=== PATIENT | male | born 1940 | race Caucasian/White ===

== ENCOUNTER 2019-07-01 15:09 | Outpatient (CLI) | payer MEDICARE, OTHER, SELFPAY | END 2019-07-01 15:10 | disposition home or self-care (01) | LOC: SPT 15:11 | PROVIDERS: Family Provider Family Medicine; PCP Family Medicine; Visit Provider Podiatrist Foot & Ankle Surgery | DX: M79.671 Pain in right foot (principal) | CPT/HCPCS: L4361 ==

== ENCOUNTER 2019-11-26 12:48 | Outpatient (CLI) | payer MEDICARE, OTHER, SELFPAY ==
--- NOTE | 2019-11-26 | CT_ITS ---
WS: [id number] CT CHEST WITHOUT INTRAVENOUS CONTRAST HISTORY: LUNG NODULES TECHNIQUE: Contiguous 5 mm axial imaging performed on the thorax. Coronal and sagittal reformats are submitted. All CT scans at [facility] use at least one of these dose optimization techniq ues: automated exposure control; mA and/or kV adjustment per patient size (includes targeted exams wh ere dose is matched to clinical indication); or iterative reconstruction. CONTRAST: None DLP: 1889.43 mGycm COMPARISON: 11/20/2018 Lungs and central airway: Lungs are hyperexpanded from emphysema. Paraseptal emphysematous changes. S table nodules in the superior segment of the LEFT lower lobe. The largest measures 4.2 mm. Subpleural 5 mm nodule in the periphery of the RIGHT lower lobe is stable. No new nodules. No pneumonia. There is some very mild soft tissue thickening along the posterior wall of the trachea which may be mucus. Pleura: Normal. No pleural effusion. Heart and pericardium: Mildly enlarged heart. No effusion. Mediastinum and oriana: No adenopathy. Vessels: Extensive atherosclerosis of the aorta. No aneurysm. Mildly dilated pulmonary artery. Chest wall and lower neck: No soft tissue masses. Upper abdomen: Negative adrenal glands. There are small hypodensities in the liver which are stable a nd probably cysts. Osseous structures: Increase in thoracic kyphosis with degenerative disc disease. No osteoblastic or osteolytic bone disease. CT/CT chest wo con [id number] IMPRESSION: 1. Stable bilateral lower lobe pulmonary nodules. No change since 11/20/2018. R ecommend additional [address] follow-up to document continued stability for a total of 2 years. 2. Chronic emphysema. 3. Atherosclerosis aorta and mild dilatation of the pulmonary artery.
== END 2019-11-26 12:49 | disposition home or self-care (01) ==
LOC: RADWPI 12:56
PROVIDERS: Family Provider Family Medicine; PCP Family Medicine; Visit Provider Family Medicine
DX: R91.8 Other nonspecific abnormal finding of lung field (principal); J43.9 Emphysema, unspecified; I70.0 Atherosclerosis of aorta; I28.1 Aneurysm of pulmonary artery
CPT/HCPCS: 71250

== ENCOUNTER 2019-11-27 15:47 | Outpatient (CLI) | payer MEDICARE, OTHER, SELFPAY | END 2019-11-27 15:48 | disposition home or self-care (01) | LOC: SPT 15:48 | PROVIDERS: Family Provider Family Medicine; PCP Family Medicine; Visit Provider Podiatrist Foot & Ankle Surgery | DX: M20.21 Hallux rigidus, right foot (principal); M20.22 Hallux rigidus, left foot; L97.512 Non-pressure chronic ulcer of other part of right foot with fat layer exposed | CPT/HCPCS: 97760; L3031 ==

== ENCOUNTER 2020-04-16 07:58 | Emergency (ER) | payer MEDICARE, OTHER, SELFPAY ==
[2020-04-16 07:59] VITALS: BP 149/63; PULSE 65; RESP 18; TEMP 36.6; O2SAT 97; BMI 32.3
--- NOTE | 2020-04-16 08:02 | CT_ITS ---
WS: [id number] CT FACIAL BONES TECHNIQUE: Noncontrast facial bones with coronal and sagittal reformatted images. CLINICAL INFORMATION: Fall/injury COMPARISON: None. DLP: 846.[address] scans at [facility] use at least one of these dose optimization techniques: automat ed exposure control; mA and/or kV adjustment per patient size (includes targeted exams where dose is matched to clinical indication); or iterative reconstruction. FINDINGS: Soft tissue edema overlying the nasal bones and left facial bones. Soft tissue edema overlying the le ft orbit. Comminuted fractures involving the anterior nasal bones. Slightly displaced left nasal bone fracture. Chronic appearing nasal septal deviation. Blood products in the left maxillary sinus. Slig htly depressed left anterior wall maxillary sinus fracture. Depression measures 2.8 mm. Slightly depressed left orbital floor fracture with herniated intraorbital fat. No entrapment of the inferior rectus. Depression measures approximately 3 mm. Left lateral orbit appears normal. Normal la sophie papyracea. Both zygoma are intact. No evidence of mandibular fracture dislocation. Normal pterygoid plates. Slight anterolisthesis C4 on C5. CT/CT facial bones wo con* [id number] IMPRESSION: 1. Left inferior orbit and anterior maxillary wall fractures. 2. Slightly depressed left inferior orbit fracture measuring 3 mm with herniat ion of intraorbital fat. No tethering of the inferior rectus. Blood products in the left maxillary sinus. 3. Comminuted anterior nasal bone fractures described above. 4. Mandible is normal in appearance. No mandibular fracture dislocation. Notified Vicky Malone at 04/16/2020 8:52 AM.
--- NOTE | 2020-04-16 08:03 | CT_ITS ---
WS: [id number] CT HEAD TECHNIQUE: Noncontrast CT of the head obtained from the skullbase to the vertex. CLINICAL INFORMATION: Fall/injury COMPARISON: 5 14 DLP: 887.[address] scans at [facility] use at least one of these dose optimization techniques: automat ed exposure control; mA and/or kV adjustment per patient size (includes targeted exams where dose is matched to clinical indication); or iterative reconstruction. FINDINGS: No evidence of intracranial hemorrhage or mass effect. Ventricular system and basal cisterns are maria nt. Mild small vessel changes with mild parenchymal volume loss. No extra-axial fluid collections. No evidence of mass or mass effect. Normal nash-white differentiation. Soft tissue edema left facial soft tissues and left orbit. Fluid and blood products within left maxil twyla sinus. Mastoid air cells are well aerated. Comminuted fractures involving the anterior nasal bon es. Depressed left maxillary sinus fracture. Facial findings will be described on the facial CT. CT/CT head wo con* [id number] IMPRESSION: 1. No evidence of intracranial hemorrhage or mass effect. 2. Mild small vessel changes. Mild parenchymal volume loss. 3. Blood products in the left maxillary sinus. 4. Left anterior maxillary sinus fracture. Slightly comminuted nasal bone frac tures. Facial fractures will be described on face CT. Notified Vicky Malone at 04/16/2020 8:43 AM.
--- NOTE | 2020-04-16 08:04 | W.ED.GENADLT ---
Documented by User: Vicky Malone 04/16/20 11:55 HPI - General Adult General: Chief complaint: Fall Stated complaint: FALL Time Seen by Provider: 04/16/20 07:59 Source: patient and EMS Mode of arrival: EMS Limitations: no limitations History of Present Illness: HPI narrative: Mr. Camejo is a nice 80-year-old male who comes in after a fall at home this morning. Patient states that his slippers did not have traction and slipped causing him to fall and hit his head on the floor. He knows he was definitely dazed but does not believe that he had any loss of consciousness when he hit the ground. Patient complains of pain to his head and face. EMS reports mild confusion at the scene that resolved and transported here to the hospital. He also had significant nasal bleeding which is also resolved on his way here to the hospital. Patient denies any neck pain. He does complain of left hip pain. EMS has not had the patient ambulate and is unsure whether he was ambulatory prior to this. Patient denies being on any blood thinners or antiplatelet agents. He denies any chronic medical problems other than enlarged prostate. Patient is unaware of anything that makes his symptoms better or worse he does not have time to really evaluate for that. He has not tried anything at home for his pain or discomfort prior to coming in. Pressure on his nose did help resolve the bleeding. Associated symptoms: Deny chest pain, confusion, diaphoresis, dyspnea, malaise, nausea, rash, palpitations, syncope or vomiting Review of Systems Const: Denies: fever(s), chills, body aches, fatigue, malaise or diaphoresis Eyes: Denies: change in vision, blurry vision, photophobia, eye discomfort, eye discharge, eye redness or yellow eyes ENMT: Denies: throat pain, odynophagia, hoarseness, swelling of lips/tongue, ear or mastoid pain, ear discharge, change in hearing or nasal discharge Card: Denies: chest pain, palpitations, irregular heart rhythm, edema, lightheadedness, syncope, pre-syncope, dyspnea on exertion or orthopnea Resp: Denies: dyspnea, productive cough, non-productive cough, wheezing, hemoptysis or chest congestion GI: Denies: abdominal pain, nausea, vomiting, hematemesis, coffee ground emesis, heartburn, diarrhea, constipation, GI cramping, hematochezia or melena : Denies: flank pain, dysuria, urinary frequency, urinary urgency or hematuria Musc: Denies: neck pain, back pain, extremity pain, extremity swelling, joint pain, joint swelling, joint redness, joint warmth or joint stiffness Skin/Breast: Denies: rash, pruritus, erythema, skin pain or skin tenderness Neuro: Denies: numbness in extremities, weakness in extremities, sensory changes, lack of coordination, difficulty walking, dizziness, vertigo, confusion, Slurred speech present or seizure-like activity Mauricio/Lymph: Denies: easy bruising, easy bleeding, petechiae, purpura or enlarged lymph nodes All/Imm: Denies: urticaria, throat swelling, tongue swelling, facial swelling or acute wheezing PFSH ED PFSH: Medical History BPH (benign prostatic hyperplasia) Hallux rigidus of both feet Surgical History H/O eye surgery Family History Father Cancer Brother Diabetes Denies family history of CAD (coronary artery disease) Clotting disorder Dementia Hyperlipidemia Psychiatric illness Chronic kidney disease (CKD) Suicide Anesthesia complication Bleeding disorder Family history of premature coronary artery disease Lung disease Hypertension Stroke Social History Smoking and tobacco status: former smoker Quit status (tobacco): has quit using tobacco Second hand smoke exposure: Yes Smoking risk assessment/counseling performed?: Yes Alcohol intake: never Desire information about alcohol rehabilitation?: No Counseling given: No Desire information about substance/drug rehabilitation?: No Counseling given: No Adopted: No Caregiver/support person: No Lives independently: Yes Household members: spouse Housing: House Marital status: Current occupational status: retired Current occupational exposures/hazards: No History of recent travel: No Current gender identity: Male Physical Exam Const: COMMON NORMALS: no acute distress, patient oriented x3, no limitations and alert GENERAL APPEARANCE: cooperative HENMT: COMMON NORMALS: normocephalic, external ears normal and EAC's normal HEAD & SCALP: normal to inspection and normocephalic FACE & SINUS: normal facial exam and face symmetric NOSE: Epistaxis present bilaterally dried blood present and Other nasal findings present (Swelling with skin abrasion noted to left eyebrow. Extraocular muscles are intact. No diplopia present. Nose swollen with hematoma present. No septal hematoma seen.) EXTERNAL EAR: Yes external ears normal EXTERNAL AUDITORY CANAL: EAC's normal MOUTH: Normal oral and palatal mucosa present, lip normal and tongue normal Eye: COMMON NORMALS: Equal, round and reactive pupils present and conjunctivae normal GENERAL EYE: appearance normal, both eyes and all related structures ALIGNMENT: Yes alignment normal PERIORBITAL: periorbital findings normal EYELID: eyelids normal CONJUNCTIVA: Yes conjunctivae normal SCLERA: sclerae normal PUPIL: Yes Equal, round and reactive pupils present Neck/C-Spine: COMMON NORMALS: full ROM, no lymphadenopathy, supple, no meningeal signs and no JVD GENERAL: Yes normal visual inspection and Yes trachea midline Chest: COMMONS NORMALS: normal inspection of the chest and normal palpation of entire chest wall Resp: COMMON NORMALS: normal respiratory effort, No retractions, No use of accessory muscles and clear to auscultation bilaterally EFFORT & INSPECTION: Yes able to speak in complete sentences and Yes symmetric chest movement AUSCULTATION: clear to auscultation bilaterally, no crackles, no rales, no rhonchi and no wheezes Cardio: COMMON NORMALS: no JVD, regular rate, regular rhythm, S1 normal heart sound present and S2 normal heart sound present RATE: regular rate RHYTHM: regular rhythm HEART SOUNDS: S1 normal heart sound present, S2 normal heart sound present, no click, no gallops, no murmurs and no rubs GI: COMMON NORMALS: Soft to palpation and No hepatosplenomegaly present PALPATION: Yes Soft to palpation, No Tenderness to palpation present (GI), No Guarding due to palpation present (GI), No Rigid due to palpation, Yes No hepatosplenomegaly present, No Hernia present, No Palpable mass present and No Pulsatile mass present : COMMON NORMALS: Yes no CVA tenderness BLADDER/KIDNEY EXAM: Yes no CVA tenderness Back/Pelvis: COMMON NORMALS: no CVA tenderness, thoracic and lumbar spine normal to inspection, no thoracic nor lumbar tenderness and thoraco-lumbar ROM normal Extremity: COMMON NORMALS: normal to inspection, full ROM, capillary refill normal, no joint enlargement, no clubbing, cyanosis or edema and no calf tenderness Neuro: COMMON NORMALS: patient oriented x3, CN's II-XII intact bilaterally, moves all extremities, no focal motor deficits and no sensory deficits noted SENSORIUM/ORIENTATION: Yes alert MENINGEAL SIGNS: Yes no meningeal signs SPEECH: speech normal Psych: COMMON NORMALS: mental status grossly normal, Normal thought process present, cooperative, normal affect, speech normal and activity/motor behavior normal SPEECH: Yes normal speech THOUGHT PROCESS: Normal thought process present Course ED course: 928 -patient up and able to ambulate without any increased pain in the left hip. Vital Signs: Vital signs: Vital Signs Temperature 97.9 F 04/16/20 07:59 Pulse Rate 72 04/16/20 11:11 Respiratory Rate 14 04/16/20 11:11 Blood Pressure 103/57 04/16/20 11:11 Pulse Oximetry 96 04/16/20 11:11 MDM - General Adult MDM Narrative: Medical decision making narrative: 1030 -Mr. Camejo is a nice 80-year-old male who had a mechanical fall at home after he tripped and fell forward. He hit his head but did not have loss of consciousness. His head CT is normal. He denies any neck pain. His facial bone CT results reviewed with Dr. Tamez his global commodity manager who states the patient can follow-up with him as an outpatient. I was unable to reach Dr. George as he is not on-call but I did review the case with Dr. Hernández out of [facility] and he agrees to see the patient in follow-up. Patient understands the importance of this. The patient was able to ambulate here without increased pain in his hip but nonetheless I have recommended a CT to further evaluate and to rule out a fracture but he refuses. He believes it is just bruised. He understands that my evaluation is limited by just x-ray and a CT scan could reveal a hip fracture which could become life and limb threatening if missed. Despite my warnings the patient declines any further evaluation and wants to go home. He is confident it is just bruised and declines any further care. Patient is clearly capable of making his own decisions his is encouraged him to stay and get this evaluation but he declines. Patient does understand though he is welcome to return here at any time should he change his mind or his symptoms change or worsen. Lab Data: Attestation: I reviewed the patient's lab results. Labs: Lab Results 04/16/20 04/16/20 Range/Units 09:20 09:20 WBC 8.6 (4.0-10.0) 10^3/ uL RBC 4.66 (4.1-5.3) 10^6/u L Hgb 14.7 (11.7-16.6) g/dL Hct 44.9 (42.0-52.0) % MCV 96.4 H (80-94) fL MCH 31.5 (28.0-34.0) pg MCHC 32.7 (30.0-36.0) g/dL RDW 12.3 (12.1-15.1) % Plt Count 174 (130-400) 10^3/c mm MPV 10.9 H (7.4-10.4) fL Neut % (Auto) 87.1 % Lymph % (Auto) 5.0 % [place] % (Auto) 7.0 % Eos % (Auto) 0.5 % Baso % (Auto) 0.1 % Neut # (Auto) 7.47 (1.8-7.7) 10^3/u L Lymph # (Auto) 0.4 L (0.8-4.8) 10^3/u L [place] # (Auto) 0.6 (0.2-0.9) 10^3/u L Eos # (Auto) 0.0 (0.0-0.8) 10^3/u L Baso # (Auto) 0.0 (0.0-0.1) 10^3/u L Nucleated RBC % (a uto) 0 % Nucleated RBCs # 0.0 /100WBC Sodium 135 L (136-145) mmol/L Potassium 4.3 (3.5-5.1) mmol/L Chloride 100 (98-107) mmol/L Carbon Dioxide 26 (22-29) mmol/L Anion Gap 13.3 (5-19) BUN 18 (8-23) mg/dL Creatinine 0.8 (0.7-1.2) mg/dL GFR Calculation Not Reportable Glucose 120 H (65-115) mg/dL Calculated Osmolal ity 283 L (285-295) mOsm/k g Calcium 9.0 (8.5-10.5) mg/dL Total Bilirubin 0.5 (0.15-1.2) mg/dL AST 19 (0-40) U/L ALT 17 (0-41) U/L Alkaline Phosphata se 90 (40-130) IU/L Total Protein 6.6 (6.6-8.7) g/dL Albumin 4.0 (3.5-5.2) g/dL Globulin 2.6 (1.3-4.6) g/dL Imaging Data^: CT Head: Radiologist's impression: [address] [place] [address] CT Scan Report Signed Patient: Kendall Camejo Unit #: [id number] : 1940 Age/Sex: 80 / M ADM Date: 04/16/20 Loc: ER Room/Bed: Attending Dr: Ordering Provider/Ordering MD: Vicyk Malone DO Date of Service: 04/16/20 Procedure(s): CT head wo con* [id number] Accession Number(s): [id number] Report Number: [id number] WS: [id number] CT HEAD TECHNIQUE: Noncontrast CT of the head obtained from the skullbase to the vertex. CLINICAL INFORMATION: Fall/injury COMPARISON: 9013 DLP: 887.[address] scans at [facility] use at least one of these dose optimization techniques: automated exposure control; mA and/or kV adjustment per patient size (includes targeted exams where dose is matched to clinical indication); or iterative reconstruction. FINDINGS: No evidence of intracranial hemorrhage or mass effect. Ventricular system and basal cisterns are patent. Mild small vessel changes with mild parenchymal volume loss. No extra-axial fluid collections. No evidence of mass or mass effect. Normal nash-white differentiation. Soft tissue edema left facial soft tissues and left orbit. Fluid and blood products within left maxillary sinus. Mastoid air cells are well aerated. Comminuted fractures involving the anterior nasal bones. Depressed left maxillary sinus fracture. Facial findings will be described on the facial CT. CT/CT head wo con* [id number] IMPRESSION: 1. No evidence of intracranial hemorrhage or mass effect. 2. Mild small vessel changes. Mild parenchymal volume loss. 3. Blood products in the left maxillary sinus. 4. Left anterior maxillary sinus fracture. Slightly comminuted nasal bone fractures. Facial fractures will be described on face CT. Notified Vicky Malone at 04/16/2020 8:43 AM. Dictated By: Cipriano Salomon MD Signed By: Cipriano Salomon MD Signed Date/Time: 04/16/20 0844 DD/ CT Facial Bones: Radiologist's impression: [address] [place] [address] CT Scan Report Signed Patient: Kendall Camejo Unit #: [id number] : 1940 Age/Sex: 80 / M ADM Date: 04/16/20 Loc: ER Room/Bed: Attending Dr: Ordering Provider/Ordering MD: Vicky Malone DO Date of Service: 04/16/20 Procedure(s): CT facial bones wo con* [id number] Accession Number(s): [id number] Report Number: [id number] WS: [id number] CT FACIAL BONES TECHNIQUE: Noncontrast facial bones with coronal and sagittal reformatted images. CLINICAL INFORMATION: Fall/injury COMPARISON: None. DLP: 846.[address] scans at [facility] use at least one of these dose optimization techniques: automated exposure control; mA and/or kV adjustment per patient size (includes targeted exams where dose is matched to clinical indication); or iterative reconstruction. FINDINGS: Soft tissue edema overlying the nasal bones and left facial bones. Soft tissue edema overlying the left orbit. Comminuted fractures involving the anterior nasal bones. Slightly displaced left nasal bone fracture. Chronic appearing nasal septal deviation. Blood products in the left maxillary sinus. Slightly depressed left anterior wall maxillary sinus fracture. Depression measures 2.8 mm. Slightly depressed left orbital floor fracture with herniated intraorbital fat. No entrapment of the inferior rectus. Depression measures approximately 3 mm. Left lateral orbit appears normal. Normal lamina papyracea. Both zygoma are intact. No evidence of mandibular fracture dislocation. Normal pterygoid plates. Slight anterolisthesis C4 on C5. CT/CT facial bones wo con* [id number] IMPRESSION: 1. Left inferior orbit and anterior maxillary wall fractures. 2. Slightly depressed left inferior orbit fracture measuring 3 mm with herniation of intraorbital fat. No tethering of the inferior rectus. Blood products in the left maxillary sinus. 3. Comminuted anterior nasal bone fractures described above. 4. Mandible is normal in appearance. No mandibular fracture dislocation. Notified Vicky Malone at 04/16/2020 8:52 AM. Dictated By: Cipriano Salomon MD Signed By: Cipriano Salomon MD Signed Date/Time: 04/16/20855 DD/ 3 Pelvis: Attestation: I personally reviewed and interpreted this imaging study as follows: My impression: No acute fractures dislocations Lt. Hip: Attestation: I personally reviewed and interpreted this imaging study as follows: My impression: No acute fractures or dislocations EKG Data^: EKG 1: Attestation: I personally reviewed and interpreted this EKG as follows: EKG interpretation date: 04/16/20 EKG interpretation time: 10:17 Interpretation: Normal sinus rhythm at 68 beats a minute, no blocks, normal intervals, no acute ST-T wave changes. Computer generated interpretation: Face CT 04/16/20 08:02 IMPRESSION: 1. Left inferior orbit and anterior maxillary wall fractures. 2. Slightly depressed left inferior orbit fracture measuring 3 mm with herniation of intraorbital fat. No tethering of the inferior rectus. Blood products in the left maxillary sinus. 3. Comminuted anterior nasal bone fractures described above. 4. Mandible is normal in appearance. No mandibular fracture dislocation. Notified Vicky Malone at 04/16/2020 8:[address] 04/16/20 08:03 IMPRESSION: 1. No evidence of intracranial hemorrhage or mass effect. 2. Mild small vessel changes. Mild parenchymal volume loss. 3. Blood products in the left maxillary sinus. 4. Left anterior maxillary sinus fracture. Slightly comminuted nasal bone fractures. Facial fractures will be described on face CT. Notified Vicky Malone at 04/16/2020 8:43 AM. Hip/Pelvis X-Ray 04/16/20 08:12 Impression: Negative left hip and pelvis. Discharge Plan Discharge Patient Disposition: Home Clinical Impression: Laceration, Skin tear Concussion without loss of consciousness Qualifiers: Encounter type: initial encounter Qualified Code(s): S06.0X0A - Concussion without loss of consciousness, initial encounter Orbital floor fracture Qualifiers: Encounter type: initial encounter Fracture type: closed Laterality: left Qualified Code(s): S02.32XA - Fracture of orbital floor, left side, initial encounter for closed fracture Fracture of maxillary sinus Qualifiers: Encounter type: initial encounter Fracture type: closed Qualified Code(s): S02.401A - Maxillary fracture, unspecified side, initial encounter for closed fracture Fracture of nasal bones Qualifiers: Encounter type: initial encounter Fracture type: closed Qualified Code(s): S02.2XXA - Fracture of nasal bones, initial encounter for closed fracture Condition: Stable Prescriptions: New Zithromax Z-Abhishek 250 mg tablet See Rx Instructions .ROUTE .COMPLEX Qty: 6 RF: 0 Zofran 4 mg tablet 4 mg PO Q6H PRN (Reason: nausea and vomiting) Qty: 20 RF: 0 No Action tamsulosin 0.4 mg capsule 0.4 mg PO ONCE RF: 0 triamcinolone acetonide 0.1 % cream 1 applic TOPICAL BID RF: 0 sennosides-docusate sodium [Lax Stool Softener With Senna] 8.6-50 mg tablet 1 tab-cap PO ONCE RF: 0 potassium 99 mg tablet PO RF: 0 magnesium 250 mg tablet 250 mg PO ONCE RF: 0 Men 50 Plus Multivitamin 300-600-300 mcg tablet 1 tab PO ONCE RF: 0 (DME) Sole Supports Qty: 1 RF: 0 (DME) carbon fiber See Rx Instructions .ROUTE .MEDSUPPLY Qty: 1 RF: 0 (DME) Gel toe sleeve, right hallux See Rx Instructions .Route .MEDSUPPLY Qty: 1 RF: 0 mupirocin 2 % ointment 1 applic TOPICAL BID 42 Days Qty: 22 RF: 1 Discharge Orders: Discharge Order (Routine); Ordered 04/16/20 Ordered By: Vicky Malone Referrals: Jose George MD [Physician] - 1-3 days Robert Tamez MD [Physician] - 1-3 days Robert Floyd MD [Primary Care Provider] - 1-3 days Discharge Diet: Advance as tolerated Discharge Activity: Increase activity as tolerated Patient Instructions: Fractures - Facial, Laceration (ED), Concussion (ED), Fractures - Nasal Activity Restrictions/Additional Instructions: Please return to the ER immediately for any of the signs or symptoms listed on your discharge instruction sheets, worsening/changing of your symptoms, you are not getting better as quickly as expected, or for ANY other cause or concerns. Be certain to follow-up with Dr. Floyd in 14 days to have your sutures removed. If you change your mind and she is to have further evaluation done of your left hip you are free to return here at any time for recheck. As I explained to you some hip fractures can be hard to see and I have offered and recommended to have a CT scan of your hip done today but you have declined but if you continue to have pain in your left hip please return to the ER for recheck. Be certain to follow-up with Dr. George or with Dr. Hernández [phone] at [facility] in the next 3 to 4 days for recheck of the fractures in your nose. Do not blow your nose or try to remove the clots from your nose until seen and evaluated by the ENT doctor of your choice. Discharge Date/Time: 04/16/20 11:48 Coding Level of Care Code ED Technician [employer] for Chg Fwd Exam Comprehensive Documented by User: [email or web address] Millan 04/16/20 13:41 HPI - General Adult General: Chief complaint: Fall Stated complaint: FALL Time Seen by Provider: 04/16/20 07:59 [facility] ED PFSH: Medical History BPH (benign prostatic hyperplasia) Hallux rigidus of both feet Surgical History H/O eye surgery Family History Father Cancer Brother Diabetes Denies family history of CAD (coronary artery disease) Clotting disorder Dementia Hyperlipidemia Psychiatric illness Chronic kidney disease (CKD) Suicide Anesthesia complication Bleeding disorder Family history of premature coronary artery disease Lung disease Hypertension Stroke Social History Smoking and tobacco status: former smoker Quit status (tobacco): has quit using tobacco Second hand smoke exposure: Yes Smoking risk assessment/counseling performed?: Yes Alcohol intake: never Desire information about alcohol rehabilitation?: No Counseling given: No Desire information about substance/drug rehabilitation?: No Counseling given: No Adopted: No Caregiver/support person: No Lives independently: Yes Household members: spouse Housing: House Marital status: Current occupational status: retired Current occupational exposures/hazards: No History of recent travel: No Current gender identity: Male Procedures Laceration Laceration 1: Site: upper extremity (posterior elbow) Side (If applicable): right Size (cm): 3.5 Description: linear and other (contused) Depth: simple, single layer Local Anesthetic: lidocaine 1% and with epi Amount of anesthesia used (mL): 6 Pre-repair: wound explored, irrigated extensively, deep structures intact and extensive debridement Skin layer closed with: nylon Size (cm): 5-0 Number of sutures: 4 Technique: simple, interrupted Course ED course: large skin tear to the dorsal right hand, loose skin approximated, steri-strips with skin adhesive applied; contused soft tissue, no active bleeding. Vital Signs: Vital signs: Vital Signs Temperature 97.9 F 04/16/20 07:59 Pulse Rate 72 04/16/20 11:11 Respiratory Rate 14 04/16/20 11:11 Blood Pressure 103/57 04/16/20 11:11 Pulse Oximetry 96 04/16/20 11:11 MDM - General Adult Lab Data: Labs: Lab Results 04/16/20 04/16/20 Range/Units 09:20 09:20 WBC 8.6 (4.0-10.0) 10^3/ uL RBC 4.66 (4.1-5.3) 10^6/u L Hgb 14.7 (11.7-16.6) g/dL Hct 44.9 (42.0-52.0) % MCV 96.4 H (80-94) fL MCH 31.5 (28.0-34.0) pg MCHC 32.7 (30.0-36.0) g/dL RDW 12.3 (12.1-15.1) % Plt Count 174 (130-400) 10^3/c mm MPV 10.9 H (7.4-10.4) fL Neut % (Auto) 87.1 % Lymph % (Auto) 5.0 % [place] % (Auto) 7.0 % Eos % (Auto) 0.5 % Baso % (Auto) 0.1 % Neut # (Auto) 7.47 (1.8-7.7) 10^3/u L Lymph # (Auto) 0.4 L (0.8-4.8) 10^3/u L [place] # (Auto) 0.6 (0.2-0.9) 10^3/u L Eos # (Auto) 0.0 (0.0-0.8) 10^3/u L Baso # (Auto) 0.0 (0.0-0.1) 10^3/u L Nucleated RBC % (a uto) 0 % Nucleated RBCs # 0.0 /100WBC Sodium 135 L (136-145) mmol/L Potassium 4.3 (3.5-5.1) mmol/L Chloride 100 (98-107) mmol/L Carbon Dioxide 26 (22-29) mmol/L Anion Gap 13.3 (5-19) BUN 18 (8-23) mg/dL Creatinine 0.8 (0.7-1.2) mg/dL GFR Calculation Not Reportable Glucose 120 H (65-115) mg/dL Calculated Osmolal ity 283 L (285-295) mOsm/k g Calcium 9.0 (8.5-10.5) mg/dL Total Bilirubin 0.5 (0.15-1.2) mg/dL AST 19 (0-40) U/L ALT 17 (0-41) U/L Alkaline Phosphata se 90 (40-130) IU/L Total Protein 6.6 (6.6-8.7) g/dL Albumin 4.0 (3.5-5.2) g/dL Globulin 2.6 (1.3-4.6) g/dL EKG Data^: EKG 1: Computer generated interpretation: Face CT 04/16/20 08:02 IMPRESSION: 1. Left inferior orbit and anterior maxillary wall fractures. 2. Slightly depressed left inferior orbit fracture measuring 3 mm with herniation of intraorbital fat. No tethering of the inferior rectus. Blood products in the left maxillary sinus. 3. Comminuted anterior nasal bone fractures described above. 4. Mandible is normal in appearance. No mandibular fracture dislocation. Notified Vicky Malone at 04/16/2020 8:[address] 04/16/20 08:03 IMPRESSION: 1. No evidence of intracranial hemorrhage or mass effect. 2. Mild small vessel changes. Mild parenchymal volume loss. 3. Blood products in the left maxillary sinus. 4. Left anterior maxillary sinus fracture. Slightly comminuted nasal bone fractures. Facial fractures will be described on face CT. Notified Vicky Malone at 04/16/2020 8:43 AM. Hip/Pelvis X-Ray 04/16/20 08:12 Impression: Negative left hip and pelvis. Discharge Plan Discharge Patient Disposition: Home Clinical Impression: Laceration, Skin tear Concussion without loss of consciousness Qualifiers: Encounter type: initial encounter Qualified Code(s): S06.0X0A - Concussion without loss of consciousness, initial encounter Orbital floor fracture Qualifiers: Encounter type: initial encounter Fracture type: closed Laterality: left Qualified Code(s): S02.32XA - Fracture of orbital floor, left side, initial encounter for closed fracture Fracture of maxillary sinus Qualifiers: Encounter type: initial encounter Fracture type: closed Qualified Code(s): S02.401A - Maxillary fracture, unspecified side, initial encounter for closed fracture Fracture of nasal bones Qualifiers: Encounter type: initial encounter Fracture type: closed Qualified Code(s): S02.2XXA - Fracture of nasal bones, initial encounter for closed fracture Condition: Stable Prescriptions: New Zithromax Z-Abhishek 250 mg tablet See Rx Instructions .ROUTE .COMPLEX Qty: 6 RF: 0 Zofran 4 mg tablet 4 mg PO Q6H PRN (Reason: nausea and vomiting) Qty: 20 RF: 0 No Action tamsulosin 0.4 mg capsule 0.4 mg PO ONCE RF: 0 triamcinolone acetonide 0.1 % cream 1 applic TOPICAL BID RF: 0 sennosides-docusate sodium [Lax Stool Softener With Senna] 8.6-50 mg tablet 1 tab-cap PO ONCE RF: 0 potassium 99 mg tablet PO RF: 0 magnesium 250 mg tablet 250 mg PO ONCE RF: 0 Men 50 Plus Multivitamin 300-600-300 mcg tablet 1 tab PO ONCE RF: 0 (DME) Sole Supports Qty: 1 RF: 0 (DME) carbon fiber See Rx Instructions .ROUTE .MEDSUPPLY Qty: 1 RF: 0 (DME) Gel toe sleeve, right hallux See Rx Instructions .Route .MEDSUPPLY Qty: 1 RF: 0 mupirocin 2 % ointment 1 applic TOPICAL BID 42 Days Qty: 22 RF: 1 Discharge Orders: Discharge Order (Routine); Ordered 04/16/20 Ordered By: Vicky Malone Referrals: Jose George MD [Physician] - 1-3 days Robert Tamez MD [Physician] - 1-3 days Robert Floyd MD [Primary Care Provider] - 1-3 days Discharge Diet: Advance as tolerated Discharge Activity: Increase activity as tolerated Patient Instructions: Fractures - Facial, Laceration (ED), Concussion (ED), Fractures - Nasal Activity Restrictions/Additional Instructions: Please return to the ER immediately for any of the signs or symptoms listed on your discharge instruction sheets, worsening/changing of your symptoms, you are not getting better as quickly as expected, or for ANY other cause or concerns. Be certain to follow-up with Dr. Floyd in 14 days to have your sutures removed. If you change your mind and she is to have further evaluation done of your left hip you are free to return here at any time for recheck. As I explained to you some hip fractures can be hard to see and I have offered and recommended to have a CT scan of your hip done today but you have declined but if you continue to have pain in your left hip please return to the ER for recheck. Be certain to follow-up with Dr. George or with Dr. Hernández [phone] at [facility] and [place] in the next 3 to 4 days for recheck of the fractures in your nose. Do not blow your nose or try to remove the clots from your nose until seen and evaluated by the ENT doctor of your choice. Discharge Date/Time: 04/16/20 11:48 Coding Level of Care Code ED Technician [employer]communication Systems for Chg Fwd Exam Comprehensive
--- NOTE | 2020-04-16 08:12 | XR_ITS ---
WS: [id number] Left hip, AP and frog leg, AP pelvis, 04/16/2020 Clinical Data: Fall/injury Comparison: None. Findings: No fractures or dislocations are seen. The hip joint is intact. The soft tissues are not remarkable. The adjacent pelvis is normal. There is fecal material in the rectum. XR/XR hip LT 2-3V wo/w pel* [id number] Impression: Negative left hip and pelvis.
--- NOTE | 2020-04-16 08:33 | PC.NURSE ---
patient to ct
[2020-04-16] MEDS: tetanus-dipt-pertussis 0.5 mL SDV IM (08:45)
[2020-04-16] MEDS: sodium chloride 0.9% 1,000 ML 999 ML IV (09:27)
[2020-04-16 09:28] LABS: Basophils % 0.1 %; Eosinophils % 0.5 %; Hematocrit 44.9 % (42.0-52.0); Hemoglobin 14.7 g/dL (11.7-16.6); Lymphocytes # 0.4 10^3/uL (0.8-4.8); Mean Corpuscular HGB Conc 32.7 g/dL (30.0-36.0); Mean Corpuscular Hemoglobin 31.5 pg (28.0-34.0); Mean Corpuscular Volume 96.4 fL (80-94); Mean Platelet Volume 10.9 fL (7.4-10.4); Monocytes # 0.6 10^3/uL (0.2-0.9); Neutrophils # 7.47 10^3/uL (1.8-7.7); Neutrophils % 87.1 %; Nucleated Red Blood Cells % 0 %; Platelet Count 174 10^3/cmm (130-400); Red Blood Count 4.66 10^6/uL (4.1-5.3); Red Cell Distribution Width 12.3 % (12.1-15.1); White Blood Count 8.6 10^3/uL (4.0-10.0)
[2020-04-16 09:46] LABS: Alanine Aminotransferase 17 U/L (0-41); Alkaline Phosphatase 90 IU/L (40-130); Anion Gap 13.3 (5-19); Aspartate Amino Transferase 19 U/L (0-40); Blood Urea Nitrogen 18 mg/dL (8-23); Carbon Dioxide 26 mmol/L (22-29); Chloride 100 mmol/L (98-107); Globulin 2.6 g/dL (1.3-4.6); Glucose 120 mg/dL (65-115); Osmolality Calculated 283 mOsm/kg (285-295); Potassium 4.3 mmol/L (3.5-5.1); Sodium 135 mmol/L (136-145); Total Bilirubin 0.5 mg/dL (0.15-1.2); Total Protein 6.6 g/dL (6.6-8.7)
--- NOTE | 2020-04-16 10:11 | ECG_ITS ---
[facility] Test Date: 2020-04-16 Pat Name: Kendall Camejo Department: Room: Gender: Male Surgical Technology Instructor: : 1940 Requested By: Vicky Schwab Order Number: [id number] Young MD: Ambrosio Rubio M.D. Measurements Intervals [place] Rate: 68 P: 43 MO: 207 QRS: -37 QRSD: 90 T: -4 QT: 407 QTc: 435 Interpretive Statements SINUS RHYTHM LEFT AXIS DEVIATION [QRS AXIS < -30] LOW QRS VOLTAGE IN PRECORDIAL LEADS [QRS DEFLECTION < 1.0 mV IN CHEST LEADS] PATTERN CONSISTENT WITH PULMONARY DISEASE No previous ECG available for comparison Electronically Signed On 04-16-2020 18:23:08 CDT by Ambrosio Rubio M.D. [id number]
[2020-04-16 11:11] VITALS: BP 103/57; PULSE 72; RESP 14; O2SAT 96
[2020-04-16] MEDS: ondansetron 2 mg/ML SDV 2 mL 4 MG IM (11:21)
--- NOTE | 2020-04-16 15:43 | DCPLANNER ---
Dr. Haider office called outsole caser wanting records for patient for a follow up appointment. social work manager faxed patients records to the office of Dr. George. Patient has a follow up appointment scheduled for Monday, April 17, [address] at 8:[address] George, outsole caser was told that patient is aware of appointment.
--- NOTE | 2020-04-23 14:58 | DCPLANNER ---
Patient had a follow up appointment scheduled for 04.17.[address] George. Patient did attend appointment.
== END 2020-04-16 11:48 | disposition home or self-care (01) ==
PROVIDERS: Emergency Provider Emergency Medicine; PCP Family Medicine
DX: S06.0X0A Concussion without loss of consciousness, initial encounter (principal); S02.32XA Fracture of orbital floor, left side, initial encounter for closed fracture; S02.401A Maxillary fracture, unspecified side, initial encounter for closed fracture; S02.2XXA Fracture of nasal bones, initial encounter for closed fracture; S01.112A Laceration without foreign body of left eyelid and periocular area, initial encounter; W01.0XXA Fall on same level from slipping, tripping and stumbling without subsequent striking against object, initial encounter; Z87.891 Personal history of nicotine dependence; Z23 Encounter for immunization
CPT/HCPCS: 12002; 12345; 70450; 70486; 73502; 80053; 85025; 90471; 90715; 93005; 96360; 96372; 99282; 99284; J2405; J7030

== ENCOUNTER 2020-08-04 19:05 | Emergency (ER) | payer MEDICARE, OTHER, SELFPAY ==
[2020-08-04 19:09] VITALS: BP 162/80; PULSE 96; RESP 18; TEMP 36.7; O2SAT 98; BMI 31.8
--- NOTE | 2020-08-04 19:18 | ED_ITS ---
HPI - Extremity Problem General: Chief complaint: Extremity Problem,Nontraumatic Stated complaint: infected toe Time Seen by Provider: 08/04/20 19:13 Source: patient Mode of arrival: ambulatory Limitations: no limitations History of Present Illness: HPI Narrative: 80-year-old male complaining of redness, swelling and pain of his great toe on the right for the last 3 to 4 days. 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 Ledezma. Has developed similar symptoms about a year ago, required surgical debridement and wound care follow-up. No history of diabetes or peripheral vascular disease. No history of trauma or injury to the area. Reports subjective fever last night. MD Complaint: extremity pain Onset (ago): day(s) Associated symptoms: Reports fever(s); Deny chest pain or rash Review of Systems General: Reports: 10 or more systems reviewed and unremarkable except in HPI and below Const: Reports: fever(s), chills and body aches; Denies: fatigue, malaise or night sweats Card: Denies: chest pain, palpitations, irregular heart rhythm, edema or swelling of feet/ankles Resp: Denies: dyspnea, productive cough or wheezing GI: Denies: nausea, vomiting or diarrhea : Denies: difficulty urinating or urinary frequency Skin/Breast: Reports: erythema, sores and non-healing lesions; Denies: rash or pruritus Neuro: Denies: numbness in extremities, weakness in extremities, difficulty walking, frequent falls or dizziness Endo: Denies: polyuria or polydipsia Mauricio/Lymph: Denies: easy bruising [facility] ED PFSH: Medical History (Updated 08/04/20 @ 20:52 by Darcie John MD) BPH (benign prostatic hyperplasia) Hallux rigidus of both feet Surgical History H/O eye surgery Family History Father Cancer Brother Diabetes Denies family history of CAD (coronary artery disease) Clotting disorder Dementia Hyperlipidemia Psychiatric illness Chronic kidney disease (CKD) Suicide Anesthesia complication Bleeding disorder Family history of premature coronary artery disease Lung disease Hypertension Stroke Social History Smoking and tobacco status: former smoker Quit status (tobacco): has quit using tobacco Second hand smoke exposure: Yes Smoking risk assessment/counseling performed?: Yes Alcohol intake: never Desire information about alcohol rehabilitation?: No Counseling given: No Desire information about substance/drug rehabilitation?: No Counseling given: No Adopted: No Caregiver/support person: No Lives independently: Yes Household members: spouse Housing: House Marital status: Current occupational status: retired Current occupational exposures/hazards: No History of recent travel: No Current gender identity: Male Physical Exam Const: COMMON NORMALS: no acute distress, patient oriented x3, no limitations and healthy appearing GENERAL APPEARANCE: cooperative, comfortable and well kempt; not in distress, not anxious and not ill appearing ORIENTATION/CONSCIOUSNESS: Yes awake, Yes oriented to person and Yes oriented to place HENMT: COMMON NORMALS: normocephalic and atraumatic HEAD & SCALP: normocephalic and atraumatic FACE & SINUS: face symmetric Eye: COMMON NORMALS: Equal, round and reactive pupils present, EOMs intact bilaterally, conjunctivae normal and no scleral icterus CONJUNCTIVA: Yes conjunctivae normal PUPIL: Yes Equal, round and reactive pupils present Lymph: LYMPHATIC: no lymphadenopathy noted Resp: COMMON NORMALS: normal respiratory effort and No use of accessory muscles EFFORT & INSPECTION: Yes able to speak in complete sentences Cardio: COMMON NORMALS: regular rate, regular rhythm, S1 normal heart sound present and S2 normal heart sound present RATE: regular rate RHYTHM: regular rhythm HEART SOUNDS: S1 normal heart sound present and S2 normal heart sound present GI: COMMON NORMALS: Normal to inspection, nondistended, normoactive bowel sounds present, Soft to palpation, non-tender and No hepatosplenomegaly present PALPATION: Yes Soft to palpation and Yes No hepatosplenomegaly present Extremity: GENERAL: Yes normal exam except as noted RIGHT LOWER EXTREMITY: Yes foot & digits (Callus with central ulcer, pad of the great toe. Mild surrounding swelling) Right foot and digits: Yes inspection and Yes other (No streaking, necrosis, fluctuance, drainage) Neuro: COMMON NORMALS: patient oriented x3, CN's II-XII intact bilaterally, moves all extremities and no focal motor deficits SENSORIUM/ORIENTATION: Yes oriented to person and Yes oriented to place Psych: APPEARANCE: Yes well kempt Skin: COMMON NORMALS: no rashes or lesions noted GENERAL SKIN EXAM: no rashes or lesions noted LESIONS: lesion noted Course Vital Signs: Vital signs: Vital Signs Temperature 98.0 F 08/04/20 19:09 Pulse Rate 82 08/04/20 19:25 Respiratory Rate 18 08/04/20 19:09 Blood Pressure 162/80 08/04/20 19:09 Pulse Oximetry 98 08/04/20 19:09 MDM - Extremity (Nontraumatic) MDM Narrative: Medical decision making narrative: 80-year-old male ,hx of 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 Differential diagnosis; osteomyelitis, necrotizing fasciitis, cellulitis, gangrene Afebrile, vital signs stable. Well-appearing. Swelling and erythema limited to the toe, minimal extension to the forefoot. No leukocytosis. Baseline CRP and ESR ordered. CRP is mildly elevated 25.5, ESR is still pending. CT does not show any definitive signs of osteomyelitis at this time. Dose of IV Ancef administered, will place the patient on Keflex 3 times daily and have him follow-up as soon as possible with his electric brain wave equipment mechanic, likely will require surgical debridement again Medical Records: Attestation: I reviewed the patient's medical records. Lab Data: Attestation: I reviewed the patient's lab results. Labs: Lab Results 08/04/20 08/04/20 08/04/20 Range/Units 19:44 19:44 19:44 WBC 5.8 (4.0-10.0) 10^3/ uL RBC 4.48 (4.1-5.3) 10^6/u L Hgb 14.1 (11.7-16.6) g/dL Hct 42.9 (42.0-52.0) % MCV 95.8 H (80-94) fL MCH 31.5 (28.0-34.0) pg MCHC 32.9 (30.0-36.0) g/dL RDW 12.8 (12.1-15.1) % Plt Count 144 (130-400) 10^3/c mm MPV 12.0 H (7.4-10.4) fL Neut % (Auto) 72.7 % Lymph % (Auto) 14.4 % Desha % (Auto) 11.0 % Eos % (Auto) 1.5 % Baso % (Auto) 0.2 % Neut # (Auto) 4.25 (1.8-7.7) 10^3/u L Lymph # (Auto) 0.8 (0.8-4.8) 10^3/u L Desha # (Auto) 0.6 (0.2-0.9) 10^3/u L Eos # (Auto) 0.1 (0.0-0.8) 10^3/u L Baso # (Auto) 0.0 (0.0-0.1) 10^3/u L Nucleated RBC % (a uto) 0 % Nucleated RBCs # 0.0 /100WBC ESR 16 H (0-10) mm/hr Sodium 134 L (136-145) mmol/L Potassium 4.6 (3.5-5.1) mmol/L Chloride 99 (98-107) mmol/L Carbon Dioxide 26 (22-29) mmol/L Anion Gap 13.6 (5-19) BUN 21 (8-23) mg/dL Creatinine 1.2 (0.7-1.2) mg/dL GFR Calculation Not Reportable Glucose 135 H (65-115) mg/dL Calculated Osmolal ity 283 L (285-295) mOsm/k g Calcium 8.7 (8.5-10.5) mg/dL Total Bilirubin 0.5 (0.15-1.2) mg/dL AST 21 (0-40) U/L ALT 15 (0-41) U/L Alkaline Phosphata se 88 (40-130) IU/L C-Reactive Protein 25.0 H (0.0-4.9) mg/L Total Protein 6.5 L (6.6-8.7) g/dL Albumin 3.6 (3.5-5.2) g/dL Globulin 2.9 (1.3-4.6) g/dL Discharge Plan Discharge Patient Disposition: Home Clinical Impression: Callous ulcer, limited to breakdown of skin, Soft tissue infection of foot Condition: Stable Prescriptions: New Keflex 500 mg capsule 500 mg PO TID 7 Days Qty: 21 RF: 0 No Action tamsulosin 0.4 mg capsule 0.4 mg PO DAILY@1000 RF: 0 triamcinolone acetonide 0.1 % cream 1 applic TOPICAL BID RF: 0 sennosides-docusate sodium [Lax Stool Softener With Senna] 8.6-50 mg tablet 1 tab-cap PO DAILY PRN (Reason: Constipation) RF: 0 magnesium 250 mg tablet 250 mg PO DAILY@1000 RF: 0 Men 50 Plus Multivitamin 300-600-300 mcg tablet 1 tab PO DAILY@1000 RF: 0 (DME) Sole Supports Qty: 1 RF: 0 (DME) carbon fiber See Rx Instructions .ROUTE .MEDSUPPLY Qty: 1 RF: 0 (DME) Gel toe sleeve, right hallux See Rx Instructions .Route .MEDSUPPLY Qty: 1 RF: 0 mupirocin 2 % ointment 1 applic TOPICAL BID 42 Days Qty: 22 RF: 1 Tylenol 325 mg Tablet 325 - 650 mg PO QID PRN (Reason: fever/pain) RF: 0 Advil 200 mg Tablet 200 mg PO Q6H PRN (Reason: Pain) RF: 0 potassium 99 mg PO DAILY@1000 RF: 0 Discharge Orders: Discharge ED (Routine); Ordered 08/04/20 Ordered By: Darcie John Referrals: Robert Floyd MD [Primary Care Provider] - Discharge Diet: Advance as tolerated Discharge Activity: Resume usual activity Patient Instructions: Cellulitis (ED) Activity Restrictions/Additional Instructions: Call your electric brain wave equipment mechanic tomorrow morning to request a follow-up appointment as soon as possible. Keep the area clean and dry, wash with soap and water and covered with a fresh dressing daily. Return immediately to the ER if you develop fever, or if the swelling and redness continues to worsen or spread further. Coding Level of Care Code ED Insurance Verifier for Tanisha Fwd Exam Comprehensive
--- NOTE | 2020-08-04 19:24 | CTR_ITS ---
PROCEDURE INFORMATION: Exam: CT Right Lower Extremity Without Contrast, Foot Exam date and time: 08/04/2020 7:45 PM Age: 80 years old Clinical indication: Other: Ulcer on great toe; Additional info: Ulcer of great toe, R/O osteo TECHNIQUE: Imaging protocol: CT of the Right lower extremity without contrast was performed. Exam focused on the foot. Radiation optimization: All CT scans at this facility use at least one of these dose optimization techniques: automated exposure control; mA and/or kV adjustment per patient size (includes targeted exams where dose is matched to clinical indication); or iterative reconstruction. COMPARISON: [facility] [place] Toe RIGHT 08/16/2018 10:06 AM RADIATION DOSE METRICS: Total DLP (mGy-cm): 238.45 FINDINGS: Bones/joints: Osseous structures are diffusely demineralized. No focal aggressive lytic bone lesion. No acute periosteal bone reaction changes. No fractures. No joint space subluxation or dislocation. Osteoarthritis throughout the digits. Soft tissues: Focal soft tissue ulcer on the plantar surface of the great toe. Soft tissue thickening across the plantar surface of the great toe. No focal drainable fluid collection. Vasculature: Scattered arterial wall calcifications. CT/CT foot RT wo con* [id number] IMPRESSION: 1. No definite evidence of osteomyelitis in the right foot great toe, but MRI would provide greater sensitivity. 2. Soft tissue ulcer on the plantar surface of the great toe. Radiation Dose CTDIVOL = (mGy): DLP = 238.45 (mGy-cm)
[2020-08-04 19:25] VITALS: PULSE 82
[2020-08-04 19:53] LABS: Basophils % 0.2 %; Eosinophils # 0.1 10^3/uL (0.0-0.8); Eosinophils % 1.5 %; Hematocrit 42.9 % (42.0-52.0); Hemoglobin 14.1 g/dL (11.7-16.6); Lymphocytes # 0.8 10^3/uL (0.8-4.8); Lymphocytes % 14.4 %; Mean Corpuscular HGB Conc 32.9 g/dL (30.0-36.0); Mean Corpuscular Hemoglobin 31.5 pg (28.0-34.0); Mean Corpuscular Volume 95.8 fL (80-94); Monocytes # 0.6 10^3/uL (0.2-0.9); Neutrophils # 4.25 10^3/uL (1.8-7.7); Neutrophils % 72.7 %; Nucleated Red Blood Cells % 0 %; Platelet Count 144 10^3/cmm (130-400); Red Blood Count 4.48 10^6/uL (4.1-5.3); Red Cell Distribution Width 12.8 % (12.1-15.1); White Blood Count 5.8 10^3/uL (4.0-10.0)
[2020-08-04 20:07] LABS: Alanine Aminotransferase 15 U/L (0-41); Albumin Level 3.6 g/dL (3.5-5.2); Alkaline Phosphatase 88 IU/L (40-130); Blood Urea Nitrogen 21 mg/dL (8-23); Calcium 8.7 mg/dL (8.5-10.5); Carbon Dioxide 26 mmol/L (22-29); Chloride 99 mmol/L (98-107); Globulin 2.9 g/dL (1.3-4.6); Glucose 135 mg/dL (65-115); Osmolality Calculated 283 mOsm/kg (285-295); Sodium 134 mmol/L (136-145); Total Bilirubin 0.5 mg/dL (0.15-1.2); Total Protein 6.5 g/dL (6.6-8.7)
[2020-08-04 20:08] LABS: Anion Gap 13.6 (5-19); Aspartate Amino Transferase 21 U/L (0-40); Potassium 4.6 mmol/L (3.5-5.1)
[2020-08-04 20:40] LABS: Erythrocyte Sedimentation Rate 16 mm/hr (0-10)
[2020-08-04 21:41] VITALS: BP 153/91; PULSE 78; RESP 18; O2SAT 95
== END 2020-08-04 21:41 | disposition home or self-care (01) ==
PROVIDERS: Emergency Provider Family Medicine; PCP Family Medicine
DX: L97.511 Non-pressure chronic ulcer of other part of right foot limited to breakdown of skin (principal); L08.89 Other specified local infections of the skin and subcutaneous tissue; Z87.891 Personal history of nicotine dependence
CPT/HCPCS: 12345; 73700; 80053; 85025; 85651; 86140; 96365; 99282; 99283; J0690

== ENCOUNTER → 2020-08-18 14:41 | Outpatient (BNVA) | payer MEDICARE, OTHER, SELFPAY | PROVIDERS: PCP Family Medicine; Visit Provider Podiatrist Foot & Ankle Surgery | DX: M19.071 Primary osteoarthritis, right ankle and foot (principal); M79.671 Pain in right foot | CPT/HCPCS: 73630 ==

== ENCOUNTER 2020-12-10 08:27 | Outpatient (CLI) | payer MEDICARE, OTHER, SELFPAY ==
--- NOTE | 2020-12-10 08:52 | CT_ITS ---
WS: [id number] CT CHEST WITH INTRAVENOUS CONTRAST HISTORY: MULTIPLE LUNG NODULES TECHNIQUE: Contiguous 5 mm axial imaging performed on the thorax. Coronal and sagittal reformats are submitted. All CT scans at [facility] use at least one of these dose optimization techniq ues: automated exposure control; mA and/or kV adjustment per patient size (includes targeted exams wh ere dose is matched to clinical indication); or iterative reconstruction. CONTRAST: Omnipaque 300; 95 mL IV. DLP: 809.49 mGycm COMPARISON: 11/26/2019 and 11/20/2018 Lungs and central airway: Moderate pulmonary hyperexpansion from emphysema. Numerous bilateral subcen timeter pulmonary nodules are identified. Some of these are micronodules. The largest measures 5 mm i n the LEFT lower lobe adjacent to the fissure. No new or increasing nodule. No pneumonia. Pleura: Normal. No pleural effusion. Heart and pericardium: Normal size heart with no pericardial effusion. Mediastinum and oriana: Enlarged mediastinal and hilar lymph nodes. These were probably present also on the prior examinations but not as well-visualized without IV contrast. Largest nodule in the RIGHT i nfrahilar region measures 15 mm in diameter. Increased soft tissue surrounding the LEFT hilum measuri ng up to 10 mm. Vessels: Mild atherosclerosis aorta. No aneurysm. Chest wall and lower neck: No soft tissue masses. Upper abdomen: Suprarenal atherosclerosis aorta. No adrenal mass. Visualized liver is normal. There a re a few areas of decreased attenuation in the liver which were also present on the prior study with no increase in size. No adrenal mass. Osseous structures: Moderate thoracic spondylitic changes. No osteoblastic or osteolytic bone disease . CT/CT chest w con* [id number] IMPRESSION: 1. Long-term stability, greater than 2 years, bilateral pulmonary nodules. No additional workup of the nodules recommended. 2. On today's examination there are bilateral enlarged lymph nodes identified. The largest at the RIGHT infrahilar location with a diameter 15 mm. These lymp h nodes may have been present on prior studies but not seen because of noncontr ast evaluation. Suggest [address] follow-up to document stability. Follow-up c hest CT will need to be performed with IV contrast to better define the hilar s tructures. 3. Chronic emphysema.
[2020-12-10 09:15] LABS: Blood Urea Nitrogen 14 mg/dL (8-23)
[2020-12-10] MEDS: iohexol 300 mg/mL 100 mL Btl IV (09:22)
== END 2020-12-10 08:28 | disposition home or self-care (01) ==
PROVIDERS: PCP Family Medicine; Visit Provider Family Medicine
DX: R91.8 Other nonspecific abnormal finding of lung field (principal); J43.9 Emphysema, unspecified; R59.1 Generalized enlarged lymph nodes
CPT/HCPCS: 71260; 82565; 84520; Q9967

== ENCOUNTER 2021-03-17 08:35 | Emergency (ER) | payer MEDICARE, OTHER, SELFPAY ==
--- NOTE | 2021-03-17 | CTR_ITS ---
[facility] Final Radiology Report Call: [phone] Name: ELI LUTHER Age: 80Years M Date: 03/17/2021 SSN: [id number] : 1940 Study: CT ABDOMEN/PELVIS W Requesting Physician: CELE BOYD Images: 265 Provided Clinical History: rule out SBO Procedure Accession CTDI Vol (mGy) DLP (mGy-cm) CT ABDOMEN/PELVIS W [id number] 1758.13 PROCEDURE INFORMATION: Exam: CT Abdomen And Pelvis With Contrast Exam date and time: 03/17/2021 9:15 AM Age: 80 years old Clinical indication: Pain and injury or trauma; Blunt; Generalized; Abdominal pain; Injury date: 2 days ago; Injury details: Fall 2days ago left rib pain abd pain; Additional info: Rule out sbo TECHNIQUE: Imaging protocol: Computed tomography of the abdomen and pelvis with contrast. Total images: 265 Radiation optimization: All CT scans at this facility use at least one of these dose optimization techniques: automated exposure control; mA and/or kV adjustment per patient size (includes targeted exams where dose is matched to clinical indication); or iterative reconstruction. Contrast material: OMNI 300; Contrast volume: 95 ml; Contrast route: INTRAVENOUS (IV); COMPARISON: CT abdomen pelvis w con* [id number] 08/20/2018 8:57 AM RADIATION DOSE METRICS: Total DLP (mGy-cm): 1758.13 FINDINGS: Liver: 10 mm largest cyst noted in a liver that has multiple simple liver cysts. No further evaluation required. Gallbladder and bile ducts: Normal. No calcified stones. No ductal dilation. Pancreas: Normal. No ductal dilation. Spleen: Normal. No splenomegaly. Adrenal glands: Normal. No mass. Kidneys and ureters: 2.4 cm largest cyst noted in a right kidney that has multiple simple renal cysts. No further evaluation required. Stomach and bowel: Unremarkable. No obstruction. No mucosal thickening. Appendix: No evidence of appendicitis. Intraperitoneal space: Unremarkable. No free air. No significant fluid collection. Vasculature: Moderate atherosclerotic disease is evident. A retroaortic left renal vein is incidentally noted. Lymph nodes: Unremarkable. No enlarged lymph nodes. Urinary bladder: Unremarkable as visualized. Reproductive: Prostatomegaly noted. Bones/joints: Left 7th and 8th rib fractures noted. Facet joint degenerative changes are present. Multilevel degenerative disc disease is noted with vacuum phenomenon. Osteophytes are noted extending from the vertebrae. No acute spinal pathology is detected. Soft tissues: Small amount of fatty stranding noted in the left inferolateral chest wall felt to represent small amount of hemorrhage/bruising. IMPRESSION: 1. Left 7th and 8th rib fractures noted. 2. Small amount of fatty stranding noted in the left inferolateral chest wall felt to represent small amount of hemorrhage/bruising. COMMENTS: Consistent with the [employer]'s Incidental Findings Committee white paper (J Am Hamzah Radiol 2018): Any incidental renal lesion less than 1 cm or classified as too small to characterize, or any incidental cystic renal lesion characterized as simple- appearing, is likely benign. No follow-up imaging is recommended for these lesions per consensus recommendations based on imaging criteria. Thank you for allowing us to participate in the care of your patient. Dictated and Authenticated by: Jovani Johnson MD 03/17/2021 12:07 PM Central Time ([place] & [place]) KARINA
--- NOTE | 2021-03-17 | CTR_ITS ---
[facility] Final Radiology Report Call: [phone] Name: ELI LUTHER Age: 80Years M Date: 03/17/2021 SSN: [id number] : 1940 Study: CT CHEST WO Requesting Physician: CELE BOYD Images: 274 Provided Clinical History: lung nodules, patient needs it for outpatient followup Procedure Accession CTDI Vol (mGy) DLP (mGy-cm) CT CHEST WO [id number] 807.03 PROCEDURE INFORMATION: Exam: CT Chest Without Contrast; Diagnostic Exam date and time: 03/17/2021 9:30 AM Age: 80 years old Clinical indication: Pain and injury or trauma; Blunt trauma (contusions or hematomas); Chest wall pain and left-sided; Injury date: 2 days ago; Injury details: Fall 2days ago left rib pain abd pain; Additional info: Lung nodules, patient needs it for outpatient followup TECHNIQUE: Imaging protocol: Diagnostic computed tomography of the chest without contrast. Total images: 274 Radiation optimization: All CT scans at this facility use at least one of these dose optimization techniques: automated exposure control; mA and/or kV adjustment per patient size (includes targeted exams where dose is matched to clinical indication); or iterative reconstruction. COMPARISON: CT chest w con* [id number] 12/10/2020 9:20 AM RADIATION DOSE METRICS: Total DLP (mGy-cm): 807.03 FINDINGS: Lungs: Bleb noted at the left apex unchanged. 3 mm nodule laterally in the superior segment of the left lower lobe unchanged. 2-3 mm nodule laterally in the left upper lobe unchanged. 4 mm nodule medially in the right upper lobe unchanged. 4 mm nodule adjacent to the oblique fissure in the superior segment of the left lower lobe unchanged. Pleural spaces: Unremarkable. No pneumothorax. No pleural effusion. Heart: Unremarkable. No cardiomegaly. No pericardial effusion. Aorta: Moderate atherosclerotic disease is evident. Lymph nodes: Unremarkable. No enlarged lymph nodes. Bones/joints: Left 7th and 8th lateral rib fractures. Soft tissues: Soft tissue anchor in the right humeral head. Soft tissue anchor in the left humeral head. IMPRESSION: 1. Multiple small pulmonary nodules bilaterally unchanged. No new nodules detected.Impression. Consider followup twelve-month CT chest to further define. (Jeaneth et al., Fleischner Society, 2017) 2. Left 7th and 8th lateral rib fractures. Thank you for allowing us to participate in the care of your patient. Dictated and Authenticated by: Jovani Johnson MD 03/17/2021 12:04 PM Central Time ([place] & [place]) KARINA
[2021-03-17 09:01] VITALS: BMI 32.3
[2021-03-17 09:09] VITALS: BP 162/61; PULSE 83; RESP 26; TEMP 37.1; O2SAT 93
--- NOTE | 2021-03-17 09:30 | W.ED.GENADLT ---
HPI - General Adult General: Chief complaint: Abdominal Pain Stated complaint: severe abd pain Time Seen by Provider: 03/17/21 08:41 History of Present Illness: HPI narrative: Patient is a 80M w/ hx of constipation constipation, prior recurrent appendicitis >20 years ago presenting to the emergency room for evaluation of inability to pass stool for the last 5 days. Patient's reports using Colace and pineapple juice without any improvement in symptoms. Patient denies any abdominal pain, nausea/vomiting, or urinary symptoms. Per , patient had fever to 102 by mouth on Monday and 101 on Monday. Patient denies any respiratory symptoms including cough/runny nose/sore throat or shortness of breath. Patient went to [facility] on Monday shortly after he had an episode of fall. Patient has 8th and 9th rib fractures for which he is only on Tylenol. Endorses L lateral rib pain from the fall. Onset: 5 days ago constipation Duration: 5 days Location:home Severity:moderate Review of Systems Narrative: Constitutional: +fever, +chills. HEENT: No vision changes CV: + L sided chest pain, no palpitations PULM: no cough, no dyspnea. GI: No abdominal pain, no N/V/D. +constipation/decreased stooling : No dysuria MSKEL: No muscle pain SKIN: No new rashes, no lesions. NEURO: No headache, no focal weakness. HEME: No visible bruises PSYCH: Normal mood PFS ED PFSH: Medical History (Updated 03/17/21 @ 12:52 by Pina Cowart MD) BPH (benign prostatic hyperplasia) Hallux rigidus of both feet Surgical History H/O eye surgery Family History Father Cancer Brother Diabetes Denies family history of CAD (coronary artery disease) Clotting disorder Dementia Hyperlipidemia Psychiatric illness Chronic kidney disease (CKD) Suicide Anesthesia complication Bleeding disorder Family history of premature coronary artery disease Lung disease Hypertension Stroke Social History Quit status (tobacco): has quit using tobacco Second hand smoke exposure: Yes Smoking risk assessment/counseling performed?: Yes Alcohol intake: never Desire information about alcohol rehabilitation?: No Counseling given: No Desire information about substance/drug rehabilitation?: No Counseling given: No Adopted: No Caregiver/support person: No Lives independently: Yes Household members: spouse Housing: House Marital status: Current occupational status: retired Current occupational exposures/hazards: No History of recent travel: No Current gender identity: Male Physical Exam Narrative: EXAM NARRATIVE: Head: Atraumatic Eyes: PERRL, conjunctiva without injection ENT: Mucous membrane moist NECK: Supple, ROM intact LUNGS: LCTAB, no crackles/rhonchi CV: RRR ABDOMEN: Soft, nontender in all quadrants EXTREMITY: Normal ROM SKIN: No rash or erythema NEURO: Awake and alert, no focal motor deficits PSYCH: Normal mood and affect Course Vital Signs: Vital signs: Vital Signs Temperature 98.7 F 03/17/21 09:09 Pulse Rate 97 03/17/21 13:16 Respiratory Rate 12 03/17/21 13:16 Blood Pressure 112/89 03/17/21 13:16 Pulse Oximetry 92 03/17/21 13:16 MDM - General Adult MDM Narrative: Medical decision making narrative: 80-year-old male presenting to the emergency room with concerns for constipation decreased stooling. Lab work-up showed white count 6.1. CT abdomen pelvis not showing signs of acute focal findings. I have ordered a CT chest per patient's request for following up with nodules At this time, I have instructed the patient to continue MiraLAX for 6 weeks. Patient is aware of the importance of taking prune juice. No other acute suspicion for other acute intra-abdominal pathologies. Rx miralax and plum juice PRN constipation Disposition: Discharge. Patient counseled regarding diagnostic impression, treatment plan. Patient given ED strict return precautions to return for continuation, worsening, or development of new symptoms. Instructed to f/u w/ PCP regarding symptoms today. Patient verbalized understanding. Lab Data: Labs: Lab Results 03/17/21 03/17/21 03/17/21 09:20 09:20 09:20 WBC 6.1 10^3/uL 10^3/ uL (4.0-10.0) RBC 4.25 10^6/uL 10^6 /uL (4.1-5.3) Hgb 13.2 g/dL g/dL (11.7-16.6) Hct 40.5 % L % (42.0-52.0) MCV 95.3 fl H fl (80-94) MCH 31.1 pg pg (28.0-34.0) MCHC 32.6 g/dL g/dL (30.0-36.0) RDW 12.3 % % (12.1-15.1) Plt Count 230 10^3/cmm 10^3 /cmm (130-400) MPV 11.0 fL H fL (7.4-10.4) Neut % (Auto) 82.1 % % Lymph % (Auto) 6.3 % % [place] % (Auto) 10.6 % % Eos % (Auto) 0.3 % % Baso % (Auto) 0.2 % % Neut # (Auto) 4.97 10^3/uL 10^3 /uL (1.8-7.7) Lymph # (Auto) 0.4 10^3/uL L 10^ 3/uL (0.8-4.8) Dup[place] # (Auto) 0.6 10^3/uL 10^3/ uL (0.2-0.9) Eos # (Auto) 0.0 10^3/uL 10^3/ uL (0.0-0.8) Baso # (Auto) 0.0 10^3/uL 10^3/ uL (0.0-0.1) Nucleated RBC % (a uto) 0 % % Nucleated RBCs # 0.0 /100WBC /100W BC PT 14.90 SECONDS SEC ONDS (12.1-14.9) INR 1.14 (0.8-1.2) APTT 37.4 SECONDS H SE CONDS (23.9-36.7) Sodium 134 mmol/L L mmol /L (136-145) Potassium 4.2 mmol/L mmol/L (3.5-5.1) Chloride 96 mmol/L L mmol/ L (98-107) Carbon Dioxide 29 mmol/L mmol/L (22-29) Anion Gap 13.2 (5-19) BUN 13 mg/dL mg/dL (8-23) Creatinine 0.7 mg/dL mg/dL (0.7-1.2) GFR Calculation Not Reportable Glucose 105 mg/dL mg/dL (65-115) Calculated Osmolal ity 278 mOsm/kg L mOs m/kg (285-295) Calcium 8.9 mg/dL mg/dL (8.5-10.5) Total Bilirubin 0.5 mg/dL mg/dL (0.15-1.2) AST 18 U/L U/L (0-40) ALT 17 U/L U/L (0-41) Alkaline Phosphata se 107 IU/L IU/L (40-130) Total Protein 6.8 g/dL g/dL (6.6-8.7) Albumin 3.7 g/dL g/dL (3.5-5.2) Globulin 3.1 g/dL g/dL (1.3-4.6) Lipase 18 U/L U/L (13-60) Urine Color Urine Appearance Urine pH Ur Specific Gravit y Urine Protein Urine Glucose (UA) Urine Ketones Urine Blood Urine Nitrate Urine Bilirubin Urine Urobilinogen Ur Leukocyte Dawn ase Urine RBC Urine WBC Ur Squamous Epith Cells Amorphous Sediment Urine Bacteria 03/17/21 10:07 WBC RBC Hgb Hct MCV MCH MCHC RDW Plt Count MPV Neut % (Auto) Lymph % (Auto) Dup[place] % (Auto) Eos % (Auto) Baso % (Auto) Neut # (Auto) Lymph # (Auto) [place] # (Auto) Eos # (Auto) Baso # (Auto) Nucleated RBC % (a uto) Nucleated RBCs # PT INR APTT Sodium Potassium Chloride Carbon Dioxide Anion Gap BUN Creatinine GFR Calculation Glucose Calculated Osmolal ity Calcium Total Bilirubin AST ALT Alkaline Phosphata se Total Protein Albumin Globulin Lipase Urine Color Yellow (Yellow) Urine Appearance Clear (CLEAR) Urine pH 6 (5-7) Ur Specific Gravit y 1.010 (1.005-1.030) Urine Protein Neg (Negative) Urine Glucose (UA) Norm (Normal) Urine Ketones 1+ H (Negative) Urine Blood 2+ H (Negative) Urine Nitrate Negative (Negative) Urine Bilirubin Neg (Negative) Urine Urobilinogen Norm mg/dL mg/dL (Negative) Ur Leukocyte Dawn ase Negative (Negative) Urine RBC 0-4 /hpf H /hpf (0-2) Urine WBC None /hpf /hpf (0-5) Ur Squamous Epith Cells 0-4 /hpf H /hpf (0-5) Amorphous Sediment Not Reportable Urine Bacteria Trace /hpf /hpf (NONE) Imaging Data^: Other Imaging: Radiologist's impression: [id number] [place], [place] [address]UV Scan ReportSigned Patient: Kendall Lutherit #: [id number]: 1940cct#:[id number]/Sex: 80 / MADM Date: 03/17/21Loc: ERRoom/Bed:Attending Dr: Ordering Provider/Ordering MD: Pina Cowart MD Date of Service: 03/17/21 Procedure(s): CT chest wo con [id number] Accession Number(s): [id number] Report Number: [id number] [facility] Final Radiology Report Call: [phone] Name: KENDALL LUTHER Age: 80Years M Date: 03/17/2021 SSN: [id number] : 1940 Study: CT CHEST WO Requesting Physician: PINA COWART Images: 274 Provided Clinical History: lung nodules, patient needs it for outpatient followup Procedure Accession CTDI Vol (mGy) DLP (mGy-cm) CT CHEST WO [id number] 807.03 PROCEDURE INFORMATION: Exam: CT Chest Without Contrast; Diagnostic Exam date and time: 03/17/2021 9:30 AM Age: 80 years old Clinical indication: Pain and injury or trauma; Blunt trauma (contusions or hematomas); Chest wall pain and left-sided; Injury date: 2 days ago; Injury details: Fall 2days ago left rib pain abd pain; Additional info: Lung nodules, patient needs it for outpatient followup TECHNIQUE: Imaging protocol: Diagnostic computed tomography of the chest without contrast. Total images: 274 Radiation optimization: All CT scans at this facility use at least one of these dose optimization techniques: automated exposure control; mA and/or kV adjustment per patient size (includes targeted exams where dose is matched to clinical indication); or iterative reconstruction. COMPARISON: CT chest w con* [id number] 12/10/2020 9:20 AM RADIATION DOSE METRICS: Total DLP (mGy-cm): 807.03 FINDINGS: Lungs: Bleb noted at the left apex unchanged. 3 mm nodule laterally in the superior segment of the left lower lobe unchanged. 2-3 mm nodule laterally in the left upper lobe unchanged. 4 mm nodule medially in the right upper lobe unchanged. 4 mm nodule adjacent to the oblique fissure in the superior segment of the left lower lobe unchanged. Pleural spaces: Unremarkable. No pneumothorax. No pleural effusion. Heart: Unremarkable. No cardiomegaly. No pericardial effusion. Aorta: Moderate atherosclerotic disease is evident. Lymph nodes: Unremarkable. No enlarged lymph nodes. Bones/joints: Left 7th and 8th lateral rib fractures. Soft tissues: Soft tissue anchor in the right humeral head. Soft tissue anchor in the left humeral head. IMPRESSION: 1. Multiple small pulmonary nodules bilaterally unchanged. No new nodules detected.Impression. Consider followup twelve-month CT chest to further define. (Jeaneth et al., Fleischner Society, 2017) 2. Left 7th and 8th lateral rib fractures. Thank you for allowing us to participate in the care of your patient. Dictated and Authenticated by: Jovani Johnson MD 03/17/2021 12:04 PM Central Time ( & [place]) Dictated By:Jovani Johnson MDSigned By:Jovani Johnson MDSigned Date/Time:03/17/21 1229DD/ 1204 [facility] CenterYnc[facility] [place] [id number] Scan ReportSigned Patient: Kendall Luther MUnit #: [id number]: 1940cct#:[id number]/Sex: 80 / MADM Date: 03/17/21Loc: ERRoom/Bed:Attending Dr: Ordering Provider/Ordering MD: Pina Cowart MD Date of Service: 03/17/21 Procedure(s): CT abdomen pelvis w con* [id number] Accession Number(s): [id number] Report Number: [id number] [facility] Final Radiology Report Call: [phone] Name: KENDALL LUTHER Age: 80Years M Date: 03/17/2021 SSN: [id number] : 1940 Study: CT ABDOMEN/PELVIS W Requesting Physician: PINA COWART Images: 265 Provided Clinical History: rule out SBO Procedure Accession CTDI Vol (mGy) DLP (mGy-cm) CT ABDOMEN/PELVIS W [id number] 1758.13 PROCEDURE INFORMATION: Exam: CT Abdomen And Pelvis With Contrast Exam date and time: 03/17/2021 9:15 AM Age: 80 years old Clinical indication: Pain and injury or trauma; Blunt; Generalized; Abdominal pain; Injury date: 2 days ago; Injury details: Fall 2days ago left rib pain abd pain; Additional info: Rule out sbo TECHNIQUE: Imaging protocol: Computed tomography of the abdomen and pelvis with contrast. Total images: 265 Radiation optimization: All CT scans at this facility use at least one of these dose optimization techniques: automated exposure control; mA and/or kV adjustment per patient size (includes targeted exams where dose is matched to clinical indication); or iterative reconstruction. Contrast material: OMNI 300; Contrast volume: 95 ml; Contrast route: INTRAVENOUS (IV); COMPARISON: CT abdomen pelvis w con* [id number] 08/20/2018 8:57 AM RADIATION DOSE METRICS: Total DLP (mGy-cm): 1758.13 FINDINGS: Liver: 10 mm largest cyst noted in a liver that has multiple simple liver cysts. No further evaluation required. Gallbladder and bile ducts: Normal. No calcified stones. No ductal dilation. Pancreas: Normal. No ductal dilation. Spleen: Normal. No splenomegaly. Adrenal glands: Normal. No mass. Kidneys and ureters: 2.4 cm largest cyst noted in a right kidney that has multiple simple renal cysts. No further evaluation required. Stomach and bowel: Unremarkable. No obstruction. No mucosal thickening. Appendix: No evidence of appendicitis. Intraperitoneal space: Unremarkable. No free air. No significant fluid collection. Vasculature: Moderate atherosclerotic disease is evident. A retroaortic left renal vein is incidentally noted. Lymph nodes: Unremarkable. No enlarged lymph nodes. Urinary bladder: Unremarkable as visualized. Reproductive: Prostatomegaly noted. Bones/joints: Left 7th and 8th rib fractures noted. Facet joint degenerative changes are present. Multilevel degenerative disc disease is noted with vacuum phenomenon. Osteophytes are noted extending from the vertebrae. No acute spinal pathology is detected. Soft tissues: Small amount of fatty stranding noted in the left inferolateral chest wall felt to represent small amount of hemorrhage/bruising. IMPRESSION: 1. Left 7th and 8th rib fractures noted. 2. Small amount of fatty stranding noted in the left inferolateral chest wall felt to represent small amount of hemorrhage/bruising. COMMENTS: Consistent with the [employer]'s Incidental Findings Committee white paper (J Am Hamzah Radiol 2018): Any incidental renal lesion less than 1 cm or classified as too small to characterize, or any incidental cystic renal lesion characterized as simple-appearing, is likely benign. No follow-up imaging is recommended for these lesions per consensus recommendations based on imaging criteria. Thank you for allowing us to participate in the care of your patient. Dictated and Authenticated by: Jovani Johnson MD 03/17/2021 12:07 PM Central Time ([place] & [place]) Dictated By:Jovani Johnson MDSigned By:Jovani Johnson MDSigned Date/Time:03/17/21 1231DD/ 1230 Discharge Plan Discharge Patient Disposition: Home Clinical Impression: Chest pain, Fracture of rib, Constipation Condition: Stable Prescriptions: New Miralax 17 gram/dose powder 8.5 g PO DAILY PRN (Reason: constipation) 28 Days Qty: 510 RF: 0 acetaminophen 500 mg tablet 500 mg PO Q6H PRN (Reason: pain) 10 Days Qty: 40 RF: 0 lidocaine 5 % adhesive patch,medicated 1 patch topical DAILY PRN (Reason: pain) 15 Days Qty: 15 RF: 0 No Action tamsulosin 0.4 mg capsule 0.4 mg PO DAILY@1000 RF: 0 triamcinolone acetonide 0.1 % cream 1 applic TOPICAL BID RF: 0 sennosides-docusate sodium [Lax Stool Softener With Senna] 8.6-50 mg tablet 1 tab-cap PO DAILY PRN (Reason: Constipation) RF: 0 magnesium 250 mg tablet 250 mg PO DAILY@1000 RF: 0 Men 50 Plus Multivitamin 300-600-300 mcg tablet 1 tab PO DAILY@1000 RF: 0 (DME) Sole Supports Qty: 1 RF: 0 (DME) carbon fiber See Rx Instructions .ROUTE .MEDSUPPLY Qty: 1 RF: 0 (DME) Gel toe sleeve, right hallux See Rx Instructions .Route .MEDSUPPLY Qty: 1 RF: 0 mupirocin 2 % ointment 1 applic TOPICAL BID 42 Days Qty: 22 RF: 1 folic acid 1 mg tablet 1 mg PO DAILY RF: 0 Tylenol 325 mg Tablet 325 - 650 mg PO QID PRN (Reason: fever/pain) RF: 0 Advil 200 mg Tablet 200 mg PO Q6H PRN (Reason: Pain) RF: 0 potassium 99 mg PO DAILY@1000 RF: 0 Discharge Orders: Discharge ED (Routine); Ordered 03/17/21 Ordered By: Pina Cowart Referrals: Robert Floyd MD [Primary Care Provider] - Discharge Diet: Advance as tolerated Discharge Activity: Resume usual activity Patient Instructions: Constipation (ED) Activity Restrictions/Additional Instructions: Please follow-up with your primary care doctor in the next 24 to 48 hours. Please take MiraLAX daily for the next 4 weeks. Come back to the emergency room you have any signs of fever/chills, nausea/vomiting, or any acute complaints Coding Level of Care Code ED Jewelry Polisher for Tanisha Begum
[2021-03-17 09:46] LABS: Basophils % 0.2 %; Eosinophils % 0.3 %; Hematocrit 40.5 % (42.0-52.0); Hemoglobin 13.2 g/dL (11.7-16.6); Lymphocytes # 0.4 10^3/uL (0.8-4.8); Lymphocytes % 6.3 %; Mean Corpuscular HGB Conc 32.6 g/dL (30.0-36.0); Mean Corpuscular Hemoglobin 31.1 pg (28.0-34.0); Mean Corpuscular Volume 95.3 fl (80-94); Monocytes # 0.6 10^3/uL (0.2-0.9); Monocytes % 10.6 %; Neutrophils # 4.97 10^3/uL (1.8-7.7); Neutrophils % 82.1 %; Nucleated Red Blood Cells % 0 %; Platelet Count 230 10^3/cmm (130-400); Red Blood Count 4.25 10^6/uL (4.1-5.3); Red Cell Distribution Width 12.3 % (12.1-15.1); White Blood Count 6.1 10^3/uL (4.0-10.0)
[2021-03-17 09:52] LABS: INR 1.14 (0.8-1.2)
[2021-03-17 09:53] LABS: Partial Thromboplastin Time 37.4 SECONDS (23.9-36.7)
[2021-03-17 10:04] LABS: Alanine Aminotransferase 17 U/L (0-41); Albumin Level 3.7 g/dL (3.5-5.2); Alkaline Phosphatase 107 IU/L (40-130); Anion Gap 13.2 (5-19); Aspartate Amino Transferase 18 U/L (0-40); Blood Urea Nitrogen 13 mg/dL (8-23); Calcium 8.9 mg/dL (8.5-10.5); Carbon Dioxide 29 mmol/L (22-29); Chloride 96 mmol/L (98-107); Globulin 3.1 g/dL (1.3-4.6); Glucose 105 mg/dL (65-115); Lipase 18 U/L (13-60); Osmolality Calculated 278 mOsm/kg (285-295); Potassium 4.2 mmol/L (3.5-5.1); Sodium 134 mmol/L (136-145); Total Bilirubin 0.5 mg/dL (0.15-1.2); Total Protein 6.8 g/dL (6.6-8.7)
[2021-03-17 10:09] VITALS: BP 150/110; PULSE 84; RESP 12; O2SAT 93
[2021-03-17 10:51] LABS: Add Urine Culture? No; Add Urine Microscopic? YES; Bacteria Urine TRACE /hpf; Bilirubin Urine Neg (Negative); Blood Urine 2+ (Negative); Glucose Urine UA Norm (Normal); Ketones Urine 1+ (Negative); Leukocyte Esterase Urine Negative (Negative); Nitrate Urine Negative (Negative); Protein Urine Neg (Negative); RBC Urine 0-4 /hpf (0-2); Squamous Epithelial Cell Urine 0-4 /hpf (0-5); Urine Appearance Clear (CLEAR); Urine Color Yellow (Yellow); Urobilinogen Urine Norm (Negative); pH Urine 6 (5-7)
[2021-03-17 11:00] VITALS: BP 144/86; PULSE 85; RESP 14; O2SAT 93
[2021-03-17] MEDS: iohexol 300 mg/mL 100 mL Btl IV (11:17)
[2021-03-17 12:00] VITALS: BP 134/68; PULSE 89; RESP 20; O2SAT 92
[2021-03-17 13:16] VITALS: BP 112/89; PULSE 97; RESP 12; O2SAT 92
--- NOTE | 2021-03-18 13:18 | DCPLANNER ---
pharmacist manager had message to speak with patient about getting established with a primary care physician. pharmacist manager called and spoke with patient. He stated that he has a primary care physician, and does not need help with an appointment at this time.
== END 2021-03-17 13:17 | disposition home or self-care (01) ==
PROVIDERS: Emergency Provider Emergency Medicine; PCP Family Medicine
DX: K59.00 Constipation, unspecified (principal); R07.9 Chest pain, unspecified; S22.42XA Multiple fractures of ribs, left side, initial encounter for closed fracture; W19.XXXA Unspecified fall, initial encounter; Z87.891 Personal history of nicotine dependence
CPT/HCPCS: 71250; 74177; 80053; 81001; 83690; 85025; 85610; 85730; 99283; Q9967

== ENCOUNTER → 2021-09-13 08:47 | Outpatient (BNVA) | payer MEDICARE, OTHER, SELFPAY | PROVIDERS: PCP Family Medicine; Referring Provider Family Medicine; Visit Provider Specialist | DX: M89.8X1 Other specified disorders of bone, shoulder (principal) | CPT/HCPCS: 73000 ==

== ENCOUNTER → 2021-10-20 08:29 | Outpatient (BNVA) | payer MEDICARE, OTHER, SELFPAY | PROVIDERS: PCP Family Medicine; Visit Provider Specialist | DX: X58.XXXA Exposure to other specified factors, initial encounter (principal); Z87.891 Personal history of nicotine dependence; S42.002A Fracture of unspecified part of left clavicle, initial encounter for closed fracture | CPT/HCPCS: 73000; 99213 ==

== ENCOUNTER 2021-10-25 09:41 | Outpatient (CLI) | payer MEDICARE, OTHER, SELFPAY ==
--- NOTE | 2021-10-25 09:48 | CT_ITS ---
WS: [id number] CT CHEST TECHNIQUE: Contrast enhanced CT of the chest with coronal and sagittal reformatted images. CLINICAL INFORMATION: LYMPHADENOPATHY,HILAR COMPARISON: March 17, 2021 December 10, 2020 DLP: 841.[address] scans at [facility] use at least one of these dose optimization techniques: automated e xposure control; mA and/or kV adjustment per patient size (includes targeted exams where dose is matc hed to clinical indication); or iterative reconstruction. FINDINGS: Heterogeneously enhancing conglomeration of lymph nodes/mass in the LEFT subclavicular nicolasa on in the area of concern. This measures approximately 3.4 x 3.3 CM. Associated thickening of the LEF T platysma. Skin thickening deep to the BB marker. Recommend CT neck for further evaluation. Destructive soft tissue mass involving the LEFT 8th rib with chest wall mass extending to the pleura. Destruction of the 8th rib. This also involves the adjacent 9th rib. 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 This appears new from p revious. This appears to extend into the upper lumbar spine. This can be further evaluated with bone scan. Multiple subcentimeter pulmonary nodules are again visualized largest measuring approximately 4 mm in the LEFT lower lobe. No new suspicious pulmonary parenchymal opacities. Aortic calcification. Torre ry calcification. A few prominent hilar lymph nodes unchanged. No progressed lymphadenopathy. Normal thyroid gland. No axillary lymphadenopathy. Adrenal glands are normal. Mild diffuse fatty infiltration the liver. A few low-attenuation lesions i n both hepatic lobes likely hepatic cysts some are too small to characterize. Normal GE junction. Fat ty atrophy of the pancreas. Splenic artery calcification. CT/CT chest w con* [id number] IMPRESSION: 1. In the LEFT neck in the supra clavicular region is a LEFT neck mass/lymph n ode conglomeration measuring 3.3 x 3.4 cm compatible with neoplasm or metastati c disease. Associated skin thickening in this area. Recommend contrast-enhanced CT neck for full evaluation. 2. Destructive soft tissue mass involving the LEFT dorsal chest wall with pleu ral thickening. This results in destruction of the LEFT 8th rib. This also invo lves the LEFT 9th rib. Soft tissue mass measures approximately 3.1 x 3.6 x 5.9 CM. 3. 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 Multiple lytic and blastic lesions are visualized appear new from previous. This can be further evaluated with bone scan.
[2021-10-25] MEDS: iohexol 350 mg/mL 100 mL Btl IV (10:58)
[2021-10-25 10:59] LABS: Blood Urea Nitrogen 17 mg/dL (8-23)
== END 2021-10-25 09:42 | disposition home or self-care (01) ==
LOC: RAD 09:42
PROVIDERS: PCP Family Medicine; Visit Provider Family Medicine
DX: R59.0 Localized enlarged lymph nodes (principal)
CPT/HCPCS: 71260; 82565; 84520

== ENCOUNTER → 2021-10-27 07:46 | Outpatient (BNVA) | payer MEDICARE, OTHER, SELFPAY | PROVIDERS: PCP Family Medicine; Visit Provider Podiatrist Foot & Ankle Surgery | DX: L84 Corns and callosities (principal); G60.9 Hereditary and idiopathic neuropathy, unspecified; Q82.8 Other specified congenital malformations of skin; L97.512 Non-pressure chronic ulcer of other part of right foot with fat layer exposed; M20.21 Hallux rigidus, right foot; M20.22 Hallux rigidus, left foot; Z87.891 Personal history of nicotine dependence | CPT/HCPCS: 99214 ==

== ENCOUNTER → 2021-12-08 13:14 | Outpatient (BNVA) | payer MEDICARE, OTHER, SELFPAY | PROVIDERS: PCP Family Medicine; Visit Provider Nurse Practitioner Family | DX: I96 Gangrene, not elsewhere classified (principal); L89.312 Pressure ulcer of right buttock, stage 2 | CPT/HCPCS: 11042; 99213; A6212 ==

== ENCOUNTER 2021-12-09 15:53 | Inpatient (IN) | payer OTHER, SELFPAY ==
[2021-12-09 16:23] VITALS: BP 162/62; PULSE 81; RESP 17; TEMP 37.4; O2SAT 95
--- NOTE | 2021-12-09 16:23 | ECG_ITS ---
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 Measurements Intervals Warren Rate: 83 P: 50 CO: 188 QRS: -28 QRSD: 118 T: 0 QT: 347 QTc: 409 Interpretive Statements SINUS RHYTHM LOW QRS VOLTAGE IN PRECORDIAL LEADS [QRS DEFLECTION < 1.0 mV IN CHEST LEADS] POSSIBLE ANTERIOR MYOCARDIAL INFARCTION , OF INDETERMINATE AGE [30 ms Q WAVE IN V3/V4, OR R < 0.2 mV IN V4] Compared to ECG 04/16/2020 10:17:14 Myocardial infarct finding now present Left-axis deviation no longer present Electronically Signed On 12-10-2021 5:48:31 CDT by Albaro Salcedo M.D. [id number]
--- NOTE | 2021-12-09 16:29 | PM.HP ---
Providers/Chief Complaint Admitting Physician: Toby Puentes MD Primary Care Provider: Robert Floyd MD Chief Complaint: lymphoma History of Present Illness Kendall Camejo is a 81 year old male with past medical history of diffuse B-cell lymphoma with bony metastasis, chronic decubitus ulcer, pathological fracture of left clavicle who was admitted as a direct admit from Dr. Dickey's office because of generalized weakness, hypercalcemia. Patient received pamidronate and 1 L of fluid bolus at oncology office. Patient tells me that he has not had a bowel movement in the last 1 to 2 weeks though he is passing flatus and mucus. Denies any nausea vomiting, headache. States he is getting progressively weak in his legs. Usually is able to walk around with a cane but recently has been getting more more difficult to do the same. Denies any headache. He states he has been having shaking in the body which has been going on for quite some time has gotten worse recently which is being followed up by his primary care provider. Of note, patient has been worked up for possible chemotherapy for diffuse B-cell lymphoma and is in works for getting a port placement with surgical team most likely on coming . Review of Systems General: Reports: 10 or more systems reviewed and unremarkable except in HPI and below Const: Denies: fever(s), chills, body aches, change in appetite, change in weight, malaise, night sweats, diaphoresis, change in sleep pattern, daytime sleepiness or snoring Eyes: Denies: change in vision, blurry vision, photophobia, eye discomfort or eye discharge ENMT: Denies: throat pain, enlarged tonsils, hoarseness, mouth pain, oral sores, dry mouth, tinnitus, nasal congestion or post nasal drip Card: Denies: chest pain, palpitations, irregular heart rhythm, edema, swelling of feet/ankles, lightheadedness, syncope, pre-syncope, dyspnea on exertion, orthopnea, leg pain with exertion or acrocyanosis Resp: Denies: dyspnea, productive cough, non-productive cough, wheezing, stridor, pain on inspiration, change in phlegm color, hemoptysis or chest congestion GI: Denies: abdominal pain, nausea, vomiting, hematemesis, coffee ground emesis, dysphagia, heartburn, diarrhea, constipation, bloating, GI cramping, change in bowel habits, pain on defecation, hematochezia or melena : Denies: flank pain, difficulty urinating, dysuria, urinary frequency, urinary urgency, urinary hesitancy, urinary dribbling, difficulty starting urination, change in urine stream, nocturia or hematuria Musc: Denies: neck pain, back pain, extremity pain, joint pain, joint swelling, joint redness, joint stiffness or limited range of motion Neuro: Denies: headache(s), numbness in extremities, weakness in extremities, sensory changes, lack of coordination, difficulty walking, frequent falls, dizziness, vertigo, confusion, Slurred speech present, difficulty communicating thoughts or seizure-like activity Psych: Denies: anxiety, depression, mood swings, panic attacks, hopelessness or irritability Endo: Denies: polyuria, polydipsia, tired all the time, cold intolerance, excessive sweating, flushing or heat intolerance Mauricio/Lymph: Denies: easy bruising or easy bleeding All/Imm: Denies: tongue swelling, facial swelling or acute wheezing Medications/Allergies Home Medications Medication Instructions Recorded Confirmed Last Taken Type tamsulosin 0.4 mg capsule 0.4 mg PO QPM 07/01/19 12/10/21 08/04/20 History Sole Supports #1 ea 07/15/19 12/10/21 Unknown Rx carbon fiber #1 each 11/27/19 12/10/21 Unknown Rx Gel toe sleeve, right hallux #1 ea 12/12/19 12/10/21 Unknown Rx folic acid 1 mg tablet 1 mg PO QPM 02/16/21 12/10/21 Unknown History acetaminophen 500 mg tablet 500 mg PO Q4H PRN 12/10/21 12/10/21 Unknown History docusate sodium 100 mg capsule 100 - 200 mg PO QPM PRN 12/10/21 12/10/21 Unknown History (Colace) honey 100 % topical gel ([place] 1 ea TOPICAL DAILY 12/10/21 12/10/21 Unknown History Honey) ibuprofen-diphenhydramine citrate 1 tab PO BEDTIME 12/10/21 12/10/21 Unknown History 200 mg-38 mg tablet (Advil PM) lactulose 10 gram/15 mL oral 15 ml PO DAILY PRN 12/10/21 12/10/21 Unknown History solution ondansetron 4 mg disintegrating 4 mg PO Q8H PRN 12/10/21 12/10/21 Unknown History tablet Allergies Allergy/AdvReac Type Severity Reaction Status Date / Time meperidine [From Demerol] Allergy Mild ADR/ALGY-Hy Verified 12/10/21 07:39 potension Opioids - Morphine Analogues Allergy Mild ADR/ALGY-Hy Verified 12/10/21 07:41 potension oxycodone [From Percocet] Allergy Mild ADR/ALGY-Hy Verified 12/10/21 07:39 potension penicillin G Allergy Unknown Unknown Verified 12/10/21 07:39 Penicillins Allergy Unknown Verified 12/10/21 07:43 PFSH Acute PFSH: Medical History (Updated 12/09/21 @ 16:33 by Toby Puentes MD) Bony metastasis BPH (benign prostatic hyperplasia) 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 Diffuse large B-cell lymphoma of extranodal site Fracture of clavicle, left, closed Hallux rigidus of both feet History of fracture of clavicle Peripheral neuropathy Surgical History (Updated 12/06/21 @ 17:04 by Nic Dickey MD) History of cataract surgery Bilateral cataract excisions Hx of repair of rotator cuff S/P arthroscopic surgery of left knee S/P lymph node biopsy (11/17/21) Core needle biopsy of left supraclavicular lymph node Status post surgical removal of malignant neoplasm of skin Family History Father Cancer Brother Diabetes Denies family history of CAD (coronary artery disease) Clotting disorder Dementia Hyperlipidemia Psychiatric illness Chronic kidney disease (CKD) Suicide Anesthesia complication Bleeding disorder Family history of premature coronary artery disease Lung disease Hypertension Stroke Social History Smoking and tobacco status: former smoker Quit status (tobacco): has quit using tobacco Second hand smoke exposure: Yes Smoking risk assessment/counseling performed?: Yes Alcohol intake: never Desire information about alcohol rehabilitation?: No Counseling given: No Desire information about substance/drug rehabilitation?: No Counseling given: No Adopted: No Caregiver/support person: No Lives independently: Yes Household members: spouse Housing: House Marital status: Current occupational status: retired Current occupational exposures/hazards: No History of recent travel: No Current gender identity: Male Physical Exam Narrative: General: No acute distress, AO x3, weak, chronically sick appearing, pleasant HEENT: PERRLA, pupils bilaterally equal and reactive Chest: Normal vesicular breath sounds, no added sounds, equal good air entry bilaterally CVS: S1-S2 regular, no murmurs, no tachycardia, no gallops, no rubs Abdomen: Soft, generalized tenderness all over the belly, no guarding no rebound tenderness, no organomegaly, bowel sounds present but sluggish Neuro: No focal deficits, no facial deformity, AO x3, power 5/5 in all limbs Data : 12/10/21 03:09 12/10/21 03:09 A&P Assessment and plan (1) Generalized weakness: Status: Acute (2) Hypokalemia: Status: Acute (3) Hypercalcemia: Status: Acute (4) DEMARCUS (acute kidney injury): Status: Acute (5) Diffuse large B-cell lymphoma of extranodal site: Status: Acute (6) Bony metastasis: Status: Acute (7) Fracture of clavicle, left, closed: Status: Acute (8) Decubitus skin ulcer: Status: Acute Plan Generalized weakness/hypokalemia/hypercalcemia: Most likely secondary from dehydration in setting of diffuse B-cell lymphoma. Patient already received sodium pamidronate at oncology office. Dexamethasone 10 mg every 6 hourly. Check vitamin D and PTH, ionized calcium Monitor BMP daily. Normal saline with 20 mg of potassium 100 cc/h. If does not improve can start calcitonin. Acute kidney injury: Most likely from hypercalcemia and dehydration. Medical reconciliation for nephrotoxic drugs. Check urine lites, urine creatinine. Strict input output charting. Fluid as above. Monitor BMP daily. B-cell lymphoma/bony metastasis/pathological fracture of left clavicle: Follows up with Dr. Dickey. Being worked up for chemotherapy as an outpatient with possible port placement. Chronic decubitus skin ulcer: Looks noninfected. Continue with wound care. Hold off on any antibiotics for now. Check iron panel, TSH, A1c, B12 level, folate level, prealbumin. Check blood cultures Constipation: Aggressive bowel regimen with milk of magnesia, senna, Colace daily. CT abdomen pelvis to rule out ileus versus small bowel obstruction chest without contrast. Analgesia: Tylenol as needed, morphine Glycemic control: Not needed Nutrition: Regular diet CODE STATUS: Discussed in detail with the patient. DNR/DNI. PUD prophylaxis: Protonix DVT prophylaxis: Heparin 5000 every 12 hourly Admit to [facility] with telemetry. Attestations Medical Necessity Statement*: Admission for more than 2 midnights for management of generalized weakness, hypercalcemia, acute kidney injury in setting of diffuse B-cell lymphoma with bony metastasis Time Spent in Patient Care: Greater than 35 minutes Coding Level of Care Code Acute Skilled Helper for [facility] Fwd Diagnoses Generalized weakness R53.1 Hypokalemia E87.6 Hypercalcemia E83.52 DEMARCUS (acute kidney injury) N17.9 Diffuse large B-cell lymphoma of extranodal site C83.39 Bony metastasis C79.51 Fracture of clavicle, left, closed S42.002A Decubitus skin ulcer L89.90
--- NOTE | 2021-12-09 16:39 | USR_ITS ---
PROCEDURE INFORMATION: Exam: US Duplex Lower Extremity Veins, Bilateral Exam date and time: 12/09/2021 4:56 PM Age: 81 years old Clinical indication: Swelling (edema) of limb; Lower extremity, bilateral; Additional info: R/O dvt TECHNIQUE: Imaging protocol: Real-time Duplex ultrasound of the bilateral extremities with 2-D nash scale, color Doppler flow and spectral waveform analysis with image documentation. Complete exam focused on the bilateral lower extremity veins. COMPARISON: CT foot RT wo con* [id number] 08/04/2020 8:11 PM FINDINGS: Right deep veins: Unremarkable. The common femoral, femoral, proximal profunda femoral and popliteal veins are patent without thrombus. Normal Doppler waveforms. Normal compressibility and/or augmentation response. Right superficial veins: Saphenofemoral junction is patent without thrombus. Left deep veins: Unremarkable. The common femoral, femoral, proximal profunda femoral and popliteal veins are patent without thrombus. Normal Doppler waveforms. Normal compressibility and/or augmentation response. Left superficial veins: Saphenofemoral junction is patent without thrombus. Soft tissues: Left 5.4 x 1.1 cm Thomas's cyst. US/[place] [id number] IMPRESSION: 1. Negative for deep venous thrombosis 2. Left 5.4 x 1.1 cm Thomas's cyst.
[2021-12-09 16:45] VITALS: BMI 28.0
--- NOTE | 2021-12-09 16:57 | USCV_ITS ---
Kendall Camejo Age: 81 Gender: M : 1940 Exam Date: 12/09/2021 19:04 Ordering Phys: Toby Puentes MD Technologist: AGUSTÍN Exam Location: [facility] [place] Indication: CHF BP: / HR: 81 Rhythm: Sinus Technical Quality: Adequate MEASUREMENTS (Male / Female) Normal Values 2D ECHO LV Diastolic Diameter PLAX 5.4 cm 4.2 - 5.9 / 3.9 - 5.3 cm LV Systolic Diameter PLAX 3.9 cm IVS Diastolic Thickness 0.6 cm 0.6 - 1.0 / 0.6 - 0.9 cm IVS Systolic Thickness 1.2 cm LVPW Diastolic Thickness 1.3 cm 0.6 - 1.0 / 0.6 - 0.9 cm LVPW Systolic Thickness 1.7 cm LVOT Diameter 2.0 cm LV Ejection Fraction 2D Teich 54.0 % LV Ejection Fraction MOD 2C 62.6 % LV Ejection Fraction 2C AL 68.9 % LA Diameter 3.8 cm LA Width 4.0 cm LA Height 5.7 cm RA Width 3.9 cm RA Height 6.0 cm Aorta at Sinotubular Diameter 2.2 cm M-MODE Aortic Annulus Diameter 2.7 cm LA Ao Ratio MM 1.5 MV E Point Septal Separation 1.1 cm DOPPLER AV Peak Velocity 176.3 cm/s LVOT Peak Velocity 93.0 cm/s AV Area Cont Eq vti 2.9 cm squared AV Area Cont Eq pk 1.7 cm squared MV Peak Velocity 95.0 cm/s MV Area PHT 5.0 cm squared Mitral E to A Ratio 1.1 MV E' Velocity 53.5 cm/s Mitral E to MV E' Ratio 10.9 Mitral E to LV E' Lateral Ratio 9.6 Mitral E to LV E' Septal Ratio 12.6 TR Peak Velocity 161.5 cm/s TR Peak Gradient 10.4 mmHg TR Mean Velocity 127.0 cm/s TR Mean Gradient 8.3 mmHg TR Velocity Time Integral 37.8 cm Right Atrial Pressure 10.0 mmHg Pulmonary Artery Systolic Pressu 20.4 mmHg PV Peak Velocity 139.0 cm/s RV Acceleration Time 0.1 s RV Ejection Time 0.3 s RV AcT/ET 0.5 FINDINGS Left Ventricle Normal left ventricular size. LV systolic function is normal with EF of 55-60%. No regional wall motion abnormalities. Diastolic function is normal Right Ventricle The right ventricle is normal in size and function. Right Atrium Not well visualized Left Atrium Grossly normal Mitral Valve Mild mitral annular calcification without significant stenosis or prolapse. There is trace mitral regurgitation. Aortic Valve Aortic valve is thickened without significant stenosis. There is no aortic regurgitation. Tricuspid Valve Structurally normal tricuspid valve without significant stenosis. Mild tricuspid regurgitation. Insufficient TR jet to calculate RVSP Pulmonic Valve Not well visualized. Pericardium Normal pericardium without effusion. Aorta Normal ascending aorta dimension. IVC CONCLUSIONS LV systolic function is normal with EF of 55-60% Diastolic function is normal Mild mitral annular calcification is seen. Trace mitral regurgitation Mild tricuspid regurgitation No comparison studies are available Ambrosio Rubio MD (Electronically Signed) Final Date: 10 December 2021 13:07 S
[2021-12-09 17:21] LABS: Basophils % 0.3 %; Eosinophils # 0.1 10^3/uL (0.0-0.8); Eosinophils % 1.8 %; Hemoglobin 10.5 g/dL (11.7-16.6); Lymphocytes # 0.5 10^3/uL (0.8-4.8); Lymphocytes % 6.3 %; Mean Corpuscular HGB Conc 33.9 g/dL (30.0-36.0); Mean Corpuscular Hemoglobin 31.3 pg (28.0-34.0); Mean Corpuscular Volume 92.3 fl (80-94); Mean Platelet Volume 10.6 fL (7.4-10.4); Monocytes # 0.8 10^3/uL (0.2-0.9); Monocytes % 10.7 %; Neutrophils # 5.71 10^3/uL (1.8-7.7); Neutrophils % 80.3 %; Nucleated Red Blood Cells % 0 %; Platelet Count 235 10^3/cmm (130-400); Red Blood Count 3.36 10^6/uL (4.1-5.3); Red Cell Distribution Width 12.3 % (12.1-15.1); White Blood Count 7.1 10^3/uL (4.0-10.0)
[2021-12-09 17:31] LABS: INR 1.15 (0.8-1.2)
[2021-12-09 17:41] LABS: Alanine Aminotransferase 15 U/L (0-41); Albumin Level 3.2 g/dL (3.5-5.2); Alkaline Phosphatase 88 IU/L (40-130); Anion Gap 14.3 (5-19); Aspartate Amino Transferase 24 U/L (0-40); Blood Urea Nitrogen 26 mg/dL (8-23); Calcium 11.8 mg/dL (8.5-10.5); Carbon Dioxide 29 mmol/L (22-29); Chloride 103 mmol/L (98-107); Globulin 2.6 g/dL (1.3-4.6); Glucose 78 mg/dL (65-115); Lactic Sepsis W/Reflex 1.6 mmol/L (0.5-2.2); Osmolality Calculated 300 mOsm/kg (285-295); Phosphorus 2.9 mg/dL (2.5-4.5); Potassium 3.3 mmol/L (3.5-5.1); Sodium 143 mmol/L (136-145); Total Bilirubin 0.7 mg/dL (0.15-1.2); Total Protein 5.8 g/dL (6.6-8.7)
[2021-12-09 18:12] VITALS: O2SAT 97
[2021-12-09] MEDS: ferrous gluconate 324 mg Tablet PO (18:12)
[2021-12-09] MEDS: bisacodyl 5 mg Tablet 10 MG PO (18:12)
[2021-12-09] MEDS: nystatin 100,000 unit/mL UDC 5 mL 100000 UNIT PO ×2 (18:12→21:03)
[2021-12-09] MEDS: magnesium hydroxide 30 mL UDC PO (18:12)
[2021-12-09] MEDS: sodium chlor 0.9% + KCl 20 mEq 20 MEQ/1,000 ML BAG 100 MEQ IV (18:13)
[2021-12-09] MEDS: dexamethasone 10 mg/mL INJ IVP (18:13)
[2021-12-09] MEDS: heparin 5,000 unit/mL INJ 1 mL 5000 UNIT SUBCUT (18:13)
[2021-12-09 18:14] VITALS: O2SAT 97
--- NOTE | 2021-12-09 18:16 | CTR_ITS ---
PROCEDURE INFORMATION: Exam: CT Chest Without Contrast; Diagnostic Exam date and time: 12/09/2021 10:08 PM Age: 81 years old Clinical indication: Constipation; Prior surgery; Surgery type: Rotator cuff. Lymph node biopsy. Patient HX: Worsening general weakness. Patient states no bm x 1 week. History of lymphoma with bone mets. Also history of ckd and cad. ; Additional info: Malignancy with mets, possible sbo TECHNIQUE: Imaging protocol: Diagnostic computed tomography of the chest without contrast. Radiation optimization: All CT scans at this facility use at least one of these dose optimization techniques: automated exposure control; mA and/or kV adjustment per patient size (includes targeted exams where dose is matched to clinical indication); or iterative reconstruction. COMPARISON: CT chest w con* [id number] 10/25/2021 10:33 AM RADIATION DOSE METRICS: Total DLP (mGy-cm): 2335.07 FINDINGS: Lungs: Bibasilar atelectasis. Pleural spaces: Unremarkable. No pneumothorax. No pleural effusion. Heart: Mild cardiomegaly. Coronary artery atherosclerotic calcifications. Lymph nodes: Scattered prominent subcentimeter short axis nonspecific mediastinal lymph nodes. Vasculature: Unremarkable. No aortic aneurysm. Bones/joints: Left posterior 7th rib bony destruction with associated soft tissue density likely reflecting underlying malignancy. Multilevel lytic and sclerotic lower thoracic and lumbar spine bony lesions suggestive of metastatic disease. Soft tissues: Unremarkable. PROCEDURE INFORMATION: Exam: CT Abdomen And Pelvis Without Contrast Exam date and time: 12/09/2021 10:08 PM Age: 81 years old Clinical indication: Constipation; Prior surgery; Surgery type: Rotator cuff. Lymph node biopsy. Patient HX: Worsening general weakness. Patient states no bm x 1 week. History of lymphoma with bone mets. Also history of ckd and cad. ; Additional info: Malignancy with mets, possible sbo TECHNIQUE: Imaging protocol: Computed tomography of the abdomen and pelvis without contrast. Radiation optimization: All CT scans at this facility use at least one of these dose optimization techniques: automated exposure control; mA and/or kV adjustment per patient size (includes targeted exams where dose is matched to clinical indication); or iterative reconstruction. COMPARISON: CT abdomen pelvis w con* [id number] 03/17/2021 11:13 AM RADIATION DOSE METRICS: Total DLP (mGy-cm): 2335.07 FINDINGS: Liver: Normal. No mass. Gallbladder and bile ducts: Normal. No calcified stones. No ductal dilation. Pancreas: Normal. No ductal dilation. Spleen: Normal. No splenomegaly. Adrenal glands: Normal. No mass. Kidneys and ureters: See Urinary bladder finding. Stomach and bowel: Constipation. Appendix: No evidence of appendicitis. Intraperitoneal space: Unremarkable. No free air. No significant fluid collection. Vasculature: Unremarkable. No abdominal aortic aneurysm. Lymph nodes: Unremarkable. No enlarged lymph nodes. Urinary bladder: Layering calcification in the dependent portion of the urinary bladder measuring up to 11 mm suggestive of small bladder calculi. 5.8 mm calculus in the right aspect of the urinary bladder near the ureterovesical junction without associated hydronephrosis or hydroureter. Reproductive: Unremarkable as visualized. Bones/joints: Iliac bones demonstrates scattered somewhat lucent bony lesion suggestive of diffuse metastatic disease. Soft tissues: Unremarkable. CT/[place] [id number] IMPRESSION: 1. Scattered prominent subcentimeter short axis nonspecific mediastinal lymph nodes. 2. Mild cardiomegaly. 3. Coronary artery atherosclerotic calcifications. 4. Left posterior 7th rib bony destruction with associated soft tissue density likely reflecting underlying malignancy. 5. Multilevel lytic and sclerotic lower thoracic and lumbar spine bony lesions suggestive of metastatic disease. 6. Bibasilar atelectasis. IMPRESSION: 1. Negative for acute inflammatory process in the abdomen or pelvis. 2. Layering calcification in the dependent portion of the urinary bladder measuring up to 11 mm suggestive of small bladder calculi. 3. 5.8 mm calculus in the right aspect of the urinary bladder near the ureterovesical junction without associated hydronephrosis or hydroureter. 4. Iliac bones demonstrates scattered somewhat lucent bony lesion suggestive of diffuse metastatic disease. 5. Constipation.
[2021-12-09] MEDS: lactulose oral liq 20 gm/30 mL UDC 10 GM PO (18:55)
[2021-12-09 19:57] LABS: Thyroid Stimulating Hormone 2.42 uIU/mL (0.27-4.20)
[2021-12-09 20:00] VITALS: BP 171/73; PULSE 83; RESP 17; TEMP 37.4; O2SAT 93
[2021-12-09 20:27] VITALS: PULSE 81; O2SAT 94
[2021-12-09 20:33] LABS: Urine Creatinine 62 mg/dL (39-259)
[2021-12-09 21:27] LABS: Calcium 11.9 mg/dL (8.5-10.5)
[2021-12-09 21:28] LABS: Prealbumin 12.6 mg/dL (20-40)
[2021-12-09 21:33] LABS: Parathyroid Hormone 9.8 pg/mL (15-65)
[2021-12-09 21:42] LABS: Vitamin B12 577 pg/mL (232-1245)
[2021-12-09] MEDS: acetaminophen 325 mg Tablet 650 MG PO (21:49)
[2021-12-09 22:00] VITALS: PULSE 79
[2021-12-09 22:41] LABS: Folate Level > 20.0 ng/mL (4.5-32.2)
[2021-12-10] VITALS (12 sets, daily range): BP systolic 140–172; BP diastolic 64–83; PULSE 64–88; RESP 16–20; TEMP 36.4–37.6; O2SAT 91–97; BMI 30.6
[2021-12-10] MEDS: sodium chlor 0.9% + KCl 20 mEq 20 MEQ/1,000 ML BAG 100 MEQ IV ×3 (02:03→20:15)
[2021-12-10 03:59] LABS: Basophils % 0.2 %; Hematocrit 28.4 % (42.0-52.0); Hemoglobin 9.9 g/dL (11.7-16.6); Lymphocytes # 0.3 10^3/uL (0.8-4.8); Lymphocytes % 5.9 %; Mean Corpuscular HGB Conc 34.9 g/dL (30.0-36.0); Mean Corpuscular Hemoglobin 30.9 pg (28.0-34.0); Mean Corpuscular Volume 88.8 fl (80-94); Mean Platelet Volume 11.4 fL (7.4-10.4); Monocytes # 0.1 10^3/uL (0.2-0.9); Monocytes % 1.5 %; Neutrophils # 4.36 10^3/uL (1.8-7.7); Neutrophils % 91.8 %; Nucleated Red Blood Cells % 0 %; Platelet Count 222 10^3/cmm (130-400); Red Cell Distribution Width 12.1 % (12.1-15.1); White Blood Count 4.8 10^3/uL (4.0-10.0)
[2021-12-10 04:24] LABS: Alanine Aminotransferase 16 U/L (0-41); Albumin Level 2.8 g/dL (3.5-5.2); Alkaline Phosphatase 90 IU/L (40-130); Aspartate Amino Transferase 26 U/L (0-40); Blood Urea Nitrogen 29 mg/dL (8-23); Calcium 11.4 mg/dL (8.5-10.5); Carbon Dioxide 25 mmol/L (22-29); Chloride 105 mmol/L (98-107); Globulin 2.7 g/dL (1.3-4.6); Glucose 121 mg/dL (65-115); Magnesium 2.1 mg/dL (1.7-2.3); Osmolality Calculated 301 mOsm/kg (285-295); Phosphorus 3.3 mg/dL (2.5-4.5); Sodium 142 mmol/L (136-145); Total Bilirubin 0.4 mg/dL (0.15-1.2); Total Protein 5.5 g/dL (6.6-8.7)
[2021-12-10 04:29] LABS: Estmated Average Glucose 105; Hemoglobin A1C 5.3 % (4.0-6.0)
[2021-12-10 04:34] LABS: Anion Gap 15.7 (5-19); Potassium 3.7 mmol/L (3.5-5.1)
[2021-12-10 04:50] LABS: Chol HDL Ratio 5.07 mg/dL (1.0-5.00); Cholesterol 142 mg/dL (0-200); HDL Cholesterol 28 mg/dL (60-100); LDL Cholesterol Calculated 92 mg/dL (50-129); LDL HDL Ratio 3.29 RATIO (0.00-3.22); Triglycerides 108 mg/dL (0-150)
[2021-12-10] MEDS: heparin 5,000 unit/mL INJ 1 mL 5000 UNIT SUBCUT ×2 (05:25→17:19)
[2021-12-10] MEDS: dexamethasone 10 mg/mL INJ IVP ×5 (05:43→23:19)
[2021-12-10] MEDS: lactulose oral liq 20 gm/30 mL UDC 10 GM PO (08:42)
[2021-12-10] MEDS: nystatin 100,000 unit/mL UDC 5 mL 100000 UNIT PO ×4 (08:42→20:15)
[2021-12-10] MEDS: folic acid 1 mg Tablet PO (08:42)
[2021-12-10] MEDS: magnesium hydroxide 30 mL UDC PO (08:42)
[2021-12-10] MEDS: ferrous gluconate 324 mg Tablet PO ×2 (08:42→17:19)
[2021-12-10] MEDS: tamsulosin 0.4 mg Capsule PO (08:47)
[2021-12-10 11:40] LABS: Glucose Point of Care 146 mg/dL (70-110)
--- NOTE | 2021-12-10 13:15 | PM.PN ---
Subjective Subjective: No acute events overnight. Seen with at bedside. Denies of having any shortness of breath, nausea, vomiting. Patient still complaining of constipation. Asking for a bowel regimen. Has remained hemodynamically stable and afebrile. Vitals/I&O/Wt Last Vital Signs Temp 98.8 F 12/10/21 11:51 Pulse 78 12/10/21 11:51 Resp 16 12/10/21 11:51 BP 153/66 12/10/21 11:51 Pulse Ox 93 12/10/21 11:51 12/09/21 12/10/21 12/10/21 22:59 06:59 14:59 Intake Total 240 / 240 883.333 / 1123.333 Output Total 400 / 400 200 / 600 Balance -160 / -160 683.333 / 523.333 Weight last 48 hrs Weight 102.512 kg Weight 96.298 kg Weight 96.615 kg Physical Exam Narrative: General: No acute distress, AO x3, weak, chronically sick appearing, pleasant HEENT: PERRLA, pupils bilaterally equal and reactive Chest: Normal vesicular breath sounds, no added sounds, equal good air entry bilaterally CVS: S1-S2 regular, no murmurs, no tachycardia, no gallops, no rubs Abdomen: Soft, generalized tenderness all over the belly, no guarding no rebound tenderness, no organomegaly, bowel sounds present but sluggish Neuro: No focal deficits, no facial deformity, AO x3, power 5/5 in all limbs Data : 12/10/21 03:09 12/10/21 03:09 Micro: Microbiology 12/09/21 17:56 Blood Culture - Preliminary Blood SPECIMEN COLLECTED 12/09/21 17:12 Blood Culture - Preliminary Blood SPECIMEN COLLECTED A&P Assessment and plan (1) Generalized weakness: Status: Acute (2) Hypokalemia: Status: Acute (3) Hypercalcemia: Status: Acute (4) DEMARCUS (acute kidney injury): Status: Acute (5) Diffuse large B-cell lymphoma of extranodal site: Status: Acute (6) Bony metastasis: Status: Acute (7) Fracture of clavicle, left, closed: Status: Acute (8) Decubitus skin ulcer: Status: Acute (9) Protein-energy malnutrition: Low prealbumin. Continue to encourage patient to eat more Status: Acute Plan Generalized weakness/hypokalemia/hypercalcemia: Most likely secondary from dehydration in setting of diffuse B-cell lymphoma. Got pamidronate in oncology office on . Continue with dexamethasone 10 mg every 6 hour. Low PTH, vitamin D levels awaited. Folate levels high. Ionized calcium elevated. Start on calcitonin 100 units twice daily for 2 days. Continue normal saline 100 cc/h. 40 mg of IV Lasix Secondary output charting. Acute kidney injury: Most likely from hypercalcemia and dehydration. Medical reconciliation for nephrotoxic drugs. Check urine lites, urine creatinine. Strict input output charting. Fluid as above. Monitor BMP daily. B-cell lymphoma/bony metastasis/pathological fracture of left clavicle: Follows up with Dr. Dickey. Being worked up for chemotherapy as an outpatient with possible port placement. Due for PET scan on 12/11. Chronic decubitus skin ulcer: Looks noninfected. Continue with wound care. Constipation: Aggressive bowel regimen with milk of magnesia, senna, Colace daily. CT abdomen pelvis to rule out ileus versus small bowel obstruction chest without contrast. Enema today. Analgesia: Tylenol as needed, morphine Glycemic control: Not needed Nutrition: Regular diet CODE STATUS: Discussed in detail with the patient. DNR/DNI. PUD prophylaxis: Protonix DVT prophylaxis: Heparin 5000 every 12 hourly Continue [facility] care. Attestations Medical Necessity Statement*: Requires further hospitalization for management of acute kidney injury, hypercalcemia in setting of diffuse B-cell lymphoma Time Spent in Patient Care: Greater than 35 minutes Coding Level of Care Code Acute Linen Room Worker for [facility] Fwd Diagnoses Generalized weakness R53.1 Hypokalemia E87.6 Hypercalcemia E83.52 DEMARCUS (acute kidney injury) N17.9 Diffuse large B-cell lymphoma of extranodal site C83.39 Bony metastasis C79.51 Fracture of clavicle, left, closed S42.002A Decubitus skin ulcer L89.90 Protein-energy malnutrition E46
[2021-12-10 13:16] LABS: Specific Gravity, Urine 1.025 (1.005-1.030); Urine Appearance Clear (CLEAR); Urine Color Yellow (Yellow); pH Urine 5 (5-7)
[2021-12-10 13:17] LABS: Add Urine Culture? No; Add Urine Microscopic? YES; Bilirubin Urine Neg (Negative); Blood Urine Neg (Negative); Glucose Urine UA Norm (Normal); Ketones Urine 1+ (Negative); Leukocyte Esterase Urine Negative (Negative); Nitrate Urine Negative (Negative); Protein Urine Neg (Negative); Urobilinogen Urine Norm (Negative); WBC Urine 0-4 /hpf (0-5)
[2021-12-10 13:43] LABS: Ionized Calcium 1.6 mmol/L (1.1-1.4)
[2021-12-10] MEDS: Fleet Enema 133 mL Enema PR (13:47)
[2021-12-10] MEDS: FUROsemide 10 mg/mL SDV 4mL 40 MG IVP (13:47)
[2021-12-10 13:55] LABS: Eosinophil Urine No Eosinophils Seen; Urine Eosinophil Count 0 (0-0)
--- NOTE | 2021-12-10 13:58 | PC.NURSE ---
Enema gave per order
[2021-12-10 13:59] LABS: Urine Creatinine 92 mg/dL (39-259)
[2021-12-10] MEDS: acetaminophen 325 mg Tablet 650 MG PO (14:28)
[2021-12-10] MEDS: calcitonin,salmon 200 unit/mL SDV 2mL 100 UNIT SUBCUT (16:07)
[2021-12-10] MEDS: diphenhydrAMINE 25 mg Capsule PO (23:35)
[2021-12-11] VITALS (8 sets, daily range): BP systolic 123–170; BP diastolic 66–75; PULSE 65–86; RESP 14–17; TEMP 36.4–37.3; O2SAT 91–95
--- NOTE | 2021-12-11 00:39 | PC.NURSE ---
Dr. Madden notified of patient asking for a light sleeping pill. Benadryl x1 ordered.
[2021-12-11] MEDS: calcitonin,salmon 200 unit/mL SDV 2mL 100 UNIT SUBCUT (04:36)
[2021-12-11] MEDS: heparin 5,000 unit/mL INJ 1 mL 5000 UNIT SUBCUT ×2 (04:37→17:21)
[2021-12-11] MEDS: dexamethasone 10 mg/mL INJ IVP ×3 (04:37→17:21)
[2021-12-11] MEDS: sodium chlor 0.9% + KCl 20 mEq 20 MEQ/1,000 ML BAG 100 MEQ IV (07:44)
[2021-12-11] MEDS: magnesium hydroxide 30 mL UDC PO (07:45)
[2021-12-11] MEDS: lactulose oral liq 20 gm/30 mL UDC 10 GM PO (07:45)
[2021-12-11] MEDS: nystatin 100,000 unit/mL UDC 5 mL 100000 UNIT PO (07:45)
[2021-12-11] MEDS: ferrous gluconate 324 mg Tablet PO ×2 (07:46→17:21)
[2021-12-11] MEDS: tamsulosin 0.4 mg Capsule PO (07:46)
[2021-12-11] MEDS: folic acid 1 mg Tablet PO (07:46)
[2021-12-11 08:50] LABS: Calcium Urine Random 46.2 mg/dL
[2021-12-11 09:32] LABS: Ionized Calcium 1.4 mmol/L (1.1-1.4)
[2021-12-11 09:39] LABS: Basophils % 0.1 %; Hematocrit 33.1 % (42.0-52.0); Hemoglobin 11.3 g/dL (11.7-16.6); Lymphocytes # 0.3 10^3/uL (0.8-4.8); Lymphocytes % 1.8 %; Mean Corpuscular HGB Conc 34.1 g/dL (30.0-36.0); Mean Corpuscular Volume 90.7 fl (80-94); Mean Platelet Volume 10.9 fL (7.4-10.4); Monocytes # 0.2 10^3/uL (0.2-0.9); Monocytes % 1.4 %; Neutrophils # 15.97 10^3/uL (1.8-7.7); Neutrophils % 95.9 %; Nucleated Red Blood Cells % 0 %; Platelet Count 290 10^3/cmm (130-400); Red Blood Count 3.65 10^6/uL (4.1-5.3); Red Cell Distribution Width 12.5 % (12.1-15.1); White Blood Count 16.7 10^3/uL (4.0-10.0)
[2021-12-11 10:13] LABS: Alanine Aminotransferase 18 U/L (0-41); Albumin Level 3.6 g/dL (3.5-5.2); Alkaline Phosphatase 95 IU/L (40-130); Anion Gap 15.6 (5-19); Aspartate Amino Transferase 24 U/L (0-40); Blood Urea Nitrogen 38 mg/dL (8-23); Calcium 10.3 mg/dL (8.5-10.5); Carbon Dioxide 27 mmol/L (22-29); Chloride 104 mmol/L (98-107); Globulin 2.8 g/dL (1.3-4.6); Glucose 201 mg/dL (65-115); Osmolality Calculated 311 mOsm/kg (285-295); Potassium 3.6 mmol/L (3.5-5.1); Sodium 143 mmol/L (136-145); Total Bilirubin 0.4 mg/dL (0.15-1.2); Total Protein 6.4 g/dL (6.6-8.7)
[2021-12-11] MEDS: amlodipine 5 mg Tablet PO (11:47)
[2021-12-11 13:20] LABS: Potassium, Radom Urine 30 mmol/L; Urine Creatinine 65 mg/dL (39-259); Urine Random Chloride 60 mmol/L; Urine Random Sodium 60 mmol/L
[2021-12-11 14:13] LABS: Eosinophil Urine No Eosinophils Seen; Urine Eosinophil Count 0 (0-0)
--- NOTE | 2021-12-11 16:16 | US_ITS ---
WS: [id number] RENAL ULTRASOUND HISTORY: demetrice COMPARISON: None available. TECHNIQUE: 2-D and color Doppler imaging of the kidney submitted. Right kidney: 11.2 cm x 6.4 cm x 5.9 cm. Normal echogenicity with no hydronephrosis or mass. Left kidney: 10.2 cm x 7.3 cm x 6.2 cm. Normal echogenicity with no hydronephrosis or mass. Aorta: Normal. Urinary Bladder: Minimally distended bladder. There is mild wall thickening which may be due to under distention. Prostate gland is hypoechoic and slightly irregular measuring 3.6 x 2.6 x 3.9 cm. US/US renal BI* [id number] IMPRESSION: 1. Negative renal ultrasound. No hydronephrosis or mass identified. 2. Mild prostate gland enlargement.
--- NOTE | 2021-12-11 16:17 | P.PN_ITS ---
Subjective Subjective: No acute events overnight. Patient did have 2-3 bowel movements yesterday after enema. States he is feeling a lot better. Today on examination patient is a lot more awake and alert. Able to have complete conversation. Speech is clear. at bedside. Has remained hemodynamically stable and afebrile. Urine output documented last 24 hours 4600. Continues to remain on room air. Blood pressure mildly elevated. Vitals/I&O/Wt Last Vital Signs Temp 98.2 F 12/11/21 16:00 Pulse 76 12/11/21 16:00 Resp 14 12/11/21 16:00 BP 159/75 12/11/21 16:00 Pulse Ox 93 12/11/21 16:00 12/11/21 12/11/21 12/11/21 06:59 14:59 22:59 Intake Total 1500 / 3266.667 Output Total 700 / 2700 900 / 900 Balance 800 / 566.667 -900 / -900 Weight last 48 hrs Weight 98.571 kg Weight 102.512 kg Weight 96.298 kg Weight 96.615 kg Physical Exam Narrative: General: No acute distress, AO x3, looking stronger today, otherwise chronically sick appearing, pleasant HEENT: PERRLA, pupils bilaterally equal and reactive Chest: Normal vesicular breath sounds, no added sounds, equal good air entry bilaterally CVS: S1-S2 regular, no murmurs, no tachycardia, no gallops, no rubs Abdomen: Soft, nontender, no guarding no rebound tenderness, no organomegaly, bowel sounds present but sluggish Neuro: No focal deficits, no facial deformity, AO x3, power 5/5 in all limbs Data : 12/11/21 09:22 12/11/21 09:22 Micro: Microbiology 12/09/21 17:56 Blood Culture - Preliminary Blood NEGATIVE TO DATE 12/09/21 17:12 Blood Culture - Preliminary Blood NEGATIVE TO DATE A&P Assessment and plan (1) Generalized weakness: Status: Acute (2) Hypokalemia: Status: Acute (3) Hypercalcemia: Status: Acute (4) DEMARCUS (acute kidney injury): Status: Acute (5) Diffuse large B-cell lymphoma of extranodal site: Status: Acute (6) Bony metastasis: Status: Acute (7) Fracture of clavicle, left, closed: Status: Acute (8) Decubitus skin ulcer: Status: Acute (9) Protein-energy malnutrition: Low prealbumin. Continue to encourage patient to eat more Status: Acute Plan Generalized weakness/hypokalemia/hypercalcemia: Most likely secondary from dehydration in setting of diffuse B-cell lymphoma. Improving. Got pamidronate in oncology office on 12/09. Post 1 dose of Lasix on 12/10 Wean dexamethasone to 10 mg every 12 hours. Calcium level normal today. Ionized calcium level normal. Low PTH, vitamin D elevated. Continue calcitonin 100 units twice daily for 1 more day. Continue with IV hydration. Strict input output charting. Acute kidney injury: Stable. Most likely from hypercalcemia and dehydration. Medical reconciliation for nephrotoxic drugs. Fena: 1.2% consistent with intrinsic. Fluid as above. Monitor BMP daily. B-cell lymphoma/bony metastasis/pathological fracture of left clavicle: Follows up with Dr. Dickey. Being worked up for chemotherapy as an outpatient with possible port placement on coming Due for PET scan on 12/18. Chronic decubitus skin ulcer: Looks noninfected. Continue with wound care. Constipation: Aggressive bowel regimen with milk of magnesia, senna, Colace daily. CT abdomen pelvis to rule out ileus versus small bowel obstruction chest without contrast. Analgesia: Tylenol as needed, morphine Glycemic control: Not needed Nutrition: Regular diet CODE STATUS: Discussed in detail with the patient. DNR/DNI. PUD prophylaxis: Protonix DVT prophylaxis: Heparin 5000 every 12 hourly Continue MedSurg care. Attestations Medical Necessity Statement*: Requires further hospitalization for management of persistent acute kidney injury, resolving hypercalcemia in setting of diffuse B-cell lymphoma. Time Spent in Patient Care: Greater than 35 minutes Coding Level of Care Code Acute Math Specialist for Chg Fwd Diagnoses Generalized weakness R53.1 Hypokalemia E87.6 Hypercalcemia E83.52 DEMARCUS (acute kidney injury) N17.9 Diffuse large B-cell lymphoma of extranodal site C83.39 Bony metastasis C79.51 Fracture of clavicle, left, closed S42.002A Decubitus skin ulcer L89.90 Protein-energy malnutrition E46
[2021-12-11] MEDS: sodium chloride 0.45% 1,000 ML 100 ML IV ×2 (17:19→20:12)
[2021-12-11 20:33] LABS: Glucose Point of Care 157 mg/dL (70-110)
[2021-12-11] MEDS: diphenhydrAMINE 25 mg Capsule PO (23:12)
[2021-12-12] VITALS: BP 139/77; PULSE 82; RESP 17; TEMP 36.6; O2SAT 95
[2021-12-12] MEDS: dexamethasone 10 mg/mL INJ IVP (03:10)
[2021-12-12] MEDS: calcitonin,salmon 200 unit/mL SDV 2mL 100 UNIT SUBCUT (03:10)
[2021-12-12] MEDS: heparin 5,000 unit/mL INJ 1 mL 5000 UNIT SUBCUT (03:10)
[2021-12-12 04:00] VITALS: BP 126/71; PULSE 60; RESP 17; TEMP 36.9; O2SAT 93
[2021-12-12 04:20] LABS: Basophils % 0.1 %; Hematocrit 26.6 % (42.0-52.0); Hemoglobin 9.2 g/dL (11.7-16.6); Lymphocytes # 0.3 10^3/uL (0.8-4.8); Lymphocytes % 2.5 %; Mean Corpuscular HGB Conc 34.6 g/dL (30.0-36.0); Mean Corpuscular Hemoglobin 31.1 pg (28.0-34.0); Mean Corpuscular Volume 89.9 fl (80-94); Mean Platelet Volume 11.3 fL (7.4-10.4); Monocytes # 0.5 10^3/uL (0.2-0.9); Monocytes % 4.2 %; Neutrophils # 11.65 10^3/uL (1.8-7.7); Neutrophils % 92.6 %; Nucleated Red Blood Cells % 0 %; Platelet Count 222 10^3/cmm (130-400); Red Blood Count 2.96 10^6/uL (4.1-5.3); Red Cell Distribution Width 12.6 % (12.1-15.1); White Blood Count 12.6 10^3/uL (4.0-10.0)
[2021-12-12 04:44] LABS: Alanine Aminotransferase 17 U/L (0-41); Alkaline Phosphatase 73 IU/L (40-130); Anion Gap 12.5 (5-19); Aspartate Amino Transferase 23 U/L (0-40); Blood Urea Nitrogen 38 mg/dL (8-23); Calcium 9.3 mg/dL (8.5-10.5); Carbon Dioxide 26 mmol/L (22-29); Chloride 103 mmol/L (98-107); Globulin 2.1 g/dL (1.3-4.6); Glucose 161 mg/dL (65-115); Osmolality Calculated 299 mOsm/kg (285-295); Potassium 3.5 mmol/L (3.5-5.1); Sodium 138 mmol/L (136-145); Total Bilirubin 0.2 mg/dL (0.15-1.2); Total Protein 5.1 g/dL (6.6-8.7)
[2021-12-12 04:55] VITALS: PULSE 58
[2021-12-12 06:30] LABS: Glucose Point of Care 167 mg/dL (70-110)
[2021-12-12] MEDS: insulin lispro 100 unit/1 mL SUBCUT (07:45)
[2021-12-12] MEDS: tamsulosin 0.4 mg Capsule PO (07:45)
[2021-12-12] MEDS: folic acid 1 mg Tablet PO (07:45)
[2021-12-12] MEDS: amlodipine 5 mg Tablet PO (07:45)
[2021-12-12] MEDS: ferrous gluconate 324 mg Tablet PO (07:45)
[2021-12-12] MEDS: lactulose oral liq 20 gm/30 mL UDC 10 GM PO (07:45)
[2021-12-12] MEDS: magnesium hydroxide 30 mL UDC PO (07:46)
[2021-12-12 08:00] VITALS: BP 146/68; PULSE 74; RESP 16; TEMP 36.6; O2SAT 95
--- NOTE | 2021-12-12 09:50 | PC.SOCIAL ---
IMM update IMM updated with patient. Verbalized an understanding. Copy Pg 2 provided. Initialled, dated, timed, and placed in chart.
[2021-12-12 11:53] LABS: Glucose Point of Care 157 mg/dL (70-110)
--- NOTE | 2021-12-12 12:18 | PM.DCS ---
Discharge Providers Date of Admission: 12/09/21 15:53 Date of Discharge: December 12, 2021 Attending Provider at Admission: Toby Puentes MD Attending Provider at Discharge: Toby Puentes MD Primary Care Provider: Robert Floyd MD Diagnoses at Discharge Discharge Diagnosis (1) Generalized weakness: Status: Acute (2) Hypokalemia: Status: Acute (3) Hypercalcemia: Status: Acute (4) DEMARCUS (acute kidney injury): Status: Acute (5) Diffuse large B-cell lymphoma of extranodal site: Status: Acute (6) Bony metastasis: Status: Acute (7) Fracture of clavicle, left, closed: Status: Acute (8) Decubitus skin ulcer: Status: Acute (9) Protein-energy malnutrition: Status: Acute Reason for Visit Reason for Visit: lymphoma Hospital Course Hospital Course Kendall Camejo is a 81 year old male with past medical history of diffuse B-cell lymphoma with bony metastasis, chronic decubitus ulcer, pathological fracture of left clavicle who was admitted as a direct admit from Dr. Dickey's office because of generalized weakness, hypercalcemia. Patient received pamidronate and 1 L of fluid bolus at oncology office.? Patient tells me that he has not had a bowel movement in the last 1 to 2 weeks though he is passing flatus and mucus.? Denies any nausea vomiting, headache.? States he is getting progressively weak in his legs.? Usually is able to walk around with a cane but recently has been getting more more difficult to do the same.? Denies any headache.? He states he has been having shaking in the body which has been going on for quite some time has gotten worse recently which is being followed up by his primary care provider. Of note, patient has been worked up for possible chemotherapy for diffuse B-cell lymphoma and is in works for getting a port placement with surgical team most likely on coming . Patient under the hospital further evaluation and management of acute kidney injury, hypercalcemia. He was started on treatment with IV hydration, calcitonin. On admission patient is also complaining of extensive constipation. Ileus or SBO was ruled out. He was treated with aggressive bowel regimen. Patient responded well to the treatment and his hypercalcemia and acute kidney injury resolved. He is been discharged in hemodynamically stable condition with advised to take at least 2.5 to 3 L of fluid daily. He is advised to follow-up with his outpatient oncologist/primary care provider within next 1 week for repeat BMP. Patient is due for port insertion on coming with outpatient surgery, PET scan on coming Monday. He is to maintain his appointment with wound care on coming Monday. During hospitalization physical therapy evaluation was done and home health has been arranged for the patient for home exercise program. Physical Exam Narrative: General: No acute distress, AO x3, looking stronger today, otherwise chronically sick appearing, pleasant HEENT: PERRLA, pupils bilaterally equal and reactive Chest: Normal vesicular breath sounds, no added sounds, equal good air entry bilaterally CVS: S1-S2 regular, no murmurs, no tachycardia, no gallops, no rubs Abdomen: Soft, nontender, no guarding no rebound tenderness, no organomegaly, bowel sounds present but sluggish Neuro: No focal deficits, no facial deformity, AO x3, power 5/5 in all limbs Discharge Data Studies Completed and Pending Completed Studies During Hospitalization Category Date Time Status CT chest abdomen pelvis [[place] [id number] Cat Scan 12/09/21 18:16 Completed ] [place] [id number] Urgent Ultrasound 12/09/21 16:39 Completed CV. echo complete* [id number] Routine Ultrasound 12/09/21 16:57 Completed Pending at discharge Category Date Time Status Blood Culture Stat Lab 12/09/21 17:56 Results PTH Related [PTH Related Peptide (Protein)] Routine Lab 12/09/21 Received Vitamin D 1,25 Dihydroxy Routine Lab 12/09/21 20:56 Received US renal BI* [id number] Routine Ultrasound 12/11/21 16:16 Taken Radiology Impressions Venous Duplex 12/09/21 16:39 IMPRESSION: 1. Negative for deep venous thrombosis 2. Left 5.4 x 1.1 cm Thomas's cyst. Chest/Abdomen/Pelvis CT 12/09/21 18:16 IMPRESSION: 1. Scattered prominent subcentimeter short axis nonspecific mediastinal lymph nodes. 2. Mild cardiomegaly. 3. Coronary artery atherosclerotic calcifications. 4. Left posterior 7th rib bony destruction with associated soft tissue density likely reflecting underlying malignancy. 5. Multilevel lytic and sclerotic lower thoracic and lumbar spine bony lesions suggestive of metastatic disease. 6. Bibasilar atelectasis. IMPRESSION: 1. Negative for acute inflammatory process in the abdomen or pelvis. 2. Layering calcification in the dependent portion of the urinary bladder measuring up to 11 mm suggestive of small bladder calculi. 3. 5.8 mm calculus in the right aspect of the urinary bladder near the ureterovesical junction without associated hydronephrosis or hydroureter. 4. Iliac bones demonstrates scattered somewhat lucent bony lesion suggestive of diffuse metastatic disease. 5. Constipation. Laboratory Results WBC 12.6 10^3/uL (4.0-10.0) H 12/12/21 03:29 RBC 2.96 10^6/uL (4.1-5.3) L 12/12/21 03:29 Hgb 9.2 g/dL (11.7-16.6) L 12/12/21 03:29 Hct 26.6 % (42.0-52.0) L 12/12/21 03:29 MCV 89.9 fl (80-94) 12/12/21 03:29 MCH 31.1 pg (28.0-34.0) 12/12/21 03:29 MCHC 34.6 g/dL (30.0-36.0) 12/12/21 03:29 RDW 12.6 % (12.1-15.1) 12/12/21 03:29 Plt Count 222 10^3/cmm (130-400) 12/12/21 03:29 MPV 11.3 fL (7.4-10.4) H 12/12/21 03:29 Neut % (Auto) 92.6 % 12/12/21 03:29 Lymph % (Auto) 2.5 % 12/12/21 03:29 [place] % (Auto) 4.2 % 12/12/21 03:29 Eos % (Auto) 0.0 % 12/12/21 03:29 Baso % (Auto) 0.1 % 12/12/21 03:29 Neut # (Auto) 11.65 10^3/uL (1.8-7.7) H 12/12/21 03:29 Lymph # (Auto) 0.3 10^3/uL (0.8-4.8) L 12/12/21 03:29 [place] # (Auto) 0.5 10^3/uL (0.2-0.9) 12/12/21 03:29 Eos # (Auto) 0.0 10^3/uL (0.0-0.8) 12/12/21 03:29 Baso # (Auto) 0.0 10^3/uL (0.0-0.1) 12/12/21 03:29 Nucleated RBC % (auto) 0 % 12/12/21 03:29 Nucleated RBCs # 0.0 /100WBC 12/12/21 03:29 PT 15.00 SECONDS (12.1-14.9) H 12/09/21 17:12 INR 1.15 (0.8-1.2) 12/09/21 17:12 Sodium 138 mmol/L (136-145) 12/12/21 03:29 Potassium 3.5 mmol/L (3.5-5.1) 12/12/21 03:29 Chloride 103 mmol/L (98-107) 12/12/21 03:29 Carbon Dioxide 26 mmol/L (22-29) 12/12/21 03:29 Anion Gap 12.5 (5-19) 12/12/21 03:29 BUN 38 mg/dL (8-23) H 12/12/21 03:29 Creatinine 1.6 mg/dL (0.7-1.2) H 12/12/21 03:29 GFR Calculation Not Reportable 12/12/21 03:29 Glucose 161 mg/dL (65-115) H 12/12/21 03:29 POC Glucose 157 mg/dL (70-110) H 12/12/21 10:54 Estimat Average Glucose 105 12/10/21 03:09 Hemoglobin A1c 5.3 % (4.0-6.0) 12/10/21 03:09 Calculated Osmolality 299 mOsm/kg (285-295) H 12/12/21 03:29 Lactic Acid 1.6 mmol/L (0.5-2.2) 12/09/21 17:12 Calcium 9.3 mg/dL (8.5-10.5) 12/12/21 03:29 Ionized Calcium Ivon 1.4 mmol/L (1.1-1.4) 12/11/21 09:22 Phosphorus 3.3 mg/dL (2.5-4.5) 12/10/21 03:09 Magnesium 2.1 mg/dL (1.7-2.3) 12/10/21 03:09 Total Bilirubin 0.2 mg/dL (0.15-1.2) 12/12/21 03:29 AST 23 U/L (0-40) 12/12/21 03:29 ALT 17 U/L (0-41) 12/12/21 03:29 Alkaline Phosphatase 73 IU/L (40-130) 12/12/21 03:29 Total Protein 5.1 g/dL (6.6-8.7) L D 12/12/21 03:29 Albumin 3.0 g/dL (3.5-5.2) L 12/12/21 03:29 Globulin 2.1 g/dL (1.3-4.6) 12/12/21 03:29 Prealbumin 12.6 mg/dL (20-40) L 12/09/21 20:56 Triglycerides 108 mg/dL (0-150) 12/10/21 03:09 Triglycerides Cancelled 12/10/21 03:09 Cholesterol 142 mg/dL (0-200) 12/10/21 03:09 Cholesterol Cancelled 12/10/21 03:09 LDL Cholesterol, Calc 92 mg/dL (50-129) 12/10/21 03:09 LDL Cholesterol, Calc Cancelled 12/10/21 03:09 HDL Cholesterol 28 mg/dL (60-100) L 12/10/21 03:09 HDL Cholesterol Cancelled 12/10/21 03:09 LDL/HDL Ratio 3.29 RATIO (0.00-3.22) H 12/10/21 03:09 LDL/HDL Ratio Cancelled 12/10/21 03:09 Cholesterol/HDL Ratio 5.07 mg/dL (1.0-5.00) H 12/10/21 03:09 Cholesterol/HDL Ratio Cancelled 12/10/21 03:09 Vitamin B12 577 pg/mL (232-1245) 12/09/21 20:56 Folate > 20.0 ng/mL (4.5-32.2) 12/09/21 20:56 Procalcitonin 0.10 ng/mL (0-0.5) 12/09/21 17:12 TSH 2.42 uIU/mL (0.27-4.20) 12/09/21 17:12 PTH Intact 9.8 pg/mL (15-65) L 12/09/21 20:56 Calcium (PTH Intact) 11.9 mg/dL (8.5-10.5) H 12/09/21 20:56 Urine Color Yellow (Yellow) 12/10/21 12:15 Urine Appearance Clear (CLEAR) 12/10/21 12:15 Urine pH 5 (5-7) 12/10/21 12:15 Ur Specific [place] 1.025 (1.005-1.030) 12/10/21 12:15 Urine Protein Neg (Negative) 12/10/21 12:15 Urine Glucose (UA) Norm (Normal) 12/10/21 12:15 Urine Ketones 1+ (Negative) H 12/10/21 12:15 Urine Blood Neg (Negative) 12/10/21 12:15 Urine Nitrate Negative (Negative) 12/10/21 12:15 Urine Bilirubin Neg (Negative) 12/10/21 12:15 Urine Urobilinogen Norm mg/dL (Negative) 12/10/21 12:15 Ur Leukocyte Esterase Negative (Negative) 12/10/21 12:15 Urine RBC 5-10 /hpf (0-2) H 12/10/21 12:15 Urine WBC 0-4 /hpf (0-5) H 12/10/21 12:15 Ur Eosinophil Smear 0 (0-0) 12/11/21 Unknown Ur Squamous Epith Cells 5-10 /hpf (0-5) H 12/10/21 12:15 Amorphous Sediment Not Reportable 12/10/21 12:15 Urine Bacteria None /hpf (NONE) 12/10/21 12:15 Urine Eosinophils No eosinophils seen 12/11/21 Unknown Ur Random Sodium 60 mmol/L 12/11/21 Unknown Ur Random Potassium 30 mmol/L 12/11/21 Unknown Ur Random Chloride 60 mmol/L 12/11/21 Unknown Ur Random Calcium 46.2 mg/dL 12/10/21 12:15 Urine Creatinine 65 mg/dL (39-259) 12/11/21 Unknown Vitals Last Vital Signs Temp 98 F 12/12/21 08:00 Pulse 74 12/12/21 08:00 Resp 16 12/12/21 08:00 BP 146/68 12/12/21 08:00 Pulse Ox 95 12/12/21 08:00 Discharge Plan Discharge Patient Disposition: Home Health Service Condition: Stable Prescriptions: New amlodipine 5 mg Tablet 5 mg PO DAILY Qty: 30 0RF ferrous gluconate 324 mg (37.5 mg iron) Tablet 324 mg PO BIDWM Qty: 60 0RF magnesium hydroxide [Milk of Magnesia] 400 mg/5 mL Suspension 30 ml PO DAILY Qty: 300 0RF dexamethasone 6 mg tablet 6 mg PO DAILY Qty: 10 0RF Continued tamsulosin 0.4 mg capsule 0.4 mg PO QPM 0RF (DME) Sole Supports Qty: 1 0RF Rx Instructions: As directed (DME) carbon fiber See Rx Instructions .ROUTE .MEDSUPPLY Qty: 1 0RF Rx Instructions: As directed (DME) Gel toe sleeve, right hallux See Rx Instructions .Route .MEDSUPPLY Qty: 1 0RF Rx Instructions: As directed folic acid 1 mg tablet 1 mg PO QPM 0RF Tylenol Ex Str Rapid Release 500 mg Tablet 500 mg PO Q4H PRN (Reason: Pain) 0RF ondansetron 4 mg tablet,disintegrating 4 mg PO Q8H PRN (Reason: Nausea And Vomiting) 0RF Advil PM 200-38 mg Tablet 1 tab PO BEDTIME 0RF Manuka Honey 100 % Gel 1 ea TOPICAL DAILY 0RF lactulose 10 gram/15 mL solution 15 ml PO DAILY PRN (Reason: Constipation) Qty: 300 0RF Changed Colace 100 mg Capsule 100 - 200 mg PO QPM Qty: 30 0RF Discharge Orders: Discharge Order (Routine); Ordered 12/12/21 Ordered By: Toby Puentes Referrals: Robert Floyd MD [Primary Care Provider] - 7-10 days Discharge Diet: Regular Discharge Activity: Resume usual activity and Increase activity as tolerated Patient Instructions: Opioid Safety Activity Restrictions/Additional Instructions: Please maintain your hydration. Take at least 2.5 to 3 L of fluid daily. Take regular diet as discussed in detail. Limit your dairy product consumption. Take stool softeners as discussed in detail. You should have repeat BMP within next 1 week to 10 days. Please follow-up with your outpatient oncologist within next 1 week. You will be on steroids with dexamethasone 6 mg daily for at least next 10 days. Further dosage of dexamethasone will be continued as per your outpatient oncologist. Discharge Attestations Time Spent in Discharge Care*: greater than 30 min Specific Discharge Activities: educating patient, educating and/or supporting family/caregiver, discussing with pcp/other providers, discussing with director of casework/social workers/dc planners, documenting/other paperwork and evaluating patient/reviewing data Status at Discharge: Cognitive status at discharge: cognitively intact, Behavioral status at discharge: cooperative, Functional status at discharge: uses cane/walker, Overall status at discharge: patient is progressing back to baseline Quality Metrics Clinical Quality Measures [ No reported AMI, CVA or VTE this stay] Coding Level of Care Code Acute Chg FW DC note History Comprehensive Exam Comprehensive Medical Decision Making High Complexity Diagnoses Generalized weakness R53.1 Hypokalemia E87.6 Hypercalcemia E83.52 DEMARCUS (acute kidney injury) N17.9 Diffuse large B-cell lymphoma of extranodal site C83.39 Bony metastasis C79.51 Fracture of clavicle, left, closed S42.002A Decubitus skin ulcer L89.90 Protein-energy malnutrition E46
[2021-12-12 13:01] VITALS: BP 146/68; PULSE 74; RESP 16; TEMP 36.6; O2SAT 95
[2021-12-15 08:17] LABS: Vit D 1,25 (Oh)2, Total 113 pg/mL (18-72); Vit D2 1,25 (Oh)2 <8 pg/mL; Vit D3 1,25 (Oh)2 113 pg/mL
[2021-12-17 16:03] LABS: PTH Related Peptide (Protein) 12 pg/mL (11-20)
== END 2021-12-12 13:02 | disposition home health service (06) | DRG 683 ==
PROVIDERS: Admitting Provider Student in an Organized Health Care Education/Training Program; PCP Family Medicine; Visit Provider Student in an Organized Health Care Education/Training Program
DX: N17.9 Acute kidney failure, unspecified (principal); C83.39 Diffuse large B-cell lymphoma, extranodal and solid organ sites; M84.512A Pathological fracture in neoplastic disease, left shoulder, initial encounter for fracture; E46 Unspecified protein-calorie malnutrition; E83.52 Hypercalcemia; K59.00 Constipation, unspecified; E87.6 Hypokalemia; E86.0 Dehydration; R60.0 Localized edema; L89.322 Pressure ulcer of left buttock, stage 2; Z68.29 Body mass index [BMI] 29.0-29.9, adult; Z86.73 Personal history of transient ischemic attack (TIA), and cerebral infarction without residual deficits
CPT/HCPCS: 36415; 36416; 71250; 73000; 73020; 74176; 76770; 80053; 80061; 81001; 82310; 82330; 82340; 82436; 82542; 82570; 82607; 82652; 82746; 82962; 83036; 83605; 83615; 83735; 83970; 84100; 84133; 84134; 84145; 84300; 84443; 85025; 85610; 85999; 87040; 93005; 93306; 93970; 94664; 96365; 96366; 96372; 97110; 97116; 97161; 97530; 99204; J0630; J1100; J1644; J1815; J1940; J2430; J7040

== ENCOUNTER → 2021-12-15 09:03 | Outpatient (BNVA) | payer OTHER, MEDICARE, SELFPAY | PROVIDERS: PCP Family Medicine; Visit Provider Nurse Practitioner Family | DX: I96 Gangrene, not elsewhere classified (principal); L89.312 Pressure ulcer of right buttock, stage 2 | CPT/HCPCS: 11042 ==

== ENCOUNTER 2021-12-16 05:56 | Day surgery (SDC) | payer OTHER, MEDICARE, SELFPAY ==
[2021-12-15 13:25] VITALS: BMI 28.3
[2021-12-16] VITALS (12 sets, daily range): BP systolic 119–162; BP diastolic 57–85; PULSE 80–122; RESP 16–20; TEMP 36.1–37.2; O2SAT 92–95
--- NOTE | 2021-12-16 | SCC_ITS ---
Procedure done: Port-A-Cath placement into the right internal jugular vein with intraoperative fluoroscopy and ultrasound interpretation 3.1 seconds of fluoroscopic guidance, for a cumulative dose of 0.44 mGy, was provided to Dr. Otoole by the radiology department. C-arm images of the chest were saved for the patient's permanent record. KARINA
--- NOTE | 2021-12-16 06:34 | W.PM.OPSUD ---
Surgery/Procedure H&P Update DATE OF PROCEDURE: December 16, 2021 DATE H&P PERFORMED: 12/07/21 H&P UPDATE INFORMATION: No changes to prior documentation PREOP DIAGNOSIS: Diffuse B-cell lymphoma. PLANNED PROCEDURE: Operation Date: 12/16/21 07:00 Proposed Procedures p Portacath Placement [id number],c83.39(Not Applicable) - Luis Fernando Otoole MD
[2021-12-16] MEDS: sodium chloride 0.9% 1,000 ML 30 ML IV (07:00)
--- NOTE | 2021-12-16 07:05 | SC_ITS ---
WS: [id number] INTRAOPERATIVE TECHNIQUE: 2 Spot fluoroscopic images for intraoperative purposes. FLUOROSCOPY TIME: 3.1 seconds CLINICAL INFORMATION: intra-op COMPARISON: None. FINDINGS: RIGHT Port-A-Cath with tip in the distal SVC. No visualized pneumothorax. SC/C-arm [place] for CVA [id number] IMPRESSION: Images obtained for intraoperative purposes.
[2021-12-16] MEDS: heparin, porcine 1,000 unit/mL INJ 10 mL 2000 UNIT XX (07:13)
--- NOTE | 2021-12-16 07:17 | ANES.PREANE2 ---
Pre-Anesthetic Assessment Height/Weight: Height 1.85 m Weight 97.522 kg Temp Pulse Resp BP Pulse Ox 97.0 F L 80 18 159/82 95 12/16/21 06:26 12/16/21 06:26 12/16/21 06:26 12/16/21 06:26 12/16/21 06:26 Preop Diagnosis: Diffuse B-cell lymphoma. Operation Date: 12/16/21 07:00 Proposed Procedures p Portacath Placement [id number],c83.39(Not Applicable) - Luis Fernando Otoole MD Familial anesthetic complications: None Was Beta Sabra taken within 24 hours: N/A Was Clonidine taken within 24 hours: N/A Last intake: Intake Last Liquid Date 12/15/21 Last Liquid Time 22:00 Last Solid Date 12/15/21 Last Solid Time 18:00 Social No alcohol and No tobacco Exam alert, oriented x 3, clear to auscultation bilaterally and regular rate & rhythm Airway Submandibular: within normal limits Cervical ROM: within normal limits Mallampati: Class II Dentition: chipped CV/HEM Hypertension lymphoma Chronic Renal Insufficiency Anesthetic Plan ASA status: 3 Anesthesia: MAC Medications/Allergies Home Medications Medication Instructions Recorded Confirmed Last Taken Type tamsulosin 0.4 mg capsule 0.4 mg PO QPM 07/01/19 12/16/21 12/15/21 History Sole Supports #1 ea 07/15/19 12/10/21 Unknown Rx carbon fiber #1 each 11/27/19 12/10/21 Unknown Rx Gel toe sleeve, right hallux #1 ea 12/12/19 12/10/21 Unknown Rx folic acid 1 mg tablet 1 mg PO QPM 02/16/21 12/16/21 12/15/21 History acetaminophen 500 mg tablet 500 mg PO Q4H PRN 12/10/21 12/15/21 Unknown History honey 100 % topical gel (Manuka 1 ea TOPICAL DAILY 12/10/21 12/15/21 Unknown History Honey) ibuprofen-diphenhydramine citrate 1 tab PO BEDTIME 12/10/21 12/16/21 12/15/21 History 200 mg-38 mg tablet (Advil PM) amlodipine 5 mg tablet 5 mg PO DAILY #30 tab 12/12/21 12/16/21 12/16/21 Rx dexamethasone 6 mg tablet 6 mg PO DAILY #10 tab 12/12/21 12/16/21 12/15/21 Rx ferrous gluconate 324 mg (37.5 mg 324 mg PO BIDWM #60 tab 12/12/21 12/16/21 12/15/21 Rx iron) tablet lactulose 10 gram/15 mL oral 15 ml PO DAILY PRN #300 ml 12/12/21 12/16/21 12/14/21 Rx solution magnesium hydroxide 400 mg/5 mL 30 ml PO DAILY #300 ml 12/12/21 12/16/21 12/15/21 Rx oral suspension (Milk of Magnesia) docusate sodium 100 mg capsule 100 - 200 mg PO QPM 12/15/21 12/16/21 12/15/21 History (Colace) Allergies Allergy/AdvReac Type Severity Reaction Status Date / Time meperidine [From Demerol] Allergy Mild ADR/ALGY-Hy Verified 12/15/21 13:14 potension Opioids - Morphine Analogues Allergy Mild ADR/ALGY-Hy Verified 12/15/21 13:14 potension oxycodone [From Percocet] Allergy Mild ADR/ALGY-Hy Verified 12/15/21 13:14 potension penicillin G Allergy Unknown Unknown Verified 12/15/21 13:14 Penicillins Allergy Unknown Verified 12/15/21 13:14 Current Medications Generic Name Dose Route Start Last Admin Trade Name Freq PRN Reason Stop Dose Admin Sodium Chloride 1,000 mls @ 30 mls/hr 12/16/21 06:15 12/16/21 07:00 Sodium Chloride 0.9% IV 12/17/21 06:14 30 mls/hr .Q24H REJI Administration PFSH Anesthesia Medical History (Updated 12/13/21 @ 00:00 by ) Bony metastasis BPH (benign prostatic hyperplasia) 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 Decubitus skin ulcer Diffuse large B-cell lymphoma of extranodal site Fracture of clavicle, left, closed Hallux rigidus of both feet History of fracture of clavicle Peripheral neuropathy Protein-energy malnutrition Surgical History (Updated 12/06/21 @ 17:04 by Nic Dickey MD) History of cataract surgery Bilateral cataract excisions Hx of repair of rotator cuff S/P arthroscopic surgery of left knee S/P lymph node biopsy (11/17/21) Core needle biopsy of left supraclavicular lymph node Status post surgical removal of malignant neoplasm of skin Family History Father Cancer Brother Diabetes Denies family history of CAD (coronary artery disease) Clotting disorder Dementia Hyperlipidemia Psychiatric illness Chronic kidney disease (CKD) Suicide Anesthesia complication Bleeding disorder Family history of premature coronary artery disease Lung disease Hypertension Stroke Social History Smoking and tobacco status: former smoker Quit status (tobacco): has quit using tobacco Second hand smoke exposure: Yes Smoking risk assessment/counseling performed?: Yes Alcohol intake: never Desire information about alcohol rehabilitation?: No Counseling given: No Desire information about substance/drug rehabilitation?: No Counseling given: No Adopted: No Caregiver/support person: No Lives independently: Yes Household members: spouse Housing: House Marital status: Current occupational status: retired Current occupational exposures/hazards: No History of recent travel: No Current gender identity: Male Data Anesthesia Cardiac Studies: Echocardiogram 12/09/21
--- NOTE | 2021-12-16 07:29 | PM.OP ---
Operative Report Date of procedure: December 16, 2021 Pre-op diagnosis: Preop Diagnosis Diffuse B-cell lymphoma. Post-op diagnosis: Same. Procedure done: Port-A-Cath placement into the right internal jugular vein with intraoperative fluoroscopy and ultrasound interpretation Surgeon: General Surgery Luis Fernando Otoole MD Anesthesia: MAC Complications: None. Procedure: The patient was brought to the Operating Room and was placed in a supine position on the operating room table. A monitored anesthetic was induced. The shoulders were extended by means of a posterior shoulder roll. The anterior surface of the chest and neck were prepped and draped in a sterile fashion. Intraoperative ultrasound was used to identify the right internal jugular vein just above the clavicle as evidenced by its size and compressibility. 1% lidocaine was used for local anesthetic. The right internal jugular vein was accessed on the first pass utilizing intraoperative ultrasound with a needle and syringe as evidenced by the return of dark nonpulsatile blood. The J-wire was passed down the needle and the needle was removed. The C-arm was positioned and showed the wire extending down the vena cava. A site just inferiorly on the right chest wall was anesthetized using a combination of 1% lidocaine and 0.5% bupivacaine with 1:200,000 parts of epinephrine. A transverse incision was made and an inferior pocket was created in the subcutaneous layer using cautery in preparation for port placement. The Port-A-Cath tubing was passed from the incision through the subcutaneous layer to the exit point of the J-wire at the base of the neck. The tubing was attached to the port and was cut to an appropriate length. The introducer and sheath were passed over the J-wire, and the introducer and J-wire were removed. The Port-A-Cath tubing was passed down the sheath, which was torn away. The C-arm was positioned and showed good placement of the Port-A-Cath tubing tip in the superior vena cava. The port aspirated easily and flushed well with hep flush solution. The port was sewn in place with some interrupted sutures of 3-0 PDS. The transverse incision was closed at the dermis using a single inverted suture of 3-0 Vicryl and the skin was approximated using a running subcuticular suture of 4-0 Vicryl. The small incision just above the clavicle at the previous insertion site of the J wire was closed using a single inverted suture of 4-0 Vicryl. Benzoin and Steri-Strips were placed over the incisions and a sterile bandage followed. The patient was taken to the recovery area in stable condition postoperatively. INTRAOPERATIVE FLUOROSCOPY FINDINGS: Intraoperative fluoroscopic images of a Port-A-Cath placement were reviewed. An initial image reveals a J-wire entering the right internal jugular vein and extending down the vena cava. Subsequent images reveal a Port-A-Cath on that side of the chest with its tubing tip in good location in the superior vena cava. No obvious pneumothorax is identified.
--- NOTE | 2021-12-16 07:35 | ECG_ITS ---
[facility] Test Date: 2021-12-16 Pat Name: Kendall Camejo Department: Room: Gender: Male Terminal Manager: : 1940 Requested By: Justin Dey Order Number: [id number] Young MD: Ambrosio Rubio M.D. Measurements Intervals [place] Rate: 113 P: TX: QRS: -29 QRSD: 98 T: -27 QT: 325 QTc: 447 Interpretive Statements ATRIAL FIBRILLATION WITH RAPID VENTRICULAR RESPONSE LOW QRS VOLTAGE IN PRECORDIAL LEADS [QRS DEFLECTION < 1.0 mV IN CHEST LEADS] POSSIBLE ANTERIOR MYOCARDIAL INFARCTION , PROBABLY OLD [30 ms Q WAVE IN V3/V4, OR R < 0.2 mV IN V4] ABNORMAL RHYTHM ECG Compared to ECG 12/09/2021 16:53:50 Sinus rhythm no longer present Myocardial infarct finding still present Electronically Signed On 12-16-2021 22:33:07 CDT by Ambrosio Rubio M.D. [email or web address] medical [email or web address] health main [id number]
--- NOTE | 2021-12-16 07:41 | PC.NURSE ---
pt arrived in pacu report was given to this nurse dressings present and clean dry and intact TRANSPORTATION AIDE informed this nurse about a potential new onset of A Fib ekg ordered pt is awake and alert pt also has a fracture of his clavacle which was present prior to this procedure
[2021-12-16] MEDS: dilTIAZem 5 mg/mL SDV 5 mL IVP (08:00)
--- NOTE | 2021-12-16 08:22 | PC.NURSE ---
pt ekg finding was new onset a francie Solorzano from anesthesia ordered 5mg of Cardizem IVP pt heart rate became more stable and a lower rate was achieved pt and family were advised to follow up with primary care
--- NOTE | 2021-12-16 14:58 | ANE.PACU2 ---
Inpatient post-anesthesia follow up: Airway intact: Yes Vital signs: Temperature 97.4 F Pulse Rate 85 Respiratory Rate 18 Blood Pressure 122/57 Pulse Oximetry 94 Oxygen Delivery Me thod Room Air Oxygen Flow Rate Fraction of Inspir ed Oxygen Hydration adequate: Yes Nausea and vomiting: No Pain level: 1 Mental status: Baseline Additional Comments: A.fib with RVR, given 5mg cardizem for rate control to f/u with PCP
== END 2021-12-16 09:15 | disposition home or self-care (01) ==
PROVIDERS: PCP Family Medicine; Visit Provider Surgery
PROC: (CPT 36561; principal; 2021-12-16 07:00)
DX: C85.10 Unspecified B-cell lymphoma, unspecified site (principal); I10 Essential (primary) hypertension; N40.0 Benign prostatic hyperplasia without lower urinary tract symptoms; Z87.891 Personal history of nicotine dependence
CPT/HCPCS: 36561; 77001; 93005; C1788; J0690; J1644; J2704; J3010; J3490; J7030

== ENCOUNTER 2021-12-21 14:52 | Outpatient (CLI) | payer MEDICARE, OTHER, SELFPAY ==
[2021-12-21 15:50] LABS: Blood Urea Nitrogen 23 mg/dL (8-23); Calcium 8.8 mg/dL (8.5-10.5); Carbon Dioxide 17 mmol/L (22-29); Chloride 100 mmol/L (98-107); Glucose 130 mg/dL (65-115); Osmolality Calculated 277 mOsm/kg (285-295); Sodium 131 mmol/L (136-145)
[2021-12-21 15:55] LABS: Anion Gap 18.8 (5-19); Potassium 4.8 mmol/L (3.5-5.1)
== END 2021-12-21 14:53 | disposition home or self-care (01) ==
PROVIDERS: PCP Family Medicine; Visit Provider Family Medicine
DX: L89.322 Pressure ulcer of left buttock, stage 2 (principal)
CPT/HCPCS: 80048

== ENCOUNTER → 2021-12-22 08:06 | Outpatient (BNVA) | payer MEDICARE, OTHER, SELFPAY | PROVIDERS: PCP Family Medicine; Visit Provider Thoracic Surgery (Cardiothoracic Vascular Surgery) | DX: I96 Gangrene, not elsewhere classified (principal); L89.322 Pressure ulcer of left buttock, stage 2 | CPT/HCPCS: 97597 ==

== ENCOUNTER 2021-12-23 08:00 | Oncology outpatient (recurring) (ONCR) | payer OTHER, MEDICARE, SELFPAY ==
--- NOTE | 2021-12-06 16:33 | XRR_ITS ---
PROCEDURE INFORMATION: Exam: XR Left Shoulder Exam date and time: 12/06/2021 4:38 PM Age: 81 years old Clinical indication: Pain; Prior surgery; Surgery type: Left shoulder surgery; Patient HX: No known trauma, HX of basal cell carcinoma; Additional info: Pain left shoulder TECHNIQUE: Imaging protocol: XR Left shoulder. Views: 1 view. COMPARISON: CR XR shoulder LT min 2V* [id number] 09/06/2021 9:26 AM FINDINGS: Bones/joints: Distal left clavicular fracture. The osseous structures are intact. Rotator cuff anchors noted in the humeral head. Moderate DJD of the glenohumeral joint. Soft tissues: Normal. XR/XR shoulder LT 1V [id number] IMPRESSION: Distal left clavicular fracture.
--- NOTE | 2021-12-06 16:33 | XRR_ITS ---
PROCEDURE INFORMATION: Exam: XR Left Clavicle, Complete Exam date and time: 12/06/2021 4:38 PM Age: 81 years old Clinical indication: Pain; Shoulder; Left; Patient HX: No known trauma, HX of basal cell carcinoma; Additional info: Pain left shoulder TECHNIQUE: Imaging protocol: XR Left clavicle complete. Views: Any number of views. COMPARISON: [place] [id number] 10/20/2021 9:03 AM FINDINGS: Bones/joints: Distal left clavicular fracture. Moderate DJD of the acromioclavicular joint. Soft tissues: Normal. XR/[place] [id number] IMPRESSION: Distal left clavicular fracture.
[2021-12-06 16:59] LABS: Basophils % 0.3 %; Eosinophils # 0.1 10^3/uL (0.0-0.8); Eosinophils % 1.8 %; Hematocrit 33.3 % (42.0-52.0); Hemoglobin 11.4 g/dL (11.7-16.6); Lymphocytes # 0.5 10^3/uL (0.8-4.8); Lymphocytes % 5.8 %; Mean Corpuscular HGB Conc 34.2 g/dL (30.0-36.0); Mean Corpuscular Volume 90.5 fl (80-94); Mean Platelet Volume 11.1 fL (7.4-10.4); Monocytes # 0.8 10^3/uL (0.2-0.9); Monocytes % 10.5 %; Neutrophils # 6.43 10^3/uL (1.8-7.7); Neutrophils % 80.8 %; Nucleated Red Blood Cells % 0 %; Platelet Count 255 10^3/cmm (130-400); Red Blood Count 3.68 10^6/uL (4.1-5.3); Red Cell Distribution Width 12.3 % (12.1-15.1); White Blood Count 7.9 10^3/uL (4.0-10.0)
[2021-12-06 17:23] LABS: Alanine Aminotransferase 16 U/L (0-41); Albumin Level 3.3 g/dL (3.5-5.2); Alkaline Phosphatase 96 IU/L (40-130); Anion Gap 16.9 (5-19); Aspartate Amino Transferase 25 U/L (0-40); Blood Urea Nitrogen 34 mg/dL (8-23); Carbon Dioxide 28 mmol/L (22-29); Chloride 100 mmol/L (98-107); Globulin 3.1 g/dL (1.3-4.6); Glucose 99 mg/dL (65-115); Lactate Dehydrogenase 532 U/L (135-225); Osmolality Calculated 302 mOsm/kg (285-295); Sodium 142 mmol/L (136-145); Thyroid Stimulating Hormone 4.11 uIU/mL (0.27-4.20); Total Bilirubin 0.6 mg/dL (0.15-1.2); Total Protein 6.4 g/dL (6.6-8.7)
[2021-12-06 18:11] LABS: Potassium 2.9 mmol/L (3.5-5.1)
[2021-12-09 11:35] VITALS: BP 154/59; PULSE 70; RESP 16; TEMP 36.9; O2SAT 97
[2021-12-09] MEDS: sodium chlor 0.9% + KCl 40 mEq 40 MEQ/1,000 ML BAG 250 MEQ IV (11:45)
[2021-12-09 16:10] VITALS: BP 183/68; PULSE 86; RESP 18; TEMP 37.3; O2SAT 97
--- NOTE | 2021-12-09 16:28 | PC.NURSE ---
Patient sent to [facility] floor direct admit to room 262 via wheelchair, report given to Izabela MEJÍA. Assisted to bed and no other needs at this time.
[2021-12-23 08:32] LABS: Basophils % 0.1 %; Eosinophils % 0.1 %; Hematocrit 31.4 % (42.0-52.0); Hemoglobin 10.6 g/dL (11.7-16.6); Lymphocytes # 0.4 10^3/uL (0.8-4.8); Lymphocytes % 3.1 %; Mean Corpuscular HGB Conc 33.8 g/dL (30.0-36.0); Mean Corpuscular Hemoglobin 31.3 pg (28.0-34.0); Mean Corpuscular Volume 92.6 fl (80-94); Mean Platelet Volume 10.7 fL (7.4-10.4); Monocytes # 0.6 10^3/uL (0.2-0.9); Monocytes % 4.7 %; Neutrophils # 11.07 10^3/uL (1.8-7.7); Neutrophils % 90.9 %; Nucleated Red Blood Cells % 0 %; Platelet Count 149 10^3/cmm (130-400); Red Blood Count 3.39 10^6/uL (4.1-5.3); Red Cell Distribution Width 13.8 % (12.1-15.1); White Blood Count 12.2 10^3/uL (4.0-10.0)
[2021-12-23 08:54] LABS: Alanine Aminotransferase 16 U/L (0-41); Albumin Level 3.5 g/dL (3.5-5.2); Alkaline Phosphatase 94 IU/L (40-130); Anion Gap 13.2 (5-19); Aspartate Amino Transferase 13 U/L (0-40); Blood Urea Nitrogen 23 mg/dL (8-23); Calcium 8.7 mg/dL (8.5-10.5); Carbon Dioxide 25 mmol/L (22-29); Chloride 102 mmol/L (98-107); Globulin 2.2 g/dL (1.3-4.6); Glucose 139 mg/dL (65-115); Lactate Dehydrogenase 337 U/L (135-225); Osmolality Calculated 288 mOsm/kg (285-295); Potassium 4.2 mmol/L (3.5-5.1); Sodium 136 mmol/L (136-145); Total Bilirubin 0.4 mg/dL (0.15-1.2); Total Protein 5.7 g/dL (6.6-8.7); Uric Acid 4.3 mg/dL (3.4-7.0)
== END 2021-12-23 23:59 | disposition home or self-care (01) ==
PROVIDERS: PCP Family Medicine; Visit Provider Internal Medicine Medical Oncology
DX: C83.39 Diffuse large B-cell lymphoma, extranodal and solid organ sites (principal)
CPT/HCPCS: 36591; 73000; 73020; 80053; 83615; 84443; 84550; 85025; 96365; 96366; 99204; 99215; J2430; J7040

== ENCOUNTER → 2022-01-03 08:07 | Outpatient (BNVA) | payer OTHER, MEDICARE, SELFPAY | PROVIDERS: PCP Family Medicine; Visit Provider Internal Medicine Medical Oncology | DX: Z51.11 Encounter for antineoplastic chemotherapy (principal); C83.39 Diffuse large B-cell lymphoma, extranodal and solid organ sites; N28.89 Other specified disorders of kidney and ureter; E83.52 Hypercalcemia; Z79.52 Long term (current) use of systemic steroids; Z79.899 Other long term (current) drug therapy | CPT/HCPCS: 99214; 99215 ==

== ENCOUNTER 2022-01-05 09:30 | Oncology outpatient (recurring) (ONCR) | payer OTHER, MEDICARE, SELFPAY ==
[2022-01-03] VITALS (8 sets, daily range): BP systolic 119–152; BP diastolic 66–78; PULSE 59–79; RESP 14–16; TEMP 36.3–36.4; O2SAT 96–98; BMI 27.0
[2022-01-03 08:37] LABS: Basophils % 0.1 %; Eosinophils % 0.3 %; Hematocrit 32.9 % (42.0-52.0); Hemoglobin 11.2 g/dL (11.7-16.6); Lymphocytes # 0.4 10^3/uL (0.8-4.8); Lymphocytes % 4.4 %; Mean Corpuscular Hemoglobin 31.9 pg (28.0-34.0); Mean Corpuscular Volume 93.7 fl (80-94); Mean Platelet Volume 10.1 fL (7.4-10.4); Monocytes # 0.5 10^3/uL (0.2-0.9); Monocytes % 5.7 %; Neutrophils # 7.65 10^3/uL (1.8-7.7); Neutrophils % 88.7 %; Nucleated Red Blood Cells % 0.2 %; Platelet Count 142 10^3/cmm (130-400); Red Blood Count 3.51 10^6/uL (4.1-5.3); Red Cell Distribution Width 15.1 % (12.1-15.1); White Blood Count 8.6 10^3/uL (4.0-10.0)
[2022-01-03 09:09] LABS: Alanine Aminotransferase 15 U/L (0-41); Albumin Level 3.9 g/dL (3.5-5.2); Alkaline Phosphatase 120 IU/L (40-130); Anion Gap 15.7 (5-19); Aspartate Amino Transferase 15 U/L (0-40); Blood Urea Nitrogen 24 mg/dL (8-23); Calcium 8.5 mg/dL (8.5-10.5); Carbon Dioxide 23 mmol/L (22-29); Chloride 100 mmol/L (98-107); Globulin 2.1 g/dL (1.3-4.6); Glucose 138 mg/dL (65-115); Immunoglobulin IGG 601 mg/dL (700-1600); Lactate Dehydrogenase 333 U/L (135-225); Osmolality Calculated 286 mOsm/kg (285-295); Potassium 3.7 mmol/L (3.5-5.1); Sodium 135 mmol/L (136-145); Total Bilirubin 0.5 mg/dL (0.15-1.2)
[2022-01-03 09:39] LABS: Hepatitis A Antibody IgM Non-Reactive (Nonreactive); Hepatitis B Surface AB 111.6 (11.5-1000); Hepatitis B Surface Antigen Non-Reactive (Nonreactive); Hepatitis C Virus Antibody Non-Reactive (Nonreactive)
[2022-01-03] MEDS: acetaminophen 325 mg Tablet 650 MG PO (10:02)
[2022-01-03] MEDS: sodium chloride 0.9% 250 ML 100 ML IV (10:02)
[2022-01-03] MEDS: ondansetron 2 mg/ML SDV 2 mL 8 MG IVP (10:04)
[2022-01-03] MEDS: famotidine 20 mg/2 mL INJ IVP (10:08)
[2022-01-03] MEDS: diphenhydrAMINE 50 mg/mL SDV 1mL 25 MG IVP (10:10)
[2022-01-03 10:32] LABS: Hepatitis B Core AB, Total Reactive (Nonreactive)
[2022-01-03] MEDS: rituximab-abbs 500 MG, rituximab-abbs 350 MG in sodium chloride 0.9% 500 ML 34.4 MG IV (10:41)
[2022-01-04 08:10] VITALS: BP 149/61; PULSE 69; RESP 16; TEMP 37; O2SAT 99
[2022-01-04] MEDS: sodium chloride 0.9% 250 ML 100 ML IV (09:32)
[2022-01-04] MEDS: ondansetron 2 mg/ML SDV 2 mL 8 MG IVP (09:34)
[2022-01-04 11:15] VITALS: BP 125/52; PULSE 57; RESP 16; TEMP 36.4; O2SAT 99
[2022-01-05 09:19] VITALS: BP 154/56; PULSE 72; RESP 16; TEMP 36.6; O2SAT 97
[2022-01-05] MEDS: palonosetron 0.25 mg/5 mL SDV IVP (09:27)
[2022-01-05] MEDS: sodium chloride 0.9% 250 ML 100 ML IV (09:27)
[2022-01-05] MEDS: pegfilgrastim 6 mg/0.6 mL Kit (onpro) SUBCUT (11:04)
[2022-01-05 11:06] VITALS: BP 165/60; PULSE 64; RESP 16; TEMP 36.4; O2SAT 98
== END 2022-01-05 23:59 | disposition home or self-care (01) ==
PROVIDERS: PCP Family Medicine; Visit Provider Internal Medicine Medical Oncology
DX: C83.39 Diffuse large B-cell lymphoma, extranodal and solid organ sites (principal); Z51.11 Encounter for antineoplastic chemotherapy
CPT/HCPCS: 80053; 82784; 83615; 85025; 86705; 86706; 86709; 86803; 87340; 96367; 96375; 96377; 96413; 96415; 96417; 99215; J1100; J1200; J2405; J2469; J2506; J3490; J7030; J7040; J7050; J9070; J9181; J9370; Q5115

== ENCOUNTER 2022-01-08 03:52 | Emergency (ER) | payer OTHER, MEDICARE, SELFPAY ==
[2022-01-08] VITALS (10 sets, daily range): BP systolic 116–163; BP diastolic 65–69; PULSE 75–109; RESP 10–20; TEMP 37.1; O2SAT 97–99; BMI 27.8
--- NOTE | 2022-01-08 04:39 | CTR_ITS ---
PROCEDURE INFORMATION: Exam: CT Abdomen And Pelvis With Contrast Exam date and time: 01/08/2022 5:54 AM Age: 81 years old Clinical indication: Constipation; Additional info: Abdominal pain, vomiting TECHNIQUE: Imaging protocol: Computed tomography of the abdomen and pelvis with contrast. Radiation optimization: All CT scans at this facility use at least one of these dose optimization techniques: automated exposure control; mA and/or kV adjustment per patient size (includes targeted exams where dose is matched to clinical indication); or iterative reconstruction. Contrast material: OMNI 350; Contrast volume: 90 ml; Contrast route: INTRAVENOUS (IV); COMPARISON: [place] [id number] 12/09/2021 CT abdomen and pelvis with contrast 03/17/21 RADIATION DOSE METRICS: Total DLP (mGy-cm): 1255.63 FINDINGS: Lungs: Interstitial prominence. Termination of central venous catheter in the right atrium. Liver: Subcentimeter nodular hypodensities in the liver, which are stable when correlating with previous CT dated 03/17/21. Gallbladder and bile ducts: Unremarkable gallbladder. Pancreas: No pancreatic mass or ductal dilatation. Spleen: No splenomegaly. Adrenal glands: Unremarkable adrenals. Kidneys and ureters: Stable 8 mm nodular hypodensity in the lateral right kidney. 2.1 cm right lower pole cyst. No hydronephrosis. Stomach and bowel: Gastroduodenal wall thickening with infiltration of paraduodenal fat, in a pattern of gastroduodenitis. Small bowel dilatation without a focal transition zone. Prominent stool, in a pattern suggesting constipation. Appendix: No acute appendicitis. Intraperitoneal space: Small quantity of intraperitoneal fluid in the right upper quadrant. Vasculature: Vascular calcification. No abdominal aortic aneurysm. Lymph nodes: Subcentimeter lymph nodes. Urinary bladder: Bladder wall thickening with multiple dependent bladder calculi, the largest measuring 5 mm. Reproductive: Markedly enlarged prostate producing extrinsic compression of the bladder base with loss of normal fascial planes. Bones/joints: Osseous metastases, including a 4.7 x 4.2 by 5.0 cm ovoid lytic lesion in their posteromedial aspect of the right ilium, abutting the right sacroiliac joint. Degenerative change and disc bulging. Soft tissues: Small fat containing umbilical hernia. Subcutaneous edema. CT/CT abdomen pelvis w con* [id number] IMPRESSION: 1. Gastroduodenal wall thickening with infiltration of paraduodenal fat, in a pattern of gastroduodenitis. 2. Bladder wall thickening with multiple dependent bladder calculi, the largest measuring 5 mm. 3. Osseous metastases, including a 4.7 x 4.2 by 5.0 cm ovoid lytic lesion in their posteromedial aspect of the right ilium, abutting the right sacroiliac joint. 4. Additional findings as described above.
[2022-01-08] MEDS: sodium chloride 0.9% 1,000 ML 999 ML IV (05:00)
[2022-01-08] MEDS: ondansetron 2 mg/ML SDV 2 mL 4 MG IVP (05:00)
[2022-01-08] MEDS: ketorolac 30 mg/mL INJ 15 MG IVP (05:03)
[2022-01-08 05:10] LABS: Basophils # 0.2 10^3/uL (0.0-0.1); Basophils % 0.9 %; Hematocrit 24.4 % (42.0-52.0); Hemoglobin 8.6 g/dL (11.7-16.6); Lymphocytes # 0.1 10^3/uL (0.8-4.8); Lymphocytes % 0.7 %; Mean Corpuscular HGB Conc 35.2 g/dL (30.0-36.0); Mean Corpuscular Hemoglobin 32.2 pg (28.0-34.0); Mean Corpuscular Volume 91.4 fl (80-94); Mean Platelet Volume 10.8 fL (7.4-10.4); Monocytes # 0.2 10^3/uL (0.2-0.9); Monocytes % 1.1 %; Neutrophils # 12.93 10^3/uL (1.8-7.7); Neutrophils % 72.1 %; Nucleated Red Blood Cells % 0 %; Platelet Count 93 10^3/cmm (130-400); Red Blood Count 2.67 10^6/uL (4.1-5.3); Red Cell Distribution Width 14.9 % (12.1-15.1); White Blood Count 17.9 10^3/uL (4.0-10.0)
[2022-01-08 05:34] LABS: Alanine Aminotransferase 15 U/L (0-41); Albumin Level 3.3 g/dL (3.5-5.2); Alkaline Phosphatase 91 IU/L (40-130); Anion Gap 14.3 (5-19); Aspartate Amino Transferase 13 U/L (0-40); Blood Urea Nitrogen 41 mg/dL (8-23); Calcium 8.4 mg/dL (8.5-10.5); Carbon Dioxide 24 mmol/L (22-29); Chloride 98 mmol/L (98-107); Globulin 1.4 g/dL (1.3-4.6); Glucose 131 mg/dL (65-115); Lipase 25 U/L (13-60); Osmolality Calculated 286 mOsm/kg (285-295); Potassium 4.3 mmol/L (3.5-5.1); Sodium 132 mmol/L (136-145); Total Bilirubin 0.6 mg/dL (0.15-1.2); Total Protein 4.7 g/dL (6.6-8.7)
[2022-01-08 05:42] LABS: Slide Review Slide Review Perform
--- NOTE | 2022-01-08 06:09 | W.ED.ABDPA2 ---
Documented by User: Milan Yun DO 01/09/22 15:40 HPI - Abdominal Pain General: Chief Complaint: Abdominal Pain Stated Complaint: abd pain Time Seen by Provider: 01/08/22 04:18 Source: patient and family History of Present Illness: 81-year-old male with a history of lymphoma. He had his third chemo induction on Monday. Since that time, he has developed vomiting, and increasing belly pain. He has not been able to hold solid food down, and very little liquid. He has had increasing generalized weakness because of this. There is no report of fever. He has had some diarrhea as well. No blood in the stool MD elicited complaint: abdominal pain Pertinent past history: other Onset (ago): hour(s) Pain Consistency: constant Location: Diffuse Severity: moderate Quality: cramping and aching Migration to: no migration Associated Symptoms: Reports nausea, poor appetite and vomiting; Denies chills, fever(s), hematochezia and hematemesis Review of Systems Const: Denies: fever(s) or chills Card: Denies: chest pain Resp: Denies: dyspnea or productive cough GI: Reports: abdominal pain, nausea and vomiting; Denies: hematemesis or hematochezia PFSH ED PFSH: Medical History BPH (benign prostatic hyperplasia) 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 Decubitus skin ulcer Diffuse large B-cell lymphoma of extranodal site Fracture of clavicle, left, closed Hallux rigidus of both feet History of fracture of clavicle Peripheral neuropathy Protein-energy malnutrition Surgical History History of cataract surgery Bilateral cataract excisions Hx of repair of rotator cuff S/P arthroscopic surgery of left knee S/P lymph node biopsy (11/17/21) Core needle biopsy of left supraclavicular lymph node Status post surgical removal of malignant neoplasm of skin Family History Father Cancer Brother Diabetes Denies family history of CAD (coronary artery disease) Clotting disorder Dementia Hyperlipidemia Psychiatric illness Chronic kidney disease (CKD) Suicide Anesthesia complication Bleeding disorder Family history of premature coronary artery disease Lung disease Hypertension Stroke Social History Smoking and tobacco status: former smoker Quit status (tobacco): has quit using tobacco Second hand smoke exposure: Yes Smoking risk assessment/counseling performed?: Yes Alcohol intake: never Desire information about alcohol rehabilitation?: No Counseling given: No Desire information about substance/drug rehabilitation?: No Counseling given: No Adopted: No Caregiver/support person: No Lives independently: Yes Household members: spouse Housing: House Marital status: Current occupational status: retired Current occupational exposures/hazards: No History of recent travel: No Current gender identity: Male Physical Exam Const: GENERAL APPEARANCE: cooperative, well kempt, ill appearing (mildly) and frail appearing (mildly) HENMT: COMMON NORMALS: normocephalic and Normal external nose present HEAD & SCALP: normocephalic FACE & SINUS: normal facial exam and face symmetric NOSE: Normal external nose present Eye: COMMON NORMALS: Equal, round and reactive pupils present and EOMs intact bilaterally PUPIL: Yes Equal, round and reactive pupils present Neck/C-Spine: GENERAL: Yes trachea midline Chest: CHEST: Yes Symmetrical chest wall rise Resp: COMMON NORMALS: normal respiratory effort, No use of accessory muscles and clear to auscultation bilaterally AUSCULTATION: clear to auscultation bilaterally Cardio: COMMON NORMALS: regular rate and regular rhythm RATE: regular rate RHYTHM: regular rhythm GI: COMMON NORMALS: Soft to palpation INSPECTION: Yes abdominal distension (mild) PALPATION: Yes Soft to palpation, Yes Tenderness to palpation present (GI) (diffuse) and No Guarding due to palpation present (GI) Extremity: COMMON NORMALS: normal to inspection Neuro: MORRIS COMA SCALE: document GCS findings Garrison coma scale eye opening: Spontaneous Morris coma scale verbal response: Orientated Garrison coma scale motor response: Obey commands Garrison coma scale total score: 15 Psych: APPEARANCE: Yes well kempt Course Vital Signs: Vital signs: Vital Signs Temperature 98.7 F 01/08/22 04:01 Pulse Rate 83 01/08/22 08:50 Respiratory Rate 17 01/08/22 08:50 Blood Pressure 163/69 01/08/22 09:00 Pulse Oximetry 98 01/08/22 08:50 MDM - Abdominal Pain Medical Decision Making 81-year-old gentleman with lymphoma. He presents with vomiting, diarrhea, and generalized weakness with belly pain. His white blood cell count is 17.9 with 72% neutrophils. He is anemic with a hemoglobin of 8.6. His sodium is 132. He is given IV fluid bolus, antiemetics. CT scan of the belly is pending. He will be checked out to the next physician at shift change, who will follow up on CT findings. Lab Data : 01/08/22 05:04 01/08/22 05:04 Labs/Radiology: Radiology Impressions Abdomen/Pelvis CT 01/08/22 04:39 IMPRESSION: 1. Gastroduodenal wall thickening with infiltration of paraduodenal fat, in a pattern of gastroduodenitis. 2. Bladder wall thickening with multiple dependent bladder calculi, the largest measuring 5 mm. 3. Osseous metastases, including a 4.7 x 4.2 by 5.0 cm ovoid lytic lesion in their posteromedial aspect of the right ilium, abutting the right sacroiliac joint. 4. Additional findings as described above. Laboratory Results WBC 17.9 10^3/uL (4.0-10.0) H 01/08/22 05:04 RBC 2.67 10^6/uL (4.1-5.3) L 01/08/22 05:04 Hgb 8.6 g/dL (11.7-16.6) L 01/08/22 05:04 Hct 24.4 % (42.0-52.0) L 01/08/22 05:04 MCV 91.4 fl (80-94) 01/08/22 05:04 MCH 32.2 pg (28.0-34.0) 01/08/22 05:04 MCHC 35.2 g/dL (30.0-36.0) 01/08/22 05:04 RDW 14.9 % (12.1-15.1) 01/08/22 05:04 Plt Count 93 10^3/cmm (130-400) L 01/08/22 05:04 MPV 10.8 fL (7.4-10.4) H 01/08/22 05:04 Neut % (Auto) 72.1 % 01/08/22 05:04 Lymph % (Auto) 0.7 % 01/08/22 05:04 [place] % (Auto) 1.1 % 01/08/22 05:04 Eos % (Auto) 0.0 % 01/08/22 05:04 Baso % (Auto) 0.9 % 01/08/22 05:04 Neut # (Auto) 12.93 10^3/uL (1.8-7.7) H 01/08/22 05:04 Lymph # (Auto) 0.1 10^3/uL (0.8-4.8) L 01/08/22 05:04 [place] # (Auto) 0.2 10^3/uL (0.2-0.9) 01/08/22 05:04 Eos # (Auto) 0.0 10^3/uL (0.0-0.8) 01/08/22 05:04 Baso # (Auto) 0.2 10^3/uL (0.0-0.1) H 01/08/22 05:04 Nucleated RBC % (auto) 0 % 01/08/22 05:04 Nucleated RBCs # 0.0 /100WBC 01/08/22 05:04 Sodium 132 mmol/L (136-145) L 01/08/22 05:04 Potassium 4.3 mmol/L (3.5-5.1) 01/08/22 05:04 Chloride 98 mmol/L (98-107) 01/08/22 05:04 Carbon Dioxide 24 mmol/L (22-29) 01/08/22 05:04 Anion Gap 14.3 (5-19) 01/08/22 05:04 BUN 41 mg/dL (8-23) H 01/08/22 05:04 Creatinine 0.9 mg/dL (0.7-1.2) 01/08/22 05:04 GFR Calculation Not Reportable 01/08/22 05:04 Glucose 131 mg/dL (65-115) H 01/08/22 05:04 Calculated Osmolality 286 mOsm/kg (285-295) 01/08/22 05:04 Calcium 8.4 mg/dL (8.5-10.5) L 01/08/22 05:04 Total Bilirubin 0.6 mg/dL (0.15-1.2) 01/08/22 05:04 AST 13 U/L (0-40) 01/08/22 05:04 ALT 15 U/L (0-41) 01/08/22 05:04 Alkaline Phosphatase 91 IU/L (40-130) 01/08/22 05:04 C-Reactive Protein 3.0 mg/L (0.0-4.9) 01/08/22 05:04 Total Protein 4.7 g/dL (6.6-8.7) L 01/08/22 05:04 Albumin 3.3 g/dL (3.5-5.2) L 01/08/22 05:04 Globulin 1.4 g/dL (1.3-4.6) 01/08/22 05:04 Lipase 25 U/L (13-60) 01/08/22 05:04 Discharge Plan Discharge Patient Disposition: Home Clinical Impression: Gastritis and duodenitis, Diffuse large B-cell lymphoma of extranodal site Condition: Stable Prescriptions: New Protonix 40 mg tablet,delayed release (DR/EC) 40 mg PO BEDTIME Qty: 14 0RF No Action tamsulosin 0.4 mg capsule 0.4 mg PO QPM 0RF (DME) Sole Supports Qty: 1 0RF Rx Instructions: As directed (DME) carbon fiber See Rx Instructions .ROUTE .MEDSUPPLY Qty: 1 0RF Rx Instructions: As directed (DME) Gel toe sleeve, right hallux See Rx Instructions .Route .MEDSUPPLY Qty: 1 0RF Rx Instructions: As directed Centrum Silver Men 300-600-300 mcg tablet 1 tab PO DAILY 0RF dexamethasone 4 mg tablet 4 mg PO DAILY Qty: 30 0RF doxycycline hyclate 100 mg capsule PO 0RF allopurinol 300 mg tablet 300 mg PO DAILY Qty: 30 3RF Diflucan 100 mg tablet 100 mg PO DAILY Qty: 90 2RF Rx Instructions: For fungal infection prevention. prochlorperazine maleate [Compazine] 10 mg tablet 10 mg PO Q4H PRN (Reason: Mild Nausea) Qty: 30 3RF Bactrim DS 800-160 mg tablet 1 tab PO DAILY Qty: 24 5RF Rx Instructions: For infection prevention take on Monday, Monday and Monday while on chemo and for 3 months after completion amlodipine 5 mg tablet 5 mg PO DAILY Qty: 90 3RF folic acid 1 mg tablet 1 mg PO QPM Qty: 90 3RF prednisone 50 mg tablet See Rx Instructions .ROUTE .COMPLEX 21 Days Qty: 10 0RF Rx Instructions: Take 100 mg (2 tablets) orally on days 1 through 5 of treatment. valacyclovir 500 mg tablet 500 mg PO BID Qty: 60 5RF Rx Instructions: Continue 3 months post treatment for prevention of viral infection. olanzapine 5 mg Tablet 5 mg PO QPM Qty: 30 3RF Rx Instructions: Take for 5 days post chemo. lorazepam 1 mg Tablet 0.5 - 1 mg PO Q6H PRN (Reason: Severe Nausea) Qty: 30 3RF docusate sodium [Colace] 100 mg capsule 100 - 200 mg PO QPM 0RF acetaminophen 500 mg Tablet 500 mg PO Q4H PRN (Reason: Pain) 0RF Advil PM 200-38 mg Tablet 1 tab PO BEDTIME 0RF Manuka Honey 100 % Gel 1 ea TOPICAL DAILY 0RF magnesium hydroxide [Milk of Magnesia] 400 mg/5 mL Suspension 30 ml PO DAILY Qty: 300 0RF ferrous gluconate 324 mg (37.5 mg iron) Tablet 324 mg PO BIDWM Qty: 60 0RF lactulose 10 gram/15 mL solution 15 ml PO DAILY PRN (Reason: Constipation) Qty: 300 0RF Discharge Orders: Discharge ED (Routine); Ordered 01/08/22 Ordered By: Chevy Posada Referrals: Robert Floyd MD [Primary Care Provider] - Discharge Diet: Advance as tolerated Discharge Activity: Increase activity as tolerated and Use walker/crutches as instructed Patient Instructions: Opioid Safety Activity Restrictions/Additional Instructions: Continue all your usual medications. We have provided you a pill to take for the next 2 weeks to help reduce inflammation and increased acid production which is inflaming her stomach lining. Make sure you to drink small amounts of water, sports drinks frequently throughout the day. Follow-up with your oncologist as scheduled. You may return to this emergency department at anytime for any increasing symptoms or other concerns. 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 Decubitus skin ulcer Diffuse large B-cell lymphoma of extranodal site Fracture of clavicle, left, closed Hallux rigidus of both feet History of fracture of clavicle Peripheral neuropathy Protein-energy malnutrition Surgical History History of cataract surgery Bilateral cataract excisions Hx of repair of rotator cuff S/P arthroscopic surgery of left knee S/P lymph node biopsy (11/17/21) Core needle biopsy of left supraclavicular lymph node Status post surgical removal of malignant neoplasm of skin Family History Father Cancer Brother Diabetes Denies family history of CAD (coronary artery disease) Clotting disorder Dementia Hyperlipidemia Psychiatric illness Chronic kidney disease (CKD) Suicide Anesthesia complication Bleeding disorder Family history of premature coronary artery disease Lung disease Hypertension Stroke Social History Smoking and tobacco status: former smoker Quit status (tobacco): has quit using tobacco Second hand smoke exposure: Yes Smoking risk assessment/counseling performed?: Yes Alcohol intake: never Desire information about alcohol rehabilitation?: No Counseling given: No Desire information about substance/drug rehabilitation?: No Counseling given: No Adopted: No Caregiver/support person: No Lives independently: Yes Household members: spouse Housing: House Marital status: Current occupational status: retired Current occupational exposures/hazards: No History of recent travel: No Current gender identity: Male Course Reevaluation(s): Reevaluation #1: I assumed care of this patient from Dr. Yun pending imaging and additional work-up. I reviewed the patient's history with him and his spouse. He has lymphoma that was diagnosed recently and he received his first round of chemotherapy on Monday. He apparently is on a bowel regimen and states that they want him to have a bowel movement on a daily basis which is not been his pattern all his life. He states that since returning home on Monday evening he has tried to eat but has abdominal cramping and pain when he tries to eat. He states he has had a small bowel movement 2 days ago but it was hard. He denies any fevers or chills or other constitutional complaints at this time. Time: 06:00 Reevaluation #2: Still awaiting final CT read from radiology. I did perform a rectal examination on the patient that there was no stool within the examining fingers reach. Good rectal tone. Time: 08:05 Reevaluation #3: Reviewed CT result. Consistent with thickening likely due to his repetitive vomiting he had after chemo. No evidence of obstruction or other worrisome condition at this time. He did receive IV fluid hydration as well as he is able to take oral fluids. We will go ahead and place him on a PPI for the next 2 weeks to see if we can give him some relief. He has drinking some fluids in the emergency department. We discussed expected course and plan of care and return precautions with both he and spouse. Time: 08:38 Vital Signs: Vital signs: Vital Signs Temperature 98.7 F 01/08/22 04:01 Pulse Rate 83 01/08/22 08:50 Respiratory Rate 17 01/08/22 08:50 Blood Pressure 163/69 01/08/22 09:00 Pulse Oximetry 98 01/08/22 08:50 MDM - Abdominal Pain Medical Records I reviewed the patient's medical records. Reviewed oncology note from 03 January regarding his lymphoma and treatment plan. Lab Data I reviewed the patient's lab results. : 01/08/22 05:04 01/08/22 05:04 Labs/Radiology: Radiology Impressions Abdomen/Pelvis CT 01/08/22 04:39 IMPRESSION: 1. Gastroduodenal wall thickening with infiltration of paraduodenal fat, in a pattern of gastroduodenitis. 2. Bladder wall thickening with multiple dependent bladder calculi, the largest measuring 5 mm. 3. Osseous metastases, including a 4.7 x 4.2 by 5.0 cm ovoid lytic lesion in their posteromedial aspect of the right ilium, abutting the right sacroiliac joint. 4. Additional findings as described above. Laboratory Results WBC 17.9 10^3/uL (4.0-10.0) H 01/08/22 05:04 RBC 2.67 10^6/uL (4.1-5.3) L 01/08/22 05:04 Hgb 8.6 g/dL (11.7-16.6) L 01/08/22 05:04 Hct 24.4 % (42.0-52.0) L 01/08/22 05:04 MCV 91.4 fl (80-94) 01/08/22 05:04 MCH 32.2 pg (28.0-34.0) 01/08/22 05:04 MCHC 35.2 g/dL (30.0-36.0) 01/08/22 05:04 RDW 14.9 % (12.1-15.1) 01/08/22 05:04 Plt Count 93 10^3/cmm (130-400) L 01/08/22 05:04 MPV 10.8 fL (7.4-10.4) H 01/08/22 05:04 Neut % (Auto) 72.1 % 01/08/22 05:04 Lymph % (Auto) 0.7 % 01/08/22 05:04 [place] % (Auto) 1.1 % 01/08/22 05:04 Eos % (Auto) 0.0 % 01/08/22 05:04 Baso % (Auto) 0.9 % 01/08/22 05:04 Neut # (Auto) 12.93 10^3/uL (1.8-7.7) H 01/08/22 05:04 Lymph # (Auto) 0.1 10^3/uL (0.8-4.8) L 01/08/22 05:04 [place] # (Auto) 0.2 10^3/uL (0.2-0.9) 01/08/22 05:04 Eos # (Auto) 0.0 10^3/uL (0.0-0.8) 01/08/22 05:04 Baso # (Auto) 0.2 10^3/uL (0.0-0.1) H 01/08/22 05:04 Nucleated RBC % (auto) 0 % 01/08/22 05:04 Nucleated RBCs # 0.0 /100WBC 01/08/22 05:04 Sodium 132 mmol/L (136-145) L 01/08/22 05:04 Potassium 4.3 mmol/L (3.5-5.1) 01/08/22 05:04 Chloride 98 mmol/L (98-107) 01/08/22 05:04 Carbon Dioxide 24 mmol/L (22-29) 01/08/22 05:04 Anion Gap 14.3 (5-19) 01/08/22 05:04 BUN 41 mg/dL (8-23) H 01/08/22 05:04 Creatinine 0.9 mg/dL (0.7-1.2) 01/08/22 05:04 GFR Calculation Not Reportable 01/08/22 05:04 Glucose 131 mg/dL (65-115) H 01/08/22 05:04 Calculated Osmolality 286 mOsm/kg (285-295) 01/08/22 05:04 Calcium 8.4 mg/dL (8.5-10.5) L 01/08/22 05:04 Total Bilirubin 0.6 mg/dL (0.15-1.2) 01/08/22 05:04 AST 13 U/L (0-40) 01/08/22 05:04 ALT 15 U/L (0-41) 01/08/22 05:04 Alkaline Phosphatase 91 IU/L (40-130) 01/08/22 05:04 C-Reactive Protein 3.0 mg/L (0.0-4.9) 01/08/22 05:04 Total Protein 4.7 g/dL (6.6-8.7) L 01/08/22 05:04 Albumin 3.3 g/dL (3.5-5.2) L 01/08/22 05:04 Globulin 1.4 g/dL (1.3-4.6) 01/08/22 05:04 Lipase 25 U/L (13-60) 01/08/22 05:04 Discharge Plan Discharge Patient Disposition: Home Clinical Impression: Gastritis and duodenitis, Diffuse large B-cell lymphoma of extranodal site Condition: Stable Prescriptions: New Protonix 40 mg tablet,delayed release (DR/EC) 40 mg PO BEDTIME Qty: 14 0RF No Action tamsulosin 0.4 mg capsule 0.4 mg PO QPM 0RF (DME) Sole Supports Qty: 1 0RF Rx Instructions: As directed (DME) carbon fiber See Rx Instructions .ROUTE .MEDSUPPLY Qty: 1 0RF Rx Instructions: As directed (DME) Gel toe sleeve, right hallux See Rx Instructions .Route .MEDSUPPLY Qty: 1 0RF Rx Instructions: As directed Centrum Silver Men 300-600-300 mcg tablet 1 tab PO DAILY 0RF dexamethasone 4 mg tablet 4 mg PO DAILY Qty: 30 0RF doxycycline hyclate 100 mg capsule PO 0RF allopurinol 300 mg tablet 300 mg PO DAILY Qty: 30 3RF Diflucan 100 mg tablet 100 mg PO DAILY Qty: 90 2RF Rx Instructions: For fungal infection prevention. prochlorperazine maleate [Compazine] 10 mg tablet 10 mg PO Q4H PRN (Reason: Mild Nausea) Qty: 30 3RF Bactrim DS 800-160 mg tablet 1 tab PO DAILY Qty: 24 5RF Rx Instructions: For infection prevention take on Monday, Monday and Monday while on chemo and for 3 months after completion amlodipine 5 mg tablet 5 mg PO DAILY Qty: 90 3RF folic acid 1 mg tablet 1 mg PO QPM Qty: 90 3RF prednisone 50 mg tablet See Rx Instructions .ROUTE .COMPLEX 21 Days Qty: 10 0RF Rx Instructions: Take 100 mg (2 tablets) orally on days 1 through 5 of treatment. valacyclovir 500 mg tablet 500 mg PO BID Qty: 60 5RF Rx Instructions: Continue 3 months post treatment for prevention of viral infection. olanzapine 5 mg Tablet 5 mg PO QPM Qty: 30 3RF Rx Instructions: Take for 5 days post chemo. lorazepam 1 mg Tablet 0.5 - 1 mg PO Q6H PRN (Reason: Severe Nausea) Qty: 30 3RF docusate sodium [Colace] 100 mg capsule 100 - 200 mg PO QPM 0RF acetaminophen 500 mg Tablet 500 mg PO Q4H PRN (Reason: Pain) 0RF Advil PM 200-38 mg Tablet 1 tab PO BEDTIME 0RF Manuka Honey 100 % Gel 1 ea TOPICAL DAILY 0RF magnesium hydroxide [Milk of Magnesia] 400 mg/5 mL Suspension 30 ml PO DAILY Qty: 300 0RF ferrous gluconate 324 mg (37.5 mg iron) Tablet 324 mg PO BIDWM Qty: 60 0RF lactulose 10 gram/15 mL solution 15 ml PO DAILY PRN (Reason: Constipation) Qty: 300 0RF Discharge Orders: Discharge ED (Routine); Ordered 01/08/22 Ordered By: Chevy Posada Referrals: Robert Floyd MD [Primary Care Provider] - Discharge Diet: Advance as tolerated Discharge Activity: Increase activity as tolerated and Use walker/crutches as instructed Patient Instructions: Opioid Safety Activity Restrictions/Additional Instructions: Continue all your usual medications. We have provided you a pill to take for the next 2 weeks to help reduce inflammation and increased acid production which is inflaming her stomach lining. Make sure you to drink small amounts of water, sports drinks frequently throughout the day. Follow-up with your oncologist as scheduled. You may return to this emergency department at anytime for any increasing symptoms or other concerns. Coding Level of Care Code ED Hair Spinning Machine Operator for Tanisha Begum
[2022-01-08] MEDS: iohexol 350 mg/mL 100 mL Btl IV (06:13)
--- NOTE | 2022-01-08 07:18 | PC.NURSE ---
WHILE AT BEDSIDE PT IS IN NAD. PT DENIES ANY FURTHER NEEDS.
[2022-01-08] MEDS: pantoprazole DR 40 mg Tablet PO (09:04)
== END 2022-01-08 09:18 | disposition home or self-care (01) ==
PROVIDERS: Emergency Provider Emergency Medicine; PCP Family Medicine
DX: K29.70 Gastritis, unspecified, without bleeding (principal); K29.80 Duodenitis without bleeding; C83.39 Diffuse large B-cell lymphoma, extranodal and solid organ sites; Z87.891 Personal history of nicotine dependence
CPT/HCPCS: 74177; 80053; 83690; 85025; 86140; 96374; 96375; 99285; J1642; J1885; J2405; J7030; Q9967

== ENCOUNTER 2022-01-11 15:29 | Inpatient (IN) | payer OTHER, MEDICARE, SELFPAY ==
[2022-01-11] VITALS (64 sets, daily range): BP systolic 118–175; BP diastolic 62–111; PULSE 93–130; RESP 8–35; TEMP 36.8; O2SAT 84–97; BMI 27.8
[2022-01-11] MEDS: ondansetron 2 mg/ML SDV 2 mL 4 MG IVP (16:09)
[2022-01-11] MEDS: sodium chloride 0.9% 1,000 ML 999 ML IV (16:09)
[2022-01-11] MEDS: morphine 4 mg/mL SDV 1 mL IVP (16:09)
[2022-01-11 16:22] LABS: Hematocrit 30.7 % (42.0-52.0); Hemoglobin 10.3 g/dL (11.7-16.6); Mean Corpuscular HGB Conc 33.6 g/dL (30.0-36.0); Mean Corpuscular Volume 95.3 fl (80-94); Mean Platelet Volume 11.9 fL (7.4-10.4); Platelet Count 83 10^3/cmm (130-400); Red Blood Count 3.22 10^6/uL (4.1-5.3); Red Cell Distribution Width 14.6 % (12.1-15.1); White Blood Count 2.9 10^3/uL (4.0-10.0)
--- NOTE | 2022-01-11 16:42 | W.ED.GENADLT ---
HPI - General Adult General: Chief complaint: ER Hold Stated complaint: possiable blood reaction Time Seen by Provider: 01/11/22 15:48 Source: patient Mode of arrival: ambulatory Limitations: no limitations History of Present Illness: 81-year-old male history history of lymphoma was transfused 2 units packed red blood cells [facility]. He seemed to do well the first few hours then began having severe significant back pain leg pain chest discomfort. As well as increasing shortness of breath on arrival here he is complaining of severe back and leg pain. He denies any vomiting denies any diarrhea. Chest pain is generalized. No radiation to the arms or neck. Onset (ago): hour(s) Location: chest, back, abdomen and lower extremity Severity: severe Quality: aching and constant Pain Consistency: constant Relieving factors: none Exacerbating factors: none Associated symptoms: Reports chest pain, diaphoresis and nausea; Deny confusion, cough, decreased appetite, dyspnea, fevers/chills, headache(s), malaise, rash, palpitations, seizures, short of breath, syncope, vomiting or weakness Treatments prior to arrival: none Review of Systems Const: Reports: diaphoresis; Denies: fever(s), chills, fatigue or malaise ENMT: Denies: throat pain, ear or mastoid pain, nasal discharge or nasal congestion Card: Reports: chest pain; Denies: palpitations or syncope Resp: Denies: dyspnea GI: Reports: nausea; Denies: abdominal pain or vomiting : Denies: flank pain, difficulty urinating, dysuria, urinary frequency or urinary urgency Musc: Reports: back pain and extremity pain Skin/Breast: Denies: rash Neuro: Denies: headache(s) or confusion PFSH ED PFSH: Medical History BPH (benign prostatic hyperplasia) 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 Decubitus skin ulcer Diffuse large B-cell lymphoma of extranodal site Fracture of clavicle, left, closed Hallux rigidus of both feet History of fracture of clavicle Peripheral neuropathy Protein-energy malnutrition Surgical History History of cataract surgery Bilateral cataract excisions Hx of repair of rotator cuff S/P arthroscopic surgery of left knee S/P lymph node biopsy (11/17/21) Core needle biopsy of left supraclavicular lymph node Status post surgical removal of malignant neoplasm of skin Family History Father Cancer Brother Diabetes Denies family history of CAD (coronary artery disease) Clotting disorder Dementia Hyperlipidemia Psychiatric illness Chronic kidney disease (CKD) Suicide Anesthesia complication Bleeding disorder Family history of premature coronary artery disease Lung disease Hypertension Stroke Social History Smoking and tobacco status: former smoker Quit status (tobacco): has quit using tobacco Second hand smoke exposure: Yes Smoking risk assessment/counseling performed?: Yes Alcohol intake: never Desire information about alcohol rehabilitation?: No Counseling given: No Desire information about substance/drug rehabilitation?: No Counseling given: No Adopted: No Caregiver/support person: No Lives independently: Yes Household members: spouse Housing: House Marital status: Current occupational status: retired Current occupational exposures/hazards: No History of recent travel: No Current gender identity: Male Course Vital Signs: Vital signs: Vital Signs Temperature 97.8 F 01/13/22 08:00 Pulse Rate 100 01/13/22 08:19 Respiratory Rate 16 01/13/22 08:00 Blood Pressure 135/75 01/13/22 08:00 Pulse Oximetry 95 01/13/22 08:19 MDM - General Adult Medical Decision Making Patient requiring 2 L by nasal cannula he has severe pain his bilirubin is elevated as well as his LDH. Other labs are pending of contacted certified medical biller for the lab to evaluate for transfusion reaction. Will admit discussed the hospitalist orders written Medical Records I reviewed the patient's medical records. Lab Data I reviewed the patient's lab results. : 01/13/22 06:24 01/13/22 06:24 Radiology Impressions Chest CTA 01/12/22 03:49 IMPRESSION: 1. No CTA evidence of pulmonary embolism, thoracic aortic aneurysm or thoracic aortic dissection. 2. Right internal jugular Port-A-Cath seen with tip in the deep right atrium. Recommend clinical assessment. 3. Mild bilateral lower lobe and inferior lingular atelectasis. Associated tiny bilateral pleural effusions. No CT evidence of interstitial lung disease. 4. Degenerative changes of the thoracic spine, as noted above. Unchanged nonspecific patchy sclerotic changes of the T11 vertebral body and visualized upper thoracic spine. Unchanged left posterior 11th rib fracture seen with associated lytic destructive changes. This may represent a pathologic fracture related to osseous metastatic disease. Bone scan may be performed for complete assessment. Cervical Spine CT 01/12/22 11:15 IMPRESSION: 1. Negative for fracture or dislocation. 2. Grade 1 anterolisthesis of C4 relative to C5 of 3.5 mm likely chronic and degenerative. 3. Multilevel degenerative disc space narrowing throughout the spine. Lumbar Spine CT 01/12/22 11:15 IMPRESSION: 1. 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 2. Patchy areas of mixed lytic and sclerotic bony lesions throughout the spine suggestive of metastatic disease. 3. Bilateral dependent atelectasis. 4. L1-L2 broad-based disc bulge with moderate spinal canal and bilateral narrowing. 5. L2-L3 broad-based disc bulge with mild spinal canal and moderate to severe bilateral foraminal narrowing. 6. L3-L4 broad-based disc bulge with mild spinal canal and moderate bilateral foraminal narrowing. 7. L4-L5 broad-based disc bulge with ligamentum flavum hypertrophy and productive degenerative changes resulting in moderate to severe spinal canal and moderate to severe bilateral foraminal narrowing. 8. L5/S1 productive degenerative changes resulting in severe bilateral foraminal narrowing. ADDENDUM: 01/12/22 1746 Please ignore under findings where it states no significant disc protrusion, spinal canal or neural foraminal narrowing at L4-L5. L4-L5 findings are described in the impression. Thoracic Spine CT 01/12/22 11:15 IMPRESSION: 1. Negative for fracture or dislocation. 2. Scattered areas of lytic and sclerotic suspected metastatic disease throughout the osseous structures. 3. Bilateral dependent atelectasis versus infiltrate. 4. Emphysematous changes. 5. Cardiomegaly. 6. Coronary artery atherosclerotic calcifications. Laboratory Results WBC 2.9 10^3/uL (4.0-10.0) L 01/11/22 16:02 Corrected WBC 2.7 10^3/cmm (4.8-10.8) L 01/11/22 16:02 RBC 3.22 10^6/uL (4.1-5.3) L 01/11/22 16:02 Hgb 10.3 g/dL (11.7-16.6) L 01/11/22 16:02 Hct 30.7 % (42.0-52.0) L 01/11/22 16:02 MCV 95.3 fl (80-94) H 01/11/22 16:02 MCH 32.0 pg (28.0-34.0) 01/11/22 16:02 MCHC 33.6 g/dL (30.0-36.0) 01/11/22 16:02 RDW 14.6 % (12.1-15.1) 01/11/22 16:02 Plt Count 83 10^3/cmm (130-400) L 01/11/22 16:02 MPV 11.9 fL (7.4-10.4) H 01/11/22 16:02 Total Counted 100 (0-100) 01/11/22 16:02 Atypical Lymphs % 7.0 % (0-5) H 01/11/22 16:02 Absolute Neutrophils 2.3 10^3/cmm (1.4-6.5) 01/11/22 16:02 Segmented Neutrophils 77 % 01/11/22 16:02 Abs Segm Neuts (Man) 2.2 10/cmm (1.6-7.1) 01/11/22 16:02 Band Neutrophils 1.0 % 01/11/22 16:02 Abs Band Neuts (Man) 0.0 10^3/cmm (0.0-1.2) 01/11/22 16:02 Absolute Lymphocytes 0.4 10^3/cmm (1.2-3.4) L 01/11/22 16:02 Lymphocytes (Manual) 7 % 01/11/22 16:02 Monocytes (Manual) 5.0 % 01/11/22 16:02 Absolute Monocytes 0.1 10^3/cmm (0.1-0.6) 01/11/22 16:02 Eosinophils (Manual) 1 % 01/11/22 16:02 Absolute Eosinophils 0.0 10^3/cmm (0.0-0.7) 01/11/22 16:02 Basophils (Manual) 0.0 % 01/11/22 16:02 Absolute Basophils 0.0 10^3/cmm (0.0-0.2) 01/11/22 16:02 Myelocytes 2.0 % 01/11/22 16:02 Nucleated RBCs 9.0 /100WBC (0-1) H 01/11/22 16:02 Platelet Estimate Decreased (Normal) 01/11/22 16:02 Haptoglobin 145.0 mg/L (30-200) 01/11/22 16:02 PT 13.80 SECONDS (12.1-14.9) 01/11/22 16:02 INR 1.03 (0.8-1.2) 01/11/22 16:02 APTT 20.2 SECONDS (23.9-36.7) L 01/11/22 16:02 Fibrinogen 233 mg/dL (174-498) 01/11/22 16:02 D-Dimer 2.56 ug/mIFEU (0-0.59) H 01/11/22 16:02 Sodium 130 mmol/L (136-145) L 01/11/22 16:02 Potassium 4.6 mmol/L (3.5-5.1) 01/11/22 16:02 Chloride 94 mmol/L (98-107) L 01/11/22 16:02 Carbon Dioxide 21 mmol/L (22-29) L 01/11/22 16:02 Anion Gap 19.6 (5-19) H 01/11/22 16:02 BUN 27 mg/dL (8-23) H 01/11/22 16:02 Creatinine 1.1 mg/dL (0.7-1.2) 01/11/22 16:02 GFR Calculation Not Reportable 01/11/22 16:02 Glucose 132 mg/dL (65-115) H 01/11/22 16:02 Calculated Osmolality 277 mOsm/kg (285-295) L 01/11/22 16:02 Calcium 8.3 mg/dL (8.5-10.5) L 01/11/22 16:02 Total Bilirubin 2.6 mg/dL (0.15-1.2) H 01/11/22 16:02 AST 23 U/L (0-40) 01/11/22 16:02 ALT 25 U/L (0-41) 01/11/22 16:02 Alkaline Phosphatase 109 IU/L (40-130) 01/11/22 16:02 Lactate Dehydrogenase 615 U/L (135-225) H 01/11/22 16:02 Total Protein 5.4 g/dL (6.6-8.7) L 01/11/22 16:02 Albumin 3.8 g/dL (3.5-5.2) 01/11/22 16:02 Globulin 1.6 g/dL (1.3-4.6) 01/11/22 16:02 Reaction Clerical Check suma Camejo 01/11/22 17:45 Pre-Trans Blood Type Ap 01/11/22 17:45 Pre-Trans Urine RBC Not noted 01/11/22 17:45 Post-Trans Blood Type A Positive 01/11/22 17:45 Post-Tx Visible Hemolys No hemolysis 01/11/22 17:45 Post-Trans GANESH Negative 01/11/22 17:45 Discharge Plan Discharge Patient Disposition: Admitted As Inpatient Admit Provider: Cristian Moran Clinical Impression: Transfusion reaction, Diffuse large B-cell lymphoma of extranodal site, Hypercalcemia Condition: Stable Coding Level of Care Code ED Scientific Database Curator for Tanisha Begum
[2022-01-11] MEDS: morphine 4 mg/mL SDV 1 mL 2 MG IVP ×2 (16:47→17:26)
[2022-01-11] MEDS: diphenhydrAMINE 50 mg/mL SDV 1mL IVP (16:48)
[2022-01-11 16:51] LABS: INR 1.03 (0.8-1.2); Partial Thromboplastin Time 20.2 SECONDS (23.9-36.7)
[2022-01-11 16:54] LABS: D Dimer 2.56 ug/mIFEU (0-0.59)
[2022-01-11 16:58] LABS: Alanine Aminotransferase 25 U/L (0-41); Albumin Level 3.8 g/dL (3.5-5.2); Alkaline Phosphatase 109 IU/L (40-130); Anion Gap 19.6 (5-19); Aspartate Amino Transferase 23 U/L (0-40); Blood Urea Nitrogen 27 mg/dL (8-23); Calcium 8.3 mg/dL (8.5-10.5); Carbon Dioxide 21 mmol/L (22-29); Chloride 94 mmol/L (98-107); Globulin 1.6 g/dL (1.3-4.6); Glucose 132 mg/dL (65-115); Osmolality Calculated 277 mOsm/kg (285-295); Potassium 4.6 mmol/L (3.5-5.1); Sodium 130 mmol/L (136-145); Total Bilirubin 2.6 mg/dL (0.15-1.2); Total Protein 5.4 g/dL (6.6-8.7)
[2022-01-11 17:24] LABS: Slide Review Slide Review Perform
[2022-01-11 17:25] LABS: Absolute Segmented Neutrophil 2.2 10/cmm (1.6-7.1); Corrected White Blood Count 2.7 10^3/cmm (4.8-10.8); Eosinophils 1 %; Lymphocytes 7 %; Lymphocytes Absolute 0.4 10^3/cmm (1.2-3.4); Monocytes Absolute 0.1 10^3/cmm (0.1-0.6); Segmented Neutrophils 77 %; Total Cells Counted 100 (0-100)
[2022-01-11 17:26] LABS: Absolute Neutrophil 2.3 10^3/cmm (1.4-6.5); Platelet Estimate Decreased (Normal)
[2022-01-11 18:07] LABS: Lactate Dehydrogenase 615 U/L (135-225)
--- NOTE | 2022-01-11 18:12 | PC.NURSE ---
PT PLACED ON CONTINUOUS NIBP, SPO2, AND CM
--- NOTE | 2022-01-11 18:15 | P.HP_ITS ---
Providers/Chief Complaint Primary Care Provider: Robert Floyd MD Chief Complaint: possiable blood reaction History of Present Illness 81 year old male with past medical history of diffuse B-cell lymphoma with bony metastasis , currently on chemotherapy, chemotherapy received last Monday, chronic decubitus ulcer, pathological fracture of left clavicle, gout, initially he was sent to the ER for possible Acute hemolytic transfusion reaction, as on the day of admission he had received 2 units PRBC as outpatient, for anemia. When I interacted with the patient he was predominantly complaining of severe back pain, he denied any chest pain shortness of breath, Rash, fever or chills, nausea vomiting cough. At baseline patient is very ambulatory according to the history provided by the . Upon arrival in the ER, he was worked up for above-mentioned complaint. Pertinent imaging studies: CTA chest: No pulmonary vascular congestion no interstitial edema no pulmonary embolism, Mild bilateral lower lobe and inferior lingular atelectasis. CT spine: Is negative for any acute fracture or dislocation: Scattered areas of lytic and sclerotic suspected metastatic disease throughout the osseous structures.1. 5 cm lytic metastatic disease to the right ilium abutting the sacroiliac joint, similar to prior exam.Patchy areas of mixed lytic and sclerotic bony lesions throughout the spine suggestive of metastatic disease .Bilateral dependent atelectasis.L1-L2 broad-based disc bulge with moderate spinal canal and bilateral narrowing. L2-L3 broad-based disc bulge with mild spinal canal and moderate to severe bilateral foraminal narrowing. L3-L4 broad- based disc bulge with mild spinal canal and moderate bilateral foraminal narrowing. L4-L5 broad-based disc bulge with ligamentum flavum hypertrophy and productive degenerative changes resulting in moderate to severe spinal canal and moderate to severe bilateral foraminal narrowing. L5/S1 productive degenerative changes resulting in severe bilateral foraminal narrowing. Recent CT abdomen and pelvis done has shown: Bladder wall thickening with multiple dependent bladder calculi, the largest measuring 5 mm. Osseous metastases, including a 4.7 x 4.2 by 5.0 cm ovoid lytic lesion in their posteromedial aspect of the right ilium, abutting the right sacroiliac joint. Pertinent labs: WBC 2.9 , H&H: 10.3/ 30 PLT : 83 , serum sodium 130, serum potassium: 4.6 , BUN serum creatinine: 27/1.1 , total bilirubin 2.6, LDH 615, haptoglobin:145, Serum lactate normal. Review of Systems General: Reports: 10 or more systems reviewed and unremarkable except in HPI and below Narrative: 69-year-old currently not in acute distress being admitted for carlo st pain evaluation Const: Denies: fever(s), chills, body aches, change in appetite or diaphoresis Card: Denies: palpitations, edema, swelling of feet/ankles, dyspnea on exertion, orthopnea or leg pain with exertion Resp: Denies: dyspnea, productive cough, wheezing or pain on inspiration GI: Denies: abdominal pain, nausea, vomiting, diarrhea or constipation : Denies: flank pain or difficulty urinating Musc: Denies: back pain, extremity pain or extremity swelling Neuro: Denies: headache(s), difficulty walking or confusion Medications/Allergies Home Medications Medication Instructions Recorded Confirmed Last Taken Type tamsulosin 0.4 mg capsule 0.4 mg PO QPM 07/01/19 01/11/22 01/10/22 History Sole Supports #1 ea 07/15/19 01/11/22 Unknown Rx carbon fiber #1 each 11/27/19 01/11/22 Unknown Rx Gel toe sleeve, right hallux #1 ea 12/12/19 01/11/22 Unknown Rx acetaminophen 500 mg tablet 1,000 mg PO Q4H PRN 12/10/21 01/11/22 01/11/22 15:00 History 1000 mg ibuprofen-diphenhydramine citrate 1 tab PO BEDTIME 12/10/21 01/11/22 01/11/22 00:00 History 200 mg-38 mg tablet (Advil PM) lactulose 10 gram/15 mL oral 15 ml PO DAILY PRN #300 ml 12/12/21 01/11/22 01/10/22 Rx solution lorazepam 1 mg tablet 0.5 - 1 mg PO Q6H PRN #30 tab 12/29/21 01/11/22 Unknown Rx olanzapine 5 mg tablet 5 mg PO QPM #30 tab 12/29/21 01/11/22 01/07/22 Rx prochlorperazine maleate 10 mg 10 mg PO Q4H PRN #30 tab 12/29/21 01/11/22 Unknown Rx tablet (Compazine) folic acid 1 mg tablet 1 mg PO QPM #90 tab 01/04/22 01/11/2222 Rx prednisone 50 mg tablet See Rx Instructions .ROUTE 01/04/22 01/11/22 01/07/22 Rx .COMPLEX 21 Days #10 tab finished 01/07/22 pantoprazole 40 mg tablet,delayed 40 mg PO BEDTIME #14 tab 01/08/22 01/11/22 01/11/22 14:30 Rx release (Protonix) allopurinol 300 mg tablet 300 mg PO QAM 01/11/22 01/11/22 01/11/22 06:30 History amlodipine 5 mg tablet 5 mg PO QAM 01/11/22 01/11/22 01/11/22 06:30 History dexamethasone 4 mg tablet 2 mg PO QAM 01/11/22 01/11/22 01/11/22 History fluconazole 100 mg tablet 100 mg PO QAM 01/11/22 01/11/22 01/11/22 06:30 History (Diflucan) sennosides 8.6 mg-docusate sodium 2 tab PO BID 01/11/22 01/11/22 01/11/22 06:30 History 50 mg tablet (Senokot-S) sulfamethoxazole 800 1 tab PO .ON MON,MON,Mon01/11/22 01/11/22 Unknown History mg-trimethoprim 160 mg tablet (Bactrim DS) valacyclovir 500 mg tablet 500 mg PO QAM 01/11/22 01/11/22 01/11/22 06:30 History see pharmacy comment Allergies Allergy/AdvReac Type Severity Reaction Status Date / Time meperidine [From Demerol] Allergy Mild ADR/ALGY-Hy Verified 01/10/22 08:46 potension Opioids - Morphine Analogues Allergy Mild ADR/ALGY-Hy Verified 01/10/22 08:46 potension oxycodone [From Percocet] Allergy Mild ADR/ALGY-Hy Verified 01/10/22 08:46 potension PFSH Acute PFSH: Medical History BPH (benign prostatic hyperplasia) 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 Decubitus skin ulcer Diffuse large B-cell lymphoma of extranodal site Fracture of clavicle, left, closed Hallux rigidus of both feet History of fracture of clavicle Peripheral neuropathy Protein-energy malnutrition Surgical History History of cataract surgery Bilateral cataract excisions Hx of repair of rotator cuff S/P arthroscopic surgery of left knee S/P lymph node biopsy (11/17/21) Core needle biopsy of left supraclavicular lymph node Status post surgical removal of malignant neoplasm of skin Family History Father Cancer Brother Diabetes Denies family history of CAD (coronary artery disease) Clotting disorder Dementia Hyperlipidemia Psychiatric illness Chronic kidney disease (CKD) Suicide Anesthesia complication Bleeding disorder Family history of premature coronary artery disease Lung disease Hypertension Stroke Social History Smoking and tobacco status: former smoker Quit status (tobacco): has quit using tobacco Second hand smoke exposure: Yes Smoking risk assessment/counseling performed?: Yes Alcohol intake: never Desire information about alcohol rehabilitation?: No Counseling given: No Desire information about substance/drug rehabilitation?: No Counseling given: No Adopted: No Caregiver/support person: No Lives independently: Yes Household members: spouse Housing: House Marital status: Current occupational status: retired Current occupational exposures/hazards: No History of recent travel: No Current gender identity: Male Vitals/I&O/Wt Last Vital Signs Temp 98.2 F 01/11/22 15:36 Pulse 130 H 01/11/22 15:36 Resp 16 01/11/22 17:26 BP 151/111 01/11/22 15:36 Pulse Ox 97 01/11/22 17:26 Weight last 48 hrs Weight 92.986 kg Physical Exam Const: COMMON NORMALS: patient oriented x3 HENMT: COMMON NORMALS: normocephalic and atraumatic HEAD & SCALP: normocephalic and atraumatic Eye: GENERAL EYE: appearance normal, both eyes and all related structures Chest: CHEST: Yes Symmetrical chest wall rise Resp: COMMON NORMALS: clear to auscultation bilaterally EFFORT & INSPECTION: Yes symmetric chest movement AUSCULTATION: clear to auscultation bilaterally Cardio: COMMON NORMALS: regular rate, regular rhythm, S1 normal heart sound present, S2 normal heart sound present, No gallops present (Cardio), No murmurs present (Cardio), No rub (Cardio) and Peripheral pulses 2+ throughout RATE: regular rate RHYTHM: regular rhythm HEART SOUNDS: S1 normal heart sound present and S2 normal heart sound present PERIPHERAL PULSES: Peripheral pulses 2+ throughout GI: COMMON NORMALS: Normal to inspection, nondistended, normoactive bowel sounds present, Soft to palpation, non-tender, No hepatosplenomegaly present and no masses AUSCULTATION: Yes normoactive bowel sounds PALPATION: Yes Soft to palpation and Yes No hepatosplenomegaly present RECTAL EXAM: Yes deferred Extremity: COMMON NORMALS: no clubbing, cyanosis or edema and no pedal edema Neuro: COMMON NORMALS: patient oriented x3 Data : 01/12/22 03:50 01/12/22 03:50 A&P Assessment and plan (1) Anemia: Status: Acute (2) Diffuse large B-cell lymphoma of extranodal site: Status: Acute (3) Hyponatremia: Status: Acute (4) Hyperbilirubinemia: Status: Acute (5) Thrombocytopenia: Status: Acute (6) Leukopenia: Status: Acute Plan 81 year old male with past medical history of diffuse B-cell lymphoma with bony metastasis , currently on chemotherapy, chemotherapy received last Monday, c hronic decubitus ulcer, pathological fracture of left clavicle, gout, initially he was sent to the ER for possible Acute hemolytic transfusion reaction, as on the day of admission he had received 2 units PRBC as outpatient, for anemia. When I interacted with the patient he was predominantly complaining of severe back pain, he denied any chest pain shortness of breath, Rash, fever or chills, nausea vomiting cough. At baseline patient is very ambulatory according to the history provided by the . Based on the lab works: Patient is neither having acute hemolytic transfusion reaction, he does not have any prior history of blood transfusion, delayed hemolytic transfusion reaction is not in question. Clinically as well as based on imaging studies patient was not in volume overload it is less likely that patient was in TACO, CT chest failed to show any acute lung injury, hence TRALI is out of question. Both these diagnosis was in consideration while admitting the patient, and was discussed with ER physician. Overnight Lasix given has resulted in hyponatremia, as well as low systolic bl ood pressure. Assessment: Anemia Leukopenia Thrombocytopenia Severe back pain: Secondary to metastatic disease Diffuse B-cell lymphoma 5 cm lytic metastatic disease to the right ilium abutting the sacroiliac joint, Plan: S/p 2 units PRBC transfusion monitor H&H Follow blood culture Follow urine culture Empirically on Zosyn Pain control We will keep him on dexamethasone IV Orthopedic consult Cautious use of narcotics, to avoid hypoventilation associated hypoxia CODE STATUS: Full code DVT prophylaxis: SCDs Attestations Medical Necessity Statement*: Patient is to be in hospital for management of, severe back pain, metastatic disease, anemia. Anticipated length of stay greater than 2 midnights Time Spent in Patient Care: Greater than 35 minutes (>than 50% of time spent in counselling and/or direct pt care on unit) . Coding Level of Care Code Acute Dialysis Patient Care Technician for Chg Fwd Exam Comprehensive Diagnoses Anemia D64.9 Diffuse large B-cell lymphoma of extranodal site C83.39 Hyponatremia E87.1 Hyperbilirubinemia E80.6 Thrombocytopenia D69.6 Leukopenia D72.819
[2022-01-11] MEDS: HYDROmorphone 1 mg/mL INJ 1 mL 0.5 MG IVP (18:29)
--- NOTE | 2022-01-11 18:47 | PC.NURSE ---
dr. holcomb notified of blood bank report of non hemolytic reaction from blood transfusion
[2022-01-11] MEDS: HYDROmorphone 1 mg/mL INJ 1 mL 2 MG IVP (19:21)
[2022-01-11] MEDS: sodium chloride 0.9% 1,000 ML 100 ML IV (19:33)
[2022-01-11] MEDS: pantoprazole DR 40 mg Tablet PO (21:02)
[2022-01-11 21:10] LABS: Fibrinogen 233 mg/dL (174-498)
[2022-01-11] MEDS: HYDROcodone-acetaminophen 5-325 mg Tablet 1 TAB PO (23:54)
[2022-01-12] VITALS (146 sets, daily range): BP systolic 97–152; BP diastolic 51–92; PULSE 11–127; RESP 11–40; TEMP 36.6–37.5; O2SAT 75–98
[2022-01-12] MEDS: HYDROmorphone 1 mg/mL INJ 1 mL 2 MG IVP ×2 (01:45→07:50)
--- NOTE | 2022-01-12 03:49 | CTR_ITS ---
PROCEDURE INFORMATION: Exam: CTA Chest With Contrast Exam date and time: 01/12/2022 4:53 AM Age: 81 years old Clinical indication: Abnormal findings; Abnormal diagnostic tests; Elevated d-dimer; Shortness of breath; Prior surgery; Surgery type: Chest port; Patient HX: SOB with elevated d dimer. Hypoxic requiring 10 L of 02 on non rebreather. ; Additional info: Hypoxia, tachycardia TECHNIQUE: Imaging protocol: Computed tomographic angiography of the chest with contrast. 3D rendering (Not supervised by radiologist): MIP and/or 3D reconstructed images were created by the technologist. Radiation optimization: All CT scans at this facility use at least one of these dose optimization techniques: automated exposure control; mA and/or kV adjustment per patient size (includes targeted exams where dose is matched to clinical indication); or iterative reconstruction. Contrast material: OMNI 350; Contrast volume: 56 ml; Contrast route: INTRAVENOUS (IV); COMPARISON: [place] [id number] 12/09/2021 10:08 PM RADIATION DOSE METRICS: Total DLP (mGy-cm): 520.81 FINDINGS: Tubes, catheters and devices: Right internal jugular Port-A-Cath is seen with tip in the deep right atrium. Recommend clinical assessment. Pulmonary arteries: No CT evidence for segmental pulmonary emboli. The main pulmonary arteries and outflow trunk are unremarkable. Aorta: No thoracic aortic aneurysm. No thoracic aortic dissection. Trachea: The central airway is normal. Lungs: Unchanged minimal the left apical subpleural blebs are seen, suggestive of emphysematous change. Mild bilateral lower lobe and inferior lingular atelectasis is seen. Associated tiny bilateral pleural effusions. No CT evidence of interstitial lung disease. Pleural spaces: No pneumothorax. Heart: There is unchanged mild 4 chamber cardiomegaly. No pericardial effusion. Unchanged mild coronary arterial atherosclerotic vascular calcifications. Lymph nodes: No enlarged lymph nodes. Bones/joints: Medium-sized anterolateral degenerative osteophytes are seen in the mid to lower thoracic spine. Small upper thoracic spine degenerative osteophytes are seen. Degenerative disc disease changes are seen throughout the lumbar spine, moderate to severe in the lower lumbar region. Some unchanged nonspecific patchy sclerotic changes are seen involving the T11 vertebral body and visualized upper lumbar spine. Unchanged left posterior 11th rib fracture is seen with associated lytic destructive changes. This may represent a pathologic fracture related to osseous metastatic disease. Bone scan may be performed for complete assessment. Soft tissues: Unremarkable. Other findings: The visualized abdomen shows a moderately fluid distended stomach. Moderate gas and fecal material is seen in visualized colonic loops in the abdomen. Moderately distended gallbladder is seen. No calcified stones. CT/CT angio chest PE protcl [id number] IMPRESSION: 1. No CTA evidence of pulmonary embolism, thoracic aortic aneurysm or thoracic aortic dissection. 2. Right internal jugular Port-A-Cath seen with tip in the deep right atrium. Recommend clinical assessment. 3. Mild bilateral lower lobe and inferior lingular atelectasis. Associated tiny bilateral pleural effusions. No CT evidence of interstitial lung disease. 4. Degenerative changes of the thoracic spine, as noted above. Unchanged nonspecific patchy sclerotic changes of the T11 vertebral body and visualized upper thoracic spine. Unchanged left posterior 11th rib fracture seen with associated lytic destructive changes. This may represent a pathologic fracture related to osseous metastatic disease. Bone scan may be performed for complete assessment.
--- NOTE | 2022-01-12 03:49 | ECG_ITS ---
[facility] Test Date: 2022-01-12 Pat Name: Kendall Camejo Department: Room: ED Gender: Male Qa Developer: : 1940 Requested By: Chema Espinoza Order Number: [id number] Young MD: Ambrosio Rubio M.D. Measurements Intervals [place] Rate: 116 P: -17 RI: 177 QRS: -25 QRSD: 94 T: 0 QT: 295 QTc: 411 Interpretive Statements SINUS TACHYCARDIA BORDERLINE LEFT AXIS DEVIATION [QRS AXIS < -20] MODERATE VOLTAGE CRITERIA FOR LVH, CONSIDER NORMAL VARIANT [MEETS CRITERIA IN ONE OF: R(aVL), S(V1), R(V5), R(V5/V6)+S(V1)] Compared to ECG 12/16/2021 07:36:46 Atrial fibrillation no longer present Myocardial infarct finding no longer present Electronically Signed On 01-12-2022 16:30:40 CDT by Ambrosio Rubio M.D. [id number]
--- NOTE | 2022-01-12 03:55 | W.PM.EVENTAC ---
Event Note Event Note: Received notification patient has some persistent hypoxia since last night, perhaps somewhat worse currently, 85%, requiring 5 L of oxygen, he is going to be transition to simple mask oxygen. Tachycardia slightly worse as well. He denies any cough, does state that he is having some chest pressure symptoms. He denies normally using supplemental oxygen. Discussed with him regarding hypoxia, tachycardia. Noted abnormal D-dimer. Transfusion reaction studies noted normal. Discussed with him concern of possibility of PE with discussion of assessment options, he is agreeable with assessment with CT angiogram after discussion of risks. This should help additionally assess for possibility of pneumonia, fluid overload. Trali, taco or additional considerations after blood transfusion. Discussed also with him also regarding testing for COVID-19. We will also assess troponin EKG series given chest pressure. We will also additionally draw the morning labs earlier currently for reassessment of blood counts, chemistries including calcium, phosphorus, uric acid for assessment for possibility of TLS. NB earlier tonight was having difficulty urinating and Robbins catheter placed for urinary retention with 725 mL out. Assess UA..
[2022-01-12 04:01] LABS: Basophils % 1.4 %; Hematocrit 24.2 % (42.0-52.0); Hemoglobin 8.6 g/dL (11.7-16.6); Lymphocytes # 0.1 10^3/uL (0.8-4.8); Lymphocytes % 3.4 %; Mean Corpuscular HGB Conc 35.5 g/dL (30.0-36.0); Mean Corpuscular Hemoglobin 31.5 pg (28.0-34.0); Mean Corpuscular Volume 88.6 fl (80-94); Mean Platelet Volume 10.7 fL (7.4-10.4); Monocytes # 0.2 10^3/uL (0.2-0.9); Monocytes % 15.2 %; Neutrophils % 57.9 %; Nucleated Red Blood Cells # 0.3 /100WBC; Nucleated Red Blood Cells % 17.2 %; Platelet Count 61 10^3/cmm (130-400); Red Blood Count 2.73 10^6/uL (4.1-5.3); Red Cell Distribution Width 15.5 % (12.1-15.1); White Blood Count 1.5 10^3/uL (4.0-10.0)
[2022-01-12 04:10] LABS: INR 1.16 (0.8-1.2)
[2022-01-12 04:11] LABS: Partial Thromboplastin Time 29.6 SECONDS (23.9-36.7)
[2022-01-12 04:17] LABS: Alanine Aminotransferase 35 U/L (0-41); Albumin Level 3.2 g/dL (3.5-5.2); Alkaline Phosphatase 90 IU/L (40-130); Anion Gap 12.4 (5-19); Aspartate Amino Transferase 47 U/L (0-40); Blood Urea Nitrogen 28 mg/dL (8-23); Calcium 7.6 mg/dL (8.5-10.5); Carbon Dioxide 24 mmol/L (22-29); Chloride 94 mmol/L (98-107); Globulin 1.4 g/dL (1.3-4.6); Glucose 120 mg/dL (65-115); Lactate (Lactic Acid level) 1.5 mmol/L (0.5-2.2); Osmolality Calculated 269 mOsm/kg (285-295); Phosphorus 2.8 mg/dL (2.5-4.5); Potassium 4.4 mmol/L (3.5-5.1); Sodium 126 mmol/L (136-145); Total Bilirubin 1.6 mg/dL (0.15-1.2); Total Protein 4.6 g/dL (6.6-8.7); Troponin(5th) Baseline 29 ng/L (0-15); Uric Acid 3.4 mg/dL (3.4-7.0)
[2022-01-12 04:22] LABS: Neutrophils # 0.84 10^3/uL (1.8-7.7); Slide Review Slide Review Perform
[2022-01-12 04:41] LABS: Add Urine Culture? Yes; Add Urine Microscopic? YES; Bacteria Urine TRACE /hpf; Bilirubin Urine Neg (Negative); Blood Urine 3+ (Negative); Glucose Urine UA Norm (Normal); Ketones Urine Negative (Negative); Leukocyte Esterase Urine Negative (Negative); Nitrate Urine Negative (Negative); Protein Urine Neg (Negative); RBC Urine 15-25 /hpf (0-2); Squamous Epithelial Cell Urine 0-4 /hpf (0-5); Urine Appearance Clear (CLEAR); Urine Color Yellow (Yellow); Urobilinogen Urine Norm (Negative); WBC Urine 0-4 /hpf (0-5); pH Urine 5 (5-7)
[2022-01-12] MEDS: iohexol 350 mg/mL 100 mL Btl IV (05:15)
[2022-01-12] MEDS: FUROsemide 10 mg/mL SDV 4mL 40 MG IVP (05:28)
[2022-01-12] MEDS: piperacillin-tazobactam 3.375 GM in sodium chloride 0.9% (plus) 50 ML IV ×2 (05:38→20:25)
[2022-01-12 05:40] LABS: Adenovirus Not Detected (NOT DETECT); Chlamydia Pneumoniae Not Detected (NOT DETECT); Coronavirus 229E,HKU1,NL63,OC4 Not Detected (NOT DETECT); Human Metapneumovirus Not Detected (NOT DETECT); Human Rhinovirus/Enterovirus Not Detected (NOT DETECT); Influenza A Not Detected (NOT DETECT); Influenza A H1 Not Detected (NOT DETECT); Influenza A H1-2009 Not Detected (NOT DETECT); Influenza A H3 Not Detected (NOT DETECT); Influenza B Not Detected (NOT DETECT); Mycoplasma Pneumoniae Not Detected (NOT DETECT); Parainfluenza Virus Type 1 Not Detected (NOT DETECT); Parainfluenza Virus Type 2 Not Detected (NOT DETECT); Parainfluenza Virus Type 3 Not Detected (NOT DETECT); Parainfluenza Virus Type 4 Not Detected (NOT DETECT); Respiratory Syncytial Virus A Not Detected (NOT DETECT); Respiratory Syncytial Virus B Not Detected (NOT DETECT); SARS-COV-2 Not Detected (NOT DETECT)
[2022-01-12] MEDS: allopurinol 300 mg Tablet PO (05:45)
[2022-01-12] MEDS: amlodipine 5 mg Tablet PO (05:45)
--- NOTE | 2022-01-12 05:49 | ECG_ITS ---
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 Measurements Intervals [place] Rate: 111 P: 15 VT: 186 QRS: -27 QRSD: 98 T: 9 QT: 307 QTc: 418 Interpretive Statements SINUS TACHYCARDIA WITH OCCASIONAL SUPRAVENTRICULAR PREMATURE COMPLEXES BORDERLINE LEFT AXIS DEVIATION [QRS AXIS < -20] MINIMAL VOLTAGE CRITERIA FOR LVH, CONSIDER NORMAL VARIANT [MEETS CRITERIA IN ONE OF: R(aVL), S(V1), R(V5), R(V5/V6)+S(V1)] ABNORMAL RHYTHM ECG Compared to ECG 01/12/2022 04:17:10 No significant changes Electronically Signed On 01-12-2022 16:34:39 CDT by Ambrosio Rubio M.D. [id number]
[2022-01-12 06:41] LABS: Troponin 5 2HR 29.83 ng/L (0-15)
[2022-01-12 07:08] LABS: Troponin 5 2HR Delta 0.83 ABS# (0-10)
--- NOTE | 2022-01-12 09:49 | ECG_ITS ---
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 Measurements Intervals [place] Rate: 116 P: 11 MT: 191 QRS: -26 QRSD: 101 T: -11 QT: 309 QTc: 429 Interpretive Statements SINUS TACHYCARDIA BORDERLINE LEFT AXIS DEVIATION [QRS AXIS < -20] VOLTAGE CRITERIA FOR LVH [MEETS CRITERIA IN ONE OF: R(aVL), S(V1), R(V5), R(V5/V6)+S(V1)] Compared to ECG 01/12/2022 06:05:35 No significant changes Electronically Signed On 01-12-2022 16:34:01 CDT by Ambrosio Rubio M.D. [id number]
[2022-01-12 10:21] LABS: Troponin 5 6HR 28.62 ng/L (0-15)
[2022-01-12 10:26] LABS: Troponin 5 6HR Delta -0.38 ng/L (0-12)
[2022-01-12] MEDS: HYDROcodone-acetaminophen 5-325 mg Tablet 1 TAB PO (10:54)
--- NOTE | 2022-01-12 11:15 | CTR_ITS ---
PROCEDURE INFORMATION: Exam: CT Lumbar Spine Without Contrast Exam date and time: 01/12/2022 2:23 PM Age: 81 years old Clinical indication: Pain and condition or disease; Low back pain; Patient HX: Back pain, lymphoma; Additional info: Severe pain TECHNIQUE: Imaging protocol: Computed tomography of the lumbar spine without contrast. Radiation optimization: All CT scans at this facility use at least one of these dose optimization techniques: automated exposure control; mA and/or kV adjustment per patient size (includes targeted exams where dose is matched to clinical indication); or iterative reconstruction. COMPARISON: CT thoracic spin wo con* [id number] 01/12/2022 2:18 PM RADIATION DOSE METRICS: Total DLP (mGy-cm): 1665.7 FINDINGS: Bones/joints: 5 cm lytic metastatic disease to the right ilium abutting the sacroiliac joint, similar to prior exam. Patchy areas of mixed lytic and sclerotic bony lesions throughout the spine suggestive of metastatic disease. L1-L2: L1-L2 broad-based disc bulge with moderate spinal canal and bilateral narrowing. L2-L3: L2-L3 broad-based disc bulge with mild spinal canal and moderate to severe bilateral foraminal narrowing. L3-L4: L3-L4 broad-based disc bulge with mild spinal canal and moderate bilateral foraminal narrowing. L4-L5: No significant disc protrusion. No severe spinal canal stenosis. No significant neural foraminal narrowing. L5-S1: L5/S1 productive degenerative changes resulting in severe bilateral foraminal narrowing. Lungs: Bilateral dependent atelectasis. Soft tissues: L4-L5 broad-based disc bulge with ligamentum flavum hypertrophy and productive degenerative changes resulting in moderate to severe spinal canal and moderate to severe bilateral foraminal narrowing. CT/CT lumbar spine wo con* [id number] IMPRESSION: 1. 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 2. Patchy areas of mixed lytic and sclerotic bony lesions throughout the spine suggestive of metastatic disease. 3. Bilateral dependent atelectasis. 4. L1-L2 broad-based disc bulge with moderate spinal canal and bilateral narrowing. 5. L2-L3 broad-based disc bulge with mild spinal canal and moderate to severe bilateral foraminal narrowing. 6. L3-L4 broad-based disc bulge with mild spinal canal and moderate bilateral foraminal narrowing. 7. L4-L5 broad-based disc bulge with ligamentum flavum hypertrophy and productive degenerative changes resulting in moderate to severe spinal canal and moderate to severe bilateral foraminal narrowing. 8. L5/S1 productive degenerative changes resulting in severe bilateral foraminal narrowing.
--- NOTE | 2022-01-12 11:15 | CTR_ITS ---
PROCEDURE INFORMATION: Exam: CT Cervical Spine Without Contrast Exam date and time: 01/12/2022 2:14 PM Age: 81 years old Clinical indication: Condition or disease; Other: Lymphoma; Additional info: Severe pain in the lumbar region. TECHNIQUE: Imaging protocol: Computed tomography of the cervical spine without contrast. Radiation optimization: All CT scans at this facility use at least one of these dose optimization techniques: automated exposure control; mA and/or kV adjustment per patient size (includes targeted exams where dose is matched to clinical indication); or iterative reconstruction. COMPARISON: CT angio chest PE protcl [id number] 01/12/2022 4:53 AM RADIATION DOSE METRICS: Total DLP (mGy-cm): 534.04 FINDINGS: Bones/joints: Grade 1 anterolisthesis of C4 relative to C5 of 3.5 mm likely chronic and degenerative. C2-C3: No significant disc protrusion. No severe spinal canal stenosis. No significant neural foraminal narrowing. C3-C4: No significant disc protrusion. No severe spinal canal stenosis. No significant neural foraminal narrowing. C4-C5: No significant disc protrusion. No severe spinal canal stenosis. No significant neural foraminal narrowing. C5-C6: No significant disc protrusion. No severe spinal canal stenosis. No significant neural foraminal narrowing. C6-C7: No significant disc protrusion. No severe spinal canal stenosis. No significant neural foraminal narrowing. C7-T1: No significant disc protrusion. No severe spinal canal stenosis. No significant neural foraminal narrowing. Lungs: Lung apices are normal. Soft tissues: Unremarkable. Other findings: Multilevel degenerative disc space narrowing throughout the spine. CT/CT cervical spin wo con* [id number] IMPRESSION: 1. Negative for fracture or dislocation. 2. Grade 1 anterolisthesis of C4 relative to C5 of 3.5 mm likely chronic and degenerative. 3. Multilevel degenerative disc space narrowing throughout the spine.
--- NOTE | 2022-01-12 11:15 | CTR_ITS ---
PROCEDURE INFORMATION: Exam: CT Thoracic Spine Without Contrast Exam date and time: 01/12/2022 2:18 PM Age: 81 years old Clinical indication: Pain and condition or disease; Other: Lymphoma with diffuse spine pain; Pain in thoracic spine; Patient HX: Back pain; Additional info: Severe pain TECHNIQUE: Imaging protocol: Computed tomography of the thoracic spine without contrast. Radiation optimization: All CT scans at this facility use at least one of these dose optimization techniques: automated exposure control; mA and/or kV adjustment per patient size (includes targeted exams where dose is matched to clinical indication); or iterative reconstruction. COMPARISON: CT cervical spin wo con* [id number] 01/12/2022 2:14 PM RADIATION DOSE METRICS: Total DLP (mGy-cm): 1669.3 FINDINGS: Bones/joints: Scattered areas of lytic and sclerotic suspected metastatic disease throughout the osseous structures. T1-T2: No significant disc protrusion. No severe spinal canal stenosis. No significant neural foraminal narrowing. T2-T3: No significant disc protrusion. No severe spinal canal stenosis. No significant neural foraminal narrowing. T3-T4: No significant disc protrusion. No severe spinal canal stenosis. No significant neural foraminal narrowing. T4-T5: No significant disc protrusion. No severe spinal canal stenosis. No significant neural foraminal narrowing. T5-T6: No significant disc protrusion. No severe spinal canal stenosis. No significant neural foraminal narrowing. T6-T7: No significant disc protrusion. No severe spinal canal stenosis. No significant neural foraminal narrowing. T7-T8: No significant disc protrusion. No severe spinal canal stenosis. No significant neural foraminal narrowing. T8-T9: No significant disc protrusion. No severe spinal canal stenosis. No significant neural foraminal narrowing. T9-T10: No significant disc protrusion. No severe spinal canal stenosis. No significant neural foraminal narrowing. T10-T11: No significant disc protrusion. No severe spinal canal stenosis. No significant neural foraminal narrowing. T11-T12: No significant disc protrusion. No severe spinal canal stenosis. No significant neural foraminal narrowing. T12-L1: No significant disc protrusion. No severe spinal canal stenosis. No significant neural foraminal narrowing. Heart: Cardiomegaly. Lungs: Bilateral dependent atelectasis versus infiltrate. Vasculature: Coronary artery atherosclerotic calcifications. Other findings: Emphysematous changes. CT/CT thoracic spin wo con* [id number] IMPRESSION: 1. Negative for fracture or dislocation. 2. Scattered areas of lytic and sclerotic suspected metastatic disease throughout the osseous structures. 3. Bilateral dependent atelectasis versus infiltrate. 4. Emphysematous changes. 5. Cardiomegaly. 6. Coronary artery atherosclerotic calcifications.
--- NOTE | 2022-01-12 12:36 | PC.NURSE ---
Pt O2 dropped to 85% with good wave form. Pt currently on 10L simple mask. Pt switch to 15L non-rebreather. Pt O2 increased to 96%. This nurse was ordered to switch back to simple mask with 15L per Dr Moran. Pt 02 currently 92%
[2022-01-12 18:36] LABS: ABG PCO2 38.4 mmHg (35-45); ABG PH Result 7.43 (7.35-7.45); Alveolar-Arterial Oxygen Gradi 3.3 mmHg (5-10); Arterial Blood Gas Hematocrit 27.6 % (42-52); Base Excess ABG 1.4 mmol/L (-2.0-2.0); Blood Gas Allen Test Pos; Blood Gas Operator Identificat MONRO; Blood Gas Sample Site Radial, right; Blood Gas Sample Type Arterial; Carboxyhemoglobin 1.1 %THgb (0.4-20.1); HCO3 ABG 25.7 mmol/L (22-26); HGB O2 Sat 94.6 % (95-100); Ionized Calcium Level - ABG 1.1 mmol/L (1.1-1.4); Methemoglobin 0.5 % (0.4-1.5); Oxygen Device OXY MASK; Oxygen Saturation ABG 96.1; PO2 ABG 75.1 mmHg (80.0-100.0)
--- NOTE | 2022-01-12 18:59 | P.PN_ITS ---
Subjective Subjective: Patient was seen and examined this morning continues to complain of significant back pain, patient is hyponatremic this morning Likely secondary to Lasix given overnight. Patient has constantly required IV as well as oral narcotics, due to severe back pain As well as hip pain, secondary to metastatic disease. Medications: Medication Review Details: Generic Name Dose Route Start Last Admin Trade Name Freq PRN Reason Stop Dose Admin Hydrocodone Bitart /Acetaminophen 1 tab 01/11/22 18:06 01/12/22 10:54 Hydrocodone-Acet aminophen 5-325 Mg Tablet PO 1 tab Q4H PRN Administration MODERATE TO SEVER E PAIN Allopurinol 300 mg 01/12/22 06:00 01/12/22 05:45 Allopurinol 300 Mg Tablet PO 300 mg QAM REJI Administration Amlodipine Besylat e 5 mg 01/12/22 06:00 01/12/22 05:45 Amlodipine 5 Mg Tablet PO 5 mg QAM REJI Administration Hydromorphone HCl 2 mg 01/11/22 18:54 01/12/22 07:50 Hydromorphone 1 Mg/Ml Inj 1 Ml IVP 2 mg Q4H PRN Administration pain Piperacillin Sod/T azobactam 50 mls @ 12.5 mls /hr 01/12/22 04:30 01/12/22 09:48 Sod 3.375 gm/ So dium Chloride IV Infused Q8H REJI Infusion Protocol Pantoprazole Sodiu m 40 mg 01/11/22 21:00 01/11/22 21:[address] 40 Mg Tablet PO 40 mg BEDTIME REJI Administration Vitals/I&O/Wt Last Vital Signs Temp 99.5 F 01/12/22 04:15 Pulse 104 H 01/12/22 18:18 Resp 15 01/12/22 18:18 BP 123/64 01/12/22 18:18 Pulse Ox 90 01/12/22 18:18 01/12/22 01/12/22 01/12/22 06:59 14:59 22:59 Intake Total 50 / 50 Output Total 1025 / 1025 2800 / 2800 Balance -1025 / -1009 -2750 / -2750 Weight last 48 hrs Weight 92.986 kg Physical Exam Const: COMMON NORMALS: patient oriented x3 HENMT: COMMON NORMALS: normocephalic and atraumatic HEAD & SCALP: normocephalic and atraumatic Eye: GENERAL EYE: appearance normal, both eyes and all related structures Chest: CHEST: Yes Symmetrical chest wall rise Resp: COMMON NORMALS: clear to auscultation bilaterally EFFORT & INSPECTION: Yes symmetric chest movement AUSCULTATION: clear to auscultation bilaterally Cardio: COMMON NORMALS: regular rate, regular rhythm, S1 normal heart sound present, S2 normal heart sound present, No gallops present (Cardio), No murmurs present (Cardio), No rub (Cardio) and Peripheral pulses 2+ throughout RATE: regular rate RHYTHM: regular rhythm HEART SOUNDS: S1 normal heart sound present and S2 normal heart sound present PERIPHERAL PULSES: Peripheral pulses 2+ throughout GI: COMMON NORMALS: Normal to inspection, nondistended, normoactive bowel sounds present, Soft to palpation, non-tender, No hepatosplenomegaly present and no masses AUSCULTATION: Yes normoactive bowel sounds PALPATION: Yes Soft to palpation and Yes No hepatosplenomegaly present RECTAL EXAM: Yes deferred Extremity: COMMON NORMALS: no clubbing, cyanosis or edema and no pedal edema Neuro: COMMON NORMALS: patient oriented x3 Urinary Catheter Management: Robbins: Cath Placed During This Visit: yes Urinary Catheter Date of Insertion: 01/12/22 Urinary Catheter Time of Insertion: 01:28 Data : 01/12/22 03:50 01/12/22 03:50 Micro: Microbiology 01/12/22 09:35 Blood Culture - Preliminary Blood SPECIMEN COLLECTED 01/12/22 09:30 Blood Culture - Preliminary Blood SPECIMEN COLLECTED A&P Assessment and plan (1) Anemia: Status: Acute (2) Diffuse large B-cell lymphoma of extranodal site: Status: Acute (3) Hyponatremia: Status: Acute (4) Hyperbilirubinemia: Status: Acute (5) Thrombocytopenia: Status: Acute (6) Leukopenia: Status: Acute Plan 81 year old male with past medical history of diffuse B-cell lymphoma with bony metastasis , currently on chemotherapy, chemotherapy received last Monday, chronic decubitus ulcer, pathological fracture of left clavicle, gout, initially he was sent to the ER for possible Acute hemolytic transfusion reaction, as on the day of admission he had received 2 units PRBC as outpatient, for anemia. When I interacted with the patient he was predominantly complaining of severe back pain, he denied any chest pain shortness of breath, Rash, fever or chills, nausea vomiting cough. At baseline patient is very ambulatory according to the history provided by the . Based on the lab works: Patient is neither having acute hemolytic transfusion reaction, he does not have any prior history of blood transfusion, delayed hemolytic transfusion reaction is not in question. Clinically as well as based on imaging studies patient was not in volume overload it is less likely that patient was in TACO, CT chest failed to show any acute lung injury, hence TRALI is out of question. Both these diagnosis was in consideration while admitting the patient, and was discussed with ER physician. Overnight Lasix given has resulted in hyponatremia, as well as low systolic blood pressure. Assessment: Anemia Hyponatremia: Possibly secondary to overdiuresis: Leukopenia Thrombocytopenia Afebrile neutropenia Severe back pain: Secondary to metastatic disease Diffuse B-cell lymphoma 5 cm lytic metastatic disease to the right ilium abutting the sacroiliac joint, Plan: S/p 2 units PRBC transfusion monitor H&H Follow blood culture Follow urine culture Empirically on Zosyn Pain control Bowel regimen We will keep him on dexamethasone IV Orthopedic consult Cautious use of narcotics, to avoid hypoventilation associated hypoxia CODE STATUS: Full code DVT prophylaxis: SCDs Attestations Medical Necessity Statement*: Patient is to be in hospital for management of, intractable back pain, need for IV pain meds. 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
[2022-01-12] MEDS: dexamethasone 10 mg/mL INJ IVP (20:23)
[2022-01-12] MEDS: pantoprazole DR 40 mg Tablet PO (20:24)
[2022-01-12] MEDS: tamsulosin 0.4 mg Capsule PO (20:24)
[2022-01-12] MEDS: folic acid 1 mg Tablet PO (20:24)
[2022-01-12] MEDS: bisacodyl 5 mg Tablet 10 MG PO (20:24)
[2022-01-13] VITALS (7 sets, daily range): BP systolic 111–142; BP diastolic 62–75; PULSE 96–101; RESP 16–19; TEMP 36.4–36.8; O2SAT 91–95
--- NOTE | 2022-01-13 00:30 | PC.NURSE ---
This nurse entered the patient's room because he continuos pulse oximeter machine was alarming. The patient had his oxymask sitting on his chest. The patient's oxygen saturation level was 73%. This nurse replaced the patient's mask at the current setting of 10L, the patient took 2.5 minutes to recover to 91%. Patient's nurse was notified.
[2022-01-13] MEDS: amlodipine 5 mg Tablet PO (05:01)
[2022-01-13] MEDS: piperacillin-tazobactam 3.375 GM in sodium chloride 0.9% (plus) 50 ML IV ×3 (05:01→20:06)
[2022-01-13] MEDS: allopurinol 300 mg Tablet PO (05:01)
[2022-01-13 07:08] LABS: Hematocrit 25.6 % (42.0-52.0); Hemoglobin 8.8 g/dL (11.7-16.6); Lymphocytes # 0.1 10^3/uL (0.8-4.8); Lymphocytes % 2.4 %; Mean Corpuscular HGB Conc 34.4 g/dL (30.0-36.0); Mean Corpuscular Hemoglobin 31.7 pg (28.0-34.0); Mean Corpuscular Volume 92.1 fl (80-94); Mean Platelet Volume 11.1 fL (7.4-10.4); Monocytes # 0.1 10^3/uL (0.2-0.9); Monocytes % 6.8 %; Neutrophils # 1.69 10^3/uL (1.8-7.7); Nucleated Red Blood Cells # 0.1 /100WBC; Nucleated Red Blood Cells % 3.4 %; Platelet Count 49 10^3/cmm (130-400); Red Blood Count 2.78 10^6/uL (4.1-5.3); Red Cell Distribution Width 14.9 % (12.1-15.1); White Blood Count 2.1 10^3/uL (4.0-10.0)
[2022-01-13 07:56] LABS: Alanine Aminotransferase 100 U/L (0-41); Albumin Level 2.9 g/dL (3.5-5.2); Alkaline Phosphatase 261 IU/L (40-130); Aspartate Amino Transferase 48 U/L (0-40); Blood Urea Nitrogen 28 mg/dL (8-23); Calcium 7.5 mg/dL (8.5-10.5); Carbon Dioxide 23 mmol/L (22-29); Chloride 91 mmol/L (98-107); Globulin 1.9 g/dL (1.3-4.6); Glucose 147 mg/dL (65-115); Osmolality Calculated 270 mOsm/kg (285-295); Sodium 126 mmol/L (136-145); Total Bilirubin 0.7 mg/dL (0.15-1.2); Total Protein 4.8 g/dL (6.6-8.7)
[2022-01-13 08:05] LABS: Slide Review Slide Review Perform
[2022-01-13] MEDS: dexamethasone 10 mg/mL INJ IVP (08:30)
--- NOTE | 2022-01-13 09:45 | PC.CHAP ---
Pastoral Care Encounter/Spiritual Assessment Type of Contact [] Declined vending machine refiller visit [] Patient/Family/Request visit [] Outpatient visit [] Follow-up visit [] Physician referral [] Code/Alert [] Routine visit [] Staff referral [] Actively dying [] Patient sleeping [] Family support [] [] Out of room [] Palliative care [] [] Receiving care in room [] Pre-surgical visit [] Trauma [] Long length of stay [] ICU visit [x] Other: Lsolation Relational/Emotional Strength [] Patient feels connected with others/family/visitors/staff [] Distress [] Loneliness/isolation [] Abandonment Spirituality of Patient [] Person of Shanice [] Attends Scientologist of their Shanice [] Believes in Prayer [] Reads Bible or Mandaen materials [] There are Spiritual issues to be addressed Pawn Shop Keeper Interventions [] Prayer [] Active listening [] Non-anxious presence [] Spiritual/emotional support [] Crisis/trauma care [] Spiritual counseling [] Bereavement support [] Provided bereavement packet [] Provided Bible/devotional materials [] Provided toy/stuffed animal, coloring book to patient or family member [] Provided Communion [] Anointing/[place] [] Salvation [] Completed spiritual assessment [] Other: Impact on Illness or Injury [] Angry [] Fearful [] Anxious [] Often cries [] Exhaustion [] Unable to work [] Unable to attend moravian [] Unable to walk/stand [] Unable to read [] Unable to drive [] Unable to eat/drink [] Unable to sleep [] Unable to be with family [] Patient intubated [] Other: Summary Lsolation Time spent with patient 5 mins
[2022-01-13] MEDS: sodium chloride 0.9% 1,000 ML 50 ML IV (12:59)
[2022-01-13] MEDS: sodium chloride 0.9% 500 ML 999 ML IV (12:59)
--- NOTE | 2022-01-13 13:42 | PM.PN ---
Subjective Subjective: Patient was seen and examined this morning, back pain is slightly improved today, continues to have hyponatremia, platelet count has also decreased, no evident bleeding petechiae purpura, H&H is stable, WBC count has improved Medications: Medication Review Details: Generic Name Dose Route Start Last Admin Trade Name Bgq PRN Reason Stop Dose Admin Hydrocodone Bitart /Acetaminophen 1 tab 01/11/22 18:06 01/12/22 10:54 Hydrocodone-Acet aminophen 5-325 Mg Tablet PO 1 tab Q4H PRN Administration MODERATE TO SEVER E PAIN Allopurinol 300 mg 01/12/22 06:00 01/12/22 05:45 Allopurinol 300 Mg Tablet PO 300 mg QAM REJI Administration Amlodipine Besylat e 5 mg 01/12/22 06:00 01/12/22 05:45 Amlodipine 5 Mg Tablet PO 5 mg QAM REJI Administration Hydromorphone HCl 2 mg 01/11/22 18:54 01/12/22 07:50 Hydromorphone 1 Mg/Ml Inj 1 Ml IVP 2 mg Q4H PRN Administration pain Piperacillin Sod/T azobactam 50 mls @ 12.5 mls /hr 01/12/22 04:30 01/12/22 09:48 Sod 3.375 gm/ So dium Chloride IV Infused Q8H REJI Infusion Protocol Pantoprazole Sodiu m 40 mg 01/11/22 21:00 01/11/22 21:[address] 40 Mg Tablet PO 40 mg BEDTIME REJI Administration Vitals/I&O/Wt Last Vital Signs Temp 97.9 F 01/13/22 12:00 Pulse 97 01/13/22 12:00 Resp 18 01/13/22 12:00 BP 133/64 01/13/22 12:00 Pulse Ox 92 01/13/22 12:00 01/12/22 01/13/22 01/13/22 22:59 06:59 14:59 Intake Total 1000 / 1050 460 / 1510 550 / 550 Output Total 900 / 3700 Balance 1000 / -1750 -440 / -2190 550 / 550 Weight last 48 hrs Weight 98.157 kg Weight 92.986 kg Physical Exam Const: COMMON NORMALS: patient oriented x3 HENMT: COMMON NORMALS: normocephalic and atraumatic HEAD & SCALP: normocephalic and atraumatic Eye: GENERAL EYE: appearance normal, both eyes and all related structures Chest: CHEST: Yes Symmetrical chest wall rise Resp: COMMON NORMALS: clear to auscultation bilaterally EFFORT & INSPECTION: Yes symmetric chest movement AUSCULTATION: clear to auscultation bilaterally Cardio: COMMON NORMALS: regular rate, regular rhythm, S1 normal heart sound present, S2 normal heart sound present, No gallops present (Cardio), No murmurs present (Cardio), No rub (Cardio) and Peripheral pulses 2+ throughout RATE: regular rate RHYTHM: regular rhythm HEART SOUNDS: S1 normal heart sound present and S2 normal heart sound present PERIPHERAL PULSES: Peripheral pulses 2+ throughout GI: COMMON NORMALS: Normal to inspection, nondistended, normoactive bowel sounds present, Soft to palpation, non-tender, No hepatosplenomegaly present and no masses AUSCULTATION: Yes normoactive bowel sounds PALPATION: Yes Soft to palpation and Yes No hepatosplenomegaly present RECTAL EXAM: Yes deferred Extremity: COMMON NORMALS: no clubbing, cyanosis or edema and no pedal edema Neuro: COMMON NORMALS: patient oriented x3 Urinary Catheter Management: Robbins: Cath Placed During This Visit: yes Reason for Continuing Indwelling Catheter: Other Urinary Catheter Date of Insertion: 01/12/22 Urinary Catheter Time of Insertion: 01:28 Data : 01/13/22 06:24 01/13/22 06:24 Micro: Microbiology 01/12/22 09:35 Blood Culture - Preliminary Blood NEGATIVE TO DATE 01/12/22 09:30 Blood Culture - Preliminary Blood NEGATIVE TO DATE 01/12/22 04:14 Urine Culture - Preliminary Urine,Clean Catch A&P Assessment and plan (1) Anemia: Status: Acute (2) Diffuse large B-cell lymphoma of extranodal site: Status: Acute (3) Hyponatremia: Status: Acute (4) Hyperbilirubinemia: Status: Acute (5) Thrombocytopenia: Status: Acute (6) Leukopenia: Status: Acute Plan 81 year old male with past medical history of diffuse B-cell lymphoma with bony metastasis , currently on chemotherapy, chemotherapy received last Monday, chronic decubitus ulcer, pathological fracture of left clavicle, gout, initially he was sent to the ER for possible Acute hemolytic transfusion reaction, as on the day of admission he had received 2 units PRBC as outpatient, for anemia. When I interacted with the patient he was predominantly complaining of severe back pain, he denied any chest pain shortness of breath, Rash, fever or chills, nausea vomiting cough. At baseline patient is very ambulatory according to the history provided by the . Based on the lab works: Patient is neither having acute hemolytic transfusion reaction, he does not have any prior history of blood transfusion, delayed hemolytic transfusion reaction is not in question. Clinically as well as based on imaging studies patient was not in volume overload it is less likely that patient was in TACO, CT chest failed to show any acute lung injury, hence TRALI is out of question. Both these diagnosis was in consideration while admitting the patient, and was discussed with ER physician. Overnight Lasix given has resulted in hyponatremia, as well as low systolic blood pressure. Assessment: Anemia Hyponatremia: Possibly secondary to overdiuresis: Leukopenia Chronic thrombocytopenia Afebrile neutropenia Severe back pain: Secondary to metastatic disease Diffuse B-cell lymphoma 5 cm lytic metastatic disease to the right ilium abutting the sacroiliac joint, Plan: S/p 2 units PRBC transfusion monitor H&H Blood culture: NTD Urine culture: NTD Monitor BMP MRI lumbar and thoracic spine: Empirically on Zosyn Pain control Bowel regimen We will keep him on dexamethasone IV Continue gentle IV hydration with normal saline 50 cc an hour Orthopedic consult Cautious use of narcotics, to avoid hypoventilation associated hypoxia CODE STATUS: Full code DVT prophylaxis: SCDs Attestations Medical Necessity Statement*: Patient is to the hospital for management of, intractable back pain. Coding Level of Care Code Acute Organic Search Lead for g Fwd Exam Comprehensive Diagnoses Anemia D64.9 Diffuse large B-cell lymphoma of extranodal site C83.39 Hyponatremia E87.1 Hyperbilirubinemia E80.6 Thrombocytopenia D69.6 Leukopenia D72.819
--- NOTE | 2022-01-13 15:23 | PM.CONSULT ---
Providers/Reason For Consult Consulting Physician/Specialty*: Ortho Spine Reason for Consult*: Back Pain Attending Physician: Cristian Moran MD Primary Care Provider: Robert Floyd MD History of Present Illness History of Present Illness Kendall Camejo is a 81 year old male who has been treated for lymphoma by Dr. Dickey with 1 round of chemo. Orthopedic spine was consulted due to back pain. Patient was evaluated in room 260 bed 1 states he does not have back pain. The who is present states that he has had back pain since September. The nursing staff indicated that he has not complained of back pain. Patient is in no apparent distress on examination. He is moving both lower extremities slowly. Activities are restricted due to his condition. Patient's denies any falls or trauma to his back. She states following the transfusion his back pain got considerably worse. An extensive review of the patient's past medical history, surgical history, allergies, medications, family history, social history, and review of systems was completed Review of Systems General: Reports: 10 or more systems reviewed and unremarkable except in HPI and below Narrative: 69-year-old currently not in acute distress being admitted for chest pain evaluation Const: Denies: fever(s), chills, body aches, change in appetite or diaphoresis Card: Denies: palpitations, edema, swelling of feet/ankles, dyspnea on exertion, orthopnea or leg pain with exertion Resp: Denies: dyspnea, productive cough, wheezing or pain on inspiration GI: Denies: abdominal pain, nausea, vomiting, diarrhea or constipation : Denies: flank pain or difficulty urinating Musc: Denies: back pain, extremity pain or extremity swelling Neuro: Denies: headache(s), difficulty walking or confusion Medications/Allergies Home Medications Medication Instructions Recorded Confirmed Last Taken Type tamsulosin 0.4 mg capsule 0.4 mg PO QPM 07/01/19 01/11/22 01/10/22 History Sole Supports #1 ea 07/15/19 01/11/22 Unknown Rx carbon fiber #1 each 11/27/19 01/11/22 Unknown Rx Gel toe sleeve, right hallux #1 ea 12/12/19 01/11/22 Unknown Rx acetaminophen 500 mg tablet 1,000 mg PO Q4H PRN 12/10/21 01/11/22 01/11/22 15:00 History 1000 mg ibuprofen-diphenhydramine citrate 1 tab PO BEDTIME 12/10/21 01/11/22 01/11/22 00:00 History 200 mg-38 mg tablet (Advil PM) lactulose 10 gram/15 mL oral 15 ml PO DAILY PRN #300 ml 12/12/21 01/11/22 01/10/22 Rx solution lorazepam 1 mg tablet 0.5 - 1 mg PO Q6H PRN #30 tab 12/29/21 01/11/22 Unknown Rx olanzapine 5 mg tablet 5 mg PO QPM #30 tab 12/29/21 01/11/22 01/07/22 Rx prochlorperazine maleate 10 mg 10 mg PO Q4H PRN #30 tab 12/29/21 01/11/22 Unknown Rx tablet (Compazine) folic acid 1 mg tablet 1 mg PO QPM #90 tab 01/04/22 01/11/22 01/10/22 Rx prednisone 50 mg tablet See Rx Instructions .ROUTE 01/04/22 01/11/22 01/07/22 Rx .COMPLEX 21 Days #10 tab finished 01/07/22 pantoprazole 40 mg tablet,delayed 40 mg PO BEDTIME #14 tab 01/08/22 01/11/22 01/11/22 14:30 Rx release (Protonix) allopurinol 300 mg tablet 300 mg PO QAM 01/11/22 01/11/22 01/11/22 06:30 History amlodipine 5 mg tablet 5 mg PO QAM 01/11/22 01/11/22 01/11/22 06:30 History dexamethasone 4 mg tablet 2 mg PO QAM 01/11/22 01/11/22 01/11/22 History fluconazole 100 mg tablet 100 mg PO QAM 01/11/22 01/11/22 01/11/22 06:30 History (Diflucan) sennosides 8.6 mg-docusate sodium 2 tab PO BID 01/11/22 01/11/22 01/11/22 06:30 History 50 mg tablet (Senokot-S) sulfamethoxazole 800 1 tab PO .ON MON,WED,FRI 01/11/22 01/11/22 Unknown History mg-trimethoprim 160 mg tablet (Bactrim DS) valacyclovir 500 mg tablet 500 mg PO QAM 01/11/22 01/11/22 01/11/22 06:30 History see pharmacy comment Allergies Allergy/AdvReac Type Severity Reaction Status Date / Time meperidine [From Demerol] Allergy Mild ADR/ALGY-Hy Verified 01/10/22 08:46 potension Opioids - Morphine Analogues Allergy Mild ADR/ALGY-Hy Verified 01/10/22 08:46 potension oxycodone [From Percocet] Allergy Mild ADR/ALGY-Hy Verified 01/10/22 08:46 potension Current Medications Generic Name Dose Route Start Last Admin Trade Name Freq PRN Reason Stop Dose Admin Hydrocodone Bitart/Acetaminophen 1 tab 01/11/22 18:06 01/12/22 10:54 Hydrocodone-Acetaminophen 5-325 Mg Tablet PO 1 tab Q4H PRN Administration MODERATE TO SEVERE PAIN Allopurinol 300 mg 01/12/22 06:00 01/13/22 05:01 Allopurinol 300 Mg Tablet PO 300 mg QAM REJI Administration Amlodipine Besylate 5 mg 01/12/22 06:00 01/13/22 05:01 Amlodipine 5 Mg Tablet PO 5 mg QAM REJI Administration Bisacodyl 10 mg 01/11/22 18:06 01/12/22 20:24 Bisacodyl 5 Mg Tablet PO 10 mg DAILY PRN Administration Constipation (see protocol) Protocol Dexamethasone 10 mg 01/13/22 09:00 01/13/22 08:30 Dexamethasone 10 Mg/Ml Inj IVP 10 mg DAILY REJI Administration Folic Acid 1 mg 01/12/22 18:00 01/12/22 20:24 Folic Acid 1 Mg Tablet PO 1 mg QPM REJI Administration Piperacillin Sod/Tazobactam 50 mls @ 12.5 mls/hr 01/12/22 04:30 01/13/22 12:50 Sod 3.375 gm/ Sodium Chloride IV 12.5 mls/hr Q8H REJI Administration Protocol Sodium Chloride 1,000 mls @ 50 mls/hr 01/13/22 11:30 01/13/22 12:59 Sodium Chloride 0.9% IV 50 mls/hr .Q20H REJI Administration Pantoprazole Sodium 40 mg 01/11/22 21:00 01/12/22 20:[address] 40 Mg Tablet PO 40 mg BEDTIME REJI Administration Tamsulosin HCl 0.4 mg 01/12/22 18:00 01/12/22 20:24 Tamsulosin 0.4 Mg Capsule PO 0.4 mg QPM REJI Administration PFSH Acute PFSH: Medical History BPH (benign prostatic hyperplasia) 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 Decubitus skin ulcer Diffuse large B-cell lymphoma of extranodal site Fracture of clavicle, left, closed Hallux rigidus of both feet History of fracture of clavicle Peripheral neuropathy Protein-energy malnutrition Surgical History History of cataract surgery Bilateral cataract excisions Hx of repair of rotator cuff S/P arthroscopic surgery of left knee S/P lymph node biopsy (11/17/21) Core needle biopsy of left supraclavicular lymph node Status post surgical removal of malignant neoplasm of skin Family History Father Cancer Brother Diabetes Denies family history of CAD (coronary artery disease) Clotting disorder Dementia Hyperlipidemia Psychiatric illness Chronic kidney disease (CKD) Suicide Anesthesia complication Bleeding disorder Family history of premature coronary artery disease Lung disease Hypertension Stroke Social History Smoking and tobacco status: former smoker Quit status (tobacco): has quit using tobacco Second hand smoke exposure: Yes Smoking risk assessment/counseling performed?: Yes Alcohol intake: never Desire information about alcohol rehabilitation?: No Counseling given: No Desire information about substance/drug rehabilitation?: No Counseling given: No Adopted: No Caregiver/support person: No Lives independently: Yes Household members: spouse Housing: House Marital status: Current occupational status: retired Current occupational exposures/hazards: No History of recent travel: No Current gender identity: Male Vitals/I&O/Wt Last Vital Signs Temp 97.9 F 01/13/22 12:00 Pulse 97 01/13/22 12:00 Resp 18 01/13/22 12:00 BP 133/64 01/13/22 12:00 Pulse Ox 92 01/13/22 12:00 01/13/22 01/13/22 01/13/22 06:59 14:59 22:59 Intake Total 460 / 1510 550 / 550 Output Total 900 / 3700 Balance -440 / -2190 550 / 550 Weight last 48 hrs Weight 216 lb 6.4 oz Weight 205 lb Physical Exam Narrative: He is alert in no obvious distress. Answers questions slowly but appropriately. He has no palpable pain in the thoracic or lumbar spine. Has negative logroll laterally. Skin is warm to the touch feet are warm good cap refill he is able to move both lower extremities slowly. Appears to be neurovascular intact and fires in all motor groups of both lower extremities. Feet are warm good cap refill dorsalis pedis and posterior tib pulses are palpable. Calves are supple no medial thigh tenderness. HENMT: COMMON NORMALS: normocephalic and atraumatic HEAD & SCALP: normocephalic and atraumatic Resp: OTHER: Labored breathing he is on oxygen via nasal cannula Cardio: COMMON NORMALS: regular rate and regular rhythm RATE: regular rate RHYTHM: regular rhythm GI: COMMON NORMALS: Soft to palpation and non-tender PALPATION: Yes Soft to palpation : COMMON NORMALS: Yes no CVA tenderness BLADDER/KIDNEY EXAM: Yes no CVA tenderness Back/Pelvis: COMMON NORMALS: no CVA tenderness Psych: COMMON NORMALS: cooperative Urinary Catheter Management: Robbins: Cath Placed During This Visit: yes Reason for Continuing Indwelling Catheter: Other Urinary Catheter Date of Insertion: 01/12/22 Urinary Catheter Time of Insertion: 01:28 Data : 01/13/22 06:24 01/13/22 06:24 Micro: Microbiology 01/12/22 09:35 Blood Culture - Preliminary Blood NEGATIVE TO DATE 01/12/22 09:30 Blood Culture - Preliminary Blood NEGATIVE TO DATE 01/12/22 04:14 Urine Culture - Preliminary Urine,Clean Catch A&P Assessment and plan (1) Back pain: At this point will obtain a thoracic and lumbar MRI scan. We will see him back after those studies in the meantime keep him bedrest. Discussed this with the family they understand all questions were discussed. Status: Acute Coding Level of Care Code Acute [employer] for Tanisha Begum Diagnoses Back pain M54.9
[2022-01-13] MEDS: folic acid 1 mg Tablet PO (17:53)
[2022-01-13] MEDS: tamsulosin 0.4 mg Capsule PO (17:53)
[2022-01-13] MEDS: pantoprazole DR 40 mg Tablet PO (20:06)
[2022-01-14] VITALS (8 sets, daily range): BP systolic 114–133; BP diastolic 64–79; PULSE 86–115; RESP 16–20; TEMP 36.4–36.9; O2SAT 92–98
[2022-01-14] MEDS: piperacillin-tazobactam 3.375 GM in sodium chloride 0.9% (plus) 50 ML IV ×3 (04:27→20:31)
[2022-01-14] MEDS: allopurinol 300 mg Tablet PO (05:09)
[2022-01-14] MEDS: amlodipine 5 mg Tablet PO (05:09)
[2022-01-14 06:02] LABS: Hematocrit 22.9 % (42.0-52.0); Hemoglobin 7.9 g/dL (11.7-16.6); Mean Corpuscular HGB Conc 34.5 g/dL (30.0-36.0); Mean Corpuscular Hemoglobin 31.6 pg (28.0-34.0); Mean Corpuscular Volume 91.6 fl (80-94); Mean Platelet Volume 11.9 fL (7.4-10.4); Platelet Count 35 10^3/cmm (130-400); Red Cell Distribution Width 14.7 % (12.1-15.1); White Blood Count 2.2 10^3/uL (4.0-10.0)
[2022-01-14 06:41] LABS: INR 1.26 (0.8-1.2)
[2022-01-14 06:42] LABS: Absolute Segmented Neutrophil 1.5 10/cmm (1.6-7.1); Band Neutrophils Absolute 0.6 10^3/cmm (0.0-1.2); Eosinophils 0 %; Lymphocytes 2 %; Partial Thromboplastin Time 30.4 SECONDS (23.9-36.7); Segmented Neutrophils 67 %; Slide Review Slide Review Perform; Total Cells Counted 100 (0-100)
[2022-01-14 06:43] LABS: Basophilic Stippling Trace; Hypochromasia Trace; Platelet Estimate Decreased (Normal)
--- NOTE | 2022-01-14 07:04 | P.PN_ITS ---
Subjective Subjective: Patient was resting comfortably when I walked in this morning. Patient denies any back pain. He stated he was up walking yesterday Vitals/I&O/Wt Last Vital Signs Temp 98.4 F 01/14/22 04:00 Pulse 89 01/14/22 04:00 Resp 19 H 01/14/22 04:00 BP 133/71 01/14/22 04:00 Pulse Ox 95 01/14/22 04:00 01/13/22 01/14/22 01/14/22 22:59 06:59 14:59 Intake Total 290 / 840 690 / 1530 Output Total 800 / 800 600 / 1400 Balance -510 / 40 90 / 130 Weight last 48 hrs Weight 215 lb Weight 216 lb 6.4 oz Weight 216 lb 6.4 oz Physical Exam 2 Narrative: 5 / 5 motor strength in bilateral lower extremities. Sensation intact. Urinary Catheter Management: Robbins: Cath Placed During This Visit: yes Reason for Continuing Indwelling Catheter: Acute Urinary Retention or Obstruction Urinary Catheter Date of Insertion: 01/12/22 Urinary Catheter Time of Insertion: 01:28 Data : 01/14/22 05:31 01/13/22 06:24 Micro: Microbiology 01/12/22 09:35 Blood Culture - Preliminary Blood NEGATIVE TO DATE 01/12/22 09:30 Blood Culture - Preliminary Blood NEGATIVE TO DATE 01/12/22 04:14 Urine Culture - Preliminary Urine,Clean Catch A&P Assessment and plan (1) Diffuse large B-cell lymphoma of extranodal site: CT scan showed diffuse lymphoma throughout the spine. At this point MRI is ordered. Clinically patient seems to be doing well I am not sure that we would do anything new with the information from the MRI however it might be nice just to see where the lymphoma is and how much is compressing on the spinal cord or any other critical structures. Status: Acute Attestations Medical Necessity Statement*: Per primary service Coding Level of Care Code Acute [employer] for Tanisha Begum Diagnoses Diffuse large B-cell lymphoma of extranodal site C83.39
[2022-01-14 07:17] LABS: Fibrinogen 367 mg/dL (174-498)
[2022-01-14] MEDS: dexamethasone 10 mg/mL INJ IVP (08:38)
[2022-01-14] MEDS: sodium chloride 0.9% 1,000 ML 50 ML IV (08:44)
[2022-01-14 09:13] LABS: Alanine Aminotransferase 102 U/L (0-41); Alkaline Phosphatase 450 IU/L (40-130); Anion Gap 15.7 (5-19); Aspartate Amino Transferase 40 U/L (0-40); Blood Urea Nitrogen 28 mg/dL (8-23); Calcium 7.4 mg/dL (8.5-10.5); Carbon Dioxide 22 mmol/L (22-29); Chloride 94 mmol/L (98-107); Creatinine Clr Calc Pharmacy 89.1342; Globulin 1.6 g/dL (1.3-4.6); Glucose 148 mg/dL (65-115); Osmolality Calculated 274 mOsm/kg (285-295); Potassium 3.7 mmol/L (3.5-5.1); Sodium 128 mmol/L (136-145); Total Bilirubin 0.6 mg/dL (0.15-1.2); Total Protein 4.6 g/dL (6.6-8.7)
--- NOTE | 2022-01-14 10:15 | MRR_ITS ---
PROCEDURE INFORMATION: Exam: MR Lumbar Spine Without Contrast Exam date and time: 01/14/2022 4:40 PM Age: 81 years old Clinical indication: Low back pain; Additional info: Severe back pain TECHNIQUE: Imaging protocol: Magnetic resonance imaging of the lumbar spine without contrast. COMPARISON: CT lumbar spine wo con* [id number] 01/12/2022 2:23 PM FINDINGS: Limitations: Study is significantly limited by patient motion. Bones/joints: There are bone marrow replacement lesions at T12, L1, L2 and L3 consistent with bone metastasis as identified on the recent CT scan of the lumbar spine. There is also prominent lytic metastasis involving the right iliac bone adjacent to the posterior aspect of the right sacroiliac joint. No fracture is identified. Spinal cord: Tip of the conus is at L1 and is unremarkable. T12-L1: Mild degenerative changes in the facet joints. No significant central canal or foraminal stenosis. L1-L2: Moderate diffuse posterior bulging of the disc. Hypertrophic degenerative changes in the facet joints without significant sagittal or foraminal stenosis. L2-L3: Hypertrophic degenerative changes in the facet joints with medial spur formation and moderate posterior bulging of the disc. Mild to moderate central canal stenosis narrowing the sagittal diameter of the canal to approximately 9 mm. Severe bilateral foraminal stenosis. L3-L4: Hypertrophic changes in the facet joints and hypertrophy of ligamentum flavum. Mild central canal stenosis. Moderate bilateral foraminal narrowing. L4-L5: Hypertrophic changes in the facet joints and hypertrophy of ligamentum flavum causing mild relative central canal stenosis. No focal disc herniation. Moderate foraminal narrowing on the right. L5-S1: Decreased height of the disc space without focal disc herniation. Degenerative changes in facet joints with moderate right and severe left foraminal narrowing. Soft tissues: Unremarkable. MR/MR lumbar spine wo con* [id number] IMPRESSION: 1. Extensive bone metastasis 2. No acute fracture 3. Degenerative changes and multilevel spinal stenosis as described.
--- NOTE | 2022-01-14 10:15 | MRR_ITS ---
PROCEDURE INFORMATION: Exam: MR Thoracic Spine Without Contrast Exam date and time: 01/14/2022 4:18 PM Age: 81 years old Clinical indication: Pain in thoracic spine; Additional info: Severe back pain TECHNIQUE: Imaging protocol: Magnetic resonance imaging of the thoracic spine without contrast. COMPARISON: CT thoracic spin wo con* [id number] 01/12/2022 2:18 PM FINDINGS: Limitations: Study is significantly limited by patient motion. Bones/joints: There are marrow replacement lesions consistent with bone metastasis in the vertebral bodies at T6, T7, T8, T11, T12 and L1. There is metastatic lesion also involving the right pedicle and lamina and transverse process of T11 and there is also some metastatic disease seen at the edge of the exam involving L2 vertebral body. Please see MRI of the lumbar spine. There is also metastatic lesion involving left pedicle and superior inferior articular facets of T8 and right pedicle and posterior arch at T6. The upper thoracic spine is somewhat limited due to motion but there does appear to be some metastatic disease also involving right side T4-T5. Spinal cord: There is no gross evidence for epidural mass or cord compression. The thoracic cord has a grossly normal appearance on all sequences. Discs/Spinal canal/Neural foramina: No significant disc disease. No significant spinal canal stenosis. Soft tissues: Unremarkable. MR/MR thoracic spin wo con* [id number] IMPRESSION: 1. Limited exam due to patient motion 2. 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
--- NOTE | 2022-01-14 13:47 | P.PN_ITS ---
Subjective Subjective: Patient was seen and examined this morning, denied any back pain, hyponatremia is improving, supplemental oxygen requirement is going down, working with physical therapy. Unfortunately platelet count has continued to decrease, Medications: Medication Review Details: Generic Name Dose Route Start Last Admin Trade Name Celia PRN Reason Stop Dose Admin Hydrocodone Bitart /Acetaminophen 1 tab 01/11/22 18:06 01/12/22 10:54 Hydrocodone-Acet aminophen 5-325 Mg Tablet PO 1 tab Q4H PRN Administration MODERATE TO SEVER E PAIN Allopurinol 300 mg 01/12/22 06:00 01/12/22 05:45 Allopurinol 300 Mg Tablet PO 300 mg QAM REJI Administration Amlodipine Besylat e 5 mg 01/12/22 06:00 01/12/22 05:45 Amlodipine 5 Mg Tablet PO 5 mg QAM REJI Administration Hydromorphone HCl 2 mg 01/11/22 18:54 01/12/22 07:50 Hydromorphone 1 Mg/Ml Inj 1 Ml IVP 2 mg Q4H PRN Administration pain Piperacillin Sod/T azobactam 50 mls @ 12.5 mls /hr 01/12/22 04:30 01/12/22 09:48 Sod 3.375 gm/ So dium Chloride IV Infused Q8H REJI Infusion Protocol Pantoprazole Sodiu m 40 mg 01/11/22 21:00 01/11/22 21:[address] 40 Mg Tablet PO 40 mg BEDTIME REJI Administration Vitals/I&O/Wt Last Vital Signs Temp 98.0 F 01/14/22 12:00 Pulse 91 01/14/22 12:00 Resp 17 01/14/22 12:00 BP 119/67 01/14/22 12:00 Pulse Ox 96 01/14/22 12:00 01/13/22 01/14/22 01/14/22 22:59 06:59 14:59 Intake Total 290 / 840 690 / 1530 1277.5 / 1277.5 Output Total 800 / 800 600 / 1400 Balance -510 / 40 90 / 130 1277.5 / 1277.5 Weight last 48 hrs Weight 97.522 kg Weight 98.157 kg Weight 98.157 kg Physical Exam Const: COMMON NORMALS: patient oriented x3 HENMT: COMMON NORMALS: normocephalic and atraumatic HEAD & SCALP: normocephalic and atraumatic Eye: GENERAL EYE: appearance normal, both eyes and all related structures Chest: CHEST: Yes Symmetrical chest wall rise Resp: COMMON NORMALS: clear to auscultation bilaterally EFFORT & INSPECTION: Yes symmetric chest movement AUSCULTATION: clear to auscultation bilaterally Cardio: COMMON NORMALS: regular rate, regular rhythm, S1 normal heart sound present, S2 normal heart sound present, No gallops present (Cardio), No murmurs present (Cardio), No rub (Cardio) and Peripheral pulses 2+ throughout RATE: regular rate RHYTHM: regular rhythm HEART SOUNDS: S1 normal heart sound present and S2 normal heart sound present PERIPHERAL PULSES: Peripheral pulses 2+ throughout GI: COMMON NORMALS: Normal to inspection, nondistended, normoactive bowel sounds present, Soft to palpation, non-tender, No hepatosplenomegaly present and no masses AUSCULTATION: Yes normoactive bowel sounds PALPATION: Yes Soft to palpation and Yes No hepatosplenomegaly present RECTAL EXAM: Yes deferred Extremity: COMMON NORMALS: no clubbing, cyanosis or edema and no pedal edema Neuro: COMMON NORMALS: patient oriented x3 Urinary Catheter Management: Robbins: Cath Placed During This Visit: yes Reason for Continuing Indwelling Catheter: Acute Urinary Retention or Obstruction Urinary Catheter Date of Insertion: 01/12/22 Urinary Catheter Time of Insertion: 01:28 Data : 01/14/22 05:31 01/14/22 08:21 Micro: Microbiology 01/12/22 04:14 Urine Culture - Final Urine,Clean Catch 01/12/22 09:35 Blood Culture - Preliminary Blood NEGATIVE TO DATE 01/12/22 09:30 Blood Culture - Preliminary Blood NEGATIVE TO DATE A&P Assessment and plan (1) Anemia: Status: Acute (2) Diffuse large B-cell lymphoma of extranodal site: Status: Acute (3) Hyponatremia: Status: Acute (4) Hyperbilirubinemia: Status: Acute (5) Thrombocytopenia: Status: Acute (6) Leukopenia: Status: Acute Plan 81 year old male with past medical history of diffuse B-cell lymphoma with bony metastasis , currently on chemotherapy, chemotherapy received last Monday, chronic decubitus ulcer, pathological fracture of left clavicle, gout, initially he was sent to the ER for possible Acute hemolytic transfusion reaction, as on the day of admission he had received 2 units PRBC as outpatient, for anemia. When I interacted with the patient he was predominantly complaining of severe back pain, he denied any chest pain shortness of breath, Rash, fever or chills, nausea vomiting cough. At baseline patient is very ambulatory according to the history provided by the . Based on the lab works: Patient is neither having acute hemolytic transfusion reaction, he does not have any prior history of blood transfusion, delayed hemolytic transfusion reaction is not in question. Clinically as well as based on imaging studies patient was not in volume overload it is less likely that patient was in TACO, CT chest failed to show any acute lung injury, hence TRALI is out of question. Both these diagnosis was in consideration while admitting the patient, and was discussed with ER physician. Overnight Lasix given has resulted in hyponatremia, as well as low systolic blood pressure. Assessment: Anemia Hyponatremia: Possibly secondary to overdiuresis: Leukopenia Chronic thrombocytopenia Afebrile neutropenia Severe back pain: Secondary to metastatic disease Diffuse B-cell lymphoma 5 cm lytic metastatic disease to the right ilium abutting the sacroiliac joint, Plan: S/p 2 units PRBC transfusion monitor H&H Blood culture: NTD Urine culture: NTD Monitor BMP MRI lumbar and thoracic spine: Consistent with extensive metastatic disease. Empirically on Zosyn Monitor DIC panel Pain control Bowel regimen We will keep him on dexamethasone IV Continue gentle IV hydration with normal saline 50 cc an hour Orthopedic consult Cautious use of narcotics, to avoid hypoventilation associated hypoxia CODE STATUS: Full code DVT prophylaxis: SCDs Attestations Medical Necessity Statement*: Patient is to the hospital for management of anemia thrombocytopenia. Coding Level of Care Code Acute Digester Operator Helper for Rogerg Fwd Exam Comprehensive Diagnoses Anemia D64.9 Diffuse large B-cell lymphoma of extranodal site C83.39 Hyponatremia E87.1 Hyperbilirubinemia E80.6 Thrombocytopenia D69.6 Leukopenia D72.819
[2022-01-14] MEDS: bisacodyl 5 mg Tablet 10 MG PO (17:53)
[2022-01-14] MEDS: tamsulosin 0.4 mg Capsule PO (17:54)
[2022-01-14] MEDS: folic acid 1 mg Tablet PO (17:54)
[2022-01-14] MEDS: pantoprazole DR 40 mg Tablet PO (20:31)
[2022-01-15] VITALS (9 sets, daily range): BP systolic 107–132; BP diastolic 61–79; PULSE 68–105; RESP 12–21; TEMP 36.6–37; O2SAT 93–98
[2022-01-15] MEDS: piperacillin-tazobactam 3.375 GM in sodium chloride 0.9% (plus) 50 ML IV ×2 (03:53→11:57)
[2022-01-15] MEDS: sodium chloride 0.9% 1,000 ML 50 ML IV (03:53)
[2022-01-15] MEDS: dexamethasone 4 mg Tablet 2 MG PO (09:20)
[2022-01-15] MEDS: fluconazole 100 mg Tablet PO (09:21)
[2022-01-15] MEDS: amlodipine 5 mg Tablet PO (09:21)
[2022-01-15] MEDS: allopurinol 300 mg Tablet PO (09:21)
--- NOTE | 2022-01-15 10:02 | PC.SOCIAL ---
IMM Update pg 2 of IMM updated and reviewed w/ patient and his . Copy provided and Copy placed in chart dated and initialed.
--- NOTE | 2022-01-15 10:21 | PC.NURSE ---
port accessed with no blood return and unable to flush. port deaccessed d/t inability to flush or aspirate.
[2022-01-15] MEDS: lactulose oral liq 20 gm/30 mL UDC PO ×2 (11:56→21:10)
--- NOTE | 2022-01-15 12:02 | P.PN_ITS ---
Subjective Subjective: Patient was seen and examined this morning, continue to be weak, lethargic,no significant improvement since yesterday,family at bedside.Hb is trending down, as well as the platelet count, no evident bleeding or petechiae , purpura noted. Medications: Medication Review Details: Generic Name Dose Route Start Last Admin Trade Name Freq PRN Reason Stop Dose Admin Hydrocodone Bitart /Acetaminophen 1 tab 01/11/22 18:06 01/12/22 10:54 Hydrocodone-Acet aminophen 5-325 Mg Tablet PO 1 tab Q4H PRN Administration MODERATE TO SEVER E PAIN Allopurinol 300 mg 01/12/22 06:00 01/12/22 05:45 Allopurinol 300 Mg Tablet PO 300 mg QAM REJI Administration Amlodipine Besylat e 5 mg 01/12/22 06:00 01/12/22 05:45 Amlodipine 5 Mg Tablet PO 5 mg QAM REJI Administration Hydromorphone HCl 2 mg 01/11/22 18:54 01/12/22 07:50 Hydromorphone 1 Mg/Ml Inj 1 Ml IVP 2 mg Q4H PRN Administration pain Piperacillin Sod/T azobactam 50 mls @ 12.5 mls /hr 01/12/22 04:30 01/12/22 09:48 Sod 3.375 gm/ So dium Chloride IV Infused Q8H REJI Infusion Protocol Pantoprazole Sodiu m 40 mg 01/11/22 21:00 01/11/22 21:[address] 40 Mg Tablet PO 40 mg BEDTIME REJI Administration Vitals/I&O/Wt Last Vital Signs Temp 98.6 F 01/15/22 08:00 Pulse 97 01/15/22 08:30 Resp 12 01/15/22 08:00 BP 127/79 01/15/22 08:00 Pulse Ox 98 01/15/22 08:30 01/14/22 01/15/22 01/15/22 22:59 06:59 14:59 Intake Total 170 / 1447.5 1727.5 / 3175.0 340 / 340 Output Total 900 / 900 600 / 1500 250 / 250 Balance -730 / 547.5 1127.5 / 1675.0 90 / 90 Weight last 48 hrs Weight 95.028 kg Weight 97.522 kg Weight 98.157 kg Physical Exam Const: COMMON NORMALS: patient oriented x3 HENMT: COMMON NORMALS: normocephalic and atraumatic HEAD & SCALP: normocephalic and atraumatic Eye: GENERAL EYE: appearance normal, both eyes and all related structures Chest: CHEST: Yes Symmetrical chest wall rise Resp: COMMON NORMALS: clear to auscultation bilaterally EFFORT & INSPECTION: Yes symmetric chest movement AUSCULTATION: clear to auscultation bilaterally Cardio: COMMON NORMALS: regular rate, regular rhythm, S1 normal heart sound present, S2 normal heart sound present, No gallops present (Cardio), No murmurs present (Cardio), No rub (Cardio) and Peripheral pulses 2+ throughout RATE: regular rate RHYTHM: regular rhythm HEART SOUNDS: S1 normal heart sound present and S2 normal heart sound present PERIPHERAL PULSES: Peripheral pulses 2+ throughout GI: COMMON NORMALS: Normal to inspection, nondistended, normoactive bowel sounds present, Soft to palpation, non-tender, No hepatosplenomegaly present and no masses AUSCULTATION: Yes normoactive bowel sounds PALPATION: Yes Soft to palpation and Yes No hepatosplenomegaly present RECTAL EXAM: Yes deferred Extremity: COMMON NORMALS: no clubbing, cyanosis or edema and no pedal edema Neuro: COMMON NORMALS: patient oriented x3 Urinary Catheter Management: Robbins: Cath Placed During This Visit: yes Reason for Continuing Indwelling Catheter: Acute Urinary Retention or Obstruction Urinary Catheter Date of Insertion: 01/12/22 Urinary Catheter Time of Insertion: 01:28 Data : 01/15/22 10:22 01/15/22 10:22 Micro: Microbiology 01/12/22 04:14 Urine Culture - Final Urine,Clean Catch A&P Assessment and plan (1) Anemia: Status: Acute (2) Diffuse large B-cell lymphoma of extranodal site: Status: Acute (3) Hyponatremia: Status: Acute (4) Hyperbilirubinemia: Status: Acute (5) Thrombocytopenia: Status: Acute (6) Leukopenia: Status: Acute Plan 81 year old male with past medical history of diffuse B-cell lymphoma with bony metastasis , currently on chemotherapy, chemotherapy received last Monday, chronic decubitus ulcer, pathological fracture of left clavicle, gout, initially he was sent to the ER for possible Acute hemolytic transfusion reaction, as on the day of admission he had received 2 units PRBC as outpatient, for anemia. When I interacted with the patient he was predominantly complaining of severe back pain, he denied any chest pain shortness of breath, Rash, fever or chills, nausea vomiting cough. At baseline patient is very ambulatory according to the history provided by the . Based on the lab works: Patient is neither having acute hemolytic transfusion reaction, he does not have any prior history of blood transfusion, delayed hemolytic transfusion reaction is not in question. Clinically as well as based on imaging studies patient was not in volume overload it is less likely that patient was in TACO, CT chest failed to show any acute lung injury, hence TRALI is out of question. Both these diagnosis was in consideration while admitting the patient, and was discussed with ER physician. Overnight Lasix given has resulted in hyponatremia, as well as low systolic blood pressure. Assessment: Anemia Hyponatremia: Possibly secondary to overdiuresis: Leukopenia Chronic thrombocytopenia with acute Severe worsening likely secondary to recent chemotherapy. 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 Was Empirically on Zosyn has been discontinued as the cultures have remained negative, and to prevent medication associated thrombocytopenia.Will Narrow Abx coverage to rocephin. Monitor DIC panel Pain control Bowel regimen Was on dexamethasone IV Was on gentle IV hydration with normal saline 50 cc an hour Orthopedic consult Cautious use of narcotics, to avoid hypoventilation associated hypoxia CODE STATUS: Full code DVT prophylaxis: SCDs Attestations Medical Necessity Statement*: Patient needs to be in hospital for the m anagement of severe thrombocytopenia, anemia . Time Spent in Patient Care: Greater than 35 minutes (>than 50% of time spent in counselling and/or direct pt care on unit) . Coding Level of Care Code Acute Blacking Machine Operator for g Fwd Exam Comprehensive Diagnoses Anemia D64.9 Diffuse large B-cell lymphoma of extranodal site C83.39 Hyponatremia E87.1 Hyperbilirubinemia E80.6 Thrombocytopenia D69.6 Leukopenia D72.819
--- NOTE | 2022-01-15 12:56 | PC.NURSE ---
22 gauge, aspirates and flushes sluggishly
[2022-01-15 14:01] LABS: Basophils # 0.1 10^3/uL (0.0-0.1); Basophils % 1.4 %; Hematocrit 21.1 % (42.0-52.0); Hemoglobin 7.6 g/dL (11.7-16.6); Lymphocytes # 0.1 10^3/uL (0.8-4.8); Mean Corpuscular Hemoglobin 31.3 pg (28.0-34.0); Mean Corpuscular Volume 86.8 fl (80-94); Mean Platelet Volume 12.1 fL (7.4-10.4); Monocytes # 0.1 10^3/uL (0.2-0.9); Monocytes % 3.3 %; Neutrophils # 2.72 10^3/uL (1.8-7.7); Neutrophils % 75.2 %; Nucleated Red Blood Cells # 0.2 /100WBC; Nucleated Red Blood Cells % 5.2 %; Platelet Count 31 10^3/cmm (130-400); Red Blood Count 2.43 10^6/uL (4.1-5.3); Red Cell Distribution Width 14.6 % (12.1-15.1); White Blood Count 3.6 10^3/uL (4.0-10.0)
[2022-01-15 14:12] LABS: Alanine Aminotransferase 80 U/L (0-41); Alkaline Phosphatase 430 IU/L (40-130); Anion Gap 10.4 (5-19); Aspartate Amino Transferase 28 U/L (0-40); Blood Urea Nitrogen 28 mg/dL (8-23); Calcium 7.6 mg/dL (8.5-10.5); Carbon Dioxide 23 mmol/L (22-29); Chloride 95 mmol/L (98-107); Globulin 1.6 g/dL (1.3-4.6); Glucose 148 mg/dL (65-115); Osmolality Calculated 268 mOsm/kg (285-295); Potassium 3.4 mmol/L (3.5-5.1); Sodium 125 mmol/L (136-145); Total Bilirubin 0.6 mg/dL (0.15-1.2); Total Protein 4.6 g/dL (6.6-8.7)
[2022-01-15 14:20] LABS: Slide Review Slide Review Perform
[2022-01-15] MEDS: lidocaine 1% 5 ML in potassium chloride premix 100 ML 25 ML IV (15:19)
[2022-01-15] MEDS: FUROsemide 10 mg/mL SDV 2mL 20 MG IVP (15:20)
[2022-01-15] MEDS: lanolin oint 7 gm 1 APPLIC TOPICAL ×2 (15:40→17:34)
[2022-01-15] MEDS: sodium chloride 1 gm Tablet 2 GM PO (17:30)
[2022-01-15] MEDS: folic acid 1 mg Tablet PO (17:31)
[2022-01-15] MEDS: HYDROcodone-acetaminophen 5-325 mg Tablet 1 TAB PO (17:32)
[2022-01-15] MEDS: tamsulosin 0.4 mg Capsule PO (17:33)
[2022-01-15] MEDS: pantoprazole DR 40 mg Tablet PO (21:09)
[2022-01-16] VITALS (13 sets, daily range): BP systolic 102–148; BP diastolic 64–75; PULSE 83–102; RESP 14–18; TEMP 36.3–37.1; O2SAT 93–99
[2022-01-16 06:25] LABS: Basophils % 0.3 %; Hemoglobin 6.8 g/dL (11.7-16.6); Lymphocytes # 0.1 10^3/uL (0.8-4.8); Lymphocytes % 2.2 %; Mean Corpuscular HGB Conc 36.2 g/dL (30.0-36.0); Mean Corpuscular Hemoglobin 31.8 pg (28.0-34.0); Mean Corpuscular Volume 87.9 fl (80-94); Mean Platelet Volume 10.6 fL (7.4-10.4); Monocytes # 0.1 10^3/uL (0.2-0.9); Monocytes % 3.4 %; Neutrophils # 2.51 10^3/uL (1.8-7.7); Neutrophils % 77.7 %; Nucleated Red Blood Cells # 0.1 /100WBC; Nucleated Red Blood Cells % 4.3 %; Red Blood Count 2.14 10^6/uL (4.1-5.3); Red Cell Distribution Width 14.6 % (12.1-15.1); White Blood Count 3.2 10^3/uL (4.0-10.0)
[2022-01-16 06:41] LABS: INR 1.17 (0.8-1.2)
[2022-01-16 06:42] LABS: Partial Thromboplastin Time 24.4 SECONDS (23.9-36.7)
[2022-01-16 06:43] LABS: Alanine Aminotransferase 61 U/L (0-41); Albumin Level 2.8 g/dL (3.5-5.2); Alkaline Phosphatase 379 IU/L (40-130); Anion Gap 11.7 (5-19); Aspartate Amino Transferase 19 U/L (0-40); Blood Urea Nitrogen 27 mg/dL (8-23); Calcium 7.4 mg/dL (8.5-10.5); Carbon Dioxide 24 mmol/L (22-29); Chloride 103 mmol/L (98-107); Globulin 1.2 g/dL (1.3-4.6); Glucose 144 mg/dL (65-115); Osmolality Calculated 288 mOsm/kg (285-295); Potassium 3.7 mmol/L (3.5-5.1); Sodium 135 mmol/L (136-145); Total Bilirubin 0.5 mg/dL (0.15-1.2)
[2022-01-16 06:48] LABS: Fibrinogen 218 mg/dL (174-498)
[2022-01-16 07:46] LABS: Slide Review Slide Review Perform
[2022-01-16 07:50] LABS: Hematocrit 18.8 % (42.0-52.0)
[2022-01-16 07:51] LABS: Platelet Count 25 10^3/cmm (130-400)
[2022-01-16] MEDS: cefTRIAXone 1,000 MG in sodium chloride 0.9% (plus) 50 ML 100 MG IV (09:12)
[2022-01-16] MEDS: sodium chloride 1 gm Tablet 2 GM PO (09:19)
[2022-01-16] MEDS: fluconazole 100 mg Tablet PO (09:20)
[2022-01-16] MEDS: allopurinol 300 mg Tablet PO (09:21)
[2022-01-16] MEDS: dexamethasone 4 mg Tablet 2 MG PO (09:21)
[2022-01-16] MEDS: amlodipine 5 mg Tablet PO (09:21)
[2022-01-16] MEDS: sodium chloride 0.9% (100 ml) 100 ML (11:35)
--- NOTE | 2022-01-16 13:19 | PC.NURSE ---
Patient found attempting to place legs over the side of the bed, patient was repositioned into the bed and bed alarm was reset. Patient's came back from getting lunch and found patient attempting to put legs over the side of bed again. Patient was again repositioned in bed. Patient denies any pain, just stated he was wanting to get up to the chair. Reminded patient that he was in the chair for approx 20 minutes this morning and became weak and uncomfortable. Patient agreed. Patient's began feeding patient soup for lunch and patient appears pleasant and comfortable at this time. Bed Exit alarm sensitivity increased and reset prior to exiting the room. Patient's reports he is very rarely this agitated .
--- NOTE | 2022-01-16 13:29 | P.PN_ITS ---
Subjective Subjective: Patient was seen and examined this morning, continue to be weak, lethargic,no significant improvement since yesterday,family at bedside.Hb is trending down, as well as the platelet count, no evident bleeding noted, current plan is for transfusion of 1 unit PRBC , monitor CBC. Medications: Medication Review Details: Generic Name Dose Route Start Last Admin Trade Name Freq PRN Reason Stop Dose Admin Hydrocodone Bitart /Acetaminophen 1 tab 01/11/22 18:06 01/12/22 10:54 Hydrocodone-Acet aminophen 5-325 Mg Tablet PO 1 tab Q4H PRN Administration MODERATE TO SEVER E PAIN Allopurinol 300 mg 01/12/22 06:00 01/12/22 05:45 Allopurinol 300 Mg Tablet PO 300 mg QAM REJI Administration Amlodipine Besylat e 5 mg 01/12/22 06:00 01/12/22 05:45 Amlodipine 5 Mg Tablet PO 5 mg QAM REJI Administration Hydromorphone HCl 2 mg 01/11/22 18:54 01/12/22 07:50 Hydromorphone 1 Mg/Ml Inj 1 Ml IVP 2 mg Q4H PRN Administration pain Piperacillin Sod/T azobactam 50 mls @ 12.5 mls /hr 01/12/22 04:30 01/12/22 09:48 Sod 3.375 gm/ So dium Chloride IV Infused Q8H REJI Infusion Protocol Pantoprazole Sodiu m 40 mg 01/11/22 21:00 01/11/22 21:[address] 40 Mg Tablet PO 40 mg BEDTIME REJI Administration Vitals/I&O/Wt Last Vital Signs Temp 97.8 F 01/16/22 12:23 Pulse 96 01/16/22 12:23 Resp 16 01/16/22 12:23 BP 130/64 01/16/22 12:23 Pulse Ox 94 01/16/22 12:23 01/15/22 01/16/22 01/16/22 22:59 06:59 14:59 Intake Total 1171.667 / 1511.667 610 / 2121.667 630 / 630 Output Total 1400 / 1650 700 / 2350 Balance -228.333 / -138.333 -90 / -228.333 630 / 630 Weight last 48 hrs Weight 92.941 kg Weight 95.028 kg Physical Exam Const: COMMON NORMALS: patient oriented x3 HENMT: COMMON NORMALS: normocephalic and atraumatic HEAD & SCALP: normocephalic and atraumatic Eye: GENERAL EYE: appearance normal, both eyes and all related structures Chest: CHEST: Yes Symmetrical chest wall rise Resp: COMMON NORMALS: clear to auscultation bilaterally EFFORT & INSPECTION: Yes symmetric chest movement AUSCULTATION: clear to auscultation bilaterally Cardio: COMMON NORMALS: regular rate, regular rhythm, S1 normal heart sound present, S2 normal heart sound present, No gallops present (Cardio), No murmurs present (Cardio), No rub (Cardio) and Peripheral pulses 2+ throughout RATE: regular rate RHYTHM: regular rhythm HEART SOUNDS: S1 normal heart sound present and S2 normal heart sound present PERIPHERAL PULSES: Peripheral pulses 2+ throughout GI: COMMON NORMALS: Normal to inspection, nondistended, normoactive bowel sounds present, Soft to palpation, non-tender, No hepatosplenomegaly present and no masses AUSCULTATION: Yes normoactive bowel sounds PALPATION: Yes Soft to palpation and Yes No hepatosplenomegaly present RECTAL EXAM: Yes deferred Extremity: COMMON NORMALS: no clubbing, cyanosis or edema and no pedal edema Neuro: COMMON NORMALS: patient oriented x3 Urinary Catheter Management: Robbins: Cath Placed During This Visit: yes Reason for Continuing Indwelling Catheter: Acute Urinary Retention or Obstruction Urinary Catheter Date of Insertion: 01/12/22 Urinary Catheter Time of Insertion: 01:28 Data : 01/16/22 06:01 01/16/22 06:01 A&P Assessment and plan (1) Anemia: Status: Acute (2) Diffuse large B-cell lymphoma of extranodal site: Status: Acute (3) Hyponatremia: Status: Acute (4) Hyperbilirubinemia: Status: Acute (5) Thrombocytopenia: Status: Acute (6) Leukopenia: Status: Acute Plan 81 year old male with past medical history of diffuse B-cell lymphoma with bony metastasis , currently on chemotherapy, chemotherapy received last Monday, chronic decubitus ulcer, pathological fracture of left clavicle, gout, initially he was sent to the ER for possible Acute hemolytic transfusion reaction, as on the day of admission he had received 2 units PRBC as outpatient, for anemia. When I interacted with the patient he was predominantly complaining of severe back pain, he denied any chest pain shortness of breath, Rash, fever or chills, nausea vomiting cough. At baseline patient is very ambulatory according to the history provided by the . Based on the lab works: Patient is neither having acute hemolytic transfusion reaction, he does not have any prior history of blood transfusion, delayed hemolytic transfusion reaction is not in question. Clinically as well as based on imaging studies patient was not in volume overload it is less likely that pat ient was in TACO, CT chest failed to show any acute lung injury, hence TRALI is out of question. Both these diagnosis was in consideration while admitting the patient, and was discussed with ER physician. Overnight Lasix given has resulted in hyponatremia, as well as low systolic blood pressure. Assessment: Anemia Hyponatremia: Possibly secondary to overdiuresis: Leukopenia Chronic thrombocytopenia with acute Severe worsening likely secondary to recent chemotherapy. Low clinical suspicion for TTP ( Now schitocytes on PBS,Low Plasmic SCore, ) ITP, hemolytic uremic syndrome, DIC , HIT Afebrile neutropenia Severe Back pain: Secondary to metastatic disease Diffuse B-cell lymphoma 5 cm lytic metastatic disease to the right ilium abutting the sacroiliac joint, Plan: S/p 3 units PRBC transfusion monitor H&H, transfuse to manitain Hb >7 Monitor P/C Blood culture: NTD Urine culture: NTD Monitor BMP MRI lumbar and thoracic spine: Consistent with extensive metastatic disease. Was Empirically on Zosyn has been discontinued as the cultures have remained negative, and to prevent medication associated thrombocytopenia.Will Narrow Abx coverage to rocephin. Monitor DIC panel Pain control Bowel regimen Was on dexamethasone IV Was on gentle IV hydration with normal saline 50 cc an hour Orthopedic consult Cautious use of narcotics, to avoid hypoventilation associated hypoxia CODE STATUS: Full code DVT prophylaxis: SCDs Attestations Medical Necessity Statement*: Patient is to be in hospital for management of anemia severe thrombocytopenia. Coding Level of Care Code Acute Work Measurement Engineer for Chg Fwd Exam Comprehensive Diagnoses Anemia D64.9 Diffuse large B-cell lymphoma of extranodal site C83.39 Hyponatremia E87.1 Hyperbilirubinemia E80.6 Thrombocytopenia D69.6 Leukopenia D72.819
[2022-01-16] MEDS: diphenhydrAMINE 50 mg/mL SDV 1mL 25 MG IVP (14:24)
[2022-01-16 15:54] LABS: Hematocrit 22.4 % (42.0-52.0); Hemoglobin 7.7 g/dL (11.7-16.6); Mean Corpuscular HGB Conc 34.4 g/dL (30.0-36.0); Mean Corpuscular Hemoglobin 31.4 pg (28.0-34.0); Mean Corpuscular Volume 91.4 fl (80-94); Red Blood Count 2.45 10^6/uL (4.1-5.3); Red Cell Distribution Width 14.5 % (12.1-15.1); White Blood Count 4.3 10^3/uL (4.0-10.0)
[2022-01-16 16:13] LABS: Platelet Count 25 10^3/cmm (130-400)
[2022-01-16 16:17] LABS: Absolute Segmented Neutrophil 3.5 10/cmm (1.6-7.1); Band Neutrophils Absolute 0.5 10^3/cmm (0.0-1.2); Eosinophils 0 %; Lymphocytes 5 %; Lymphocytes Absolute 0.2 10^3/cmm (1.2-3.4); Segmented Neutrophils 81 %; Total Cells Counted 100 (0-100)
[2022-01-16 16:18] LABS: Anisocytosis Trace; Ovalocytes Trace; Platelet Estimate Decreased (Normal); Poikilocytosis Trace; Smudge Cells Trace
[2022-01-16] MEDS: HYDROmorphone 1 mg/mL INJ 1 mL 0.5 MG IVP (16:33)
[2022-01-16] MEDS: folic acid 1 mg Tablet PO (18:31)
[2022-01-16] MEDS: tamsulosin 0.4 mg Capsule PO (18:31)
[2022-01-16] MEDS: pantoprazole DR 40 mg Tablet PO (20:55)
[2022-01-17] VITALS (7 sets, daily range): BP systolic 115–136; BP diastolic 62–72; PULSE 71–90; RESP 16–18; TEMP 36.4–37; O2SAT 95–98
[2022-01-17 05:12] LABS: Basophils % 0.6 %; Hemoglobin 7.2 g/dL (11.7-16.6); Lymphocytes # 0.1 10^3/uL (0.8-4.8); Lymphocytes % 2.3 %; Mean Corpuscular HGB Conc 35.3 g/dL (30.0-36.0); Mean Corpuscular Hemoglobin 31.6 pg (28.0-34.0); Mean Corpuscular Volume 89.5 fl (80-94); Mean Platelet Volume 11.6 fL (7.4-10.4); Monocytes # 0.1 10^3/uL (0.2-0.9); Monocytes % 3.1 %; Neutrophils # 2.73 10^3/uL (1.8-7.7); Nucleated Red Blood Cells # 0.2 /100WBC; Nucleated Red Blood Cells % 5.7 %; Red Blood Count 2.28 10^6/uL (4.1-5.3); Red Cell Distribution Width 14.7 % (12.1-15.1); White Blood Count 3.5 10^3/uL (4.0-10.0)
[2022-01-17 05:25] LABS: INR 1.21 (0.8-1.2)
[2022-01-17 05:26] LABS: Partial Thromboplastin Time 23.8 SECONDS (23.9-36.7)
[2022-01-17 05:31] LABS: Fibrinogen 164 mg/dL (174-498)
[2022-01-17 05:39] LABS: Alanine Aminotransferase 44 U/L (0-41); Albumin Level 2.9 g/dL (3.5-5.2); Alkaline Phosphatase 301 IU/L (40-130); Anion Gap 10.9 (5-19); Aspartate Amino Transferase 16 U/L (0-40); Blood Urea Nitrogen 23 mg/dL (8-23); Calcium 7.4 mg/dL (8.5-10.5); Carbon Dioxide 25 mmol/L (22-29); Chloride 103 mmol/L (98-107); Globulin 1.2 g/dL (1.3-4.6); Glucose 130 mg/dL (65-115); Osmolality Calculated 285 mOsm/kg (285-295); Potassium 3.9 mmol/L (3.5-5.1); Sodium 135 mmol/L (136-145); Total Bilirubin 0.5 mg/dL (0.15-1.2); Total Protein 4.1 g/dL (6.6-8.7)
[2022-01-17 06:04] LABS: Hematocrit 20.4 % (42.0-52.0); Platelet Count 23 10^3/cmm (130-400); Slide Review Slide Review Perform
[2022-01-17] MEDS: cefTRIAXone 1,000 MG in sodium chloride 0.9% (plus) 50 ML 100 MG IV (09:10)
[2022-01-17] MEDS: amlodipine 5 mg Tablet PO (09:10)
[2022-01-17] MEDS: dexamethasone 4 mg Tablet 2 MG PO (09:10)
[2022-01-17] MEDS: allopurinol 300 mg Tablet PO (09:10)
[2022-01-17] MEDS: fluconazole 100 mg Tablet PO (09:11)
--- NOTE | 2022-01-17 11:38 | PC.SOCIAL ---
IMM Updated Updated pt & spouse on IMM. No questions voiced. Provided pt a copy. Initialed, dated, & timed copy in chart.
[2022-01-17] MEDS: acetaminophen 325 mg Tablet 650 MG PO (14:33)
[2022-01-17] MEDS: cyclobenzaprine 10 mg Tablet 5 MG PO (14:34)
--- NOTE | 2022-01-17 15:14 | PM.PN ---
Subjective Subjective: Hospital course, labs appreciated. Examination patient lying comfortably in bed. Saturating over 92% on nasal cannula. at bedside. Patient denies any nausea, vomiting, headache. Complaining of feeling weak. States back pain is better. Had a long goals of care discussion with both patient and patient's family. Care also discussed with patient's outpatient oncologist Dr. Dickey. Patient has remained hemodynamically stable and afebrile otherwise. Vitals/I&O/Wt Last Vital Signs Temp 98.6 F 01/17/22 12:00 Pulse 90 01/17/22 12:00 Resp 16 01/17/22 12:00 BP 115/71 01/17/22 12:00 Pulse Ox 96 01/17/22 12:00 01/17/22 01/17/22 01/17/22 06:59 14:59 22:59 Intake Total 290 / 290 Output Total 500 / 1750 Balance -500 / -670 290 / 290 Weight last 48 hrs Weight 92.941 kg Physical Exam Narrative: General: No acute distress, AO x3, chronically ill-appearing, pallor present HEENT: PERRLA, pupils bilaterally equal and reactive Chest: Normal vesicular breath sounds, no added sounds, equal good air entry bilaterally CVS: S1-S2 regular, no murmurs, no tachycardia, no gallops, no rubs Abdomen: Soft, nontender, no organomegaly, bowel sounds present Neuro: No focal deficits, no facial deformity, AO x3, power 4/5 in all limbs Urinary Catheter Management: Robbins: Cath Placed During This Visit: yes Reason for Continuing Indwelling Catheter: Acute Urinary Retention or Obstruction Urinary Catheter Date of Insertion: 01/12/22 Urinary Catheter Time of Insertion: :28 Data : 01/17/22 04:25 01/17/22 04:25 Micro: Microbiology 01/12/22 09:35 Blood Culture - Final Blood NO GROWTH AFTER 5 DAYS 01/12/22 09:30 Blood Culture - Final Blood NO GROWTH AFTER 5 DAYS A&P Assessment and plan (1) Anemia: Status: Acute (2) Thrombocytopenia: Status: Acute (3) Leukopenia: Status: Acute (4) Diffuse large B-cell lymphoma of extranodal site: Status: Acute (5) Hyponatremia: Status: Acute (6) Hyperbilirubinemia: Status: Acute (7) Back pain: Status: Acute (8) Physical deconditioning: Status: Acute (9) Protein-energy malnutrition: Status: Acute Plan 81 year old male with past medical history of diffuse B-cell lymphoma with bony metastasis , currently on chemotherapy, chemotherapy received last Monday, chronic decubitus ulcer, pathological fracture of left clavicle, gout, initially he was sent to the ER for possible transfusion related reaction while he was getting second unit of of his blood transfusion. During hospitalization found to have extensive metastasis to spine. Anemia/thrombocytopenia/leukopenia: Not neutropenic. Secondary to large B-cell lymphoma. Post first cycle of chemotherapy. Received overall 3 units of blood transfusion. Hemoglobin/platelets stable for now. Fall precaution. Monitor hemoglobin, platelets. Care discussed in detail with patient's outpatient oncologist. Next cycle due in 2 weeks. As per my conversation with Dr. Dickey if patient does not improve within next 2 weeks, palliative care should be the way to go but for now we should see how his clinical picture is for next 2 weeks. Appreciate recommendations. Discontinue ceftriaxone as patient is not neutropenic. Continue home dexamethasone, valacyclovir, fluconazole. Hyponatremia: Secondary to overdiuresis. Resolved. Hypoxia: On admission concern for acute lung injury, TACO. Patient back to baseline oxygen supplementation. Monitor intake and output. Blood culture, urine cultures so far negative. Keep saturation over 90%. Severe physical deconditioning: Physical therapy evaluation appreciated. Patient would benefit from outpatient rehab. Family agreeable. electronics engineering manager alerted. Analgesia: Tylenol 650 mg every 6 hours as needed, morphine 1 mg every 4 hours as needed. Glycemic control: Not needed Nutrition: Soft mechanical, Glucerna with each meal. CODE STATUS: Full code. PUD prophylaxis: Protonix DVT prophylaxis: SCDs Discharge planning: Plan to discharge to SNF for further rehabilitation for next couple of weeks for patient to get stronger as patient is at high risk of fall, bleeding stroke. Continue with care at [facility] floor. Attestations Medical Necessity Statement*: Requires further hospitalization for management of anemia/thrombocytopenia secondary to diffuse B-cell lymphoma while safe discharge planning is sought secondary to severe physical deconditioning Time Spent in Patient Care: Greater than 35 minutes Coding Level of Care Code Acute Local Operator for g Fwd Diagnoses Anemia D64.9 Diffuse large B-cell lymphoma of extranodal site C83.39 Hyponatremia E87.1 Hyperbilirubinemia E80.6 Thrombocytopenia D69.6 Leukopenia D72.819 Back pain M54.9 Physical deconditioning R53.81 Protein-energy malnutrition E46
[2022-01-17] MEDS: tamsulosin 0.4 mg Capsule PO (16:44)
[2022-01-17] MEDS: HYDROcodone-acetaminophen 5-325 mg Tablet 1 TAB PO ×2 (16:45→23:06)
[2022-01-17] MEDS: folic acid 1 mg Tablet PO (16:45)
[2022-01-17] MEDS: pantoprazole DR 40 mg Tablet PO (20:14)
[2022-01-18] VITALS: BP 138/71; PULSE 69; RESP 18; TEMP 36.4; O2SAT 99
[2022-01-18] MEDS: cyclobenzaprine 10 mg Tablet 5 MG PO ×3 (00:49→20:34)
[2022-01-18 03:47] LABS: Basophils % 0.7 %; Hematocrit 21.2 % (42.0-52.0); Hemoglobin 7.6 g/dL (11.7-16.6); Lymphocytes # 0.1 10^3/uL (0.8-4.8); Lymphocytes % 1.4 %; Mean Corpuscular HGB Conc 35.8 g/dL (30.0-36.0); Mean Corpuscular Hemoglobin 31.3 pg (28.0-34.0); Mean Corpuscular Volume 87.2 fl (80-94); Mean Platelet Volume 11.7 fL (7.4-10.4); Monocytes # 0.2 10^3/uL (0.2-0.9); Monocytes % 4.3 %; Neutrophils % 79.6 %; Nucleated Red Blood Cells # 0.2 /100WBC; Nucleated Red Blood Cells % 4.3 %; Platelet Count 30 10^3/cmm (130-400); Red Blood Count 2.43 10^6/uL (4.1-5.3); Red Cell Distribution Width 14.4 % (12.1-15.1); White Blood Count 4.2 10^3/uL (4.0-10.0)
[2022-01-18 04:00] VITALS: BP 150/74; PULSE 66; RESP 18; TEMP 36.3; O2SAT 98
[2022-01-18 04:06] LABS: Slide Review Slide Review Perform
[2022-01-18 04:10] LABS: Alanine Aminotransferase 37 U/L (0-41); Albumin Level 2.8 g/dL (3.5-5.2); Alkaline Phosphatase 287 IU/L (40-130); Anion Gap 11.7 (5-19); Aspartate Amino Transferase 15 U/L (0-40); Blood Urea Nitrogen 21 mg/dL (8-23); Calcium 7.6 mg/dL (8.5-10.5); Carbon Dioxide 24 mmol/L (22-29); Chloride 102 mmol/L (98-107); Globulin 1.3 g/dL (1.3-4.6); Glucose 168 mg/dL (65-115); Osmolality Calculated 285 mOsm/kg (285-295); Potassium 3.7 mmol/L (3.5-5.1); Sodium 134 mmol/L (136-145); Total Bilirubin 0.4 mg/dL (0.15-1.2); Total Protein 4.1 g/dL (6.6-8.7)
[2022-01-18 08:00] VITALS: BP 134/68; PULSE 66; RESP 16; TEMP 36.5; O2SAT 96
--- NOTE | 2022-01-18 08:11 | PM.PN ---
Subjective Subjective: Patient resting comfortably. He has been working with physical therapy to mobilize him. Reports intermittent back pain. Vitals/I&O/Wt Last Vital Signs Temp 97.4 F L 01/18/22 04:00 Pulse 66 01/18/22 04:00 Resp 18 01/18/22 04:00 BP 150/74 01/18/22 04:00 Pulse Ox 98 01/18/22 04:00 01/17/22 01/18/22 01/18/22 22:59 06:59 14:59 Intake Total 240 / 770 Output Total 1425 / 1425 Balance 240 / 770 -1425 / -655 Physical Exam Narrative: He is alert orient x3 has good general appearance normal mood and affect. Moves both lower extremities fires in all motor groups with 4/5 muscle strength. Moderate tenderness with palpation through the thoracolumbar spine. Has good sensation light touch in all dermatomal layers of the thoracic spine as well as neurovascular intact in both lower extremities. Calves are supple no medial thigh tenderness. Dorsalis pedis and posterior tib pulses are weak but palpable. HENMT: COMMON NORMALS: normocephalic HEAD & SCALP: normocephalic Resp: COMMON NORMALS: normal respiratory effort Cardio: COMMON NORMALS: regular rate and regular rhythm RATE: regular rate RHYTHM: regular rhythm GI: COMMON NORMALS: Soft to palpation PALPATION: Yes Soft to palpation : COMMON NORMALS: Yes no CVA tenderness BLADDER/KIDNEY EXAM: Yes no CVA tenderness Back/Pelvis: COMMON NORMALS: no CVA tenderness Psych: COMMON NORMALS: mental status grossly normal and cooperative Urinary Catheter Management: Robbins: Cath Placed During This Visit: yes Reason for Continuing Indwelling Catheter: Acute Urinary Retention or Obstruction Urinary Catheter Date of Insertion: 01/12/22 Urinary Catheter Time of Insertion: 01:28 Data : 01/18/22 03:38 01/18/22 03:38 Micro: Microbiology 01/12/22 09:35 Blood Culture - Final Blood NO GROWTH AFTER 5 DAYS 01/12/22 09:30 Blood Culture - Final Blood NO GROWTH AFTER 5 DAYS Other data: MR/MR thoracic spin wo con* [id number] IMPRESSION: 1. Limited exam due to patient motion 2. 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 MR/MR lumbar spine wo con* [id number] IMPRESSION: 1. Extensive bone metastasis 2. No acute fracture 3. Degenerative changes and multilevel spinal stenosis as described. A&P Assessment and plan (1) Low back pain radiating to both legs: Reviewed the MRI scans of the thoracic and lumbar spine with him. At this point discussed with Dr. Cote there is nothing he has to offer surgically. We will continue with physical therapy. We will see him back in the office in 4 weeks time to reevaluate. Status: Acute (2) Spinal stenosis, lumbar region, without neurogenic claudication: Status: Acute Attestations Medical Necessity Statement*: defer to medical team Coding Level of Care Code Acute Sustainable Communities Designer for g Fwd Diagnoses Low back pain radiating to both legs M54.50; M79.604; M79.605 Spinal stenosis, lumbar region, without neurogenic claudication M48.061
[2022-01-18] MEDS: amlodipine 5 mg Tablet PO (09:33)
[2022-01-18] MEDS: allopurinol 300 mg Tablet PO (09:33)
[2022-01-18] MEDS: dexamethasone 4 mg Tablet 2 MG PO (09:33)
[2022-01-18] MEDS: fluconazole 100 mg Tablet PO (09:34)
[2022-01-18] MEDS: valACYclovir 1,000 mg Tablet 500 MG PO (09:36)
[2022-01-18 12:00] VITALS: BP 108/63; PULSE 88; RESP 12; TEMP 36.4; O2SAT 99
--- NOTE | 2022-01-18 13:46 | PC.NURSE ---
Wound Care Spoke to Mayo at wound care at [facility] to verify patient previous wound care orders, apply maylin to buttock and cover with optifoam, change qdaily. Mayo would like patient to follow up with wound care once discharged, at this time mayo stated she would discharge patient due to not having a visit in the last 30 days. Updated Case management Sher of request.
--- NOTE | 2022-01-18 14:22 | P.PN_ITS ---
Subjective Subjective: No complaints overnight. Sitting up in bed today. Denies any nausea vomiting, headache. at bedside. Working with physical therapy. Has remained hemodynamically stable and afebrile. On 3 L saturating 98%. Patient seen yesterday by outpatient oncologist Dr. Dickey in the evening. Vitals/I&O/Wt Last Vital Signs Temp 97.5 F L 01/18/22 12:00 Pulse 88 01/18/22 12:00 Resp 12 01/18/22 12:00 BP 108/63 01/18/22 12:00 Pulse Ox 99 01/18/22 12:00 01/17/22 01/18/22 01/18/22 22:59 06:59 14:59 Intake Total 240 / 770 120 / 120 Output Total 1425 / 1425 Balance 240 / 770 -1425 / -655 120 / 120 Physical Exam Narrative: General: No acute distress, AO x3, chronically ill-appearing, pallor present HEENT: PERRLA, pupils bilaterally equal and reactive Chest: Normal vesicular breath sounds, no added sounds, equal good air entry bilaterally CVS: S1-S2 regular, no murmurs, no tachycardia, no gallops, no rubs Abdomen: Soft, nontender, no organomegaly, bowel sounds present Neuro: No focal deficits, no facial deformity, AO x3, power 4/5 in all limbs Urinary Catheter Management: Robbins: Cath Placed During This Visit: yes Reason for Continuing Indwelling Catheter: Acute Urinary Retention or Obstruction Urinary Catheter Date of Insertion: 01/12/22 Urinary Catheter Time of Insertion: 01:28 Data : 01/18/22 03:38 01/18/22 03:38 Micro: Microbiology 01/12/22 09:35 Blood Culture - Final Blood NO GROWTH AFTER 5 DAYS 01/12/22 09:30 Blood Culture - Final Blood NO GROWTH AFTER 5 DAYS A&P Assessment and plan (1) Anemia: Status: Acute (2) Thrombocytopenia: Status: Acute (3) Leukopenia: Status: Acute (4) Diffuse large B-cell lymphoma of extranodal site: Status: Acute (5) Hyponatremia: Status: Acute (6) Hyperbilirubinemia: Status: Acute (7) Back pain: Status: Acute (8) Physical deconditioning: Status: Acute (9) Protein-energy malnutrition: Status: Acute Plan 81 year old male with past medical history of diffuse B-cell lymphoma with bony metastasis , currently on chemotherapy, chemotherapy received last Monday, chronic decubitus ulcer, pathological fracture of left clavicle, gout, initially he was sent to the ER for possible transfusion related reaction while he was getting second unit of of his blood transfusion. During hospitalization found to have extensive metastasis to spine. Anemia/thrombocytopenia/leukopenia: Not neutropenic. Secondary to large B-cell lymphoma. Post first cycle of chemotherapy. Received overall 3 units of blood transfusion. Hemoglobin/platelets stable for now. Fall precaution. Monitor hemoglobin, platelets. Care discussed in detail with patient's outpatient oncologist. Next cycle due in 2 weeks. As per my conversation with Dr. Dickey if patient does not improve within next 2 weeks, palliative care should be the way to go but for now we should see how his clinical picture is for next 2 weeks. Appreciate recommendations. Discontinue ceftriaxone as patient is not neutropenic. Continue home dexamethasone, valacyclovir, fluconazole. Hyponatremia: Secondary to overdiuresis. Resolved. Hypoxia: On admission concern for acute lung injury, TACO. Patient back to baseline oxygen supplementation. Monitor intake and output. Blood culture, urine cultures so far negative. Keep saturation over 90%. Severe physical deconditioning: Physical therapy evaluation appreciated. Patient would benefit from outpatient rehab. Family agreeable. credit portfolio manager alerted. Analgesia: Tylenol 650 mg every 6 hours as needed, morphine 1 mg every 4 hours as needed. Glycemic control: Not needed Nutrition: Soft mechanical, Glucerna with each meal. CODE STATUS: Full code. PUD prophylaxis: Protonix DVT prophylaxis: SCDs Discharge planning: Plan to discharge to SNF for further rehabilitation for next couple of weeks for patient to get stronger as patient is at high risk of fall, bleeding stroke. Continue with care at [facility] floor. Plan for day: Continue with physical therapy. Continue with oxygen supplementation. Pain management. Monitor CBC in AM. Stop antibiotics. Continue with home prophylaxis. Plan for discharge to SNF once patient is accepted. Patient as per case management has been declined by [facility]. Family wants to try [place]. As per conversation with oncology patient would not need any more chemotherapy for next 2 weeks. If patient improves and blood counts and and his physical deconditioning with physical therapy in 2 weeks plan will be to continue chemotherapy otherwise possible hospice. Both patient and are agreeable. Attestations Medical Necessity Statement*: Requires further hospitalization for management of anemia/thrombocytopenia in a patient with large B-cell lymphoma requiring multiple transfusion, severe physical deconditioning while safe discharge planni ng is sought as patient is at high risk of fall and bleeding Time Spent in Patient Care: 16 - 35 minutes Coding Level of Care Code Acute Asbestos Pipe Supervisor for Chg Fwd Diagnoses Anemia D64.9 Thrombocytopenia D69.6 Leukopenia D72.819 Diffuse large B-cell lymphoma of extranodal site C83.39 Hyponatremia E87.1 Hyperbilirubinemia E80.6 Back pain M54.9 Physical deconditioning R53.81 Protein-energy malnutrition E46
[2022-01-18] MEDS: HYDROcodone-acetaminophen 5-325 mg Tablet 1 TAB PO (15:34)
[2022-01-18 16:00] VITALS: BP 115/71; PULSE 83; RESP 16; TEMP 36.4; O2SAT 98
[2022-01-18] MEDS: tamsulosin 0.4 mg Capsule PO (18:07)
[2022-01-18] MEDS: folic acid 1 mg Tablet PO (18:07)
[2022-01-18 19:47] VITALS: BP 123/76; PULSE 92; RESP 16; TEMP 36.7; O2SAT 97
[2022-01-18] MEDS: pantoprazole DR 40 mg Tablet PO (20:34)
[2022-01-19] VITALS (9 sets, daily range): BP systolic 110–133; BP diastolic 69–81; PULSE 75–130; RESP 16–18; TEMP 36.6–37; O2SAT 94–99
[2022-01-19] MEDS: HYDROcodone-acetaminophen 5-325 mg Tablet 1 TAB PO ×2 (01:02→16:27)
[2022-01-19 08:35] LABS: Hematocrit 22.7 % (42.0-52.0); Hemoglobin 7.6 g/dL (11.7-16.6); Mean Corpuscular HGB Conc 33.5 g/dL (30.0-36.0); Mean Corpuscular Hemoglobin 31.1 pg (28.0-34.0); Mean Platelet Volume 11.3 fL (7.4-10.4); Platelet Count 42 10^3/cmm (130-400); Red Blood Count 2.44 10^6/uL (4.1-5.3); Red Cell Distribution Width 14.7 % (12.1-15.1); White Blood Count 4.7 10^3/uL (4.0-10.0)
--- NOTE | 2022-01-19 09:04 | PC.SOCIAL ---
IMM Updated Updated pt on IMM. No questions voiced. Provided pt a copy. Initialed, dated, & timed copy in chart.
[2022-01-19] MEDS: valACYclovir 1,000 mg Tablet 500 MG PO (09:23)
[2022-01-19] MEDS: fluconazole 100 mg Tablet PO (09:24)
[2022-01-19] MEDS: amlodipine 5 mg Tablet PO (09:25)
[2022-01-19] MEDS: dexamethasone 4 mg Tablet 2 MG PO (09:25)
[2022-01-19] MEDS: allopurinol 300 mg Tablet PO (09:25)
[2022-01-19 09:30] LABS: Slide Review Slide Review Perform
[2022-01-19 09:31] LABS: Absolute Neutrophil 4.2 10^3/cmm (1.4-6.5); Absolute Segmented Neutrophil 3.8 10/cmm (1.6-7.1); Band Neutrophils Absolute 0.4 10^3/cmm (0.0-1.2); Eosinophils 1 %; Lymphocytes 2 %; Monocytes Absolute 0.1 10^3/cmm (0.1-0.6); Platelet Estimate Decreased (Normal); Segmented Neutrophils 81 %; Total Cells Counted 100 (0-100)
--- NOTE | 2022-01-19 14:08 | PM.PN ---
Subjective Subjective: No acute events overnight. Patient sitting up in chair today working with physical therapy. No new complaints. Vitals/I&O/Wt Last Vital Signs Temp 98.3 F 01/19/22 12:00 Pulse 100 01/19/22 12:00 Resp 16 01/19/22 12:00 BP 110/74 01/19/22 12:00 Pulse Ox 97 01/19/22 12:00 O2 Del Method 01/19/22 12:00 O2 Flow Rate 3 01/18/22 20:00 01/18/22 01/19/22 01/19/22 22:59 06:59 14:59 Intake Total 240 / 360 360 / 360 Output Total 700 / 700 800 / 1500 Balance -460 / -340 -800 / -1140 360 / 360 Physical Exam Narrative: General: No acute distress, AO x3, chronically ill-appearing, pallor present HEENT: PERRLA, pupils bilaterally equal and reactive Chest: Normal vesicular breath sounds, no added sounds, equal good air entry bilaterally CVS: S1-S2 regular, no murmurs, no tachycardia, no gallops, no rubs Abdomen: Soft, nontender, no organomegaly, bowel sounds present Neuro: No focal deficits, no facial deformity, AO x3, power 4/5 in all limbs Urinary Catheter Management: Robbins: Cath Placed During This Visit: yes Reason for Continuing Indwelling Catheter: Acute Urinary Retention or Obstruction Urinary Catheter Date of Insertion: 01/12/22 Urinary Catheter Time of Insertion: 01:28 Data : 01/19/22 08:08 01/18/22 03:38 A&P Assessment and plan (1) Anemia: Status: Acute (2) Thrombocytopenia: Status: Acute (3) Leukopenia: Status: Acute (4) Diffuse large B-cell lymphoma of extranodal site: Status: Acute (5) Hyponatremia: Status: Acute (6) Hyperbilirubinemia: Status: Acute (7) Back pain: Status: Acute (8) Physical deconditioning: Status: Acute (9) Protein-energy malnutrition: Status: Acute Plan 81 year old male with past medical history of diffuse B-cell lymphoma with bony metastasis , currently on chemotherapy, chemotherapy received last Monday, chronic decubitus ulcer, pathological fracture of left clavicle, gout, initially he was sent to the ER for possible transfusion related reaction while he was getting second unit of of his blood transfusion. During hospitalization found to have extensive metastasis to spine. Anemia/thrombocytopenia/leukopenia: Not neutropenic. Secondary to large B-cell lymphoma. Post first cycle of chemotherapy. Received overall 3 units of blood transfusion. Hemoglobin/platelets stable for now. Fall precaution. Monitor hemoglobin, platelets. Care discussed in detail with patient's outpatient oncologist. Next cycle due in 2 weeks. As per my conversation with Dr. Dickey if patient does not improve within next 2 weeks, palliative care should be the way to go but for now we should see how his clinical picture is for next 2 weeks. Appreciate recommendations. Discontinue ceftriaxone as patient is not neutropenic. Continue home dexamethasone, valacyclovir, fluconazole. Hyponatremia: Secondary to overdiuresis. Resolved. Hypoxia: On admission concern for acute lung injury, TACO. Patient back to baseline oxygen supplementation. Monitor intake and output. Blood culture, urine cultures so far negative. Keep saturation over 90%. Severe physical deconditioning: Physical therapy evaluation appreciated. Patient would benefit from outpatient rehab. Family agreeable. home visit field care manager alerted. Analgesia: Tylenol 650 mg every 6 hours as needed, morphine 1 mg every 4 hours as needed. Glycemic control: Not needed Nutrition: Soft mechanical, Glucerna with each meal. CODE STATUS: Full code. PUD prophylaxis: Protonix DVT prophylaxis: SCDs Discharge planning: Plan to discharge to SNF for further rehabilitation for next couple of weeks for patient to get stronger as patient is at high risk of fall, bleeding stroke. [facility]. Plan for day: Awaiting safe discharge planning. Monitor CBC daily. Physical therapy. CODE STATUS discussion. Discussed in detail with patient and patient's at bedside given poor baseline health secondary to advanced large B-cell lymphoma, multiple blood transfusion, severe deconditioning if he would still want chest compressions or intubation and an adverse event of him having any difficulty in breathing or heart stopping. Both patient and patient's would like to talk amongst each other and revert back. Attestations Medical Necessity Statement*: Requires further hospitalization while safe discharge planning to SNF given severe physical deconditioning in a patient with large B-cell lymphoma Time Spent in Patient Care: 16 - 35 minutes Coding Level of Care Code Acute Personal Injury Attorney for g Fwd Diagnoses Anemia D64.9 Thrombocytopenia D69.6 Leukopenia D72.819 Diffuse large B-cell lymphoma of extranodal site C83.39 Hyponatremia E87.1 Hyperbilirubinemia E80.6 Back pain M54.9 Physical deconditioning R53.81 Protein-energy malnutrition E46
[2022-01-19] MEDS: tamsulosin 0.4 mg Capsule PO (17:16)
[2022-01-19] MEDS: folic acid 1 mg Tablet PO (17:16)
[2022-01-19] MEDS: pantoprazole DR 40 mg Tablet PO (20:33)
[2022-01-20] VITALS (8 sets, daily range): BP systolic 119–133; BP diastolic 69–73; PULSE 78–132; RESP 12–16; TEMP 36.7–37; O2SAT 94–96
--- NOTE | 2022-01-20 01:06 | PC.NURSE ---
right port patent and intact
[2022-01-20] MEDS: dexamethasone 4 mg Tablet 2 MG PO (06:02)
[2022-01-20] MEDS: valACYclovir 1,000 mg Tablet 500 MG PO (06:02)
[2022-01-20] MEDS: fluconazole 100 mg Tablet PO (06:02)
[2022-01-20] MEDS: allopurinol 300 mg Tablet PO (06:03)
[2022-01-20] MEDS: amlodipine 5 mg Tablet PO (06:03)
--- NOTE | 2022-01-20 10:14 | PC.NURSE ---
sit to stand used to go to the restroom
--- NOTE | 2022-01-20 13:49 | P.DS_ITS ---
Discharge Providers Date of Admission: 01/12/22 00:01 Date of Discharge: January 20, 2022 Attending Provider at Admission: Cristian Moran MD Attending Provider at Discharge: Toby Puentes MD Primary Care Provider: Robert Floyd MD Diagnoses at Discharge Discharge Diagnosis (1) Anemia: Status: Acute (2) Thrombocytopenia: Status: Acute (3) Leukopenia: Status: Acute (4) Diffuse large B-cell lymphoma of extranodal site: Status: Acute (5) Hyponatremia: Status: Acute (6) Hyperbilirubinemia: Status: Acute (7) Back pain: Status: Acute (8) Physical deconditioning: Status: Acute (9) Protein-energy malnutrition: Status: Acute Reason for Visit Reason for Visit: possiable blood reaction Hospital Course Hospital Course 81 year old male with past medical history of diffuse B-cell lymphoma with bony metastasis , currently on chemotherapy,? chemotherapy received last Monday, chronic decubitus ulcer, pathological fracture of left clavicle, gout, initially he was sent to the ER for possible Acute hemolytic transfusion reaction, as on the day of admission he had received 2 units PRBC as outpatient, for anemia. On interaction in the ER patient was predominately complaining of severe back pain. He denied any chest pain or difficulty in breathing. He underwent multiple CT imaging of his back during hospitalization which were consistent with metastasis. Orthopedic was consulted and they recommended him to have physical therapy with pain regimen. Patient required further 2 more units of blood transfusion during hospitalization. His hemoglobin and platelet count remained stable. He continued to work with physical therapy. Patient was also seen by his outpatient oncologist during hospitalization. Patient's next chemotherapy cycle is in 2 weeks. As per the oncology team if patient does not improve within next 2 weeks which means if his blood counts do not stabilize the next 2 weeks or his physical deconditioning does not improve after 2 weeks then the option would be palliative care otherwise to continue to the next cycle of chemotherapy. Patient and patient's family were agreeable to the plan of care. Given advanced age, severe physical deconditioning because of diffuse B-cell lymphoma safe discharge planning was sought in detail with patient's family and they wanted patient to be discharged to SNF as possible. Multiple SNF in the area had decline the patient. Further discharge planning of SNF outside the area versus home with home health were discussed in detail with patient and [facility] . He opted for discharge to home with home health. Physical Exam Narrative: General: No acute distress, AO x3, chronically ill-appearing, pallor present HEENT: PERRLA, pupils bilaterally equal and reactive Chest: Normal vesicular breath sounds, no added sounds, equal good air entry bilaterally CVS: S1-S2 regular, no murmurs, no tachycardia, no gallops, no rubs Abdomen: Soft, nontender, no organomegaly, bowel sounds present Neuro: No focal deficits, no facial deformity, AO x3, power 4/5 in all limbs Urinary Catheter Management: Robbins: Cath Placed During This Visit: yes Reason for Continuing Indwelling Catheter: Acute Urinary Retention or Obstruction Urinary Catheter Date of Insertion: 01/12/22 Urinary Catheter Time of Insertion: 01:28 Discharge Data Studies Completed and Pending Completed Studies During Hospitalization Category Date Time Status CT cervical spine wo con [CT cervical spin wo con* Cat Scan 01/12/22 11:15 Completed [id number]] Routine CT lumbar spine wo con* [id number] Routine Cat Scan 01/12/22 11:[address] thoracic spine wo con [CT thoracic spin wo con* Cat Scan 01/12/22 11:15 Completed 11589] Routine CTA PE [CT angio chest PE protcl [id number]] Stat Cat Scan 01/12/22 03:49 Completed MR lumbar spine wo con* [id number] Routine MRI 01/14/22 10:15 Completed MR thoracic spin wo con* [id number] Routine MRI 01/14/22 10:15 Completed Radiology Impressions Chest CTA 01/12/22 03:49 IMPRESSION: 1. No CTA evidence of pulmonary embolism, thoracic aortic aneurysm or thoracic aortic dissection. 2. Right internal jugular Port-A-Cath seen with tip in the deep right atrium. Recommend clinical assessment. 3. Mild bilateral lower lobe and inferior lingular atelectasis. Associated tiny bilateral pleural effusions. No CT evidence of interstitial lung disease. 4. Degenerative changes of the thoracic spine, as noted above. Unchanged nonspecific patchy sclerotic changes of the T11 vertebral body and visualized upper thoracic spine. Unchanged left posterior 11th rib fracture seen with associated lytic destructive changes. This may represent a pathologic fracture related to osseous metastatic disease. Bone scan may be performed for complete assessment. Cervical Spine CT 01/12/22 11:15 IMPRESSION: 1. Negative for fracture or dislocation. 2. Grade 1 anterolisthesis of C4 relative to C5 of 3.5 mm likely chronic and degenerative. 3. Multilevel degenerative disc space narrowing throughout the spine. Lumbar Spine CT 01/12/22 11:15 IMPRESSION: 1. 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 2. Patchy areas of mixed lytic and sclerotic bony lesions throughout the spine suggestive of metastatic disease. 3. Bilateral dependent atelectasis. 4. L1-L2 broad-based disc bulge with moderate spinal canal and bilateral narrowing. 5. L2-L3 broad-based disc bulge with mild spinal canal and moderate to severe bilateral foraminal narrowing. 6. L3-L4 broad-based disc bulge with mild spinal canal and moderate bilateral foraminal narrowing. 7. L4-L5 broad-based disc bulge with ligamentum flavum hypertrophy and productive degenerative changes resulting in moderate to severe spinal canal and moderate to severe bilateral foraminal narrowing. 8. L5/S1 productive degenerative changes resulting in severe bilateral foraminal narrowing. ADDENDUM: 01/12/22 3784 Please ignore under findings where it states no significant disc protrusion, spinal canal or neural foraminal narrowing at L4-L5. L4-L5 findings are described in the impression. Thoracic Spine CT 01/12/22 11:15 IMPRESSION: 1. Negative for fracture or dislocation. 2. Scattered areas of lytic and sclerotic suspected metastatic disease throughout the osseous structures. 3. Bilateral dependent atelectasis versus infiltrate. 4. Emphysematous changes. 5. Cardiomegaly. 6. Coronary artery atherosclerotic calcifications. Lumbar Spine MRI 01/14/22 10:15 IMPRESSION: 1. Extensive bone metastasis 2. No acute fracture 3. Degenerative changes and multilevel spinal stenosis as described. Thoracic Spine MRI 01/14/22 10:15 IMPRESSION: 1. Limited exam due to patient motion 2. 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 Laboratory Results WBC 4.7 10^3/uL (4.0-10.0) 01/19/22 08:08 Corrected WBC Cancelled 01/16/22 05:25 RBC 2.44 10^6/uL (4.1-5.3) L 01/19/22 08:08 Hgb 7.6 g/dL (11.7-16.6) L 01/19/22 08:08 Hct 22.7 % (42.0-52.0) L 01/19/22 08:08 MCV 93.0 fl (80-94) D 01/19/22 08:08 MCH 31.1 pg (28.0-34.0) 01/19/22 08:08 MCHC 33.5 g/dL (30.0-36.0) D 01/19/22 08:08 RDW 14.7 % (12.1-15.1) 01/19/22 08:08 Plt Count 42 10^3/cmm (130-400) L D 01/19/22 08:08 MPV 11.3 fL (7.4-10.4) H 01/19/22 08:08 Gran % Cancelled 01/16/22 05:25 Neut % (Auto) 79.6 % 01/18/22 03:38 Lymph % (Auto) Not Reportable 01/19/22 08:08 Hardin % (Auto) Not Reportable 01/19/22 08:08 Eos % (Auto) 0.0 % 01/18/22 03:38 Baso % (Auto) 0.7 % 01/18/22 03:38 Neut # (Auto) 3.30 10^3/uL (1.8-7.7) 01/18/22 03:38 Lymph # (Auto) Not Reportable 01/19/22 08:08 Hardin # (Auto) Not Reportable 01/19/22 08:08 Eos # (Auto) 0.0 10^3/uL (0.0-0.8) 01/18/22 03:38 Baso # (Auto) 0.0 10^3/uL (0.0-0.1) 01/18/22 03:38 Absolute Gran (auto) Cancelled 01/16/22 05:25 Nucleated RBC % (auto) 4.3 % 01/18/22 03:38 Total Counted 100 (0-100) 01/19/22 08:08 Atypical Lymphs % Not Reportable 01/19/22 08:08 Absolute Neutrophils 4.2 10^3/cmm (1.4-6.5) 01/19/22 08:08 Segmented Neutrophils 81 % 01/19/22 08:08 Abs Segm Neuts (Man) 3.8 10/cmm (1.6-7.1) 01/19/22 08:08 Band Neutrophils 9.0 % 01/19/22 08:08 Abs Band Neuts (Man) 0.4 10^3/cmm (0.0-1.2) 01/19/22 08:08 Absolute Lymphocytes 0.2 10^3/cmm (1.2-3.4) L 01/16/22 15:40 Lymphocytes (Manual) 2 % 01/19/22 08:08 Monocytes (Manual) 2.0 % 01/19/22 08:08 Absolute Monocytes 0.1 10^3/cmm (0.1-0.6) 01/19/22 08:08 Eosinophils (Manual) 1 % 01/19/22 08:08 Absolute Eosinophils 0.0 10^3/cmm (0.0-0.7) 01/19/22 08:08 Basophils (Manual) 1.0 % 01/19/22 08:08 Absolute Basophils 0.0 10^3/cmm (0.0-0.2) 01/19/22 08:08 Metamyelocytes 4.0 % 01/19/22 08:08 Myelocytes 2.0 % 01/11/22 16:02 Nucleated RBCs 2.0 /100WBC (0-1) H 01/16/22 15:40 Nucleated RBCs # 0.2 /100WBC 01/18/22 03:38 Smudge Cells Trace 01/16/22 15:40 Platelet Estimate Decreased (Normal) 01/19/22 08:08 Hypochromasia Trace 01/14/22 05:31 Poikilocytosis Trace 01/16/22 15:40 Basophilic Stippling Trace 01/14/22 05:31 Anisocytosis Trace 01/16/22 15:40 Ovalocytes Trace 01/16/22 15:40 Haptoglobin 92.0 mg/L (30-200) 01/12/22 03:50 PT 15.60 SECONDS (12.1-14.9) H 01/17/22 04:25 INR 1.21 (0.8-1.2) H 01/17/22 04:25 APTT 23.8 SECONDS (23.9-36.7) L 01/17/22 04:25 Fibrinogen 164 mg/dL (174-498) L 01/17/22 04:25 Fibrin Degrad Products Pos, 10-40 ug/mL (NEG) H 01/14/22 08:21 D-Dimer 2.56 ug/mIFEU (0-0.59) H 01/11/22 16:02 Specimen Type Arterial 01/12/22 18:18 Sample Site Radial, right 01/12/22 18:18 ABG pH 7.43 (7.35-7.45) 01/12/22 18:18 ABG pCO2 38.4 mmHg (35-45) 01/12/22 18:18 ABG pO2 75.1 mmHg (80.0-100.0) L 01/12/22 18:18 ABG HCO3 25.7 mmol/L (22-26) 01/12/22 18:18 ABG O2 Saturation 96.1 01/12/22 18:18 ABG Base Excess 1.4 mmol/L (-2.0-2.0) 01/12/22 18:18 Kieran Test Pos 01/12/22 18:18 A-a O2 Gradient 3.3 mmHg (5-10) L 01/12/22 18:18 Hematocrit 27.6 % (42-52) L 01/12/22 18:18 Hgb O2 Saturation 94.6 % (95-100) L 01/12/22 18:18 Carboxyhemoglobin 1.1 %THgb (0.4-20.1) 01/12/22 18:18 Methemoglobin 0.5 % (0.4-1.5) 01/12/22 18:18 Total Hemoglobin 9.0 g/dL (14-18) L 01/12/22 18:18 Sodium 127.0 mmol/L (131-143) L 01/12/22 18:18 Potassium 4.0 mmol/L (3.5-5.0) 01/12/22 18:18 Glucose 104.0 mg/dL (70-115) 01/12/22 18:18 Ionized Calcium 1.1 mmol/L (1.1-1.4) 01/12/22 18:18 O2 Delivery Device Oxy mask 01/12/22 18:18 O2 Liters/Min 15.0 % 01/12/22 18:18 Lagging Machine Operator ID Monro 01/12/22 18:18 Sodium 134 mmol/L (136-145) L 01/18/22 03:38 Potassium 3.7 mmol/L (3.5-5.1) 01/18/22 03:38 Chloride 102 mmol/L (98-107) 01/18/22 03:38 Carbon Dioxide 24 mmol/L (22-29) 01/18/22 03:38 Anion Gap 11.7 (5-19) 01/18/22 03:38 BUN 21 mg/dL (8-23) 01/18/22 03:38 Creatinine 0.7 mg/dL (0.7-1.2) 01/18/22 03:38 GFR Calculation Not Reportable 01/18/22 03:38 Glucose 168 mg/dL (65-115) H 01/18/22 03:38 Calculated Osmolality 285 mOsm/kg (285-295) 01/18/22 03:38 Lactate 1.5 mmol/L (0.5-2.2) 01/12/22 03:50 Uric Acid 3.4 mg/dL (3.4-7.0) 01/12/22 03:50 Calcium 7.6 mg/dL (8.5-10.5) L 01/18/22 03:38 Phosphorus 2.8 mg/dL (2.5-4.5) 01/12/22 03:50 Total Bilirubin 0.4 mg/dL (0.15-1.2) 01/18/22 03:38 Direct Bilirubin 0.50 mg/dL (0.00-0.30) H 01/12/22 03:50 AST 15 U/L (0-40) 01/18/22 03:38 ALT 37 U/L (0-41) 01/18/22 03:38 Alkaline Phosphatase 287 IU/L (40-130) H 01/18/22 03:38 Lactate Dehydrogenase 615 U/L (135-225) H 01/11/22 16:02 Troponin T Baseline 29 ng/L (0-15) H 01/12/22 03:50 Troponin T 120 Minute 29.83 ng/L (0-15) H 01/12/22 06:10 Delta Troponin T 0.83 ABS# (0-10) 01/12/22 06:10 Troponin T Hi Sens 6Hr 28.62 ng/L (0-15) H 01/12/22 09:35 Troponin T Hi Sens 6Hr Delta -0.38 ng/L (0-12) L 01/12/22 09:35 Total Protein 4.1 g/dL (6.6-8.7) L 01/18/22 03:38 Albumin 2.8 g/dL (3.5-5.2) L 01/18/22 03:38 Globulin 1.3 g/dL (1.3-4.6) 01/18/22 03:38 Urine Color Yellow (Yellow) 01/12/22 04:14 Urine Appearance Clear (CLEAR) 01/12/22 04:14 Urine pH 5 (5-7) 01/12/22 04:14 Ur Specific [place] 1.020 (1.005-1.030) 01/12/22 04:14 Urine Protein Neg (Negative) 01/12/22 04:14 Urine Glucose (UA) Norm (Normal) 01/12/22 04:14 Urine Ketones Negative (Negative) 01/12/22 04:14 Urine Blood 3+ (Negative) H 01/12/22 04:14 Urine Nitrate Negative (Negative) 01/12/22 04:14 Urine Bilirubin Neg (Negative) 01/12/22 04:14 Urine Urobilinogen Norm mg/dL (Negative) 01/12/22 04:14 Ur Leukocyte Esterase Negative (Negative) 01/12/22 04:14 Urine RBC 15-25 /hpf (0-2) H 01/12/22 04:14 Urine WBC 0-4 /hpf (0-5) H 01/12/22 04:14 Ur Squamous Epith Cells 0-4 /hpf (0-5) H 01/12/22 04:14 Amorphous Sediment Not Reportable 01/12/22 04:14 Urine Bacteria Trace /hpf (NONE) 01/12/22 04:14 Coronavirus 229E (PCR) Not detected (NOT DETECT) 01/12/22 03:48 SARS-CoV-2 (PCR) Not detected (NOT DETECT) 01/12/22 03:48 Blood Type A Positive 01/16/22 07:07 Rho(D) Type Positive 01/16/22 07:07 Antibody Screen Negative 01/16/22 07:07 Crossmatch See Detail 01/16/22 07:07 Reaction Clerical Check suma Camejo 01/11/22 17:45 Pre-Trans Blood Type Ap 01/11/22 17:45 Pre-Trans Urine RBC Not noted 01/11/22 17:45 Post-Trans Blood Type A Positive 01/11/22 17:45 Post-Tx Visible Hemolys No hemolysis 01/11/22 17:45 Post-Trans GANESH Negative 01/11/22 17:45 Vitals Last Vital Signs Temp 98.3 F 01/20/22 12:00 Pulse 91 01/20/22 12:00 Resp 16 01/20/22 12:00 BP 119/72 01/20/22 12:00 Pulse Ox 95 01/20/22 12:00 O2 Del Method 01/20/22 12:00 O2 Flow Rate 3 01/18/22 20:00 Discharge Plan Discharge Patient Disposition: Home Health Service Condition: Stable Prescriptions: Continued tamsulosin 0.4 mg capsule 0.4 mg PO QPM (DME) Sole Supports Qty: 1 0RF Rx Instructions: As directed (DME) carbon fiber See Rx Instructions .ROUTE .MEDSUPPLY Qty: 1 0RF Rx Instructions: As directed (DME) Gel toe sleeve, right hallux See Rx Instructions .Route .MEDSUPPLY Qty: 1 0RF Rx Instructions: As directed prochlorperazine maleate [Compazine] 10 mg tablet 10 mg PO Q4H PRN (Reason: Mild Nausea) Qty: 30 3RF folic acid 1 mg tablet 1 mg PO QPM Qty: 90 3RF prednisone 50 mg tablet See Rx Instructions .ROUTE .COMPLEX 21 Days Qty: 10 0RF Rx Instructions: Take 100 mg (2 tablets) orally on days 1 through 5 of treatment. olanzapine 5 mg Tablet 5 mg PO QPM Qty: 30 3RF Rx Instructions: Take for 5 days post chemo. lorazepam 1 mg Tablet 0.5 - 1 mg PO Q6H PRN (Reason: Severe Nausea) Qty: 30 3RF acetaminophen 500 mg Tablet 1,000 mg PO Q4H PRN (Reason: Pain) Advil PM 200-38 mg Tablet 1 tab PO BEDTIME lactulose 10 gram/15 mL solution 15 ml PO DAILY PRN (Reason: Constipation) Qty: 300 0RF pantoprazole [Protonix] 40 mg tablet,delayed release (DR/EC) 40 mg PO BEDTIME Qty: 14 0RF Senokot-S 8.6-50 mg Tablet 2 tab PO BID Diflucan 100 mg tablet 100 mg PO QAM Rx Instructions: For fungal infection prevention. amlodipine 5 mg tablet 5 mg PO QAM valacyclovir 500 mg tablet 500 mg PO QAM Rx Instructions: Continue 3 months post treatment for prevention of viral infection. Bactrim DS 800-160 mg tablet 1 tab PO .ON MON,MON,MON Rx Instructions: For infection prevention take on Monday, Monday and Monday while on chemo and for 3 months after completion dexamethasone 4 mg tablet 2 mg PO QAM allopurinol 300 mg tablet 300 mg PO QAM Discharge Orders: Discharge Order (Routine); Ordered 01/20/22 Ordered By: Toby Puentes Referrals: Robert Floyd MD [Primary Care Provider] - 4-7 days Discharge Diet: Advance as tolerated and Regular Discharge Activity: Resume usual activity and Increase activity as tolerated Patient Instructions: Opioid Safety Activity Restrictions/Additional Instructions: Please follow-up with your primary care provider within next 1 week. Please follow-up with your oncologist within next 2 weeks. Please repeat CBC with your primary care provider in 1 week. Discharge Attestations Time Spent in Discharge Care*: greater than 30 min Specific Discharge Activities: educating patient, educating and/or supporting family/caregiver, discussing with pcp/other providers, discussing with director of casework/social workers/dc planners, documenting/other paperwork and evaluating patient/reviewing data Status at Discharge: Cognitive status at discharge: cognitively intact , Behavioral status at discharge: cooperative , Functional status at discharge: other assisted ambulation , Overall status at discharge: patient is not back to baseline Quality Metrics Clinical Quality Measures [ No reported AMI, CVA or VTE this stay] Coding Level of Care Code Acute [facility] DC note Diagnoses Anemia D64.9 Thrombocytopenia D69.6 Leukopenia D72.819 Diffuse large B-cell lymphoma of extranodal site C83.39 Hyponatremia E87.1 Hyperbilirubinemia E80.6 Back pain M54.9 Physical deconditioning R53.81 Protein-energy malnutrition E46
--- NOTE | 2022-01-20 14:59 | PC.NURSE ---
deaccessed. dressing applied for d/c. education provided to remove at home
== END 2022-01-20 15:10 | disposition home health service (06) | DRG 948 ==
LOC: ER 16:44 → ER IP 23:17 → MEDSURG 01-12 17:26
PROVIDERS: Internal Medicine; Admitting Provider Internal Medicine; Emergency Provider Family Medicine; PCP Family Medicine; Visit Provider Student in an Organized Health Care Education/Training Program
DX: G89.3 Neoplasm related pain (acute) (chronic) (principal); C83.39 Diffuse large B-cell lymphoma, extranodal and solid organ sites; E46 Unspecified protein-calorie malnutrition; E87.1 Hypo-osmolality and hyponatremia; M84.512A Pathological fracture in neoplastic disease, left shoulder, initial encounter for fracture; I95.2 Hypotension due to drugs; T50.1X5A Adverse effect of loop [high-ceiling] diuretics, initial encounter; D63.0 Anemia in neoplastic disease; D69.59 Other secondary thrombocytopenia; D72.818 Other decreased white blood cell count; M10.9 Gout, unspecified; N40.0 Benign prostatic hyperplasia without lower urinary tract symptoms; E83.52 Hypercalcemia; E80.6 Other disorders of bilirubin metabolism; R09.02 Hypoxemia; R53.81 Other malaise; L89.319 Pressure ulcer of right buttock, unspecified stage; M48.061 Spinal stenosis, lumbar region without neurogenic claudication; M79.604 Pain in right leg; M79.605 Pain in left leg; G62.9 Polyneuropathy, unspecified; Z68.27 Body mass index [BMI] 27.0-27.9, adult; Z87.891 Personal history of nicotine dependence; Z79.899 Other long term (current) drug therapy; Z85.828 Personal history of other malignant neoplasm of skin; Z91.81 History of falling
CPT/HCPCS: 36415; 36430; 36591; 36600; 51702; 71275; 72125; 72128; 72131; 72146; 72148; 80051; 80053; 80503; 81001; 82248; 82330; 82805; 83010; 83540; 83550; 83605; 83615; 84100; 84484; 84550; 85007; 85025; 85027; 85362; 85378; 85384; 85610; 85730; 86850; 86900; 86920; 87040; 87086; 87635; 93005; 94760; 94762; 96365; 96375; 96376; 97110; 97161; 97530; 99214; 99291; J0696; J1100; J1170; J1200; J1940; J2270; J2405; J2543; J3480; J7030; J7040; J8540; P9016; P9040; P9047; Q9967

== ENCOUNTER 2022-01-17 08:00 | Oncology outpatient (recurring) (ONCR) | payer OTHER, MEDICARE, SELFPAY ==
[2022-01-10 08:47] LABS: Basophils % 0.7 %; Eosinophils # 0.1 10^3/uL (0.0-0.8); Eosinophils % 1.8 %; Hematocrit 22.2 % (42.0-52.0); Hemoglobin 7.3 g/dL (11.7-16.6); Lymphocytes # 0.1 10^3/uL (0.8-4.8); Lymphocytes % 3.9 %; Mean Corpuscular HGB Conc 32.9 g/dL (30.0-36.0); Mean Corpuscular Hemoglobin 31.9 pg (28.0-34.0); Mean Corpuscular Volume 96.9 fl (80-94); Mean Platelet Volume 11.7 fL (7.4-10.4); Monocytes # 0.2 10^3/uL (0.2-0.9); Monocytes % 7.9 %; Neutrophils # 2.06 10^3/uL (1.8-7.7); Nucleated Red Blood Cells % 0 %; Platelet Count 76 10^3/cmm (130-400); Red Blood Count 2.29 10^6/uL (4.1-5.3); Red Cell Distribution Width 14.9 % (12.1-15.1); White Blood Count 2.8 10^3/uL (4.0-10.0)
[2022-01-10 09:27] LABS: Neutrophils % 85.7 %; Slide Review Slide Review Perform
[2022-01-10 10:34] LABS: Iron 82 ug/dL (59-158); Percent Saturation 46.5 % (20-50); Total Iron Binding Capacity 176 mcg/dl; Unsaturated Iron Binding 94 ug/dL (112-347)
[2022-01-11] VITALS (7 sets, daily range): BP systolic 108–125; BP diastolic 63–69; PULSE 80–94; RESP 18; TEMP 36.4–36.9; O2SAT 97–99
[2022-01-11] MEDS: diphenhydrAMINE 25 mg Capsule PO (08:38)
[2022-01-11] MEDS: acetaminophen 325 mg Tablet 650 MG PO (08:38)
[2022-01-11] MEDS: sodium chloride 0.9% 100 mL Bag IV (08:43)
[2022-01-11] MEDS: FUROsemide 10 mg/mL SDV 2mL 20 MG IVP (11:26)
--- NOTE | 2022-01-11 15:16 | PC.NURSE ---
phone call from the stating he was having some back pain that is getting harder even after taking tylenol. Rosa MEJÍA stated that he needed to make a visit to hospital er for evaulation,mm
== END 2022-01-23 23:59 | disposition home or self-care (01) ==
PROVIDERS: PCP Family Medicine; Visit Provider Internal Medicine Medical Oncology
DX: Z53.9 Procedure and treatment not carried out, unspecified reason (principal)
CPT/HCPCS: 36430; 36591; 83540; 83550; 85025; 86850; 86900; 86920; 96375; 99214; J1940; P9040

== ENCOUNTER 2022-01-20 22:10 | Observation (INO) | payer OTHER, MEDICARE, SELFPAY ==
--- NOTE | 2022-01-20 22:15 | XRR_ITS ---
PROCEDURE INFORMATION: Exam: XR Chest Exam date and time: 01/20/2022 10:24 PM Age: 81 years old Clinical indication: Shortness of breath; Additional info: SOB TECHNIQUE: Imaging protocol: Radiologic exam of the chest. Views: 1 view. COMPARISON: [place] [id number] 12/09/2021 10:08 PM FINDINGS: Tubes, catheters and devices: Interval placement of a right Mediport catheter. Lungs: Unremarkable. No consolidation. Pleural spaces: Unremarkable. No pleural effusion. No pneumothorax. Heart/Mediastinum: Unremarkable. No cardiomegaly. Vasculature: Calcification of the thoracic aorta and/or great vessels consistent with atherosclerotic vessel disease. Bones/joints: Unremarkable. Other findings: Stable postoperative changes over the right shoulder. XR/XR chest 1V portable [id number] IMPRESSION: 1. Interval placement of a right Mediport catheter. 2. No acute findings.
--- NOTE | 2022-01-20 22:16 | ECG_ITS ---
[facility] Test Date: 2022-01-20 Pat Name: Kendall Camejo Department: Room: Gender: Male Manager Law: : 1940 Requested By: Duong Elmore Order Number: [id number] Young MD: Meme Gardner M.D. Measurements Intervals [place] Rate: 94 P: 21 OR: 196 QRS: -29 QRSD: 97 T: 13 QT: 348 QTc: 435 Interpretive Statements SINUS RHYTHM MINIMAL VOLTAGE CRITERIA FOR LVH, CONSIDER NORMAL VARIANT [MEETS CRITERIA IN ONE OF: R(aVL), S(V1), R(V5), R(V5/V6)+S(V1)] POSSIBLE ANTERIOR MYOCARDIAL INFARCTION , OF INDETERMINATE AGE [30 ms Q WAVE IN V3/V4, OR R < 0.2 mV IN V4] Compared to ECG 01/12/2022 09:46:31 Myocardial infarct finding now present Sinus tachycardia no longer present Electronically Signed On 01-21-2022 10:33:36 CDT by Meme Gardner M.D. [id number]
[2022-01-20 22:17] VITALS: BP 104/75; PULSE 100; RESP 16; TEMP 36.9; O2SAT 97; BMI 27.8
--- NOTE | 2022-01-20 22:56 | W.ED.WEAKNES ---
HPI - Weakness General: Chief complaint: Weakness Stated complaint: general weakness Time Seen by Provider: 01/20/22 22:14 Source: patient and EMS Mode of arrival: EMS Limitations: no limitations History of Present Illness: 81-year-old male who has a history of cancer who was recently admitted here for a week states he had left this morning states since being home he has been gradually getting weaker and very fatigued he states that he started having dark stools at home as well. He denies any history of GI bleeds. Denies any fever denies any vomiting denies any increase in pain from his chronic pain. 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 Otoole Protein-energy malnutrition Surgical History History of cataract surgery Bilateral cataract excisions Hx of repair of rotator cuff S/P arthroscopic surgery of left knee S/P lymph node biopsy (11/17/21) Core needle biopsy of left supraclavicular lymph node Status post surgical removal of malignant neoplasm of skin Family History Father Cancer Brother Diabetes Denies family history of CAD (coronary artery disease) Clotting disorder Dementia Hyperlipidemia Psychiatric illness Chronic kidney disease (CKD) Suicide Anesthesia complication Bleeding disorder Family history of premature coronary artery disease Lung disease Hypertension Stroke Social History Smoking and tobacco status: former smoker Quit status (tobacco): has quit using tobacco Second hand smoke exposure: Yes Smoking risk assessment/counseling performed?: Yes Alcohol intake: never Desire information about alcohol rehabilitation?: No Counseling given: No Desire information about substance/drug rehabilitation?: No Counseling given: No Adopted: No Caregiver/support person: No Lives independently: Yes Household members: spouse Housing: House Marital status: Current occupational status: retired Current occupational exposures/hazards: No History of recent travel: No Current gender identity: Male Physical Exam Const: COMMON NORMALS: no acute distress, patient oriented x3 and healthy appearing HENMT: COMMON NORMALS: normocephalic and atraumatic HEAD & SCALP: normocephalic and atraumatic Eye: COMMON NORMALS: Equal, round and reactive pupils present and EOMs intact bilaterally PUPIL: Yes Equal, round and reactive pupils present Neck/C-Spine: COMMON NORMALS: full ROM and supple Chest: COMMONS NORMALS: normal inspection of the chest and normal palpation of entire chest wall Resp: COMMON NORMALS: normal respiratory effort, No retractions, No use of accessory muscles and clear to auscultation bilaterally AUSCULTATION: clear to auscultation bilaterally Cardio: COMMON NORMALS: regular rate, regular rhythm and No murmurs present (Cardio) RATE: regular rate RHYTHM: regular rhythm GI: COMMON NORMALS: Normal to inspection, nondistended, normoactive bowel sounds present, Soft to palpation, non-tender and no masses PALPATION: Yes Soft to palpation : OTHER: hemoccult positive Extremity: COMMON NORMALS: normal to inspection and full ROM Neuro: COMMON NORMALS: patient oriented x3, moves all extremities and no focal motor deficits Psych: COMMON NORMALS: mental status grossly normal, Normal thought process present and cooperative THOUGHT PROCESS: Normal thought process present Skin: COMMON NORMALS: no rashes or lesions noted and no wounds GENERAL SKIN EXAM: no rashes or lesions noted Course Vital Signs: Vital signs: Vital Signs Temperature 98.4 F 01/20/22 22:17 Pulse Rate 88 01/20/22 23:20 Respiratory Rate 17 01/20/22 23:20 Blood Pressure 104/75 01/20/22 23:20 Pulse Oximetry 97 01/20/22 23:20 Oxygen Delivery Me thod 01/20/22 23:20 MDM - Weakness Medical Decision Making Patient presents with generalized weakness he does have Hemoccult positive stool and had dark stool at home. Rectal exam did show darker stool but is not tarry in nature. His vital signs here are normal his hemoglobin is at his baseline spoke to hospitalist will admit for his GI bleed. Lab Data : 01/20/22 22:55 01/20/22 22:55 Radiology Impressions Chest X-Ray 01/20/22 22:15 IMPRESSION: 1. Interval placement of a right Mediport catheter. 2. No acute findings. Laboratory Results WBC 8.6 10^3/uL (4.0-10.0) 01/20/22 22:55 RBC 2.76 10^6/uL (4.1-5.3) L 01/20/22 22:55 Hgb 8.7 g/dL (11.7-16.6) L 01/20/22 22:55 Hct 25.5 % (42.0-52.0) L 01/20/22 22:55 MCV 92.4 fl (80-94) 01/20/22 22:55 MCH 31.5 pg (28.0-34.0) 01/20/22 22:55 MCHC 34.1 g/dL (30.0-36.0) 01/20/22 22:55 RDW 14.9 % (12.1-15.1) 01/20/22 22:55 Plt Count 69 10^3/cmm (130-400) L 01/20/22 22:55 MPV 11.2 fL (7.4-10.4) H 01/20/22 22:55 Lymph % (Auto) Not Reportable 01/20/22 22:55 [place] % (Auto) Not Reportable 01/20/22 22:55 Lymph # (Auto) Not Reportable 01/20/22 22:55 [place] # (Auto) Not Reportable 01/20/22 22:55 Total Counted 100 (0-100) 01/20/22 22:55 Atypical Lymphs % 2.0 % (0-5) 01/20/22 22:55 Absolute Neutrophils 7.4 10^3/cmm (1.4-6.5) H 01/20/22 22:55 Segmented Neutrophils 70 % 01/20/22 22:55 Abs Segm Neuts (Man) 6.0 10/cmm (1.6-7.1) 01/20/22 22:55 Band Neutrophils 16.0 % 01/20/22 22:55 Abs Band Neuts (Man) 1.4 10^3/cmm (0.0-1.2) H 01/20/22 22:55 Absolute Lymphocytes 0.5 10^3/cmm (1.2-3.4) L 01/20/22 22:55 Lymphocytes (Manual) 4 % 01/20/22 22:55 Monocytes (Manual) 2.0 % 01/20/22 22:55 Absolute Monocytes 0.2 10^3/cmm (0.1-0.6) 01/20/22 22:55 Eosinophils (Manual) 0 % 01/20/22 22: Absolute Eosinophils 0.0 10^3/cmm (0.0-0.7) 01/20/22 22:55 Basophils (Manual) 0.0 % 01/20/22 22:55 Absolute Basophils 0.0 10^3/cmm (0.0-0.2) 01/20/22 22:55 Metamyelocytes 5.0 % 01/20/22 22:55 Myelocytes 1.0 % 01/20/22 22:55 Toxic Granulation 2+ H 01/20/22 22:55 Platelet Estimate Decreased (Normal) 01/20/22 22:55 PT 14.90 SECONDS (12.1-14.9) 01/20/22 22:55 INR 1.14 (0.8-1.2) 01/20/22 22:55 Sodium 134 mmol/L (136-145) L 01/20/22 22:55 Potassium 3.6 mmol/L (3.5-5.1) 01/20/22 22:55 Chloride 99 mmol/L (98-107) 01/20/22 22:55 Carbon Dioxide 24 mmol/L (22-29) 01/20/22 22:55 Anion Gap 14.6 (5-19) 01/20/22 22:55 BUN 21 mg/dL (8-23) 01/20/22 22:55 Creatinine 0.8 mg/dL (0.7-1.2) 01/20/22 22:55 GFR Calculation Not Reportable 01/20/22 22:55 Glucose 147 mg/dL (65-115) H 01/20/22 22:55 Calculated Osmolality 284 mOsm/kg (285-295) L 01/20/22 22:55 Calcium 7.9 mg/dL (8.5-10.5) L 01/20/22 22:55 Total Bilirubin 0.5 mg/dL (0.15-1.2) 01/20/22 22:55 AST 14 U/L (0-40) 01/20/22 22:55 ALT 30 U/L (0-41) 01/20/22 22:55 Alkaline Phosphatase 236 IU/L (40-130) H 01/20/22 22:55 Troponin T Baseline 37 ng/L (0-15) H 01/20/22 22:55 Total Protein 4.4 g/dL (6.6-8.7) L 01/20/22 22:55 Albumin 3.3 g/dL (3.5-5.2) L 01/20/22 22:55 Globulin 1.1 g/dL (1.3-4.6) L 01/20/22 22:55 Urine Color Yellow (Yellow) 01/20/22 23:15 Urine Appearance Clear (CLEAR) 01/20/22 23:15 Urine pH 5 (5-7) 01/20/22 23:15 Ur Specific [place] 1.020 (1.005-1.030) 01/20/22 23:15 Urine Protein 1+ (Negative) H 01/20/22 23:15 Urine Glucose (UA) Norm (Normal) 01/20/22 23:15 Urine Ketones 1+ (Negative) H 01/20/22 23:15 Urine Blood 3+ (Negative) H 01/20/22 23:15 Urine Nitrate Negative (Negative) 01/20/22 23:15 Urine Bilirubin Neg (Negative) 01/20/22 23:15 Urine Urobilinogen 1 mg/dL (Negative) H 01/20/22 23:15 Ur Leukocyte Esterase Negative (Negative) 01/20/22 23:15 Urine RBC 15-25 /hpf (0-2) H 01/20/22 23:15 Urine WBC 0-4 /hpf (0-5) H 01/20/22 23:15 Ur Squamous Epith Cells 0-4 /hpf (0-5) H 01/20/22 23:15 Calcium Oxalate Crystal 0-4 /hpf H 01/20/22 23:15 Amorphous Sediment Not Reportable 01/20/22 23:15 Urine Bacteria 1+ /hpf (NONE) H 01/20/22 23:15 Urine Mucus 3+ /hpf 01/20/22 23:15 EKG Data EKG 1: I personally reviewed and interpreted this EKG as follows: EKG interpretation date: 01/20/22 EKG interpretation time: 22:29 Interpretation: nsr hr [address] or t wave abnormalities qrs 97 qtc 399 Discharge Plan Discharge Patient Disposition: Admitted As Inpatient Clinical Impression: Diffuse large B-cell lymphoma of extranodal site, Bony metastasis, GI bleed, Weakness Condition: Stable Prescriptions: No Action tamsulosin 0.4 mg capsule 0.4 mg PO QPM (DME) Sole Supports Qty: 1 0RF Rx Instructions: As directed (DME) carbon fiber See Rx Instructions .ROUTE .MEDSUPPLY Qty: 1 0RF Rx Instructions: As directed (DME) Gel toe sleeve, right hallux See Rx Instructions .Route .MEDSUPPLY Qty: 1 0RF Rx Instructions: As directed prochlorperazine maleate [Compazine] 10 mg tablet 10 mg PO Q4H PRN (Reason: Mild Nausea) Qty: 30 3RF folic acid 1 mg tablet 1 mg PO QPM Qty: 90 3RF prednisone 50 mg tablet See Rx Instructions .ROUTE .COMPLEX 21 Days Qty: 10 0RF Rx Instructions: Take 100 mg (2 tablets) orally on days 1 through 5 of treatment. olanzapine 5 mg Tablet 5 mg PO QPM Qty: 30 3RF Rx Instructions: Take for 5 days post chemo. lorazepam 1 mg Tablet 0.5 - 1 mg PO Q6H PRN (Reason: Severe Nausea) Qty: 30 3RF acetaminophen 500 mg Tablet 1,000 mg PO Q4H PRN (Reason: Pain) Advil PM 200-38 mg Tablet 1 tab PO BEDTIME lactulose 10 gram/15 mL solution 15 ml PO DAILY PRN (Reason: Constipation) Qty: 300 0RF pantoprazole [Protonix] 40 mg tablet,delayed release (DR/EC) 40 mg PO BEDTIME Qty: 14 0RF Senokot-S 8.6-50 mg Tablet 2 tab PO BID Diflucan 100 mg tablet 100 mg PO QAM Rx Instructions: For fungal infection prevention. amlodipine 5 mg tablet 5 mg PO QAM valacyclovir 500 mg tablet 500 mg PO QAM Rx Instructions: Continue 3 months post treatment for prevention of viral infection. Bactrim DS 800-160 mg tablet 1 tab PO .ON MON,MON,MON Rx Instructions: For infection prevention take on Monday, Monday and Monday while on chemo and for 3 months after completion dexamethasone 4 mg tablet 2 mg PO QAM allopurinol 300 mg tablet 300 mg PO QAM Referrals: Robert Floyd MD [Primary Care Provider] - Coding Level of Care Code ED Refueling [place] for Chg Fwd Exam Comprehensive
[2022-01-20 23:03] LABS: Hematocrit 25.5 % (42.0-52.0); Hemoglobin 8.7 g/dL (11.7-16.6); Mean Corpuscular HGB Conc 34.1 g/dL (30.0-36.0); Mean Corpuscular Hemoglobin 31.5 pg (28.0-34.0); Mean Corpuscular Volume 92.4 fl (80-94); Mean Platelet Volume 11.2 fL (7.4-10.4); Platelet Count 69 10^3/cmm (130-400); Red Blood Count 2.76 10^6/uL (4.1-5.3); Red Cell Distribution Width 14.9 % (12.1-15.1); White Blood Count 8.6 10^3/uL (4.0-10.0)
[2022-01-20 23:16] LABS: INR 1.14 (0.8-1.2)
[2022-01-20 23:20] VITALS: BP 104/75; PULSE 88; RESP 17; O2SAT 97
[2022-01-20 23:22] LABS: Alanine Aminotransferase 30 U/L (0-41); Albumin Level 3.3 g/dL (3.5-5.2); Alkaline Phosphatase 236 IU/L (40-130); Anion Gap 14.6 (5-19); Aspartate Amino Transferase 14 U/L (0-40); Blood Urea Nitrogen 21 mg/dL (8-23); Calcium 7.9 mg/dL (8.5-10.5); Carbon Dioxide 24 mmol/L (22-29); Chloride 99 mmol/L (98-107); Globulin 1.1 g/dL (1.3-4.6); Glucose 147 mg/dL (65-115); Osmolality Calculated 284 mOsm/kg (285-295); Potassium 3.6 mmol/L (3.5-5.1); Sodium 134 mmol/L (136-145); Total Bilirubin 0.5 mg/dL (0.15-1.2); Total Protein 4.4 g/dL (6.6-8.7)
[2022-01-20] MEDS: sodium chloride 0.9% 1,000 ML 999 ML IV (23:22)
[2022-01-20] MEDS: pantoprazole 40 mg SDV 80 MG IVP (23:22)
[2022-01-20 23:25] LABS: Troponin(5th) Baseline 37 ng/L (0-15)
[2022-01-20 23:33] LABS: Add Urine Culture? Yes; Add Urine Microscopic? YES; Bacteria Urine 1+ /hpf; Bilirubin Urine Neg (Negative); Blood Urine 3+ (Negative); Calcium Oxalate Crystals Urine 0-4 /hpf; Glucose Urine UA Norm (Normal); Ketones Urine 1+ (Negative); Leukocyte Esterase Urine Negative (Negative); Mucus Urine 3+ /hpf; Nitrate Urine Negative (Negative); Protein Urine 1+ (Negative); RBC Urine 15-25 /hpf (0-2); Squamous Epithelial Cell Urine 0-4 /hpf (0-5); Urine Appearance Clear (CLEAR); Urine Color Yellow (Yellow); Urobilinogen Urine 1 mg/dL (Negative); WBC Urine 0-4 /hpf (0-5); pH Urine 5 (5-7)
[2022-01-21] VITALS (17 sets, daily range): BP systolic 107–150; BP diastolic 55–81; PULSE 73–86; RESP 12–26; TEMP 36.4–36.9; O2SAT 91–97
[2022-01-21] LABS: Slide Review Slide Review Perform
[2022-01-21 00:01] LABS: Absolute Neutrophil 7.4 10^3/cmm (1.4-6.5); Band Neutrophils Absolute 1.4 10^3/cmm (0.0-1.2); Eosinophils 0 %; Lymphocytes 4 %; Lymphocytes Absolute 0.5 10^3/cmm (1.2-3.4); Monocytes Absolute 0.2 10^3/cmm (0.1-0.6); Platelet Estimate Decreased (Normal); Segmented Neutrophils 70 %; Total Cells Counted 100 (0-100); Toxic Granulation 2+
--- NOTE | 2022-01-21 00:16 | ECG_ITS ---
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 Measurements Intervals [place] Rate: 80 P: 79 MS: 185 QRS: -29 QRSD: 95 T: 16 QT: 395 QTc: 456 Interpretive Statements SINUS RHYTHM BORDERLINE LEFT AXIS DEVIATION [QRS AXIS < -20] Compared to ECG 01/20/2022 22:29:13 Myocardial infarct finding no longer present Electronically Signed On 01-21-2022 10:36:37 CDT by Meme Gardner M.D. [id number]
[2022-01-21 01:26] LABS: Troponin 5 2HR 37.82 ng/L (0-15); Troponin 5 2HR Delta 0.82 ABS# (0-10)
--- NOTE | 2022-01-21 04:26 | ECG_ITS ---
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 Measurements Intervals [place] Rate: 76 P: 82 [place]: 206 QRS: -30 QRSD: 101 T: 15 QT: 400 QTc: 450 Interpretive Statements SINUS RHYTHM BORDERLINE LEFT AXIS DEVIATION [QRS AXIS < -20] Compared to ECG 01/21/2022 01:40:54 No significant changes Electronically Signed On 01-21-2022 10:36:08 CDT by Meme Gardner M.D. [id number]
--- NOTE | 2022-01-21 04:42 | P.HP_ITS ---
Providers/Chief Complaint Admitting Physician: Mihaela Castro MD Primary Care Provider: Robert Floyd MD Chief Complaint: general weakness History of Present Illness Kendall Camejo is a 81 year old male with past medical history of diffuse B- cell lymphoma with bony metastasis , currently on chemotherapy,chronic decubitus ulcer, pathological fracture of left clavicle, gout discharged earlier on 01/20. Please see discharge summary for details. He returned in the evening due to p ersisting fatigue and feeling unwell. He noticed black tarry stools. Hemoccult + in the ER. Review of Systems General: Reports: 10 or more systems reviewed and unremarkable except in HPI and below Const: Denies: fever(s), chills or body aches Eyes: Denies: change in vision, blurry vision or photophobia ENMT: Reports: hoarseness; Denies: throat pain, enlarged tonsils, odynophagia or nasal congestion Card: Denies: chest pain, palpitations, irregular heart rhythm, edema, swelling of feet/ankles, lightheadedness, pre-syncope, dyspnea on exertion or orthopnea Resp: Denies: dyspnea, productive cough, non-productive cough, wheezing, stridor, pain on inspiration, change in phlegm color, hemoptysis or chest congestion GI: Denies: abdominal pain, nausea, vomiting, hematemesis, coffee ground emesis, dysphagia, heartburn, diarrhea, constipation, GI cramping, change in stool character, hematochezia or melena : Denies: flank pain, dysuria, urinary frequency, urinary urgency, urinary hesitancy or hematuria Musc: Denies: neck pain, back pain, extremity pain, joint swelling, joint warmth or deformity Neuro: Denies: headache(s), numbness in extremities, weakness in extremities, sensory changes, difficulty walking, frequent falls, dizziness, vertigo, behavioral changes, Slurred speech present or seizure-like activity Psych: Denies: anxiety, depression, suicidal ideation or homicidal ideation Endo: Denies: polyuria, polydipsia, tired all the time, cold intolerance or hot flashes Mauricio/Lymph: Denies: easy bruising or easy bleeding Medications/Allergies Home Medications Medication Instructions Recorded Confirmed Last Taken Type tamsulosin 0.4 mg capsule 0.4 mg PO QPM 07/01/19 01/21/22 01/10/22 History Sole Supports #1 ea 07/15/19 01/21/22 Unknown Rx carbon fiber #1 ea 11/27/19 01/21/22 Unknown Rx Gel toe sleeve, right hallux #1 ea 12/12/19 01/21/22 Unknown Rx acetaminophen 500 mg tablet 1,000 mg PO Q4H PRN Pain 12/10/21 01/21/22 01/11/22 15:00 History 1000 mg ibuprofen-diphenhydramine citrate 1 tab PO BEDTIME 12/10/21 01/21/22 01/11/22 00:00 History 200 mg-38 mg tablet (Advil PM) lactulose 10 gram/15 mL oral 15 ml PO DAILY PRN Constipation 12/12/21 01/21/22 01/10/22 Rx solution #300 mL lorazepam 1 mg tablet 0.5 - 1 mg PO Q6H PRN Severe 12/29/21 01/21/22 Unknown Rx Nausea #30 tabs olanzapine 5 mg tablet 5 mg PO QPM Breakthrough Nausea 12/29/21 01/21/22 01/07/22 Rx and Vomitting #30 tabs prochlorperazine maleate 10 mg 10 mg PO Q4H PRN Mild Nausea #30 12/29/21 01/21/22 Unknown Rx tablet (Compazine) tabs folic acid 1 mg tablet 1 mg PO QPM #90 tabs 01/04/22 01/21/22 01/10/22 Rx prednisone 50 mg tablet See Rx Instructions .Route 01/04/22 01/21/22 01/07/22 Rx .COMPLEX 21 days #10 tabs finished 01/07/22 allopurinol 300 mg tablet 300 mg PO QAM 01/11/22 01/21/22 01/11/22 06:30 History amlodipine 5 mg tablet 5 mg PO QAM 01/11/22 01/21/22 01/11/22 06:30 History dexamethasone 4 mg tablet 2 mg PO QAM 01/11/22 01/21/22 01/11/22 History fluconazole 100 mg tablet 100 mg PO QAM 01/11/22 01/21/22 01/11/22 06:30 History (Diflucan) sennosides 8.6 mg-docusate sodium 2 tab PO BID as directed 01/11/22 01/21/22 01/11/22 06:30 History 50 mg tablet (Senokot-S) sulfamethoxazole 800 1 tab PO .ON MON,MON,Mon01/11/22 01/21/22 Unknown History mg-trimethoprim 160 mg tablet (Bactrim DS) valacyclovir 500 mg tablet 500 mg PO QAM 01/11/22 01/21/22 01/11/22 06:30 History see pharmacy comment pantoprazole 40 mg tablet,delayed 40 mg PO BID #14 tabs 01/22/22 01/21/22 01/11/22 14:30 Rx release (Protonix) Allergies Allergy/AdvReac Type Severity Reaction Status Date / Time meperidine [From Demerol] Allergy Mild ADR/ALGY-Hy Verified 01/10/22 08:46 potension Opioids - Morphine Analogues Allergy Mild ADR/ALGY-Hy Verified 01/10/22 08:46 potension oxycodone [From Percocet] Allergy Mild ADR/ALGY-Hy Verified 01/10/22 08:46 potension PFSH Acute PFSH: Medical History BPH (benign prostatic hyperplasia) 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 Otoole Protein-energy malnutrition Surgical History History of cataract surgery Bilateral cataract excisions Hx of repair of rotator cuff S/P arthroscopic surgery of left knee S/P lymph node biopsy (11/17/21) Core needle biopsy of left supraclavicular lymph node Status post surgical removal of malignant neoplasm of skin Family History Father Cancer Brother Diabetes Denies family history of CAD (coronary artery disease) Clotting disorder Dementia Hyperlipidemia Psychiatric illness Chronic kidney disease (CKD) Suicide Anesthesia complication Bleeding disorder Family history of premature coronary artery disease Lung disease Hypertension Stroke Social History Smoking and tobacco status: former smoker Quit status (tobacco): has quit using tobacco Second hand smoke exposure: Yes Smoking risk assessment/counseling performed?: Yes Alcohol intake: never Desire information about alcohol rehabilitation?: No Counseling given: No Desire information about substance/drug rehabilitation?: No Counseling given: No Adopted: No Caregiver/support person: No Lives independently: Yes Household members: spouse Housing: House Marital status: Current occupational status: retired Current occupational exposures/hazards: No History of recent travel: No Current gender identity: Male Vitals/I&O/Wt Last Vital Signs Temp 97.7 F 01/21/22 02:00 Pulse 81 01/21/22 02:00 Resp 26 H 01/21/22 02:00 BP 132/67 01/21/22 02:00 Pulse Ox 97 01/21/22 02:00 O2 Del Method 01/21/22 01:42 01/20/22 01/20/22 01/21/22 14:59 22:59 06:59 Intake Total 1000 / 1000 Balance 1000 / 1000 Weight last 48 hrs Weight 92.986 kg Physical Exam Narrative: General: No acute distress, AO x3 HEENT: PERRLA, pupils bilaterally equal and reactive, pallors not present Chest: Normal vesicular breath sounds, no added sounds, equal good air entry bilaterally CVS: S1-S2 regular, no murmurs, no tachycardia, no gallops, no rubs Abdomen: Soft, nontender, no organomegaly, bowel sounds present Neuro: No focal deficits, no facial deformity, AO x3, power 5/5 in all limbs Data : 01/22/22 05:24 01/20/22 22:55 Other Labs: Radiology Impressions Chest X-Ray 01/20/22 22:15 IMPRESSION: 1. Interval placement of a right Mediport catheter. 2. No acute findings. Laboratory Results WBC 8.6 10^3/uL (4.0-10.0) 01/20/22 22:55 RBC 2.76 10^6/uL (4.1-5.3) L 01/20/22 22:55 Hgb 8.7 g/dL (11.7-16.6) L 01/20/22 22:55 Hct 25.5 % (42.0-52.0) L 01/20/22 22:55 MCV 92.4 fl (80-94) 01/20/22 22:55 MCH 31.5 pg (28.0-34.0) 01/20/22 22:55 MCHC 34.1 g/dL (30.0-36.0) 01/20/22 22:55 RDW 14.9 % (12.1-15.1) 01/20/22 22:55 Plt Count 69 10^3/cmm (130-400) L 01/20/22 22:55 MPV 11.2 fL (7.4-10.4) H 01/20/22 22:55 Lymph % (Auto) Not Reportable 01/20/22 22:55 [place] % (Auto) Not Reportable 01/20/22 22:55 Lymph # (Auto) Not Reportable 01/20/22 22:55 [place] # (Auto) Not Reportable 01/20/22 22:55 Total Counted 100 (0-100) 01/20/22 22: Atypical Lymphs % 2.0 % (0-5) 01/20/22 22:55 Absolute Neutrophils 7.4 10^3/cmm (1.4-6.5) H 01/20/22 22:55 Segmented Neutrophils 70 % 01/20/22 22:55 Abs Segm Neuts (Man) 6.0 10/cmm (1.6-7.1) 01/20/22 22:55 Band Neutrophils 16.0 % 01/20/22 22:55 Abs Band Neuts (Man) 1.4 10^3/cmm (0.0-1.2) H 01/20/22 22:55 Absolute Lymphocytes 0.5 10^3/cmm (1.2-3.4) L 01/20/22 22:55 Lymphocytes (Manual) 4 % 01/20/22 22:55 Monocytes (Manual) 2.0 % 01/20/22 22:55 Absolute Monocytes 0.2 10^3/cmm (0.1-0.6) 01/20/22 22:55 Eosinophils (Manual) 0 % 01/20/22 22:55 Absolute Eosinophils 0.0 10^3/cmm (0.0-0.7) 01/20/22 22:55 Basophils (Manual) 0.0 % 01/20/22 22:55 Absolute Basophils 0.0 10^3/cmm (0.0-0.2) 01/20/22 22:55 Metamyelocytes 5.0 % 01/20/22 22:55 Myelocytes 1.0 % 01/20/22 22:55 Toxic Granulation 2+ H 01/20/22 22:55 Platelet Estimate Decreased (Normal) 01/20/22 22:55 PT 14.90 SECONDS (12.1-14.9) 01/20/22 22:55 INR 1.14 (0.8-1.2) 01/20/22 22:55 Sodium 134 mmol/L (136-145) L 01/20/22 22:55 Potassium 3.6 mmol/L (3.5-5.1) 01/20/22 22:55 Chloride 99 mmol/L (98-107) 01/20/22 22:55 Carbon Dioxide 24 mmol/L (22-29) 01/20/22 22:55 Anion Gap 14.6 (5-19) 01/20/22 22:55 BUN 21 mg/dL (8-23) 01/20/22 22:55 Creatinine 0.8 mg/dL (0.7-1.2) 01/20/22 22:55 GFR Calculation Not Reportable 01/20/22 22:55 Glucose 147 mg/dL (65-115) H 01/20/22 22:55 Calculated Osmolality 284 mOsm/kg (285-295) L 01/20/22 22:55 Calcium 7.9 mg/dL (8.5-10.5) L 01/20/22 22:55 Total Bilirubin 0.5 mg/dL (0.15-1.2) 01/20/22 22:55 AST 14 U/L (0-40) 01/20/22 22:55 ALT 30 U/L (0-41) 01/20/22 22:55 Alkaline Phosphatase 236 IU/L (40-130) H 01/20/22 22:55 Troponin T Baseline 37 ng/L (0-15) H 01/20/22 22:55 Troponin T 120 Minute 37.82 ng/L (0-15) H 01/21/22 01:00 Delta Troponin T 0.82 ABS# (0-10) 01/21/22 01:00 Total Protein 4.4 g/dL (6.6-8.7) L 01/20/22 22:55 Albumin 3.3 g/dL (3.5-5.2) L 01/20/22 22:55 Globulin 1.1 g/dL (1.3-4.6) L 01/20/22 22:55 Urine Color Yellow (Yellow) 01/20/22 23:15 Urine Appearance Clear (CLEAR) 01/20/22 23:15 Urine pH 5 (5-7) 01/20/22 23:15 Ur Specific [place] 1.020 (1.005-1.030) 01/20/22 23:15 Urine Protein 1+ (Negative) H 01/20/22 23:15 Urine Glucose (UA) Norm (Normal) 01/20/22 23:15 Urine Ketones 1+ (Negative) H 01/20/22 23:15 Urine Blood 3+ (Negative) H 01/20/22 23:15 Urine Nitrate Negative (Negative) 01/20/22 23:15 Urine Bilirubin Neg (Negative) 01/20/22 23:15 Urine Urobilinogen 1 mg/dL (Negative) H 01/20/22 23:15 Ur Leukocyte Esterase Negative (Negative) 01/20/22 23:15 Urine RBC 15-25 /hpf (0-2) H 01/20/22 23:15 Urine WBC 0-4 /hpf (0-5) H 01/20/22 23:15 Ur Squamous Epith Cells 0-4 /hpf (0-5) H 01/20/22 23:15 Calcium Oxalate Crystal 0-4 /hpf H 01/20/22 23:15 Amorphous Sediment Not Reportable 01/20/22 23:15 Urine Bacteria 1+ /hpf (NONE) H 01/20/22 23:15 Urine Mucus 3+ /hpf 01/20/22 23:15 Blood Type A Positive 01/20/22 23:50 Rho(D) Type Positive 01/20/22 23:50 Antibody Screen Negative 01/20/22 23:50 A&P Assessment and plan (1) GI bleed: Patient discharged earlier today, returns with dark stools concerning for rian. Stool hemoccult + trend H&H , currently Hb >8.5 transfusion threshols <7 If falling Hb may need further GI work up Status: Deleted Attestations Medical Necessity Statement*: less than 2 midnight anticipated for management of possible rian, trend H&H and vital signs Coding Level of Care Code Acute Extractions Technologist for [place] Fwd Diagnoses GI bleed K92.2
[2022-01-21] MEDS: dexamethasone 4 mg Tablet 2 MG PO (05:16)
[2022-01-21] MEDS: amlodipine 5 mg Tablet PO (05:16)
[2022-01-21] MEDS: valACYclovir 1,000 mg Tablet 500 MG PO (05:16)
[2022-01-21] MEDS: allopurinol 300 mg Tablet PO (05:16)
[2022-01-21] MEDS: fluconazole 100 mg Tablet PO (05:17)
[2022-01-21] MEDS: pantoprazole 40 mg SDV IVP ×2 (05:18→17:21)
[2022-01-21 06:22] LABS: Hematocrit 21.8 % (42.0-52.0); Hemoglobin 7.3 g/dL (11.7-16.6)
[2022-01-21 06:32] LABS: Troponin 5 6HR 37.11 ng/L (0-15)
[2022-01-21 06:37] LABS: Troponin 5 6HR Delta 0.11 ng/L (0-12)
[2022-01-21] MEDS: sucralfate 1 gm Tablet PO ×4 (06:41→20:57)
--- NOTE | 2022-01-21 09:51 | PC.CHAP ---
Pastoral Care Encounter/Spiritual Assessment Type of Contact [] Declined rural mail contractor visit [] Patient/Family/Request visit [] Outpatient visit [] Follow-up visit [] Physician referral [] Code/Alert [x] Routine visit [] Staff referral [] Actively dying [] Patient sleeping [] Family support [] [] Out of room [] Palliative care [] [] Receiving care in room [] Pre-surgical visit [] Trauma [] Long length of stay [] ICU visit [] Other: Relational/Emotional Strength [x] Patient feels connected with others/family/visitors/staff [] Distress [] Loneliness/isolation [] Abandonment Spirituality of Patient [x] Person of Shanice [] Attends Jewish of their Shanice [x] Believes in Prayer [] Reads Bible or Mandaeism materials [] There are Spiritual issues to be addressed Senior Data Integration Developer Interventions [x] Prayer [x] Active listening x [] Non-anxious presence [] Spiritual/emotional support [] Crisis/trauma care [x] Spiritual counseling [] Bereavement support [] Provided bereavement packet [] Provided Bible/devotional materials [] Provided toy/stuffed animal, coloring book to patient or family member [] Provided Communion [] Anointing/Simpson [] Salvation []x Completed spiritual assessment [] Other: Impact on Illness or Injury [] Angry [] Fearful [] Anxious [] Often cries [] Exhaustion [] Unable to work [] Unable to attend synagogue [] Unable to walk/stand [] Unable to read [] Unable to drive [] Unable to eat/drink [] Unable to sleep [] Unable to be with family [] Patient intubated [] Other: Summary Time spent with patient 10 min
[2022-01-21 10:39] LABS: Hematocrit 22.2 % (42.0-52.0); Hemoglobin 7.6 g/dL (11.7-16.6)
[2022-01-21] MEDS: sulfamethoxazole-trimeth DS 160-800 mg Tablet 1 TAB PO (10:55)
--- NOTE | 2022-01-21 13:00 | PM.PN ---
Subjective Subjective: Patient was discharged yesterday in the evening but ended up coming back to the hospital the same night. Admitted at 1:30 AM. As per the after reaching home patient felt severely weak and was not able to take care of his condition along with 1 possible episode of soft black color bowel movement so he was brought to the ER. Today morning examination patient lying comfortably in bed. States he is feeling extremely weak. Not more than what he was feeling prior to getting discharge yesterday. Denies any nausea, vomiting, headache. We discussed safe discharge planning in detail. We discussed the options of discharge to SNF with hospice, discharge to home with home health, discharge to SNF with physical therapy. We discussed that we are finding it difficult to get patient placed at SNF with ongoing active chemotherapy and he was declined by multiple SNF on last admission. Patient and family would prefer for him to be in SNF around the area. Given all of the above patient states it is most important for him to get stronger and for now would want to hold off on any further chemotherapy going forward. He states he does not think his body can take any more chemotherapy for now. is in agreements. Plan to hold off on chemotherapy going forward. Case management alerted for SNF with physical therapy without chemotherapy. Vitals/I&O/Wt Last Vital Signs Temp 98.4 F 01/21/22 12:37 Pulse 80 01/21/22 12:37 Resp 16 01/21/22 12:37 BP 129/55 01/21/22 12:37 Pulse Ox 96 01/21/22 12:37 O2 Del Method 01/21/22 11:58 01/20/22 01/21/22 01/21/22 22:59 06:59 14:59 Intake Total 1020 / 1020 0 / 0 Output Total 300 / 300 Balance 720 / 720 0 / 0 Weight last 48 hrs Weight 92.986 kg Data : 01/21/22 10:20 01/20/22 22:55 A&P Assessment and plan (1) GI bleed: Stool for occult blood present in the ER. Hemoglobin has remained stable. Hemoglobin seem to [place] 2 times as on discharge. Hold off on any further hemoglobin check today until patient has hemodynamic instability. 2 units of blood transfusion. Status: Acute (2) Physical deconditioning: Status: Acute (3) Protein-energy malnutrition: Status: Acute (4) Leukopenia: Status: Acute (5) Thrombocytopenia: Status: Acute (6) Anemia: Status: Acute (7) Diffuse large B-cell lymphoma of extranodal site: Status: Acute Plan Anemia/thrombocytopenia/leukopenia: Not neutropenic. Secondary to large B-cell lymphoma.? Post first cycle of chemotherapy. Received overall 3 units of blood transfusion. Hemoglobin/platelets stable for now. Fall precaution.? Monitor hemoglobin, platelets. No more chemotherapy as per discussion between the family members and patient at least until patient becomes stronger with physical therapy. Patient wants to hold off on any further chemotherapy for now. Continue home dexamethasone, valacyclovir, fluconazole. We discussed safe discharge planning in detail. We discussed the options of discharge to SNF with hospice, discharge to home with home health, discharge to SNF with physical therapy. We discussed that we are finding it difficult to get patient placed at SNF with ongoing active chemotherapy and he was declined by multiple SNF on last admission. Patient and family would prefer for him to be in SNF around the area. Given all of the above patient states it is most important for him to get stronger and for now would want to hold off on any further chemotherapy going forward. He states he does not think his body can take any more chemotherapy for now. is in agreements. Plan to hold off on chemotherapy going forward. Case management alerted for SNF with physical therapy without chemotherapy. Analgesia: Tylenol 650 mg every 6 hours as needed, morphine 1 mg every 4 hours as needed. Glycemic control: Not needed Nutrition: Full liquid diet, boost with each meal CODE STATUS: Full code. PUD prophylaxis: Protonix DVT prophylaxis: SCDs Attestations Medical Necessity Statement*: Requires further hospitalization for management of severe physical deconditioning, protein energy malnutrition in a patient with diffuse large B-cell lymphoma while safe discharge planning is SNF is sought as patient is severely deconditioned and is not able to take care of patient at home. Time Spent in Patient Care: Greater than 35 minutes Coding Level of Care Code Acute Telephone Supervisor for Chg Fwd Diagnoses GI bleed K92.2 Physical deconditioning R53.81 Protein-energy malnutrition E46 Leukopenia D72.819 Thrombocytopenia D69.6 Anemia D64.9 Diffuse large B-cell lymphoma of extranodal site C83.39
[2022-01-21] MEDS: acetaminophen 325 mg Tablet 650 MG PO (13:02)
[2022-01-21] MEDS: sodium chloride 0.9% (100 ml) 100 ML ×2 (13:03→17:21)
[2022-01-21] MEDS: folic acid 1 mg Tablet PO (17:20)
[2022-01-21] MEDS: OLANZapine 5 mg TABLET PO (17:20)
[2022-01-21] MEDS: tamsulosin 0.4 mg Capsule PO (17:21)
--- NOTE | 2022-01-21 17:56 | PC.PT ---
Discussed PT evaluation need, as patient was just discharged from here with senior care specialist, senior care specialist states PT evaluation no longer needed as [facility] has accepted prior PT notes, and patient is to be discharged or tomorrow, no need for PT evaluation.
[2022-01-21 22:06] LABS: Hematocrit 27.5 % (42.0-52.0); Hemoglobin 9.4 g/dL (11.7-16.6)
[2022-01-22] VITALS: BP 151/83; PULSE 83; RESP 13; TEMP 36.4; O2SAT 95
[2022-01-22 04:00] VITALS: BP 120/64; PULSE 69; RESP 12; TEMP 36.6; O2SAT 95
[2022-01-22] MEDS: fluconazole 100 mg Tablet PO (04:50)
[2022-01-22] MEDS: allopurinol 300 mg Tablet PO (04:50)
[2022-01-22] MEDS: amlodipine 5 mg Tablet PO (04:50)
[2022-01-22] MEDS: valACYclovir 1,000 mg Tablet 500 MG PO (04:51)
[2022-01-22] MEDS: dexamethasone 4 mg Tablet 2 MG PO (04:51)
[2022-01-22] MEDS: sucralfate 1 gm Tablet PO ×2 (04:51→11:23)
[2022-01-22] MEDS: pantoprazole 40 mg SDV IVP (04:52)
[2022-01-22 05:35] LABS: SARS Covid-2 Antigen Negative (Negative)
[2022-01-22 05:53] LABS: Hematocrit 27.7 % (42.0-52.0); Hemoglobin 9.1 g/dL (11.7-16.6); Mean Corpuscular HGB Conc 32.9 g/dL (30.0-36.0); Mean Corpuscular Hemoglobin 30.1 pg (28.0-34.0); Mean Corpuscular Volume 91.7 fl (80-94); Mean Platelet Volume 10.6 fL (7.4-10.4); Platelet Count 70 10^3/cmm (130-400); Red Blood Count 3.02 10^6/uL (4.1-5.3); Red Cell Distribution Width 16.9 % (12.1-15.1)
[2022-01-22 07:03] LABS: Slide Review Slide Review Perform
[2022-01-22 07:08] LABS: Absolute Segmented Neutrophil 4.9 10/cmm (1.6-7.1); Band Neutrophils Absolute 1.1 10^3/cmm (0.0-1.2); Corrected White Blood Count 6.7 10^3/cmm (4.8-10.8); Eosinophils 0 %; Lymphocytes 3 %; Lymphocytes Absolute 0.2 10^3/cmm (1.2-3.4); Segmented Neutrophils 70 %; Total Cells Counted 100 (0-100)
[2022-01-22 07:11] LABS: Platelet Estimate Decreased (Normal)
[2022-01-22 07:25] VITALS: BP 122/69; PULSE 74; RESP 18; TEMP 36.6; O2SAT 97
--- NOTE | 2022-01-22 09:54 | P.DS_ITS ---
Discharge Providers Date of Admission: 01/21/22 00:57 Date of Discharge: January 22, 2022 Attending Provider at Admission: Mihaela Castro MD Attending Provider at Discharge: Toby Puentes MD Primary Care Provider: Robert Floyd MD Diagnoses at Discharge Discharge Diagnosis (1) GI bleed: Status: Acute (2) Physical deconditioning: Status: Acute (3) Protein-energy malnutrition: Status: Acute (4) Leukopenia: Status: Acute (5) Thrombocytopenia: Status: Acute (6) Anemia: Status: Acute (7) Diffuse large B-cell lymphoma of extranodal site: Status: Acute Reason for Visit Reason for Visit: general weakness Hospital Course Hospital Course 81 year old male with past medical history of diffuse B-cell lymphoma with bony metastasis , currently on chemotherapy,? chemotherapy received last Monday, chronic decubitus ulcer, pathological fracture of left clavicle, gout he was initially in the hospital from 01/11-0 01/20 when he was treated for acute anemia requiring 3 units of blood transfusion and severe physical deconditioning. On his prior admission multiple attempts to place at [facility] patient and patient's [place] were done but unfortunately was declined. Family chose patient to be discharged home with home health. He was eventually discharged on 01/20. Patient presented back to the ER on 01/20 night because of extreme weakness, tiredness with unable to take care of him at home. On admission the standers also concern for possible melena. His hemoglobin during hospitalization remained stable but because of extreme weakness he received a unit of blood transfusion to which his hemoglobin responded well. Again discharge planning was discussed in detail. We discussed the options of discharge to SNF with hospice, discharge to home with home health, discharge to SNF with physical therapy.? We discussed that we are finding it difficult to get patient placed at SNF with ongoing active chemotherapy and he was declined by multiple SNF on last admission.? Patient and family would prefer for him to be in SNF around the area.? Given all of the above patient states it is most important for him to get stronger and for now would want to hold off on any further chemotherapy going forward.? He states he does not think his body can take any more chemotherapy for now.? is in agreements.? Plan to hold off on chemotherapy going forward. Patient has been accepted at SNF. He is been discharged in hemodynamically stable condition for further rehabitation. Physical Exam Narrative: General: No acute distress, AO x3 HEENT: PERRLA, pupils bilaterally equal and reactive, pallors not present Chest: Normal vesicular breath sounds, no added sounds, equal good air entry radha aterally CVS: S1-S2 regular, no murmurs, no tachycardia, no gallops, no rubs Abdomen: Soft, nontender, no organomegaly, bowel sounds present Neuro: No focal deficits, no facial deformity, AO x3, power 5/5 in all limbs Discharge Data Studies Completed and Pending Completed Studies During Hospitalization Category Date Time Status XR chest 1V portable [id number] Urgent Exams 01/20/22 22:15 Completed Pending at discharge Category Date Time Status Urine Culture Stat Lab 01/20/22 23:15 Received Radiology Impressions Chest X-Ray 01/20/22 22:15 IMPRESSION: 1. Interval placement of a right Mediport catheter. 2. No acute findings. Laboratory Results WBC 7.0 10^3/uL (4.0-10.0) 01/22/22 05:24 Corrected WBC 6.7 10^3/cmm (4.8-10.8) 01/22/22 05:24 RBC 3.02 10^6/uL (4.1-5.3) L 01/22/22 05:24 Hgb 9.1 g/dL (11.7-16.6) L 01/22/22 05:24 Hct 27.7 % (42.0-52.0) L 01/22/22 05:24 MCV 91.7 fl (80-94) 01/22/22 05:24 MCH 30.1 pg (28.0-34.0) 01/22/22 05:24 MCHC 32.9 g/dL (30.0-36.0) 01/22/22 05:24 RDW 16.9 % (12.1-15.1) H 01/22/22 05:24 Plt Count 70 10^3/cmm (130-400) L 01/22/22 05:24 MPV 10.6 fL (7.4-10.4) H 01/22/22 05:24 Lymph % (Auto) Not Reportable 01/22/22 05:24 [place] % (Auto) Not Reportable 01/22/22 05:24 Lymph # (Auto) Not Reportable 01/22/22 05:24 [place] # (Auto) Not Reportable 01/22/22 05:24 Total Counted 100 (0-100) 01/22/22 05:24 Atypical Lymphs % 0.0 % (0-5) 01/22/22 05:24 Absolute Neutrophils 6.0 10^3/cmm (1.4-6.5) 01/22/22 05:24 Segmented Neutrophils 70 % 01/22/22 05:24 Abs Segm Neuts (Man) 4.9 10/cmm (1.6-7.1) 01/22/22 05:24 Band Neutrophils 16.0 % 01/22/22 05:24 Abs Band Neuts (Man) 1.1 10^3/cmm (0.0-1.2) 01/22/22 05:24 Absolute Lymphocytes 0.2 10^3/cmm (1.2-3.4) L 01/22/22 05:24 Lymphocytes (Manual) 3 % 01/22/22 05:24 Monocytes (Manual) 0.0 % 01/22/22 05:24 Absolute Monocytes 0.0 10^3/cmm (0.1-0.6) L 01/22/22 05:24 Eosinophils (Manual) 0 % 01/22/22 05:24 Absolute Eosinophils 0.0 10^3/cmm (0.0-0.7) 01/22/22 05:24 Basophils (Manual) 0.0 % 01/22/22 05:24 Absolute Basophils 0.0 10^3/cmm (0.0-0.2) 01/22/22 05:24 Metamyelocytes 9.0 % 01/22/22 05:24 Myelocytes 2.0 % 01/22/22 05:24 Nucleated RBCs 4.0 /100WBC (0-1) H 01/22/22 05:24 Toxic Granulation 2+ H 01/20/22 22:55 Platelet Estimate Decreased (Normal) 01/22/22 05:24 PT 14.90 SECONDS (12.1-14.9) 01/20/22 22:55 INR 1.14 (0.8-1.2) 01/20/22 22:55 Sodium 134 mmol/L (136-145) L 01/20/22 22:55 Potassium 3.6 mmol/L (3.5-5.1) 01/20/22 22:55 Chloride 99 mmol/L (98-107) 01/20/22 22:55 Carbon Dioxide 24 mmol/L (22-29) 01/20/22 22:55 Anion Gap 14.6 (5-19) 01/20/22 22:55 BUN 21 mg/dL (8-23) 01/20/22 22:55 Creatinine 0.8 mg/dL (0.7-1.2) 01/20/22 22:55 GFR Calculation Not Reportable 01/20/22 22:55 Glucose 147 mg/dL (65-115) H 01/20/22 22:55 Calculated Osmolality 284 mOsm/kg (285-295) L 01/20/22 22:55 Calcium 7.9 mg/dL (8.5-10.5) L 01/20/22 22:55 Total Bilirubin 0.5 mg/dL (0.15-1.2) 01/20/22 22:55 AST 14 U/L (0-40) 01/20/22 22:55 ALT 30 U/L (0-41) 01/20/22 22:55 Alkaline Phosphatase 236 IU/L (40-130) H 01/20/22 22:55 Troponin T Baseline 37 ng/L (0-15) H 01/20/22 22:55 Troponin T 120 Minute 37.82 ng/L (0-15) H 01/21/22 01:00 Delta Troponin T 0.82 ABS# (0-10) 01/21/22 01:00 Troponin T Hi Sens 6Hr 37.11 ng/L (0-15) H 01/21/22 05:15 Troponin T Hi Sens 6Hr Delta 0.11 ng/L (0-12) 01/21/22 05:15 Total Protein 4.4 g/dL (6.6-8.7) L 01/20/22 22:55 Albumin 3.3 g/dL (3.5-5.2) L 01/20/22 22:55 Globulin 1.1 g/dL (1.3-4.6) L 01/20/22 22:55 Urine Color Yellow (Yellow) 01/20/22 23:15 Urine Appearance Clear (CLEAR) 01/20/22 23:15 Urine pH 5 (5-7) 01/20/22 23:15 Ur Specific [place] 1.020 (1.005-1.030) 01/20/22 23:15 Urine Protein 1+ (Negative) H 01/20/22 23:15 Urine Glucose (UA) Norm (Normal) 01/20/22 23:15 Urine Ketones 1+ (Negative) H 01/20/22 23:15 Urine Blood 3+ (Negative) H 01/20/22 23:15 Urine Nitrate Negative (Negative) 01/20/22 23:15 Urine Bilirubin Neg (Negative) 01/20/22 23:15 Urine Urobilinogen 1 mg/dL (Negative) H 01/20/22 23:15 Ur Leukocyte Esterase Negative (Negative) 01/20/22 23:15 Urine RBC 15-25 /hpf (0-2) H 01/20/22 23:15 Urine WBC 0-4 /hpf (0-5) H 01/20/22 23:15 Ur Squamous Epith Cells 0-4 /hpf (0-5) H 01/20/22 23:15 Calcium Oxalate Crystal 0-4 /hpf H 01/20/22 23:15 Amorphous Sediment Not Reportable 01/20/22 23:15 Urine Bacteria 1+ /hpf (NONE) H 01/20/22 23:15 Urine Mucus 3+ /hpf 01/20/22 23:15 SARS-CoV-2 Ag (Rapid) Negative (Negative) 01/22/22 04:55 Blood Type A Positive 01/21/22 10:23 Rho(D) Type Positive 01/21/22 10:23 Antibody Screen Negative 01/21/22 10:23 Crossmatch See Detail 01/21/22 10:23 Vitals Last Vital Signs Temp 97.8 F 01/22/22 07:25 Pulse 74 01/22/22 07:25 Resp 18 01/22/22 07:25 BP 122/69 01/22/22 07:25 Pulse Ox 97 01/22/22 07:25 O2 Del Method 01/22/22 07:25 Discharge Plan Discharge Patient Disposition: Xfer SNF Condition: Stable Prescriptions: Continued tamsulosin 0.4 mg capsule 0.4 mg PO QPM (DME) Sole Supports Qty: 1 0RF Rx Instructions: As directed (DME) carbon fiber See Rx Instructions .ROUTE .MEDSUPPLY Qty: 1 0RF Rx Instructions: As directed (DME) Gel toe sleeve, right hallux See Rx Instructions .Route .MEDSUPPLY Qty: 1 0RF Rx Instructions: As directed prochlorperazine maleate [Compazine] 10 mg tablet 10 mg PO Q4H PRN (Reason: Mild Nausea) Qty: 30 3RF folic acid 1 mg tablet 1 mg PO QPM Qty: 90 3RF prednisone 50 mg tablet See Rx Instructions .ROUTE .COMPLEX 21 Days Qty: 10 0RF Rx Instructions: Take 100 mg (2 tablets) orally on days 1 through 5 of treatment. olanzapine 5 mg Tablet 5 mg PO QPM Qty: 30 3RF Rx Instructions: Take for 5 days post chemo. lorazepam 1 mg Tablet 0.5 - 1 mg PO Q6H PRN (Reason: Severe Nausea) Qty: 30 3RF acetaminophen 500 mg Tablet 1,000 mg PO Q4H PRN (Reason: Pain) Advil PM 200-38 mg Tablet 1 tab PO BEDTIME lactulose 10 gram/15 mL solution 15 ml PO DAILY PRN (Reason: Constipation) Qty: 300 0RF sennosides-docusate sodium [Senokot-S] 8.6-50 mg Tablet 2 tab PO BID fluconazole [Diflucan] 100 mg tablet 100 mg PO QAM Rx Instructions: For fungal infection prevention. amlodipine 5 mg tablet 5 mg PO QAM valacyclovir 500 mg tablet 500 mg PO QAM Rx Instructions: Continue 3 months post treatment for prevention of viral infection. sulfamethoxazole-trimethoprim [Bactrim DS] 800-160 mg tablet 1 tab PO .ON MON,MON,MON Rx Instructions: For infection prevention take on Monday, Monday and Monday while on chemo and for 3 months after completion dexamethasone 4 mg tablet 2 mg PO QAM allopurinol 300 mg tablet 300 mg PO QAM Changed Protonix 40 mg tablet,delayed release (DR/EC) 40 mg PO BID Qty: 14 0RF Discharge Orders: Discharge Order (Routine); Ordered 01/22/22 Ordered By: Toby Puentes Referrals: Robert Floyd MD [Primary Care Provider] - 7-10 days Nic Dickey MD [Hospitalist] - 2 weeks Discharge Diet: Cardiac Discharge Activity: Resume usual activity and Increase activity as tolerated Patient Instructions: Opioid Safety Activity Restrictions/Additional Instructions: Please increase your physical activity as much as possible. Continue working with physical therapy as discussed in detail. Please follow-up with a primary care provider within next 1 week for repeat CBC. Please follow-up with Dr. Dickey in 2 weeks Discharge Attestations Time Spent in Discharge Care*: greater than 30 min Specific Discharge Activities: educating patient, educating and/or supporting family/caregiver, discussing with case briefer/social workers/dc planners, documenting/other paperwork and evaluating patient/reviewing data Status at Discharge: Cognitive status at discharge: cognitively intact , Behavioral status at discharge: cooperative , Functional status at discharge: other assisted ambulation , Overall status at discharge: patient has a new baseline Quality Metrics Clinical Quality Measures [ No reported AMI, CVA or VTE this stay] Coding Level of Care Code Acute Chg FW DC note Diagnoses GI bleed K92.2 Physical deconditioning R53.81 Protein-energy malnutrition E46 Leukopenia D72.819 Thrombocytopenia D69.6 Anemia D64.9 Diffuse large B-cell lymphoma of extranodal site C83.39
[2022-01-22 11:40] VITALS: BP 119/68; PULSE 69; RESP 18; TEMP 36.7; O2SAT 96
[2022-01-22 12:55] VITALS: BP 119/68; PULSE 69; RESP 18; TEMP 36.7; O2SAT 96
== END 2022-01-22 12:57 | disposition skilled nursing facility (03) ==
LOC: ER 01-21 00:31 → MEDSURG 01-21 02:14
PROVIDERS: Admitting Provider Student in an Organized Health Care Education/Training Program; Emergency Provider Emergency Medicine; PCP Family Medicine; Visit Provider Student in an Organized Health Care Education/Training Program
DX: K92.2 Gastrointestinal hemorrhage, unspecified (principal); R53.81 Other malaise; E46 Unspecified protein-calorie malnutrition; D72.819 Decreased white blood cell count, unspecified; D69.6 Thrombocytopenia, unspecified; D64.9 Anemia, unspecified; C83.39 Diffuse large B-cell lymphoma, extranodal and solid organ sites; N40.0 Benign prostatic hyperplasia without lower urinary tract symptoms; Z87.891 Personal history of nicotine dependence
CPT/HCPCS: 36415; 36430; 36591; 71045; 80053; 81001; 84484; 85007; 85014; 85018; 85025; 85610; 86850; 86900; 86920; 87086; 87426; 93005; 96361; 96374; 96376; 99285; C9113; G0378; J7030; J8540; P9016

== ENCOUNTER 2022-01-29 11:24 | Inpatient (IN) | payer OTHER, MEDICARE, SELFPAY ==
[2022-01-29] VITALS (16 sets, daily range): BP systolic 95–122; BP diastolic 45–60; PULSE 72–107; RESP 14–18; TEMP 36.6–36.9; O2SAT 93–100; BMI 25.4; BMI 26.6
--- NOTE | 2022-01-29 11:29 | ED_ITS ---
HPI - Weakness General: Chief complaint: Weakness Stated complaint: GENERAL WEAKNESS Time Seen by Provider: 01/29/22 11:29 History of Present Illness: Mr. Camejo is a 81-year-old gentleman with complex past medical history including hypertension, hyperlipidemia, diffuse large B- cell lymphoma, recurrent anemia and recent hospitalization who presents to the emergency department due to new seizure-like episode and weakness. The patient reports lower blood pressure than normal yesterday while in a rehab nursing facility and received IV fluids. He was supposed to have a 1 day trial at home today however upon attempting to get in the car he felt generalized weakness and partially fell. He then had a witnessed seizure with shaking and eyes rolled into the back of his head. This lasted approximately 30 seconds and had a short postictal period. No reported history of seizures. He currently has a generalized headache which is moderate in intensity. He endorses generalized malaise and weakness. No other specific changes in health, exacerbating, or alleviating factors identified. 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 Otoole Protein-energy malnutrition Surgical History History of cataract surgery Bilateral cataract excisions Hx of repair of rotator cuff S/P arthroscopic surgery of left knee S/P lymph node biopsy (11/17/21) Core needle biopsy of left supraclavicular lymph node Status post surgical removal of malignant neoplasm of skin Family History Father Cancer Brother Diabetes Denies family history of CAD (coronary artery disease) Clotting disorder Dementia Hyperlipidemia Psychiatric illness Chronic kidney disease (CKD) Suicide Anesthesia complication Bleeding disorder Family history of premature coronary artery disease Lung disease Hypertension Stroke Social History (Updated 01/29/22 @ 16:29 by Chema Espinoza MD) Smoking and tobacco status: former smoker Quit status (tobacco): has quit using tobacco Second hand smoke exposure: Yes Smoking risk assessment/counseling performed?: Yes Alcohol intake: never Desire information about alcohol rehabilitation?: No Counseling given: No Desire information about substance/drug rehabilitation?: No Counseling given: No Adopted: No Caregiver/support person: No Lives independently: Yes Household members: spouse Housing: Other Details: Rehabbing at [facility] Marital status: Current occupational status: retired Current occupational exposures/hazards: No History of recent travel: No Current gender identity: Male Physical Exam Const: COMMON NORMALS: patient oriented x3 and alert GENERAL APPEARANCE: cooperative, well developed and ill appearing (chronically) HENMT: COMMON NORMALS: normocephalic and atraumatic HEAD & SCALP: normocephalic and atraumatic THROAT: posterior oropharynx normal Eye: COMMON NORMALS: conjunctivae normal CONJUNCTIVA: Yes conjunctivae normal SCLERA: sclerae normal Neck/C-Spine: COMMON NORMALS: supple GENERAL: Yes trachea midline Resp: COMMON NORMALS: clear to auscultation bilaterally EFFORT & INSPECTION: Yes able to speak in complete sentences AUSCULTATION: clear to auscultation bilaterally Cardio: COMMON NORMALS: regular rate and regular rhythm RATE: regular rate RHYTHM: regular rhythm GI: COMMON NORMALS: Soft to palpation PALPATION: Yes Soft to palpation and No Tenderness to palpation present (GI) PERCUSSION: normal to percussion RECTAL EXAM: Yes normal sphincter tone and Yes heme positive stool 2+; Negative for gross blood Back/Pelvis: OTHER: Small stage II pressure injuries on the bilateral medial infra gluteal region surrounded by stage I. No vesicular lesions or other rash. Extremity: GENERAL: Yes normal exam except as noted and No edema Neuro: COMMON NORMALS: patient oriented x3, CN's II-XII intact bilaterally, moves all extremities, no focal motor deficits and no sensory deficits noted SENSORIUM/ORIENTATION: Yes alert and No Orientation impaired Psych: COMMON NORMALS: mental status grossly normal and Normal thought process present THOUGHT PROCESS: Normal thought process present Course ED course: - Patient was seen and evaluated by me at bedside - Patient placed on cardiac monitors, IV access obtained - Initial evaluation notable for exam as above. EKG shows sinus rhythm with nonspecific ST segment abnormalities, no STEMI. - Labs personally interpreted by me - Fluids, analgesia, and proton pump inhibitor given - Labs notable for mild leukocytosis, significant anemia. Mild metabolic stress identified on metabolic panel. Lactic acid elevated. No UTI. -Patient consented for blood transfusion and transfusion ordered. - Imaging notable for head CT and cervical spine CT with degenerative changes, no acute process. CT chest abdomen pelvis with likely metastatic disease and recent past nephrolithiasis that are now bladder stones. - Upon serial reexamination after treatment the patient was improved - Based on patient history, evaluation, and testing as interpreted the most likely cause of the patient's condition is seizure which is new onset perhaps related to anemia with orthostatic symptoms. - The results of ED evaluation were discussed with the patient including plan for admission due to requirement for level of care not available if discharged to prevent significant worsening/deterioration. - Admitting service was contacted and Dr Espinoza with the hospitalist service agreed to admit the patient - Patient was admitted without further deterioration or significant events. Note: Click bubbles or prepopulated duron in note writing are used for assistance with data collection and billing and are inherently more limited than narrative and other text portions of this note. Please use narrative for additional clinical history and defer to narrative/free test for any case of contradictory information. If information appears in only free text or click bubble it should be considered present or absent as reported. Please contact note parts data writer for clarifications of clinical information or contradictory information. MDM is a brief summary, contradictory or erroneous seeming information should be clarified and full note should be reviewed. Vital Signs: Vital signs: Vital Signs Temperature 98.1 F 02/03/22 16:34 Pulse Rate 91 02/03/22 16:34 Respiratory Rate 16 02/03/22 16:34 Blood Pressure 151/76 02/03/22 16:34 Pulse Oximetry 98 02/03/22 16:34 Oxygen Delivery Nv thod 02/03/22 16:00 Oxygen Flow Rate 2 02/03/22 07:56 MDM - Weakness Medical Decision Making 81-year-old gentleman with complex past medical history presenting for any seizure-like episode which is new. Patient found to have significant anemia likely secondary to GI bleed though no gross blood on rectal exam. Patient consented for transfusion and transfusion ordered. Admitted for further management. Medical Records I reviewed the patient's medical records. Lab Data I reviewed the patient's lab results. : 02/03/22 10:16 02/02/22 05:38 Radiology Impressions Cervical Spine CT 01/29/22 11:43 IMPRESSION: There are degenerative changes as described above. No evidence for acute fracture. Head CT 01/29/22 11:43 IMPRESSION: There are senescent changes of the brain as described above. No evidence for large acute ischemic infarction or acute intracranial injury. Chest/Abdomen/Pelvis CT 01/29/22 12:38 IMPRESSION: Destructive changes at the posterior aspect of the left 8th rib are unchanged from the prior study. There are degenerative changes in the visualized spine. IMPRESSION: 1. Stable lytic lesion involving the right iliac bone. There are mixed lucent/sclerotic densities in multiple lower thoracic/lumbar vertebra as well, similar to the prior study. Findings raise concern for osseous metastatic disease. 2. There is a 3 mm calculus in the bladder adjacent to the left UVJ and a 2 mm calculus in the bladder adjacent to the right UVJ which were not seen on the prior study. No evidence for hydronephrosis or hydroureter. 3. Colonic constipation is present. 4. The bladder wall appears somewhat thickened. This is nonspecific and may represent bladder outlet obstruction, inflammation or infection. Neoplastic process is included in the differential. Venous Duplex 01/29/22 16:34 IMPRESSION: No evidence of deep vein thrombosis. Laboratory Results WBC 10.2 10^3/uL (4.0-10.0) H 01/29/22 12:05 Corrected WBC 9.6 10^3/cmm (4.8-10.8) 01/29/22 12:05 RBC 1.62 10^6/uL (4.1-5.3) L 01/29/22 12:05 Hgb 5.1 g/dL (11.7-16.6) L* 01/29/22 12:05 Hct 16.0 % (42.0-52.0) L* 01/29/22 12:05 Hct 16.0 % (42.0-52.0) L* 01/29/22 12:05 MCV 98.8 fl (80-94) H 01/29/22 12:05 MCH 31.5 pg (28.0-34.0) 01/29/22 12:05 MCHC 31.9 g/dL (30.0-36.0) 01/29/22 12:05 RDW 18.6 % (12.1-15.1) H 01/29/22 12:05 Plt Count 135 10^3/cmm (130-400) 01/29/22 12:05 MPV 10.4 fL (7.4-10.4) 01/29/22 12:05 Neut % (Auto) Tractor Expert 01/29/22 12:05 Lymph % (Auto) Tractor Expert 01/29/22 12:05 [place] % (Auto) Tractor Expert 01/29/22 12:05 Eos % (Auto) Tractor Expert 01/29/22 12:05 Baso % (Auto) Tractor Expert 01/29/22 12:05 Reticulocyte % (Auto) 6.4 % (0.5-2.0) H 01/29/22 12:05 Neut # (Auto) Tractor Expert 01/29/22 12:05 Lymph # (Auto) Tractor Expert 01/29/22 12:05 [place] # (Auto) Tractor Expert 01/29/22 12:05 Eos # (Auto) Tractor Expert 01/29/22 12:05 Baso # (Auto) Tractor Expert 01/29/22 12:05 Nucleated RBC % (auto) Tractor Expert 01/29/22 12:05 Total Counted 100 (0-100) 01/29/22 12:05 Atypical Lymphs % 0.0 % (0-5) 01/29/22 12:05 Absolute Neutrophils 9.3 10^3/cmm (1.4-6.5) H 01/29/22 12:05 Segmented Neutrophils 80 % 01/29/22 12:05 Abs Segm Neuts (Man) 8.2 10/cmm (1.6-7.1) H 01/29/22 12:05 Band Neutrophils 11.0 % 01/29/22 12:05 Abs Band Neuts (Man) 1.1 10^3/cmm (0.0-1.2) 01/29/22 12:05 Absolute Lymphocytes 0.0 10^3/cmm (1.2-3.4) L 01/29/22 12:05 Lymphocytes (Manual) 0 % 01/29/22 12:05 Monocytes (Manual) 4.0 % 01/29/22 12:05 Absolute Monocytes 0.4 10^3/cmm (0.1-0.6) 01/29/22 12:05 Eosinophils (Manual) 0 % 01/29/22 12:05 Absolute Eosinophils 0.0 10^3/cmm (0.0-0.7) 01/29/22 12:05 Basophils (Manual) 0.0 % 01/29/22 12:05 Absolute Basophils 0.0 10^3/cmm (0.0-0.2) 01/29/22 12:05 Metamyelocytes 1.0 % 01/29/22 12:05 Myelocytes 4.0 % 01/29/22 12:05 Nucleated RBCs 6.0 /100WBC (0-1) H 01/29/22 12:05 Nucleated RBCs # Tractor Expert 01/29/22 12:05 Platelet Estimate Normal (Normal) 01/29/22 12:05 Polychromasia Trace 01/29/22 12:05 Anisocytosis 1+ H 01/29/22 12:05 Microcytosis Trace 01/29/22 12:05 Macrocytosis Trace 01/29/22 12:05 Retic Production Index 2.56 01/29/22 12:05 Haptoglobin 128.0 mg/L (30-200) 01/29/22 12:05 D-Dimer 9.59 ug/mIFEU (0-0.59) H 01/29/22 12:05 Sodium 138 mmol/L (136-145) 01/29/22 12:05 Potassium 4.1 mmol/L (3.5-5.1) 01/29/22 12:05 Chloride 103 mmol/L (98-107) 01/29/22 12:05 Carbon Dioxide 20 mmol/L (22-29) L 01/29/22 12:05 Anion Gap 19.1 (5-19) H 01/29/22 12:05 BUN 41 mg/dL (8-23) H 01/29/22 12:05 Creatinine 0.9 mg/dL (0.7-1.2) 01/29/22 12:05 GFR Calculation Not Reportable 01/29/22 12:05 Glucose 152 mg/dL (65-115) H 01/29/22 12:05 POC Glucose 163 mg/dL (70-110) H 01/29/22 12:07 Calculated Osmolality 299 mOsm/kg (285-295) H 01/29/22 12:05 Lactate 4.3 mmol/L (0.5-2.2) H* 01/29/22 12:05 Calcium 8.9 mg/dL (8.5-10.5) 01/29/22 12:05 Magnesium 1.8 mg/dL (1.7-2.3) 01/29/22 12:05 Total Bilirubin 0.3 mg/dL (0.15-1.2) 01/29/22 12:05 AST 16 U/L (0-40) 01/29/22 12:05 ALT 18 U/L (0-41) 01/29/22 12:05 Alkaline Phosphatase 85 IU/L (40-130) 01/29/22 12:05 Lactate Dehydrogenase 623 U/L (135-225) H 01/29/22 12:05 Creatine Kinase 28 U/L (39-308) L 01/29/22 12:05 C-Reactive Protein 3.0 mg/L (0.0-4.9) 01/29/22 12:05 NT-Pro-B Natriuret Pep 687 pg/mL (0-450) H 01/29/22 12:05 Total Protein 4.3 g/dL (6.6-8.7) L 01/29/22 12:05 Albumin 2.8 g/dL (3.5-5.2) L 01/29/22 12:05 Globulin 1.5 g/dL (1.3-4.6) 01/29/22 12:05 Procalcitonin 0.14 ng/mL (0-0.5) 01/29/22 12:05 TSH 7.46 uIU/mL (0.27-4.20) H 01/29/22 12:05 Free T4 1.16 ng/dL (0.82-1.77) 01/29/22 12:05 Blood Type A Positive 01/29/22 12:45 Rho(D) Type Positive 01/29/22 12:45 Antibody Screen Negative 01/29/22 12:45 Crossmatch See Detail 01/29/22 12:45 Critical Care Time Critical Care Time: Critical Care Time: Yes Total Critical Care Time: 45 Attestation: Due to a high probability of clinically significant, possibly life threatening deterioration, the patient required my highest level of attention and prepare dness to intervene emergently and I personally spent this critical care time directly and personally managing the patient. This critical care time included obtaining a history; examining the patient; pulse oximetry; ordering and review of laboratory and imaging studies; arranging urgent treatment with development of a management plan; evaluation of patient's response to treatment; frequent reassessment; and, discussions with other providers as applicable. It was exclusive of separately billable procedures. Primary system involved is neuro and GI/vascular Discharge Plan Discharge Patient Disposition: Admitted As Inpatient Admit Provider: Chema Espinoza Clinical Impression: GI bleed, Diffuse large B-cell lymphoma of extranodal site, Acute on chronic blood loss anemia, Syncope, Observed seizure-like activity, Acidosis, lactic, At risk for fluid volume overload Condition: Stable Discharge Diet: Usual diet Discharge Activity: Resume usual activity Coding Level of Care Code ED Transmission Builder for Chg Fwd Exam Comprehensive
--- NOTE | 2022-01-29 11:32 | ECG_ITS ---
[facility] Test Date: 2022-01-29 Pat Name: Kendall Camejo Department: Room: Gender: Male Crew Leader: : 1940 Requested By: Frandy Hebert Order Number: [id number] Young MD: Albaro Salcedo M.D. Measurements Intervals [place] Rate: 103 P: 20 VA: 167 QRS: -12 QRSD: 102 T: 33 QT: 322 QTc: 422 Interpretive Statements SINUS TACHYCARDIA POSSIBLE ANTERIOR MYOCARDIAL INFARCTION , PROBABLY OLD [30 ms Q WAVE IN V3/V4, OR R < 0.2 mV IN V4] ABNORMAL RHYTHM ECG Compared to ECG 01/21/2022 04:26:59 Myocardial infarct finding now present Sinus rhythm no longer present Electronically Signed On 01-29-2022 19:09:54 CDT by Albaro Salcedo M.D. [id number]
--- NOTE | 2022-01-29 11:43 | CTR_ITS ---
PROCEDURE INFORMATION: Exam: CT Head Without Contrast Exam date and time: 01/29/2022 12:26 PM Age: 81 years old Clinical indication: Injury or trauma; Fall; Blunt trauma (contusions or hematomas); Additional info: New headache, seizure like episode TECHNIQUE: Imaging protocol: Computed tomography of the head without contrast. Radiation optimization: All CT scans at this facility use at least one of these dose optimization techniques: automated exposure control; mA and/or kV adjustment per patient size (includes targeted exams where dose is matched to clinical indication); or iterative reconstruction. COMPARISON: CT head wo con* [id number] 04/16/2020 8:20 AM RADIATION DOSE METRICS: Total DLP (mGy-cm): 1075.28 FINDINGS: Brain: There is diffuse cerebral atrophy present, consistent with this patient's age. No evidence for acute intracranial hemorrhage.Periventricular and subcortical white matter low densities are present which at this age likely represent microvascular ischemic change. Cerebral ventricles: No ventriculomegaly. Paranasal sinuses: Visualized sinuses are unremarkable. No fluid levels. Mastoid air cells: Visualized mastoid air cells are well aerated. Bones/joints: Unremarkable. No acute fracture. Soft tissues: Unremarkable. Other findings: No evidence for large acute ischemic infarction. Please note acute ischemia can be occult by head CT. CT/CT head wo con* [id number] IMPRESSION: There are senescent changes of the brain as described above. No evidence for large acute ischemic infarction or acute intracranial injury.
--- NOTE | 2022-01-29 11:43 | CTR_ITS ---
PROCEDURE INFORMATION: Exam: CT Cervical Spine Without Contrast Exam date and time: 01/29/2022 12:29 PM Age: 81 years old Clinical indication: Injury or trauma; Fall; Blunt trauma TECHNIQUE: Imaging protocol: Computed tomography of the cervical spine without contrast. Radiation optimization: All CT scans at this facility use at least one of these dose optimization techniques: automated exposure control; mA and/or kV adjustment per patient size (includes targeted exams where dose is matched to clinical indication); or iterative reconstruction. COMPARISON: CT cervical spin wo con* [id number] 01/12/2022 2:14 PM RADIATION DOSE METRICS: Total DLP (mGy-cm): 166.67 FINDINGS: Bones/joints: Grade 1 degenerative anterolisthesis of C3 on C4 and of C6 on C7. Discs/Spinal canal/Neural foramina: There are degenerative changes throughout the visualized spine including marginal osteophyte formations, endplate degenerative changes, and facet arthropathy. Multilevel disc space narrowing. There are multilevel broad-based disc osteophyte complexes which indent the anterior thecal sac and result in varying degrees of bilateral neuroforamina narrowing. Lungs: Lung apices are normal. Soft tissues: There are benign-appearing soft tissue calcifications. CT/CT cervical spin wo con* [id number] IMPRESSION: There are degenerative changes as described above. No evidence for acute fracture.
[2022-01-29] MEDS: sodium chloride 0.9% 1,000 ML 999 ML IV (12:11)
[2022-01-29 12:13] LABS: Glucose Point of Care 163 mg/dL (70-110)
[2022-01-29 12:19] LABS: Mean Corpuscular HGB Conc 31.9 g/dL (30.0-36.0); Mean Corpuscular Hemoglobin 31.5 pg (28.0-34.0); Mean Corpuscular Volume 98.8 fl (80-94); Mean Platelet Volume 10.4 fL (7.4-10.4); Platelet Count 135 10^3/cmm (130-400); Red Blood Count 1.62 10^6/uL (4.1-5.3); Red Cell Distribution Width 18.6 % (12.1-15.1); White Blood Count 10.2 10^3/uL (4.0-10.0)
[2022-01-29 12:31] LABS: Hemoglobin 5.1 g/dL (11.7-16.6)
[2022-01-29 12:37] LABS: D Dimer 9.59 ug/mIFEU (0-0.59)
--- NOTE | 2022-01-29 12:38 | CTR_ITS ---
PROCEDURE INFORMATION: Exam: CTA Chest With Contrast Exam date and time: 01/29/2022 2:11 PM Age: 81 years old Clinical indication: Injury or trauma; Fall; Generalized; Blunt trauma (contusions or hematomas); Additional info: Syncope, elevated ddimer, trauma TECHNIQUE: Imaging protocol: Computed tomographic angiography of the chest with contrast. 3D rendering (Not supervised by radiologist): MIP and/or 3D reconstructed images were created by the technologist. Radiation optimization: All CT scans at this facility use at least one of these dose optimization techniques: automated exposure control; mA and/or kV adjustment per patient size (includes targeted exams where dose is matched to clinical indication); or iterative reconstruction. Contrast material: OMNI 350; Contrast volume: 95 ml; Contrast route: INTRAVENOUS (IV); COMPARISON: CT angio chest PE protcl [id number] 01/12/2022 4:53 AM RADIATION DOSE METRICS: Total DLP (mGy-cm): 1210.34 FINDINGS: Tubes, catheters and devices: [id number] catheter tip terminates in the right atrium, also seen on the prior study. Pulmonary arteries: Normal. No pulmonary emboli. Aorta: Unremarkable. No aortic aneurysm. No aortic dissection. Lungs: There are small bulla at the lung apices. Pleural spaces: Unremarkable. No pneumothorax. No pleural effusion. Heart: Multivessel atherosclerotic disease which involves the coronary arteries. Lymph nodes: Unremarkable. No enlarged lymph nodes. Bones/joints: Destructive changes at the posterior aspect of the left 8th rib are unchanged from the prior study. There are degenerative changes in the visualized spine. Soft tissues: Unremarkable. PROCEDURE INFORMATION: Exam: CT Abdomen And Pelvis With Contrast Exam date and time: 01/29/2022 2:11 PM Age: 81 years old Clinical indication: Injury or trauma; Fall; Generalized; Blunt trauma (contusions or hematomas); Additional info: Syncope, elevated ddimer, trauma TECHNIQUE: Imaging protocol: Computed tomography of the abdomen and pelvis with contrast. Radiation optimization: All CT scans at this facility use at least one of these dose optimization techniques: automated exposure control; mA and/or kV adjustment per patient size (includes targeted exams where dose is matched to clinical indication); or iterative reconstruction. Contrast material: OMNI 350; Contrast volume: 95 ml; Contrast route: INTRAVENOUS (IV); COMPARISON: CT abdomen pelvis w con* [id number] 01/08/2022 5:54 AM RADIATION DOSE METRICS: Total DLP (mGy-cm): 1210.34 FINDINGS: Heart: Multivessel atherosclerotic disease which involves the coronary arteries. Liver: There are sub cm well-circumscribed low-density hepatic lesions with benign features, unchanged from the prior exam. Follow-up is not necessary for these lesions. Gallbladder and bile ducts: Normal. No calcified stones. No ductal dilation. Pancreas: Normal. No ductal dilation. Spleen: Normal. No splenomegaly. Adrenal glands: Normal. No mass. Kidneys and ureters: There are cysts with benign features in the right kidney the larger of which measures 21 mm, stable from the prior study. Follow-up is not necessary. Stomach and bowel: Colonic constipation is present. Appendix: No evidence of appendicitis. Intraperitoneal space: Unremarkable. No free air. No significant fluid collection. Vasculature: Unremarkable. No abdominal aortic aneurysm. Lymph nodes: Unremarkable. No enlarged lymph nodes. Urinary bladder: Calculi along the posterior bladder wall are unchanged from the prior study. There is a 3 mm calculus in the bladder adjacent to the left UVJ and a 2 mm calculus in the bladder adjacent to the right UVJ which were not seen on the prior study. No evidence for hydronephrosis or hydroureter. Bladder wall appears to be somewhat thickened. There is a Robbins catheter and air in the bladder. Reproductive: Unremarkable as visualized. Bones/joints: Lytic lesion involving the right iliac bone measures 4.2 x 3.2 cm in AP/transverse dimensions, similar to the prior study. There are mixed lucent/sclerotic densities in multiple lower thoracic/lumbar vertebra as well, similar to the prior study. There are degenerative changes in the visualized spine. Broad-based disc osteophyte complexes at the L4-L5 and L5-S1 level contribute to bilateral neural foraminal narrowing. Soft tissues: Unremarkable. CT/CT angio chest w abd pel w con IMPRESSION: Destructive changes at the posterior aspect of the left 8th rib are unchanged from the prior study. There are degenerative changes in the visualized spine. IMPRESSION: 1. Stable lytic lesion involving the right iliac bone. There are mixed lucent/sclerotic densities in multiple lower thoracic/lumbar vertebra as well, similar to the prior study. Findings raise concern for osseous metastatic disease. 2. There is a 3 mm calculus in the bladder adjacent to the left UVJ and a 2 mm calculus in the bladder adjacent to the right UVJ which were not seen on the prior study. No evidence for hydronephrosis or hydroureter. 3. Colonic constipation is present. 4. The bladder wall appears somewhat thickened. This is nonspecific and may represent bladder outlet obstruction, inflammation or infection. Neoplastic process is included in the differential.
[2022-01-29 12:49] LABS: Slide Review Slide Review Perform
[2022-01-29 12:51] LABS: NT Pro B Type Natriuretic Pept 687 pg/mL (0-450); Procalcitonin 0.14 ng/mL (0-0.5); Thyroid Stimulating Hormone 7.46 uIU/mL (0.27-4.20)
[2022-01-29 12:56] LABS: Absolute Segmented Neutrophil 8.2 10/cmm (1.6-7.1); Band Neutrophils Absolute 1.1 10^3/cmm (0.0-1.2); Corrected White Blood Count 9.6 10^3/cmm (4.8-10.8); Monocytes Absolute 0.4 10^3/cmm (0.1-0.6); Segmented Neutrophils 80 %; Total Cells Counted 100 (0-100)
[2022-01-29 12:57] LABS: Eosinophils 0 %; Polychromasia Trace
[2022-01-29 12:58] LABS: Absolute Neutrophil 9.3 10^3/cmm (1.4-6.5); Anisocytosis 1+; Macrocytosis Trace; Microcytosis Trace; Platelet Estimate Normal (Normal)
[2022-01-29 13:02] LABS: Alanine Aminotransferase 18 U/L (0-41); Albumin Level 2.8 g/dL (3.5-5.2); Alkaline Phosphatase 85 IU/L (40-130); Anion Gap 19.1 (5-19); Aspartate Amino Transferase 16 U/L (0-40); Blood Urea Nitrogen 41 mg/dL (8-23); Calcium 8.9 mg/dL (8.5-10.5); Carbon Dioxide 20 mmol/L (22-29); Chloride 103 mmol/L (98-107); Creatine Phosphokinase 28 U/L (39-308); Globulin 1.5 g/dL (1.3-4.6); Glucose 152 mg/dL (65-115); Magnesium 1.8 mg/dL (1.7-2.3); Osmolality Calculated 299 mOsm/kg (285-295); Potassium 4.1 mmol/L (3.5-5.1); Sodium 138 mmol/L (136-145); Total Bilirubin 0.3 mg/dL (0.15-1.2); Total Protein 4.3 g/dL (6.6-8.7)
[2022-01-29 13:08] LABS: Lactate (Lactic Acid level) 4.3 mmol/L (0.5-2.2)
[2022-01-29 13:09] LABS: Lymphocytes 0 %
[2022-01-29 13:26] LABS: Free T4 Free Thyroxine 1.16 ng/dL (0.82-1.77)
[2022-01-29] MEDS: pantoprazole 40 mg SDV 80 MG IVP (14:04)
[2022-01-29] MEDS: fentaNYL 50 mcg/mL INJ 2mL 25 MCG IVP (14:04)
--- NOTE | 2022-01-29 16:19 | PM.HP ---
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 He returns to ER today after collapse, syncope, tremors, generally weak, feeling cold, in ER on presentation tachycardia, heart rate 107, hemoglobin 5.1. Stool positive for occult blood. Received 2000 mL fluid bolus. 80 mg IV Protonix. Agreeable to RBC transfusion with 2 units requested. And discussion of CODE STATUS, in case of cardiac arrest he would not want CPR. In case of temporary respiratory failure he would be okay with transient intubation and MV support. Review of Systems Const: Reports: fatigue; Denies: fever(s), chills, body aches or malaise Eyes: Denies: change in vision, eye discomfort or eye redness ENMT: Denies: throat pain, oral sores or ear or mastoid pain Card: Reports: edema and syncope; Denies: chest pain Resp: Denies: dyspnea, productive cough, change in phlegm color or hemoptysis GI: Reports: vomiting (1 episode this morning at care home) and constipation; Denies: abdominal pain, nausea, diarrhea, hematochezia or melena : Denies: flank pain, difficulty urinating, urinary frequency or hematuria Musc: Denies: back pain, joint swelling or joint redness Skin/Breast: Denies: rash or new lesions Neuro: Denies: headache(s), numbness in extremities, weakness in extremities, dizziness, confusion or seizure-like activity Endo: Denies: polyuria or polydipsia Mauricio/Lymph: Denies: easy bleeding or tender lymph nodes All/Imm: Denies: urticaria or tongue swelling Medications/Allergies Home Medications Medication Instructions Recorded Confirmed Last Taken Type tamsulosin 0.4 mg capsule 0.4 mg PO QPM 07/01/19 01/29/22 01/10/22 History Sole Supports #1 ea 07/15/19 01/29/22 Unknown Rx carbon fiber #1 ea 11/27/19 01/29/22 Unknown Rx Gel toe sleeve, right hallux #1 ea 12/12/19 01/29/22 Unknown Rx acetaminophen 500 mg tablet 1,000 mg PO Q4H PRN Pain 12/10/21 01/29/22 01/11/22 15:00 History 1000 mg ibuprofen-diphenhydramine citrate 1 tab PO BEDTIME 12/10/21 01/29/22 01/11/22 00:00 History 200 mg-38 mg tablet (Advil PM) prochlorperazine maleate 10 mg 10 mg PO Q4H PRN Mild Nausea #30 12/29/21 01/29/22 Unknown Rx tablet (Compazine) tabs folic acid 1 mg tablet 1 mg PO QPM #90 tabs 01/04/22 01/29/22 01/10/22 Rx allopurinol 300 mg tablet 300 mg PO QAM 01/11/22 01/29/22 01/11/22 06:30 History dexamethasone 4 mg tablet 2 mg PO QAM 01/11/22 01/29/22 01/11/22 History fluconazole 100 mg tablet 100 mg PO QAM 01/11/22 01/29/22 01/11/22 06:30 History (Diflucan) sennosides 8.6 mg-docusate sodium 2 tab PO BID 01/11/22 01/29/22 01/11/22 06:30 History 50 mg tablet (Senokot-S) sulfamethoxazole 800 1 tab PO .ON MON,WED,Mon01/11/22 01/29/22 Unknown History mg-trimethoprim 160 mg tablet (Bactrim DS) valacyclovir 500 mg tablet 500 mg PO QAM 01/11/22 01/29/22 01/11/22 06:30 History see pharmacy comment pantoprazole 40 mg tablet,delayed 40 mg PO BID #14 tabs 01/22/22 01/29/22 01/11/22 14:30 Rx release (Protonix) lactulose 10 gram/15 mL oral 15 ml PO Q12H PRN Constipation 01/29/22 01/29/22 Unknown History solution lorazepam 1 mg tablet 0.5 mg PO Q6H PRN Severe Nausea 01/29/22 01/29/22 Unknown History Allergies Allergy/AdvReac Type Severity Reaction Status Date / Time meperidine [From Demerol] Allergy Mild ADR/ALGY-Hy Verified 01/10/22 08:46 potension Opioids - Morphine Analogues Allergy Mild ADR/ALGY-Hy Verified 01/10/22 08:46 potension oxycodone [From Percocet] Allergy Mild ADR/ALGY-Hy Verified 01/10/22 08:46 potension PFSH Acute PFSH: Medical History BPH (benign prostatic hyperplasia) 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 Otoole Protein-energy malnutrition Surgical History History of cataract surgery Bilateral cataract excisions Hx of repair of rotator cuff S/P arthroscopic surgery of left knee S/P lymph node biopsy (11/17/21) Core needle biopsy of left supraclavicular lymph node Status post surgical removal of malignant neoplasm of skin Family History Father Cancer Brother Diabetes Denies family history of CAD (coronary artery disease) Clotting disorder Dementia Hyperlipidemia Psychiatric illness Chronic kidney disease (CKD) Suicide Anesthesia complication Bleeding disorder Family history of premature coronary artery disease Lung disease Hypertension Stroke Social History (Updated 01/29/22 @ 16:29 by Chema Espinoza MD) Smoking and tobacco status: former smoker Quit status (tobacco): has quit using tobacco Second hand smoke exposure: Yes Smoking risk assessment/counseling performed?: Yes Alcohol intake: never Desire information about alcohol rehabilitation?: No Counseling given: No Desire information about substance/drug rehabilitation?: No Counseling given: No Adopted: No Caregiver/support person: No Lives independently: Yes Household members: spouse Housing: Other Details: Rehabbing at [facility] Marital status: Current occupational status: retired Current occupational exposures/hazards: No History of recent travel: No Current gender identity: Male Vitals/I&O/Wt Last Vital Signs Temp 97.9 F 01/29/22 11:28 Pulse 92 01/29/22 15:44 Resp 15 01/29/22 15:44 BP 122/45 01/29/22 15:44 Pulse Ox 100 01/29/22 15:44 O2 Del Method 01/29/22 15:44 Weight last 48 hrs Weight 85.275 kg Physical Exam Narrative: Accompanied by his Const: COMMON NORMALS: patient oriented x3 and alert GENERAL APPEARANCE: cooperative and frail appearing ORIENTATION/CONSCIOUSNESS: Yes awake OTHER: Pale HENMT: COMMON NORMALS: oropharynx normal Neck/C-Spine: COMMON NORMALS: no JVD Resp: COMMON NORMALS: normal respiratory effort and clear to auscultation bilaterally AUSCULTATION: clear to auscultation bilaterally Cardio: COMMON NORMALS: no JVD, regular rhythm, S1 normal heart sound present, S2 normal heart sound present and No murmurs present (Cardio) RHYTHM: regular rhythm HEART SOUNDS: S1 normal heart sound present and S2 normal heart sound present GI: COMMON NORMALS: Normal to inspection, nondistended, normoactive bowel sounds present, Soft to palpation and non-tender PALPATION: Yes Soft to palpation : OTHER: Robbins Extremity: COMMON NORMALS: no joint enlargement and no pedal edema Neuro: COMMON NORMALS: patient oriented x3 and moves all extremities SENSORIUM/ORIENTATION: Yes alert Data : 01/29/22 12:05 01/29/22 12:05 Micro: Microbiology 01/29/22 12:05 Blood Culture - Preliminary Blood SPECIMEN COLLECTED 01/29/22 12:00 Blood Culture - Preliminary Blood SPECIMEN COLLECTED A&P Assessment and plan (1) GI bleed: Received 1 L IV fluid. Monitor vital signs. Tachycardia with improvement. Pending 2 units RBC transfusion. Suspect likely GI bleed with positive Hemoccult, nausea and episode of vomiting this morning. D-dimer is abnormal, will additionally check LDH, haptoglobin, reticulocyte. T bili is normal. Received 80 mg IV Protonix. Continue twice daily. Stop NSAID. May not be able to discontinue steroid due to prolonged course, acute illness. Surgical consultation appreciated. Status: Acute (2) Acute on chronic blood loss anemia: As above Status: Acute (3) Syncope: Likely due to symptomatic acute on chronic anemia, hypovolemia. Status post 1 L fluid bolus. Pending blood transfusion. Bedrest for now. Status: Acute (4) Observed seizure-like activity: Suspect related to syncopal event. Seizure precautions. Monitor for any recurrence of episodes. In case of recurrence, consider additional work-up. Head CT with senescent changes. Status: Acute (5) Acidosis, lactic: Suspect due to acute on chronic anemia, hypovolemia. Status: Acute (6) Weakness: Has been undergoing rehabilitation at [facility]. However, his requests if possible to look at options in town. Requested CM consultation. Status: Acute (7) Robbins catheter in place prior to arrival: Robbins catheter placed for urinary retention on 01/12. Noted mild leukocytosis 10.2, neutrophilia. Sinus tachycardia on presentation likely due to hypovolemia and acute anemia, however, will replace Robbins, collect UA. Status: Acute (8) Urinary retention: Reports history of BPH, used to be on tamsulosin in the past. Continue tamsulosin. For now replace Robbins due to bedrest, acute anemia, hypokalemia, for accurate I&O. Consider voiding trial prior to discharge. Status: Acute (9) Bladder wall thickening: Incidentally noted on CT. Nonspecific, possibly bladder outlet obstruction, inflammation or infection. Neoplastic process not excluded. Did have urinary retention for which Robbins had to be placed on 01/12. Noted mild leukocytosis 10.2, neutrophilia. Sinus tachycardia on presentation likely due to hypovolemia and acute anemia, however, will replace Robbins, collect UA. Additionally follow-up outpatient. Status: Acute (10) BPH (benign prostatic hyperplasia): Status: Acute (11) D-dimer, elevated: No obvious PE on CT chest with contrast. Assess lower extremity duplex. Suspect possibly related to bleeding, additionally assess LDH, haptoglobin, reticulocyte's. Assess DIC panel. Status: Acute Plan TSH level elevated: Normal free T4. Possibly subclinical hypothyroidism. Follow-up on outpatient basis. BL LE edema: Elevated D-dimer. Assess venous duplex. Nephrolithiasis constantly noted on CT abdomen pelvis with 3 mm stone in the bladder adjacent to left UVJ and a 2 mm abscess in the bladder adjacent to the right UVJ. No evidence of hydronephrosis or hydroureter. Constipation Decub History of hypercalcemia DLBCL: Continue Decadron 2 mg for now, continue Bactrim, valacyclovir. Destructive changes noted in the eighth rib unchanged from prior on CT chest. Stable lytic lesion in the right iliac bone and CT abdomen pelvis. Port-A-Cath in place Attestations Medical Necessity Statement*: Admission of over 2 midnights is anticipated for assessment and plan of acute on chronic anemia, upper GI bleed in a gentleman with underlying DLBCL, chronic anemia, additional coronary disease as above. Coding Level of Care Code Acute Women'S Studies Lecturer for g Fwd Diagnoses GI bleed K92.2 Acute on chronic blood loss anemia D62 Syncope R55 Observed seizure-like activity R56.9 Acidosis, lactic E87.2 Weakness R53.[address] prior to arrival Z97.8 Urinary retention R33.9 Bladder wall thickening N32.89 BPH (benign prostatic hyperplasia) N40.0 D-dimer, elevated R79.89
--- NOTE | 2022-01-29 16:34 | USR_ITS ---
PROCEDURE INFORMATION: Exam: US Duplex Lower Extremity Veins, Bilateral Exam date and time: 01/29/2022 4:36 PM Age: 81 years old Clinical indication: Swelling (edema) of limb; Lower extremity, bilateral; Additional info: Edema, elev dimer TECHNIQUE: Imaging protocol: Real-time Duplex ultrasound of the bilateral extremities with 2-D nash scale, color Doppler flow and spectral waveform analysis with image documentation. Complete exam focused on the bilateral lower extremity veins. COMPARISON: CT foot RT wo con* [id number] 08/04/2020 8:11 PM FINDINGS: Right deep veins: Unremarkable. The common femoral, femoral, proximal profunda femoral and popliteal veins are patent without thrombus. Normal Doppler waveforms. Normal compressibility and/or augmentation response. Right superficial veins: Saphenofemoral junction is patent without thrombus. Left deep veins: Unremarkable. The common femoral, femoral, proximal profunda femoral and popliteal veins are patent without thrombus. Normal Doppler waveforms. Normal compressibility and/or augmentation response. Left superficial veins: Saphenofemoral junction is patent without thrombus. Soft tissues: Unremarkable. US/[place] [id number] IMPRESSION: No evidence of deep vein thrombosis.
[2022-01-29 17:10] LABS: Lactate Dehydrogenase 623 U/L (135-225)
[2022-01-29 17:14] LABS: Retic Production Index 2.56; Reticulocyte % 6.4 % (0.5-2.0)
[2022-01-29 17:56] LABS: Hemoglobin 4.4 g/dL (11.7-16.6)
[2022-01-29] MEDS: tamsulosin 0.4 mg Capsule PO (18:07)
[2022-01-29] MEDS: folic acid 1 mg Tablet PO (18:07)
[2022-01-29] MEDS: sennosides-docusate Tablet 2 TAB PO (18:07)
[2022-01-29 18:08] LABS: INR 1.35 (0.8-1.2); Partial Thromboplastin Time 24.7 SECONDS (23.9-36.7)
[2022-01-29 18:18] LABS: D Dimer 5.71 ug/mIFEU (0-0.59)
[2022-01-29] MEDS: iohexol 350 mg/mL 100 mL Btl IV (18:42)
[2022-01-29 19:45] LABS: Fibrinogen 133 mg/dL (174-498)
--- NOTE | 2022-01-29 20:50 | PC.NURSE ---
PRBC'S Starting first unit of PRBC's. Will monitor closely
[2022-01-29] MEDS: LORazepam 0.5 mg Tablet PO (21:16)
[2022-01-29 23:04] LABS: Add Urine Microscopic? NO; Charge for UA Resulting for Rev
[2022-01-29 23:17] LABS: Urine Color Yellow (Yellow)
[2022-01-29 23:18] LABS: Bilirubin Urine Neg (Negative); Blood Urine Neg (Negative); Glucose Urine UA Norm (Normal); Ketones Urine Negative (Negative); Leukocyte Esterase Urine Negative (Negative); Nitrate Urine Negative (Negative); Protein Urine Neg (Negative); Urine Appearance Clear (CLEAR); Urobilinogen Urine Neg (Negative); pH Urine 5 (5-7)
--- NOTE | 2022-01-29 23:54 | PC.NURSE ---
TRANSFUSION First unit of PRBC's finished. Ed well
[2022-01-30] VITALS (11 sets, daily range): BP systolic 101–121; BP diastolic 49–73; PULSE 66–90; RESP 15–18; TEMP 36.2–36.8; O2SAT 94–100
[2022-01-30] MEDS: sodium chloride 0.9% (100 ml) 100 ML 125 ML ×2 (00:12→04:26)
--- NOTE | 2022-01-30 00:55 | PC.NURSE ---
PRBC'S Second unit of PRBC's has been started by RN. Will monitor closely
[2022-01-30] MEDS: pantoprazole 40 mg SDV 80 MG IVP ×2 (02:27→13:28)
--- NOTE | 2022-01-30 04:14 | PC.NURSE ---
TRANSFUSION Second unit of PRBC's infused without any difficulties
[2022-01-30] MEDS: dexamethasone 4 mg Tablet 2 MG PO (06:09)
[2022-01-30] MEDS: fluconazole 100 mg Tablet PO (06:09)
[2022-01-30] MEDS: allopurinol 300 mg Tablet PO (06:10)
[2022-01-30] MEDS: valACYclovir 1,000 mg Tablet 500 MG PO (06:10)
[2022-01-30 07:08] LABS: Basophils % 0.3 %; Eosinophils % 0.1 %; Hematocrit 21.2 % (42.0-52.0); Hemoglobin 7.1 g/dL (11.7-16.6); Lymphocytes # 0.1 10^3/uL (0.8-4.8); Lymphocytes % 1.4 %; Mean Corpuscular HGB Conc 33.5 g/dL (30.0-36.0); Mean Corpuscular Hemoglobin 31.7 pg (28.0-34.0); Mean Corpuscular Volume 94.6 fl (80-94); Mean Platelet Volume 10.7 fL (7.4-10.4); Monocytes # 0.5 10^3/uL (0.2-0.9); Monocytes % 7.4 %; Neutrophils # 5.59 10^3/uL (1.8-7.7); Nucleated Red Blood Cells # 0.5 /100WBC; Nucleated Red Blood Cells % 6.3 %; Platelet Count 111 10^3/cmm (130-400); Red Blood Count 2.24 10^6/uL (4.1-5.3); Red Cell Distribution Width 16.9 % (12.1-15.1); White Blood Count 7.2 10^3/uL (4.0-10.0)
[2022-01-30 07:44] LABS: Alanine Aminotransferase 13 U/L (0-41); Albumin Level 2.7 g/dL (3.5-5.2); Alkaline Phosphatase 69 IU/L (40-130); Aspartate Amino Transferase 16 U/L (0-40); Blood Urea Nitrogen 32 mg/dL (8-23); Carbon Dioxide 22 mmol/L (22-29); Chloride 106 mmol/L (98-107); Glucose 104 mg/dL (65-115); Osmolality Calculated 287 mOsm/kg (285-295); Sodium 135 mmol/L (136-145); Total Bilirubin 0.7 mg/dL (0.15-1.2); Total Protein 3.7 g/dL (6.6-8.7)
[2022-01-30 07:54] LABS: Neutrophils % 90.8 %
[2022-01-30 07:55] LABS: Slide Review Slide Review Perform
[2022-01-30] MEDS: sennosides-docusate Tablet 2 TAB PO ×2 (08:01→18:18)
--- NOTE | 2022-01-30 09:38 | P.CONIM_ITS ---
Providers/Reason For Consult Consulting Physician/Specialty*: General Surgery Dr. Hahn Reason for Consult*: anemia Requesting Physician: Hospitalist service Attending Physician: Chema Espinoza Primary Care Provider: Robert Floyd MD History of Present Illness History of Present Illness Kendall Camejo is a 81 year old male who presents to the ER with weakness, feeling cold tremors and collapse. Patient is noted to be tachycardic, normotensive but his hemoglobin was 5.1. Patient therefore he received 2 units PRBC. He was noted to have dark stools and FOBT was positive. Patient denies any abdominal pain, nausea, vomiting, hematemesis or melena or hematochezia. He received chemotherapy for B-cell lymphoma 3 weeks ago. Patient had a colonoscopy a long time ago. His hemoglobin is up to 7.1 after transfusion. He was recently hospitalized with acute on chronic anemia and received 1 unit PRBC about a week ago Review of Systems General: Reports: 10 or more systems reviewed and unremarkable except in HPI and below Medications/Allergies Home Medications Medication Instructions Recorded Confirmed Last Taken Type tamsulosin 0.4 mg capsule 0.4 mg PO QPM 07/01/19 01/29/22 01/10/22 History Sole Supports #1 ea 07/15/19 01/29/22 Unknown Rx carbon fiber #1 ea 11/27/19 01/29/22 Unknown Rx Gel toe sleeve, right hallux #1 ea 12/12/19 01/29/22 Unknown Rx acetaminophen 500 mg tablet 1,000 mg PO Q4H PRN Pain 12/10/21 01/29/22 01/11/22 15:00 History 1000 mg ibuprofen-diphenhydramine citrate 1 tab PO BEDTIME 12/10/21 01/29/22 01/11/22 00:00 History 200 mg-38 mg tablet (Advil PM) prochlorperazine maleate 10 mg 10 mg PO Q4H PRN Mild Nausea #30 12/29/21 01/29/22 Unknown Rx tablet (Compazine) tabs folic acid 1 mg tablet 1 mg PO QPM #90 tabs 01/04/22 01/29/22 01/10/22 Rx allopurinol 300 mg tablet 300 mg PO QAM 01/11/22 01/29/22 01/11/22 06:30 History dexamethasone 4 mg tablet 2 mg PO QAM 01/11/22 01/29/22 01/11/22 History fluconazole 100 mg tablet 100 mg PO QAM 01/11/22 01/29/22 01/11/22 06:30 History (Diflucan) sennosides 8.6 mg-docusate sodium 2 tab PO BID 01/11/22 01/29/22 01/11/22 06:30 History 50 mg tablet (Senokot-S) sulfamethoxazole 800 1 tab PO .ON MON,MON,Mon01/11/22 01/29/22 Unknown History mg-trimethoprim 160 mg tablet (Bactrim DS) valacyclovir 500 mg tablet 500 mg PO QAM 01/11/22 01/29/22 01/11/22 06:30 History see pharmacy comment pantoprazole 40 mg tablet,delayed 40 mg PO BID #14 tabs 01/22/22 01/29/22 01/11/22 14:30 Rx release (Protonix) lactulose 10 gram/15 mL oral 15 ml PO Q12H PRN Constipation 01/29/22 01/29/22 Unknown History solution lorazepam 1 mg tablet 0.5 mg PO Q6H PRN Severe Nausea 01/29/22 01/29/22 Unknown History Allergies Allergy/AdvReac Type Severity Reaction Status Date / Time meperidine [From Demerol] Allergy Mild ADR/ALGY-Hy Verified 01/10/22 08:46 potension Opioids - Morphine Analogues Allergy Mild ADR/ALGY-Hy Verified 01/10/22 08:46 potension oxycodone [From Percocet] Allergy Mild ADR/ALGY-Hy Verified 01/10/22 08:46 potension Current Medications Generic Name Dose Route Start Last Admin Trade Name Freq PRN Reason Stop Dose Admin Allopurinol 300 mg 01/30/22 06:00 01/30/22 06:10 Allopurinol 300 Mg Tablet PO 300 mg QAM REJI Administration Dexamethasone 2 mg 01/30/22 06:00 01/30/22 06:09 Dexamethasone 4 Mg Tablet PO 2 mg QAM REJI Administration Fluconazole 100 mg 01/30/22 06:00 01/30/22 06:09 Fluconazole 100 Mg Tablet PO 100 mg QAM REJI Administration Folic Acid 1 mg 01/29/22 18:00 01/29/22 18:07 Folic Acid 1 Mg Tablet PO 1 mg QPM REJI Administration Lorazepam 0.5 mg 01/29/22 16:47 01/29/22 21:16 Lorazepam 0.5 Mg Tablet PO 0.5 mg Q6H PRN Administration Severe Nausea Pantoprazole Sodium 80 mg 01/30/22 02:00 01/30/22 02:27 Pantoprazole 40 Mg Sdv IVP 80 mg Q12H REJI Administration Senna/Docusate Sodium 2 tab 01/29/22 18:00 01/30/22 08:01 Sennosides-Docusate Tablet PO 2 tab BID REJI Administration Tamsulosin HCl 0.4 mg 01/29/22 18:00 01/29/22 18:07 Tamsulosin 0.4 Mg Capsule PO 0.4 mg QPM REJI Administration Valacyclovir HCl 500 mg 01/30/22 06:00 01/30/22 06:10 Valacyclovir 1,000 Mg Tablet PO 500 mg QAM REJI Administration PFSH Acute PFSH: Medical History BPH (benign prostatic hyperplasia) 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 Otoole Protein-energy malnutrition Surgical History History of cataract surgery Bilateral cataract excisions Hx of repair of rotator cuff S/P arthroscopic surgery of left knee S/P lymph node biopsy (11/17/21) Core needle biopsy of left supraclavicular lymph node Status post surgical removal of malignant neoplasm of skin Family History Father Cancer Brother Diabetes Denies family history of CAD (coronary artery disease) Clotting disorder Dementia Hyperlipidemia Psychiatric illness Chronic kidney disease (CKD) Suicide Anesthesia complication Bleeding disorder Family history of premature coronary artery disease Lung disease Hypertension Stroke Social History (Updated 01/29/22 @ 16:29 by Chema Espinoza MD) Smoking and tobacco status: former smoker Quit status (tobacco): has quit using tobacco Second hand smoke exposure: Yes Smoking risk assessment/counseling performed?: Yes Alcohol intake: never Desire information about alcohol rehabilitation?: No Counseling given: No Desire information about substance/drug rehabilitation?: No Counseling given: No Adopted: No Caregiver/support person: No Lives independently: Yes Household members: spouse Housing: Other Details: Rehabbing at [facility] Marital status: Current occupational status: retired Current occupational exposures/hazards: No History of recent travel: No Current gender identity: Male Vitals/I&O/Wt Last Vital Signs Temp 98 F 01/30/22 08:00 Pulse 76 01/30/22 08:00 Resp 16 01/30/22 08:00 BP 110/49 01/30/22 08:00 Pulse Ox 97 01/30/22 08:00 O2 Del Method 01/30/22 04:17 01/29/22 01/30/22 01/30/22 22:59 06:59 14:59 Intake Total 0 / 800 800 / 800 Output Total 1550 / 1550 Balance 0 / -750 -750 / -750 Weight last 48 hrs Weight 192 lb 3.2 oz Weight 208 lb Weight 188 lb Physical Exam Narrative: HEENT: Normocephalic Eye: Sclera /conjunctiva normal Abdomen: Soft to palpation Neurological: Oriented to place person and time Skin: Intact, no lesions appreciated on gross exam Data : 01/30/22 10:00 01/30/22 06:30 Micro: Microbiology 01/29/22 12:05 Blood Culture - Preliminary Blood SPECIMEN COLLECTED 01/29/22 12:00 Blood Culture - Preliminary Blood SPECIMEN COLLECTED A&P Assessment and plan (1) GI bleed: 81-year-old male who presents with generalized weakness, fatigue and was noted to have a hemoglobin of 5. His hemoglobin is up to 7 after 2 units PRBC. He denies any chest pain or abdominal pain today. Clear liquid diet today N.p.o. after midnight GoLytely starting at noon Plan for EGD/colonoscopy under [facility] tomorrow Procedure, risks, benefits and alternatives have been discussed with the patient who wishes to proceed with surgery. Status: Acute Consult Attestations Medical Necessity Statement: As per attending physician Coding Level of Care Code Acute Inclusion Teacher for Chg Fwd Diagnoses GI bleed K92.2
[2022-01-30 10:28] LABS: Hemoglobin 7.6 g/dL (11.7-16.6)
[2022-01-30] MEDS: peg /e-lyte soln 4,000 mL Btl 4000 ML PO (13:29)
[2022-01-30 14:24] LABS: Hemoglobin 8.4 g/dL (11.7-16.6)
--- NOTE | 2022-01-30 14:56 | PM.PN ---
Subjective Subjective: He has started feeling better after blood transfusion. Today he is feeling little bit stronger. Denies any new complaints. He spoke with surgery and they discussed upper and lower endoscopic evaluation tomorrow. Vitals/I&O/Wt Last Vital Signs Temp 98.3 F 01/30/22 11:33 Pulse 77 01/30/22 11:33 Resp 15 01/30/22 11:33 BP 121/73 01/30/22 11:33 Pulse Ox 97 01/30/22 11:33 O2 Del Method 01/30/22 04:17 01/29/22 01/30/22 01/30/22 22:59 06:59 14:59 Intake Total 0 / 0 800 / 800 Output Total 1550 / 1550 Balance 0 / 0 -750 / -750 Weight last 48 hrs Weight 87.18 kg Weight 94.347 kg Weight 85.275 kg Physical Exam Narrative: Accompanied by family Const: COMMON NORMALS: patient oriented x3 and alert GENERAL APPEARANCE: cooperative and frail appearing ORIENTATION/CONSCIOUSNESS: Yes awake OTHER: Pale HENMT: COMMON NORMALS: oropharynx normal Neck/C-Spine: COMMON NORMALS: no JVD Resp: COMMON NORMALS: normal respiratory effort and clear to auscultation bilaterally AUSCULTATION: clear to auscultation bilaterally Cardio: COMMON NORMALS: no JVD, regular rhythm, S1 normal heart sound present, S2 normal heart sound present and No murmurs present (Cardio) RHYTHM: regular rhythm HEART SOUNDS: S1 normal heart sound present and S2 normal heart sound present GI: COMMON NORMALS: Normal to inspection, nondistended, normoactive bowel sounds present, Soft to palpation and non-tender PALPATION: Yes Soft to palpation : OTHER: Robbins Extremity: COMMON NORMALS: no joint enlargement GENERAL: Yes edema (Trace) Neuro: COMMON NORMALS: patient oriented x3 and moves all extremities SENSORIUM/ORIENTATION: Yes alert Data : 01/30/22 14:05 01/30/22 06:30 Micro: Microbiology 01/29/22 12:05 Blood Culture - Preliminary Blood NEGATIVE TO DATE 01/29/22 12:00 Blood Culture - Preliminary Blood NEGATIVE TO DATE A&P Assessment and plan (1) GI bleed: Responded well to RBC transfusion. Plans for upper and lower endoscopy tomorrow. LDH with elevation, but likely due to DLBCL. Haptoglobin not low. Good reticulocyte response. D-dimer elevation with some fibrin regulation products. We will follow-up DIC panel, although does not appear to have any persistent bleeding. Doubt DIC. Follow-up hemoglobin. Additional 1 unit RBC is on hold in case needed. However, hemoglobin now appears to be rising. Suspect likely GI bleed with positive Hemoccult, nausea and episode of vomiting this morning. 80 mg IV Protonix twice daily. Stop NSAID. May not be able to discontinue steroid due to prolonged course, acute illness. Surgical consultation appreciated. Status: Acute (2) Acute on chronic blood loss anemia: As above Status: Acute (3) Syncope: Likely due to symptomatic acute on chronic anemia, hypovolemia. Status post 1 L fluid bolus. 2 units of blood transfusion. Feeling better. Up to bedside commode with assist. Status: Acute (4) Observed seizure-like activity: Suspect related to syncopal event. Seizure precautions. Monitor for any recurrence of episodes. In case of recurrence, consider additional work-up. Head CT with senescent changes. Status: Acute (5) Acidosis, lactic: Resolving with improving bicarb and anion gap normalized. Suspect due to acute on chronic anemia, hypovolemia. Status: Acute (6) Weakness: Improved. His requested going to a rehab place in [facility] if possible, alternatively she is wondering if he could go home after he is done with his hospitalization here. Please obtain additional reassessment by PT once acute blood loss anemia is stable. Has been undergoing rehabilitation at [facility] until now. Requested CM consultation. Status: Acute (7) Robbins catheter in place prior to arrival: Robbins catheter placed for urinary retention on 01/12. Noted mild leukocytosis 10.2, neutrophilia. Sinus tachycardia on presentation likely due to hypovolemia and acute anemia. Requested for replacement. UA collected and not suggestive of UTI. Has been on tamsulosin. Consider voiding trial prior to discharge. Urinary bladder stones: Follow-up with urology. Status: Acute (8) Urinary retention: Reports history of BPH, used to be on tamsulosin in the past. Continue tamsulosin. For now replace Robbins due to bedrest, acute anemia, hypokalemia, for accurate I&O. Consider voiding trial prior to discharge. Status: Acute (9) Bladder wall thickening: Incidentally noted on CT. Nonspecific, possibly bladder outlet obstruction, inflammation or infection. Neoplastic process not excluded. Did have urinary retention for which Robbins had to be placed on 01/12. Noted mild leukocytosis 10.2, neutrophilia. Sinus tachycardia on presentation likely due to hypovolemia and acute anemia. Requested Robbins catheter to be replaced. UA collected and unremarkable. Additionally follow-up outpatient. Status: Acute (10) BPH (benign prostatic hyperplasia): Status: Acute (11) D-dimer, elevated: Improving. Suspect secondary to bleeding. No obvious PE on CT chest with contrast. Assess lower extremity duplex. Repeat DIC panel. Status: Acute Plan TSH level elevated: Normal free T4. Possibly subclinical hypothyroidism. Follow-up on outpatient basis. BL LE edema: Elevated D-dimer. Normal venous duplex. Nephrolithiasis constantly noted on CT abdomen pelvis with 3 mm stone in the bladder adjacent to left UVJ and a 2 mm abscess in the bladder adjacent to the right UVJ. No evidence of hydronephrosis or hydroureter. Follow-up with urology. Constipation Decub History of hypercalcemia DLBCL: Continue Decadron 2 mg for now, continue Bactrim, valacyclovir. Destructive changes noted in the eighth rib unchanged from prior on CT chest. Stable lytic lesion in the right iliac bone and CT abdomen pelvis. Port-A-Cath in place Attestations Medical Necessity Statement*: Continue admission for assessment management of acute blood loss anemia, GI bleeding. 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
[2022-01-30] MEDS: tamsulosin 0.4 mg Capsule PO (18:17)
[2022-01-30] MEDS: folic acid 1 mg Tablet PO (18:18)
[2022-01-30] MEDS: ondansetron 2 mg/ML SDV 2 mL 4 MG IVP (21:49)
[2022-01-31] VITALS (12 sets, daily range): BP systolic 93–121; BP diastolic 55–68; PULSE 68–83; RESP 14–18; TEMP 36.2–36.8; O2SAT 94–100
[2022-01-31] MEDS: pantoprazole 40 mg SDV 80 MG IVP (02:14)
[2022-01-31 05:34] LABS: Basophils % 0.2 %; Lymphocytes # 0.1 10^3/uL (0.8-4.8); Lymphocytes % 2.3 %; Mean Corpuscular HGB Conc 35.3 g/dL (30.0-36.0); Mean Corpuscular Hemoglobin 31.7 pg (28.0-34.0); Mean Corpuscular Volume 89.8 fl (80-94); Mean Platelet Volume 10.5 fL (7.4-10.4); Monocytes # 0.4 10^3/uL (0.2-0.9); Monocytes % 6.3 %; Neutrophils # 4.98 10^3/uL (1.8-7.7); Neutrophils % 80.8 %; Nucleated Red Blood Cells # 0.3 /100WBC; Nucleated Red Blood Cells % 5.2 %; Platelet Count 111 10^3/cmm (130-400); Red Blood Count 2.05 10^6/uL (4.1-5.3); Red Cell Distribution Width 17.2 % (12.1-15.1); White Blood Count 6.2 10^3/uL (4.0-10.0)
[2022-01-31 05:53] LABS: Anion Gap 12.4 (5-19); Blood Urea Nitrogen 25 mg/dL (8-23); Calcium 7.6 mg/dL (8.5-10.5); Carbon Dioxide 25 mmol/L (22-29); Chloride 105 mmol/L (98-107); Glucose 107 mg/dL (65-115); Osmolality Calculated 293 mOsm/kg (285-295); Potassium 3.4 mmol/L (3.5-5.1); Sodium 139 mmol/L (136-145)
[2022-01-31 06:20] LABS: Hematocrit 18.4 % (42.0-52.0); Hemoglobin 6.5 g/dL (11.7-16.6)
[2022-01-31 06:21] LABS: Slide Review Slide Review Perform
--- NOTE | 2022-01-31 08:50 | PM.PN ---
Subjective Subjective: Patient did have dark stools overnight and his hemoglobin is down to 6.5 again Medications: Reviewed: Yes Vitals/I&O/Wt Last Vital Signs Temp 97.8 F 01/31/22 04:00 Pulse 70 01/31/22 04:00 Resp 18 01/31/22 04:00 BP 111/66 01/31/22 04:00 Pulse Ox 98 01/31/22 04:00 O2 Del Method 01/30/22 04:17 01/30/22 01/31/22 01/31/22 22:59 06:59 14:59 Output Total 0 / 0 0 / 0 1050 / 1050 Balance 0 / 240 0 / 240 -1050 / -1050 Weight last 48 hrs Weight 192 lb 3.2 oz Weight 208 lb Weight 188 lb Data : 01/31/22 05:15 01/31/22 05:15 Micro: Microbiology 01/29/22 12:05 Blood Culture - Preliminary Blood Staphylococcus epidermidis 01/29/22 12:00 Blood Culture - Preliminary Blood Staphylococcus epidermidis A&P Assessment and plan (1) GI bleed: 81-year-old male who presents with generalized weakness, fatigue and was noted to have a hemoglobin of 5. His hemoglobin is up to 7 after 2 units PRBC but is down to 6.5 today. 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
[2022-01-31] MEDS: sulfamethoxazole-trimeth DS 160-800 mg Tablet 1 TAB PO (10:05)
[2022-01-31] MEDS: sennosides-docusate Tablet 2 TAB PO ×2 (10:06→17:26)
--- NOTE | 2022-01-31 12:27 | PM.PN ---
Subjective Subjective: Hemoglobin down to 6.5 this morning. Getting one unit PRBC transfusion. Recheck Hb post transfusion.EGD awaited. Medications: Reviewed: Yes Vitals/I&O/Wt Last Vital Signs Temp 98.0 F 01/31/22 10:39 Pulse 82 01/31/22 10:39 Resp 17 01/31/22 10:39 BP 115/57 01/31/22 10:39 Pulse Ox 94 01/31/22 10:39 O2 Del Method 01/30/22 04:17 01/30/22 01/31/22 01/31/22 22:59 06:59 14:59 Intake Total 0 / 0 Output Total 0 / 0 0 / 0 2600 / 2600 Balance 0 / 240 0 / 240 -2600 / -2600 Weight last 48 hrs Weight 87.18 kg Weight 94.347 kg Data : 01/31/22 05:15 01/31/22 05:15 Micro: Microbiology 01/29/22 12:05 Blood Culture - Preliminary Blood Staphylococcus epidermidis 01/29/22 12:00 Blood Culture - Preliminary Blood Staphylococcus epidermidis A&P Assessment and plan (1) GI bleed: hb to 6.5 this am, getting PRBC transfusion. Continue 80 mg IV Protonix twice daily. Stop NSAID. May not be able to discontinue steroid due to prolonged course, acute illness. Surgical consultation appreciated. FOR EGD today Status: Acute (2) Acute on chronic blood loss anemia: As above Status: Acute (3) Syncope: Likely due to symptomatic acute on chronic anemia, hypovolemia. nw hemodynamically stable Status: Acute (4) Observed seizure-like activity: Suspect related to syncopal event. Seizure precautions. Monitor for any recurrence of episodes. In case of recurrence, consider additional work-up. Head CT with senescent changes. Status: Acute (5) Acidosis, lactic: Resolving with improving bicarb and anion gap normalized. Suspect due to acute on chronic anemia, hypovolemia. Status: Acute (6) Weakness: Status: Acute (7) Robbins catheter in place prior to arrival: Robbins catheter placed for urinary retention on 01/12. Status: Acute (8) Urinary retention: Reports history of BPH, used to be on tamsulosin in the past. Continue tamsulosin. For now replace Robbins due to bedrest, acute anemia, hypokalemia, for accurate I&O. Consider voiding trial prior to discharge. Status: Acute (9) Bladder wall thickening: Incidentally noted on CT. Nonspecific, possibly bladder outlet obstruction, inflammation or infection. Neoplastic process not excluded. Did have urinary retention for which Robbins had to be placed on 01/12. Follow up outpatient. Status: Acute (10) BPH (benign prostatic hyperplasia): Status: Acute (11) D-dimer, elevated: Improving. Suspect secondary to bleeding. No obvious PE on CT chest with contrast. Assess lower extremity duplex. Repeat DIC panel. Status: Acute Plan TSH level elevated: Normal free T4. Possibly subclinical hypothyroidism. Follow-up on outpatient basis. BL LE edema: Elevated D-dimer. Normal venous duplex. Constipation Decub History of hypercalcemia DLBCL: Continue Decadron 2 mg for now, continue Bactrim, valacyclovir. Discussed case with Dr. 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
--- NOTE | 2022-01-31 13:43 | ANES.PREANE2 ---
Pre-Anesthetic Assessment Height/Weight: Height 1.88 m Weight 87.18 kg Temp Pulse Resp BP Pulse Ox O2 Del Method 98.0 F 82 17 115/57 94 01/31/22 10:39 01/31/22 10:39 01/31/22 10:39 01/31/22 10:39 01/31/22 10:39 01/30/22 04:17 Preop Diagnosis: Diffuse B-cell lymphoma. Operation Date: 01/31/22 10:30 Proposed Procedures p EGD/COLON(Not Applicable) - Benito Hahn MD s Colonoscopy(Not Applicable) - Benito Hahn MD Familial anesthetic complications: none Was Beta Sabra taken within 24 hours: N/A Was Clonidine taken within 24 hours: N/A Last intake: Intake Last Solid Date 01/30/22 Social No alcohol and No tobacco Exam alert, oriented x 3, clear to auscultation bilaterally and regular rate & rhythm Airway Mallampati: Class II Dentition: full Pulmonary None reported CV/HEM Anemia DEMARCUS Metabolic B cell lymphoma Anesthetic Plan ASA status: 4 Anesthesia: MAC Risk of > 500 ml blood loss (7ml/kg in children): No Medications/Allergies Home Medications Medication Instructions Recorded Confirmed Last Taken Type tamsulosin 0.4 mg capsule 0.4 mg PO QPM 07/01/19 01/29/22 01/10/22 History Sole Supports #1 ea 07/15/19 01/29/22 Unknown Rx carbon fiber #1 ea 11/27/19 01/29/22 Unknown Rx Gel toe sleeve, right hallux #1 ea 12/12/19 01/29/22 Unknown Rx acetaminophen 500 mg tablet 1,000 mg PO Q4H PRN Pain 12/10/21 01/29/22 01/11/22 15:00 History 1000 mg ibuprofen-diphenhydramine citrate 1 tab PO BEDTIME 12/10/21 01/29/22 01/11/22 00:00 History 200 mg-38 mg tablet (Advil PM) prochlorperazine maleate 10 mg 10 mg PO Q4H PRN Mild Nausea #30 12/29/21 01/29/22 Unknown Rx tablet (Compazine) tabs folic acid 1 mg tablet 1 mg PO QPM #90 tabs 01/04/22 01/29/22 01/10/22 Rx allopurinol 300 mg tablet 300 mg PO QAM 01/11/22 01/29/22 01/11/22 06:30 History dexamethasone 4 mg tablet 2 mg PO QAM 01/11/22 01/29/22 01/11/22 History fluconazole 100 mg tablet 100 mg PO QAM 01/11/22 01/29/22 01/11/22 06:30 History (Diflucan) sennosides 8.6 mg-docusate sodium 2 tab PO BID 01/11/22 01/29/22 01/11/22 06:30 History 50 mg tablet (Senokot-S) sulfamethoxazole 800 1 tab PO .ON MON,MON,Mon01/11/22 01/29/22 Unknown History mg-trimethoprim 160 mg tablet (Bactrim DS) valacyclovir 500 mg tablet 500 mg PO QAM 01/11/22 01/29/22 01/11/22 06:30 History see pharmacy comment pantoprazole 40 mg tablet,delayed 40 mg PO BID #14 tabs 01/22/22 01/29/22 01/11/22 14:30 Rx release (Protonix) lactulose 10 gram/15 mL oral 15 ml PO Q12H PRN Constipation 01/29/22 01/29/22 Unknown History solution lorazepam 1 mg tablet 0.5 mg PO Q6H PRN Severe Nausea 01/29/22 01/29/22 Unknown History Allergies Allergy/AdvReac Type Severity Reaction Status Date / Time meperidine [From Demerol] Allergy Mild ADR/ALGY-Hy Verified 01/10/22 08:46 potension Opioids - Morphine Analogues Allergy Mild ADR/ALGY-Hy Verified 01/10/22 08:46 potension oxycodone [From Percocet] Allergy Mild ADR/ALGY-Hy Verified 01/10/22 08:46 potension Current Medications Generic Name Dose Route Start Last Admin Trade Name Freq PRN Reason Stop Dose Admin Allopurinol 300 mg 01/30/22 06:00 01/31/22 07:19 Allopurinol 300 Mg Tablet PO Not Given QAM REJI Dexamethasone 2 mg 01/30/22 06:00 01/31/22 07:19 Dexamethasone 4 Mg Tablet PO Not Given QAM REJI Fluconazole 100 mg 01/30/22 06:00 01/31/22 07:19 Fluconazole 100 Mg Tablet PO Not Given QAM REJI Folic Acid 1 mg 01/29/22 18:00 01/30/22 18:18 Folic Acid 1 Mg Tablet PO 1 mg QPM REJI Administration Lorazepam 0.5 mg 01/29/22 16:47 01/29/22 21:16 Lorazepam 0.5 Mg Tablet PO 0.5 mg Q6H PRN Administration Severe Nausea Ondansetron HCl 4 mg 01/29/22 16:50 01/30/22 21:49 Ondansetron 2 Mg/Ml Sdv 2 Ml IVP 4 mg Q8H PRN Administration vomiting, or N/V if npo Pantoprazole Sodium 80 mg 01/30/22 02:00 01/31/22 02:14 Pantoprazole 40 Mg Sdv IVP 80 mg Q12H REJI Administration Senna/Docusate Sodium 2 tab 01/29/22 18:00 01/31/22 10:06 Sennosides-Docusate Tablet PO 2 tab BID REJI Administration Tamsulosin HCl 0.4 mg 01/29/22 18:00 01/30/22 18:17 Tamsulosin 0.4 Mg Capsule PO 0.4 mg QPM REJI Administration Trimethoprim/Sulfamethoxazole 1 tab 01/31/22 09:00 01/31/22 10:05 Sulfamethoxazole-Trimeth Ds 160-800 Mg Tablet PO 1 tab MoWeFr REJI Administration Protocol Valacyclovir HCl 500 mg 01/30/22 06:00 01/31/22 07:20 Valacyclovir 1,000 Mg Tablet PO Not Given QAM REJI PFSH Anesthesia Medical History BPH (benign prostatic hyperplasia) 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 Otoole Protein-energy malnutrition Surgical History History of cataract surgery Bilateral cataract excisions Hx of repair of rotator cuff S/P arthroscopic surgery of left knee S/P lymph node biopsy (11/17/21) Core needle biopsy of left supraclavicular lymph node Status post surgical removal of malignant neoplasm of skin Family History Father Cancer Brother Diabetes Denies family history of CAD (coronary artery disease) Clotting disorder Dementia Hyperlipidemia Psychiatric illness Chronic kidney disease (CKD) Suicide Anesthesia complication Bleeding disorder Family history of premature coronary artery disease Lung disease Hypertension Stroke Social History (Updated 01/29/22 @ 16:29 by Chema Espinoza MD) Smoking and tobacco status: former smoker Quit status (tobacco): has quit using tobacco Second hand smoke exposure: Yes Smoking risk assessment/counseling performed?: Yes Alcohol intake: never Desire information about alcohol rehabilitation?: No Counseling given: No Desire information about substance/drug rehabilitation?: No Counseling given: No Adopted: No Caregiver/support person: No Lives independently: Yes Household members: spouse Housing: Other Details: Rehabbing at [facility] Marital status: Current occupational status: retired Current occupational exposures/hazards: No History of recent travel: No Current gender identity: Male Data Anesthesia : 01/31/22 05:15 01/31/22 05:15 Short CBC 01/29/22 01/29/22 01/30/22 Range/Units 12:05 17:32 06:30 WBC 7.2 (4.0-10.0) 10^3/uL Hgb 4.4 L* 7.1 L D (11.7-16.6) g/dL Hct 16.0 L* 21.2 L D (42.0-52.0) % MCV 94.6 H (80-94) fl Plt Count 111 L (130-400) 10^3/cmm Neut % (Auto) 90.8 % Neut # (Auto) 5.59 (1.8-7.7) 10^3/uL 01/30/22 01/30/22 01/31/22 Range/Units 10:00 14:05 05:15 WBC 6.2 (4.0-10.0) 10^3/uL Hgb 7.6 L 8.4 L 6.5 L* (11.7-16.6) g/dL Hct 18.4 L* (42.0-52.0) % MCV 89.8 D (80-94) fl Plt Count 111 L (130-400) 10^3/cmm Neut % (Auto) 80.8 % Neut # (Auto) 4.98 (1.8-7.7) 10^3/uL BMP 01/30/22 01/31/22 06:30 05:15 Sodium 135 L 139 Potassium 4.0 3.4 L Chloride 106 105 Carbon Dioxide 22 25 BUN 32 H 25 H Creatinine 0.7 0.7 Glucose 104 107 Calcium 8.0 L 7.6 L Liver Function 01/30/22 Range/Units 06:30 Total Bilirubin 0.7 (0.15-1.2) mg/dL AST 16 (0-40) U/L ALT 13 (0-41) U/L Alkaline Phosphatase 69 (40-130) IU/L Albumin 2.7 L (3.5-5.2) g/dL Urine 01/29/22 Range/Units 22:45 Urine Color Yellow (Yellow) Urine Appearance Clear (CLEAR) Urine pH 5 (5-7) Ur Specific [place] 1.020 (1.005-1.030) Urine Protein Neg (Negative) Urine Glucose (UA) Norm (Normal) Urine Ketones Negative (Negative) Urine Nitrate Negative (Negative) Urine Bilirubin Neg (Negative) Ur Leukocyte Esterase Negative (Negative) Blood Bank 01/29/22 12:45 Blood Type A Positive Rho(D) Type Positive Antibody Screen Negative Coags 01/29/22 17:32 PT 17.00 H INR 1.35 H APTT 24.7 Fibrinogen 133 L Fibrin Degrad Products Pos, 10-40 H D-Dimer 5.71 H Microbiology 01/29/22 12:05 Blood Culture - Preliminary Blood Staphylococcus epidermidis 01/29/22 12:00 Blood Culture - Preliminary Blood Staphylococcus epidermidis Cardiac Studies: Echocardiogram 12/09/21
[2022-01-31] MEDS: sodium chloride 0.9% 1,000 ML 30 ML IV ×2 (14:00→16:03)
--- NOTE | 2022-01-31 14:40 | ANE.PACU2 ---
Inpatient post-anesthesia follow up: Airway intact: Yes Vital signs: Temperature 97.2 F Pulse Rate 76 Respiratory Rate 14 Blood Pressure 93/55 Pulse Oximetry 100 Oxygen Delivery Me thod [ Room Air Current Rate & Del adan] Oxygen Delivery Me thod Nasal Cannula Oxygen Flow Rate 3 Fraction of Inspir ed Oxygen Hydration adequate: Yes Nausea and vomiting: No Pain level: 1 Mental status: Baseline
[2022-01-31] MEDS: bisacodyl 5 mg Tablet 40 MG PO (16:04)
[2022-01-31] MEDS: magnesium citrate Btl 296 mL PO ×2 (16:05→20:38)
[2022-01-31 17:00] LABS: Hematocrit 22.5 % (42.0-52.0)
[2022-01-31] MEDS: tamsulosin 0.4 mg Capsule PO (17:26)
[2022-01-31] MEDS: folic acid 1 mg Tablet PO (17:26)
[2022-01-31 23:05] LABS: Bacillus cereus group Not Detected (NOT DETECT); Bacillus subtillis group Not Detected (NOT DETECT); Corynebacterium Not Detected (NOT DETECT); Cutibacterium acnes (P.acnes) Not Detected (NOT DETECT); Enterococcus Not Detected (NOT DETECT); Enterococcus faecalis Not Detected (NOT DETECT); Enterococcus faecium Not Detected (NOT DETECT); Lactobacillus species Not Detected (NOT DETECT); Listeria Not Detected (NOT DETECT); Listeria monocytogenes Not Detected (NOT DETECT); Micrococcus Not Detected (NOT DETECT); Pan Candida Not Detected (NOT DETECT); Pan Gram-Negative Not Detected (NOT DETECT); Staphylococcus epidermidis Detected (NOT DETECT); Staphylococcus lugdunensis Not Detected (NOT DETECT); Staphylococcus species Detected (NOT DETECT); Streptococcus agalactiae Not Detected (NOT DETECT); Streptococcus anginosus group Not Detected (NOT DETECT); Streptococcus pneumoniae Not Detected (NOT DETECT); Streptococcus pyogenes Not Detected (NOT DETECT); Streptococcus species Not Detected (NOT DETECT); mecA Detected (NOT DETECT); mecC Not Detected (NOT DETECT)
[2022-02-01] VITALS (16 sets, daily range): BP systolic 78–149; BP diastolic 49–72; PULSE 62–91; RESP 14–20; TEMP 36.3–37.1; O2SAT 93–100
[2022-02-01] MEDS: pantoprazole 40 mg SDV 80 MG IVP (03:06)
[2022-02-01 05:50] LABS: Basophils % 0.4 %; Eosinophils % 0.4 %; Hematocrit 22.4 % (42.0-52.0); Hemoglobin 7.5 g/dL (11.7-16.6); Lymphocytes # 0.1 10^3/uL (0.8-4.8); Lymphocytes % 1.6 %; Mean Corpuscular HGB Conc 33.5 g/dL (30.0-36.0); Mean Corpuscular Hemoglobin 31.8 pg (28.0-34.0); Mean Corpuscular Volume 94.9 fl (80-94); Mean Platelet Volume 10.3 fL (7.4-10.4); Monocytes # 0.4 10^3/uL (0.2-0.9); Neutrophils # 4.18 10^3/uL (1.8-7.7); Neutrophils % 81.3 %; Nucleated Red Blood Cells # 0.2 /100WBC; Nucleated Red Blood Cells % 3.3 %; Platelet Count 114 10^3/cmm (130-400); Red Blood Count 2.36 10^6/uL (4.1-5.3); Red Cell Distribution Width 18.1 % (12.1-15.1); White Blood Count 5.1 10^3/uL (4.0-10.0)
[2022-02-01] MEDS: allopurinol 300 mg Tablet PO (05:51)
[2022-02-01] MEDS: fluconazole 100 mg Tablet PO (05:54)
[2022-02-01] MEDS: valACYclovir 1,000 mg Tablet 500 MG PO (05:54)
[2022-02-01] MEDS: dexamethasone 4 mg Tablet 2 MG PO (05:54)
[2022-02-01 06:10] LABS: Anion Gap 10.2 (5-19); Blood Urea Nitrogen 17 mg/dL (8-23); Calcium 7.3 mg/dL (8.5-10.5); Carbon Dioxide 26 mmol/L (22-29); Chloride 106 mmol/L (98-107); Glucose 92 mg/dL (65-115); Osmolality Calculated 289 mOsm/kg (285-295); Potassium 3.2 mmol/L (3.5-5.1); Sodium 139 mmol/L (136-145)
[2022-02-01 06:30] LABS: Add RBC Morph Yes; Slide Review Slide Review Perform
[2022-02-01 06:31] LABS: RBC Morph Comp No
[2022-02-01 06:32] LABS: Anisocytosis 2+; Giant Platelets Trace; Macrocytosis 2+; Microcytosis Trace; Polychromasia 1+
[2022-02-01 06:33] LABS: Ovalocytes Trace
[2022-02-01] MEDS: sennosides-docusate Tablet 2 TAB PO ×2 (08:33→16:30)
--- NOTE | 2022-02-01 12:36 | P.PN_ITS ---
Subjective Subjective: Hemoglobin is 7.5 this morning had 1 episode of melanotic appearing bowel movement. Awaiting colonoscopy this afternoon. This was unable to be completed yesterday due to incomplete bowel prep. Medications: Reviewed: Yes Vitals/I&O/Wt Last Vital Signs Temp 98.5 F 02/01/22 11:10 Pulse 81 02/01/22 11:10 Resp 18 02/01/22 11:10 BP 123/59 02/01/22 11:10 Pulse Ox 96 02/01/22 08:50 O2 Del Method 02/01/22 08:50 O2 Flow Rate 3 01/31/22 20:00 01/31/22 02/01/22 02/01/22 22:59 06:59 14:59 Intake Total 780 / 780 0 / 0 Output Total 1000 / 3600 Balance 780 / -1820 -1000 / -2820 0 / 0 Weight last 48 hrs Weight 74.48 kg Physical Exam Narrative: General: No acute distress, AO x3 HEENT: PERRLA, pupils bilaterally equal and reactive, pallors not present Chest: Normal vesicular breath sounds, no added sounds, equal good air entry bilaterally CVS: S1-S2 regular, no murmurs, no tachycardia, no gallops, no rubs Abdomen: Soft, nontender, no organomegaly, bowel sounds present Neuro: No focal deficits, no facial deformity, AO x3, power 5/5 in all limbs Data : 02/01/22 05:15 02/01/22 05:15 Micro: Microbiology 01/29/22 12:05 Blood Culture - Preliminary Blood Staphylococcus epidermidis 01/29/22 12:00 Blood Culture - Preliminary Blood Staphylococcus epidermidis A&P Assessment and plan (1) GI bleed: hb to 7.5 this am, getting PRBC transfusion. 1 episode of melena reported by RN. Continue 80 mg IV Protonix twice daily. Stop NSAID. May not be able to d iscontinue steroid due to prolonged course, acute illness. Surgical consultation appreciated. Awaiting colonoscopy today Transfusion threshold to be at hemoglobin of 8. Status: Acute (2) Acute on chronic blood loss anemia: As above Status: Acute (3) Syncope: Likely due to symptomatic acute on chronic anemia, hypovolemia. nw hemodynamically stable Status: Acute (4) Observed seizure-like activity: Suspect related to syncopal event. Seizure precautions. Monitor for any recurrence of episodes. No further recurrence. CT head with senescent changes. Status: Acute (5) Acidosis, lactic: Resolved Status: Acute (6) Weakness: Multifactorial related to underlying malignancy, deconditioning. Status: Acute (7) Robbins catheter in place prior to arrival: Robbins catheter placed for urinary retention on 01/12. Status: Acute (8) Urinary retention: Trial of voiding, remove Robbins Status: Acute (9) Bladder wall thickening: Incidentally noted on CT. Nonspecific, possibly bladder outlet obstruction, inflammation or infection. Neoplastic process not excluded. Did have urinary retention for which Robbins had to be placed on 01/12. Follow up outpatient. Status: Acute (10) BPH (benign prostatic hyperplasia): Status: Acute (11) D-dimer, elevated: Improving. Suspect secondary to bleeding. No obvious PE on CT chest with contrast. Assess lower extremity duplex. Repeat DIC panel. Status: Acute Plan TSH level elevated: Normal free T4. Possibly subclinical hypothyroidism. Follow-up on outpatient basis. BL LE edema: Elevated D-dimer. Normal venous duplex. Constipation Decub History of hypercalcemia DLBCL: Continue Decadron 2 mg for now, continue Bactrim, valacyclovir. Discussed case with Dr. Dickey, who will review recent CT CAP and assess if patient is a candidate for further chemo Port-A-Cath in place Staff epidermidis bacteremia and reported on blood cultures from January 29, 2022. Suspect this might be related to contaminant, however given the presence of Port-A-Cath we will repeat cultures to ensure that blood cultures are clear. Attestations Medical Necessity Statement*: Colonoscopy today. 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
[2022-02-01] MEDS: sodium chloride 0.9% 1,000 ML 30 ML IV (12:40)
--- NOTE | 2022-02-01 12:45 | PM.PN ---
Subjective Subjective: no issues overnight, recieved further bowel prep since he was not well prepped yesterday Medications: Reviewed: Yes Vitals/I&O/Wt Last Vital Signs Temp 98.5 F 02/01/22 11:10 Pulse 81 02/01/22 11:10 Resp 18 02/01/22 11:10 BP 123/59 02/01/22 11:10 Pulse Ox 96 02/01/22 08:50 O2 Del Method 02/01/22 08:50 O2 Flow Rate 3 01/31/22 20:00 01/31/22 02/01/22 02/01/22 22:59 06:59 14:59 Intake Total 780 / 780 0 / 0 Output Total 1000 / 3600 Balance 780 / -2820 -1000 / -2820 0 / 0 Weight last 48 hrs Weight 164 lb 3.2 oz Physical Exam Narrative: Abdomen: soft Data : 02/01/22 05:15 02/01/22 05:15 Micro: Microbiology 01/29/22 12:05 Blood Culture - Preliminary Blood Staphylococcus epidermidis 01/29/22 12:00 Blood Culture - Preliminary Blood Staphylococcus epidermidis A&P Assessment and plan (1) GI bleed: Plan for colonoscopy under the MAC today Status: Acute Attestations Medical Necessity Statement*: gi bleed Coding Level of Care Code Acute Entry Level Software Engineer for Tanisha Begum Diagnoses GI bleed K92.2
--- NOTE | 2022-02-01 13:21 | PC.NURSE ---
Blood infused by Merrill Farah CRNA. Last set of vital signs documented.
--- NOTE | 2022-02-01 15:09 | ANE.PACU2 ---
Inpatient post-anesthesia follow up: Airway intact: Yes Vital signs: Temperature 97.4 F Pulse Rate 81 Respiratory Rate 16 Blood Pressure 107/56 Pulse Oximetry 95 Oxygen Delivery Me thod [ Room Air Current Rate & Del adan] Oxygen Delivery Me thod Room Air Oxygen Flow Rate 2 Fraction of Inspir ed Oxygen Hydration adequate: Yes Nausea and vomiting: No Pain level: 1 Mental status: Baseline
[2022-02-01] MEDS: folic acid 1 mg Tablet PO (16:29)
[2022-02-01] MEDS: tamsulosin 0.4 mg Capsule PO (16:30)
--- NOTE | 2022-02-01 16:58 | PC.SOCIAL ---
IMM Update Pg. 2 of IMM Updated. Initialed, dated, and timed, copy placed in chart. Copy provided at bedside.
[2022-02-01 20:21] LABS: Hematocrit 30.6 % (42.0-52.0); Hemoglobin 10.1 g/dL (11.7-16.6)
[2022-02-02] VITALS (7 sets, daily range): BP systolic 113–142; BP diastolic 61–72; PULSE 71–91; RESP 15–18; TEMP 36.4–36.9; O2SAT 96–97
[2022-02-02] MEDS: pantoprazole 40 mg SDV 80 MG IVP ×2 (02:17→13:59)
[2022-02-02] MEDS: fluconazole 100 mg Tablet PO (06:04)
[2022-02-02] MEDS: valACYclovir 1,000 mg Tablet 500 MG PO (06:04)
[2022-02-02] MEDS: dexamethasone 4 mg Tablet 2 MG PO (06:04)
[2022-02-02] MEDS: allopurinol 300 mg Tablet PO (06:04)
[2022-02-02 06:17] LABS: Basophils % 0.2 %; Eosinophils % 0.4 %; Hematocrit 28.6 % (42.0-52.0); Hemoglobin 9.7 g/dL (11.7-16.6); Lymphocytes # 0.1 10^3/uL (0.8-4.8); Lymphocytes % 1.4 %; Mean Corpuscular HGB Conc 33.9 g/dL (30.0-36.0); Mean Corpuscular Hemoglobin 31.8 pg (28.0-34.0); Mean Corpuscular Volume 93.8 fl (80-94); Mean Platelet Volume 10.4 fL (7.4-10.4); Monocytes # 0.4 10^3/uL (0.2-0.9); Monocytes % 7.1 %; Neutrophils # 4.27 10^3/uL (1.8-7.7); Neutrophils % 84.2 %; Nucleated Red Blood Cells # 0.1 /100WBC; Platelet Count 108 10^3/cmm (130-400); Red Blood Count 3.05 10^6/uL (4.1-5.3); Red Cell Distribution Width 17.3 % (12.1-15.1); White Blood Count 5.1 10^3/uL (4.0-10.0)
[2022-02-02 06:54] LABS: Anion Gap 9.5 (5-19); Blood Urea Nitrogen 15 mg/dL (8-23); Calcium 7.1 mg/dL (8.5-10.5); Carbon Dioxide 26 mmol/L (22-29); Chloride 104 mmol/L (98-107); Glucose 92 mg/dL (65-115); Osmolality Calculated 282 mOsm/kg (285-295); Potassium 3.5 mmol/L (3.5-5.1); Sodium 136 mmol/L (136-145)
[2022-02-02 07:22] LABS: Slide Review Slide Review Perform
[2022-02-02] MEDS: sulfamethoxazole-trimeth DS 160-800 mg Tablet 1 TAB PO (09:32)
--- NOTE | 2022-02-02 15:37 | P.PN_ITS ---
Subjective Subjective: Hemoglobin improved to 10.1, stable at 9.7 this morning. Patient had 1 bowel movement at 4 AM, this was not melanotic. He has no hematemesis. He has an appetite and wishes to advance his diet. We will advance him from a full liquid to regular diet today and monitor for any further episodes of bleeding. Recheck hemoglobin in the morning. He underwent repeat colonoscopy yesterday after bowel prep, no clear source of bleeding was identified Medications: Reviewed: Yes Vitals/I&O/Wt Last Vital Signs Temp 98.1 F 02/02/22 15:15 Pulse 84 02/02/22 15:15 Resp 18 02/02/22 15:15 BP 115/72 02/02/22 15:15 Pulse Ox 97 02/02/22 15:15 O2 Del Method 02/02/22 15:15 O2 Flow Rate 2 02/01/22 13:32 02/02/22 02/02/22 02/02/22 06:59 14:59 22:59 Intake Total 1000 / 2019 720 / 720 Balance 1000 / 1720 720 / 720 Weight last 48 hrs Weight 89.539 kg Weight 74.48 kg Physical Exam Narrative: General: No acute distress, AO x3 HEENT: PERRLA, pupils bilaterally equal and reactive, pallors not present Chest: Normal vesicular breath sounds, no added sounds, equal good air entry bilaterally CVS: S1-S2 regular, no murmurs, no tachycardia, no gallops, no rubs Abdomen: Soft, nontender, no organomegaly, bowel sounds present Neuro: No focal deficits, no facial deformity, AO x3, power 5/5 in all limbs Urinary Catheter Management: Harvey: Cath Placed During This Visit: yes, but has since been removed by the nurse Reason for Continuing Indwelling Catheter: Decision to DC Catheter Urinary Catheter Date of Insertion: 01/12/22 Date Urinary Catheter Removed: 02/01/22 Time Urinary Catheter Discontinued: 16:40 Data : 02/02/22 05:38 02/02/22 05:38 Micro: Microbiology 02/01/22 20:01 Blood Culture - Preliminary Blood SPECIMEN COLLECTED 02/01/22 20:02 Blood Culture - Preliminary Blood SPECIMEN COLLECTED 01/29/22 12:00 Blood Culture - Preliminary Blood Staphylococcus epidermidis 01/29/22 12:05 Blood Culture - Preliminary Blood Staphylococcus epidermidis A&P Assessment and plan (1) GI bleed: hb to 9.7 this am, no melanotic bowel movements noted Continue 80 mg IV Protonix twice daily. Will transition to Protonix 40 mg p.o. twice daily and Carafate upon discharge. No obvious source of bleeding was identified on upper or lower endoscopy, however may be related to duodenitis that was visualized on the upper GI study. Stop NSAID. May be related to steroid induced gastritis additionally. Discussed with Dr. Dickey today, patient can start steroid taper, he is no longer planned for any chemotherapy in the near future. Additionally will additionally Discontinue fluconazole and acyclovir prophylaxis Bactrim can discontinue once patient has been tapered off of steroids. Status: Acute (2) Acute on chronic blood loss anemia: As above Status: Acute (3) Syncope: Likely due to symptomatic acute on chronic anemia, hypovolemia. nw hemodynamically stable Status: Acute (4) Observed seizure-like activity: Suspect related to syncopal event. Seizure precautions. Monitor for any recurrence of episodes. No further recurrence. CT head with senescent changes. Status: Acute (5) Acidosis, lactic: Resolved Status: Acute (6) Weakness: Multifactorial related to underlying malignancy, deconditioning. Status: Acute (7) Harvey catheter in place prior to arrival: Status: Acute (8) Urinary retention: harvey removed, patient is voiding urine Status: Acute (9) Bladder wall thickening: Incidentally noted on CT. Nonspecific, possibly bladder outlet obstruction, inflammation or infection. Neoplastic process not excluded. Did have urinary retention for which Harvey had to be placed on 01/12. Follow up outpatient. Status: Acute (10) BPH (benign prostatic hyperplasia): Status: Acute (11) D-dimer, elevated: Improving. Suspect secondary to bleeding. No obvious PE on CT chest with contrast. Assess lower extremity duplex. Repeat DIC panel. Status: Acute Plan Port-A-Cath in place Staff epidermidis bacteremia and reported on blood cultures from January 29, 2022. Suspect this might be related to contaminant, however given the presence of Port-A-Cath we will repeat cultures to ensure that blood cultures are clear. Currently no growth from February 01, 2022. Attestations Medical Necessity Statement*: Advance diet today, monitor for any further episodes of bleeding, trend hemoglobin in the morning. Coding Level of Care Code Acute Scrubber System Attendant for Tanisha Begum Diagnoses GI bleed K92.2 Acute on chronic blood loss anemia D62 Syncope R55 Observed seizure-like activity R56.9 Acidosis, lactic E87.2 Weakness R53.[address] prior to arrival Z97.8 Urinary retention R33.9 Bladder wall thickening N32.89 BPH (benign prostatic hyperplasia) N40.0 D-dimer, elevated R79.89
[2022-02-02] MEDS: folic acid 1 mg Tablet PO (17:33)
[2022-02-02] MEDS: tamsulosin 0.4 mg Capsule PO (17:33)
[2022-02-03] MEDS: pantoprazole 40 mg SDV 80 MG IVP ×2 (02:20→14:22)
[2022-02-03 04:00] VITALS: BP 124/64; PULSE 68; RESP 13; TEMP 36.7; O2SAT 95
[2022-02-03] MEDS: dexamethasone 4 mg Tablet 2 MG PO (05:35)
[2022-02-03] MEDS: valACYclovir 1,000 mg Tablet 500 MG PO (05:35)
[2022-02-03] MEDS: fluconazole 100 mg Tablet PO (05:35)
[2022-02-03] MEDS: allopurinol 300 mg Tablet PO (05:36)
[2022-02-03 08:00] VITALS: BP 143/72; PULSE 70; RESP 16; TEMP 36.8; O2SAT 97
[2022-02-03] MEDS: sennosides-docusate Tablet 2 TAB PO (09:53)
[2022-02-03 10:32] LABS: Hematocrit 34.8 % (42.0-52.0); Hemoglobin 11.6 g/dL (11.7-16.6)
[2022-02-03 11:47] VITALS: BP 134/71; PULSE 92; RESP 16; TEMP 36.5; O2SAT 98
--- NOTE | 2022-02-03 13:04 | PC.SOCIAL ---
IMM Updated Updated pt on IMM. No questions voiced. Provided pt a copy. Initialed, dated, & timed copy in chart.
[2022-02-03] MEDS: acetaminophen 325 mg Tablet 650 MG PO (14:21)
--- NOTE | 2022-02-03 15:14 | PM.DCS ---
Discharge Providers Date of Admission: 01/29/22 16:34 Date of Discharge: February 03, 2022 Attending Provider at Admission: Chema Espinoza Attending Provider at Discharge: Mihaela Castro MD Consults: Dr. Dereck Hahn, general surgery Primary Care Provider: Robert Floyd MD Diagnoses at Discharge Discharge Diagnosis (1) GI bleed: Status: Acute (2) Acute on chronic blood loss anemia: Status: Acute (3) Syncope: Status: Acute (4) Observed seizure-like activity: Status: Acute (5) Acidosis, lactic: Status: Acute (6) Weakness: Status: Acute (7) Robbins catheter in place prior to arrival: Status: Acute (8) Urinary retention: Status: Acute (9) Bladder wall thickening: Status: Acute (10) BPH (benign prostatic hyperplasia): Status: Acute (11) D-dimer, elevated: Status: Acute Reason for Visit Reason for Visit: GENERAL WEAKNESS Hospital Course Hospital Course 81-year-old gentleman with 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 He presented to the hospital with worsening generalized weakness. He was found to have a hemoglobin of 5.1. He had had a syncopal episode at the detention earlier that evening. His stool was positive for occult blood. Melanotic stools were noted. He underwent upper and lower GI endoscopy with findings of duodenitis with small amount of bleeding noted in the second portion of duodenum. Lower GI endoscopy showed no source of bleeding. Proximal ascending colon could not be visualized due to a tortuous colon. Patient received blood transfusion during the course of admission. His hemoglobin eventually stabilized and at the time of discharge is at ~11. He has had no further episodes of melena in the last 36 hours. No hematemesis. Patient feels improvement in his fatigue and weakness. Regarding his DLBCL, due to poor current functional status chemotherapy is currently on hold. He is instructed to follow-up with Dr. Dickey in the next 1 to 2 weeks to decide further course. For now after discussion with his outpatient oncologist, it has been decided to taper down the dexamethasone slowly over the next 3 to 4 weeks. He can discontinue fluconazole and acyclovir prophylaxis since he is not getting any chemo currently. Bactrim prophylaxis to continue until dexamethasone tapers off. It can then be discontinued. Patient has elected to return home with in-home services and home health services rather than returning to the detention. Physical Exam Narrative: General: No acute distress, AO x3 HEENT: PERRLA, pupils bilaterally equal and reactive, pallors not present Chest: Normal vesicular breath sounds, no added sounds, equal good air entry bilaterally CVS: S1-S2 regular, no murmurs, no tachycardia, no gallops, no rubs Abdomen: Soft, nontender, no organomegaly, bowel sounds present Neuro: No focal deficits, no facial deformity, AO x3, power 5/5 in all limbs Urinary Catheter Management: Robbins: Cath Placed During This Visit: yes, but has since been removed by the nurse Reason for Continuing Indwelling Catheter: Decision to DC Catheter Urinary Catheter Date of Insertion: 01/12/22 Date Urinary Catheter Removed: 02/01/22 Time Urinary Catheter Discontinued: 16:40 Discharge Data Studies Completed and Pending Completed Studies During Hospitalization Category Date Time Status CT cervical spin wo con* [id number] Stat Cat Scan 01/29/22 11:[address] head wo con* [id number] Stat Cat Scan 01/29/22 11:[address] abdomen pelvis [CT angio chest w abd pel w Cat Scan 01/29/22 12:38 Completed con] [place] [id number] Routine Ultrasound 01/29/22 16:34 Completed Pending at discharge Category Date Time Status ABO/Rh Type Routine Lab 01/29/22 12:45 Results Blood Culture Stat Lab 02/01/22 20:01 Results Complete Crossmatch Routine Lab 01/29/22 12:45 Results Irradiated Leuko Red RBC Routine Lab 01/30/22 08:30 Results Leukocyte Reduced RBC Routine Lab 01/29/22 12:45 Results Type and Screen Routine Lab 01/29/22 12:45 Results Radiology Impressions Cervical Spine CT 01/29/22 11:43 IMPRESSION: There are degenerative changes as described above. No evidence for acute fracture. Head CT 01/29/22 11:43 IMPRESSION: There are senescent changes of the brain as described above. No evidence for large acute ischemic infarction or acute intracranial injury. Chest/Abdomen/Pelvis CT 01/29/22 12:38 IMPRESSION: Destructive changes at the posterior aspect of the left 8th rib are unchanged from the prior study. There are degenerative changes in the visualized spine. IMPRESSION: 1. Stable lytic lesion involving the right iliac bone. There are mixed lucent/sclerotic densities in multiple lower thoracic/lumbar vertebra as well, similar to the prior study. Findings raise concern for osseous metastatic disease. 2. There is a 3 mm calculus in the bladder adjacent to the left UVJ and a 2 mm calculus in the bladder adjacent to the right UVJ which were not seen on the prior study. No evidence for hydronephrosis or hydroureter. 3. Colonic constipation is present. 4. The bladder wall appears somewhat thickened. This is nonspecific and may represent bladder outlet obstruction, inflammation or infection. Neoplastic process is included in the differential. Venous Duplex 01/29/22 16:34 IMPRESSION: No evidence of deep vein thrombosis. Laboratory Results WBC 5.1 10^3/uL (4.0-10.0) 02/02/22 05:38 Corrected WBC 9.6 10^3/cmm (4.8-10.8) 01/29/22 12:05 RBC 3.05 10^6/uL (4.1-5.3) L 02/02/22 05:38 Hgb 11.6 g/dL (11.7-16.6) L 02/03/22 10:16 Hct 34.8 % (42.0-52.0) L 02/03/22 10:16 MCV 93.8 fl (80-94) 02/02/22 05:38 MCH 31.8 pg (28.0-34.0) 02/02/22 05:38 MCHC 33.9 g/dL (30.0-36.0) 02/02/22 05:38 RDW 17.3 % (12.1-15.1) H 02/02/22 05:38 Plt Count 108 10^3/cmm (130-400) L 02/02/22 05:38 MPV 10.4 fL (7.4-10.4) 02/02/22 05:38 Neut % (Auto) 84.2 % 02/02/22 05:38 Lymph % (Auto) 1.4 % 02/02/22 05:38 [place] % (Auto) 7.1 % 02/02/22 05:38 Eos % (Auto) 0.4 % 02/02/22 05:38 Baso % (Auto) 0.2 % 02/02/22 05:38 Reticulocyte % (Auto) 6.4 % (0.5-2.0) H 01/29/22 12:05 Neut # (Auto) 4.27 10^3/uL (1.8-7.7) 02/02/22 05:38 Lymph # (Auto) 0.1 10^3/uL (0.8-4.8) L 02/02/22 05:38 [place] # (Auto) 0.4 10^3/uL (0.2-0.9) 02/02/22 05:38 Eos # (Auto) 0.0 10^3/uL (0.0-0.8) 02/02/22 05:38 Baso # (Auto) 0.0 10^3/uL (0.0-0.1) 02/02/22 05:38 Nucleated RBC % (auto) 1.0 % 02/02/22 05:38 Total Counted 100 (0-100) 01/29/22 12:05 Atypical Lymphs % 0.0 % (0-5) 01/29/22 12:05 Absolute Neutrophils 9.3 10^3/cmm (1.4-6.5) H 01/29/22 12:05 Segmented Neutrophils 80 % 01/29/22 12:05 Abs Segm Neuts (Man) 8.2 10/cmm (1.6-7.1) H 01/29/22 12:05 Band Neutrophils 11.0 % 01/29/22 12:05 Abs Band Neuts (Man) 1.1 10^3/cmm (0.0-1.2) 01/29/22 12:05 Absolute Lymphocytes 0.0 10^3/cmm (1.2-3.4) L 01/29/22 12:05 Lymphocytes (Manual) 0 % 01/29/22 12:05 Monocytes (Manual) 4.0 % 01/29/22 12:05 Absolute Monocytes 0.4 10^3/cmm (0.1-0.6) 01/29/22 12:05 Eosinophils (Manual) 0 % 01/29/22 12:05 Absolute Eosinophils 0.0 10^3/cmm (0.0-0.7) 01/29/22 12:05 Basophils (Manual) 0.0 % 01/29/22 12:05 Absolute Basophils 0.0 10^3/cmm (0.0-0.2) 01/29/22 12:05 Metamyelocytes 1.0 % 01/29/22 12:05 Myelocytes 4.0 % 01/29/22 12:05 Nucleated RBCs 6.0 /100WBC (0-1) H 01/29/22 12:05 Nucleated RBCs # 0.1 /100WBC 02/02/22 05:38 Platelet Estimate Normal (Normal) 01/29/22 12:05 Giant Platelets Trace 02/01/22 05:15 Polychromasia 1+ H 02/01/22 05:15 Anisocytosis 2+ H 02/01/22 05:15 Microcytosis Trace 02/01/22 05:15 Macrocytosis 2+ H 02/01/22 05:15 Ovalocytes Trace 02/01/22 05:15 Retic Production Index 2.56 01/29/22 12:05 Haptoglobin 128.0 mg/L (30-200) 01/29/22 12:05 PT 17.00 SECONDS (12.1-14.9) H 01/29/22 17:32 INR 1.35 (0.8-1.2) H 01/29/22 17:32 APTT 24.7 SECONDS (23.9-36.7) 01/29/22 17:32 Fibrinogen 133 mg/dL (174-498) L 01/29/22 17:32 Fibrin Degrad Products Pos, 10-40 ug/mL (NEG) H 01/29/22 17:32 D-Dimer 5.71 ug/mIFEU (0-0.59) H 01/29/22 17:32 Sodium 136 mmol/L (136-145) 02/02/22 05:38 Potassium 3.5 mmol/L (3.5-5.1) 02/02/22 05:38 Chloride 104 mmol/L (98-107) 02/02/22 05:38 Carbon Dioxide 26 mmol/L (22-29) 02/02/22 05:38 Anion Gap 9.5 (5-19) 02/02/22 05:38 BUN 15 mg/dL (8-23) 02/02/22 05:38 Creatinine 0.7 mg/dL (0.7-1.2) 02/02/22 05:38 GFR Calculation Not Reportable 02/02/22 05:38 Glucose 92 mg/dL (65-115) 02/02/22 05:38 POC Glucose 163 mg/dL (70-110) H 01/29/22 12:07 Calculated Osmolality 282 mOsm/kg (285-295) L 02/02/22 05:38 Lactate 4.3 mmol/L (0.5-2.2) H* 01/29/22 12:05 Calcium 7.1 mg/dL (8.5-10.5) L 02/02/22 05:38 Magnesium 1.8 mg/dL (1.7-2.3) 01/29/22 12:05 Total Bilirubin 0.7 mg/dL (0.15-1.2) 01/30/22 06:30 AST 16 U/L (0-40) 01/30/22 06:30 ALT 13 U/L (0-41) 01/30/22 06:30 Alkaline Phosphatase 69 IU/L (40-130) 01/30/22 06:30 Lactate Dehydrogenase 623 U/L (135-225) H 01/29/22 12:05 Creatine Kinase 28 U/L (39-308) L 01/29/22 12:05 C-Reactive Protein 3.0 mg/L (0.0-4.9) 01/29/22 12:05 NT-Pro-B Natriuret Pep 687 pg/mL (0-450) H 01/29/22 12:05 Total Protein 3.7 g/dL (6.6-8.7) L 01/30/22 06:30 Albumin 2.7 g/dL (3.5-5.2) L 01/30/22 06:30 Globulin 1.0 g/dL (1.3-4.6) L 01/30/22 06:30 Procalcitonin 0.14 ng/mL (0-0.5) 01/29/22 12:05 TSH 7.46 uIU/mL (0.27-4.20) H 01/29/22 12:05 Free T4 1.16 ng/dL (0.82-1.77) 01/29/22 12:05 Urine Color Yellow (Yellow) 01/29/22 22:45 Urine Appearance Clear (CLEAR) 01/29/22 22:45 Urine pH 5 (5-7) 01/29/22 22:45 Ur Specific [place] 1.020 (1.005-1.030) 01/29/22 22:45 Urine Protein Neg (Negative) 01/29/22 22:45 Urine Glucose (UA) Norm (Normal) 01/29/22 22:45 Urine Ketones Negative (Negative) 01/29/22 22:45 Urine Blood Neg (Negative) 01/29/22 22:45 Urine Nitrate Negative (Negative) 01/29/22 22:45 Urine Bilirubin Neg (Negative) 01/29/22 22:45 Urine Urobilinogen Neg mg/dL (Negative) 01/29/22 22:45 Ur Leukocyte Esterase Negative (Negative) 01/29/22 22:45 Blood Type A Positive 01/29/22 12:45 Rho(D) Type Positive 01/29/22 12:45 Antibody Screen Negative 01/29/22 12:45 Crossmatch See Detail 01/29/22 12:45 Vitals Last Vital Signs Temp 97.7 F 02/03/22 11:47 Pulse 92 02/03/22 11:47 Resp 16 02/03/22 11:47 BP 134/71 02/03/22 11:47 Pulse Ox 98 02/03/22 11:47 O2 Del Method 02/03/22 11:47 O2 Flow Rate 2 02/03/22 07:56 Discharge Plan Discharge Patient Disposition: Home Health Service Condition: Stable Prescriptions: New sucralfate [Carafate] 1 gram tablet 1 g PO Q6H 28 Days Qty: 112 0RF Continued tamsulosin 0.4 mg capsule 0.4 mg PO QPM (DME) Sole Supports Qty: 1 0RF Rx Instructions: As directed (DME) carbon fiber See Rx Instructions .ROUTE .MEDSUPPLY Qty: 1 0RF Rx Instructions: As directed (DME) Gel toe sleeve, right hallux See Rx Instructions .Route .MEDSUPPLY Qty: 1 0RF Rx Instructions: As directed prochlorperazine maleate [Compazine] 10 mg tablet 10 mg PO Q4H PRN (Reason: Mild Nausea) Qty: 30 3RF folic acid 1 mg tablet 1 mg PO QPM Qty: 90 3RF acetaminophen 500 mg Tablet 1,000 mg PO Q4H PRN (Reason: Pain) sennosides-docusate sodium [Senokot-S] 8.6-50 mg Tablet 2 tab PO BID sulfamethoxazole-trimethoprim [Bactrim DS] 800-160 mg tablet 1 tab PO .ON MON,MON,MON Rx Instructions: For infection prevention take on Monday, Monday and Monday while on chemo and for 3 months after completion allopurinol 300 mg tablet 300 mg PO QAM pantoprazole [Protonix] 40 mg tablet,delayed release (DR/EC) 40 mg PO BID Qty: 14 0RF lorazepam 1 mg tablet 0.5 mg PO Q6H PRN (Reason: Severe Nausea) lactulose 10 gram/15 mL solution 15 ml PO Q12H PRN (Reason: Constipation) Discontinued Advil PM 200-38 mg Tablet 1 tab PO BEDTIME fluconazole [Diflucan] 100 mg tablet 100 mg PO QAM Rx Instructions: For fungal infection prevention. valacyclovir 500 mg tablet 500 mg PO QAM Rx Instructions: Continue 3 months post treatment for prevention of viral infection. dexamethasone 4 mg tablet 2 mg PO QAM Discharge Orders: Discharge Order (Routine); Ordered 02/03/22 Ordered By: Mihaela Castro Referrals: Robert Floyd MD [Primary Care Provider] - Benito Hahn MD [Physician] - 1 month Nic Dickey MD [Hospitalist] - 7-10 days [facility] [Provider Group] Discharge Diet: Usual diet Discharge Activity: Resume usual activity Patient Instructions: GI Discharge Instructions, Opioid Safety Discharge Attestations Time Spent in Discharge Care*: greater than 30 min Status at Discharge: Cognitive status at discharge: cognitively intact, Behavioral status at discharge: cooperative, Quality Metrics Clinical Quality Measures [ No reported AMI, CVA or VTE this stay] Coding Level of Care Code Acute Chg FW DC note Diagnoses GI bleed K92.2 Acute on chronic blood loss anemia D62 Syncope R55 Observed seizure-like activity R56.9 Acidosis, lactic E87.2 Weakness R53.[address] prior to arrival Z97.8 Urinary retention R33.9 Bladder wall thickening N32.89 BPH (benign prostatic hyperplasia) N40.0 D-dimer, elevated R79.89
[2022-02-03 16:00] VITALS: BP 151/76; PULSE 91; RESP 16; TEMP 36.7; O2SAT 98
[2022-02-03 16:34] VITALS: BP 151/76; PULSE 91; RESP 16; TEMP 36.7; O2SAT 98
--- NOTE | 2022-02-03 17:40 | PC.NURSE ---
Discharge Note Patient discharged to home via wheelchair accompanied by spouse]. Discharge instructions reviewed with patient and/or passenger representative. Mobile pharmacy medications and/or prescriptions provided. Belongings/home medications returned.
== END 2022-02-03 16:30 | disposition home health service (06) | DRG 378 ==
LOC: ER 15:03 → MEDSURG 16:02
PROVIDERS: Surgery; Admitting Provider Internal Medicine; Emergency Provider Emergency Medicine; PCP Family Medicine; Visit Provider Student in an Organized Health Care Education/Training Program
PROC: 0DJ08ZZ Inspection of Upper Intestinal Tract, Via Natural or Artificial Opening Endoscopic (ICD-10-PCS; CPT 43235; principal; 2022-01-31 10:30)
PROC: 0DJD8ZZ Inspection of Lower Intestinal Tract, Via Natural or Artificial Opening Endoscopic (ICD-10-PCS; CPT 45330; 2022-01-31 10:30)
PROC: 0DJD8ZZ Inspection of Lower Intestinal Tract, Via Natural or Artificial Opening Endoscopic (ICD-10-PCS; CPT 45378; principal; 2022-02-01 13:00)
DX: K29.81 Duodenitis with bleeding (principal); C83.39 Diffuse large B-cell lymphoma, extranodal and solid organ sites; D62 Acute posthemorrhagic anemia; E87.2 Acidosis; R55 Syncope and collapse; R56.9 Unspecified convulsions; N40.1 Benign prostatic hyperplasia with lower urinary tract symptoms; R33.8 Other retention of urine; I10 Essential (primary) hypertension; E78.5 Hyperlipidemia, unspecified; R79.1 Abnormal coagulation profile; R60.0 Localized edema; N20.0 Calculus of kidney; K59.00 Constipation, unspecified; Z96.0 Presence of urogenital implants; Z87.891 Personal history of nicotine dependence; Z79.899 Other long term (current) drug therapy; Z92.21 Personal history of antineoplastic chemotherapy; Z95.828 Presence of other vascular implants and grafts; Z79.52 Long term (current) use of systemic steroids
CPT/HCPCS: 36415; 36416; 36430; 36591; 43235; 45330; 45378; 70450; 71275; 72125; 74177; 80048; 80053; 81003; 82550; 82962; 83010; 83605; 83615; 83735; 83880; 84145; 84439; 84443; 85007; 85014; 85018; 85025; 85045; 85362; 85378; 85384; 85610; 85730; 86140; 86850; 86900; 86920; 87040; 87077; 87150; 87186; 87205; 93005; 93970; 96361; 96374; 96375; 99285; C9113; J2405; J2704; J3010; J7030; J8540; P9016; P9040; Q9967

== ENCOUNTER 2022-02-21 08:00 | Oncology outpatient (recurring) (ONCR) | payer MEDICARE, OTHER, SELFPAY ==
[2022-02-14 09:36] LABS: Basophils % 0.4 %; Eosinophils % 0.8 %; Hematocrit 30.5 % (42.0-52.0); Hemoglobin 9.7 g/dL (11.7-16.6); Lymphocytes # 0.2 10^3/uL (0.8-4.8); Lymphocytes % 3.1 %; Mean Corpuscular HGB Conc 31.8 g/dL (30.0-36.0); Mean Corpuscular Hemoglobin 31.4 pg (28.0-34.0); Mean Corpuscular Volume 98.7 fl (80-94); Mean Platelet Volume 9.8 fL (7.4-10.4); Monocytes # 0.4 10^3/uL (0.2-0.9); Neutrophils # 4.11 10^3/uL (1.8-7.7); Neutrophils % 84.4 %; Nucleated Red Blood Cells % 0 %; Platelet Count 132 10^3/cmm (130-400); Red Blood Count 3.09 10^6/uL (4.1-5.3); Red Cell Distribution Width 17.9 % (12.1-15.1); White Blood Count 4.9 10^3/uL (4.0-10.0)
[2022-02-14 10:06] LABS: Alanine Aminotransferase 19 U/L (0-41); Albumin Level 3.1 g/dL (3.5-5.2); Alkaline Phosphatase 97 U/L (40-130); Anion Gap 12.7 (5-19); Aspartate Amino Transferase 15 U/L (0-40); Blood Urea Nitrogen 16 mg/dL (8-23); Calcium 8.6 mg/dL (8.5-10.5); Carbon Dioxide 27 mmol/L (22-29); Chloride 101 mmol/L (98-107); Globulin 1.7 g/dL (1.3-4.6); Glucose 118 mg/dL (65-115); Iron 86 ug/dL (59-158); Lactate Dehydrogenase 446 U/L (135-225); Osmolality Calculated 286 mOsm/kg (285-295); Percent Saturation 46.2 % (20-50); Potassium 3.7 mmol/L (3.5-5.1); Sodium 137 mmol/L (136-145); Total Bilirubin 0.5 mg/dL (0.15-1.2); Total Iron Binding Capacity 186 mcg/dl; Total Protein 4.8 g/dL (6.6-8.7); Unsaturated Iron Binding 100 ug/dL (112-347)
[2022-02-14 10:30] VITALS: BMI 25.9
[2022-02-14] MEDS: sodium chloride 0.9% 250 ML 75 ML IV (10:54)
[2022-02-14] MEDS: acetaminophen 325 mg Tablet 650 MG PO (10:55)
[2022-02-14] MEDS: diphenhydrAMINE 50 mg/mL SDV 1mL 25 MG IVP (10:55)
[2022-02-14] MEDS: ondansetron 2 mg/ML SDV 2 mL 8 MG IVP (10:56)
[2022-02-14] MEDS: famotidine 20 mg/2 mL INJ IVP (10:56)
[2022-02-14] MEDS: [UNRECOGNIZED DRUG - REMARK] 500 MG IV (16:05)
[2022-02-14 16:59] VITALS: BP 123/60; PULSE 78; RESP 18; TEMP 36.4; O2SAT 97
[2022-02-15] MEDS: sodium chloride 0.9% 250 ML 100 ML IV (09:02)
[2022-02-15] MEDS: ondansetron 2 mg/ML SDV 2 mL 8 MG IVP (09:04)
[2022-02-15 09:54] VITALS: BP 122/53; PULSE 92; RESP 16; TEMP 36.9; O2SAT 99
[2022-02-15 11:13] VITALS: BP 124/54; PULSE 78; RESP 16; TEMP 36.4; O2SAT 96
[2022-02-16] MEDS: sodium chloride 0.9% 250 ML 100 ML IV (09:09)
[2022-02-16] MEDS: palonosetron 0.25 mg/5 mL SDV IVP (09:10)
[2022-02-16 11:05] VITALS: BP 133/63; PULSE 84; RESP 16; TEMP 36.3; O2SAT 98
[2022-02-17 08:45] LABS: Basophils % 0.2 %; Hematocrit 26.8 % (42.0-52.0); Hemoglobin 8.7 g/dL (11.7-16.6); Lymphocytes # 0.1 10^3/uL (0.8-4.8); Lymphocytes % 0.8 %; Mean Corpuscular HGB Conc 32.5 g/dL (30.0-36.0); Mean Corpuscular Hemoglobin 31.9 pg (28.0-34.0); Mean Corpuscular Volume 98.2 fl (80-94); Mean Platelet Volume 9.9 fL (7.4-10.4); Monocytes # 0.1 10^3/uL (0.2-0.9); Monocytes % 1.6 %; Neutrophils # 6.09 10^3/uL (1.8-7.7); Neutrophils % 96.8 %; Nucleated Red Blood Cells % 0 %; Platelet Count 142 10^3/cmm (130-400); Red Blood Count 2.73 10^6/uL (4.1-5.3); Red Cell Distribution Width 17.4 % (12.1-15.1); White Blood Count 6.3 10^3/uL (4.0-10.0)
[2022-02-17] MEDS: pegfilgrastim-bmez 6 mg/0.6 mL SYR SUBCUT (09:13)
[2022-02-17 09:17] VITALS: BP 128/56; PULSE 74; RESP 18; TEMP 36.4; O2SAT 98
[2022-02-21 08:39] LABS: Hematocrit 27.2 % (42.0-52.0); Hemoglobin 8.7 g/dL (11.7-16.6); Lymphocytes # 0.1 10^3/uL (0.8-4.8); Lymphocytes % 3.1 %; Mean Corpuscular Hemoglobin 31.5 pg (28.0-34.0); Mean Corpuscular Volume 98.6 fl (80-94); Mean Platelet Volume 10.5 fL (7.4-10.4); Monocytes # 0.1 10^3/uL (0.2-0.9); Monocytes % 7.3 %; Neutrophils # 1.64 10^3/uL (1.8-7.7); Nucleated Red Blood Cells % 0 %; Platelet Count 71 10^3/cmm (130-400); Red Blood Count 2.76 10^6/uL (4.1-5.3); Red Cell Distribution Width 17.1 % (12.1-15.1); White Blood Count 1.9 10^3/uL (4.0-10.0)
[2022-02-21 09:00] LABS: Alanine Aminotransferase 16 U/L (0-41); Albumin Level 3.2 g/dL (3.5-5.2); Alkaline Phosphatase 107 U/L (40-130); Anion Gap 15.8 (5-19); Aspartate Amino Transferase 11 U/L (0-40); Blood Urea Nitrogen 17 mg/dL (8-23); Calcium 8.3 mg/dL (8.5-10.5); Carbon Dioxide 28 mmol/L (22-29); Chloride 99 mmol/L (98-107); Globulin 1.3 g/dL (1.3-4.6); Glucose 113 mg/dL (65-115); Osmolality Calculated 290 mOsm/kg (285-295); Potassium 3.8 mmol/L (3.5-5.1); Sodium 139 mmol/L (136-145); Total Bilirubin 0.6 mg/dL (0.15-1.2); Total Protein 4.5 g/dL (6.6-8.7)
[2022-02-21 10:30] VITALS: BP 105/58; PULSE 99; RESP 18; TEMP 36.6; O2SAT 97
== END 2022-02-23 23:59 | disposition home or self-care (01) ==
PROVIDERS: PCP Family Medicine; Visit Provider Internal Medicine Medical Oncology
DX: C83.39 Diffuse large B-cell lymphoma, extranodal and solid organ sites (principal)
CPT/HCPCS: 36591; 80053; 82274; 83540; 83550; 83615; 85025; 96367; 96372; 96375; 96401; 96413; 96415; 96417; 99214; J1100; J1200; J2405; J2469; J3490; J7030; J7040; J7050; J9070; J9181; J9370; Q5115; Q5120

== ENCOUNTER → 2022-03-03 13:17 | Outpatient (BNVA) | payer OTHER, MEDICARE, SELFPAY | PROVIDERS: PCP Family Medicine; Visit Provider Surgery | DX: D50.9 Iron deficiency anemia, unspecified (principal); K92.2 Gastrointestinal hemorrhage, unspecified | CPT/HCPCS: 99213 ==

== ENCOUNTER → 2022-03-07 08:10 | Outpatient (BNVA) | payer OTHER, MEDICARE, SELFPAY | PROVIDERS: PCP Family Medicine; Visit Provider Internal Medicine Medical Oncology | DX: Z53.9 Procedure and treatment not carried out, unspecified reason (principal) | CPT/HCPCS: 99214 ==

== ENCOUNTER 2022-03-08 08:00 | Oncology outpatient (recurring) (ONCR) | payer OTHER, MEDICARE, SELFPAY ==
--- NOTE | 2022-02-24 | XR_ITS ---
Date/Time of Exam: 02/24/2022 9:34 AM Reason For Exam: Right arm pain after fall No fracture or dislocation. Articular relationships at the elbow and shoulder are intact. Anchoring screw in the humeral head. 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 IMPRESSION: 1. Intact right humerus. Additional minor findings as above. MTDD
[2022-02-24 08:55] LABS: Basophils % 0.6 %; Hematocrit 25.6 % (42.0-52.0); Hemoglobin 8.4 g/dL (11.7-16.6); Lymphocytes # 0.1 10^3/uL (0.8-4.8); Lymphocytes % 3.3 %; Mean Corpuscular HGB Conc 32.8 g/dL (30.0-36.0); Mean Corpuscular Hemoglobin 31.8 pg (28.0-34.0); Mean Platelet Volume 10.9 fL (7.4-10.4); Monocytes # 0.4 10^3/uL (0.2-0.9); Monocytes % 12.9 %; Neutrophils # 2.32 10^3/uL (1.8-7.7); Neutrophils % 69.7 %; Nucleated Red Blood Cells % 0 %; Platelet Count 75 10^3/cmm (130-400); Red Blood Count 2.64 10^6/uL (4.1-5.3); Red Cell Distribution Width 17.2 % (12.1-15.1); White Blood Count 3.3 10^3/uL (4.0-10.0)
[2022-02-24 09:29] VITALS: RESP 18
[2022-02-24] MEDS: morphine 4 mg/mL SDV 1 mL SUBCUT (09:29)
--- NOTE | 2022-02-24 09:34 | XR_ITS ---
WS: [id number] Exam: XR shoulder RT 1V [id number] Date/Time of Exam: 02/24/2022 9:34 AM Reason For Exam: Right arm pain after fall No fracture or dislocation. Articular relationships at the elbow and shoulder are intact. Anchoring s crew in the humeral head. 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
[2022-02-24 09:43] LABS: Slide Review Slide Review Perform
[2022-02-24 09:58] LABS: Alanine Aminotransferase 13 U/L (0-41); Albumin Level 3.3 g/dL (3.5-5.2); Alkaline Phosphatase 95 U/L (40-130); Anion Gap 13.9 (5-19); Aspartate Amino Transferase 10 U/L (0-40); Blood Urea Nitrogen 14 mg/dL (8-23); Calcium 8.1 mg/dL (8.5-10.5); Carbon Dioxide 25 mmol/L (22-29); Chloride 98 mmol/L (98-107); Globulin 1.7 g/dL (1.3-4.6); Glucose 143 mg/dL (65-115); Osmolality Calculated 279 mOsm/kg (285-295); Potassium 3.9 mmol/L (3.5-5.1); Sodium 133 mmol/L (136-145); Total Bilirubin 0.6 mg/dL (0.15-1.2)
[2022-02-24] MEDS: sodium chloride 0.9% 500 ML 999 ML IV (10:01)
[2022-02-24 11:47] VITALS: BP 108/63; PULSE 68; RESP 16; TEMP 36.4; O2SAT 100
[2022-03-01] VITALS (10 sets, daily range): BP systolic 100–117; BP diastolic 62–81; PULSE 72–96; RESP 18; TEMP 33.3–36.8; O2SAT 96–99
[2022-03-01 08:38] LABS: Basophils % 0.3 %; Eosinophils % 0.1 %; Hematocrit 23.7 % (42.0-52.0); Hemoglobin 7.6 g/dL (11.7-16.6); Lymphocytes # 0.1 10^3/uL (0.8-4.8); Lymphocytes % 1.1 %; Mean Corpuscular HGB Conc 32.1 g/dL (30.0-36.0); Mean Corpuscular Hemoglobin 31.9 pg (28.0-34.0); Mean Corpuscular Volume 99.6 fl (80-94); Monocytes # 0.4 10^3/uL (0.2-0.9); Monocytes % 4.6 %; Neutrophils # 7.94 10^3/uL (1.8-7.7); Nucleated Red Blood Cells % 0 %; Platelet Count 246 10^3/cmm (130-400); Red Blood Count 2.38 10^6/uL (4.1-5.3); Red Cell Distribution Width 17.6 % (12.1-15.1); White Blood Count 9.3 10^3/uL (4.0-10.0)
[2022-03-01 09:31] LABS: Slide Review Slide Review Perform
[2022-03-01] MEDS: sodium chloride 0.9% 250 ML IV (10:28)
[2022-03-01] MEDS: acetaminophen 325 mg Tablet 650 MG PO (10:29)
[2022-03-01] MEDS: FUROsemide 10 mg/mL SDV 2mL 20 MG IVP (10:30)
[2022-03-01] MEDS: diphenhydrAMINE 25 mg Capsule PO (10:30)
[2022-03-07 08:52] LABS: Basophils % 0.2 %; Hematocrit 29.4 % (42.0-52.0); Hemoglobin 9.2 g/dL (11.7-16.6); Lymphocytes # 0.1 10^3/uL (0.8-4.8); Lymphocytes % 1.2 %; Mean Corpuscular HGB Conc 31.3 g/dL (30.0-36.0); Mean Corpuscular Hemoglobin 30.9 pg (28.0-34.0); Mean Corpuscular Volume 98.7 fl (80-94); Mean Platelet Volume 9.2 fL (7.4-10.4); Monocytes # 0.6 10^3/uL (0.2-0.9); Monocytes % 6.9 %; Neutrophils % 87.3 %; Nucleated Red Blood Cells % 0 %; Platelet Count 347 10^3/cmm (130-400); Red Blood Count 2.98 10^6/uL (4.1-5.3); Red Cell Distribution Width 16.9 % (12.1-15.1); White Blood Count 8.9 10^3/uL (4.0-10.0)
[2022-03-07 09:15] LABS: Alanine Aminotransferase 20 U/L (0-41); Albumin Level 2.9 g/dL (3.5-5.2); Alkaline Phosphatase 89 U/L (40-130); Aspartate Amino Transferase 16 U/L (0-40); Blood Urea Nitrogen 14 mg/dL (8-23); Calcium 8.4 mg/dL (8.5-10.5); Carbon Dioxide 25 mmol/L (22-29); Chloride 101 mmol/L (98-107); Creatinine Clr Calc Pharmacy 88.0404; Globulin 2.4 g/dL (1.3-4.6); Glucose 173 mg/dL (65-115); Lactate Dehydrogenase 307 U/L (135-225); Osmolality Calculated 287 mOsm/kg (285-295); Sodium 136 mmol/L (136-145); Total Bilirubin 0.3 mg/dL (0.15-1.2); Total Protein 5.3 g/dL (6.6-8.7)
[2022-03-07] MEDS: acetaminophen 325 mg Tablet 650 MG PO (09:41)
[2022-03-07] MEDS: ondansetron 2 mg/ML SDV 2 mL 8 MG IVP (09:41)
[2022-03-07] MEDS: sodium chloride 0.9% 250 ML 100 ML IV (09:41)
[2022-03-07] MEDS: famotidine 20 mg/2 mL INJ IVP (09:42)
[2022-03-07] MEDS: diphenhydrAMINE 50 mg/mL SDV 1mL 25 MG IVP (09:44)
[2022-03-07] MEDS: rituximab-abbs 500 MG, rituximab-abbs 350 MG in sodium chloride 0.9% 500 ML 68 MG IV (10:11)
[2022-03-07 10:15] VITALS: BP 116/63; PULSE 90; RESP 16; TEMP 36.4; O2SAT 97
[2022-03-07 10:45] VITALS: BP 112/57; PULSE 98; RESP 16; TEMP 36.8; O2SAT 97
[2022-03-07 11:15] VITALS: BP 109/62; PULSE 86; RESP 16; TEMP 36.6; O2SAT 96
[2022-03-07 11:45] VITALS: BP 125/63; PULSE 80; RESP 16; TEMP 36.5; O2SAT 97
[2022-03-07 15:54] VITALS: BP 114/63; PULSE 80; RESP 16; TEMP 36.3; O2SAT 98
[2022-03-08] MEDS: sodium chloride 0.9% 250 ML 100 ML IV (08:13)
[2022-03-08] MEDS: ondansetron 2 mg/ML SDV 2 mL 8 MG IVP (08:13)
[2022-03-08 08:15] VITALS: BP 127/55; PULSE 103; RESP 18; TEMP 36.3; O2SAT 98
[2022-03-08 08:22] VITALS: BP 113/48; PULSE 76; TEMP 36.7; O2SAT 98
[2022-03-08 10:30] VITALS: BP 113/48; PULSE 76; TEMP 36.7; O2SAT 98
== END 2022-03-08 09:49 | disposition home or self-care (01) ==
PROVIDERS: PCP Family Medicine; Visit Provider Internal Medicine Medical Oncology
DX: Z51.11 Encounter for antineoplastic chemotherapy (principal); Z79.52 Long term (current) use of systemic steroids; C83.39 Diffuse large B-cell lymphoma, extranodal and solid organ sites
CPT/HCPCS: 36415; 36430; 36591; 73020; 73030; 73060; 80053; 83615; 85025; 86850; 86900; 86920; 96365; 96367; 96372; 96374; 96375; 96413; 96415; 96417; J1100; J1200; J1940; J2270; J2405; J3490; J7030; J7040; J7050; J9070; J9181; J9370; P9016; Q5115

== ENCOUNTER 2022-03-14 08:00 | Oncology outpatient (recurring) (ONCR) | payer OTHER, MEDICARE, SELFPAY ==
[2022-03-09 08:08] VITALS: BP 125/52; PULSE 99; RESP 18; TEMP 36.3; O2SAT 99
[2022-03-09] MEDS: sodium chloride 0.9% 250 ML 100 ML IV (08:16)
[2022-03-09] MEDS: palonosetron 0.25 mg/5 mL SDV IVP (08:17)
[2022-03-09] MEDS: pegfilgrastim 6 mg/0.6 mL Kit (onpro) SUBCUT (10:13)
[2022-03-09 10:14] VITALS: BP 128/55; PULSE 82; RESP 16; TEMP 36.2; O2SAT 97
[2022-03-14] VITALS (13 sets, daily range): BP systolic 96–123; BP diastolic 46–59; PULSE 87–121; RESP 14–18; TEMP 36.4–36.7; O2SAT 96–98
[2022-03-14 08:41] LABS: Eosinophils % 0.3 %; Hematocrit 25.6 % (42.0-52.0); Hemoglobin 8.2 g/dL (11.7-16.6); Mean Corpuscular Hemoglobin 31.5 pg (28.0-34.0); Mean Corpuscular Volume 98.5 fl (80-94); Mean Platelet Volume 11.2 fL (7.4-10.4); Monocytes # 0.3 10^3/uL (0.2-0.9); Monocytes % 6.5 %; Neutrophils # 3.57 10^3/uL (1.8-7.7); Neutrophils % 89.2 %; Nucleated Red Blood Cells % 0 %; Platelet Count 102 10^3/cmm (130-400); Red Cell Distribution Width 16.3 % (12.1-15.1)
[2022-03-14 09:08] LABS: Alanine Aminotransferase 11 U/L (0-41); Albumin Level 2.7 g/dL (3.5-5.2); Alkaline Phosphatase 100 U/L (40-130); Anion Gap 14.3 (5-19); Aspartate Amino Transferase 8 U/L (0-40); Blood Urea Nitrogen 14 mg/dL (8-23); Calcium 8.2 mg/dL (8.5-10.5); Carbon Dioxide 27 mmol/L (22-29); Chloride 100 mmol/L (98-107); Globulin 2.1 g/dL (1.3-4.6); Glucose 182 mg/dL (65-115); Osmolality Calculated 291 mOsm/kg (285-295); Potassium 3.3 mmol/L (3.5-5.1); Sodium 138 mmol/L (136-145); Total Bilirubin 0.6 mg/dL (0.15-1.2); Total Protein 4.8 g/dL (6.6-8.7)
[2022-03-14] MEDS: diphenhydrAMINE 25 mg Capsule PO (09:28)
[2022-03-14] MEDS: acetaminophen 325 mg Tablet 650 MG PO (09:28)
[2022-03-14] MEDS: sodium chloride 0.9% 100 mL Bag 50 ML IV (10:13)
[2022-03-14] MEDS: FUROsemide 10 mg/mL SDV 2mL 20 MG IVP (12:00)
== END 2022-03-25 23:59 | disposition home or self-care (01) ==
PROVIDERS: Nurse Practitioner; PCP Family Medicine; Visit Provider Internal Medicine Medical Oncology
DX: Z53.9 Procedure and treatment not carried out, unspecified reason (principal); C83.39 Diffuse large B-cell lymphoma, extranodal and solid organ sites; M79.601 Pain in right arm
CPT/HCPCS: 36430; 80053; 85025; 86850; 86900; 86920; 96367; 96375; 96377; 96413; J1100; J1940; J2469; J2506; J7030; J7050; J9181; P9016

== ENCOUNTER 2022-03-17 10:20 | Oncology outpatient (recurring) (ONCR) | payer OTHER, MEDICARE, SELFPAY ==
[2022-03-17 10:45] LABS: Basophils # 0.1 10^3/uL (0.0-0.1); Basophils % 1.1 %; Hematocrit 28.7 % (42.0-52.0); Hemoglobin 9.4 g/dL (11.7-16.6); Lymphocytes # 0.1 10^3/uL (0.8-4.8); Lymphocytes % 2.1 %; Mean Corpuscular HGB Conc 32.8 g/dL (30.0-36.0); Mean Corpuscular Hemoglobin 31.5 pg (28.0-34.0); Mean Corpuscular Volume 96.3 fl (80-94); Mean Platelet Volume 11.2 fL (7.4-10.4); Monocytes # 0.5 10^3/uL (0.2-0.9); Monocytes % 9.7 %; Neutrophils # 3.63 10^3/uL (1.8-7.7); Neutrophils % 76.7 %; Nucleated Red Blood Cells % 0 %; Platelet Count 101 10^3/cmm (130-400); Red Blood Count 2.98 10^6/uL (4.1-5.3); Red Cell Distribution Width 16.3 % (12.1-15.1); White Blood Count 4.7 10^3/uL (4.0-10.0)
[2022-03-17 11:18] LABS: Slide Review Slide Review Perform
[2022-03-17 11:20] LABS: Alanine Aminotransferase 8 U/L (0-41); Albumin Level 2.8 g/dL (3.5-5.2); Alkaline Phosphatase 94 U/L (40-130); Anion Gap 13.7 (5-19); Aspartate Amino Transferase 10 U/L (0-40); Blood Urea Nitrogen 11 mg/dL (8-23); Calcium 8.4 mg/dL (8.5-10.5); Carbon Dioxide 27 mmol/L (22-29); Chloride 99 mmol/L (98-107); Glucose 133 mg/dL (65-115); Osmolality Calculated 283 mOsm/kg (285-295); Potassium 3.7 mmol/L (3.5-5.1); Sodium 136 mmol/L (136-145); Total Bilirubin 0.3 mg/dL (0.15-1.2); Total Protein 4.8 g/dL (6.6-8.7)
[2022-03-17] MEDS: acetaminophen 500 mg Tablet PO (11:49)
== END 2022-03-25 23:59 | disposition home or self-care (01) ==
PROVIDERS: PCP Family Medicine; Visit Provider Internal Medicine Medical Oncology
DX: D69.6 Thrombocytopenia, unspecified (principal); D62 Acute posthemorrhagic anemia
CPT/HCPCS: 36591; 80053; 85025

== ENCOUNTER 2022-04-04 10:00 | Oncology outpatient (recurring) (ONCR) | payer OTHER, MEDICARE, SELFPAY ==
[2022-03-28 09:22] LABS: Basophils % 0.2 %; Eosinophils % 0.1 %; Hematocrit 28.3 % (42.0-52.0); Hemoglobin 8.9 g/dL (11.7-16.6); Lymphocytes # 0.1 10^3/uL (0.8-4.8); Lymphocytes % 1.6 %; Mean Corpuscular HGB Conc 31.4 g/dL (30.0-36.0); Mean Corpuscular Hemoglobin 31.2 pg (28.0-34.0); Mean Corpuscular Volume 99.3 fl (80-94); Mean Platelet Volume 9.2 fL (7.4-10.4); Monocytes # 0.8 10^3/uL (0.2-0.9); Monocytes % 8.5 %; Neutrophils # 7.74 10^3/uL (1.8-7.7); Neutrophils % 87.3 %; Nucleated Red Blood Cells % 0 %; Platelet Count 360 10^3/cmm (130-400); Red Blood Count 2.85 10^6/uL (4.1-5.3); Red Cell Distribution Width 16.6 % (12.1-15.1); White Blood Count 8.9 10^3/uL (4.0-10.0)
[2022-03-28 10:38] LABS: Alanine Aminotransferase 8 U/L (0-41); Albumin Level 2.9 g/dL (3.5-5.2); Alkaline Phosphatase 102 U/L (40-130); Anion Gap 16.2 (5-19); Aspartate Amino Transferase 10 U/L (0-40); Blood Urea Nitrogen 12 mg/dL (8-23); Calcium 8.8 mg/dL (8.5-10.5); Carbon Dioxide 24 mmol/L (22-29); Chloride 100 mmol/L (98-107); Globulin 2.2 g/dL (1.3-4.6); Glucose 138 mg/dL (65-115); Lactate Dehydrogenase 242 U/L (135-225); Osmolality Calculated 284 mOsm/kg (285-295); Potassium 4.2 mmol/L (3.5-5.1); Sodium 136 mmol/L (136-145); Total Bilirubin 0.4 mg/dL (0.15-1.2); Total Protein 5.1 g/dL (6.6-8.7)
[2022-03-28] MEDS: sodium chloride 0.9% 250 ML 75 ML IV (11:29)
[2022-03-28] MEDS: acetaminophen 325 mg Tablet 650 MG PO (11:30)
[2022-03-28] MEDS: ondansetron 2 mg/ML SDV 2 mL 8 MG IVP (11:32)
[2022-03-28] MEDS: famotidine 20 mg/2 mL INJ IVP (11:34)
[2022-03-28] MEDS: diphenhydrAMINE 50 mg/mL SDV 1mL 25 MG IVP (11:36)
[2022-03-28] MEDS: rituximab-abbs 500 MG, rituximab-abbs 350 MG in sodium chloride 0.9% 500 ML 195 MG IV (11:56)
[2022-03-28 12:03] VITALS: BP 115/67; PULSE 93; RESP 16; TEMP 36.3; O2SAT 98
[2022-03-28 12:35] VITALS: BP 108/63; PULSE 80; RESP 16; TEMP 36.3; O2SAT 91
[2022-03-28 13:06] VITALS: BP 110/57; PULSE 91; RESP 16; TEMP 36.1; O2SAT 96
[2022-03-28 17:45] VITALS: BP 141/63; PULSE 98; RESP 16; TEMP 36.1; O2SAT 98
[2022-03-29 09:20] VITALS: BP 130/72; PULSE 80; RESP 18; TEMP 36.6; O2SAT 97
[2022-03-29] MEDS: sodium chloride 0.9% 250 ML 75 ML IV (09:28)
[2022-03-29] MEDS: ondansetron 2 mg/ML SDV 2 mL 8 MG IVP (09:29)
[2022-03-29 11:05] VITALS: BP 120/78; PULSE 74; RESP 18; TEMP 37.1; O2SAT 98
[2022-03-30] MEDS: sodium chloride 0.9% 250 ML 75 ML IV (09:19)
[2022-03-30] MEDS: palonosetron 0.25 mg/5 mL SDV IVP (09:20)
[2022-03-30] MEDS: pegfilgrastim 6 mg/0.6 mL Kit (onpro) SUBCUT (11:16)
[2022-03-30 11:25] VITALS: BP 133/66; PULSE 87; RESP 18; TEMP 36.2; O2SAT 97
[2022-04-04 10:14] VITALS: BP 108/60; PULSE 93; RESP 16; TEMP 36.2; O2SAT 98
[2022-04-04 10:20] LABS: Basophils % 0.8 %; Eosinophils % 0.4 %; Hematocrit 28.2 % (42.0-52.0); Hemoglobin 9.3 g/dL (11.7-16.6); Lymphocytes # 0.1 10^3/uL (0.8-4.8); Lymphocytes % 1.2 %; Mean Corpuscular Hemoglobin 32.6 pg (28.0-34.0); Mean Corpuscular Volume 98.9 fl (80-94); Mean Platelet Volume 11.5 fL (7.4-10.4); Monocytes # 0.4 10^3/uL (0.2-0.9); Monocytes % 8.8 %; Nucleated Red Blood Cells % 0 %; Platelet Count 82 10^3/cmm (130-400); Red Blood Count 2.85 10^6/uL (4.1-5.3); Red Cell Distribution Width 16.1 % (12.1-15.1)
[2022-04-04 10:52] LABS: Neutrophils % 88.8 %; Slide Review Slide Review Perform
== END 2022-04-05 10:41 | disposition home or self-care (01) ==
PROVIDERS: Nurse Practitioner; PCP Family Medicine; Visit Provider Internal Medicine Medical Oncology
DX: C83.39 Diffuse large B-cell lymphoma, extranodal and solid organ sites (principal); D62 Acute posthemorrhagic anemia; Z79.899 Other long term (current) drug therapy
CPT/HCPCS: 36591; 80053; 83615; 85025; 86850; 86900; 96367; 96372; 96375; 96377; 96413; 96415; 96417; 99214; 99215; J1100; J1200; J2405; J2469; J2506; J3490; J7030; J7040; J7050; J9070; J9181; J9370; Q5115

== ENCOUNTER 2022-04-25 06:30 | Inpatient (IN) | payer OTHER, SELFPAY ==
[2022-04-25] VITALS (7 sets, daily range): BP systolic 95–122; BP diastolic 47–99; PULSE 90–102; RESP 13–18; TEMP 36.8–37.5; O2SAT 94–97; BMI 26.9
--- NOTE | 2022-04-25 06:48 | ECG_ITS ---
[facility] Test Date: 2022-04-25 Pat Name: Kendall Camejo Department: Room: Gender: Male Visual Supervisor: : 1940 Requested By: Hernesto Bang Order Number: [id number] Young MD: Aleksander Fitzgerald M.D. Measurements Intervals [place] Rate: 96 P: IA: QRS: -24 QRSD: 89 T: 9 QT: 327 QTc: 414 Interpretive Statements ATRIAL FIBRILLATION LOW QRS VOLTAGE IN PRECORDIAL LEADS [QRS DEFLECTION < 1.0 mV IN CHEST LEADS] POSSIBLE ANTERIOR MYOCARDIAL INFARCTION , PROBABLY OLD [30 ms Q WAVE IN V3/V4, OR R < 0.2 mV IN V4] ABNORMAL RHYTHM ECG Compared to ECG 01/29/2022 11:32:36 Low QRS voltage now present Sinus tachycardia no longer present Myocardial infarct finding still present Electronically Signed On 04-25-2022 14:53:32 CDT by Aleksander Fitzgerald M.D. [id number]
[2022-04-25] MEDS: sodium chloride 0.9% 1,000 ML 999 ML IV (06:55)
[2022-04-25 07:10] LABS: Hematocrit 25.5 % (42.0-52.0); Hemoglobin 8.4 g/dL (11.7-16.6); INR 1.13 (0.8-1.2); Lymphocytes % 12.5 %; Mean Corpuscular HGB Conc 32.9 g/dL (30.0-36.0); Mean Corpuscular Hemoglobin 32.2 pg (28.0-34.0); Mean Corpuscular Volume 97.7 fl (80-94); Mean Platelet Volume 11.4 fL (7.4-10.4); Monocytes # 0.1 10^3/uL (0.2-0.9); Monocytes % 43.8 %; Nucleated Red Blood Cells % 0 %; Platelet Count 78 10^3/cmm (130-400); Red Blood Count 2.61 10^6/uL (4.1-5.3); Red Cell Distribution Width 18.5 % (12.1-15.1)
[2022-04-25 07:11] LABS: Partial Thromboplastin Time 27.5 SECONDS (23.9-36.7)
[2022-04-25 07:17] LABS: Alanine Aminotransferase 8 U/L (0-41); Albumin Level 2.9 g/dL (3.5-5.2); Alkaline Phosphatase 73 U/L (40-130); Anion Gap 14.8 (5-19); Aspartate Amino Transferase 7 U/L (0-40); Blood Urea Nitrogen 22 mg/dL (8-23); Calcium 8.6 mg/dL (8.5-10.5); Carbon Dioxide 27 mmol/L (22-29); Chloride 95 mmol/L (98-107); Globulin 1.6 g/dL (1.3-4.6); Glucose 98 mg/dL (65-115); Osmolality Calculated 279 mOsm/kg (285-295); Potassium 3.8 mmol/L (3.5-5.1); Sodium 133 mmol/L (136-145); Total Bilirubin 0.9 mg/dL (0.15-1.2); Total Protein 4.5 g/dL (6.6-8.7)
--- NOTE | 2022-04-25 07:31 | ED_ITS ---
HPI - Weakness General: Chief complaint: Weakness Stated complaint: Generalized Weakness Time Seen by Provider: 04/25/22 06:33 Source: patient Mode of arrival: ambulatory History of Present Illness: 82-year-old male presents emergency room complaining of generalized weakness. Patient was diagnosed with B-cell lymphoma earlier this year. His last chemo was 1 week ago. He had bloody bowel movement x1. He is not on any anticoagulants he has had problems with GI bleed in the past according to his old record. Does not have any abdominal pain now denies any dysuria urgency or frequency no fever sweats or chills. Patient had a GI bleed in January of this year which required admission. He is known to have multiple osseous metastasis. On follow-up imaging there has been signs of improvement of his tumor including some osseous tumors. MD Complaint: generalized weakness (Hematochezia single episode) Duration: improved Location: generalized Migration: none Severity: mild Relieving factors: none Exacerbating factors: none Associated symptoms: Denies chest pain, chills, confusion, melena, decreased appetite, diaphoresis, dysuria, easy bruising, fever(s), headache(s), myalgias, nausea, rash, short of breath, syncope or vomiting Review of Systems Const: Denies: fever(s), chills or diaphoresis Card: Denies: chest pain or syncope GI: Denies: nausea, vomiting or melena : Denies: dysuria Neuro: Denies: headache(s) or confusion Mauricio/Lymph: Denies: easy bruising PFSH ED PFSH: Medical History Bladder wall thickening BPH (benign prostatic hyperplasia) 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 Otoole S/P arthroscopic surgery of left knee S/P lymph node biopsy (11/17/21) Core needle biopsy of left supraclavicular lymph node Status post surgical removal of malignant neoplasm of skin Family History Father Cancer Brother Diabetes Denies family history of CAD (coronary artery disease) Clotting disorder Dementia Hyperlipidemia Psychiatric illness Chronic kidney disease (CKD) Suicide Anesthesia complication Bleeding disorder Family history of premature coronary artery disease Lung disease Hypertension Stroke Social History Smoking and tobacco status: never smoked Quit status (tobacco): has quit using tobacco Second hand smoke exposure: Yes Smoking risk assessment/counseling performed?: Yes Alcohol intake: never Desire information about alcohol rehabilitation?: No Counseling given: No Desire information about substance/drug rehabilitation?: No Counseling given: No Adopted: No Caregiver/support person: No Lives independently: Yes Household members: spouse Housing: Other Details: Rehabbing at [facility] Marital status: Current occupational status: retired Current occupational exposures/hazards: No History of recent travel: No Current gender identity: Male Physical Exam Const: COMMON NORMALS: no acute distress GENERAL APPEARANCE: cooperative and comfortable ORIENTATION/CONSCIOUSNESS: Yes awake, Yes oriented to person, Yes oriented to place and Yes oriented to time HENMT: COMMON NORMALS: normocephalic, atraumatic and hearing grossly normal bilaterally HEAD & SCALP: normocephalic and atraumatic Lymph: LYMPHATIC: no lymphadenopathy noted and no lymphedema noted Resp: COMMON NORMALS: normal respiratory effort, No retractions, No use of accessory muscles and clear to auscultation bilaterally AUSCULTATION: clear to auscultation bilaterally Cardio: COMMON NORMALS: regular rate, regular rhythm and No murmurs present (Cardio) RATE: regular rate RHYTHM: regular rhythm GI: COMMON NORMALS: Soft to palpation and No hepatosplenomegaly present AUSCULTATION: Yes normoactive bowel sounds PALPATION: Yes Soft to palpation, No Tenderness to palpation present (GI), No Guarding due to palpation present (GI) and Yes No hepatosplenomegaly present Extremity: COMMON NORMALS: normal to inspection, capillary refill normal, no clubbing, cyanosis or edema, no calf tenderness and no pedal edema Neuro: SENSORIUM/ORIENTATION: Yes oriented to person, Yes oriented to place and Yes oriented to time Skin: COMMON NORMALS: no rashes or lesions noted GENERAL SKIN EXAM: no rashes or lesions noted Course Vital Signs: Vital signs: Vital Signs Temperature 99.3 F 04/25/22 06:37 Pulse Rate 102 H 04/25/22 06:37 Respiratory Rate 16 04/25/22 06:37 Blood Pressure 114/99 04/25/22 06:37 Pulse Oximetry 96 04/25/22 06:37 Oxygen Delivery Me thod 04/25/22 06:37 MDM - Weakness Medical Decision Making Rectal bleeding with leukocytopenia and decreased absolute neutrophil count cultures done. Discussed with hospitalist will admit in reverse isolation monitor for further bleeding. He has had problems with GI bleed in the past and required transfusion. His hemoglobin at this time is borderline at 8.4 but he does not require transfusion immediately. He is also thrombocytopenic with a platelet count of 78. His hemoglobin 7 days ago was 9.9. Medical Records I reviewed the patient's medical records. Lab Data I reviewed the patient's lab results. : 04/25/22 06:30 04/25/22 06:30 Radiology Impressions Chest X-Ray 04/25/22 08:14 IMPRESSION: No significant cardiopulmonary abnormality. Laboratory Results WBC 0.2 10^3/uL (4.0-10.0) L* 04/25/22 06:30 RBC 2.61 10^6/uL (4.1-5.3) L 04/25/22 06:30 Hgb 8.4 g/dL (11.7-16.6) L 04/25/22 06:30 Hct 25.5 % (42.0-52.0) L 04/25/22 06:30 MCV 97.7 fl (80-94) H 04/25/22 06:30 MCH 32.2 pg (28.0-34.0) 04/25/22 06:30 MCHC 32.9 g/dL (30.0-36.0) 04/25/22 06:30 RDW 18.5 % (12.1-15.1) H 04/25/22 06:30 Plt Count 78 10^3/cmm (130-400) L 04/25/22 06:30 MPV 11.4 fL (7.4-10.4) H 04/25/22 06:30 Neut % (Auto) 43.7 % 04/25/22 06:30 Lymph % (Auto) 12.5 % 04/25/22 06:30 [place] % (Auto) 43.8 % 04/25/22 06:30 Eos % (Auto) 0.0 % 04/25/22 06:30 Baso % (Auto) 0.0 % 04/25/22 06:30 Neut # (Auto) 0.06 10^3/uL (1.8-7.7) L* 04/25/22 06:30 Lymph # (Auto) 0.0 10^3/uL (0.8-4.8) L 04/25/22 06:30 [place] # (Auto) 0.1 10^3/uL (0.2-0.9) L 04/25/22 06:30 Eos # (Auto) 0.0 10^3/uL (0.0-0.8) 04/25/22 06:30 Baso # (Auto) 0.0 10^3/uL (0.0-0.1) 04/25/22 06:30 Nucleated RBC % (auto) 0 % 04/25/22 06:30 Nucleated RBCs # 0.0 /100WBC 04/25/22 06:30 PT 14.80 SECONDS (12.1-14.9) 04/25/22 06:30 INR 1.13 (0.8-1.2) 04/25/22 06:30 APTT 27.5 SECONDS (23.9-36.7) 04/25/22 06:30 Sodium 133 mmol/L (136-145) L 04/25/22 06:30 Potassium 3.8 mmol/L (3.5-5.1) 04/25/22 06:30 Chloride 95 mmol/L (98-107) L 04/25/22 06:30 Carbon Dioxide 27 mmol/L (22-29) 04/25/22 06:30 Anion Gap 14.8 (5-19) 04/25/22 06:30 BUN 22 mg/dL (8-23) 04/25/22 06:30 Creatinine 0.6 mg/dL (0.7-1.2) L 04/25/22 06:30 GFR Calculation Not Reportable 04/25/22 06:30 Glucose 98 mg/dL (65-115) 04/25/22 06:30 Calculated Osmolality 279 mOsm/kg (285-295) L 04/25/22 06:30 Calcium 8.6 mg/dL (8.5-10.5) 04/25/22 06:30 Total Bilirubin 0.9 mg/dL (0.15-1.2) 04/25/22 06:30 AST 7 U/L (0-40) 04/25/22 06:30 ALT 8 U/L (0-41) 04/25/22 06:30 Alkaline Phosphatase 73 U/L (40-130) 04/25/22 06:30 Total Protein 4.5 g/dL (6.6-8.7) L 04/25/22 06:30 Albumin 2.9 g/dL (3.5-5.2) L 04/25/22 06:30 Globulin 1.6 g/dL (1.3-4.6) 04/25/22 06:30 Discharge Plan Discharge Patient Disposition: Admitted As Inpatient Clinical Impression: Acute lower GI bleeding, Diffuse large B-cell lymphoma of extranodal site, Thrombocytopenia Condition: Stable Prescriptions: No Action tamsulosin 0.4 mg capsule 0.4 mg PO QPM valacyclovir 500 mg tablet 500 mg PO BID ondansetron 4 mg tablet,disintegrating 4 mg PO Q8H PRN Digestive Advantage Advanced 10 billion cell capsule See Rx Instructions PO DAILY Rx Instructions: 1 tablet orally daily; meloxicam 15 mg tablet 15 mg PO DAILY Qty: 30 1RF folic acid 1 mg tablet 1 mg PO QPM Qty: 90 3RF hydrocodone-acetaminophen 5-300 mg tablet 1 tab PO Q4H PRN (Reason: pain) 30 Days Qty: 60 0RF potassium chloride 10 mEq capsule, extended release 10 meq PO BID Qty: 60 2RF furosemide 20 mg tablet 20 mg PO DAILY Qty: 30 2RF sulfamethoxazole-trimethoprim [Bactrim DS] 800-160 mg tablet 1 tab PO .ON MON,MON,MON Rx Instructions: For infection prevention take on Monday, Monday and Monday while on chemo and for 3 months after completion sennosides-docusate sodium [Senokot-S] 8.6-50 mg tablet 2 tab PO BID PRN pantoprazole [Protonix] 40 mg tablet,delayed release (DR/EC) 40 mg PO BID Qty: 14 0RF Referrals: Robert Floyd MD [Primary Care Provider] - Patient Instructions: Opioid Safety, Pain Management Coding Level of Care Code ED Medical Office Representative for Chg Fwd Exam Comprehensive
[2022-04-25 07:35] LABS: Neutrophils % 43.7 %; Slide Review Slide Review Perform
[2022-04-25 07:52] LABS: Neutrophils # 0.06 10^3/uL (1.8-7.7); White Blood Count 0.2 10^3/uL (4.0-10.0)
--- NOTE | 2022-04-25 08:14 | XRR_ITS ---
PROCEDURE INFORMATION: Exam: XR Chest Exam date and time: 04/25/2022 8:22 AM Age: 82 years old Clinical indication: Patient HX: Generalized weakness, cancer PT. PT had round #5 of chemo Monday and has felt extreme weakness for 2 days now. HX of bone lymphoma; Additional info: Neutropenia TECHNIQUE: Imaging protocol: Radiologic exam of the chest. Views: 1 view. COMPARISON: CR (CHEST, ) 01/20/2022 10:24 PM FINDINGS: Tubes, catheters and devices: A MediPort catheter is present with the tip projecting in the SVC. Lungs: Unremarkable. No consolidation. Pleural spaces: Unremarkable. No pleural effusion. No pneumothorax. Heart/Mediastinum: Unremarkable. No cardiomegaly. Bones/joints: Unremarkable. XR/XR chest 1V portable [id number] IMPRESSION: No significant cardiopulmonary abnormality.
--- NOTE | 2022-04-25 09:57 | P.HP_ITS ---
Providers/Chief Complaint Admitting Physician: Vamsi Urrutia MD Primary Care Provider: Robert Floyd MD Chief Complaint: Generalized Weakness History of Present Illness Kendall Camejo is a 82 year old male who presents to the hospital with complaints of fatigue. He has had significant low energy for the last 2 days, with decreased urination, decreased oral intake including fluids. He has not had any fever. He recently had chemotherapy,R-CEOP, April 18. He received Neulasta with this on April 20. He reports no significant shortness of breath. There was some concern he had constipation. He has been urinating very frequently. did give him some stool softener and now he some loose stool. When he was constipated he forced to stool out had a little bit of bright red blood, but has not seen any since. His last transfusion was on April 11. Review of Systems General: Reports: 10 or more systems reviewed and unremarkable except in HPI and below Const: Reports: fatigue and malaise; Denies: fever(s) or chills Eyes: Denies: change in vision ENMT: Denies: throat pain Card: Denies: chest pain Resp: Denies: dyspnea GI: Reports: other (Anorexia); Denies: abdominal pain, nausea or vomiting : Reports: urinary frequency; Denies: flank pain Musc: Denies: neck pain Skin/Breast: Denies: rash Neuro: Denies: headache(s) Psych: Denies: anxiety or depression Endo: Denies: polyuria Mauricio/Lymph: Denies: easy bruising All/Imm: Denies: urticaria Medications/Allergies Home Medications Medication Instructions Recorded Confirmed Last Taken Type tamsulosin 0.4 mg capsule 0.4 mg PO QPM 07/01/19 04/18/22 01/10/22 History folic acid 1 mg tablet 1 mg PO QPM #90 tabs 01/04/22 04/18/22 01/10/22 Rx sulfamethoxazole 800 1 tab PO .ON MON,MON,Mon01/11/22 04/18/22 Unknown History mg-trimethoprim 160 mg tablet (Bactrim DS) pantoprazole 40 mg tablet,delayed 40 mg PO BID #14 tabs 01/22/22 04/18/22 01/11/22 14:30 Rx release (Protonix) sennosides 8.6 mg-docusate sodium 2 tab PO BID PRN 02/10/22 04/18/22 Unknown History 50 mg tablet (Senokot-S) hydrocodone 5 mg-acetaminophen 300 1 tab PO Q4H PRN pain 30 days #60 02/24/22 04/18/22 Unknown Rx mg tablet tabs furosemide 20 mg tablet 20 mg PO DAILY #30 tabs 03/14/22 04/18/22 Unknown Rx potassium chloride 10 mEq 10 meq PO BID #60 caps 03/14/22 04/18/22 Unknown Rx capsule,extended release L.acidoph, paracasei,B. lactis 10 See Rx Instructions PO DAILY 03/28/22 03/28/22 Unknown History billion cell capsule (Digestive Advantage Advanced Probiotic) meloxicam 15 mg tablet 15 mg PO DAILY #30 tabs 03/28/22 04/18/22 Unknown Rx ondansetron 4 mg disintegrating 4 mg PO Q8H PRN 03/28/22 04/18/22 Unknown History tablet valacyclovir 500 mg tablet 500 mg PO BID 03/28/22 04/18/22 Unknown History Allergies Allergy/AdvReac Type Severity Reaction Status Date / Time meperidine [From Demerol] Allergy Mild ADR/ALGY-Hy Verified 04/18/22 09:54 potension PFSH Acute PFSH: Medical History Bladder wall thickening BPH (benign prostatic hyperplasia) 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 Otoole S/P arthroscopic surgery of left knee S/P lymph node biopsy (11/17/21) Core needle biopsy of left supraclavicular lymph node Status post surgical removal of malignant neoplasm of skin Family History Father Cancer Brother Diabetes Denies family history of CAD (coronary artery disease) Clotting disorder Dementia Hyperlipidemia Psychiatric illness Chronic kidney disease (CKD) Suicide Anesthesia complication Bleeding disorder Family history of premature coronary artery disease Lung disease Hypertension Stroke Social History Smoking and tobacco status: never smoked Quit status (tobacco): has quit using tobacco Second hand smoke exposure: Yes Smoking risk assessment/counseling performed?: Yes Alcohol intake: never Desire information about alcohol rehabilitation?: No Counseling given: No Desire information about substance/drug rehabilitation?: No Counseling given: No Adopted: No Caregiver/support person: No Lives independently: Yes Household members: spouse Housing: Other Details: Rehabbing at [facility] Marital status: Current occupational status: retired Current occupational exposures/hazards: No History of recent travel: No Current gender identity: Male Vitals/I&O/Wt Last Vital Signs Temp 99.3 F 04/25/22 06:37 Pulse 102 H 04/25/22 06:37 Resp 16 04/25/22 06:37 BP 114/99 04/25/22 06:37 Pulse Ox 96 04/25/22 06:37 O2 Del Method 04/25/22 06:37 Weight last 48 hrs Weight 87.997 kg Physical Exam Narrative: General exam is a white male, no distress, tired appearing HEENT: Atraumatic normocephalic. Pupils equally round. Oropharynx clear. Neck is supple no lymphadenopathy thyromegaly Cardiovascular regular rate and rhythm without murmur, no S3 or S4 Lungs clear no wheezing or crackles Abdomen is soft nontender positive bowel sounds. No obvious organomegaly exams deferred Extremities show trace edema bilaterally. No cyanosis or clubbing. Skin no rash Neuro no obvious focal deficits. Data : 04/25/22 06:30 04/25/22 06:30 Other Labs: ANC is 600 INR 1.13 Calcium 8.6 LFTs normal Albumin 2.9 Urinalysis pending Chest x-ray no infiltrate Blood culture was obtained Micro: Microbiology 04/25/22 09:00 Blood Culture - Preliminary Blood SPECIMEN COLLECTED 04/25/22 07:04 Blood Culture - Preliminary Blood SPECIMEN COLLECTED A&P Assessment and plan (1) Neutropenia: Significant neutropenia, with ANC of 600. He is very fatigued, and having significant lower urinary tract symptoms. He has had a precipitous drop in his counts since last draw. There is concern his ANC will be less than 500, and he has a past culture of staph epidermidis in his blood in January. He has been receiving some p.o. antibiotic lately, I believe for prophylaxis. Cannot exclude infection/bacteremia at this time. Observation currently Urine and blood cultures IV antibiotics consisting of cefepime and vancomycin (2) Fatigue: Secondary to above (3) Lower urinary tract symptoms: Check urine culture and UA with micro Bladder scan (4) Anemia: (5) Thrombocytopenia: (6) Diffuse large B-cell lymphoma of extranodal site: Recently received chemotherapy, April 18 through Did receive Neulasta on the Plan Multiple other medical problems as outlined in past medical history Full code SCDs for DVT prophylaxis Attestations Medical Necessity Statement*: Will require less than 2 midnight stay for evaluation and treatment. If counts worsen, will need to be made regular admission. Coding Level of Care Code Acute Web Search Evaluator for g Fwd Diagnoses Neutropenia D70.9 Fatigue R53.83 Lower urinary tract symptoms R39.9 Anemia D64.9 Thrombocytopenia D69.6 Diffuse large B-cell lymphoma of extranodal site C83.39
[2022-04-25] MEDS: cefepime 2,000 MG in sodium chloride 0.9% (plus) 50 ML 100 MG IV ×2 (11:48→21:40)
[2022-04-25] MEDS: sodium chloride 0.9% 1,000 ML 50 ML IV (13:28)
[2022-04-25] MEDS: vancomycin 1,500 MG/300 ML PIGGYBACK 200 MG IV ×2 (13:28→22:25)
[2022-04-25 13:32] LABS: Add Urine Microscopic? NO; Charge for UA Resulting for Rev
[2022-04-25 13:45] LABS: Bilirubin Urine Neg (Negative); Blood Urine Neg (Negative); Glucose Urine UA Norm (Normal); Ketones Urine Negative (Negative); Leukocyte Esterase Urine Negative (Negative); Nitrate Urine Negative (Negative); Protein Urine Neg (Negative); Urine Appearance Clear (CLEAR); Urine Color Dark Yellow (Yellow); Urobilinogen Urine Neg (Negative); pH Urine 6 (5-7)
[2022-04-25] MEDS: tamsulosin 0.4 mg Capsule PO (18:23)
[2022-04-25] MEDS: pantoprazole DR 40 mg Tablet PO (18:23)
--- NOTE | 2022-04-25 19:28 | PC.NURSE ---
Shift report/handoff given to Lauren Myers LPN and Jeane Thornton RN.
--- NOTE | 2022-04-25 20:42 | PC.NURSE ---
PATIENT A&O, VSS. PATIENT FREQUENTLY NEEDS UP TO URINATE BUT CAN ONLY PRODUCE SMALL AMOUNTS AT TIME. PATIENT'S ANKLE/FEET 2+ PITTING EDEMA. PEDAL PULSE PALPATED AND MARKED ON LEFT FOOT, UNABLE TO PALPATE RIGHT PEDAL PULSE. BOTH FEET WARM AND PINK. PATIENT REPORTS MILD PAIN IN UPPER SHOULDERS. NO FURTHER NEEDS AT THIS TIME.
[2022-04-25] MEDS: acetaminophen 325 mg Tablet 650 MG PO (22:25)
--- NOTE | 2022-04-25 22:39 | PC.NURSE ---
PATIENT ROUNDED ON AND ASSISTED TO BARROW WORKER ORDER TO USE URINAL. PATIENT STATED FRUSTRATION DUE TO URINARY FREQUENCY. PATIENT ASSISTED BACK INTO BED AND INTO COMFORTABLE POSITION. VANCOMYCIN HUNG, IV SITE INSPECTED AND APPEARED PATENT AND ASYMPTOMATIC. PATIENT REPORTED NO FURTHER NEEDS AT THIS TIME.
[2022-04-26] VITALS (17 sets, daily range): BP systolic 99–130; BP diastolic 54–74; PULSE 70–89; RESP 13–20; TEMP 36.6–37.2; O2SAT 93–98
[2022-04-26 05:18] LABS: Eosinophils % 3.6 %; Hematocrit 23.6 % (42.0-52.0); Hemoglobin 7.5 g/dL (11.7-16.6); Lymphocytes % 3.6 %; Mean Corpuscular HGB Conc 31.8 g/dL (30.0-36.0); Mean Corpuscular Hemoglobin 32.2 pg (28.0-34.0); Mean Corpuscular Volume 101.3 fl (80-94); Monocytes # 0.1 10^3/uL (0.2-0.9); Monocytes % 39.3 %; Neutrophils % 35.6 %; Nucleated Red Blood Cells % 0 %; Red Blood Count 2.33 10^6/uL (4.1-5.3); Red Cell Distribution Width 18.4 % (12.1-15.1)
[2022-04-26 05:22] LABS: White Blood Count 0.3 10^3/uL (4.0-10.0)
[2022-04-26 05:26] LABS: Platelet Count 10 10^3/cmm (130-400)
[2022-04-26 05:39] LABS: Alanine Aminotransferase 6 U/L (0-41); Albumin Level 2.6 g/dL (3.5-5.2); Alkaline Phosphatase 66 U/L (40-130); Anion Gap 13.1 (5-19); Aspartate Amino Transferase 6 U/L (0-40); Blood Urea Nitrogen 15 mg/dL (8-23); Calcium 8.3 mg/dL (8.5-10.5); Carbon Dioxide 24 mmol/L (22-29); Chloride 99 mmol/L (98-107); Globulin 1.5 g/dL (1.3-4.6); Glucose 106 mg/dL (65-115); Magnesium 1.6 mg/dL (1.7-2.3); Osmolality Calculated 277 mOsm/kg (285-295); Potassium 3.1 mmol/L (3.5-5.1); Sodium 133 mmol/L (136-145); Total Bilirubin 0.7 mg/dL (0.15-1.2); Total Protein 4.1 g/dL (6.6-8.7)
--- NOTE | 2022-04-26 06:04 | PC.NURSE ---
SHIFT SUMMARY Pt is very weak but some improvement through the night. Getting up to bedside or BSC to urinate. 1-2 assist and using walker does fair. Urinates freq with amts from 100-250ml at a time. Says he has been having problems with this for awhile now but worse since chemo. Is on Reverse isolation with critical values of WBC, platelets and ANC.
--- NOTE | 2022-04-26 09:26 | P.PN_ITS ---
Subjective Subjective: Kendall reports he feels little better today. May have a little more energy. No pain. Still feels cold. Medications: Reviewed: Yes Vitals/I&O/Wt Last Vital Signs Temp 98.3 F 04/26/22 08:00 Pulse 74 04/26/22 08:00 Resp 17 04/26/22 08:00 BP 113/71 04/26/22 08:00 Pulse Ox 95 04/26/22 08:00 O2 Del Method 04/26/22 08:00 04/25/22 04/26/22 04/26/22 22:59 06:59 14:59 Intake Total 350 / 1640 450 / 2090 Output Total 450 / 450 825 / 1275 Balance -100 / 1190 -375 / 815 Weight last 48 hrs Weight 92.533 kg Weight 87.997 kg Physical Exam Narrative: General exam no distress. Neck is supple no lymphadenopathy thyromegaly Cardiovascular regular rate and rhythm without murmur, no S3 or S4 Lungs clear no wheezing or crackles Abdomen is soft nontender positive bowel sounds. No obvious organomegaly Extremities show trace edema bilaterally. No cyanosis or clubbing. Skin no rash Data : 04/26/22 04:41 04/26/22 04:41 Micro: Microbiology 04/25/22 09:00 Blood Culture - Preliminary Blood NEGATIVE TO DATE 04/25/22 07:04 Blood Culture - Preliminary Blood NEGATIVE TO DATE A&P Assessment and plan (1) Neutropenia: Significant neutropenia. ANC slightly higher today at 1000. Hopefully this will increase further tomorrow. He is very fatigued, and having significant lower urinary tract symptoms. Changed to regular admission Urine and blood cultures negative at this time. Urinalysis was not obvious for infection IV antibiotics consisting of cefepime and vancomycin (2) Fatigue: Secondary to above (3) Lower urinary tract symptoms: UA negative (4) Anemia: Worsened today with hemoglobin of 7.5. Transfuse 1 unit packed red blood cells considering his severe thrombocytopenia (5) Thrombocytopenia: Platelet count has dropped significantly. Platelet transfusion ordered. Recheck counts following transfusion as well as tomorrow (6) Diffuse large B-cell lymphoma of extranodal site: Recently received chemotherapy, April 18 through Did receive Neulasta on the Plan Hypokalemia, supplement Hypomagnesemia, supplement multiple other medical problems as outlined in past medical history Full code SCDs for DVT prophylaxis Attestations Medical Necessity Statement*: Needs continued hospitalization secondary to pancytopenia with significant reduction in platelet count and need for transfusion as well as empiric antibiotics until cultures are negative. Coding Level of Care Code Acute Doughnut Icer Machine for Chg Fwd Diagnoses Neutropenia D70.9 Fatigue R53.83 Lower urinary tract symptoms R39.9 Anemia D64.9 Thrombocytopenia D69.6 Diffuse large B-cell lymphoma of extranodal site C83.39
[2022-04-26] MEDS: pantoprazole DR 40 mg Tablet PO ×2 (09:27→17:14)
[2022-04-26] MEDS: potassium chloride ER 20 mEq Tablet 40 MEQ PO (09:27)
[2022-04-26] MEDS: magnesium sulfate premix 2 GM/50 ML PIGGYBACK IV (09:27)
[2022-04-26] MEDS: cefepime 2,000 MG in sodium chloride 0.9% (plus) 50 ML 100 MG IV ×2 (09:28→23:00)
[2022-04-26] MEDS: vancomycin 1,500 MG/300 ML PIGGYBACK 200 MG IV (09:33)
[2022-04-26] MEDS: acetaminophen 325 mg Tablet 650 MG PO (09:48)
[2022-04-26] MEDS: sodium chloride 0.9% (100 ml) 100 ML ×2 (15:45→17:12)
[2022-04-26] MEDS: tamsulosin 0.4 mg Capsule PO (17:14)
--- NOTE | 2022-04-26 19:06 | PC.NURSE ---
BEDSIDE REPORT TAKEN FROM MADDIE RN. PATIENT RESTING IN BED, A&O, VSS. SPOUSE AT BEDSIDE. PATIENT REPORTED NO NEEDS AT THIS TIME.
[2022-04-26 21:45] LABS: Vancomycin Trough 17.6 ug/mL (10-15)
[2022-04-26] MEDS: vancomycin 1,500 MG/300 ML PIGGYBACK 150 MG IV (23:27)
[2022-04-27] VITALS (21 sets, daily range): BP systolic 91–133; BP diastolic 45–71; PULSE 80–95; RESP 14–18; TEMP 36.4–37.3; O2SAT 93–98
[2022-04-27 01:58] LABS: Basophils % 0.7 %; Eosinophils % 2.1 %; Hematocrit 21.9 % (42.0-52.0); Hemoglobin 7.1 g/dL (11.7-16.6); Lymphocytes # 0.1 10^3/uL (0.8-4.8); Lymphocytes % 3.4 %; Mean Corpuscular HGB Conc 32.4 g/dL (30.0-36.0); Mean Corpuscular Hemoglobin 31.6 pg (28.0-34.0); Mean Corpuscular Volume 97.3 fl (80-94); Mean Platelet Volume 11.1 fL (7.4-10.4); Monocytes # 0.3 10^3/uL (0.2-0.9); Monocytes % 19.2 %; Neutrophils % 66.4 %; Nucleated Red Blood Cells % 0 %; Platelet Count 85 10^3/cmm (130-400); Red Blood Count 2.25 10^6/uL (4.1-5.3); Red Cell Distribution Width 18.6 % (12.1-15.1); White Blood Count 1.5 10^3/uL (4.0-10.0)
[2022-04-27 02:21] LABS: Neutrophils # 0.97 10^3/uL (1.8-7.7)
[2022-04-27 02:27] LABS: Alanine Aminotransferase 7 U/L (0-41); Albumin Level 2.5 g/dL (3.5-5.2); Alkaline Phosphatase 58 U/L (40-130); Anion Gap 12.4 (5-19); Aspartate Amino Transferase 7 U/L (0-40); Blood Urea Nitrogen 14 mg/dL (8-23); Calcium 7.9 mg/dL (8.5-10.5); Carbon Dioxide 25 mmol/L (22-29); Chloride 101 mmol/L (98-107); Globulin 1.5 g/dL (1.3-4.6); Glucose 99 mg/dL (65-115); Magnesium 1.9 mg/dL (1.7-2.3); Osmolality Calculated 281 mOsm/kg (285-295); Potassium 3.4 mmol/L (3.5-5.1); Sodium 135 mmol/L (136-145); Total Bilirubin 0.6 mg/dL (0.15-1.2)
[2022-04-27] MEDS: potassium chloride ER 20 mEq Tablet 40 MEQ PO ×2 (07:01→12:25)
--- NOTE | 2022-04-27 07:29 | PC.NURSE ---
BEDSIDE REPORT GIVEN TO CECILIO MEJÍA AND BHARGAV BROOKSN. PATIENT UP TO CHAIR, CALL LIGHT AVAILABLE, BEDSIDE TABLE WITHIN REACH. PATIENT INSTRUCTED TO USE CALL LIGHT BEFORE ATTEMPTING TO GET UP.
--- NOTE | 2022-04-27 09:05 | USCV_ITS ---
Kendall Camejo Age: 82 Gender: M : 1940 Exam Date: 04/27/2022 10:11 Ordering Phys: Vamsi Urrutia MD Technologist: DHARMESH Exam Location: [facility] – [place] Indication: Positive Blood Culture BP: 133 / 71 HR: 80 Rhythm: Sinus Technical Quality: Suboptimal MEASUREMENTS (Male / Female) Normal Values 2D ECHO LVOT Diameter 2.0 cm LV Ejection Fraction MOD 2C 61.4 % LV Ejection Fraction 2C AL 64.1 % LA Diameter 3.7 cm LA Width 3.6 cm LA Height 5.2 cm RA Width 2.8 cm RA Height 5.7 cm Aorta at Sinotubular Diameter 2.3 cm M-MODE Aortic Annulus Diameter 3.2 cm LA Ao Ratio MM 1.1 MV E Point Septal Separation 1.1 cm DOPPLER AV Peak Velocity 233.8 cm/s LVOT Peak Velocity 130.0 cm/s AV Area Cont Eq vti 1.8 cm squared AV Area Cont Eq pk 1.7 cm squared MV Peak Velocity 115.0 cm/s MV Area PHT 3.7 cm squared Mitral E to A Ratio 0.7 MV E' Velocity 47.5 cm/s Mitral E to MV E' Ratio 8.0 Mitral E to LV E' Lateral Ratio 6.5 Mitral E to LV E' Septal Ratio 10.5 TR Peak Velocity 181.9 cm/s TR Peak Gradient 13.2 mmHg TR Mean Velocity 152.9 cm/s TR Mean Gradient 9.6 mmHg TR Velocity Time Integral 38.9 cm TV Peak E Velocity 50.0 cm/s Right Atrial Pressure 8.0 mmHg Pulmonary Artery Systolic Pressu 21.2 mmHg PV Peak Velocity 80.0 cm/s RV Acceleration Time 0.1 s RV Ejection Time 0.2 s RV AcT/ET 0.4 FINDINGS Left Ventricle Normal left ventricular size, systolic function and wall thickness, with no regional wall motion abnormalities. Grade I/IV diastolic dysfunction (abnormal relaxation filling pattern), normal to mildly elevated filling pressures. Left ventricular ejection fraction is estimated at 60 %. Right Ventricle Normal right ventricular size and systolic function. Right Atrium Mildly increased right atrial size. Left Atrium Mildly increased left atrial size. Mitral Valve Structurally normal mitral valve without significant stenosis or prolapse. There is no mitral regurgitation. Aortic Valve Structurally normal trileaflet aortic valve. Mild aortic valve calcification. Mild aortic valve stenosis, mean gradient 9.6 mmHg, JULIETH 1.8 cm squared. Mild aortic valve regurgitation. Tricuspid Valve Structurally normal tricuspid valve. Trace tricuspid valve regurgitation. Pulmonic Valve Pulmonic valve not well visualized. Pericardium Normal pericardium without effusion. Aorta Normal ascending aorta dimension. IVC The inferior vena cava appears normal. CONCLUSIONS Normal left ventricular size, systolic function and wall thickness, with no regional wall motion abnormalities. Grade I/IV diastolic dysfunction (abnormal relaxation filling pattern), normal to mildly elevated filling pressures. Left ventricular ejection fraction is estimated at 60 %. Mildly increased right atrial size. Mildly increased left atrial size. Structurally normal trileaflet aortic valve. Mild aortic valve calcification. Mild aortic valve stenosis, mean gradient 9.6 mmHg, JULIETH 1.8 cm squared. Mild aortic valve regurgitation. 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 Dr. Aleksander Fitzgerald MD (Electronically Signed) Final Date: 27 April 2022 15:11 S
--- NOTE | 2022-04-27 09:09 | P.PN_ITS ---
Subjective Subjective: Feels better. Less chilling. No fever. Still not very hungry. Medications: Reviewed: Yes Vitals/I&O/Wt Last Vital Signs Temp 97.8 F 04/27/22 08:00 Pulse 81 04/27/22 08:00 Resp 18 04/27/22 08:00 BP 133/71 04/27/22 08:00 Pulse Ox 97 04/27/22 08:00 O2 Del Method 04/27/22 08:00 04/26/22 04/27/22 04/27/22 22:59 06:59 14:59 Intake Total 546.467 / 2387.467 590 / 2977.467 Output Total 1125 / 1125 575 / 1700 Balance -578.533 / 1262.467 15 / 1277.467 Weight last 48 hrs Weight 92.533 kg Physical Exam Narrative: General exam no distress. Neck is supple no lymphadenopathy thyromegaly Cardiovascular regular rate and rhythm without murmur, no S3 or S4. Port without erythema Lungs clear no wheezing or crackles Abdomen is soft nontender positive bowel sounds. No obvious organomegaly Extremities show trace edema bilaterally. No cyanosis or clubbing. Skin no rash Data : 04/27/22 01:41 04/27/22 01:41 Micro: Microbiology 04/27/22 07:50 Blood Culture - Preliminary Blood SPECIMEN COLLECTED 04/27/22 07:50 Blood Culture - Preliminary Blood SPECIMEN COLLECTED 04/25/22 07:04 Blood Culture - Preliminary Blood 04/25/22 09:00 Blood Culture - Preliminary Blood A&P Assessment and plan (1) Neutropenia: Significant neutropenia. White blood cell count has increased to 1.5, with an ANC of 970. Counts seem to be recovering. Urine and blood cultures negative at this time. Urinalysis was not obvious for infection IV antibiotics consisting of cefepime and vancomycin Blood cultures 3 out of 4 bottles now with gram-positive cocci in clusters and small gram-positive rods. From talking to micro it appears to out of 4 bottles are with the cocci, likely coag negative staph that were drawn out of the port and 3 out of 4 bottles appear to have small gram-positive rods consistent with corynebacterium. Both organisms however are yet to be identified. Further information will be available tomorrow. Secondary to this finding we will get an infectious disease consult Consult surgery regarding removal of port. Notified his oncologist as well. Make sure he has peripheral access. Hopefully we can bridge time to PICC with just peripheral IVs. Transthoracic echo today to look for valvular lesions. If any are seen, he may not need a JOE. If none are seen JOE will be arranged for. (2) Fatigue: Secondary to above Improving (3) Lower urinary tract symptoms: UA negative (4) Anemia: Blood transfusion today. Hemoglobin 7.1. No obvious active bleeding. (5) Thrombocytopenia: Following platelet transfusion on April 26, platelet count has rebounded to 85,000. (6) Diffuse large B-cell lymphoma of extranodal site: Recently received chemotherapy, April 18 through Did receive Neulasta on the Plan Hypokalemia, supplement Hypomagnesemia, supplemented and normal today multiple other medical problems as outlined in past medical history Full code SCDs for DVT prophylaxis Attestations Medical Necessity Statement*: Needs continued hospital stay for IV antibiotics secondary to positive blood culture in this previously neutropenic patient with concern of port infection. Coding Level of Care Code Acute Internist Medical Doctor Md for [facility] Fwd Diagnoses Neutropenia D70.9 Fatigue R53.83 Lower urinary tract symptoms R39.9 Anemia D64.9 Thrombocytopenia D69.6 Diffuse large B-cell lymphoma of extranodal site C83.39
[2022-04-27] MEDS: acetaminophen 325 mg Tablet 650 MG PO ×2 (09:43→20:45)
[2022-04-27] MEDS: pantoprazole DR 40 mg Tablet PO ×2 (10:03→17:00)
[2022-04-27] MEDS: polyethylene glycol 3350 Pkt 17 gm PO (10:03)
[2022-04-27] MEDS: cefepime 2,000 MG in sodium chloride 0.9% (plus) 50 ML 100 MG IV ×2 (11:24→23:18)
[2022-04-27] MEDS: sodium chloride 0.9% (100 ml) 100 ML 75 ML ×2 (12:18→17:01)
[2022-04-27] MEDS: vancomycin 1,500 MG/300 ML PIGGYBACK 200 MG IV ×2 (12:21→23:52)
--- NOTE | 2022-04-27 14:20 | P.CONIM_ITS ---
Providers/Reason For Consult Consulting Physician/Specialty*: Dr. Dereck Sneed, DO/General surgery Reason for Consult*: Mediport removal Attending Physician: Vamsi Urrutia MD Primary Care Provider: Robert Floyd MD History of Present Illness History of Present Illness Kendall Camejo is a 82 year old male, with diffuse large B-cell lymphoma, was found to be bacteremic and has a Mediport in place for chemotherapy. He is currently in the hospital with neutropenia. He denies any significant pain, nausea, emesis, diarrhea or constipation. General surgery was consulted for Mediport removal. Review of Systems General: Reports: 10 or more systems reviewed and unremarkable except in HPI and below Medications/Allergies Home Medications Medication Instructions Recorded Confirmed Last Taken Type tamsulosin 0.4 mg capsule 0.4 mg PO QPM 07/01/19 04/25/22 01/10/22 History folic acid 1 mg tablet 1 mg PO QPM #90 tabs 01/04/22 04/25/22 01/10/22 Rx sulfamethoxazole 800 1 tab PO .ON MON,MON,Mon01/11/22 04/25/22 Unknown History mg-trimethoprim 160 mg tablet (Bactrim DS) pantoprazole 40 mg tablet,delayed 40 mg PO BID #14 tabs 01/22/22 04/25/22 01/11/22 14:30 Rx release (Protonix) sennosides 8.6 mg-docusate sodium 2 tab PO BID PRN Constipation 02/10/22 04/25/22 Unknown History 50 mg tablet (Senokot-S) hydrocodone 5 mg-acetaminophen 300 1 tab PO Q4H PRN pain 30 days #60 02/24/22 Unknown Rx mg tablet tabs furosemide 20 mg tablet 20 mg PO DAILY #30 tabs 03/14/22 04/25/22 Unknown Rx potassium chloride 10 mEq 10 meq PO BID #60 caps 03/14/22 04/25/22 Unknown Rx capsule,extended release L.acidoph, paracasei,B. lactis 10 10 cell PO DAILY 03/28/22 04/25/22 Unknown History billion cell capsule (Digestive Advantage Advanced Probiotic) meloxicam 15 mg tablet 15 mg PO DAILY #30 tabs 03/28/22 04/25/22 Unknown Rx ondansetron 4 mg disintegrating 4 mg PO Q8H PRN Nausea And Vomiting 03/28/22 04/25/22 Unknown History tablet valacyclovir 500 mg tablet 500 mg PO BID 03/28/22 04/25/22 Unknown History cephalexin 500 mg capsule 500 mg PO BID 04/25/22 04/25/22 Unknown History fluconazole 100 mg tablet See Rx Instructions .Route .COMPLEX 04/25/22 04/25/22 Unknown History Allergies Allergy/AdvReac Type Severity Reaction Status Date / Time meperidine [From Demerol] Allergy Mild ADR/ALGY-Hy Verified 04/25/22 12:06 potension Current Medications Generic Name Dose Route Start Last Admin Trade Name Freq PRN Reason Stop Dose Admin Acetaminophen 650 mg 04/25/22 12:21 04/27/22 09:43 Acetaminophen 325 Mg Tablet PO 650 mg Q6H PRN Administration Mild/Mod Pain Or Temp >/= 101 Cefepime HCl 2,000 mg/ Sodium 50 mls @ 100 mls/hr 04/25/22 10:00 04/27/22 11:24 Chloride IV 100 mls/hr Q12H REJI Administration Protocol Vancomycin/PEG/NADA/Lysine/Water 1,500 mg in 300 mls @ 200 mls/hr 04/25/22 10:30 04/27/22 12:21 Vancocin IV 200 mls/hr Q12H REJI Administration Non-Formulary Medication 500 mg 04/25/22 18:00 04/27/22 10:03 Valacyclovir PO 500 mg BID REJI Administration Pantoprazole Sodium 40 mg 04/25/22 18:00 04/27/22 10:[address] 40 Mg Tablet PO 40 mg BID REJI Administration Polyethylene Glycol 17 gm 04/27/22 09:20 04/27/22 10:03 Polyethylene Glycol 3350 Pkt 17 Gm PO 17 gm DAILY REJI Administration Tamsulosin HCl 0.4 mg 04/25/22 18:00 04/26/22 17:14 Tamsulosin 0.4 Mg Capsule PO 0.4 mg QPM REJI Administration PFSH Acute PFSH: Medical History Bladder wall thickening BPH (benign prostatic hyperplasia) 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 Otoole S/P arthroscopic surgery of left knee S/P lymph node biopsy (11/17/21) Core needle biopsy of left supraclavicular lymph node Status post surgical removal of malignant neoplasm of skin Family History Father Cancer Brother Diabetes Denies family history of CAD (coronary artery disease) Clotting disorder Dementia Hyperlipidemia Psychiatric illness Chronic kidney disease (CKD) Suicide Anesthesia complication Bleeding disorder Family history of premature coronary artery disease Lung disease Hypertension Stroke Social History Smoking and tobacco status: never smoked Quit status (tobacco): has quit using tobacco Second hand smoke exposure: Yes Smoking risk assessment/counseling performed?: Yes Alcohol intake: never Desire information about alcohol rehabilitation?: No Counseling given: No Desire information about substance/drug rehabilitation?: No Counseling given: No Adopted: No Caregiver/support person: No Lives independently: Yes Household members: spouse Housing: Other Details: Rehabbing at [facility] Marital status: Current occupational status: retired Current occupational exposures/hazards: No History of recent travel: No Current gender identity: Male Vitals/I&O/Wt Last Vital Signs Temp 97.6 F 04/27/22 11:37 Pulse 80 04/27/22 12:00 Resp 18 04/27/22 12:00 BP 105/45 04/27/22 12:00 Pulse Ox 96 04/27/22 12:00 O2 Del Method 04/27/22 12:00 04/26/22 04/27/22 04/27/22 22:59 06:59 14:59 Intake Total 546.467 / 2387.467 590 / 2977.467 0 / 0 Output Total 1125 / 1125 575 / 1700 150 / 150 Balance -578.533 / 1262.467 15 / 1277.467 -150 / -150 Physical Exam Narrative: General : Patient is well developed , no acute distress, oriented x3 Head : Normal cephalic, a-traumatic. Ears : Pinnae and external canal are normal. Hearing is normal. Eyes : PERRLA, Sclera and injection are normal. No conjunctival discharge. Nose : Mucous membranes are without erythema. Throat : buccal mucosa is normal, gums are without significant recession or hypertrophy. Lungs : Equal chest rise bilaterally, no use of accessory muscles, trachea is midline. Cor : Rate and rhythm are normal. Abdomen : Soft, ND, NT, no g/r/m Extremities : No edema, no cyanosis or clubbing, dorsalis pedis pulses are present bilaterally, non-tender to palpation of calves. Upper extremities are normal bilaterally. Back : non-tender to palpation, no CVA tenderness. Neuro : CN II - XII intact, Upper and lower extremities have equal and full strength Data : 04/28/22 02:14 04/28/22 02:14 Micro: Microbiology 04/25/22 13:25 Urine Culture - Final Urine,Voided 04/27/22 07:50 Blood Culture - Preliminary Blood SPECIMEN COLLECTED 04/27/22 07:50 Blood Culture - Preliminary Blood SPECIMEN COLLECTED 04/25/22 07:04 Blood Culture - Preliminary Blood 04/25/22 09:00 Blood Culture - Preliminary Blood A&P Assessment and plan (1) Bacteremia: (2) Neutropenia: (3) Diffuse large B-cell lymphoma of extranodal site: Plan N.p.o. after midnight 2 OR tomorrow for removal of Mediport The risks and benefits of the procedure, including but not limited to, bleeding, infection at the site, scar, numbness, pain, or explained to the patient. He is understanding of the risks and wishes to proceed. He still has 1 more treatment course of chemotherapy. I am available for future Mediport placement if necessary. 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
[2022-04-27] MEDS: FUROsemide 10 mg/mL SDV 2mL 20 MG IVP (14:53)
[2022-04-27] MEDS: tamsulosin 0.4 mg Capsule PO (17:00)
[2022-04-28] VITALS (15 sets, daily range): BP systolic 111–189; BP diastolic 51–87; PULSE 76–100; RESP 17–20; TEMP 36.4–36.9; O2SAT 91–100
--- NOTE | 2022-04-28 01:13 | PC.NURSE ---
Respiratory Patient is short of breath with activity.
[2022-04-28 03:20] LABS: Anion Gap 11.6 (5-19); Blood Urea Nitrogen 13 mg/dL (8-23); Calcium 8.3 mg/dL (8.5-10.5); Carbon Dioxide 25 mmol/L (22-29); Chloride 102 mmol/L (98-107); Glucose 99 mg/dL (65-115); Osmolality Calculated 280 mOsm/kg (285-295); Potassium 3.6 mmol/L (3.5-5.1); Sodium 135 mmol/L (136-145)
[2022-04-28 03:51] LABS: Mean Corpuscular HGB Conc 32.6 g/dL (30.0-36.0); Mean Corpuscular Hemoglobin 30.6 pg (28.0-34.0); Mean Platelet Volume 11.7 fL (7.4-10.4); Platelet Count 87 10^3/cmm (130-400); Red Blood Count 3.17 10^6/uL (4.1-5.3); Red Cell Distribution Width 18.8 % (12.1-15.1); White Blood Count 5.9 10^3/uL (4.0-10.0)
[2022-04-28 04:24] LABS: Hematocrit 29.8 % (42.0-52.0); Hemoglobin 9.7 g/dL (11.7-16.6)
[2022-04-28 04:29] LABS: Band Neutrophils Absolute 0.8 10^3/cmm (0.0-1.2); Lymphocytes 3 %; Segmented Neutrophils 67 %; Total Cells Counted 100 (0-100)
[2022-04-28 04:30] LABS: Absolute Neutrophil 4.8 10^3/cmm (1.4-6.5); Anisocytosis 2+; Eosinophils 0 %; Giant Platelets 1+; Lymphocytes Absolute 0.2 10^3/cmm (1.2-3.4); Monocytes Absolute 0.8 10^3/cmm (0.1-0.6); Platelet Estimate Decreased (Normal)
[2022-04-28 04:31] LABS: Polychromasia Trace; Toxic Vacuolation 2+
--- NOTE | 2022-04-28 09:40 | PM.PN ---
Subjective Subjective: Kendall reports he is feeling tired today. He is ready to get his port out. Infectious disease saw him last night and has given me some recommendations, and follow-up plans. He denies any chest pain or shortness of breath. Medications: Reviewed: Yes Vitals/I&O/Wt Last Vital Signs Temp 97.6 F 04/28/22 07:39 Pulse 78 04/28/22 07:39 Resp 18 04/28/22 07:39 BP 111/51 04/28/22 07:39 Pulse Ox 94 04/28/22 07:39 O2 Del Method 04/28/22 07:39 04/27/22 04/28/22 04/28/22 22:59 06:59 14:59 Intake Total 1050 / 1050 1000 / 2050 Output Total 200 / 350 800 / 1150 300 / 300 Balance 850 / 700 200 / 900 -300 / -300 Physical Exam Narrative: General exam no distress. Neck is supple no lymphadenopathy thyromegaly Cardiovascular regular rate and rhythm without murmur, no S3 or S4. Port without erythema Lungs clear no wheezing or crackles Abdomen is soft nontender positive bowel sounds. No obvious organomegaly Extremities show trace edema bilaterally. No cyanosis or clubbing. Skin no rash Data : 04/28/22 02:14 04/28/22 02:14 Micro: Microbiology 04/27/22 07:50 Blood Culture - Preliminary Blood NEGATIVE TO DATE 04/27/22 07:50 Blood Culture - Preliminary Blood NEGATIVE TO DATE 04/25/22 07:04 Blood Culture - Preliminary Blood Staphylococcus sp coag neg Corynebacterium species 04/25/22 09:00 Blood Culture - Preliminary Blood Staphylococcus sp coag neg Corynebacterium species 04/25/22 13:25 Urine Culture - Final Urine,Voided A&P Assessment and plan (1) Neutropenia: Counts recovering nicely Currently on cefepime and vancomycin Blood cultures 3 out of 4 bottles now with coag negative staph and corynebacterium. He had staph epidermis grew in January. Appreciate infectious disease consult Surgery consult today to remove port secondary to bacteremia Probable PICC line tomorrow if repeat cultures remain negative as they are today Plan for 6 weeks of IV antibiotics currently, hopefully daptomycin. We will try to certify through insurance. Transthoracic echo did not demonstrate any large vegetation (2) Fatigue: Secondary to above Improving (3) Lower urinary tract symptoms: UA negative (4) Anemia: Received 3 units of packed red blood cells while in the hospital. Hemoglobin improved today and 9.7 (5) Thrombocytopenia: Received 2 units of platelets in the hospital. Platelet count stable currently. (6) Diffuse large B-cell lymphoma of extranodal site: Recently received chemotherapy, April 18 through Did receive Neulasta on the Plan Hypokalemia, resolved Hypomagnesemia, resolved multiple other medical problems as outlined in past medical history Full code SCDs for DVT prophylaxis Hopefully can arrange outpatient IV antibiotics, have port removed and PICC placed and discharge tomorrow. Attestations Medical Necessity Statement*: Needs continued hospitalization for IV antibiotics secondary to bacteremia, removal of port today. Coding Level of Care Code Acute Agriculture Intern for [facility] Fwd Diagnoses Neutropenia D70.9 Fatigue R53.83 Lower urinary tract symptoms R39.9 Anemia D64.9 Thrombocytopenia D69.6 Diffuse large B-cell lymphoma of extranodal site C83.39
--- NOTE | 2022-04-28 10:39 | W.PM.OPSUD ---
Surgery/Procedure H&P Update DATE OF PROCEDURE: April 28, 2022 DATE H&P PERFORMED: 04/27/22 PREOP DIAGNOSIS: bacteremia PLANNED PROCEDURE: Operation Date: 04/28/22 10:50 Proposed Procedures p Portacath Removal(Right) - Dereck Sneed DO
[2022-04-28] MEDS: cefepime 2,000 MG in sodium chloride 0.9% (plus) 50 ML 100 MG IV ×2 (11:51→21:07)
--- NOTE | 2022-04-28 12:50 | PM.OP ---
Operative Report Date of procedure: April 28, 2022 Pre-op diagnosis: Preop Diagnosis bacteremia Post-op diagnosis: same Procedure done: Mediport removal Specimens removed/disposition: Mediport Pathology: Catheter tip sent to pathology Surgeon: Dr. Dereck Sened DO Anesthesia: Local Estimated blood loss (mL): 5 Complications: None parent Brief History: This is a very pleasant 82-year-old gentleman undergoing chemotherapy for diffuse large B-cell lymphoma, who developed bacteremia. Mediport removal was indicated. The risks and benefits were explained and documented. Procedure: Patient was taken to the operating room and her right chest was prepped and draped in a sterile manner. 20 mL of 1% lidocaine with epinephrine was infiltrated around the MediPort. Using a 15 blade the previous incision was opened, the subcutaneous tissue was divided using electrocautery and MediPort along the catheter was dissected free from the surrounding subcutaneous tissue and removed entirely. A [id number] stitch was placed and the catheter tract with 3-0 Vicryl. The wound was irrigated with saline, hemostasis ensured with electrocautery and subcutaneous tissue was loosely approximated using 3-0 Vicryl suture. 4x4 and sterile dressings were used as a pressure dressing. The patient was transferred to the recovery room in stable condition. The MediPort tip was sent to pathology
[2022-04-28] MEDS: tamsulosin 0.4 mg Capsule PO (16:35)
[2022-04-28] MEDS: vancomycin 1,500 MG/300 ML PIGGYBACK 200 MG IV (16:35)
[2022-04-28] MEDS: pantoprazole DR 40 mg Tablet PO (16:35)
[2022-04-29] VITALS: BP 109/62; PULSE 91; RESP 16; TEMP 36.8; O2SAT 96
[2022-04-29 02:55] LABS: Basophils # 0.1 10^3/uL (0.0-0.1); Basophils % 0.7 %; Eosinophils % 0.1 %; Hematocrit 28.2 % (42.0-52.0); Hemoglobin 9.1 g/dL (11.7-16.6); Lymphocytes # 0.2 10^3/uL (0.8-4.8); Lymphocytes % 1.7 %; Mean Corpuscular HGB Conc 32.3 g/dL (30.0-36.0); Mean Corpuscular Hemoglobin 30.6 pg (28.0-34.0); Mean Corpuscular Volume 94.9 fl (80-94); Mean Platelet Volume 11.6 fL (7.4-10.4); Monocytes # 0.7 10^3/uL (0.2-0.9); Monocytes % 7.2 %; Neutrophils # 6.78 10^3/uL (1.8-7.7); Neutrophils % 75.3 %; Nucleated Red Blood Cells % 0.2 %; Platelet Count 96 10^3/cmm (130-400); Red Blood Count 2.97 10^6/uL (4.1-5.3); Red Cell Distribution Width 19.2 % (12.1-15.1)
[2022-04-29 03:09] LABS: Anion Gap 12.1 (5-19); Blood Urea Nitrogen 11 mg/dL (8-23); Calcium 8.2 mg/dL (8.5-10.5); Carbon Dioxide 25 mmol/L (22-29); Chloride 101 mmol/L (98-107); Glucose 104 mg/dL (65-115); Magnesium 1.7 mg/dL (1.7-2.3); Osmolality Calculated 280 mOsm/kg (285-295); Potassium 3.1 mmol/L (3.5-5.1); Sodium 135 mmol/L (136-145)
[2022-04-29 03:13] LABS: Vancomycin Trough 23.3 ug/mL (10-15)
--- NOTE | 2022-04-29 03:33 | PC.NURSE ---
Vancomycin was prepared to be administered, after preparation trough resulted higher than 20, contacted pharmacy and they said it would be retimed. The vancomycin was never started and wasted in pyxsis.
[2022-04-29 04:54] VITALS: BP 137/65; PULSE 82; RESP 16; TEMP 36.9
--- NOTE | 2022-04-29 05:03 | PC.NURSE ---
Patient stated he does not want to wear the SCDs anymore.
[2022-04-29 07:48] VITALS: BP 145/76; PULSE 79; RESP 15; TEMP 36.5; O2SAT 98
--- NOTE | 2022-04-29 09:27 | PM.CONSULT ---
Providers/Reason For Consult Consulting Physician/Specialty*: Mihaela Castro MD/ Infectious Disease Reason for Consult*: port infection, bacteremia Attending Physician: Vamsi Urrutia MD Primary Care Provider: Robert Floyd MD History of Present Illness History of Present Illness Kendall Camejo is a 82 year old male with diffuse large B-cell lymphoma with bony, muscular and liana involvement s/p chemo with R-CEOP starting 12/2020, most recent cycle 5/6 on 04/18/22. His repeat CT scans appear to show some improvement in the mass at the posterior left 8th rib and slight improvement in the right sacral lesion.? There was no obvious disease progression. His clinical course has been complicated by acute on chronic anemia due to GI bleeding related to duodenitis on EGD on 02/01/22. He is currently admitted since April 25 after presenting here with generalized fatigue malaise poor oral intake and dehydration after receiving chemotherapy between April 18 to April 20. He received last Neulasta on April 20. He was found to have significant pancytopenia for which she received transfusion with packed red blood cells and platelets during the course of admission here. He had significant lower urinary tract symptoms for which he underwent an infectious evaluation. Additionally it was noted that from his admission in January 2022 for GI bleed, his blood cultures had shown staph epidermidis which was deemed to be a contaminant at that time. During the course of current evaluation he has been found to have bacteremia with corynebacterium and coag negative staph for which infectious disease evaluation is currently being sought. Concern is for port infection. It appears he has been on Bactrim as outpatient for neutropenic prophylaxis. He denies any fever but has had some chills. Review of systems positive for fatigue. He has been on IV cefepime and vancomycin during the course of admission. Counts are now currently recovering with an ANC of 900. Review of Systems General: Reports: 10 or more systems reviewed and unremarkable except in HPI and below Const: Reports: fever(s) and chills; Denies: body aches Eyes: Denies: change in vision, blurry vision or photophobia ENMT: Reports: hoarseness; Denies: throat pain, enlarged tonsils, odynophagia or nasal congestion Card: Denies: chest pain, palpitations, irregular heart rhythm, edema, swelling of feet/ankles, lightheadedness, pre-syncope, dyspnea on exertion or orthopnea Resp: Denies: dyspnea, productive cough, non-productive cough, wheezing, stridor, pain on inspiration, change in phlegm color, hemoptysis or chest congestion GI: Denies: abdominal pain, nausea, vomiting, hematemesis, coffee ground emesis, dysphagia, heartburn, diarrhea, constipation, GI cramping, change in stool character, hematochezia or melena : Denies: flank pain, dysuria, urinary frequency, urinary urgency, urinary hesitancy or hematuria Musc: Denies: neck pain, back pain, extremity pain, joint swelling, joint warmth or deformity Neuro: Denies: headache(s), numbness in extremities, weakness in extremities, sensory changes, difficulty walking, frequent falls, dizziness, vertigo, behavioral changes, Slurred speech present or seizure-like activity Psych: Denies: anxiety, depression, suicidal ideation or homicidal ideation Endo: Denies: polyuria, polydipsia, tired all the time, cold intolerance or hot flashes Mauricio/Lymph: Denies: easy bruising or easy bleeding Medications/Allergies Home Medications Medication Instructions Recorded Confirmed Last Taken Type tamsulosin 0.4 mg capsule 0.4 mg PO QPM 07/01/19 04/25/22 01/10/22 History folic acid 1 mg tablet 1 mg PO QPM #90 tabs 01/04/22 04/25/22 01/10/22 Rx sulfamethoxazole 800 1 tab PO .ON MON,WED,Mon01/11/22 04/25/22 Unknown History mg-trimethoprim 160 mg tablet (Bactrim DS) pantoprazole 40 mg tablet,delayed 40 mg PO BID #14 tabs 01/22/22 04/25/22 01/11/22 14:30 Rx release (Protonix) sennosides 8.6 mg-docusate sodium 2 tab PO BID PRN Constipation 02/10/22 04/25/22 Unknown History 50 mg tablet (Senokot-S) hydrocodone 5 mg-acetaminophen 300 1 tab PO Q4H PRN pain 30 days #60 02/24/22 04/25/22 Unknown Rx mg tablet tabs furosemide 20 mg tablet 20 mg PO DAILY #30 tabs 03/14/22 04/25/22 Unknown Rx potassium chloride 10 mEq 10 meq PO BID #60 caps 03/14/22 04/25/22 Unknown Rx capsule,extended release L.acidoph, paracasei,B. lactis 10 10 cell PO DAILY 03/28/22 04/25/22 Unknown History billion cell capsule (Digestive Advantage Advanced Probiotic) meloxicam 15 mg tablet 15 mg PO DAILY #30 tabs 03/28/22 04/25/22 Unknown Rx ondansetron 4 mg disintegrating 4 mg PO Q8H PRN Nausea And Vomiting 03/28/22 04/25/22 Unknown History tablet valacyclovir 500 mg tablet 500 mg PO BID 03/28/22 04/25/22 Unknown History cephalexin 500 mg capsule 500 mg PO BID 04/25/22 04/25/22 Unknown History fluconazole 100 mg tablet See Rx Instructions .Route .COMPLEX 04/25/22 04/25/22 Unknown History Allergies Allergy/AdvReac Type Severity Reaction Status Date / Time meperidine [From Demerol] Allergy Mild ADR/ALGY-Hy Verified 04/25/22 12:06 potension Current Medications Generic Name Dose Route Start Last Admin Trade Name Freq PRN Reason Stop Dose Admin Acetaminophen 650 mg 04/25/22 12:21 04/27/22 20:45 Acetaminophen 325 Mg Tablet PO 650 mg Q6H PRN Administration Mild/Mod Pain Or Temp >/= 101 Non-Formulary Medication 500 mg 04/25/22 18:00 04/28/22 16:47 Valacyclovir PO 500 mg BID REJI Administration Pantoprazole Sodium 40 mg 04/25/22 18:00 04/28/22 16:[address] 40 Mg Tablet PO 40 mg BID REJI Administration Polyethylene Glycol 17 gm 04/27/22 09:20 04/28/22 09:00 Polyethylene Glycol 3350 Pkt 17 Gm PO Not Given DAILY REJI Tamsulosin HCl 0.4 mg 04/25/22 18:00 04/28/22 16:35 Tamsulosin 0.4 Mg Capsule PO 0.4 mg QPM REJI Administration PFSH Acute PFSH: Medical History Bladder wall thickening BPH (benign prostatic hyperplasia) 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 Otoole S/P arthroscopic surgery of left knee S/P lymph node biopsy (11/17/21) Core needle biopsy of left supraclavicular lymph node Status post surgical removal of malignant neoplasm of skin Family History Father Cancer Brother Diabetes Denies family history of CAD (coronary artery disease) Clotting disorder Dementia Hyperlipidemia Psychiatric illness Chronic kidney disease (CKD) Suicide Anesthesia complication Bleeding disorder Family history of premature coronary artery disease Lung disease Hypertension Stroke Social History Smoking and tobacco status: never smoked Quit status (tobacco): has quit using tobacco Second hand smoke exposure: Yes Smoking risk assessment/counseling performed?: Yes Alcohol intake: never Desire information about alcohol rehabilitation?: No Counseling given: No Desire information about substance/drug rehabilitation?: No Counseling given: No Adopted: No Caregiver/support person: No Lives independently: Yes Household members: spouse Housing: Other Details: Rehabbing at [facility] Marital status: Current occupational status: retired Current occupational exposures/hazards: No History of recent travel: No Current gender identity: Male Vitals/I&O/Wt Last Vital Signs Temp 97.7 F 04/29/22 07:48 Pulse 79 04/29/22 07:48 Resp 15 04/29/22 07:48 BP 145/76 04/29/22 07:48 Pulse Ox 98 04/29/22 07:48 O2 Del Method 04/29/22 07:48 O2 Flow Rate 95 04/29/22 04:54 04/28/22 04/29/22 04/29/22 22:59 06:59 14:59 Intake Total 470 / 520 240 / 240 Output Total 200 / 500 350 / 850 Balance 270 / 20 -350 / -330 240 / 240 Physical Exam Narrative: General: No acute distress, AO x3 HEENT: PERRLA, pupils bilaterally equal and reactive, pallors not present Chest: Normal vesicular breath sounds, no added sounds, equal good air entry bilaterally CVS: S1-S2 regular, no murmurs, no tachycardia, no gallops, no rubs Abdomen: Soft, nontender, no organomegaly, bowel sounds present Neuro: No focal deficits, no facial deformity, AO x3, power 5/5 in all limbs Data : 04/29/22 02:27 04/29/22 02:27 Micro: Microbiology 04/25/22 09:00 Blood Culture - Preliminary Blood Staphylococcus epidermidis Corynebacterium species 04/27/22 07:50 Blood Culture - Preliminary Blood NEGATIVE TO DATE 04/27/22 07:50 Blood Culture - Preliminary Blood NEGATIVE TO DATE Blood cultures : 04/25/22: Port blood cx 2 bottles staph epidermidis , 2 bottles with Corynebacterium sp S epidermi M.I.C. RX --------- ------ * Ampicillin 4 R * Ciprofloxacin <=1 S * Clindamycin <=0.5 S * Erythromycin >4 R * Gentamicin <=4 S * Levofloxacin <=1 S * Linezolid 2 S * Oxacillin >2 R * Penicillin >8 R * Rifampin <=1 S * Tetracycline <=4 S * Trimethoprim/Sulfamethoxazole >2/38 R Vancomycin 2 S Daptomycin <=0.5 S 04/25: PBCx: Corynebacterium sp 04/27: peripheral blood cx : negative thus far Previous blood c x: 01/29/22: Staph epidermidis 3 bottles S epidermi M.I.C. RX --------- ------ * Ampicillin >8 R * Ciprofloxacin >2 R * Clindamycin <=0.5 R * Erythromycin >4 R * Gentamicin <=4 S * Levofloxacin >4 R * Linezolid >4 R * Oxacillin >2 R * Penicillin >8 R * Rifampin <=1 S * Tetracycline >8 R * Trimethoprim/Sulfamethoxazole >2/38 R Vancomycin 2 S Daptomycin <=0.5 S 02/01/22: PBCX: no growth (no directed treatment during this time) Other data: TTE 04/27/22 : CONCLUSIONS ?Normal left ventricular size, systolic function and wall ?thickness, with no regional wall motion abnormalities. Grade ?I/IV diastolic dysfunction (abnormal relaxation filling ?pattern), normal to mildly elevated filling pressures. Left ?ventricular ejection fraction is estimated at 60 %. ?Mildly increased right atrial size. ?Mildly increased left atrial size. ?Structurally normal trileaflet aortic valve. Mild aortic valve ?calcification. Mild aortic valve stenosis, mean gradient 9.6 ?mmHg, JULIETH 1.8 cm squared. Mild aortic valve regurgitation. ?When compared to the previous study from November of this year, ?aortic stenosis and aortic insufficiency have developed. A&P Assessment and plan (1) Bacteremia: (2) Port or reservoir infection: Plan Patient with significant past medical history as noted above, currently on chemotherapy with R-CHOP for DLBCL. Admitted currently for pancytopenia which is improved after having received Neulasta and blood transfusions during course of admission. Had some complaints with chills and given neutropenia underwent evaluation for infectious sources of which blood cultures returned positive. Port cultures currently are positive for staph epidermidis and corynebacterium, peripheral blood culture positive for corynebacterium. Review of past culture data shows that patient had positive blood cultures with staph epidermidis in January 2022. I am uncertain if the cultures from January are from the port or periphery. His blood culture was thought to be a contaminant at that time as peripheral blood cultures were clear on February 01, 2022 without directed treatment apart from outpatient Bactrim prophylaxis (he was on chronic dexamethasone at that time). 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 Agree with port removal. Patient can have a PICC line once cultures are negative for 48 hours. TTE without gross vegetations, however does show some new aortic wall thickening with regurgitation which was not seen on TTE from November 2021. Duration of bacteremia is currently unknown at this time. Since duration cannot be certain and he has some new changes on his transthoracic echocardiogram we will plan to treat for 6 weeks as an endovascular infection/ possible endocarditis. Discussed with patient the option of undergoing JOE to further clarify however given that duration may have been prolonged, would plan to treat at least for 4 weeks for an endovascular infection. With a JOE being negative, a 4-week duration may be appropriate versus a 6-week duration commitment right now for possible endocarditis. Given his pancytopenia, low platelets, intermittent GI bleeding, poor functional status and plans for further chemotherapy, after discussion of risks and benefits decision has been made to defer JOE and continue treatment for 6 weeks for possible endocarditis. Choosing daptomycin 8mg/kg q24h over vancomycin at this point in time mainly for once a day scheduling. Patient wishes to return to home and undergo abx infusion at home. His is overwhelmed with the idea of administering abx multiple times a day at home with twice a week trough monitoring (at least a BID dosing for vancomycin) and may instead opt for outpatient infusions at the GI lab if unable to do this at home. To enable ease of once daily administration, will choose daptomycin at this time. HH services are established. F/up ID clinic 05/03/22 via telemedicine. Thereafter at 6 weeks. Consult Attestations Medical Necessity Statement: per admitting Coding Level of Care Code Acute Mysql Database Administrator for Tanisha Begum Diagnoses Bacteremia R78.81 Port or reservoir infection T80.212A
[2022-04-29] MEDS: potassium chloride ER 20 mEq Tablet 40 MEQ PO ×2 (09:36→11:32)
[2022-04-29] MEDS: polyethylene glycol 3350 Pkt 17 gm PO (09:37)
[2022-04-29] MEDS: pantoprazole DR 40 mg Tablet PO (09:37)
--- NOTE | 2022-04-29 09:39 | PM.DCS ---
Discharge Providers Date of Admission: 04/26/22 09:59 Date of Discharge: April 29, 2022 Attending Provider at Admission: Vamsi Urrutia MD Attending Provider at Discharge: aVmsi Urrutia MD Primary Care Provider: Robert Floyd MD Diagnoses at Discharge Discharge Diagnosis (1) Neutropenia: Status: Acute (2) Fatigue: Status: Acute (3) Lower urinary tract symptoms: Status: Acute (4) Anemia: Status: Acute (5) Thrombocytopenia: Status: Acute (6) Diffuse large B-cell lymphoma of extranodal site: Status: Acute Reason for Visit Reason for Visit: Generalized Weakness Hospital Course Hospital Course Kendall is an 82-year-old white male who presented to the emergency department with complaints of severe fatigue. He was found to be neutropenic. He had recently received chemotherapy for his lymphoma. There was concern of infection. Blood cultures were obtained, he was placed on broad-spectrum antibiotics. During the hospital stay his platelet count went down significantly to 10,000. He was transfused 2 units of platelets. Hemoglobin also declined significantly and he ultimately received 3 units of blood while in the hospital. Blood cultures came back staph epidermidis as well as corynebacteria. This was in 3 out of 4 bottles. He had previously cultured positive in January. Secondary to his bacteremia his port was removed. A PICC line was placed. Infectious disease consultation obtained. He will have 4 to 6 weeks of daptomycin as an outpatient IV through his PICC line. He will follow-up with oncology, his primary care provider, and infectious disease. He will get a CBC in 1 week, and CMP and CK weekly. Questions were answered from the family and patient who agreed with plan. Physical Exam Narrative: General exam no distress Neck is supple no lymphadenopathy thyromegaly Cardiovascular regular rate and rhythm, dressing right chest where port was removed Lungs clear Abdomen is soft with positive bowel sounds Extremities no cyanosis clubbing or edema Discharge Data Studies Completed and Pending Completed Studies During Hospitalization Category Date Time Status XR chest 1V portable [id number] Stat Exams 04/25/22 08:14 Completed CV. echo complete* [id number] Routine Ultrasound 04/27/22 09:05 Completed Pending at discharge Category Date Time Status Blood Culture Stat Lab 04/25/22 09:00 Results Blood Culture Stat Lab 04/27/22 07:50 Results Catheter Tip Culture Routine Lab 04/28/22 12:40 Received Complete Crossmatch Routine Lab 04/26/22 07:15 Results Irradiated Leuko Red RBC Routine Lab 04/26/22 07:15 Results Leukocyte Reduced RBC Routine Lab 04/26/22 07:15 Results Platelets Leukoreduced Irradia Routine Lab 04/26/22 07:15 Results Type and Screen Routine Lab 04/26/22 07:15 Results Radiology Impressions Chest X-Ray 04/25/22 08:14 IMPRESSION: No significant cardiopulmonary abnormality. Laboratory Results WBC 9.0 10^3/uL (4.0-10.0) 04/29/22 02:27 RBC 2.97 10^6/uL (4.1-5.3) L 04/29/22 02:27 Hgb 9.1 g/dL (11.7-16.6) L 04/29/22 02:27 Hct 28.2 % (42.0-52.0) L 04/29/22 02:27 MCV 94.9 fl (80-94) H 04/29/22 02:27 MCH 30.6 pg (28.0-34.0) 04/29/22 02:27 MCHC 32.3 g/dL (30.0-36.0) 04/29/22 02:27 RDW 19.2 % (12.1-15.1) H 04/29/22 02:27 Plt Count 96 10^3/cmm (130-400) L 04/29/22 02:27 MPV 11.6 fL (7.4-10.4) H 04/29/22 02:27 Neut % (Auto) 75.3 % 04/29/22 02:27 Lymph % (Auto) 1.7 % 04/29/22 02:27 Reagan % (Auto) 7.2 % 04/29/22 02:27 Eos % (Auto) 0.1 % 04/29/22 02:27 Baso % (Auto) 0.7 % 04/29/22 02:27 Neut # (Auto) 6.78 10^3/uL (1.8-7.7) 04/29/22 02:27 Lymph # (Auto) 0.2 10^3/uL (0.8-4.8) L 04/29/22 02:27 Reagan # (Auto) 0.7 10^3/uL (0.2-0.9) 04/29/22 02:27 Eos # (Auto) 0.0 10^3/uL (0.0-0.8) 04/29/22 02:27 Baso # (Auto) 0.1 10^3/uL (0.0-0.1) 04/29/22 02:27 Nucleated RBC % (auto) 0.2 % 04/29/22 02:27 Total Counted 100 (0-100) 04/28/22 02:14 Atypical Lymphs % 1.0 % (0-5) 04/28/22 02:14 Absolute Neutrophils 4.8 10^3/cmm (1.4-6.5) 04/28/22 02:14 Segmented Neutrophils 67 % 04/28/22 02:14 Abs Segm Neuts (Man) 4.0 10/cmm (1.6-7.1) 04/28/22 02:14 Band Neutrophils 14.0 % 04/28/22 02:14 Abs Band Neuts (Man) 0.8 10^3/cmm (0.0-1.2) 04/28/22 02:14 Absolute Lymphocytes 0.2 10^3/cmm (1.2-3.4) L 04/28/22 02:14 Lymphocytes (Manual) 3 % 04/28/22 02:14 Monocytes (Manual) 13.0 % 04/28/22 02:14 Absolute Monocytes 0.8 10^3/cmm (0.1-0.6) H 04/28/22 02:14 Eosinophils (Manual) 0 % 04/28/22 02:14 Absolute Eosinophils 0.0 10^3/cmm (0.0-0.7) 04/28/22 02:14 Basophils (Manual) 0.0 % 04/28/22 02:14 Absolute Basophils 0.0 10^3/cmm (0.0-0.2) 04/28/22 02:14 Metamyelocytes 2.0 % 04/28/22 02:14 Nucleated RBCs # 0.0 /100WBC 04/29/22 02:27 Toxic Vacuolation 2+ H 04/28/22 02:14 Platelet Estimate Decreased (Normal) 04/28/22 02:14 Giant Platelets 1+ H 04/28/22 02:14 Polychromasia Trace 04/28/22 02:14 Anisocytosis 2+ H 04/28/22 02:14 PT 14.80 SECONDS (12.1-14.9) 04/25/22 06:30 INR 1.13 (0.8-1.2) 04/25/22 06:30 APTT 27.5 SECONDS (23.9-36.7) 04/25/22 06:30 Sodium 135 mmol/L (136-145) L 04/29/22 02:27 Potassium 3.1 mmol/L (3.5-5.1) L 04/29/22 02:27 Chloride 101 mmol/L (98-107) 04/29/22 02:27 Carbon Dioxide 25 mmol/L (22-29) 04/29/22 02:27 Anion Gap 12.1 (5-19) 04/29/22 02:27 BUN 11 mg/dL (8-23) 04/29/22 02:27 Creatinine 0.7 mg/dL (0.7-1.2) 04/29/22 02:27 GFR Calculation Not Reportable 04/29/22 02:27 Glucose 104 mg/dL (65-115) 04/29/22 02:27 Calculated Osmolality 280 mOsm/kg (285-295) L 04/29/22 02:27 Calcium 8.2 mg/dL (8.5-10.5) L 04/29/22 02:27 Magnesium 1.7 mg/dL (1.7-2.3) 04/29/22 02:27 Total Bilirubin 0.6 mg/dL (0.15-1.2) 04/27/22 01:41 AST 7 U/L (0-40) 04/27/22 01:41 ALT 7 U/L (0-41) 04/27/22 01:41 Alkaline Phosphatase 58 U/L (40-130) 04/27/22 01:41 Total Protein 4.0 g/dL (6.6-8.7) L 04/27/22 01:41 Albumin 2.5 g/dL (3.5-5.2) L 04/27/22 01:41 Globulin 1.5 g/dL (1.3-4.6) 04/27/22 01:41 Urine Color Dark yellow (Yellow) 04/25/22 13:25 Urine Appearance Clear (CLEAR) 04/25/22 13:25 Urine pH 6 (5-7) 04/25/22 13:25 Ur Specific [place] 1.010 (1.005-1.030) 04/25/22 13:25 Urine Protein Neg (Negative) 04/25/22 13:25 Urine Glucose (UA) Norm (Normal) 04/25/22 13:25 Urine Ketones Negative (Negative) 04/25/22 13:25 Urine Blood Neg (Negative) 04/25/22 13:25 Urine Nitrate Negative (Negative) 04/25/22 13:25 Urine Bilirubin Neg (Negative) 04/25/22 13:25 Urine Urobilinogen Neg mg/dL (Negative) 04/25/22 13:25 Ur Leukocyte Esterase Negative (Negative) 04/25/22 13:25 Vancomycin Trough 23.3 ug/mL (10-15) H 04/29/22 02:27 Blood Type A Positive 04/26/22 07:15 Rho(D) Type Positive 04/26/22 07:15 Antibody Screen Negative 04/26/22 07:15 Crossmatch See Detail 04/26/22 07:15 Vitals Last Vital Signs Temp 97.7 F 04/29/22 07:48 Pulse 79 04/29/22 07:48 Resp 15 04/29/22 07:48 BP 145/76 04/29/22 07:48 Pulse Ox 98 04/29/22 07:48 O2 Del Method 04/29/22 07:48 O2 Flow Rate 95 04/29/22 04:54 Discharge Plan Discharge Patient Disposition: Home Health Service Condition: Stable Prescriptions: Continued tamsulosin 0.4 mg capsule 0.4 mg PO QPM valacyclovir 500 mg tablet 500 mg PO BID ondansetron 4 mg tablet,disintegrating 4 mg PO Q8H PRN (Reason: Nausea And Vomiting) Digestive Advantage Advanced 10 billion cell capsule 10 cell PO DAILY meloxicam 15 mg tablet 15 mg PO DAILY Qty: 30 1RF folic acid 1 mg tablet 1 mg PO QPM Qty: 90 3RF hydrocodone-acetaminophen 5-300 mg tablet 1 tab PO Q4H PRN (Reason: pain) 30 Days Qty: 60 0RF potassium chloride 10 mEq capsule, extended release 10 meq PO BID Qty: 60 2RF furosemide 20 mg tablet 20 mg PO DAILY Qty: 30 2RF fluconazole 100 mg tablet See Rx Instructions .ROUTE .COMPLEX Rx Instructions: 100 mg orally DIRECTED sulfamethoxazole-trimethoprim [Bactrim DS] 800-160 mg tablet 1 tab PO .ON MON,MON,MON Rx Instructions: For infection prevention take on Monday, Monday and Monday while on chemo and for 3 months after completion sennosides-docusate sodium [Senokot-S] 8.6-50 mg tablet 2 tab PO BID PRN (Reason: Constipation) pantoprazole [Protonix] 40 mg tablet,delayed release (DR/EC) 40 mg PO BID Qty: 14 0RF Discontinued cephalexin 500 mg capsule 500 mg PO BID Discharge Orders: Discharge Order (Routine); Ordered 04/29/22 Ordered By: Vamsi Urrutia Referrals: [facility] [Outside] [facility] ([facility]) [Outside] Mihaela Castro MD [Hospitalist] - 4-7 days (Please arrange for Monday, infectious disease clinic, May 03) Robert Floyd MD [Primary Care Provider] - 4-7 days Discharge Diet: Regular Discharge Activity: Increase activity as tolerated Patient Instructions: Opioid Safety, Pain Management Activity Restrictions/Additional Instructions: Take all medicine as prescribed Return for any concerns Oncology will call you for any lab or early follow-up CMP, CK every 1 week while on IV antibiotic daptomycin infusions CBC in 1 week, please also send to oncology, Dr. Dickey Patient's Health Concerns: Low white blood cell counts, bacteremia Assessment: Bacteremia Plan of Treatment: Port removed. Daptomycin for 6 weeks Discharge Attestations Time Spent in Discharge Care*: greater than 30 min Status at Discharge: Cognitive status at discharge: cognitively intact, Behavioral status at discharge: cooperative, Quality Metrics Clinical Quality Measures [ No reported AMI, CVA or VTE this stay] Coding Level of Care Code Acute Chg FW DC note Diagnoses Neutropenia D70.9 Fatigue R53.83 Lower urinary tract symptoms R39.9 Anemia D64.9 Thrombocytopenia D69.6 Diffuse large B-cell lymphoma of extranodal site C83.39
--- NOTE | 2022-04-29 10:42 | PC.CHAP ---
Pastoral Care Encounter/Spiritual Assessment Type of Contact [] Declined personal care aid visit [] Patient/Family/Request visit [] Outpatient visit [] Follow-up visit [] Physician referral [] Code/Alert [x] Routine visit [] Staff referral [] Actively dying [] Patient sleeping [] Family support [] [] Out of room [] Palliative care [] [] Receiving care in room [] Pre-surgical visit [] Trauma [] Long length of stay [] ICU visit [] Other: Relational/Emotional Strength [x] Patient feels connected with others/family/visitors/staff [] Distress [] Loneliness/isolation [] Abandonment Spirituality of Patient x] Person of Shanice [x] Attends Pentecostal of their Shanice [x] Believes in Prayer [x] Reads Bible or Confucianism materials [] There are Spiritual issues to be addressed Ground Defence Officer Interventions x[] Prayer [x] Active listening [x] Non-anxious presence [x] Spiritual/emotional support [] Crisis/trauma care [] Spiritual counseling [] Bereavement support [] Provided bereavement packet [x] Provided Bible/devotional materials [] Provided toy/stuffed animal, coloring book to patient or family member [] Provided Communion [] Anointing/[place] [] Salvation []x Completed spiritual assessment [] Other: Impact on Illness or Injury [] Angry [] Fearful [] Anxious [] Often cries [] Exhaustion [] Unable to work [] Unable to attend taoist [] Unable to walk/stand [] Unable to read [] Unable to drive [] Unable to eat/drink [] Unable to sleep [] Unable to be with family [] Patient intubated [] Other: Summary Time spent with patient 20 min
[2022-04-29 11:29] VITALS: BP 116/73; PULSE 88; RESP 15; TEMP 36.5; O2SAT 98
[2022-04-29] MEDS: DAPTOmycin 800 MG in sodium chloride 0.9% (100 ml) 100 ML 100 MG IV (11:32)
--- NOTE | 2022-04-29 11:55 | PC.SOCIAL ---
IMM update IMM updated with patient and . Verbalized an understanding. Copy Pg 2 provided. Initialled, dated, timed, and placed in chart.
--- NOTE | 2022-04-29 13:09 | XR_ITS ---
WS: [id number] Exam: XR chest 1V portable [id number] Date/Time of Exam: 04/29/2022 1:09 PM Reason For Exam: Post PICC insertion Comparison 04/25/2022 Right-sided PICC line is visualized and appears to end in the upper third of the SVC. The lungs are c lear and fully expanded. Normal cardiomediastinal silhouette for technique. Bony structures are intac t. Previously noted right-sided port has been removed. XR/XR chest 1V portable [id number] IMPRESSION: 1. Right-sided PICC line ending in the upper one third of the SVC. 2. No acute cardiopulmonary finding.
[2022-04-29 15:42] VITALS: BP 116/73; PULSE 88; RESP 15; TEMP 36.5; O2SAT 98
== END 2022-04-29 15:44 | disposition home health service (06) | DRG 314 ==
LOC: ER 10:03 → MEDSURG 10:57
PROVIDERS: Surgery; Admitting Provider Internal Medicine; Emergency Provider Family Medicine; PCP Family Medicine; Visit Provider Internal Medicine
PROC: 0JPT0WZ Removal of Totally Implantable Vascular Access Device from Trunk Subcutaneous Tissue and Fascia, Open Approach (ICD-10-PCS; CPT 36589; principal; 2022-04-28 10:40)
DX: T80.211A Bloodstream infection due to central venous catheter, initial encounter (principal); D61.810 Antineoplastic chemotherapy induced pancytopenia; C83.39 Diffuse large B-cell lymphoma, extranodal and solid organ sites; I38 Endocarditis, valve unspecified; D62 Acute posthemorrhagic anemia; T80.212A Local infection due to central venous catheter, initial encounter; D70.1 Agranulocytosis secondary to cancer chemotherapy; T45.1X5A Adverse effect of antineoplastic and immunosuppressive drugs, initial encounter; B95.7 Other staphylococcus as the cause of diseases classified elsewhere; E87.6 Hypokalemia; E83.42 Hypomagnesemia; E86.0 Dehydration; N40.1 Benign prostatic hyperplasia with lower urinary tract symptoms; R35.0 Frequency of micturition; Z95.9 Presence of cardiac and vascular implant and graft, unspecified; Z79.899 Other long term (current) drug therapy
CPT/HCPCS: 36415; 36430; 36569; 71045; 80048; 80053; 80202; 81003; 83735; 85007; 85025; 85610; 85730; 86850; 86900; 86920; 87040; 87070; 87075; 87077; 87086; 87186; 87205; 93005; 93306; G0378; J0692; J0878; J1940; J3370; J3475; J7030; P9037; P9040

== ENCOUNTER 2022-04-25 09:30 | Oncology outpatient (recurring) (ONCR) | payer OTHER, MEDICARE, SELFPAY ==
[2022-04-11] VITALS (10 sets, daily range): BP systolic 104–120; BP diastolic 60–78; PULSE 65–88; RESP 16–18; TEMP 36.2–36.9; O2SAT 95–99
[2022-04-11 09:33] LABS: Hematocrit 24.7 % (42.0-52.0); Hemoglobin 7.8 g/dL (11.7-16.6); Mean Corpuscular HGB Conc 31.6 g/dL (30.0-36.0); Mean Corpuscular Hemoglobin 32.5 pg (28.0-34.0); Mean Corpuscular Volume 102.9 fl (80-94); Mean Platelet Volume 10.7 fL (7.4-10.4); Platelet Count 138 10^3/cmm (130-400); Red Cell Distribution Width 18.6 % (12.1-15.1); White Blood Count 6.9 10^3/uL (4.0-10.0)
[2022-04-11 10:03] LABS: Slide Review Slide Review Perform
[2022-04-11 10:08] LABS: Absolute Segmented Neutrophil 5.9 10/cmm (1.6-7.1); Band Neutrophils Absolute 0.3 10^3/cmm (0.0-1.2); Lymphocytes 3 %; Monocytes Absolute 0.3 10^3/cmm (0.1-0.6); Segmented Neutrophils 85 %; Total Cells Counted 100 (0-100)
[2022-04-11 10:09] LABS: Eosinophils 0 %; Lymphocytes Absolute 0.2 10^3/cmm (1.2-3.4); Poikilocytosis Trace
[2022-04-11 10:10] LABS: Anisocytosis 2+; Macrocytosis 1+
[2022-04-11 10:11] LABS: Absolute Neutrophil 6.1 10^3/cmm (1.4-6.5); Platelet Estimate Normal (Normal)
[2022-04-11] MEDS: sodium chloride 0.9% 100 mL Bag 250 ML IV (10:31)
[2022-04-11] MEDS: diphenhydrAMINE 25 mg Capsule PO (10:31)
[2022-04-11] MEDS: acetaminophen 325 mg Tablet 650 MG PO (10:31)
[2022-04-18 08:42] LABS: Basophils % 0.4 %; Eosinophils % 0.1 %; Hemoglobin 9.9 g/dL (11.7-16.6); Lymphocytes # 0.1 10^3/uL (0.8-4.8); Mean Corpuscular HGB Conc 31.9 g/dL (30.0-36.0); Mean Corpuscular Hemoglobin 31.7 pg (28.0-34.0); Mean Corpuscular Volume 99.4 fl (80-94); Mean Platelet Volume 9.3 fL (7.4-10.4); Monocytes # 0.6 10^3/uL (0.2-0.9); Monocytes % 8.1 %; Neutrophils # 7.03 10^3/uL (1.8-7.7); Nucleated Red Blood Cells % 0 %; Platelet Count 190 10^3/cmm (130-400); Red Blood Count 3.12 10^6/uL (4.1-5.3); Red Cell Distribution Width 18.9 % (12.1-15.1); White Blood Count 7.9 10^3/uL (4.0-10.0)
[2022-04-18 09:09] LABS: Alanine Aminotransferase 9 U/L (0-41); Albumin Level 3.1 g/dL (3.5-5.2); Alkaline Phosphatase 113 U/L (40-130); Anion Gap 16.9 (5-19); Aspartate Amino Transferase 12 U/L (0-40); Blood Urea Nitrogen 17 mg/dL (8-23); Carbon Dioxide 25 mmol/L (22-29); Chloride 101 mmol/L (98-107); Globulin 2.2 g/dL (1.3-4.6); Glucose 141 mg/dL (65-115); Lactate Dehydrogenase 360 U/L (135-225); Osmolality Calculated 292 mOsm/kg (285-295); Potassium 3.9 mmol/L (3.5-5.1); Sodium 139 mmol/L (136-145); Total Bilirubin 0.3 mg/dL (0.15-1.2); Total Protein 5.3 g/dL (6.6-8.7)
[2022-04-18] MEDS: sodium chloride 0.9% 250 ML 75 ML IV (10:48)
[2022-04-18] MEDS: ondansetron 2 mg/ML SDV 2 mL 8 MG IVP (10:52)
[2022-04-18] MEDS: famotidine 20 mg/2 mL INJ IVP (10:54)
[2022-04-18] MEDS: diphenhydrAMINE 50 mg/mL SDV 1mL 25 MG IVP (10:56)
[2022-04-18] MEDS: acetaminophen 325 mg Tablet 650 MG PO (11:01)
[2022-04-18 11:23] VITALS: BP 111/70; PULSE 101; RESP 16; TEMP 36.3; O2SAT 96
[2022-04-18 12:00] VITALS: BP 105/60; PULSE 81; RESP 16; TEMP 36; O2SAT 95
[2022-04-18 12:32] VITALS: BP 103/60; PULSE 82; RESP 16; TEMP 36.4; O2SAT 92
[2022-04-18 17:16] VITALS: BP 113/65; PULSE 80; RESP 16; TEMP 36.9; O2SAT 98
[2022-04-19 08:27] VITALS: BP 114/70; PULSE 85; RESP 16; TEMP 36.9; O2SAT 98
[2022-04-19] MEDS: sodium chloride 0.9% 250 ML 75 ML IV (08:31)
[2022-04-19] MEDS: ondansetron 2 mg/ML SDV 2 mL 8 MG IVP (08:32)
[2022-04-19 10:10] VITALS: BP 112/6; PULSE 78; RESP 16; TEMP 37.1; O2SAT 93
[2022-04-20 08:32] VITALS: BP 112/61; PULSE 69; RESP 16; TEMP 37; O2SAT 98
[2022-04-20] MEDS: sodium chloride 0.9% 250 ML 75 ML IV (08:40)
[2022-04-20] MEDS: palonosetron 0.25 mg/5 mL SDV IVP (08:40)
[2022-04-20] MEDS: pegfilgrastim 6 mg/0.6 mL Kit (onpro) SUBCUT (10:15)
[2022-04-20 10:17] VITALS: BP 121/64; PULSE 86; RESP 16; TEMP 36.7; O2SAT 98
== END 2022-04-25 23:59 | disposition home or self-care (01) ==
PROVIDERS: PCP Family Medicine; Visit Provider Internal Medicine Medical Oncology
DX: C83.39 Diffuse large B-cell lymphoma, extranodal and solid organ sites
CPT/HCPCS: 36430; 36591; 80053; 83615; 85007; 85025; 86850; 86900; 86920; 96367; 96375; 96377; 96413; 96415; 96417; 99214; J1100; J1200; J2405; J2469; J2506; J3490; J7030; J7040; J7050; J9070; J9181; J9370; P9016; Q5115

== ENCOUNTER 2022-05-02 12:04 | Outpatient (CLI) | payer MEDICARE, OTHER, SELFPAY ==
[2022-05-02 13:32] LABS: Basophils % 0.3 %; Eosinophils % 0.2 %; Hematocrit 30.3 % (42.0-52.0); Hemoglobin 9.6 g/dL (11.7-16.6); Lymphocytes # 0.2 10^3/uL (0.8-4.8); Lymphocytes % 1.8 %; Mean Corpuscular HGB Conc 31.7 g/dL (30.0-36.0); Mean Corpuscular Volume 97.7 fl (80-94); Mean Platelet Volume 11.1 fL (7.4-10.4); Monocytes # 0.6 10^3/uL (0.2-0.9); Monocytes % 7.2 %; Neutrophils # 6.79 10^3/uL (1.8-7.7); Nucleated Red Blood Cells % 0 %; Platelet Count 166 10^3/cmm (130-400); Red Cell Distribution Width 18.6 % (12.1-15.1); White Blood Count 8.8 10^3/uL (4.0-10.0)
[2022-05-02 13:55] LABS: Alanine Aminotransferase 8 U/L (0-41); Albumin Level 2.9 g/dL (3.5-5.2); Alkaline Phosphatase 106 U/L (40-130); Aspartate Amino Transferase 12 U/L (0-40); Blood Urea Nitrogen 12 mg/dL (8-23); Creatine Phosphokinase 23 U/L (39-308); Globulin 1.6 g/dL (1.3-4.6); Total Bilirubin 0.4 mg/dL (0.15-1.2); Total Protein 4.5 g/dL (6.6-8.7)
[2022-05-02 14:15] LABS: Neutrophils % 90.5 %
[2022-05-02 14:16] LABS: Slide Review Slide Review Perform
== END 2022-05-02 12:05 | disposition home or self-care (01) ==
LOC: LAB 12:43
PROVIDERS: PCP Family Medicine; Visit Provider Student in an Organized Health Care Education/Training Program
DX: C83.31 Diffuse large B-cell lymphoma, lymph nodes of head, face, and neck (principal); D63.0 Anemia in neoplastic disease
CPT/HCPCS: 80076; 82550; 82565; 84520; 85025

== ENCOUNTER 2022-05-09 12:41 | Outpatient (CLI) | payer MEDICARE, OTHER, SELFPAY ==
[2022-05-09 13:11] LABS: Basophils % 0.5 %; Eosinophils % 0.3 %; Hematocrit 29.9 % (42.0-52.0); Hemoglobin 9.4 g/dL (11.7-16.6); Lymphocytes # 0.2 10^3/uL (0.8-4.8); Lymphocytes % 3.2 %; Mean Corpuscular HGB Conc 31.4 g/dL (30.0-36.0); Mean Corpuscular Hemoglobin 31.1 pg (28.0-34.0); Mean Platelet Volume 10.3 fL (7.4-10.4); Monocytes # 0.5 10^3/uL (0.2-0.9); Monocytes % 8.1 %; Neutrophils # 5.11 10^3/uL (1.8-7.7); Neutrophils % 86.4 %; Nucleated Red Blood Cells % 0 %; Platelet Count 196 10^3/cmm (130-400); Red Blood Count 3.02 10^6/uL (4.1-5.3); Red Cell Distribution Width 18.1 % (12.1-15.1); White Blood Count 5.9 10^3/uL (4.0-10.0)
[2022-05-09 13:28] LABS: Alanine Aminotransferase 8 U/L (0-41); Albumin Level 3.2 g/dL (3.5-5.2); Alkaline Phosphatase 92 U/L (40-130); Blood Urea Nitrogen 16 mg/dL (8-23); Creatine Phosphokinase 33 U/L (39-308); Total Bilirubin 0.4 mg/dL (0.15-1.2); Total Protein 5.2 g/dL (6.6-8.7)
[2022-05-09 14:22] LABS: Aspartate Amino Transferase 17 U/L (0-40)
== END 2022-05-09 12:42 | disposition home or self-care (01) ==
LOC: LAB 12:42
PROVIDERS: PCP Family Medicine; Visit Provider Student in an Organized Health Care Education/Training Program
DX: R78.81 Bacteremia (principal)
CPT/HCPCS: 80076; 82550; 82565; 84520; 85025

== ENCOUNTER 2022-05-11 08:15 | Oncology outpatient (recurring) (ONCR) | payer MEDICARE, OTHER, SELFPAY ==
[2022-05-11 09:00] LABS: Basophils % 0.6 %; Eosinophils % 0.3 %; Hematocrit 31.6 % (42.0-52.0); Hemoglobin 10.1 g/dL (11.7-16.6); Lymphocytes # 0.2 10^3/uL (0.8-4.8); Lymphocytes % 2.9 %; Mean Corpuscular Hemoglobin 32.1 pg (28.0-34.0); Mean Corpuscular Volume 100.3 fl (80-94); Mean Platelet Volume 9.8 fL (7.4-10.4); Monocytes # 0.6 10^3/uL (0.2-0.9); Monocytes % 8.1 %; Neutrophils # 6.19 10^3/uL (1.8-7.7); Neutrophils % 86.8 %; Nucleated Red Blood Cells % 0 %; Platelet Count 228 10^3/cmm (130-400); Red Blood Count 3.15 10^6/uL (4.1-5.3); Red Cell Distribution Width 18.5 % (12.1-15.1); White Blood Count 7.1 10^3/uL (4.0-10.0)
[2022-05-11 09:23] LABS: Alanine Aminotransferase 8 U/L (0-41); Albumin Level 3.5 g/dL (3.5-5.2); Alkaline Phosphatase 107 U/L (40-130); Anion Gap 15.3 (5-19); Aspartate Amino Transferase 14 U/L (0-40); Blood Urea Nitrogen 15 mg/dL (8-23); Calcium 9.6 mg/dL (8.5-10.5); Carbon Dioxide 26 mmol/L (22-29); Chloride 101 mmol/L (98-107); Globulin 2.2 g/dL (1.3-4.6); Glucose 105 mg/dL (65-115); Lactate Dehydrogenase 324 U/L (135-225); Osmolality Calculated 287 mOsm/kg (285-295); Potassium 4.3 mmol/L (3.5-5.1); Sodium 138 mmol/L (136-145); Total Bilirubin 0.5 mg/dL (0.15-1.2); Total Protein 5.7 g/dL (6.6-8.7)
== END 2022-05-25 23:59 | disposition home or self-care (01) ==
PROVIDERS: PCP Family Medicine; Visit Provider Internal Medicine Medical Oncology
DX: C83.39 Diffuse large B-cell lymphoma, extranodal and solid organ sites (principal); C79.51 Secondary malignant neoplasm of bone; C79.89 Secondary malignant neoplasm of other specified sites; D50.0 Iron deficiency anemia secondary to blood loss (chronic); K29.81 Duodenitis with bleeding; R53.1 Weakness; R53.0 Neoplastic (malignant) related fatigue; Z95.828 Presence of other vascular implants and grafts; Z79.899 Other long term (current) drug therapy; Z92.21 Personal history of antineoplastic chemotherapy; Z92.3 Personal history of irradiation
CPT/HCPCS: 36592; 80053; 83615; 85025; 86850; 86900; 99214

== ENCOUNTER 2022-05-16 14:04 | Outpatient (CLI) | payer MEDICARE, OTHER, SELFPAY ==
[2022-05-16 14:17] LABS: Basophils % 0.3 %; Hematocrit 43.9 % (42.0-52.0); Hemoglobin 14.1 g/dL (11.7-16.6); Lymphocytes # 0.1 10^3/uL (0.8-4.8); Lymphocytes % 4.1 %; Mean Corpuscular HGB Conc 32.1 g/dL (30.0-36.0); Mean Corpuscular Volume 99.5 fl (80-94); Mean Platelet Volume 9.9 fL (7.4-10.4); Monocytes # 0.3 10^3/uL (0.2-0.9); Monocytes % 9.5 %; Neutrophils # 2.47 10^3/uL (1.8-7.7); Neutrophils % 84.1 %; Nucleated Red Blood Cells % 0 %; Platelet Count 160 10^3/cmm (130-400); Red Blood Count 4.41 10^6/uL (4.1-5.3); Red Cell Distribution Width 19.1 % (12.1-15.1); White Blood Count 2.9 10^3/uL (4.0-10.0)
[2022-05-16 14:39] LABS: Alanine Aminotransferase 7 U/L (0-41); Albumin Level 3.1 g/dL (3.5-5.2); Alkaline Phosphatase 106 U/L (40-130); Aspartate Amino Transferase 17 U/L (0-40); Blood Urea Nitrogen 19 mg/dL (8-23); Creatine Phosphokinase 35 U/L (39-308); Globulin 2.3 g/dL (1.3-4.6); Total Bilirubin 0.3 mg/dL (0.15-1.2); Total Protein 5.4 g/dL (6.6-8.7)
== END 2022-05-16 14:05 | disposition home or self-care (01) ==
PROVIDERS: PCP Family Medicine; Visit Provider Student in an Organized Health Care Education/Training Program
DX: R78.81 Bacteremia (principal)
CPT/HCPCS: 36415; 80076; 82550; 82565; 84520; 85025

== ENCOUNTER 2022-05-23 06:00 | Outpatient (CLI) | payer MEDICARE, OTHER, SELFPAY ==
[2022-05-23 18:32] LABS: Basophils % 0.4 %; Eosinophils # 0.1 10^3/uL (0.0-0.8); Eosinophils % 2.4 %; Hematocrit 29.5 % (42.0-52.0); Hemoglobin 9.2 g/dL (11.7-16.6); Lymphocytes # 0.2 10^3/uL (0.8-4.8); Lymphocytes % 3.2 %; Mean Corpuscular HGB Conc 31.2 g/dL (30.0-36.0); Mean Corpuscular Hemoglobin 32.9 pg (28.0-34.0); Mean Corpuscular Volume 105.4 fl (80-94); Mean Platelet Volume 10.2 fL (7.4-10.4); Monocytes # 0.5 10^3/uL (0.2-0.9); Neutrophils # 4.48 10^3/uL (1.8-7.7); Neutrophils % 84.4 %; Nucleated Red Blood Cells % 0 %; Platelet Count 270 10^3/cmm (130-400); Red Cell Distribution Width 19.5 % (12.1-15.1); White Blood Count 5.3 10^3/uL (4.0-10.0)
[2022-05-23 18:53] LABS: Alanine Aminotransferase 7 U/L (0-41); Albumin Level 3.3 g/dL (3.5-5.2); Alkaline Phosphatase 103 U/L (40-130); Blood Urea Nitrogen 21 mg/dL (8-23); Creatine Phosphokinase 37 U/L (39-308); Globulin 2.1 g/dL (1.3-4.6); Total Bilirubin 0.3 mg/dL (0.15-1.2); Total Protein 5.4 g/dL (6.6-8.7)
[2022-05-23 18:55] LABS: Aspartate Amino Transferase 18 U/L (0-40)
== END 2022-05-23 06:01 | disposition home or self-care (01) ==
LOC: LAB 07-23 11:46
PROVIDERS: PCP Emergency Medicine Emergency Medical Services; Visit Provider Student in an Organized Health Care Education/Training Program
DX: R78.81 Bacteremia (principal)
CPT/HCPCS: 80076; 82550; 84520; 85025

== ENCOUNTER 2022-05-30 15:15 | Outpatient (CLI) | payer MEDICARE, OTHER, SELFPAY ==
[2022-05-30 16:35] LABS: Basophils % 0.4 %; Eosinophils # 0.1 10^3/uL (0.0-0.8); Eosinophils % 2.3 %; Lymphocytes # 0.2 10^3/uL (0.8-4.8); Lymphocytes % 3.7 %; Mean Corpuscular HGB Conc 30.1 g/dL (30.0-36.0); Mean Corpuscular Hemoglobin 33.3 pg (28.0-34.0); Mean Corpuscular Volume 110.9 fl (80-94); Mean Platelet Volume 9.7 fL (7.4-10.4); Monocytes # 0.6 10^3/uL (0.2-0.9); Monocytes % 11.2 %; Neutrophils # 4.17 10^3/uL (1.8-7.7); Neutrophils % 81.6 %; Nucleated Red Blood Cells % 0 %; Platelet Count 276 10^3/cmm (130-400); Red Blood Count 1.74 10^6/uL (4.1-5.3); White Blood Count 5.1 10^3/uL (4.0-10.0)
[2022-05-30 16:42] LABS: Hemoglobin 5.8 g/dL (11.7-16.6)
[2022-05-30 16:43] LABS: Hematocrit 19.3 % (42.0-52.0); Slide Review Slide Review Perform
[2022-05-30 16:57] LABS: Alkaline Phosphatase 107 U/L (40-130); Blood Urea Nitrogen 19 mg/dL (8-23); Globulin 2.4 g/dL (1.3-4.6); Total Bilirubin 0.3 mg/dL (0.15-1.2); Total Protein 5.4 g/dL (6.6-8.7)
[2022-05-30 16:58] LABS: Alanine Aminotransferase 7 U/L (0-41); Aspartate Amino Transferase 21 U/L (0-40); Creatine Phosphokinase 50 U/L (39-308)
== END 2022-05-30 15:16 | disposition home or self-care (01) ==
LOC: LAB 15:16
PROVIDERS: PCP Family Medicine; Visit Provider Student in an Organized Health Care Education/Training Program
DX: R78.81 Bacteremia (principal)
CPT/HCPCS: 80076; 82550; 82565; 84520; 85025

== ENCOUNTER 2022-06-06 13:53 | Outpatient (CLI) | payer MEDICARE, OTHER, SELFPAY ==
[2022-06-06 13:09] LABS: Basophils % 0.3 %; Eosinophils # 0.1 10^3/uL (0.0-0.8); Eosinophils % 2.2 %; Hematocrit 28.6 % (42.0-52.0); Hemoglobin 9.3 g/dL (11.7-16.6); Lymphocytes # 0.2 10^3/uL (0.8-4.8); Lymphocytes % 5.2 %; Mean Corpuscular HGB Conc 32.5 g/dL (30.0-36.0); Mean Corpuscular Hemoglobin 33.8 pg (28.0-34.0); Mean Platelet Volume 9.9 fL (7.4-10.4); Monocytes # 0.5 10^3/uL (0.2-0.9); Monocytes % 15.4 %; Neutrophils # 2.48 10^3/uL (1.8-7.7); Neutrophils % 76.3 %; Nucleated Red Blood Cells % 0 %; Platelet Count 240 10^3/cmm (130-400); Red Blood Count 2.75 10^6/uL (4.1-5.3); White Blood Count 3.3 10^3/uL (4.0-10.0)
[2022-06-06 13:38] LABS: Alanine Aminotransferase 10 U/L (0-41); Albumin Level 3.4 g/dL (3.5-5.2); Blood Urea Nitrogen 15 mg/dL (8-23); Creatine Phosphokinase 33 U/L (39-308); Globulin 1.8 g/dL (1.3-4.6); Total Bilirubin 0.3 mg/dL (0.15-1.2); Total Protein 5.2 g/dL (6.6-8.7)
[2022-06-06 13:49] LABS: Alkaline Phosphatase 110 U/L (40-130); Aspartate Amino Transferase 14 U/L (0-40)
== END 2022-06-06 13:54 | disposition home or self-care (01) ==
PROVIDERS: PCP Family Medicine; Visit Provider Student in an Organized Health Care Education/Training Program
DX: R78.81 Bacteremia (principal)
CPT/HCPCS: 80076; 82550; 82565; 84520; 85025

== ENCOUNTER 2022-06-14 11:09 | Oncology outpatient (recurring) (ONCR) | payer OTHER, SELFPAY ==
[2022-05-31 08:39] LABS: Basophils % 0.2 %; Eosinophils # 0.1 10^3/uL (0.0-0.8); Eosinophils % 2.1 %; Hematocrit 29.9 % (42.0-52.0); Hemoglobin 9.8 g/dL (11.7-16.6); Lymphocytes # 0.2 10^3/uL (0.8-4.8); Lymphocytes % 3.1 %; Mean Corpuscular HGB Conc 32.8 g/dL (30.0-36.0); Mean Corpuscular Hemoglobin 33.7 pg (28.0-34.0); Mean Corpuscular Volume 102.7 fl (80-94); Mean Platelet Volume 9.4 fL (7.4-10.4); Monocytes # 0.6 10^3/uL (0.2-0.9); Monocytes % 11.3 %; Neutrophils % 82.5 %; Nucleated Red Blood Cells % 0 %; Platelet Count 226 10^3/cmm (130-400); Red Blood Count 2.91 10^6/uL (4.1-5.3); Red Cell Distribution Width 18.6 % (12.1-15.1); White Blood Count 4.9 10^3/uL (4.0-10.0)
[2022-06-08 09:49] LABS: Alanine Aminotransferase 8 U/L (0-41); Albumin Level 3.6 g/dL (3.5-5.2); Alkaline Phosphatase 111 U/L (40-130); Anion Gap 14.1 (5-19); Aspartate Amino Transferase 12 U/L (0-40); Blood Urea Nitrogen 24 mg/dL (8-23); Calcium 9.2 mg/dL (8.5-10.5); Carbon Dioxide 25 mmol/L (22-29); Chloride 99 mmol/L (98-107); Globulin 1.8 g/dL (1.3-4.6); Glucose 118 mg/dL (65-115); Lactate Dehydrogenase 209 U/L (135-225); Osmolality Calculated 283 mOsm/kg (285-295); Potassium 4.1 mmol/L (3.5-5.1); Sodium 134 mmol/L (136-145); Total Bilirubin 0.3 mg/dL (0.15-1.2); Total Protein 5.4 g/dL (6.6-8.7)
[2022-06-14 12:21] LABS: Basophils % 0.3 %; Eosinophils # 0.1 10^3/uL (0.0-0.8); Eosinophils % 1.5 %; Hematocrit 31.2 % (42.0-52.0); Hemoglobin 10.3 g/dL (11.7-16.6); Lymphocytes # 0.3 10^3/uL (0.8-4.8); Lymphocytes % 9.6 %; Mean Corpuscular Hemoglobin 33.7 pg (28.0-34.0); Mean Platelet Volume 9.4 fL (7.4-10.4); Monocytes # 0.7 10^3/uL (0.2-0.9); Monocytes % 20.6 %; Neutrophils # 2.33 10^3/uL (1.8-7.7); Neutrophils % 67.7 %; Nucleated Red Blood Cells % 0 %; Platelet Count 283 10^3/cmm (130-400); Red Blood Count 3.06 10^6/uL (4.1-5.3); Red Cell Distribution Width 16.5 % (12.1-15.1); White Blood Count 3.4 10^3/uL (4.0-10.0)
[2022-06-14 12:44] LABS: Alanine Aminotransferase 8 U/L (0-41); Albumin Level 3.7 g/dL (3.5-5.2); Alkaline Phosphatase 124 U/L (40-130); Anion Gap 13.6 (5-19); Aspartate Amino Transferase 12 U/L (0-40); Blood Urea Nitrogen 18 mg/dL (8-23); Calcium 9.6 mg/dL (8.5-10.5); Carbon Dioxide 27 mmol/L (22-29); Chloride 98 mmol/L (98-107); Globulin 2.3 g/dL (1.3-4.6); Glucose 119 mg/dL (65-115); Iron 33 ug/dL (59-158); Osmolality Calculated 281 mOsm/kg (285-295); Percent Saturation 17.8 % (20-50); Potassium 4.6 mmol/L (3.5-5.1); Sodium 134 mmol/L (136-145); Total Bilirubin 0.4 mg/dL (0.15-1.2); Total Iron Binding Capacity 185 mcg/dl; Unsaturated Iron Binding 152 ug/dL (112-347)
[2022-06-14 13:00] LABS: Immunoglobulin IGA 50 mg/dL (70-400); Immunoglobulin IGG 310 mg/dL (700-1600); Immunoglobulin IGM 25 mg/dL (40-230)
[2022-06-14 13:01] LABS: Vitamin B12 680 pg/mL (232-1245)
[2022-06-15 06:24] LABS: PROTEIN, TOTAL 5.3 g/dL (6.1-8.1)
[2022-06-15 12:29] LABS: KAPPA LIGHT CHAIN, FREE, SERUM 13.1 mg/L (3.3-19.4); LAMBDA LIGHT CHAIN, FREE, SERU 8.2 mg/L (5.7-26.3)
[2022-06-15 16:15] LABS: ALBUMIN 3.2 g/dL (3.8-4.8); ALPHA 1 GLOBULIN 0.4 g/dL (0.2-0.3); ALPHA 2 GLOBULIN 0.8 g/dL (0.5-0.9); BETA 1 GLOBULIN 0.4 g/dL (0.4-0.6); BETA 2 GLOBULIN 0.2 g/dL (0.2-0.5); GAMMA GLOBULIN 0.3 g/dL (0.8-1.7)
== END 2022-06-25 23:59 | disposition home or self-care (01) ==
PROVIDERS: Nurse Practitioner; PCP Emergency Medicine Emergency Medical Services; Visit Provider Internal Medicine Medical Oncology
DX: C83.39 Diffuse large B-cell lymphoma, extranodal and solid organ sites (principal); D64.9 Anemia, unspecified; R78.81 Bacteremia
CPT/HCPCS: 36415; 36591; 36592; 80053; 82607; 82784; 83540; 83550; 83615; 83883; 84155; 84165; 85025; 87040; 99214

== ENCOUNTER 2022-07-06 07:44 | Outpatient (CLI) | payer OTHER, SELFPAY ==
[2022-07-06] MEDS: iohexol 350 mg/mL 500 mL Btl (per mL) PO (07:58)
[2022-07-06 08:25] LABS: Basophils % 0.2 %; Eosinophils # 0.1 10^3/uL (0.0-0.8); Eosinophils % 1.8 %; Hematocrit 31.7 % (42.0-52.0); Hemoglobin 10.3 g/dL (11.7-16.6); Lymphocytes # 0.2 10^3/uL (0.8-4.8); Lymphocytes % 4.5 %; Mean Corpuscular HGB Conc 32.5 g/dL (30.0-36.0); Mean Corpuscular Hemoglobin 33.9 pg (28.0-34.0); Mean Corpuscular Volume 104.3 fl (80-94); Mean Platelet Volume 9.3 fL (7.4-10.4); Monocytes # 0.5 10^3/uL (0.2-0.9); Neutrophils # 4.03 10^3/uL (1.8-7.7); Neutrophils % 82.1 %; Nucleated Red Blood Cells % 0 %; Platelet Count 258 10^3/cmm (130-400); Red Blood Count 3.04 10^6/uL (4.1-5.3); Red Cell Distribution Width 14.2 % (12.1-15.1); White Blood Count 4.9 10^3/uL (4.0-10.0)
[2022-07-06 08:49] LABS: Alanine Aminotransferase 7 U/L (0-41); Albumin Level 3.8 g/dL (3.5-5.2); Alkaline Phosphatase 119 U/L (40-130); Anion Gap 12.1 (5-19); Aspartate Amino Transferase 10 U/L (0-40); Blood Urea Nitrogen 19 mg/dL (8-23); Carbon Dioxide 29 mmol/L (22-29); Chloride 104 mmol/L (98-107); Globulin 1.8 g/dL (1.3-4.6); Glucose 120 mg/dL (65-115); Lactate Dehydrogenase 175 U/L (135-225); Osmolality Calculated 295 mOsm/kg (285-295); Potassium 4.1 mmol/L (3.5-5.1); Sodium 141 mmol/L (136-145); Total Bilirubin 0.4 mg/dL (0.15-1.2); Total Protein 5.6 g/dL (6.6-8.7)
[2022-07-06] MEDS: iohexol 350 mg/mL 500 mL Btl (per mL) IV (09:27)
--- NOTE | 2022-07-06 09:30 | CT_ITS ---
WS: [id number] CT CHEST, ABDOMEN, AND PELVIS TECHNIQUE: Contrast-enhanced CT of the chest, abdomen, and pelvis with coronal and sagittal reformatt ed images. CLINICAL INFORMATION: lymphoma COMPARISON: PET/CT March 19, 2022 DLP: 1246.[address] scans at [facility] use at least one of these dose optimization techniques: automated e xposure control; mA and/or kV adjustment per patient size (includes targeted exams where dose is matc hed to clinical indication); or iterative reconstruction. CT CHEST ABDOMEN PELVIS: Mild chronic emphysematous changes. No acute pulmonary infiltrates. No focal pneumonia or pleural flu id. Normal caliber thoracic aorta. Aortic Calcification. Proximal main pulmonary arteries are patent. No mediastinal or hilar lymphadenopathy. Tiny esophageal hiatal hernia. No axillary lymphadenopathy. Adrenal glands are normal. Low-attenuation lesions in the liver likely hepatic cysts. These are uncha nged compared to the prior studies. Normal portal vein and splenic vein. Fatty atrophy of the pancrea s. Normal spleen. Normal caliber abdominal aorta. Celiac and SMA are patent. Enlarged heterogeneous enhancing prostate measuring 5.5 CM. Thickening of the seminal vesicles bilate rally. Bladder cystocele. Evidence of bladder outlet obstruction. Normal gallbladder. No periaortic or retroperitoneal lymphadenopathy. No inguinal lymphadenopathy. No evidence of high-grade small or large bowel obstruction. Adrenal glands are normal. Normal renal par enchymal enhancement. No hydronephrosis. Stable RIGHT renal cyst measuring 2.1 Cm. Additional smaller RIGHT renal cyst. Moderate thoracic kyphosis. Diffuse mixed lytic and sclerotic bony lesions throughout the visualized bony structures more prominent in the lower thoracic and lumbar spine. These are similar to the prior study. Dominant RIGHT iliac lesion appears stable. Stable LEFT 8th posterior rib lesion. CT/CT chest abd pel w con* IMPRESSION: 1. No evidence of progressed disease in the chest abdomen or pelvis. 2. Numerous lytic and sclerotic osseous lesions are stable. Stable dominant RI GHT iliac lesions. 3. No evidence of new or progressed lymphadenopathy in the chest abdomen or pe lvis. No axillary lymphadenopathy. 4. Enlarged prostate measuring 5.5 CCM. Bladder cystocele evidence of bladder outlet obstruction. Recommend correlation PSA. 5. No other remarkable changes compared to previous.
[2022-07-08 10:09] LABS: Iron 47 ug/dL (59-158); Total Iron Binding Capacity 188 mcg/dl; Unsaturated Iron Binding 141 ug/dL (112-347)
[2022-07-08 10:28] LABS: Ferritin 1511 ng/mL (30-400)
== END 2022-07-06 07:45 | disposition home or self-care (01) ==
LOC: ONCMED 07:45
PROVIDERS: Nurse Practitioner; PCP Emergency Medicine Emergency Medical Services; Visit Provider Internal Medicine Medical Oncology
DX: C83.39 Diffuse large B-cell lymphoma, extranodal and solid organ sites (principal)
CPT/HCPCS: 36415; 71260; 74177; 80053; 82728; 83540; 83550; 83615; 85025; Q9967

== ENCOUNTER → 2022-07-08 07:47 | Outpatient (BNVA) | payer OTHER, SELFPAY | PROVIDERS: PCP Emergency Medicine Emergency Medical Services; Visit Provider Internal Medicine Medical Oncology | DX: C83.39 Diffuse large B-cell lymphoma, extranodal and solid organ sites (principal); C79.51 Secondary malignant neoplasm of bone; D80.1 Nonfamilial hypogammaglobulinemia; Z79.899 Other long term (current) drug therapy; N40.0 Benign prostatic hyperplasia without lower urinary tract symptoms; Z92.21 Personal history of antineoplastic chemotherapy; Z92.3 Personal history of irradiation | CPT/HCPCS: 99214 ==

== ENCOUNTER 2022-08-16 11:36 | Oncology outpatient (recurring) (ONCR) | payer OTHER, SELFPAY ==
[2022-08-16 12:30] LABS: Basophils % 0.2 %; Eosinophils # 0.1 10^3/uL (0.0-0.8); Eosinophils % 2.7 %; Hemoglobin 11.2 g/dL (11.7-16.6); Lymphocytes # 0.3 10^3/uL (0.8-4.8); Lymphocytes % 5.7 %; Mean Corpuscular Hemoglobin 33.8 pg (28.0-34.0); Mean Corpuscular Volume 105.7 fl (80-94); Mean Platelet Volume 10.4 fL (7.4-10.4); Monocytes # 0.4 10^3/uL (0.2-0.9); Neutrophils # 4.21 10^3/uL (1.8-7.7); Neutrophils % 82.4 %; Nucleated Red Blood Cells % 0 %; Platelet Count 214 10^3/cmm (130-400); Red Blood Count 3.31 10^6/uL (4.1-5.3); Red Cell Distribution Width 13.3 % (12.1-15.1); White Blood Count 5.1 10^3/uL (4.0-10.0)
[2022-08-16 13:18] LABS: Alanine Aminotransferase 12 U/L (0-41); Albumin Level 3.5 g/dL (3.5-5.2); Alkaline Phosphatase 127 U/L (40-130); Blood Urea Nitrogen 25 mg/dL (8-23); Calcium 9.1 mg/dL (8.5-10.5); Carbon Dioxide 25 mmol/L (22-29); Chloride 102 mmol/L (98-107); Globulin 2.5 g/dL (1.3-4.6); Glucose 102 mg/dL (65-115); Iron 53 ug/dL (59-158); Osmolality Calculated 289 mOsm/kg (285-295); Sodium 137 mmol/L (136-145); Total Bilirubin 0.3 mg/dL (0.15-1.2); Vitamin B12 845 pg/mL (232-1245)
[2022-08-16 13:20] LABS: Anion Gap 14.5 (5-19); Percent Saturation 26.6 % (20-50); Potassium 4.5 mmol/L (3.5-5.1); Total Iron Binding Capacity 199 mcg/dl; Unsaturated Iron Binding 146 ug/dL (112-347)
[2022-08-16 13:21] LABS: Aspartate Amino Transferase 24 U/L (0-40); Lactate Dehydrogenase 339 U/L (135-225)
== END 2022-08-23 23:59 | disposition home or self-care (01) ==
PROVIDERS: PCP Emergency Medicine Emergency Medical Services; Visit Provider Internal Medicine Medical Oncology
DX: C83.38 Diffuse large B-cell lymphoma, lymph nodes of multiple sites (principal); C79.51 Secondary malignant neoplasm of bone; D70.9 Neutropenia, unspecified; R78.81 Bacteremia; B95.7 Other staphylococcus as the cause of diseases classified elsewhere; D50.9 Iron deficiency anemia, unspecified; K21.9 Gastro-esophageal reflux disease without esophagitis; Z79.2 Long term (current) use of antibiotics; Z79.899 Other long term (current) drug therapy; Z87.891 Personal history of nicotine dependence
CPT/HCPCS: 36415; 80053; 82607; 83540; 83550; 83615; 84153; 85025; 99214

== ENCOUNTER 2022-11-07 11:42 | Oncology outpatient (recurring) (ONCR) | payer OTHER, SELFPAY ==
[2022-11-07 12:33] LABS: Basophils % 0.2 %; Eosinophils # 0.1 10^3/uL (0.0-0.8); Hemoglobin 10.8 g/dL (11.7-16.6); Lymphocytes # 0.3 10^3/uL (0.8-4.8); Lymphocytes % 5.2 %; Mean Corpuscular HGB Conc 32.7 g/dL (30.0-36.0); Mean Corpuscular Volume 106.8 fl (80-94); Mean Platelet Volume 9.5 fL (7.4-10.4); Monocytes # 0.5 10^3/uL (0.2-0.9); Monocytes % 9.8 %; Neutrophils % 81.6 %; Nucleated Red Blood Cells % 0 %; Platelet Count 170 10^3/cmm (130-400); Red Blood Count 3.09 10^6/uL (4.1-5.3); Red Cell Distribution Width 14.2 % (12.1-15.1)
[2022-11-07 12:54] LABS: Alanine Aminotransferase 13 U/L (0-41); Alkaline Phosphatase 114 U/L (40-130); Anion Gap 15.6 (5-19); Aspartate Amino Transferase 17 U/L (0-40); Blood Urea Nitrogen 29 mg/dL (8-23); Calcium 8.8 mg/dL (8.5-10.5); Carbon Dioxide 25 mmol/L (22-29); Chloride 103 mmol/L (98-107); Globulin 1.7 g/dL (1.3-4.6); Glucose 97 mg/dL (65-115); Iron 72 ug/dL (59-158); Lactate Dehydrogenase 235 U/L (135-225); Osmolality Calculated 294 mOsm/kg (285-295); Percent Saturation 36.1 % (20-50); Potassium 4.6 mmol/L (3.5-5.1); Sodium 139 mmol/L (136-145); Total Bilirubin 0.3 mg/dL (0.15-1.2); Total Iron Binding Capacity 199 mcg/dl; Total Protein 5.7 g/dL (6.6-8.7); Unsaturated Iron Binding 127 ug/dL (112-347)
[2022-11-07 14:41] LABS: Vitamin B12 1056 pg/mL (232-1245)
== END 2022-11-23 23:59 | disposition home or self-care (01) ==
PROVIDERS: PCP Emergency Medicine Emergency Medical Services; Visit Provider Internal Medicine Medical Oncology
DX: C83.39 Diffuse large B-cell lymphoma, extranodal and solid organ sites (principal); C79.51 Secondary malignant neoplasm of bone; D64.9 Anemia, unspecified; Z79.2 Long term (current) use of antibiotics; Z79.899 Other long term (current) drug therapy; Z87.891 Personal history of nicotine dependence
CPT/HCPCS: 80053; 82607; 83540; 83550; 83615; 85025; 99214

== ENCOUNTER 2023-01-09 12:26 | Outpatient (CLI) | payer OTHER, SELFPAY ==
[2023-01-09] MEDS: iohexol 350 mg/mL 500 mL Btl (per mL) PO (12:55)
--- NOTE | 2023-01-09 13:30 | CTR_ITS ---
PROCEDURE INFORMATION: Exam: CT Chest With Contrast; Diagnostic Exam date and time: 01/09/2023 2:18 PM Age: 82 years old Clinical indication: Condition or disease; Other: Lumphoma, bone; Other: Lymphoma bone cancer; Prior surgery; Surgery date: 6+ months; Surgery type: Colorectal; Additional info: Follow up TECHNIQUE: Imaging protocol: Diagnostic computed tomography of the chest with contrast. Radiation optimization: All CT scans at this facility use at least one of these dose optimization techniques: automated exposure control; mA and/or kV adjustment per patient size (includes targeted exams where dose is matched to clinical indication); or iterative reconstruction. Contrast material: OMNI 350; Contrast volume: 95 ml; Contrast route: INTRAVENOUS (IV); REPORTING DATA: Count of CT and Cardiac NM exams in prior 12 months: This patient has received 9 known CTs and 0 known cardiac nuclear medicine studies in the 12 months prior to the current study. COMPARISON: CT chest abdpel w/*[id number] 07/06/2022 9:16 AM RADIATION DOSE METRICS: Total DLP (mGy-cm): 1370.57 FINDINGS: Lungs: Emphysematous changes. Pleural spaces: Unremarkable. No pneumothorax. No pleural effusion. Heart: Unremarkable. No cardiomegaly. No pericardial effusion. Coronary arteries: Coronary artery atherosclerotic calcifications. Lymph nodes: Unremarkable. No enlarged lymph nodes. Vasculature: Unremarkable. No aortic aneurysm. Bones/joints: Unremarkable. No acute fracture. Soft tissues: Unremarkable. PROCEDURE INFORMATION: Exam: CT Abdomen And Pelvis With Contrast Exam date and time: 01/09/2023 2:18 PM Age: 82 years old Clinical indication: Condition or disease; Other: Lumphoma, bone; Other: Lymphoma bone cancer; Prior surgery; Surgery date: 6+ months; Surgery type: Colorectal; Additional info: Follow up TECHNIQUE: Imaging protocol: Computed tomography of the abdomen and pelvis with contrast. Radiation optimization: All CT scans at this facility use at least one of these dose optimization techniques: automated exposure control; mA and/or kV adjustment per patient size (includes targeted exams where dose is matched to clinical indication); or iterative reconstruction. Contrast material: OMNI 350; Contrast volume: 95 ml; Contrast route: INTRAVENOUS (IV); REPORTING DATA: Count of CT and Cardiac NM exams in prior 12 months: This patient has received 9 known CTs and 0 known cardiac nuclear medicine studies in the 12 months prior to the current study. COMPARISON: CT chest abdpel w/*[id number] 07/06/2022 9:16 AM RADIATION DOSE METRICS: Total DLP (mGy-cm): 1370.57 FINDINGS: Liver: Hepatic steatosis. Scattered hepatic cysts. Gallbladder and bile ducts: Normal. No calcified stones. No ductal dilation. Pancreas: Normal. No ductal dilation. Spleen: Normal. No splenomegaly. Adrenal glands: Normal. No mass. Kidneys and ureters: Right kidney cyst, negative for follow-up advised. Minimal perinephric edema bilaterally likely reflecting renal insufficiency. Stomach and bowel: Constipation. Appendix: No evidence of appendicitis. Intraperitoneal space: Unremarkable. No free air. No significant fluid collection. Vasculature: Unremarkable. No abdominal aortic aneurysm. Lymph nodes: Unremarkable. No enlarged lymph nodes. Urinary bladder: 8.8 mm depending urinary bladder calculus. Reproductive: Prostate gland enlarged in the base urinary bladder. Bones/joints: Unremarkable. No acute fracture. Soft tissues: Unremarkable. CT/CT chest abdpel w/*[id number] IMPRESSION: 1. Negative for adenopathy or mass lesion. 2. Coronary artery atherosclerotic calcifications. 3. Emphysematous changes. IMPRESSION: 1. Negative for adenopathy or mass lesion. 2. Hepatic steatosis. 3. Scattered hepatic cysts. 4. Constipation. 5. Right kidney cyst, negative for follow-up advised. 6. Prostate gland enlarged in the base urinary bladder. 7. 8.8 mm depending urinary bladder calculus. 8. Minimal perinephric edema bilaterally likely reflecting renal insufficiency. COMMENTS: Consistent with the [employer]'s Incidental Findings Committee white paper (J Am Hamzah Radiol 2018): Any incidental renal lesion less than 1 cm or classified as too small to characterize, or any incidental cystic renal lesion characterized as simple-appearing, is likely benign. No follow-up imaging is recommended for these lesions per consensus recommendations based on imaging criteria.
[2023-01-09 14:17] LABS: Blood Urea Nitrogen 27 mg/dL (8-23)
[2023-01-09] MEDS: iohexol 350 mg/mL 500 mL Btl (per mL) IV (14:39)
== END 2023-01-09 12:27 | disposition home or self-care (01) ==
PROVIDERS: PCP Emergency Medicine Emergency Medical Services; Visit Provider Internal Medicine Medical Oncology
DX: C83.39 Diffuse large B-cell lymphoma, extranodal and solid organ sites (principal); K76.0 Fatty (change of) liver, not elsewhere classified; K76.89 Other specified diseases of liver; N40.0 Benign prostatic hyperplasia without lower urinary tract symptoms; K59.00 Constipation, unspecified; N28.1 Cyst of kidney, acquired
CPT/HCPCS: 71260; 74177; 82565; 84520; Q9967

== ENCOUNTER → 2023-01-30 13:44 | Outpatient (BNVA) | payer MEDICARE, OTHER, SELFPAY | PROVIDERS: PCP Emergency Medicine Emergency Medical Services; Visit Provider Podiatrist Foot & Ankle Surgery | DX: L60.8 Other nail disorders (principal); G60.9 Hereditary and idiopathic neuropathy, unspecified; M20.21 Hallux rigidus, right foot; M20.22 Hallux rigidus, left foot; L60.1 Onycholysis | CPT/HCPCS: 99213 ==

== ENCOUNTER 2023-02-08 10:41 | Oncology outpatient (recurring) (ONCR) | payer MEDICARE, OTHER, SELFPAY ==
[2023-02-08 10:48] VITALS: BP 134/57; PULSE 71; RESP 18; TEMP 36.9; O2SAT 97
[2023-02-08 10:59] LABS: Basophils % 0.2 %; Eosinophils # 0.1 10^3/uL (0.0-0.8); Eosinophils % 1.3 %; Hematocrit 37.1 % (42.0-52.0); Hemoglobin 11.8 g/dL (11.7-16.6); Lymphocytes # 0.3 10^3/uL (0.8-4.8); Lymphocytes % 4.9 %; Mean Corpuscular HGB Conc 31.8 g/dL (30.0-36.0); Mean Corpuscular Hemoglobin 32.1 pg (28.0-34.0); Mean Corpuscular Volume 100.8 fl (80-94); Mean Platelet Volume 9.8 fL (7.4-10.4); Monocytes # 0.5 10^3/uL (0.2-0.9); Monocytes % 8.3 %; Neutrophils # 5.18 10^3/uL (1.8-7.7); Neutrophils % 84.5 %; Nucleated Red Blood Cells % 0 %; Platelet Count 208 10^3/cmm (130-400); Red Blood Count 3.68 10^6/uL (4.1-5.3); Red Cell Distribution Width 12.6 % (12.1-15.1); White Blood Count 6.1 10^3/uL (4.0-10.0)
[2023-02-08 11:34] LABS: Alanine Aminotransferase 11 U/L (0-41); Alkaline Phosphatase 132 U/L (40-130); Aspartate Amino Transferase 16 U/L (0-40); Blood Urea Nitrogen 30 mg/dL (8-23); Calcium 8.9 mg/dL (8.5-10.5); Carbon Dioxide 28 mmol/L (22-29); Chloride 103 mmol/L (98-107); Globulin 1.9 g/dL (1.3-4.6); Glucose 99 mg/dL (65-115); Osmolality Calculated 296 mOsm/kg (285-295); Sodium 140 mmol/L (136-145); Total Bilirubin 0.4 mg/dL (0.15-1.2); Total Protein 5.9 g/dL (6.6-8.7)
[2023-02-08 11:42] LABS: Anion Gap 13.6 (5-19); Lactate Dehydrogenase 235 U/L (135-225); Potassium 4.6 mmol/L (3.5-5.1)
[2023-02-08 13:19] LABS: Folate Level > 20.0 ng/mL (4.5-32.2)
== END 2023-02-23 23:59 | disposition home or self-care (01) ==
PROVIDERS: PCP Emergency Medicine Emergency Medical Services; Visit Provider Internal Medicine Medical Oncology
DX: C83.39 Diffuse large B-cell lymphoma, extranodal and solid organ sites (principal); D64.9 Anemia, unspecified; R78.81 Bacteremia; C79.51 Secondary malignant neoplasm of bone; D70.1 Agranulocytosis secondary to cancer chemotherapy; T45.1X5A Adverse effect of antineoplastic and immunosuppressive drugs, initial encounter; B95.7 Other staphylococcus as the cause of diseases classified elsewhere; Z79.2 Long term (current) use of antibiotics; Z79.52 Long term (current) use of systemic steroids; Z79.899 Other long term (current) drug therapy; Z95.828 Presence of other vascular implants and grafts; G60.9 Hereditary and idiopathic neuropathy, unspecified; M20.21 Hallux rigidus, right foot; M20.22 Hallux rigidus, left foot; L60.1 Onycholysis; L60.8 Other nail disorders
CPT/HCPCS: 36415; 80053; 82746; 83615; 85025; 99213; 99214

== ENCOUNTER 2023-05-15 13:17 | Oncology outpatient (recurring) (ONCR) | payer OTHER, SELFPAY ==
[2023-05-15 12:58] VITALS: BP 132/65; PULSE 71; RESP 16; TEMP 36.9; O2SAT 97
[2023-05-15 13:18] LABS: Basophils % 0.2 %; Eosinophils # 0.1 10^3/uL (0.0-0.8); Eosinophils % 1.4 %; Hematocrit 35.3 % (37-53); Lymphocytes # 0.4 10^3/uL (0.8-4.8); Lymphocytes % 7.1 %; Mean Corpuscular Hemoglobin 32.1 pg (27-33); Mean Corpuscular Volume 100.3 fl (82-101); Mean Platelet Volume 10.1 fL (7.4-10.4); Monocytes # 0.5 10^3/uL (0.2-0.9); Monocytes % 8.6 %; Neutrophils # 4.87 10^3/uL (1.8-7.7); Neutrophils % 82.4 %; Nucleated Red Blood Cells % 0 %; Platelet Count 199 10^3/cmm (157-399); Red Blood Count 3.52 10^6/uL (3.85-5.65); Red Cell Distribution Width 13.9 % (12.1-15.1); White Blood Count 5.91 10^3/uL (3.29-11.43)
[2023-05-15 13:35] LABS: Alanine Aminotransferase 18 U/L (0-41); Albumin Level 3.7 g/dL (3.5-5.2); Alkaline Phosphatase 113 U/L (40-130); Anion Gap 11.7 (5-19); Aspartate Amino Transferase 15 U/L (0-40); Blood Urea Nitrogen 25 mg/dL (8-23); Calcium 9.2 mg/dL (8.5-10.5); Carbon Dioxide 28 mmol/L (22-29); Chloride 105 mmol/L (98-107); Globulin 2.1 g/dL (1.3-4.6); Glucose 98 mg/dL (65-115); Lactate Dehydrogenase 186 U/L (135-225); Osmolality Calculated 294 mOsm/kg (285-295); Potassium 4.7 mmol/L (3.5-5.1); Sodium 140 mmol/L (136-145); Total Bilirubin 0.3 mg/dL (0.15-1.2); Total Protein 5.8 g/dL (6.6-8.7)
== END 2023-05-25 23:59 | disposition home or self-care (01) ==
PROVIDERS: PCP Emergency Medicine Emergency Medical Services; Visit Provider Internal Medicine Medical Oncology
DX: C83.39 Diffuse large B-cell lymphoma, extranodal and solid organ sites (principal); D64.9 Anemia, unspecified; R78.81 Bacteremia; C79.51 Secondary malignant neoplasm of bone; D70.1 Agranulocytosis secondary to cancer chemotherapy; T45.1X5A Adverse effect of antineoplastic and immunosuppressive drugs, initial encounter; B95.7 Other staphylococcus as the cause of diseases classified elsewhere; Z79.2 Long term (current) use of antibiotics; Z79.52 Long term (current) use of systemic steroids; Z79.899 Other long term (current) drug therapy; Z95.828 Presence of other vascular implants and grafts; G60.9 Hereditary and idiopathic neuropathy, unspecified; M20.21 Hallux rigidus, right foot; M20.22 Hallux rigidus, left foot; L60.1 Onycholysis; L60.8 Other nail disorders; D80.1 Nonfamilial hypogammaglobulinemia
CPT/HCPCS: 36415; 80053; 83615; 85025; 99214

== ENCOUNTER 2023-05-25 13:08 | Outpatient (CLI) | payer OTHER, SELFPAY ==
--- NOTE | 2023-05-25 13:30 | US_ITS ---
WS: [id number] ULTRASOUND SOFT TISSUES RIGHT upper extremity. HISTORY: right upper arm mass COMPARISON: None available. TECHNIQUE: 2-D and color Doppler imaging is submitted. Palpable area along the lateral RIGHT upper extremity corresponds to a nearly isoechoic mass within t he soft tissues measuring 4.3 x 1.2 x 3.5 cm. This is most consistent with a benign lipoma. No increa sed vascularity. IMPRESSION: Benign appearing lipoma soft tissues of the RIGHT upper extremity.
== END 2023-05-25 13:09 | disposition home or self-care (01) ==
LOC: RAD 13:08
PROVIDERS: Absent Provider Family Medicine; PCP Emergency Medicine Emergency Medical Services; Visit Provider Internal Medicine Medical Oncology
DX: D17.21 Benign lipomatous neoplasm of skin and subcutaneous tissue of right arm (principal)
CPT/HCPCS: 76882

== ENCOUNTER → 2023-05-30 14:18 | Outpatient (BNVA) | payer OTHER, SELFPAY | PROVIDERS: PCP Emergency Medicine Emergency Medical Services; Visit Provider Student in an Organized Health Care Education/Training Program | DX: M25.511 Pain in right shoulder; M12.811 Other specific arthropathies, not elsewhere classified, right shoulder | CPT/HCPCS: 20610; 73030; 99204; J3301 ==

== ENCOUNTER → 2023-07-13 13:50 | Outpatient (BNVA) | payer OTHER, SELFPAY | PROVIDERS: PCP Emergency Medicine Emergency Medical Services; Referring Provider Emergency Medicine Emergency Medical Services; Visit Provider Surgery | DX: D64.9 Anemia, unspecified (principal); K92.2 Gastrointestinal hemorrhage, unspecified | CPT/HCPCS: 99204; 99214 ==

== ENCOUNTER 2023-07-14 09:44 | Outpatient (CLI) | payer OTHER, SELFPAY | END 2023-07-14 09:45 | disposition home or self-care (01) | LOC: LAB 09:45 | PROVIDERS: PCP Emergency Medicine Emergency Medical Services; Visit Provider Surgery | DX: D64.9 Anemia, unspecified (principal); K92.2 Gastrointestinal hemorrhage, unspecified | CPT/HCPCS: 82274 ==

== ENCOUNTER 2023-07-21 13:17 | Outpatient (CLI) | payer OTHER, MEDICARE, SELFPAY ==
--- NOTE | 2023-07-21 14:30 | CT_ITS ---
WS: [id number] CT CHEST, ABDOMEN, AND PELVIS TECHNIQUE: Contrast-enhanced CT of the chest, abdomen, and pelvis with coronal and sagittal reformatt ed images. CLINICAL INFORMATION: compare to previous COMPARISON: 01/09/2023 and 07/06/2022 DLP: 1336.[address] scans at [facility] use at least one of these dose optimization techniques: automated e xposure control; mA and/or kV adjustment per patient size (includes targeted exams where dose is matc hed to clinical indication); or iterative reconstruction. CT CHEST: The lungs are well aerated. Advanced chronic emphysematous changes. No acute pulmonary infiltrates. S light bibasilar atelectasis. No new suspicious pulmonary parenchymal abnormalities. Tiny noncalcified nodule RIGHT middle lobe measuring 3 mm is stable. Aortic calcification. Proximal pulmonary arteries are patent. No mediastinal or hilar lymphadenopathy . No axillary lymphadenopathy. Moderate thoracic kyphosis. Advanced spondylitic changes thoracic spin e. Stable mottled lytic and sclerotic lesions in the thoracic spine appear unchanged. CT ABDOMEN AND PELVIS: A few small incidental hepatic cysts. Normal gallbladder. Normal spleen. Normal GE junction. Adrenal glands are normal. Normal renal parenchymal enhancement. No hydronephrosis. Stable RIGHT renal cyst. Fatty atrophy of the pancreas. Normal portal vein and splenic vein. Tiny fat-containing umbilical hernia. Bladder cystocele. Marked enlargement of the prostate measuring 6.4 x 4.6 cm similar to previous. Recommend correlation PSA. Mild thickening of the seminal vesicles bilaterally. Rectal constipation. Mixed lytic and sclerotic metastasis in the pelvic bony structures are similar i n appearance. Lumbar bony metastasis similar in appearance compared to previous. IMPRESSION: 1. No evidence of new or progressed disease in the chest abdomen or pelvis. 2. No lymphadenopathy in the chest abdomen or pelvis. 3. Numerous lytic and sclerotic osseous lesions are stable. Stable dominant RIGHT iliac lesions. 4. Markedly enlarged prostate. Recommend correlation PSA. 5. No other suspicious findings.
[2023-07-21 15:03] LABS: Blood Urea Nitrogen 27 mg/dL (8-23)
[2023-07-21] MEDS: iohexol 350 mg/mL 500 mL Btl (per mL) IV (17:07)
[2023-07-21] MEDS: iohexol 350 mg/mL 500 mL Btl (per mL) PO (17:07)
== END 2023-07-21 13:18 | disposition home or self-care (01) ==
PROVIDERS: PCP Emergency Medicine Emergency Medical Services; Visit Provider Internal Medicine Medical Oncology
DX: C83.39 Diffuse large B-cell lymphoma, extranodal and solid organ sites (principal); M89.9 Disorder of bone, unspecified
CPT/HCPCS: 71260; 74177; 82565; 84520; Q9967

== ENCOUNTER 2023-07-27 07:09 | Day surgery (SDC) | payer OTHER, SELFPAY ==
--- NOTE | 2023-07-27 07:25 | P.HPUD_ITS ---
Surgery/Procedure H&P Update DATE OF PROCEDURE: July 27, 2023 DATE H&P PERFORMED: 07/13/22 PLANNED PROCEDURE: Operation Date: 07/27/23 08:20 Proposed Procedures p [id number] egd D64.9(Not Applicable) - Lisandro Garcia MD
--- NOTE | 2023-07-27 07:25 | W.PM.OPSUD ---
Surgery/Procedure H&P Update DATE OF PROCEDURE: July 27, 2023 DATE H&P PERFORMED: 07/13/22 PLANNED PROCEDURE: Operation Date: 07/27/23 08:20 Proposed Procedures p [id number] egd D64.9(Not Applicable) - Lisandro Garcia MD
[2023-07-27 07:34] VITALS: BP 133/67; PULSE 76; RESP 18; TEMP 36.9; O2SAT 96; BMI 26.4
--- NOTE | 2023-07-27 07:37 | ANES.PREANE2 ---
Pre-Anesthetic Assessment Height/Weight: Height 1.88 m Operation Date: 07/27/23 08:20 Proposed Procedures p [id number] egd D64.9(Not Applicable) - Lisandro Garcia MD Was Beta Sabra taken within 24 hours: N/A Was Clonidine taken within 24 hours: N/A Social No alcohol and No tobacco Exam alert, oriented x 3, clear to auscultation bilaterally and regular rate & rhythm Airway Submandibular: within normal limits Cervical ROM: within normal limits Mallampati: Class II History/ROS No significant history except as noted and No significant complaints Pulmonary None reported CV/HEM None reported hx Afib Hepatic None reported GI None reported gerd but controlled Metabolic None reported Musc/skel None reported Neuropsych None reported Anesthetic Plan ASA status: 3 Anesthesia: MAC Risk of > 500 ml blood loss (7ml/kg in children): Yes, adequate IV access and fluids planned Other Pertinent Information hx lymphoma Medications/Allergies Home Medications Medication Instructions Recorded Confirmed Last Taken Type tamsulosin 0.4 mg capsule 0.4 mg PO QPM 07/01/19 07/25/23 07/24/23 History sennosides 8.6 mg-docusate sodium 2 tab PO BID PRN Constipation 02/10/22 07/25/23 Unknown History 50 mg tablet (Senokot-S) hydrocodone 5 mg-acetaminophen 300 1 tab PO Q4H PRN pain 30 days #60 02/24/22 07/25/23 Unknown Rx mg tablet tabs zmcsulck-cmk-vialr acid 0.4 1 tab PO DAILY 08/16/22 07/25/23 07/24/23 History mg-lycopene 300 mcg-lutein 250 mcg tablet (Centrum Silver) folic acid 1 mg tablet 1 mg PO DAILY 11/07/22 07/25/23 07/26/23 17:00 History acetaminophen 500 mg tablet 500 mg PO Q6H PRN Pain 02/08/23 07/25/23 07/26/23 History (Tylenol Extra Strength) lactulose 10 gram oral packet 10 g PO DAILY PRN constipation 05/15/23 07/25/23 Unknown History polyethylene glycol 3350 17 4 g PO DAILY PRN laxative effect 05/15/23 07/25/23 Unknown History gram/dose oral powder (Miralax) zinc oxide 10 % topical cream 1 applic topical BID 05/15/23 07/25/2324 History midodrine 2.5 mg tablet 2.5 mg PO TID 07/25/23 07/25/23 07/26/23 17:00 History omeprazole 40 mg capsule,delayed 40 mg PO DAILY 07/25/23 07/25/23 07/25/23 History release Allergies Allergy/AdvReac Type Severity Reaction Status Date / Time Opioids - Morphine Analogues Allergy Severe ADR/ALGY-Hy Verified 07/25/23 09:02 potension meperidine [From Demerol] Allergy Mild ADR/ALGY-Hy Verified 07/25/23 09:02 potension PFSH Anesthesia Medical History Bladder wall thickening Urinary retention Protein-energy malnutrition Diffuse large B-cell lymphoma of extranodal site History of fracture of clavicle Decubitus skin ulcer 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 Otoole S/P lymph node biopsy (11/17/21) Core needle biopsy of left supraclavicular lymph node Status post surgical removal of malignant neoplasm of skin S/P arthroscopic surgery of left knee Hx of repair of rotator cuff History of cataract surgery Bilateral cataract excisions Family History Father Cancer Brother Diabetes Denies family history of CAD (coronary artery disease) Clotting disorder Dementia Hyperlipidemia Psychiatric illness Chronic kidney disease (CKD) Suicide Anesthesia complication Bleeding disorder Family history of premature coronary artery disease Lung disease Hypertension Stroke Social History Smoking and tobacco/nicotine status: former use of tobacco/nicotine Quit status (tobacco/nicotine): has quit using Year quit tobacco: 1994 Former quit date comment: smoked 20 years Second hand smoke exposure: Yes Alcohol intake: never Substance/Drug Use: never Adopted: No Caregiver/support person: No Lives independently: Yes Household members: spouse Housing: Other Details: Rehabbing at [facility] Marital status: Current occupational status: retired Current occupational exposures/hazards: No Do you think of yourself as: Straight/Heterosexual Current gender identity: Male Data Anesthesia Cardiac Studies: Echocardiogram 04/27/22
[2023-07-27] MEDS: sodium chloride 0.9% 1,000 ML 30 ML IV (07:41)
[2023-07-27 08:16] VITALS: BP 110/60; PULSE 69; RESP 18; TEMP 36.8; O2SAT 92
[2023-07-27 08:26] VITALS: BP 112/58; PULSE 69; RESP 18; O2SAT 93
[2023-07-27 08:36] VITALS: BP 119/62; PULSE 68; RESP 16; O2SAT 94
--- NOTE | 2023-07-27 09:00 | ANE.PACU2 ---
Inpatient post-anesthesia follow up: Airway intact: Yes Vital signs: Temperature 98.2 F Pulse Rate 68 Respiratory Rate 16 Blood Pressure 119/62 Pulse Oximetry 94 Oxygen Delivery Me thod Room Air Oxygen Flow Rate Fraction of Inspir ed Oxygen Hydration adequate: Yes Nausea and vomiting: No Pain level: 1 Mental status: Baseline
== END 2023-07-27 08:59 | disposition home or self-care (01) ==
PROVIDERS: PCP Emergency Medicine Emergency Medical Services; Visit Provider Surgery
PROC: 0DJ08ZZ Inspection of Upper Intestinal Tract, Via Natural or Artificial Opening Endoscopic (ICD-10-PCS; CPT 43235; principal; 2023-07-27 08:20)
DX: D50.9 Iron deficiency anemia, unspecified (principal); I48.91 Unspecified atrial fibrillation; N40.0 Benign prostatic hyperplasia without lower urinary tract symptoms; Z87.891 Personal history of nicotine dependence
CPT/HCPCS: 43239; 88305; J2704; J7030

== ENCOUNTER → 2023-08-09 15:27 | Outpatient (BNVA) | payer OTHER, SELFPAY | PROVIDERS: PCP Emergency Medicine Emergency Medical Services; Visit Provider Surgery | DX: Z09 Encounter for follow-up examination after completed treatment for conditions other than malignant neoplasm (principal) | CPT/HCPCS: 99212 ==

== ENCOUNTER 2023-08-10 13:51 | Oncology outpatient (recurring) (ONCR) | payer OTHER, SELFPAY ==
[2023-08-10 14:21] LABS: Basophils % 0.3 %; Eosinophils # 0.1 10^3/uL (0.0-0.8); Eosinophils % 2.1 %; Lymphocytes # 0.5 10^3/uL (0.8-4.8); Lymphocytes % 6.7 %; Mean Corpuscular HGB Conc 31.4 g/dL (30-55); Mean Corpuscular Hemoglobin 30.8 pg (27-33); Mean Platelet Volume 9.9 fL (7.4-10.4); Monocytes # 0.7 10^3/uL (0.2-0.9); Monocytes % 9.7 %; Neutrophils # 5.42 10^3/uL (1.8-7.7); Neutrophils % 80.8 %; Nucleated Red Blood Cells % 0 %; Platelet Count 172 10^3/cmm (157-399); Red Blood Count 3.57 10^6/uL (3.85-5.65); Red Cell Distribution Width 14.6 % (12.1-15.1); White Blood Count 6.71 10^3/uL (3.29-11.43)
[2023-08-10 14:45] LABS: Alanine Aminotransferase 11 U/L (0-41); Albumin Level 3.8 g/dL (3.5-5.2); Alkaline Phosphatase 112 U/L (40-130); Anion Gap 11.3 (5-19); Aspartate Amino Transferase 15 U/L (0-40); Blood Urea Nitrogen 27 mg/dL (8-23); Calcium 8.6 mg/dL (8.5-10.5); Carbon Dioxide 29 mmol/L (22-29); Chloride 101 mmol/L (98-107); Globulin 2.5 g/dL (1.3-4.6); Glucose 103 mg/dL (65-115); Lactate Dehydrogenase 187 U/L (135-225); Osmolality Calculated 289 mOsm/kg (285-295); Potassium 4.3 mmol/L (3.5-5.1); Sodium 137 mmol/L (136-145); Total Bilirubin 0.4 mg/dL (0.15-1.2); Total Protein 6.3 g/dL (6.6-8.7)
[2023-08-10 16:32] LABS: Iron 33 ug/dL (59-158); Percent Saturation 16.8 % (20-50); Total Iron Binding Capacity 196 mcg/dl; Unsaturated Iron Binding 163 ug/dL (112-347)
[2023-08-10 16:44] LABS: Ferritin 1369 ng/mL (30-400)
[2023-08-11 13:00] LABS: Erythrocyte Sedimentation Rate 6 mm/hr (0-10)
[2023-08-11 13:11] LABS: C Reactive Protein 36.6 mg/L (0.0-4.9)
[2023-08-15 11:24] LABS: Soluble Transferrin Receptor 1.75 mg/L (0.76-1.76)
== END 2023-08-24 23:59 | disposition home or self-care (01) ==
PROVIDERS: PCP Emergency Medicine Emergency Medical Services; Visit Provider Internal Medicine Medical Oncology
DX: C83.39 Diffuse large B-cell lymphoma, extranodal and solid organ sites (principal); D64.9 Anemia, unspecified; Z92.21 Personal history of antineoplastic chemotherapy; M25.512 Pain in left shoulder; R53.83 Other fatigue
CPT/HCPCS: 36415; 80053; 82728; 83540; 83550; 83615; 84238; 85025; 85651; 86140; 99214

== ENCOUNTER 2023-09-20 12:33 | Oncology outpatient (recurring) (ONCR) | payer OTHER, SELFPAY ==
[2023-09-20 12:52] LABS: Basophils % 0.2 %; Eosinophils # 0.1 10^3/uL (0.0-0.8); Hematocrit 36.8 % (37-53); Lymphocytes # 0.5 10^3/uL (0.8-4.8); Lymphocytes % 7.9 %; Mean Corpuscular HGB Conc 32.1 g/dL (30-55); Mean Corpuscular Hemoglobin 30.6 pg (27-33); Mean Corpuscular Volume 95.3 fl (82-101); Mean Platelet Volume 10.2 fL (7.4-10.4); Monocytes # 0.6 10^3/uL (0.2-0.9); Monocytes % 10.1 %; Neutrophils # 4.86 10^3/uL (1.8-7.7); Neutrophils % 80.5 %; Nucleated Red Blood Cells % 0 %; Platelet Count 171 10^3/cmm (157-399); Red Blood Count 3.86 10^6/uL (3.85-5.65); Red Cell Distribution Width 14.5 % (12.1-15.1); White Blood Count 6.04 10^3/uL (3.29-11.43)
[2023-09-20 13:09] LABS: Alanine Aminotransferase 14 U/L (0-41); Alkaline Phosphatase 128 U/L (40-130); Anion Gap 13.5 (5-19); Aspartate Amino Transferase 15 U/L (0-40); Blood Urea Nitrogen 25 mg/dL (8-23); C Reactive Protein 39.7 mg/L (0.0-4.9); Calcium 9.2 mg/dL (8.5-10.5); Carbon Dioxide 27 mmol/L (22-29); Chloride 102 mmol/L (98-107); Globulin 2.6 g/dL (1.3-4.6); Glucose 97 mg/dL (65-115); Lactate Dehydrogenase 185 U/L (135-225); Osmolality Calculated 290 mOsm/kg (285-295); Potassium 4.5 mmol/L (3.5-5.1); Sodium 138 mmol/L (136-145); Total Bilirubin 0.4 mg/dL (0.15-1.2); Total Protein 6.6 g/dL (6.6-8.7)
[2023-09-20 13:15] LABS: Erythrocyte Sedimentation Rate 25 mm/hr (0-10)
[2023-09-20 16:04] LABS: Iron 36 ug/dL (59-158); Percent Saturation 19.5 % (20-50); Total Iron Binding Capacity 184 mcg/dl; Unsaturated Iron Binding 148 ug/dL (112-347)
[2023-09-20 16:20] LABS: Ferritin 1166 ng/mL (30-400)
== END 2023-09-24 23:59 | disposition home or self-care (01) ==
LOC: ONCMED 12:34
PROVIDERS: PCP Emergency Medicine Emergency Medical Services; Visit Provider Internal Medicine Medical Oncology
DX: C83.39 Diffuse large B-cell lymphoma, extranodal and solid organ sites (principal); D64.9 Anemia, unspecified; R78.81 Bacteremia; C79.51 Secondary malignant neoplasm of bone; D70.1 Agranulocytosis secondary to cancer chemotherapy; T45.1X5A Adverse effect of antineoplastic and immunosuppressive drugs, initial encounter; B95.7 Other staphylococcus as the cause of diseases classified elsewhere; Z79.2 Long term (current) use of antibiotics; Z79.52 Long term (current) use of systemic steroids; Z79.899 Other long term (current) drug therapy; Z95.828 Presence of other vascular implants and grafts; G60.9 Hereditary and idiopathic neuropathy, unspecified; M20.21 Hallux rigidus, right foot; M20.22 Hallux rigidus, left foot; L60.1 Onycholysis; L60.8 Other nail disorders; D80.1 Nonfamilial hypogammaglobulinemia
CPT/HCPCS: 36415; 80053; 82728; 83540; 83550; 83615; 84238; 85025; 85651; 86140; 99214

== ENCOUNTER 2023-09-25 09:07 | Oncology outpatient (recurring) (ONCR) | payer OTHER, SELFPAY ==
[2023-09-25 11:52] LABS: Add Urine Microscopic? NO; Charge for UA Resulting for Rev
[2023-09-25 11:58] LABS: Bilirubin Urine Neg (Negative); Blood Urine Neg (Negative); Glucose Urine UA Norm (Normal); Ketones Urine Negative (Negative); Leukocyte Esterase Urine Negative (Negative); Nitrate Urine Negative (Negative); Protein Urine Neg (Negative); Specific Gravity, Urine 1.015 (1.005-1.030); Urine Appearance Clear (CLEAR); Urine Color Yellow (Yellow); Urobilinogen Urine Norm (Negative); pH Urine 6.5 (5-7)
== END 2023-10-24 23:59 | disposition home or self-care (01) ==
LOC: ONCMED 09:07
PROVIDERS: PCP Emergency Medicine Emergency Medical Services; Visit Provider Internal Medicine Medical Oncology
DX: C83.39 Diffuse large B-cell lymphoma, extranodal and solid organ sites (principal); D64.9 Anemia, unspecified; R78.81 Bacteremia; C79.51 Secondary malignant neoplasm of bone; D70.1 Agranulocytosis secondary to cancer chemotherapy; T45.1X5A Adverse effect of antineoplastic and immunosuppressive drugs, initial encounter; B95.7 Other staphylococcus as the cause of diseases classified elsewhere; Z79.2 Long term (current) use of antibiotics; Z79.52 Long term (current) use of systemic steroids; Z79.899 Other long term (current) drug therapy; Z95.828 Presence of other vascular implants and grafts; G60.9 Hereditary and idiopathic neuropathy, unspecified; M20.21 Hallux rigidus, right foot; M20.22 Hallux rigidus, left foot; L60.1 Onycholysis; L60.8 Other nail disorders; D80.1 Nonfamilial hypogammaglobulinemia
CPT/HCPCS: 36415; 81003; 87040; 87086

== ENCOUNTER → 2023-09-26 15:13 | Outpatient (BNVA) | payer OTHER, SELFPAY | PROVIDERS: PCP Emergency Medicine Emergency Medical Services; Visit Provider Student in an Organized Health Care Education/Training Program | DX: M12.811 Other specific arthropathies, not elsewhere classified, right shoulder (principal) | CPT/HCPCS: 99213 ==

== ENCOUNTER 2023-10-31 14:57 | Outpatient (CLI) | payer OTHER, SELFPAY ==
--- NOTE | 2023-10-31 15:00 | PETR_ITS ---
PROCEDURE INFORMATION: Exam: PET/CT Skull Base to Mid-thigh Exam date and time: 10/31/2023 3:30 PM Age: 83 years old Clinical indication: Condition or disease; Primary cancer: Diffuse large b cell lymphoma; Follow-up oncological assessment; Prior surgery; Surgery date: 1-6 months; Surgery type: Port; Patient HX: PT had recent fall, bruised head, left arm and left shoulder; Additional info: Restaging LABS AND CLINICAL REPORTS: Glucose: 99 mg/dl Treatment strategy for malignancy (PET staging): Initial Staging (PI) TECHNIQUE: Imaging protocol: Following at least four-hour fasting and following the injection of radiopharmaceutical, low dose CT images were obtained. Then, PET images were obtained. Attenuation corrected images were constructed using the CT scan. Fused images of PET and CT were reviewed. The standardized uptake values (SUV) reported below are maximum values within a region of interest, expressed in gm/ml. Exam includes orbital meatal line to mid-thigh. Radiopharmaceutical: 11.59 mCi F-18 FDG (Fluorodeoxyglucose), IV. Time of imaging post radiopharmaceutical administration: 1 hour Injection site: Right wrist COMPARISON: PT PET Scan 03/19/2022 8:41 AM FINDINGS: Brain: Visualized brain has normal physiologic uptake. Pharynx: No abnormal uptake. Larynx: No abnormal uptake. Lungs, pleura and trachea: No abnormal uptake. Heart: Normal physiologic uptake. Mediastinal space: No abnormal uptake. Liver: No abnormal uptake. Gallbladder and bile ducts: No abnormal uptake. Pancreas: No abnormal uptake. Spleen: No abnormal uptake. Adrenal glands: No abnormal uptake. Kidneys and ureters: Normal physiologic uptake. Stomach and bowel: No abnormal uptake. Vasculature: No abnormal uptake. Lymph nodes: No abnormal uptake. No lymphadenopathy in the head, neck, chest, abdomen, pelvis, and extremities. Bones/joints: No abnormal uptake in the visualized axial and appendicular skeleton. Soft tissues: No abnormal uptake in the visualized head, neck, chest, abdomen, pelvis, and extremities. [id number] IMPRESSION: No abnormal radiotracer uptake. No evidence of disease recurrence.
== END 2023-10-31 14:58 | disposition home or self-care (01) ==
LOC: RAD 14:57
PROVIDERS: Family Provider Family Medicine; PCP Emergency Medicine Emergency Medical Services; Visit Provider Internal Medicine Medical Oncology
DX: C83.39 Diffuse large B-cell lymphoma, extranodal and solid organ sites (principal)
CPT/HCPCS: 78815; A9552

== ENCOUNTER 2023-11-09 13:22 | Oncology outpatient (recurring) (ONCR) | payer OTHER, SELFPAY ==
[2023-11-09 13:39] LABS: Basophils % 0.3 %; Eosinophils # 0.1 10^3/uL (0.0-0.8); Eosinophils % 1.6 %; Hematocrit 35.4 % (37-53); Lymphocytes # 0.4 10^3/uL (0.8-4.8); Mean Corpuscular HGB Conc 31.9 g/dL (30-55); Mean Corpuscular Hemoglobin 30.6 pg (27-33); Mean Corpuscular Volume 95.9 fl (82-101); Mean Platelet Volume 10.1 fL (7.4-10.4); Monocytes # 0.5 10^3/uL (0.2-0.9); Monocytes % 8.2 %; Neutrophils # 5.05 10^3/uL (1.8-7.7); Neutrophils % 82.4 %; Nucleated Red Blood Cells % 0 %; Platelet Count 161 10^3/cmm (157-399); Red Blood Count 3.69 10^6/uL (3.85-5.65); Red Cell Distribution Width 13.9 % (12.1-15.1); White Blood Count 6.13 10^3/uL (3.29-11.43)
[2023-11-09 13:56] LABS: Alanine Aminotransferase 9 U/L (0-41); Albumin Level 3.8 g/dL (3.5-5.2); Alkaline Phosphatase 113 U/L (40-130); Anion Gap 14.1 (5-19); Aspartate Amino Transferase 14 U/L (0-40); Blood Urea Nitrogen 28 mg/dL (8-23); Calcium 8.8 mg/dL (8.5-10.5); Carbon Dioxide 29 mmol/L (22-29); Chloride 105 mmol/L (98-107); Globulin 2.6 g/dL (1.3-4.6); Glucose 116 mg/dL (65-115); Iron 38 ug/dL (59-158); Osmolality Calculated 302 mOsm/kg (285-295); Percent Saturation 20.5 % (20-50); Potassium 5.1 mmol/L (3.5-5.1); Sodium 143 mmol/L (136-145); Total Bilirubin 0.3 mg/dL (0.15-1.2); Total Iron Binding Capacity 185 mcg/dl; Total Protein 6.4 g/dL (6.6-8.7); Unsaturated Iron Binding 147 ug/dL (112-347)
[2023-11-09 14:09] LABS: Ferritin 1285 ng/mL (30-400)
[2023-11-09 15:48] LABS: Erythrocyte Sedimentation Rate 11 mm/hr (0-10)
[2023-11-09 16:03] LABS: C Reactive Protein 19.3 mg/L (0.0-4.9); Lactate Dehydrogenase 210 U/L (135-225)
== END 2023-11-24 23:59 | disposition home or self-care (01) ==
PROVIDERS: Nurse Practitioner Family; Family Provider Family Medicine; PCP Emergency Medicine Emergency Medical Services; Visit Provider Internal Medicine Medical Oncology
DX: C83.39 Diffuse large B-cell lymphoma, extranodal and solid organ sites (principal); D50.0 Iron deficiency anemia secondary to blood loss (chronic); R78.81 Bacteremia; C79.51 Secondary malignant neoplasm of bone; D70.1 Agranulocytosis secondary to cancer chemotherapy; T45.1X5A Adverse effect of antineoplastic and immunosuppressive drugs, initial encounter; B95.7 Other staphylococcus as the cause of diseases classified elsewhere; Z79.2 Long term (current) use of antibiotics; Z79.52 Long term (current) use of systemic steroids; Z79.899 Other long term (current) drug therapy; Z95.828 Presence of other vascular implants and grafts; G60.9 Hereditary and idiopathic neuropathy, unspecified; M20.21 Hallux rigidus, right foot; M20.22 Hallux rigidus, left foot; L60.1 Onycholysis; L60.8 Other nail disorders; D80.1 Nonfamilial hypogammaglobulinemia
CPT/HCPCS: 36415; 80053; 82728; 83540; 83550; 83615; 85025; 85651; 86140; 99214

== ENCOUNTER → 2024-01-09 13:15 | Outpatient (BNVA) | payer OTHER, SELFPAY | PROVIDERS: Family Provider Family Medicine; PCP Emergency Medicine Emergency Medical Services; Visit Provider Student in an Organized Health Care Education/Training Program | DX: M12.811 Other specific arthropathies, not elsewhere classified, right shoulder (principal) | CPT/HCPCS: 99214 ==

== ENCOUNTER 2024-02-07 13:33 | Oncology outpatient (recurring) (ONCR) | payer OTHER, SELFPAY ==
[2024-02-07 14:03] LABS: Basophils % 0.1 %; Eosinophils # 0.1 10^3/uL (0.0-0.8); Hematocrit 34.6 % (37-53); Lymphocytes # 0.5 10^3/uL (0.8-4.8); Lymphocytes % 6.9 %; Mean Corpuscular HGB Conc 32.1 g/dL (30-55); Mean Corpuscular Hemoglobin 30.7 pg (27-33); Mean Corpuscular Volume 95.8 fl (82-101); Mean Platelet Volume 10.1 fL (7.4-10.4); Monocytes # 0.6 10^3/uL (0.2-0.9); Monocytes % 8.6 %; Neutrophils % 83.1 %; Nucleated Red Blood Cells % 0 %; Platelet Count 144 10^3/cmm (157-399); Red Blood Count 3.61 10^6/uL (3.85-5.65); Red Cell Distribution Width 14.1 % (12.1-15.1); White Blood Count 6.86 10^3/uL (3.29-11.43)
[2024-02-07 14:22] LABS: Alanine Aminotransferase 10 U/L (0-41); Albumin Level 3.9 g/dL (3.5-5.2); Alkaline Phosphatase 122 U/L (40-130); Anion Gap 14.4 (5-19); Aspartate Amino Transferase 13 U/L (0-40); Blood Urea Nitrogen 31 mg/dL (8-23); Carbon Dioxide 26 mmol/L (22-29); Chloride 102 mmol/L (98-107); Globulin 2.2 g/dL (1.3-4.6); Glucose 117 mg/dL (65-115); Iron 24 ug/dL (59-158); Lactate Dehydrogenase 160 U/L (135-225); Osmolality Calculated 294 mOsm/kg (285-295); Percent Saturation 13.4 % (20-50); Potassium 4.4 mmol/L (3.5-5.1); Sodium 138 mmol/L (136-145); Total Bilirubin 0.4 mg/dL (0.15-1.2); Total Iron Binding Capacity 178 mcg/dl; Total Protein 6.1 g/dL (6.6-8.7); Unsaturated Iron Binding 154 ug/dL (112-347)
[2024-02-07 14:34] LABS: Ferritin 1095 ng/mL (30-400)
== END 2024-02-24 23:59 | disposition home or self-care (01) ==
PROVIDERS: Nurse Practitioner Family; Family Provider Family Medicine; PCP Emergency Medicine Emergency Medical Services; Visit Provider Internal Medicine Medical Oncology
DX: C83.39 Diffuse large B-cell lymphoma, extranodal and solid organ sites (principal); D50.0 Iron deficiency anemia secondary to blood loss (chronic); R78.81 Bacteremia; C79.51 Secondary malignant neoplasm of bone; D70.1 Agranulocytosis secondary to cancer chemotherapy; T45.1X5A Adverse effect of antineoplastic and immunosuppressive drugs, initial encounter; B95.7 Other staphylococcus as the cause of diseases classified elsewhere; Z79.2 Long term (current) use of antibiotics; Z79.52 Long term (current) use of systemic steroids; Z79.899 Other long term (current) drug therapy; Z95.828 Presence of other vascular implants and grafts; G60.9 Hereditary and idiopathic neuropathy, unspecified; M20.21 Hallux rigidus, right foot; M20.22 Hallux rigidus, left foot; L60.1 Onycholysis; L60.8 Other nail disorders; D80.1 Nonfamilial hypogammaglobulinemia
CPT/HCPCS: 36415; 80053; 82728; 83540; 83550; 83615; 84238; 85025; 99214

== ENCOUNTER → 2024-02-20 16:15 | Outpatient (BNVA) | payer OTHER, SELFPAY | PROVIDERS: Family Provider Family Medicine; PCP Emergency Medicine Emergency Medical Services; Visit Provider Student in an Organized Health Care Education/Training Program | DX: Z01.818 Encounter for other preprocedural examination (principal); M12.811 Other specific arthropathies, not elsewhere classified, right shoulder | CPT/HCPCS: 36415; 80053; 81003; 81015; 85025 ==

== ENCOUNTER 2024-02-28 07:37 | Outpatient (CLI) | payer OTHER, SELFPAY ==
--- NOTE | 2024-02-28 08:00 | CT_ITS ---
WS: [id number] CT RIGHT SHOULDER, NONCONTRAST. HISTORY: DJD SHOULDER Technique: All CT scans at [facility] use at least one of these dose optimization techniques: automated exposure control; mA and/or kV adjustment per patient size (includes targeted exams where dose is matched to clinical indication); or iterative reconstruction. DLP: 453.33 mGy.cm COMPARISON: Radiograph 05/30/2023 Moderate narrowing of the AC joint. There is a small osteophyte or bony fragment along the AC joint w hich is well-corticated. There is a small osseous density measuring 5 mm inferior to the acromion wit hin the acromiohumeral joint space. Humeral head is markedly high riding and there is extensive loss of cartilage with fraying along the humeral head. Multiple subchondral cystic changes. Remodeling of the glenoid. Marked narrowing of the glenohumeral joint. No fractures are identified. There is a sing le anchor identified in the humeral head. Severe atrophy of the supraspinatus muscle. At least moderate atrophy of the infraspinatus muscle. Sl ight atrophy of the subscapularis muscle. No destructive bone lesions. The visualized lung demonstrates mild peripheral interstitial thickening . Partially calcified 4 mm nodule RIGHT upper lobe. CT/CT shoulder RT wo con* [id number] IMPRESSION: 1. 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 Remodeling of the glenoid. 2. Moderate AC joint arthritis. 3. Well-corticated, 5 mm osseous fragment in the acromiohumeral joint space. 4. Severe atrophy of the supraspinatus muscle with at least moderate atrophy o f the infraspinatus muscle. 5. Single anchor RIGHT humeral head from prior rotator cuff repair.
== END 2024-02-28 07:38 | disposition home or self-care (01) ==
LOC: RAD 07:38
PROVIDERS: Family Provider Family Medicine; PCP Nurse Practitioner Family; Visit Provider Student in an Organized Health Care Education/Training Program
DX: M19.011 Primary osteoarthritis, right shoulder
CPT/HCPCS: 73200

== ENCOUNTER → 2024-03-05 08:05 | Outpatient (BNVA) | payer OTHER, MEDICARE, SELFPAY | PROVIDERS: Family Provider Family Medicine; PCP Nurse Practitioner Family; Visit Provider Family Medicine | DX: Z01.818 Encounter for other preprocedural examination (principal); I49.8 Other specified cardiac arrhythmias; Q24.8 Other specified congenital malformations of heart | CPT/HCPCS: 93005 ==

== ENCOUNTER 2024-03-18 18:00 | Observation (INO) | payer OTHER, SELFPAY ==
[2024-03-18] VITALS (14 sets, daily range): BP systolic 100–142; BP diastolic 48–69; PULSE 64–81; RESP 12–19; TEMP 36.2–36.7; O2SAT 91–99; BMI 26.0
[2024-03-18] MEDS: lactated ringers 500 ML IV (10:22)
[2024-03-18] MEDS: ketorolac 30 mg/mL INJ IVP (10:23)
[2024-03-18] MEDS: acetaminophen 1,000 MG/100 ML PIGGYBACK 400 MG IV (10:26)
[2024-03-18] MEDS: sodium chloride 0.9% 1,000 ML 30 ML IV (10:42)
[2024-03-18 10:46] LABS: Basophils % 0.2 %; Eosinophils # 0.1 10^3/uL (0.0-0.8); Eosinophils % 0.9 %; Hematocrit 36.5 % (37-53); Lymphocytes # 0.5 10^3/uL (0.8-4.8); Lymphocytes % 7.4 %; Mean Corpuscular HGB Conc 31.5 g/dL (30-55); Mean Corpuscular Hemoglobin 30.4 pg (27-33); Mean Corpuscular Volume 96.6 fl (82-101); Monocytes # 0.6 10^3/uL (0.2-0.9); Monocytes % 9.4 %; Neutrophils % 81.9 %; Nucleated Red Blood Cells % 0 %; Platelet Count 139 10^3/cmm (157-399); Red Blood Count 3.78 10^6/uL (3.85-5.65); Red Cell Distribution Width 13.8 % (12.1-15.1); White Blood Count 6.47 10^3/uL (3.29-11.43)
[2024-03-18 11:03] LABS: Anion Gap 13.4 (5-19); Blood Urea Nitrogen 27 mg/dL (8-23); Calcium 8.8 mg/dL (8.5-10.5); Carbon Dioxide 25 mmol/L (22-29); Chloride 106 mmol/L (98-107); Creatinine Clr Calc Pharmacy 69.3999; Glucose 99 mg/dL (65-115); Osmolality Calculated 295 mOsm/kg (285-295); Potassium 4.4 mmol/L (3.5-5.1); Sodium 140 mmol/L (136-145)
--- NOTE | 2024-03-18 12:20 | P.HPUD_ITS ---
Surgery/Procedure H&P Update DATE OF PROCEDURE: March 18, 2024 DATE H&P PERFORMED: 02/20/24 H&P UPDATE INFORMATION: I have reviewed H&P completed within last 30 days, I have examined patient prior to procedure and No changes to prior documentation CHANGES TO PREVIOUS DOCUMENTATION: No change in health since prior visits been cleared by his primary provider as well as has heme-onc physician. He is cleared preoperative clearance process no supervisor records change how since last visit no new urinary symptoms at this point in time. Patient this point time is ready to proceed with surgical intervention today for right reverse total shoulder arthroplasty. Patient understands the ins and outs procedure was benefits complication alternatives surgery and through shared decision making lacks proceed with surgical invention. All questions have been answered at this time. PREOP DIAGNOSIS: Right shoulder rotator cuff arthropathy PRIMARY INDICATION FOR PROCEDURE: Right shoulder rotator cuff arthropathy PLANNED PROCEDURE: Operation Date: 03/18/24 14:40 Proposed Procedures p Total Reverse Shoulder Arthroplasty(Right) - Durga Leone DO
--- NOTE | 2024-03-18 13:37 | PC.NURSE ---
Pt prepped for interscaline block with anesthesia pt was placed on 2L oxygen with nasal cannula and a heart monitor. The time out was performed then the block was placed. 20cc of 0.5% ropivicaine was injected into the site to give pt post surgical relief.
--- NOTE | 2024-03-18 13:40 | ANES.PREANE2 ---
Pre-Anesthetic Assessment Height/Weight: Height 1.88 m Weight 92.079 kg Temp Pulse Resp BP Pulse Ox O2 Del Method 97.7 F 66 16 142/59 96 Room Air 03/18/24 10:13 03/18/24 10:13 03/18/24 10:13 03/18/24 10:13 03/18/24 10:13 03/18/24 10:13 Preop Diagnosis: Right shoulder rotator cuff arthropathy Operation Date: 03/18/24 14:40 Proposed Procedures p Total Reverse Shoulder Arthroplasty(Right) - Durga Leone DO Familial anesthetic complications: None Was Beta Sabra taken within 24 hours: N/A Was Clonidine taken within 24 hours: N/A Last intake: Intake Last Liquid Date 03/17/24 Last Liquid Time 21: Last Solid Date 03/17/24 Last Solid Time 21:30 Social No alcohol and No tobacco Exam alert, oriented x 3, clear to auscultation bilaterally and regular rate & rhythm Airway Mallampati: Class II Dentition: full Musc/skel B cell lymphoma Anesthetic Plan ASA status: 3 Anesthesia: General and Regional (specify below) Risk of > 500 ml blood loss (7ml/kg in children): No Medications/Allergies Home Medications Medication Instructions Recorded Confirmed Last Taken Type tamsulosin 0.4 mg capsule 0.4 mg PO QPM 07/01/19 03/18/24 03/16/24 History acetaminophen 500 mg tablet 500 mg PO Q6H PRN Pain 02/08/23 03/18/24 03/17/24 History (Tylenol Extra Strength) midodrine 2.5 mg tablet 2.5 mg PO TID 07/25/23 03/18/24 03/17/24 History Allergies Allergy/AdvReac Type Severity Reaction Status Date / Time Opioids - Morphine Analogues Allergy Severe ADR/ALGY-Hy Verified 03/13/24 18:47 potension meperidine [From Demerol] Allergy Mild ADR/ALGY-Hy Verified 03/13/24 18:47 potension Penicillins Allergy ADR-Dizzine Verified 03/13/24 18:47 ss Current Medications Generic Name Dose Route Start Last Admin Trade Name Freq PRN Reason Stop Dose Admin Sodium Chloride 1,000 mls @ 30 mls/hr 03/18/24 10:15 03/18/24 10:42 Sodium Chloride 0.9% IV 03/19/24 10:14 30 mls/hr .Q24H REJI Administration PFSH Anesthesia Medical History Bladder wall thickening Urinary retention Protein-energy malnutrition Diffuse large B-cell lymphoma of extranodal site History of fracture of clavicle Decubitus skin ulcer 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 Otoole S/P lymph node biopsy (11/17/21) Core needle biopsy of left supraclavicular lymph node Status post surgical removal of malignant neoplasm of skin S/P arthroscopic surgery of left knee Hx of repair of rotator cuff History of cataract surgery Bilateral cataract excisions Family History Father Cancer Brother Diabetes Denies family history of CAD (coronary artery disease) Clotting disorder Dementia Hyperlipidemia Psychiatric illness Chronic kidney disease (CKD) Suicide Anesthesia complication Bleeding disorder Family history of premature coronary artery disease Lung disease Hypertension Stroke Social History Smoking and tobacco/nicotine status: never used tobacco/nicotine Quit status (tobacco/nicotine): has quit using Year quit tobacco: 1994 Former quit date comment: smoked 20 years Second hand smoke exposure: Yes Alcohol intake: never Substance/Drug Use: never Adopted: No Caregiver/support person: No Lives independently: Yes Household members: spouse Housing: Other Details: Rehabbing at [facility] Marital status: Current occupational status: retired Current occupational exposures/hazards: No Do you think of yourself as: Straight/Heterosexual Current gender identity: Male Data Anesthesia 03/18/24 10:31 03/18/24 10:31 Short CBC 03/18/24 Range/Units 10:31 WBC 6.47 (3.29-11.43) 10^3/uL Hgb 11.50 (11.27-16.99) g/dL Hct 36.5 L (37-53) % MCV 96.6 (82-101) fl Plt Count 139 L (157-399) 10^3/cmm Neut % (Auto) 81.9 % Neut # (Auto) 5.30 (1.8-7.7) 10^3/uL BMP 03/18/24 10:31 Sodium 140 Potassium 4.4 Chloride 106 Carbon Dioxide 25 BUN 27 H Creatinine 1.0 Glucose 99 Calcium 8.8 Blood Bank 03/18/24 10:31 Blood Type A Positive Rho(D) Type Rh positive Antibody Screen Negative Cardiac Studies: Echocardiogram 04/27/22
--- NOTE | 2024-03-18 13:41 | ANES.PROC ---
Anesthesia Procedures Procedure/Date: 03/18/24 Nerve Block ^: Nerve Block 1: Main Anesthesia: general anesthesia Time Out Performed: Yes Consent: requested by attending/covering physician, from patient, from other, risks and benefits reviewed and patient agrees to proceed Nerve block location: interscalene (R) Anesthesia monitors applied: pulse oximetry, EKG, BP cuff and oxygen Nerve block position: semi sitting Anesthetic Used: ropivicaine 0.5% (20 ml) and with decadron (4 mg) Ultrasound used to: recognize landmarks, visualize and ID brachial plexus, in supraclavicular region and visualize and ID interscalene groove Nerve Stimulator Used?: No Interscalene/Femoral BLK: 2 stimuplex 22 g needle used for position and inplane approach, visualize local anesthetic spread and no vascular puncture identified Injection: neg aspiration of heme Patient Tolerated Procedure: well Complications: none
[2024-03-18] MEDS: ceFAZolin 2,000 MG in sodium chloride 0.9% (plus) 50 ML 100 MG IV ×2 (14:19→20:47)
[2024-03-18] MEDS: tranexamic acid 1,000 mg/10mL SDV 1000 MG IV (14:59)
[2024-03-18] MEDS: vancomycin 1,000 MG SDV 1000 MG XX (15:34)
--- NOTE | 2024-03-18 17:06 | W.PM.BPON ---
Date of Procedure: 03/18/2024 Surgeon: Durga Leone DO Guest Service Aide(s): Daryl Leone PA-C Procedure(s) performed: Right reverse total shoulder arthroplasty Right shoulder biceps tenodesis Right shoulder removal proximal humerus metal rotator cuff anchor Findings of the procedure(s): Patient was found to have severe right shoulder rotator cuff arthropathy with complete collapse of the glenohumeral joint with a superior endplate needed glenoid with prominent inferior osteophytes. Patient underwent a biceps tenodesis as well as a right reverse total shoulder arthroplasty without issues or complications given the deformity I did have to use a small augment to the superior and posterior aspect of the glenoid. Patient tolerated procedure without issues or complications taken to PACU stable condition will be admitted postoperatively. Patient will be in sling will be nonweightbearing and no active range of motion of shoulder for 6 weeks. Estimated blood loss: 75 mL Specimen(s) removed: Humerus and glenoid reamings removed not sent for pathology Post-operative diagnosis: Right shoulder rotator cuff arthropathy
--- NOTE | 2024-03-18 17:09 | PM.OP ---
Operative Report Date of procedure: March 18, 2024 Surgeon: Durga Leone DO Wildlife Control Agent: Daryl Leone PA-C: PA was necessary for assistance in this case with shoulder positioning to execute the procedure, assistance with instrumentation, as well as implantation, assist with wound closure and dressing application. Procedure: Preop Diagnosis?Right shoulder shoulder degenerative joint disease Post-op diagnosis:? Same Procedure done:? Right?reverse?total shoulder arthroplasty Right shoulder biceps tenodesis Right shoulder removal proximal humerus metal rotator cuff anchor Implants:? [employer]?reverse?total shoulder arthroplasty comprehensive system Size 16 mm micro humeral stem 36 mm glenosphere diameter standard offset Glenosphere mini baseplate Central screw?6.5 mm by 30 mm Fixed locking screws (25 mm, 20 mm, 15 mm) Standard mini humeral tray with +0 mm polyethylene thickness Surgeon:? Durga Leone DO Estimated blood loss:? 75 mL IV fluids:? 1000 mL Urine output:? 300 mL Complications:? None Findings:? See operative report narrative Condition: stable Disposition: floor Brief History:? Pt is a pleasant 83year-old male who is worked up in the outpatient setting for chronic Right shoulder arthrtitis with rotator cuff arthropathy.? Pt has failed conservative treatment and? was interested in further treatment options we talked about? continued nonoperative versus operative intervention. Given patient's chronic cuff arthropathy would recommend Right?reverse?total shoulder arthroplasty.? Pt has been medically optimized and cleared for surgery by the anesthesia department.? Through shared decision-making pt like to proceed with a Right?reverse?total shoulder arthroplasty.? All questions been answered at this time once again pt understands the risk benefits complication alternatives the treatment option understanding risk of surgery pt agrees to proceed.? All questions answered. Procedure:? Patient seen evaluated in the preoperative holding area.? Consent was reviewed and signed with patient once again detailed out the ins and outs of the procedure.? Correct extremity was marked.? Final questions answered.? Patient was seen evaluated by Anesthesia Department once cleared for surgery pt was taken back to the operative suite.? pt was placed in supine position all bony prominences well-padded patient was appropriate secured to the bed pt underwent anesthesia per the anesthesia department once appropriately anesthetized he was then subsequently set into a lazy beachchair position utilizing our standard OR table.? Once we confirmed appropriate positioning we then subsequently prepped and draped the Right upper extremity in standard orthopedic fashion.? Final timeout performed.? Patient received appropriate preoperative antibiotics. Standard deltopectoral approach was then made just lateral to the coracoid.? I utilized electrocautery to maintain exact hemostasis throughout my dissection.? I subsequently identified the cephalic vein dissected this out carefully and this was taken medially with Cobell retractor and I entered the deltopectoral interval.? Next I released the clavipectoral fascia and at this point time identified the bicep tendon.? This was then isolated and I opened up the bicipital groove within the interval taken this all the way to its insertion site.? I subsequently released the bicep tendon all this was subsequently maintained I then performed under appropriate tension of bicep tenodesis to the pectoralis muscle and fascia.? The proximal end of the tendon was then resected.? Of note patient had significant attenuation of subscapularis tendon as well as tearing of rotator cuff.? I then subsequently performed a subscapularis remanent peel off of the lesser tuberosity this was tagged with 0 Vicryl suture and utilized for manipulation throughout the case.? I then subsequently performed a complete release in standard fashion with care to stay directly onto bone and protecting axillary nerve throughout the case.? Once standard residual release was performed I then protected the entirety of the humeral head and subsequently began with my humeral stem prep. Canal finder was used just off the articular margin and canal centralizer was satisfactory.? I then subsequently broached up to appropriate depth and canal fit which was determined to be 16.? 16 broach was left in and subsequently brought in plan to guide of 30 degrees retroversion was then placed with my cutting guide pinned into appropriate position and making sure my rotation and version was appropriate once satisfactory and pinned in the place the intramedullary canal reamer was then subsequently removed and an oscillating saw was then used to perform my humeral head resection.? This was then subsequently removed. Embedded within the proximal humerus was patient's previous rotator cuff medical anchor. I then utilized a rongeur and remove this to its entirety. I then sequentially broached up to appropriate size which was a size 16 mm humeral stem with care to once again maintained my appropriate version.? Once I was satisfied with this I then placed the metal cap left the stem in place to maintain appropriate integrity of the humeral head while performing work on the glenoid.?? Next I then placed appropriate retraction posterior inferior posterior superior as well as anterior.? I had excellent visualization of the glenoid at this point time juhi my appropriate position.? I utilized electrocautery and remove the entirety of the labrum so I had full visualization of the glenoid.? I then utilized the [employer] comprehensive targeting guide within 10 degree tilt. I kept my tilt to roughly 5 degrees per my preoperative plan. Preoperative plan did show significant glenoid superior inclination and as a result we will planning for augmentation superiorly. Appearance of the glenoid was consistent with this with slight retroversion. central guidepin was then inserted and confirmed to be in appropriate position confirmed with preop CT plan. once satisfied with this placement I then introduced my reamer. At this point in time patient did have significant inferior osteophytes. I reamed to 50% of the inferior bone was captured and would accommodate for a small augments. Utilizing [employer]'s augment system I subsequently drilled our additional pin and our augmented screw baseplate to get gentle reamings off the superior and slightly posterior aspect of the glenoid where augment was going to be placed. This scuffed up the glenoid and would be accommodating for a baseplate with small augment. I then called for this implant. And then opened up our porous glenosphere mini baseplate with small augment and this was impacted in appropriate position and rotation. This had appropriate bony contact. Next I then subsequently drilled and measured my central screw and placed in appropriate length 30 mm central screw.? This had excellent fixation and purchase.? At this point time I are removed any small residual osteophytes inferiorly and at this point then I subsequently drilled measured and placed 3 locking screws circumferentially around the mini baseplate size screws were 25 mm, 20 mm, 15 mm. These were placed superiorly I subsequently drilled inferiorly but did not feel as though I had excellent purchase in the bone as this given his deformity of his glenoid was resting right on the inferior aspect of the bone as result this was left alone as a had good fixation with the central screw and subsequently drilled my anterior and posterior screws as well as my superior these all had excellent fixation and bony purchase. These all had excellent fixation and I satisfied with baseplate .? Next I then opened up our glenosphere 36 diameter set this to the appropriate offset B which is given 1.5 mm offset which is standard offset inferiorly this was then impacted and had excellent fixation.? Utilize a tonsil and hand to confirm excellent fixation of the glenosphere. ?This was then subsequently removed and then I subsequently placed the appropriate trial humeral tray which was trialed with a standard offset onto my trial 16 mm humeral stem this was subsequently reduced.? Shoulder had excellent range of motion and stability. He was determined this was the appropriate implant. this had satisfactory range of motion and excellent stability and appropriately tension.? This was determined to be my final implant.? I then subsequently dislocate the shoulder.? I then subsequently removed the trial implantations of the humerus.? Final implants were called and open for of a size 16 micro humeral stem as well as a +0 polyethylene and mini humeral tray.? This was opened and set up appropriately on the back table.? I then subsequently impacted the micro humeral stem size 16 and appropriate position which was exact as our trial implantation once again maintaining our appropriate version that was preset and marked and then next I subsequently dried the trunnion and impacted the appropriate humeral tray with +0 mm thickness poly.? This was then subsequently reduced and had excellent fixation range of motion and stability with appropriate tensioning.? No evidence of instability was noted.? I then subsequently opened Pulsavac and thoroughly irrigated the incision with 3 L of normal saline.? I then subsequently placed a gram of vancomycin powder for infection prophylaxis.? I then subsequently closed the subcutaneous layer with 0 and 2-0 STRATAFIX suture a running 3-0 strata fix was then performed of the skin edges and then reinforce the skin edges with perineo.? A ALEX dressing was then applied.? Sling applied. Patient was then awakened from anesthesia and taken to PACU in stable condition.? Patient tolerated procedure without any complications. Disposition: Patient taken to PACU in stable condition recovering well will be admitted to the floor postoperatively internal medicine will be on board for medical management.? Patient will be nonweightbearing to the Right shoulder.? Sling on in place.? Patient will receive appropriate postoperative pain medication DVT prophylaxis on the floor.? Will receive appropriate discharge structure as well as pain medication DVT prophylaxis.? We will work with PT/OT.? Plan will be for discharge home with home health care. Patient family understand agree with current plan. Questions answered.? Patient to follow-up with me in the office in 2 weeks.
--- NOTE | 2024-03-18 17:14 | XRR_ITS ---
PROCEDURE INFORMATION: Exam: XR Right Shoulder Exam date and time: 03/18/2024 5:22 PM Age: 83 years old Clinical indication: Device placement; Joint replacement hardware; Prior surgery; Surgery date: Post-operative (0-2 days); Surgery type: Post op RT shoulder; Additional info: S/P R reverse tsa TECHNIQUE: Imaging protocol: Radiologic exam of the right shoulder. Views: 2 or more views. COMPARISON: CT shoulder RT wo con* [id number] 02/28/2024 8:01 AM FINDINGS: Bones/joints: A right shoulder prosthesis is well seated and well aligned. Intra-articular air is noted. Soft tissues: Normal. XR/XR shoulder RT min 2V* [id number] IMPRESSION: Intact postoperative shoulder prosthesis
--- NOTE | 2024-03-18 17:22 | PM.PACU ---
PACU note Narrative: Patient is an 83-year-old male just underwent a right reverse total shoulder arthroplasty. Patient transferred to PACU in stable condition. Pain is well controlled. shoulder Dressing on , dry and in place. Patient's operative arm is in a shoulder immobilizer. Patient is awake and alert. Patient's fingers are warm with good perfusion. Normal cap refill under 2 seconds. Unable to assess further range of motion in arm due to sling. Unable to assess sensation and further motor due to residual spinal block. Exam: somnolent, arousable Disposition: admitted
--- NOTE | 2024-03-18 18:30 | ANE.PACU2 ---
Inpatient post-anesthesia follow up: Airway intact: Yes Vital signs: Temperature 97.9 F Pulse Rate 63 Respiratory Rate 16 Blood Pressure 113/67 Pulse Oximetry 94 Oxygen Delivery Me thod Room Air Oxygen Flow Rate 8 Fraction of Inspir ed Oxygen Hydration adequate: Yes Nausea and vomiting: No Pain level: 1 Mental status: Baseline
[2024-03-18] MEDS: acetaminophen 500 mg Tablet 1000 MG PO (20:05)
[2024-03-18] MEDS: calcium carb-vit d 600mg/400unit 1 Tablet 1 EACH PO (20:05)
[2024-03-18] MEDS: iron polysaccharide complex 150 mg Capsule PO (20:06)
[2024-03-18] MEDS: docusate sodium 100 mg Capsule PO (20:06)
[2024-03-18] MEDS: tranexamic acid 1,000 MG/100 ML PREMIX 600 MG IV (20:06)
[2024-03-18] MEDS: lactated ringers 1,000 ML 75 ML IV (20:06)
[2024-03-18] MEDS: chlorhexidine gluconate 0.12% Btl 473 mL 30 ML MUCOUS MEM (20:49)
--- NOTE | 2024-03-19 01:36 | P.CONIM_ITS ---
Providers/Reason For Consult 2 Consulting Physician/Specialty*: Orthopedic surgery Reason for Consult*: medical management postop Reverse TSA Attending Physician: Durga Leone DO Primary Care Provider: Robert Floyd MD History of Present Illness History of Present Illness Pleasant 83-year-old gentleman with history of lymphoma in remission, orthostatic hypotension, BPH, anemia, other medical problems, underwent total shoulder replacement last night. He reports he is doing well postoperatively apart from the shoulder immobilizer strap cutting into his skin in the left lower chest wall. Otherwise pain is under control. She denies chest pain or pressure. No trouble breathing. He intends to use the incentive spirometer. He is planning for likely return home later today after reassessment. Review of Systems 2 Const: Denies: fever(s), chills, body aches or malaise ENMT: Denies: throat pain Card: Denies: chest pain, edema, pre-syncope or dyspnea on exertion Resp: Denies: dyspnea, productive cough, change in phlegm color or hemoptysis GI: Denies: abdominal pain, nausea, vomiting, diarrhea, constipation, hematochezia or melena : Denies: flank pain, difficulty urinating, urinary frequency or hematuria Musc: Denies: back pain, joint swelling or joint redness Skin/Breast: Denies: rash or new lesions Medications/Allergies Home Medications Medication Instructions Recorded Confirmed Last Taken Type tamsulosin 0.4 mg capsule 0.4 mg PO QPM 07/01/19 03/18/24 03/16/24 History acetaminophen 500 mg tablet 500 mg PO Q6H PRN Pain 02/08/23 03/18/24 03/17/24 History (Tylenol Extra Strength) midodrine 2.5 mg tablet 2.5 mg PO TID 07/25/23 03/18/24 03/17/24 History Allergies Allergy/AdvReac Type Severity Reaction Status Date / Time Opioids - Morphine Analogues Allergy Severe ADR/ALGY-Hy Verified 03/13/24 18:47 potension meperidine [From Demerol] Allergy Mild ADR/ALGY-Hy Verified 03/13/24 18:47 potension Penicillins Allergy ADR-Dizzine Verified 03/13/24 18:47 ss Current Medications Generic Name Dose Route Start Last Admin Trade Name Freq PRN Reason Stop Dose Admin Acetaminophen 1,000 mg 03/18/24 18:35 03/18/24 20:05 Acetaminophen 500 Mg Tablet PO 1,000 mg Q8H REJI Administration Calcium Carbonate 1 each 03/18/24 18:35 03/18/24 20:05 Calcium Carb-Vit D 600mg/400unit 1 Tablet PO 1 each BID REJI Administration Chlorhexidine Gluconate 30 ml 03/18/24 21:00 03/18/24 20:49 Chlorhexidine Gluconate 0.12% Btl 473 Ml MUCOUS MEM 30 ml QID REJI Administration Docusate Sodium 100 mg 03/18/24 18:35 03/18/24 20:06 Docusate Sodium 100 Mg Capsule PO 100 mg BID REJI Administration Cefazolin Sodium 2,000 mg/ 50 mls @ 100 mls/hr 03/18/24 22:00 03/18/24 22:03 Sodium Chloride IV 03/19/24 14:29 Infused Q8H REJI Infusion Protocol Lactated Ringer's 1,000 mls @ 75 mls/hr 03/18/24 18:35 03/18/24 22:04 Lactated Ringers IV 75 mls/hr .[id number] REJI Infusion Polysaccharide Iron Complex 150 mg 03/18/24 18:35 03/18/24 20:06 Iron Polysaccharide Complex 150 Mg Capsule PO 150 mg BIDWM REJI Administration PFSH Acute 2 PFSH: Medical History Bladder wall thickening Urinary retention Protein-energy malnutrition Diffuse large B-cell lymphoma of extranodal site History of fracture of clavicle Decubitus skin ulcer 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 Otoole S/P lymph node biopsy (11/17/21) Core needle biopsy of left supraclavicular lymph node Status post surgical removal of malignant neoplasm of skin S/P arthroscopic surgery of left knee Hx of repair of rotator cuff History of cataract surgery Bilateral cataract excisions Family History Father Cancer Brother Diabetes Denies family history of CAD (coronary artery disease) Clotting disorder Dementia Hyperlipidemia Psychiatric illness Chronic kidney disease (CKD) Suicide Anesthesia complication Bleeding disorder Family history of premature coronary artery disease Lung disease Hypertension Stroke Social History Smoking and tobacco/nicotine status: never used tobacco/nicotine Quit status (tobacco/nicotine): has quit using Year quit tobacco: 1994 Former quit date comment: smoked 20 years Second hand smoke exposure: Yes Alcohol intake: never Substance/Drug Use: never Adopted: No Caregiver/support person: No Lives independently: Yes Household members: spouse Housing: Other Details: Rehabbing at [facility] Marital status: Current occupational status: retired Current occupational exposures/hazards: No Do you think of yourself as: Straight/Heterosexual Current gender identity: Male Vitals/I&O/Wt Last Vital Signs Temp 98.0 F 03/18/24 23:59 Pulse 74 03/18/24 23:59 Resp 19 H 03/18/24 23:59 BP 100/64 03/18/24 23:59 Pulse Ox 93 03/18/24 23:59 O2 Del Method Room Air 03/18/24 23:59 O2 Flow Rate 8 03/18/24 17:25 03/18/24 03/18/24 03/19/24 14:59 22:59 06:59 Intake Total 650 / 650 704.25 / 1354.25 Output Total 375 / 375 Balance 650 / 650 329.25 / 979.25 Weight last 48 hrs Weight 92.079 kg Weight 92.079 kg Physical Exam 2 Narrative: Accompanied by his . Const: COMMON NORMALS: patient oriented x3 and alert GENERAL APPEARANCE: c ooperative ORIENTATION/CONSCIOUSNESS: Yes awake HENMT: COMMON NORMALS: oropharynx normal Neck/C-Spine: COMMON NORMALS: no JVD Resp: COMMON NORMALS: normal respiratory effort and clear to auscultation bilaterally AUSCULTATION: clear to auscultation bilaterally Cardio: COMMON NORMALS: no JVD, regular rhythm, S1 normal heart sound present, S2 normal heart sound present and No murmurs present (Cardio) RHYTHM: regular rhythm HEART SOUNDS: S1 normal heart sound present and S2 normal heart sound present GI: COMMON NORMALS: Normal to inspection, nondistended, normoactive bowel sounds present, Soft to palpation and non-tender PALPATION: Yes Soft to palpation Extremity: COMMON NORMALS: no joint enlargement and no pedal edema N ARRATIVE EXTREMITY EXAM: Right shoulder immobilizer. Right shoulder postsurgical dressing with mini wound VAC in place. No bleeding or strikethrough. No surrounding erythema, swelling. Neuro: COMMON NORMALS: patient oriented x3 and moves all extremities S ENSORIUM/ORIENTATION: Yes alert Skin: COMMON NORMALS: no rashes or lesions noted GENERAL SKIN EXAM: no rashes or lesions noted Urinary Catheter Management: Robbins: Cath Placed During This Visit: yes Reason for Continuing Indwelling Catheter: Perioperative Use in Selected Surgeries Urinary Catheter Date of Insertion: 03/18/24 Urinary Catheter Time of Insertion: 15:40 Data 03/18/24 10:31 03/18/24 10:31 A&P Assessment and plan (1) Status post total shoulder arthroplasty: Underwent reverse total shoulder arthroplasty. Uncomplicated procedure, EBL 75 mL. Reviewed vitals, CBC, BMP, shoulder x-ray, discussed with orthopedic surgeon. Reviewed orthopedic note. Per discussion with patient he is doing well postoperatively. Continue recovery. Follow-up repeat blood counts. BMP. Pending reassessment later today and likely may be returning home. He denies any complaints. Encouraged him to use incentive spirometer. DC Robbins catheter prior to discharge. Pending PT, OT assessment. He is receiving gentle IV hydration, monitor for fluid overload, consider discontinuation in the morning. He has been resumed on oral diet. For pain acetaminophen, oxycodone for moderate to severe, IV Dilaudid for severe breakthrough. Caution with pain medications given soft blood pressure, history of hypotension. Plan History of diffuse large B cell lymphoma: So far has remained in remission after 5 cycles of chemotherapy BPH: Resume tamsulosin Orthostatic hypotension: Resume midodrine. Consult Attestations 2 Medical Necessity Statement: Continue hospitalization for postoperative management following right total shoulder arthroplasty pending reassessment, post discharge planning. and High MDM includes amount and/or complexity of data reviewed/ordered [ previous or external records, resulted lab(s)/test(s), ordered lab(s)/test(s) and other healthcare professional discussion] and described risk of complication, morbidity or mortality of management as documented Diagnoses Status post total shoulder arthroplasty Z96.619
[2024-03-19] MEDS: tamsulosin 0.4 mg Capsule PO (02:18)
[2024-03-19] MEDS: acetaminophen 500 mg Tablet 1000 MG PO (02:18)
[2024-03-19 04:00] VITALS: BP 113/67; PULSE 63; RESP 16; TEMP 36.6; O2SAT 94
[2024-03-19 04:30] LABS: Hematocrit 30.5 % (37-53); Lymphocytes # 0.3 10^3/uL (0.8-4.8); Lymphocytes % 4.3 %; Mean Corpuscular HGB Conc 31.1 g/dL (30-55); Mean Corpuscular Hemoglobin 30.4 pg (27-33); Mean Corpuscular Volume 97.4 fl (82-101); Mean Platelet Volume 10.1 fL (7.4-10.4); Monocytes # 0.5 10^3/uL (0.2-0.9); Monocytes % 6.5 %; Neutrophils % 88.7 %; Nucleated Red Blood Cells % 0 %; Platelet Count 130 10^3/cmm (157-399); Red Blood Count 3.13 10^6/uL (3.85-5.65); Red Cell Distribution Width 13.8 % (12.1-15.1); White Blood Count 7.44 10^3/uL (3.29-11.43)
[2024-03-19 04:50] LABS: Anion Gap 13.2 (5-19); Blood Urea Nitrogen 29 mg/dL (8-23); Calcium 8.2 mg/dL (8.5-10.5); Carbon Dioxide 25 mmol/L (22-29); Chloride 103 mmol/L (98-107); Creatinine Clr Calc Pharmacy 69.3999; Glucose 148 mg/dL (65-115); Osmolality Calculated 293 mOsm/kg (285-295); Potassium 4.2 mmol/L (3.5-5.1); Sodium 137 mmol/L (136-145)
[2024-03-19] MEDS: ceFAZolin 2,000 MG in sodium chloride 0.9% (plus) 50 ML 100 MG IV (05:12)
--- NOTE | 2024-03-19 07:14 | PM.DCS ---
Discharge Providers Date of Admission: 03/18/24 18:00 Date of Discharge: March 19, 2024 Attending Provider at Admission: Durga Leone DO Attending Provider at Discharge: Durga Leone DO Consults: Dr. Talamantes hospitalist Primary Care Provider: Robert Floyd MD Diagnoses at Discharge Discharge Diagnosis (1) Status post total shoulder arthroplasty: Status: Acute Reason for Visit Reason for Visit: M12.811 Brief History: Status post right reverse total shoulder arthroplasty Hospital Course Hospital Course Patient was brought to the preoperative area with plan for right reverse total shoulder arthroplasty seen evaluated by anesthesia once cleared for surgery taken back to the operative suite patient underwent anesthesia per anesthesia department pt underwent a right reverse total shoulder arthroplasty without complications. Pt was subsequently taken to PACU in stable condition recovering well in PACU and was admitted to the floor postoperatively. Pt received appropriate postoperative pain medication DVT prophylaxis, perioperative antibiotics. Pt was instructed nonweightbearing to right upper extremity, no active range of motion of the right shoulder, maintain sling, work with PT/OT. Pt progressed well postoperatively labs were monitored daily dressing was changed as needed maintain avel dressing with good seal throughout the hospitalization. Internal medicine was on board to assist with medical management. Patient subsequently on postoperative day 1 was determined that patient was stable for discharge from an orthopedic standpoint and medical standpoint. Patient was subsequently discharged home. Given appropriate discharge instructions as well as pain medication DVT prophylaxis. Follow-up in the orthopedic office in 2 weeks. Physical Exam Narrative: Examination of the right shoulder demonstrates dressings on in place avel dressing has good seal no significant signs of saturation. Normal postoperative swelling and bruising appreciated. No active range of motion tested patient currently in a sling he does have distal pulses are palpable able to wiggle the fingers he does have sensation intact to the axillary nerve as well as can fire the real deltoid consistent with axillary motor intact. Urinary Catheter Management: Robbins: Cath Placed During This Visit: yes Reason for Continuing Indwelling Catheter: Perioperative Use in Selected Surgeries Urinary Catheter Date of Insertion: 03/18/24 Urinary Catheter Time of Insertion: 15:40 Discharge Data Studies Completed and Pending Completed Studies During Hospitalization Category Date Time Status XR shoulder RT min 2V* [id number] Routine Exams 03/18/24 17:14 Completed Pending at discharge Category Date Time Status Basic Metabolic Panel AM LABS Lab 03/20/24 04:00 Ordered Basic Metabolic Panel AM LABS Lab 03/21/24 04:00 Ordered Complete Blood Count w/Auto AM LABS Lab 03/20/24 04:00 Ordered Complete Blood Count w/Auto AM LABS Lab 03/21/24 04:00 Ordered Radiology Impressions Shoulder X-Ray 03/18/24 17:14 IMPRESSION: Intact postoperative shoulder prosthesis Laboratory Results WBC 7.44 10^3/uL (3.29-11.43) 03/19/24 04:00 RBC 3.13 10^6/uL (3.85-5.65) L 03/19/24 04:00 Hgb 9.50 g/dL (11.27-16.99) L 03/19/24 04:00 Hct 30.5 % (37-53) L 03/19/24 04:00 MCV 97.4 fl (82-101) 03/19/24 04:00 MCH 30.4 pg (27-33) 03/19/24 04:00 MCHC 31.1 g/dL (30-55) 03/19/24 04:00 RDW 13.8 % (12.1-15.1) 03/19/24 04:00 Plt Count 130 10^3/cmm (157-399) L 03/19/24 04:00 MPV 10.1 fL (7.4-10.4) 03/19/24 04:00 Neut % (Auto) 88.7 % 03/19/24 04:00 Lymph % (Auto) 4.3 % 03/19/24 04:00 [place] % (Auto) 6.5 % 03/19/24 04:00 Eos % (Auto) 0.0 % 03/19/24 04:00 Baso % (Auto) 0.0 % 03/19/24 04:00 Neut # (Auto) 6.60 10^3/uL (1.8-7.7) 03/19/24 04:00 Lymph # (Auto) 0.3 10^3/uL (0.8-4.8) L 03/19/24 04:00 [place] # (Auto) 0.5 10^3/uL (0.2-0.9) 03/19/24 04:00 Eos # (Auto) 0.0 10^3/uL (0.0-0.8) 03/19/24 04:00 Baso # (Auto) 0.0 10^3/uL (0.0-0.1) 03/19/24 04:00 Nucleated RBC % (auto) 0 % 03/19/24 04:00 Nucleated RBCs # 0.0 /100WBC 03/19/24 04:00 Sodium 137 mmol/L (136-145) 03/19/24 04:00 Potassium 4.2 mmol/L (3.5-5.1) 03/19/24 04:00 Chloride 103 mmol/L (98-107) 03/19/24 04:00 Carbon Dioxide 25 mmol/L (22-29) 03/19/24 04:00 Anion Gap 13.2 (5-19) 03/19/24 04:00 BUN 29 mg/dL (8-23) H 03/19/24 04:00 Creatinine 1.0 mg/dL (0.7-1.2) 03/19/24 04:00 GFR Calculation Not Reportable 03/19/24 04:00 Glucose 148 mg/dL (65-115) H 03/19/24 04:00 Calculated Osmolality 293 mOsm/kg (285-295) 03/19/24 04:00 Calcium 8.2 mg/dL (8.5-10.5) L 03/19/24 04:00 Blood Type A Positive 03/18/24 10:31 Rho(D) Type Rh positive 03/18/24 10:31 Antibody Screen Negative 03/18/24 10:31 Vitals Last Vital Signs Temp 97.9 F 03/19/24 04:00 Pulse 63 03/19/24 04:00 Resp 16 03/19/24 04:00 BP 113/67 03/19/24 04:00 Pulse Ox 94 03/19/24 04:00 O2 Del Method Room Air 03/19/24 04:00 O2 Flow Rate 8 03/18/24 17:25 Discharge Plan Discharge Patient Disposition: Home Condition: Stable Prescriptions: New aspirin 325 mg tablet 325 mg PO DAILY 30 Days Qty: 30 0RF Calcium 600 + D(3) 600 mg-10 mcg (400 unit) tablet 1 tab PO DAILY 30 Days Qty: 30 0RF Continued tamsulosin 0.4 mg capsule 0.4 mg PO QPM acetaminophen [Tylenol Extra Strength] 500 mg tablet 500 mg PO Q6H PRN (Reason: Pain) midodrine 2.5 mg tablet 2.5 mg PO TID No Action docusate sodium [Colace] 100 mg capsule 100 mg PO DAILY B complex-vitamin C-folic acid 100-1 mg tablet 1 tab PO DAILY pantoprazole [address] for susp in packet 40 mg PO DAILY Discharge Orders: Discharge Order (Routine); Ordered 03/19/24 Ordered By: Durga Leone Referrals: Robert Floyd MD [Primary Care Provider] - (Please call to schedule a follow up appointment) Durga Leone DO [Physician] - 04/02/24 8:00 am Discharge Diet: Regular Discharge Activity: Limit activity as instructed Patient Instructions: Aspirin (By mouth), Tramadol (By mouth), Ondansetron (By mouth), Acute Wound Care (DC), Shoulder Arthroplasty (GEN), Joint Replacement Stoplight, Opioid Safety, Post Anesthesia Care Activity Restrictions/Additional Instructions: Orthopedic discharge instructions: Keep dressing on, dry and intact. Keep arm in shoulder sling for the next 6 weeks. To prevent frozen shoulder you can take arm out of sling and let it hang down and do pendulum swings. Ok to bend elbow up and down Strict No active Range of motion of shoulder No weight-bear to the operative extremity. Ice needed for pain and swelling Take pain medication as prescribed-contact the office if these pain medications do not work or having issues tolerating them Supplement with MiraLAX or stool softener if having constipation Take antinausea medication as needed Take aspirin as prescribed for blood clot prevention Supplement with calcium vitamin D for bone health and healing No baths or soaks Follow-up in the orthopedic office in 2 weeks Contact the office for any questions or concerns Discharge Attestations Time Spent in Discharge Care*: less than 30 min Status at Discharge: Cognitive status at discharge: cognitively intact, Behavioral status at discharge: cooperative, Quality Metrics Clinical Quality Measures [ No reported AMI, CVA or VTE this stay] Coding Level of Care Code Acute Code for Chg Fwd Diagnoses Status post total shoulder arthroplasty Z96.619 Time Spent (min) 25
[2024-03-19] MEDS: multivitamin therapeutic Tablet 1 TAB PO (07:26)
[2024-03-19] MEDS: iron polysaccharide complex 150 mg Capsule PO (07:26)
[2024-03-19] MEDS: calcium carb-vit d 600mg/400unit 1 Tablet 1 EACH PO (07:26)
[2024-03-19] MEDS: midodrine 5 mg TABLET 2.5 MG PO (07:26)
[2024-03-19] MEDS: docusate sodium 100 mg Capsule PO (07:26)
[2024-03-19] MEDS: aspirin 325 mg EC Tablet PO (07:26)
[2024-03-19] MEDS: chlorhexidine gluconate 0.12% Btl 473 mL 30 ML MUCOUS MEM (07:27)
[2024-03-19 08:00] VITALS: BP 110/68; PULSE 76; RESP 18; TEMP 36.6; O2SAT 96
--- NOTE | 2024-03-19 09:35 | PC.CHAP ---
Pastoral Care Encounter/Spiritual Assessment Type of Contact [] Declined stunner animal visit [] Patient/Family/Request visit [] Outpatient visit [] Follow-up visit [] Physician referral [] Code/Alert [x] Routine visit [] Staff referral [] Actively dying [] Patient sleeping [x] Family support [] [] Out of room [] Palliative care [] [] Receiving care in room [] Pre-surgical visit [] Trauma [] Long length of stay [] ICU visit [] Other: Relational/Emotional Strength [x] Patient feels connected with others/family/visitors/staff [] Distress [] Loneliness/isolation [] Abandonment Spirituality of Patient [x] Person of Shanice [] Attends Yarsanism of their [place]ice [x] Believes in Prayer [] Reads Bible or Zoroastrian materials [] There are Spiritual issues to be addressed Sports Leadership Instructor Interventions [x] Prayer [] Active listening [] Non-anxious presence [x] Spiritual/emotional support [] Crisis/trauma care [] Spiritual counseling [] Bereavement support [] Provided bereavement packet [] Provided Bible/devotional materials [] Provided toy/stuffed animal, coloring book to patient or family member [] Provided Communion [] Anointing/[place] [] Salvation [x] Completed spiritual assessment [] Other: Impact on Illness or Injury [] Angry [] Fearful [] Anxious [] Often cries [] Exhaustion [] Unable to work [] Unable to attend sabianism [] Unable to walk/stand [] Unable to read [] Unable to drive [] Unable to eat/drink [] Unable to sleep [] Unable to be with family [] Patient intubated [] Other: Summary Time spent with patient 5 min
--- NOTE | 2024-03-19 11:11 | P.PN_ITS ---
Subjective 2 Subjective: Patient was seen this morning, sitting up in a chair, alert oriented x 3, following all commands, right arm in a sling, he denies any significant complaints, he is being discharged on aspirin 325 mg daily for DVT prophylaxis, he has a history of a duodenal abrasion, discussed his risk of GI bleeds, will discharge on Protonix 40 twice daily, will have his primary care provider or oncology recheck his CBC in 1 week, patient was advised if he were to have any bloody or black stools, or feeling lightheaded or dizzy please immediately come back to emergency room Vitals/I&O/Wt Last Vital Signs Temp 97.8 F 03/19/24 08:00 Pulse 76 03/19/24 08:00 Resp 18 03/19/24 08:00 BP 110/68 03/19/24 08:00 Pulse Ox 96 03/19/24 08:00 O2 Del Method Room Air 03/19/24 04:00 O2 Flow Rate 8 03/18/24 17:25 03/18/24 03/19/24 03/19/24 22:59 06:59 14:59 Intake Total 704.25 / 1354.25 50 / 1404.25 120 / 120 Output Total 375 / 375 100 / 475 Balance 329.25 / 979.25 -50 / 929.25 120 / 120 Weight last 48 hrs Weight 97.296 kg Weight 92.079 kg Weight 92.079 kg Physical Exam 2 Const: COMMON NORMALS: no acute distress and patient oriented x3 Resp: COMMON NORMALS: normal respiratory effort, No retractions, No use of accessory muscles and clear to auscultation bilaterally AUSCULTATION: clear to auscultation bilaterally Cardio: COMMON NORMALS: regular rate, regular rhythm, S1 normal heart sound present and S2 normal heart sound present RATE: regular rate RHYTHM: r egular rhythm HEART SOUNDS: S1 normal heart sound present and S2 normal heart sound present GI: COMMON NORMALS: Normal to inspection, nondistended, normoactive bowel sounds present and non-tender Extremity: COMMON NORMALS: no pedal edema Neuro: COMMON NORMALS: patient oriented x3 Psych: COMMON NORMALS: mental status grossly normal Urinary Catheter Management: Robbins: Cath Placed During This Visit: yes Reason for Continuing Indwelling Catheter: Perioperative Use in Selected Surgeries Urinary Catheter Date of Insertion: 03/18/24 Urinary Catheter Time of Insertion: 15:40 Data 03/19/24 04:00 03/19/24 04:00 A&P Assessment and plan (1) Status post total shoulder arthroplasty: As above Plan History of diffuse large B cell lymphoma: So far has remained in remission after 5 cycles of chemotherapy BPH: Resume tamsulosin Orthostatic hypotension: Resume midodrine. Attestations 2 Medical Necessity Statement*: Patient will be discharged today Diagnoses Status post total shoulder arthroplasty Z96.619
[2024-03-19 12:16] VITALS: BP 110/68; PULSE 76; RESP 18; TEMP 36.6; O2SAT 96
== END 2024-03-19 12:17 | disposition home or self-care (01) ==
LOC: MEDSURG 18:00
PROVIDERS: Physician Assistant; Admitting Provider Student in an Organized Health Care Education/Training Program; PCP Family Medicine; Visit Provider Student in an Organized Health Care Education/Training Program
PROC: (CPT 23472; principal; 2024-03-18 14:40)
PROC: (CPT 23430; 2024-03-18 14:40)
DX: M19.011 Primary osteoarthritis, right shoulder (principal); N40.0 Benign prostatic hyperplasia without lower urinary tract symptoms; Z87.891 Personal history of nicotine dependence
CPT/HCPCS: 20680; 23472; 36415; 51702; 73030; 80048; 85025; 86850; 86900; 97167; 97530; C1713; C1776 ×2; G0378; J0131; J0330; J0690; J1100; J1885; J2405; J2704; J2795; J3010; J3370; J3490; J7030; J7120

== ENCOUNTER → 2024-04-02 08:20 | Outpatient (BNVA) | payer OTHER, SELFPAY | PROVIDERS: PCP Family Medicine; Visit Provider Physician Assistant | DX: Z96.611 Presence of right artificial shoulder joint (principal) | CPT/HCPCS: 73030; 99024 ==

== ENCOUNTER 2024-04-19 07:42 | Oncology outpatient (recurring) (ONCR) | payer OTHER, SELFPAY ==
[2024-04-19] MEDS: iohexol 350 mg/mL 500 mL Btl (per mL) IV (07:55)
[2024-04-19] MEDS: iohexol 350 mg/mL 500 mL Btl (per mL) PO (07:55)
--- NOTE | 2024-04-19 08:15 | CTR_ITS ---
PROCEDURE INFORMATION: Exam: CT Chest With Contrast; Diagnostic Exam date and time: 04/19/2024 8:25 AM Age: 84 years old Clinical indication: Lymphoma; prior port placement. TECHNIQUE: Imaging protocol: Diagnostic computed tomography of the chest with contrast. Radiation optimization: All CT scans at this facility use at least one of these dose optimization techniques: automated exposure control; mA and/or kV adjustment per patient size (includes targeted exams where dose is matched to clinical indication); or iterative reconstruction. Contrast material: OMNI 350; Contrast volume: 100 ml; Contrast route: INTRAVENOUS (IV); COMPARISON: PT PET skull to thigh [id number] 10/31/2023 3:30 PM RADIATION DOSE METRICS: Total DLP (mGy-cm): 1313.86 FINDINGS: Lungs: Unremarkable. No consolidation. No masses. Pleural spaces: Unremarkable. No pneumothorax. No pleural effusion. Heart: Unremarkable. No cardiomegaly. No pericardial effusion. Coronary arteries: Multivessel atherosclerotic disease which involves the coronary arteries. Lymph nodes: Unremarkable. No enlarged lymph nodes. Vasculature: Unremarkable. No aortic aneurysm. Bones/joints: There are severe degenerative changes in the visualized spine. Multiple sclerotic and lytic foci in the osseous structures appears similar to the prior study. Right shoulder replacement. Soft tissues: Unremarkable. PROCEDURE INFORMATION: Exam: CT Abdomen And Pelvis With Contrast Exam date and time: 04/19/2024 8:25 AM Age: 84 years old Clinical indication: Lymphoma; prior port placement. TECHNIQUE: Imaging protocol: Computed tomography of the abdomen and pelvis with contrast. Radiation optimization: All CT scans at this facility use at least one of these dose optimization techniques: automated exposure control; mA and/or kV adjustment per patient size (includes targeted exams where dose is matched to clinical indication); or iterative reconstruction. Contrast material: OMNI 350; Contrast volume: 100 ml; Contrast route: INTRAVENOUS (IV); COMPARISON: PT PET skull to thigh [id number] 10/31/2023 3:30 PM RADIATION DOSE METRICS: Total DLP (mGy-cm): 1313.86 FINDINGS: Liver: Normal. No mass. Gallbladder and biliary ducts: Cholelithiasis. Pancreas: Normal. No ductal dilation. Spleen: Normal. No splenomegaly. Adrenal glands: Normal. No mass. Kidneys and ureters: Stable right renal cyst measures 2.3 cm in the transverse dimension. There is a subcentimeter cystic lesion at the lateral aspect of the right kidney superior pole stable from the prior study. This is too small to further characterize. Stomach and bowel: Colonic constipation is present. Appendix: A normal appendix is identified. Intraperitoneal space: Unremarkable. No free air. No significant fluid collection. Vasculature: Multivessel atherosclerotic disease. Lymph nodes: Unremarkable. No enlarged lymph nodes. Urinary bladder: Unremarkable as visualized. Reproductive: Prostate gland is heterogeneous, enlarged, and indents the base of the bladder similar to the prior study. Bones/joints: There are severe degenerative changes in the visualized spine. Multiple sclerotic and lytic foci in the osseous structures appears similar to the prior study, most prominently involving the right iliac bone. There are severe degenerative changes in the visualized spine. Soft tissues: Unremarkable. CT/CT chest abdpel w/*[id number] IMPRESSION: Multiple sclerotic and lytic foci in the visualized osseous structures are similar to the prior study. No new lesions are seen. IMPRESSION: 1. Multiple sclerotic and lytic foci in the osseous structures appears similar to the prior study, most prominently involving the right iliac bone. No new lesions. 2. Cholelithiasis. 3. Colonic constipation is present. 4. Prostate gland is heterogeneous, enlarged, and indents the base of the bladder.
== END 2024-04-25 23:59 | disposition home or self-care (01) ==
LOC: RAD 07:42 → ONCMED 04-22 10:34
PROVIDERS: PCP Family Medicine; Visit Provider Internal Medicine Medical Oncology
DX: C83.39 Diffuse large B-cell lymphoma, extranodal and solid organ sites (principal); D50.0 Iron deficiency anemia secondary to blood loss (chronic); R78.81 Bacteremia; C79.51 Secondary malignant neoplasm of bone; D70.1 Agranulocytosis secondary to cancer chemotherapy; T45.1X5A Adverse effect of antineoplastic and immunosuppressive drugs, initial encounter; B95.7 Other staphylococcus as the cause of diseases classified elsewhere; Z79.2 Long term (current) use of antibiotics; Z79.52 Long term (current) use of systemic steroids; Z79.899 Other long term (current) drug therapy; Z95.828 Presence of other vascular implants and grafts; G60.9 Hereditary and idiopathic neuropathy, unspecified; M20.21 Hallux rigidus, right foot; M20.22 Hallux rigidus, left foot; L60.1 Onycholysis; L60.8 Other nail disorders; D80.1 Nonfamilial hypogammaglobulinemia; D64.9 Anemia, unspecified; Z87.891 Personal history of nicotine dependence
CPT/HCPCS: 71260; 74177

== ENCOUNTER → 2024-05-02 08:59 | Outpatient (BNVA) | payer OTHER, SELFPAY | PROVIDERS: PCP Family Medicine; Visit Provider Physician Assistant | DX: Z96.619 Presence of unspecified artificial shoulder joint (principal) | CPT/HCPCS: 73030; 99024 ==

== ENCOUNTER 2024-05-07 08:14 | Outpatient (RCR) | payer OTHER, SELFPAY | END 2024-05-25 23:59 | disposition home or self-care (01) | LOC: SPT 08:14 | PROVIDERS: Visit Provider Physician Assistant | DX: Z47.1 Aftercare following joint replacement surgery (principal); Z96.611 Presence of right artificial shoulder joint | CPT/HCPCS: 97110; 97161 ==

== ENCOUNTER 2024-05-14 13:26 | Oncology outpatient (recurring) (ONCR) | payer OTHER, SELFPAY ==
[2024-05-14 13:41] LABS: Basophils % 0.1 %; Eosinophils # 0.2 10^3/uL (0.0-0.8); Eosinophils % 2.2 %; Hematocrit 34.5 % (37-53); Lymphocytes # 0.6 10^3/uL (0.8-4.8); Lymphocytes % 9.6 %; Mean Corpuscular HGB Conc 31.3 g/dL (30-55); Mean Corpuscular Hemoglobin 29.7 pg (27-33); Mean Corpuscular Volume 94.8 fl (82-101); Mean Platelet Volume 9.6 fL (7.4-10.4); Monocytes # 0.6 10^3/uL (0.2-0.9); Monocytes % 8.8 %; Neutrophils # 5.26 10^3/uL (1.8-7.7); Neutrophils % 78.9 %; Nucleated Red Blood Cells % 0 %; Platelet Count 166 10^3/cmm (157-399); Red Blood Count 3.64 10^6/uL (3.85-5.65); Red Cell Distribution Width 14.6 % (12.1-15.1); White Blood Count 6.68 10^3/uL (3.29-11.43)
[2024-05-14 13:59] LABS: Alanine Aminotransferase 10 U/L (0-41); Albumin Level 3.8 g/dL (3.5-5.2); Alkaline Phosphatase 112 U/L (40-130); Anion Gap 14.2 (5-19); Aspartate Amino Transferase 13 U/L (0-40); Blood Urea Nitrogen 24 mg/dL (8-23); Carbon Dioxide 26 mmol/L (22-29); Chloride 102 mmol/L (98-107); Creatinine Clr Calc Pharmacy 69.2088; Globulin 2.5 g/dL (1.3-4.6); Glucose 106 mg/dL (65-115); Lactate Dehydrogenase 162 U/L (135-225); Osmolality Calculated 290 mOsm/kg (285-295); Potassium 4.2 mmol/L (3.5-5.1); Sodium 138 mmol/L (136-145); Total Bilirubin 0.4 mg/dL (0.15-1.2); Total Protein 6.3 g/dL (6.6-8.7)
== END 2024-05-25 23:59 | disposition home or self-care (01) ==
PROVIDERS: Visit Provider Internal Medicine Medical Oncology
DX: D50.0 Iron deficiency anemia secondary to blood loss (chronic); C79.51 Secondary malignant neoplasm of bone; D70.1 Agranulocytosis secondary to cancer chemotherapy; Z79.2 Long term (current) use of antibiotics; Z79.52 Long term (current) use of systemic steroids; Z79.899 Other long term (current) drug therapy; Z95.828 Presence of other vascular implants and grafts; G60.9 Hereditary and idiopathic neuropathy, unspecified; D80.1 Nonfamilial hypogammaglobulinemia; D64.9 Anemia, unspecified; Z87.891 Personal history of nicotine dependence; C83.390 Primary central nervous system lymphoma
CPT/HCPCS: 36415; 80053; 83615; 85025; 99214

== ENCOUNTER 2024-05-26 06:00 | Outpatient (RCR) | payer OTHER, SELFPAY | END 2024-06-25 23:59 | disposition home or self-care (01) | LOC: SPT 06:00 | PROVIDERS: Visit Provider Physician Assistant | DX: Z96.611 Presence of right artificial shoulder joint (principal) | CPT/HCPCS: 97110 ==

== ENCOUNTER 2024-06-01 14:40 | Emergency (ER) | payer OTHER, SELFPAY ==
[2024-06-01] VITALS (8 sets, daily range): BP systolic 102–127; BP diastolic 41–83; PULSE 77–95; RESP 18–20; TEMP 36.7; O2SAT 92–98
--- NOTE | 2024-06-01 15:09 | W.ED.BACK ---
Documented by User: Hernesto Ly DO 06/02/24 07:02 HPI - Back Pain/Injury General: Chief Complaint: Back Pain/Injury Stated Complaint: BACK PAIN Time Seen by Provider: 06/01/24 15:01 History of Present Illness: 84-year-old male patient presents emergency room with complaints of low back pain. 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 Today due to peripheral neuropathy from his treatments for lymphoma patient had a ground-level mechanical fall fell backwards and landed on a ladder about. This hit his low back he has severe pain particularly in the right lower side. He did not strike his head did not lose consciousness he is not on any anticoagulation Associated symptoms: Deny abdominal pain, chills, dysuria, fever(s) or urinary urgency Related Data Home Medications Medication Instructions Recorded Confirmed tamsulosin 0.4 mg capsule 0.4 mg PO QPM 07/01/19 06/01/24 acetaminophen 500 mg tablet 500 mg PO Q6H PRN Pain 02/08/23 06/01/24 (Tylenol Extra Strength) midodrine 2.5 mg tablet 2.5 mg PO TID 07/25/23 06/01/24 pantoprazole 40 mg granules 40 mg PO DAILY 04/02/24 06/01/24 delayed-release for susp in packet vitamin B complex-vitamin C 100 1 tab PO DAILY 04/02/24 06/01/24 mg-folic acid 1 mg tablet Previous Rx's Medication Instructions Recorded hydrocodone 5 mg-acetaminophen 325 1 tab PO Q6H PRN pain #15 tabs 06/01/24 mg tablet Allergies Allergy/AdvReac Type Severity Reaction Status Date / Time Opioids - Morphine Analogues Allergy Severe ADR/ALGY-Hy Verified 05/14/24 13:54 potension meperidine [From Demerol] Allergy Mild ADR/ALGY-Hy Verified 05/14/24 13:54 potension Penicillins Allergy ADR-Dizzine Verified 05/14/24 13:54 ss Review of Systems Const: Denies: fever(s) or chills Card: Denies: chest pain Resp: Denies: dyspnea GI: Denies: abdominal pain : Denies: dysuria, urinary frequency or urinary urgency Musc: Reports: back pain; Denies: neck pain Skin/Breast: Denies: rash PFSH ED PFSH: Medical History Bladder wall thickening Urinary retention Protein-energy malnutrition Diffuse large B-cell lymphoma of extranodal site History of fracture of clavicle Decubitus skin ulcer 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 Otoole S/P lymph node biopsy (11/17/21) Core needle biopsy of left supraclavicular lymph node Status post surgical removal of malignant neoplasm of skin S/P arthroscopic surgery of left knee Hx of repair of rotator cuff History of cataract surgery Bilateral cataract excisions Family History Father Cancer Brother Diabetes Denies family history of CAD (coronary artery disease) Clotting disorder Dementia Hyperlipidemia Psychiatric illness Chronic kidney disease (CKD) Suicide Anesthesia complication Bleeding disorder Family history of premature coronary artery disease Lung disease Hypertension Stroke Social History Smoking and tobacco/nicotine status: never used tobacco/nicotine Quit status (tobacco/nicotine): has quit using Year quit tobacco: 1994 Former quit date comment: smoked 20 years Second hand smoke exposure: Yes Alcohol intake: never Substance/Drug Use: never Adopted: No Caregiver/support person: No Lives independently: Yes Household members: spouse Housing: Other Details: Rehabbing at [facility] Marital status: Current occupational status: retired Current occupational exposures/hazards: No Do you think of yourself as: Straight/Heterosexual Current gender identity: Male Physical Exam Const: GENERAL APPEARANCE: cooperative ORIENTATION/CONSCIOUSNESS: Yes awake, Yes oriented to person, Yes oriented to place and Yes oriented to time HENMT: COMMON NORMALS: normocephalic, atraumatic and hearing grossly normal bilaterally HEAD & SCALP: normocephalic and atraumatic Resp: COMMON NORMALS: normal respiratory effort, No retractions, No use of accessory muscles and clear to auscultation bilaterally AUSCULTATION: clear to auscultation bilaterally Cardio: COMMON NORMALS: regular rate, regular rhythm and No murmurs present (Cardio) RATE: regular rate RHYTHM: regular rhythm GI: COMMON NORMALS: Soft to palpation and No hepatosplenomegaly present AUSCULTATION: Yes normoactive bowel sounds PALPATION: Yes Soft to palpation, No Tenderness to palpation present (GI), No Guarding due to palpation present (GI) and Yes No hepatosplenomegaly present Back/Pelvis: OTHER: No deformities no ecchymosis no rash no laceration present where patient hit tender reproducible pain across right paraspinal muscles extending to the iliac crest no radicular pain Extremity: COMMON NORMALS: normal to inspection, capillary refill normal, no clubbing, cyanosis or edema, no calf tenderness and no pedal edema Neuro: SENSORIUM/ORIENTATION: Yes oriented to person, Yes oriented to place and Yes oriented to time Skin: COMMON NORMALS: no rashes or lesions noted GENERAL SKIN EXAM: no rashes or lesions noted Course Vital Signs: Vital signs: Vital Signs Temperature 98.1 F 06/01/24 14:55 Pulse Rate 78 06/01/24 22:03 Respiratory Rate 18 06/01/24 22:03 Blood Pressure 102/41 06/01/24 22:03 Pulse Oximetry 98 06/01/24 22:03 Oxygen Delivery Me thod Room Air 06/01/24 17:04 MDM - Back Pain/Injury Medical Decision Making Patient unable to ambulate. Will likely need to be on hobs. Care signed out to Dr. Yun at change of shift. See final notes for diagnosis and disposition. Mr. Camejo was checked out at shift change, because he had gotten up and was evidently having a bit of trouble ambulating. Laboratory was drawn. In the meantime, he decided that he wanted to try walking again. He was able to ambulate with minimal assistance. He wanted to go home. He was advised to come back at any point should he become more weak, or have other problems. Close outpatient follow-up. Labs 06/01/24 15:47 06/01/24 15:47 Radiology Impressions Lumbar Spine CT 06/01/24 15:23 IMPRESSION: 1. No acute osseous findings. 2. Multilevel lumbar spondylosis. 3. Patchy areas of sclerosis with several lucent lesions in multiple vertebral bodies, compatible with prior metastases. If there is concern for new metastatic involvement, MRI lumbar spine without and with contrast or bone scan could be considered. Pelvis X-Ray 06/01/24 15:23 IMPRESSION: No definite acute osseous findings. If clinical concern persists, CT could be considered. Chest X-Ray 06/01/24 19:04 IMPRESSION: Patchy left basilar opacities could represent atelectasis versus infiltrate. Laboratory Results WBC 12.72 10^3/uL (3.29-11.43) H 06/01/24 15:47 RBC 3.95 10^6/uL (3.85-5.65) 06/01/24 15:47 Hgb 11.70 g/dL (11.27-16.99) 06/01/24 15:47 Hct 37.6 % (37-53) 06/01/24 15:47 MCV 95.2 fl (82-101) 06/01/24 15:47 MCH 29.6 pg (27-33) 06/01/24 15:47 MCHC 31.1 g/dL (30-55) 06/01/24 15:47 RDW 15.2 % (12.1-15.1) H 06/01/24 15:47 Plt Count 170 10^3/cmm (157-399) 06/01/24 15:47 MPV 10.6 fL (7.4-10.4) H 06/01/24 15:47 Neut % (Auto) 89.0 % 06/01/24 15:47 Lymph % (Auto) 2.8 % 06/01/24 15:47 [place] % (Auto) 6.8 % 06/01/24 15:47 Eos % (Auto) 0.5 % 06/01/24 15:47 Baso % (Auto) 0.2 % 06/01/24 15:47 Neut # (Auto) 11.32 10^3/uL (1.8-7.7) H 06/01/24 15:47 Lymph # (Auto) 0.4 10^3/uL (0.8-4.8) L 06/01/24 15:47 [place] # (Auto) 0.9 10^3/uL (0.2-0.9) 06/01/24 15:47 Eos # (Auto) 0.1 10^3/uL (0.0-0.8) 06/01/24 15:47 Baso # (Auto) 0.0 10^3/uL (0.0-0.1) 06/01/24 15:47 Nucleated RBC % (auto) 0 % 06/01/24 15:47 Nucleated RBCs # 0.0 /100WBC 06/01/24 15:47 PT 14.00 SECONDS (12.1-14.9) 06/01/24 15:47 INR 1.05 (0.8-1.2) 06/01/24 15:47 APTT 43.3 SECONDS (23.9-36.7) H 06/01/24 15:47 Sodium 139 mmol/L (136-145) 06/01/24 15:47 Potassium 4.8 mmol/L (3.5-5.1) 06/01/24 15:47 Chloride 102 mmol/L (98-107) 06/01/24 15:47 Carbon Dioxide 25 mmol/L (22-29) 06/01/24 15:47 Anion Gap 16.8 (5-19) 06/01/24 15:47 BUN 30 mg/dL (8-23) H 06/01/24 15:47 Creatinine 1.2 mg/dL (0.7-1.2) 06/01/24 15:47 GFR Calculation Not Reportable 06/01/24 15:47 Glucose 115 mg/dL (65-115) 06/01/24 15:47 Calculated Osmolality 295 mOsm/kg (285-295) 06/01/24 15:47 Calcium 9.4 mg/dL (8.5-10.5) 06/01/24 15:47 Total Bilirubin 0.4 mg/dL (0.15-1.2) 06/01/24 15:47 AST 29 U/L (0-40) 06/01/24 15:47 ALT 19 U/L (0-41) 06/01/24 15:47 Alkaline Phosphatase 128 U/L (40-130) 06/01/24 15:47 C-Reactive Protein 20.9 mg/L (0.0-4.9) H 06/01/24 15:47 Total Protein 5.8 g/dL (6.6-8.7) L 06/01/24 15:47 Albumin 4.0 g/dL (3.5-5.2) 06/01/24 15:47 Globulin 1.8 g/dL (1.3-4.6) 06/01/24 15:47 Discharge Plan Discharge Patient Disposition: Home Clinical Impression: Fall, Back pain Condition: Stable Prescriptions: New hydrocodone-acetaminophen 5-325 mg tablet 1 tab PO Q6H PRN (Reason: pain) Qty: 15 0RF No Action tamsulosin 0.4 mg capsule 0.4 mg PO QPM B complex-vitamin C-folic acid 100-1 mg tablet 1 tab PO DAILY pantoprazole [address] for susp in packet 40 mg PO DAILY acetaminophen [Tylenol Extra Strength] 500 mg tablet 500 mg PO Q6H PRN (Reason: Pain) midodrine 2.5 mg tablet 2.5 mg PO TID Discharge Orders: Discharge ED (Routine); Ordered 06/01/24 Ordered By: Milan Yun Discharge Diet: Usual diet Discharge Activity: Increase activity as tolerated Patient Instructions: Opioid Safety, Pain Management Activity Restrictions/Additional Instructions: Thank you for choosing [facility] for your healthcare needs today. It is very important that you follow up as instructed or that you return to the Emergency Department should you have concerns or if your condition changes or worsens in any way. You were seen in the emergency room after a fall. CT of your lumbar spine did not show any acute fractures. You will likely be very sore from soft tissue bruising for the next several days. You are given hydrocodone to use as needed. Follow-up with your primary care doctor if not improving or worsens. Coding Level of Care Code ED Manager [facility] Documented by User: Milan Yun, 06/01/24 22:31 HPI - Back Pain/Injury General: Chief Complaint: Back Pain/Injury Stated Complaint: BACK PAIN Time Seen by Provider: 06/01/24 15:01 History of Present Illness: 84-year-old male seen earlier by Dr. Ly after he fell back from a slightly elevated position, and landed over an extension ladder, striking his low back and pelvis. Related Data Home Medications Medication Instructions Recorded Confirmed tamsulosin 0.4 mg capsule 0.4 mg PO QPM 07/01/19 06/01/24 acetaminophen 500 mg tablet 500 mg PO Q6H PRN Pain 02/08/23 06/01/24 (Tylenol Extra Strength) midodrine 2.5 mg tablet 2.5 mg PO TID 07/25/23 06/01/24 pantoprazole 40 mg granules 40 mg PO DAILY 04/02/24 06/01/24 delayed-release for susp in packet vitamin B complex-vitamin C 100 1 tab PO DAILY 04/02/24 06/01/24 mg-folic acid 1 mg tablet Previous Rx's Medication Instructions Recorded hydrocodone 5 mg-acetaminophen 325 1 tab PO Q6H PRN pain #15 tabs 06/01/24 mg tablet Allergies Allergy/AdvReac Type Severity Reaction Status Date / Time Opioids - Morphine Analogues Allergy Severe ADR/ALGY-Hy Verified 05/14/24 13:54 potension meperidine [From Demerol] Allergy Mild ADR/ALGY-Hy Verified 05/14/24 13:54 potension Penicillins Allergy ADR-Dizzine Verified 05/14/24 13:54 ss PFSH ED PFSH: Medical History Bladder wall thickening Urinary retention Protein-energy malnutrition Diffuse large B-cell lymphoma of extranodal site History of fracture of clavicle Decubitus skin ulcer 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 Otoole S/P lymph node biopsy (11/17/21) Core needle biopsy of left supraclavicular lymph node Status post surgical removal of malignant neoplasm of skin S/P arthroscopic surgery of left knee Hx of repair of rotator cuff History of cataract surgery Bilateral cataract excisions Family History Father Cancer Brother Diabetes Denies family history of CAD (coronary artery disease) Clotting disorder Dementia Hyperlipidemia Psychiatric illness Chronic kidney disease (CKD) Suicide Anesthesia complication Bleeding disorder Family history of premature coronary artery disease Lung disease Hypertension Stroke Social History Smoking and tobacco/nicotine status: never used tobacco/nicotine Quit status (tobacco/nicotine): has quit using Year quit tobacco: 1994 Former quit date comment: smoked 20 years Second hand smoke exposure: Yes Alcohol intake: never Substance/Drug Use: never Adopted: No Caregiver/support person: No Lives independently: Yes Household members: spouse Housing: Other Details: Rehabbing at [facility] Marital status: Current occupational status: retired Current occupational exposures/hazards: No Do you think of yourself as: Straight/Heterosexual Current gender identity: Male Course Vital Signs: Vital signs: Vital Signs Temperature 98.1 F 06/01/24 14:55 Pulse Rate 78 06/01/24 22:03 Respiratory Rate 18 06/01/24 22:03 Blood Pressure 102/41 06/01/24 22:03 Pulse Oximetry 98 06/01/24 22:03 Oxygen Delivery Me thod Room Air 06/01/24 17:04 MDM - Back Pain/Injury Medical Decision Making Mr. Camejo was checked out at shift change, because he had gotten up and was evidently having a bit of trouble ambulating. Laboratory was drawn. In the meantime, he decided that he wanted to try walking again. He was able to ambulate with minimal assistance. He wanted to go home. He was advised to come back at any point should he become more weak, or have other problems. Close outpatient follow-up. Labs 06/01/24 15:47 06/01/24 15:47 Radiology Impressions Lumbar Spine CT 06/01/24 15:23 IMPRESSION: 1. No acute osseous findings. 2. Multilevel lumbar spondylosis. 3. Patchy areas of sclerosis with several lucent lesions in multiple vertebral bodies, compatible with prior metastases. If there is concern for new metastatic involvement, MRI lumbar spine without and with contrast or bone scan could be considered. Pelvis X-Ray 06/01/24 15:23 IMPRESSION: No definite acute osseous findings. If clinical concern persists, CT could be considered. Chest X-Ray 06/01/24 19:04 IMPRESSION: Patchy left basilar opacities could represent atelectasis versus infiltrate. Laboratory Results WBC 12.72 10^3/uL (3.29-11.43) H 06/01/24 15:47 RBC 3.95 10^6/uL (3.85-5.65) 06/01/24 15:47 Hgb 11.70 g/dL (11.27-16.99) 06/01/24 15:47 Hct 37.6 % (37-53) 06/01/24 15:47 MCV 95.2 fl (82-101) 06/01/24 15:47 MCH 29.6 pg (27-33) 06/01/24 15:47 MCHC 31.1 g/dL (30-55) 06/01/24 15:47 RDW 15.2 % (12.1-15.1) H 06/01/24 15:47 Plt Count 170 10^3/cmm (157-399) 06/01/24 15:47 MPV 10.6 fL (7.4-10.4) H 06/01/24 15:47 Neut % (Auto) 89.0 % 06/01/24 15:47 Lymph % (Auto) 2.8 % 06/01/24 15:47 [place] % (Auto) 6.8 % 06/01/24 15:47 Eos % (Auto) 0.5 % 06/01/24 15:47 Baso % (Auto) 0.2 % 06/01/24 15:47 Neut # (Auto) 11.32 10^3/uL (1.8-7.7) H 06/01/24 15:47 Lymph # (Auto) 0.4 10^3/uL (0.8-4.8) L 06/01/24 15:47 [place] # (Auto) 0.9 10^3/uL (0.2-0.9) 06/01/24 15:47 Eos # (Auto) 0.1 10^3/uL (0.0-0.8) 06/01/24 15:47 Baso # (Auto) 0.0 10^3/uL (0.0-0.1) 06/01/24 15:47 Nucleated RBC % (auto) 0 % 06/01/24 15:47 Nucleated RBCs # 0.0 /100WBC 06/01/24 15:47 PT 14.00 SECONDS (12.1-14.9) 06/01/24 15:47 INR 1.05 (0.8-1.2) 06/01/24 15:47 APTT 43.3 SECONDS (23.9-36.7) H 06/01/24 15:47 Sodium 139 mmol/L (136-145) 06/01/24 15:47 Potassium 4.8 mmol/L (3.5-5.1) 06/01/24 15:47 Chloride 102 mmol/L (98-107) 06/01/24 15:47 Carbon Dioxide 25 mmol/L (22-29) 06/01/24 15:47 Anion Gap 16.8 (5-19) 06/01/24 15:47 BUN 30 mg/dL (8-23) H 06/01/24 15:47 Creatinine 1.2 mg/dL (0.7-1.2) 06/01/24 15:47 GFR Calculation Not Reportable 06/01/24 15:47 Glucose 115 mg/dL (65-115) 06/01/24 15:47 Calculated Osmolality 295 mOsm/kg (285-295) 06/01/24 15:47 Calcium 9.4 mg/dL (8.5-10.5) 06/01/24 15:47 Total Bilirubin 0.4 mg/dL (0.15-1.2) 06/01/24 15:47 AST 29 U/L (0-40) 06/01/24 15:47 ALT 19 U/L (0-41) 06/01/24 15:47 Alkaline Phosphatase 128 U/L (40-130) 06/01/24 15:47 C-Reactive Protein 20.9 mg/L (0.0-4.9) H 06/01/24 15:47 Total Protein 5.8 g/dL (6.6-8.7) L 06/01/24 15:47 Albumin 4.0 g/dL (3.5-5.2) 06/01/24 15:47 Globulin 1.8 g/dL (1.3-4.6) 06/01/24 15:47 All radiology interpretation(s) finalized by discharge Discharge Plan Discharge Patient Disposition: Home Clinical Impression: Fall, Back pain Condition: Stable Prescriptions: New hydrocodone-acetaminophen 5-325 mg tablet 1 tab PO Q6H PRN (Reason: pain) Qty: 15 0RF No Action tamsulosin 0.4 mg capsule 0.4 mg PO QPM B complex-vitamin C-folic acid 100-1 mg tablet 1 tab PO DAILY pantoprazole [address] for susp in packet 40 mg PO DAILY acetaminophen [Tylenol Extra Strength] 500 mg tablet 500 mg PO Q6H PRN (Reason: Pain) midodrine 2.5 mg tablet 2.5 mg PO TID Discharge Orders: Discharge ED (Routine); Ordered 06/01/24 Ordered By: Milan Yun Discharge Diet: Usual diet Discharge Activity: Increase activity as tolerated Patient Instructions: Opioid Safety, Pain Management Activity Restrictions/Additional Instructions: Thank you for choosing [facility] for your healthcare needs today. It is very important that you follow up as instructed or that you return to the Emergency Department should you have concerns or if your condition changes or worsens in any way. You were seen in the emergency room after a fall. CT of your lumbar spine did not show any acute fractures. You will likely be very sore from soft tissue bruising for the next several days. You are given hydrocodone to use as needed. Follow-up with your primary care doctor if not improving or worsens. Coding Level of Care Code ED Manager [facility]um
--- NOTE | 2024-06-01 15:23 | XRR_ITS ---
PROCEDURE INFORMATION: Exam: XR Pelvis Exam date and time: 06/01/2024 3:47 PM Age: 84 years old Clinical indication: Injury or trauma; Fall; Blunt trauma (contusions or hematomas); Bilateral; Pelvic region TECHNIQUE: Imaging protocol: Radiologic exam of the pelvis. Views: 1 or 2 view. COMPARISON: CT chest abdpel w/*[id number] 04/19/2024 8:25 AM FINDINGS: Bones/joints: No definite acute fracture or dislocation. Moderate degenerative changes of the hips. Soft tissues: Unremarkable. XR/XR pelvis 1-2V* [id number] IMPRESSION: No definite acute osseous findings. If clinical concern persists, CT could be considered.
--- NOTE | 2024-06-01 15:23 | CTR_ITS ---
PROCEDURE INFORMATION: Exam: CT Lumbar Spine Without Contrast Exam date and time: 06/01/2024 4:12 PM Age: 84 years old Clinical indication: Injury or trauma; Fall; Blunt trauma (contusions or hematomas) TECHNIQUE: Imaging protocol: Computed tomography of the lumbar spine without contrast. Radiation optimization: All CT scans at this facility use at least one of these dose optimization techniques: automated exposure control; mA and/or kV adjustment per patient size (includes targeted exams where dose is matched to clinical indication); or iterative reconstruction. COMPARISON: 1. PT PET skull to thigh SUBS [id number] 10/31/2023 3:30 PM 2. MR lumbar spine wo con* [id number] 01/14/2022 4:40 PM RADIATION DOSE METRICS: Total DLP (mGy-cm): 882.51 FINDINGS: Bones/joints: No acute fracture. Vertebral body heights are maintained. Patchy heterogeneous appearance of the L2 vertebral body with a few areas of sclerosis as well as several lucencies. Patchy areas of sclerosis in the L1 and L3 vertebral bodies as well. Diffuse osseous demineralization. Moderate to advanced degenerative disc disease at L5-S1 with disc space height loss and endplate degenerative changes. Moderate degenerative changes throughout the remaining lumbar spine. Multilevel bilateral facet arthropathy, most pronounced in the lower lumbar spine. Kidneys and ureters: Punctate nonobstructing right renal calculus. Vasculature: Diffuse aortoiliac calcifications. Soft tissues: Unremarkable. CT/CT lumbar spine wo con* [id number] IMPRESSION: 1. No acute osseous findings. 2. Multilevel lumbar spondylosis. 3. Patchy areas of sclerosis with several lucent lesions in multiple vertebral bodies, compatible with prior metastases. If there is concern for new metastatic involvement, MRI lumbar spine without and with contrast or bone scan could be considered.
[2024-06-01] MEDS: morphine 4 mg/mL SDV 1 mL 2 MG IVP ×2 (15:45→17:03)
[2024-06-01] MEDS: ondansetron 2 mg/ML SDV 2 mL 4 MG IVP (15:45)
[2024-06-01] MEDS: metoclopramide 5 mg/mL SDV 2 mL 10 MG IVP (17:04)
--- NOTE | 2024-06-01 18:43 | PC.NURSE ---
this nurse with assistance from second nurse attempted to assist patient with ambulation. pt gait was unsteady, pt took small steps, needing full assistance from x2 nurses. pt became dizzy/nauseous. pt states this is not baseline. Dr. Ly notified.
--- NOTE | 2024-06-01 19:04 | XRR_ITS ---
PROCEDURE INFORMATION: Exam: XR Chest Exam date and time: 06/01/2024 7:12 PM Age: 84 years old Clinical indication: Prior surgery; Surgery date: 6+ months; Surgery type: Chest port; Patient HX: C/O general weakness. History of lymphoma. TECHNIQUE: Imaging protocol: Radiologic exam of the chest. Views: 1 view. COMPARISON: CT chest abdpel w/*[id number] 04/19/2024 8:25 AM FINDINGS: Lungs: Patchy left basilar opacities. Pleural spaces: Unremarkable. No pleural effusion. No pneumothorax. Heart/Mediastinum: Unremarkable. No cardiomegaly. Vasculature: Atherosclerotic aortic calcifications. Bones/joints: Surgical anchors in the left humeral head. Right reverse shoulder arthroplasty partially imaged. XR/XR chest 1V portable [id number] IMPRESSION: Patchy left basilar opacities could represent atelectasis versus infiltrate.
[2024-06-01 19:45] LABS: Basophils % 0.2 %; Eosinophils # 0.1 10^3/uL (0.0-0.8); Eosinophils % 0.5 %; Hematocrit 37.6 % (37-53); Lymphocytes # 0.4 10^3/uL (0.8-4.8); Lymphocytes % 2.8 %; Mean Corpuscular HGB Conc 31.1 g/dL (30-55); Mean Corpuscular Hemoglobin 29.6 pg (27-33); Mean Corpuscular Volume 95.2 fl (82-101); Mean Platelet Volume 10.6 fL (7.4-10.4); Monocytes # 0.9 10^3/uL (0.2-0.9); Monocytes % 6.8 %; Neutrophils # 11.32 10^3/uL (1.8-7.7); Nucleated Red Blood Cells % 0 %; Platelet Count 170 10^3/cmm (157-399); Red Blood Count 3.95 10^6/uL (3.85-5.65); Red Cell Distribution Width 15.2 % (12.1-15.1); White Blood Count 12.72 10^3/uL (3.29-11.43)
[2024-06-01 19:52] LABS: INR 1.05 (0.8-1.2)
[2024-06-01 19:53] LABS: Partial Thromboplastin Time 43.3 SECONDS (23.9-36.7)
[2024-06-01 20:06] LABS: Alanine Aminotransferase 19 U/L (0-41); Alkaline Phosphatase 128 U/L (40-130); Aspartate Amino Transferase 29 U/L (0-40); Blood Urea Nitrogen 30 mg/dL (8-23); C Reactive Protein 20.9 mg/L (0.0-4.9); Calcium 9.4 mg/dL (8.5-10.5); Carbon Dioxide 25 mmol/L (22-29); Chloride 102 mmol/L (98-107); Creatinine Clr Calc Pharmacy 57.5544; Globulin 1.8 g/dL (1.3-4.6); Glucose 115 mg/dL (65-115); Osmolality Calculated 295 mOsm/kg (285-295); Sodium 139 mmol/L (136-145); Total Bilirubin 0.4 mg/dL (0.15-1.2); Total Protein 5.8 g/dL (6.6-8.7)
[2024-06-01 20:08] LABS: Anion Gap 16.8 (5-19); Potassium 4.8 mmol/L (3.5-5.1)
== END 2024-06-01 22:04 | disposition home or self-care (01) ==
PROVIDERS: Emergency Provider Emergency Medicine
DX: M54.50 Low back pain, unspecified (principal); Z87.891 Personal history of nicotine dependence
CPT/HCPCS: 71045; 72131; 72170; 80053; 85025; 85610; 85730; 86140; 96374; 96375; 96376; 99285; J2270; J2405; J2765

== ENCOUNTER 2024-06-26 06:00 | Outpatient (RCR) | payer OTHER, SELFPAY | END 2024-07-26 23:59 | disposition home or self-care (01) | LOC: SPT 06:00 | PROVIDERS: Visit Provider Physician Assistant | DX: Z47.1 Aftercare following joint replacement surgery (principal); Z96.611 Presence of right artificial shoulder joint | CPT/HCPCS: 97110 ==

== ENCOUNTER → 2024-06-27 08:36 | Outpatient (BNVA) | payer OTHER, SELFPAY | PROVIDERS: Visit Provider Physician Assistant | DX: Z96.611 Presence of right artificial shoulder joint (principal); M12.811 Other specific arthropathies, not elsewhere classified, right shoulder | CPT/HCPCS: 73030; 99213 ==

== ENCOUNTER 2024-07-27 06:00 | Outpatient (RCR) | payer OTHER, SELFPAY | END 2024-08-23 23:59 | disposition home or self-care (01) | LOC: SPT 06:00 | PROVIDERS: Visit Provider Physician Assistant | DX: Z47.1 Aftercare following joint replacement surgery (principal); Z96.611 Presence of right artificial shoulder joint | CPT/HCPCS: 97110 ==

== ENCOUNTER 2024-08-23 12:05 | Oncology outpatient (recurring) (ONCR) | payer OTHER, SELFPAY ==
[2024-08-19 11:53] LABS: Basophils % 0.3 %; Eosinophils # 0.1 10^3/uL (0.0-0.8); Eosinophils % 1.7 %; Hematocrit 35.7 % (37-53); Lymphocytes # 0.6 10^3/uL (0.8-4.8); Lymphocytes % 9.1 %; Mean Corpuscular HGB Conc 31.1 g/dL (30-55); Mean Corpuscular Hemoglobin 28.8 pg (27-33); Mean Corpuscular Volume 92.7 fl (82-101); Mean Platelet Volume 9.4 fL (7.4-10.4); Monocytes # 0.7 10^3/uL (0.2-0.9); Monocytes % 10.9 %; Neutrophils # 4.97 10^3/uL (1.8-7.7); Neutrophils % 77.7 %; Nucleated Red Blood Cells % 0 %; Platelet Count 174 10^3/cmm (157-399); Red Blood Count 3.85 10^6/uL (3.85-5.65); Red Cell Distribution Width 14.4 % (12.1-15.1)
[2024-08-19 12:13] LABS: Alanine Aminotransferase 12 U/L (0-41); Albumin Level 3.6 g/dL (3.5-5.2); Alkaline Phosphatase 123 U/L (40-130); Anion Gap 13.8 (5-19); Aspartate Amino Transferase 13 U/L (0-40); Blood Urea Nitrogen 28 mg/dL (8-23); Calcium 8.9 mg/dL (8.5-10.5); Carbon Dioxide 27 mmol/L (22-29); Chloride 102 mmol/L (98-107); Globulin 2.6 g/dL (1.3-4.6); Glucose 103 mg/dL (65-115); Lactate Dehydrogenase 147 U/L (135-225); Osmolality Calculated 292 mOsm/kg (285-295); Potassium 4.8 mmol/L (3.5-5.1); Sodium 138 mmol/L (136-145); Total Bilirubin 0.3 mg/dL (0.15-1.2); Total Protein 6.2 g/dL (6.6-8.7)
--- NOTE | 2024-08-23 12:30 | PETR_ITS ---
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 Then, PET images were obtained. Attenuation corrected images were constructed using the CT scan. Fused images of PET and CT were reviewed. The standardized uptake values (SUV) reported below are maximum values within a region of interest, expressed in gm/ml. Exam includes orbital meatal line to mid-thigh. SUV normalization method: BodyWeight Radiopharmaceutical: 11.53 mCi F-18 FDG (Fluorodeoxyglucose), IV. Time of imaging post radiopharmaceutical administration: 48 minutes Injection site: left ac COMPARISON: PT PET skull to thigh [id number] 10/31/2023 3:30 PM FINDINGS: Brain: Visualized brain has normal physiologic uptake. Pharynx: No abnormal uptake. Larynx: No abnormal uptake. Lungs, pleura and trachea: No abnormal uptake. Heart: Normal physiologic uptake. Nqqctzgk-[id number] coronary artery calcifications. Mediastinal space: Focal mild increased FDG uptake in the subcarinal region, maximum SUV 3.4. There is no underlying significant lymphadenopathy on CT images. Liver: No abnormal uptake. Stable subcentimeter hepatic segment VIII cyst, non FDG avid. Gallbladder and biliary ducts: No abnormal uptake. Pancreas: No abnormal uptake. Spleen: No abnormal uptake. Adrenal glands: No abnormal uptake. Kidneys and ureters: Normal physiologic uptake. Stomach and bowel: No abnormal uptake. Urinary bladder: Prominent posterior bladder wall diverticulum with layering calcification. No abnormal uptake. Reproductive: Prostatomegaly, measuring 5.7 cm in largest transverse diameter. No abnormal uptake. Vasculature: No abnormal uptake. Lymph nodes: No abnormal uptake. No lymphadenopathy in the head, neck, chest, abdomen, pelvis, and extremities. Skeleton: Nonspecific focal increased FDG uptake within the proximal left humerus, maximum SUV 4.4, where there is mild patchy marrow heterogeneity. 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 Suture anchors in the left proximal humerus. Soft tissues: No abnormal uptake in the visualized head, neck, chest, abdomen, pelvis, and extremities. PET/PET skull to thigh [id number] IMPRESSION: 1. Nonspecific new focal increased FDG uptake within the proximal left humerus, where there is underlying heterogeneity. This finding may represent a new focal osseous metastasis, although remains indeterminate. Close attention on follow-up imaging is recommended. Alternatively, may consider contrast-enhanced MRI of the left proximal humerus. 2. Nonspecific focal increased FDG uptake in the subcarinal region. There is no visualized underlying lymphadenopathy. This finding may be artifactual. Close attention on follow-up imaging is recommended. 3. Otherwise, chronic and ancillary findings as above
== END 2024-08-23 23:59 | disposition home or self-care (01) ==
PROVIDERS: Visit Provider Internal Medicine Medical Oncology
DX: C79.51 Secondary malignant neoplasm of bone (principal); C83.398 Diffuse large B-cell lymphoma of other extranodal and solid organ sites
CPT/HCPCS: 36415; 78815; 80053; 83615; 85025; 99214; A9552

== ENCOUNTER 2024-08-24 06:00 | Outpatient (RCR) | payer OTHER, SELFPAY | END 2024-09-23 12:11 | disposition home or self-care (01) | LOC: SPT 06:00 | PROVIDERS: Visit Provider Physician Assistant | DX: Z47.1 Aftercare following joint replacement surgery (principal); Z96.611 Presence of right artificial shoulder joint | CPT/HCPCS: 97110 ==

== ENCOUNTER 2024-08-26 11:39 | Oncology outpatient (recurring) (ONCR) | payer OTHER, SELFPAY | END 2024-09-23 23:59 | disposition home or self-care (01) | PROVIDERS: Visit Provider Internal Medicine Medical Oncology | DX: Z08 Encounter for follow-up examination after completed treatment for malignant neoplasm (principal); Z85.72 Personal history of non-Hodgkin lymphomas; Z95.828 Presence of other vascular implants and grafts; Z96.611 Presence of right artificial shoulder joint | CPT/HCPCS: 99214 ==

== ENCOUNTER → 2024-09-25 09:07 | Outpatient (BNVA) | payer OTHER, SELFPAY | PROVIDERS: PCP Nurse Practitioner; Visit Provider Physician Assistant | DX: Z96.619 Presence of unspecified artificial shoulder joint (principal) | CPT/HCPCS: 73030; 99213 ==

== ENCOUNTER → 2025-01-21 14:38 | Outpatient (BNVA) | payer OTHER, MEDICARE, SELFPAY | PROVIDERS: PCP Nurse Practitioner; Visit Provider Podiatrist Foot & Ankle Surgery | DX: L97.512 Non-pressure chronic ulcer of other part of right foot with fat layer exposed (principal); G60.9 Hereditary and idiopathic neuropathy, unspecified; M20.21 Hallux rigidus, right foot; M20.22 Hallux rigidus, left foot; L03.115 Cellulitis of right lower limb | CPT/HCPCS: 11042; 99214 ==

== ENCOUNTER → 2025-01-29 14:33 | Outpatient (BNVA) | payer OTHER, MEDICARE, SELFPAY | PROVIDERS: PCP Nurse Practitioner; Visit Provider Podiatrist Foot & Ankle Surgery | DX: G60.9 Hereditary and idiopathic neuropathy, unspecified (principal); M20.21 Hallux rigidus, right foot; M20.22 Hallux rigidus, left foot; L97.512 Non-pressure chronic ulcer of other part of right foot with fat layer exposed | CPT/HCPCS: 99213 ==

== ENCOUNTER → 2025-02-11 14:14 | Outpatient (BNVA) | payer OTHER, SELFPAY | PROVIDERS: PCP Nurse Practitioner; Visit Provider Podiatrist Foot & Ankle Surgery | DX: G60.9 Hereditary and idiopathic neuropathy, unspecified (principal); M20.21 Hallux rigidus, right foot; M20.22 Hallux rigidus, left foot; L97.512 Non-pressure chronic ulcer of other part of right foot with fat layer exposed | CPT/HCPCS: 99213 ==

== ENCOUNTER 2025-02-21 07:59 | Oncology outpatient (recurring) (ONCR) | payer OTHER, SELFPAY ==
--- NOTE | 2025-02-21 08:30 | PETR_ITS ---
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 ; Additional info: Bony metastasis LABS AND CLINICAL REPORTS: Glucose: 121 mg/dl Treatment strategy for malignancy (PET staging): Restaging (PS) TECHNIQUE: Imaging protocol: Following at least four-hour fasting and following the injection of radiopharmaceutical, low dose CT images were obtained. Then, PET images were obtained. Attenuation corrected images were constructed using the CT scan. Fused images of PET and CT were reviewed. The standardized uptake values (SUV) reported below are maximum values within a region of interest, expressed in gm/ml. Exam includes orbital meatal line to mid-thigh. SUV normalization method: BodyWeight Radiopharmaceutical: 10.91 mCi F-18 FDG (Fluorodeoxyglucose), IV. Time of imaging post radiopharmaceutical administration: 48 minutes Injection site: RT WRIST COMPARISON: PT PET skull to thigh [id number] 08/23/2024 1:07 PM FINDINGS: Brain: Visualized brain has normal physiologic uptake. Pharynx: No abnormal uptake. Larynx: No abnormal uptake. Lungs, pleura and trachea: No abnormal uptake. Heart: Normal physiologic uptake. Ssyqsynk-[id number]-xnppjp coronary artery calcifications. Mediastinal space: No abnormal uptake. Liver: No abnormal uptake. Gallbladder and biliary ducts: No abnormal uptake. Pancreas: No abnormal uptake. Spleen: No abnormal uptake. Adrenal glands: No abnormal uptake. Kidneys and ureters: Normal physiologic uptake. Stomach and bowel: No abnormal uptake. Urinary bladder: Stable large posterior bladder diverticulum with layering calcifications within the bladder lumen, unchanged. No abnormal FDG uptake. Reproductive: Stable prostatomegaly, measuring 5.7 cm in maximal transverse dimension. No abnormal uptake. Vasculature: No abnormal uptake. Lymph nodes: No abnormal uptake. No lymphadenopathy in the head, neck, chest, abdomen, pelvis, and extremities. Resolution of previously noted subcarinal increased FDG uptake. Skeleton: Chronic left scapular fracture deformity. Status post right total shoulder arthroplasty with associated periarticular increased uptake. There is also degenerative uptake within the left glenohumeral joint which demonstrates [id number] degenerative changes. There are left humeral head suture anchors in place. There is persistent focal nonspecific increased FDG uptake within the proximal left humerus (image [id number]), maximum SUV 3.3, previously 4.4. There also some areas of focal uptake within bilateral proximal femoral without definitive underlying discrete lesion, maximum SUV 3.8, previously 4.1. Soft tissues: No abnormal uptake in the visualized head, neck, chest, abdomen, pelvis, and extremities. METRICS: Mediastinal blood pool: Mean SUV of 2.5 Liver uptake: Mean SUV of 2.6 PET/PET skull to thigh [id number] IMPRESSION: 1. Persistent foci of increased FDG uptake within the proximal left humerus and bilateral proximal femora. This again remains indeterminate and may represent osseous metastases. Continued surveillance is recommended. Alternatively, may consider contrast-enhanced MRI. 2. Resolution of previously noted FDG uptake within the subcarinal region. No new areas of abnormal uptake within the head/neck, chest, abdomen and pelvis. 3. Chronic ancillary findings as above.
== END 2025-02-23 23:59 | disposition home or self-care (01) ==
LOC: RAD 08:01 → ONCMED 08:02
PROVIDERS: PCP Nurse Practitioner; Visit Provider Internal Medicine Medical Oncology
DX: Z08 Encounter for follow-up examination after completed treatment for malignant neoplasm (principal); Z85.72 Personal history of non-Hodgkin lymphomas; Z95.828 Presence of other vascular implants and grafts; Z96.611 Presence of right artificial shoulder joint; C79.51 Secondary malignant neoplasm of bone; C83.39 Diffuse large B-cell lymphoma, extranodal and solid organ sites
CPT/HCPCS: 78815; A9552

== ENCOUNTER → 2025-02-26 13:46 | Outpatient (BNVA) | payer OTHER, SELFPAY | PROVIDERS: PCP Nurse Practitioner; Visit Provider Podiatrist Foot & Ankle Surgery | DX: G60.9 Hereditary and idiopathic neuropathy, unspecified (principal); M20.21 Hallux rigidus, right foot; M20.22 Hallux rigidus, left foot; L97.512 Non-pressure chronic ulcer of other part of right foot with fat layer exposed; L60.1 Onycholysis | CPT/HCPCS: 99213 ==

== ENCOUNTER 2025-03-04 07:58 | Oncology outpatient (recurring) (ONCR) | payer OTHER, SELFPAY ==
[2025-03-04 08:21] LABS: Hematocrit 37.7 % (37-53); Hemoglobin 11.70 g/dL (11.27-16.99); Mean Corpuscular HGB Conc 31.0 g/dL (30-55); Mean Corpuscular Hemoglobin 29.3 pg (27-33); Mean Corpuscular Volume 94.5 fl (82-101); Nucleated Red Blood Cells % 0 %; Platelet Count 176 10^3/cmm (157-399); Red Blood Count 3.99 10^6/uL (3.85-5.65); White Blood Count 5.97 10^3/uL (3.29-11.43)
[2025-03-04 08:40] LABS: Alanine Aminotransferase 11 U/L (0-41); Albumin Level 3.8 g/dL (3.5-5.2); Alkaline Phosphatase 121 U/L (40-130); Anion Gap 11.5 (5-19); Aspartate Amino Transferase 12 U/L (0-40); Blood Urea Nitrogen 24 mg/dL (8-23); Calcium 9.1 mg/dL (8.5-10.5); Carbon Dioxide 28 mmol/L (22-29); Chloride 106 mmol/L (98-107); Globulin 2.6 g/dL (1.3-4.6); Glucose 129 mg/dL (65-115); Osmolality Calculated 298 mOsm/kg (285-295); Potassium 4.5 mmol/L (3.5-5.1); Sodium 141 mmol/L (136-145); Total Protein 6.4 g/dL (6.6-8.7)
== END 2025-03-25 23:59 | disposition home or self-care (01) ==
PROVIDERS: PCP Nurse Practitioner; Visit Provider Internal Medicine Medical Oncology
DX: Z08 Encounter for follow-up examination after completed treatment for malignant neoplasm (principal); Z85.72 Personal history of non-Hodgkin lymphomas; Z96.611 Presence of right artificial shoulder joint; Z95.828 Presence of other vascular implants and grafts; Z87.891 Personal history of nicotine dependence
CPT/HCPCS: 36415; 73030; 80053; 83615; 85025; 99213; 99214

== ENCOUNTER → 2025-03-24 11:23 | Outpatient (BNVA) | payer OTHER, SELFPAY | PROVIDERS: PCP Nurse Practitioner; Visit Provider Podiatrist Foot & Ankle Surgery | DX: L97.512 Non-pressure chronic ulcer of other part of right foot with fat layer exposed (principal); G60.9 Hereditary and idiopathic neuropathy, unspecified; M20.21 Hallux rigidus, right foot; M20.22 Hallux rigidus, left foot; L60.1 Onycholysis; L03.116 Cellulitis of left lower limb | CPT/HCPCS: 11042; 99214 ==

== ENCOUNTER → 2025-04-08 13:57 | Outpatient (BNVA) | payer OTHER, SELFPAY | PROVIDERS: PCP Nurse Practitioner; Visit Provider Podiatrist Foot & Ankle Surgery | DX: G60.9 Hereditary and idiopathic neuropathy, unspecified (principal); M20.21 Hallux rigidus, right foot; M20.22 Hallux rigidus, left foot; L97.512 Non-pressure chronic ulcer of other part of right foot with fat layer exposed; L60.1 Onycholysis | CPT/HCPCS: 99213 ==

== ENCOUNTER → 2025-04-22 08:10 | Outpatient (BNVA) | payer OTHER, SELFPAY | PROVIDERS: PCP Nurse Practitioner; Visit Provider Student in an Organized Health Care Education/Training Program | DX: M17.11 Unilateral primary osteoarthritis, right knee (principal) | CPT/HCPCS: 20610; 73560; 73565; 99214; J3301; J9999 ==

== ENCOUNTER → 2025-05-06 14:15 | Outpatient (BNVA) | payer OTHER, SELFPAY | PROVIDERS: PCP Nurse Practitioner; Visit Provider Podiatrist Foot & Ankle Surgery | DX: G60.9 Hereditary and idiopathic neuropathy, unspecified (principal); M20.21 Hallux rigidus, right foot; M20.22 Hallux rigidus, left foot; L97.512 Non-pressure chronic ulcer of other part of right foot with fat layer exposed; L60.1 Onycholysis | CPT/HCPCS: 99213 ==

== ENCOUNTER → 2025-05-26 14:02 | Outpatient (BNVA) | payer OTHER, SELFPAY | PROVIDERS: PCP Nurse Practitioner; Visit Provider Podiatrist Foot & Ankle Surgery | DX: G60.9 Hereditary and idiopathic neuropathy, unspecified (principal); M20.21 Hallux rigidus, right foot; M20.22 Hallux rigidus, left foot; L97.512 Non-pressure chronic ulcer of other part of right foot with fat layer exposed; L60.1 Onycholysis | CPT/HCPCS: 99213 ==

== ENCOUNTER → 2025-06-11 14:47 | Outpatient (BNVA) | payer OTHER, SELFPAY | PROVIDERS: PCP Nurse Practitioner; Visit Provider Podiatrist Foot & Ankle Surgery | DX: G60.9 Hereditary and idiopathic neuropathy, unspecified (principal); M20.21 Hallux rigidus, right foot; M20.22 Hallux rigidus, left foot; L60.1 Onycholysis | CPT/HCPCS: 99213 ==